=== PATIENT | male | born 1935 | race Caucasian/White ===

== ENCOUNTER 2022-07-18 01:29 | Inpatient (IN) ==
[2022-07-18] MEDS ORDERED: ACETAMINOPHEN 1000 MG/100 ML IV IV ONE (01:52)
[2022-07-18 02:37] LABS: Basophils # (auto) 0.02 K/uL (0-0.2); Basophils % (auto) 0.2 %; Eosinophils # (auto) 0.01 K/uL (0-0.50); Eosinophils % (auto) 0.1 %; Hematocrit (blood only) 40.4 % (40.1-51.0); Hemoglobin 13.5 g/dl (14.0-18.0); Immature Granulocytes # (auto) 0.03 K/uL (0.00-0.02); Immature Granulocytes % (auto) 0.4 %; Lymphocytes # (auto) 0.91 K/uL (1.2-3.4); Lymphocytes % (auto) 11.1 %; Mean Corpuscular Hemoglobin 30.3 pg (25.0-34.0); Mean Corpuscular Hgb Conc 33.4 g/dL (32.0-36.0); Mean Corpuscular Volume 90.8 fL (80.0-100.0); Mean Platelet Volume 12.7 fL (9.4-12.4); Monocytes # (auto) 1.27 K/uL (0.24-0.82); Monocytes % (auto) 15.4 %; Neutrophils # (auto) 5.99 K/uL (1.4-6.5); Neutrophils % (auto) 72.8 %; Platelet Count 125 K/uL (130-400); RDW Coefficient of Variation 14.7 % (11.5-14.5); RDW Standard Deviation 49.1 fL (36.4-46.3); Red Blood Count 4.45 M/uL (4.63-6.08); White Blood Count 8.23 K/ul (4.8-10.8)
[2022-07-18 02:47] LABS: Albumin Globulin Ratio 1.7 (0.9-2); Albumin Level 4.2 gm/dl (3.4-5.0); BUN Creatinine Ratio 10.9 (10-20); Bilirubin,Total 0.7 mg/dl (0.2-1.0); Calcium 9.2 mg/dl (8.5-10.1); Creatinine Clr Calc Pharmacy 60.4 ml/min; Est GFR (African American) 70.6 ml/min; Est GFR (Non-African American) 60.9 ml/min; Globulin 2.5 gm/dl (2.5-4.0); Potassium 4.4 mmol/L (3.5-5.1); Total Protein 6.7 gm/dl (6.0-8.3)
[2022-07-18 03:22] LABS: Influenza A virus by PCR Negative (Neg); Influenza B virus by PCR Negative (Neg); RSV by PCR Negative (Neg)
[2022-07-18 03:23] LABS: SARS CoV2 RNA(COVID-19) InHosp POSITIVE (Negative)
[2022-07-18] MEDS ORDERED: DEXAMETHASONE SOD INJ 4 MG/ML VIAL IV STA (03:55)
[2022-07-18] MEDS ORDERED: SODIUM CHLORIDE 0.9% 500 ML IV ONE (03:55)
[2022-07-18] MEDS ORDERED: SODIUM CHLORIDE 0.9% 1000ML 1,000 ML IV SCH (08:31)
[2022-07-18] MEDS ORDERED: ACETAMINOPHEN 325 MG TAB PO PRN (08:31)
[2022-07-18] MEDS ORDERED: NITROGLYCERIN SL 0.4 MG/TAB TAB SL PRN (08:31)
[2022-07-18] MEDS ORDERED: REMDESIVIR 200 MG in SODIUM CHLORIDE 0.9% 210 ML IV ONE (09:00)
[2022-07-18] MEDS: cefTRIAXone SODIUM 2,000 MG in DEXTROSE 5% 50 ML IV SCH (09:35)
[2022-07-18] MEDS: PANTOprazole 40 MG TAB PO SCH (09:36)
[2022-07-18] MEDS: DULoxetine HCL 20 MG CAP PO SCH (09:36)
[2022-07-18] MEDS: ATORVASTATIN 40 MG TAB PO SCH (09:36)
[2022-07-18] MEDS: GABAPENTIN 600 MG TAB PO SCH ×3 (09:36→21:11)
[2022-07-18] MEDS: ASPIRIN 81 MG ECTAB PO SCH (09:36)
[2022-07-18] MEDS: METOPROLOL SUCC 50MG EXT REL TAB PO SCH (09:38)
[2022-07-18] MEDS: ENOXAPARIN INJ 40 MG/0.4 ML SYR SQ SCH (09:38)
[2022-07-18] MEDS: FLUTICASONE FUROATE 100MCG 14 PUFFS/INHALER INH SCH (09:39)
--- NOTE | 2022-07-18 09:56 | History and Physical Report ---
DATE OF ADMISSION: 07/18/2022. CHIEF COMPLAINT: Illness, COVID positive. HISTORY OF PRESENT ILLNESS: This is an 86-year-old male with past medical history significant for hyperlipidemia, diabetes, idiopathic chronic gout, paroxysmal atrial fibrillation in the setting of severe sepsis, history of abdominal aortic aneurysm without rupture, history of CAD, status post RCA stent, history of nonmelanoma skin cancer, chronic kidney disease stage III, history of peripheral vascular disease, who presents with illness and found to have COVID positive. As per the , the patient has symptoms since last , about 4 days ago, with cough and nasal congestion and was falling frequently, fell 3 times, that is why he was brought to the hospital. In the hospital, he was spiking temperature, T-max of 38.6 and his COVID positive and he was hypoxemic, currently requiring 4 liters of oxygen. When he fell, he bumped his leg and he has a small cut in his small toe on the left leg, there are erythematic changes of the left foot. As per , the redness is chronic. The patient is resting comfortably, otherwise denies any shortness of breath, denies chest pain, denies any headache. No back pain, no belly pain, no pain in the legs. Appetite is okay. No blurred visions, no earache. Currently, denies runny nose. Has some sore throat from coughing. Somewhat constipated. Normal bladder movements. ALLERGIES: No known drug allergies. PAST MEDICAL HISTORY: As mentioned above. PAST SURGICAL HISTORY: Colonoscopy, EGD with biopsy, lasering of secondary cataract, tonsillectomy. MEDICATIONS: The patient is on aspirin 81 mg p.o. daily, atorvastatin 40 mg p.o. daily, duloxetine 20 mg p.o. daily, gabapentin 600 mg p.o. t.i.d., metformin 500 mg p.o. b.i.d., metoprolol succinate 50 mg p.o. daily, nitroglycerin 0.4 mg sublingual p.r.n., omeprazole 20 mg p.o. daily. FAMILY HISTORY: Significant for son has cancer, uncle has cancer, daughter has diabetes. SOCIAL HISTORY: . Quit smoking in 1980s, smoked 1 pack a day for 37 years. No alcohol use. No drug use. REVIEW OF SYSTEMS: As per HPI. Rest of review of systems is negative. PHYSICAL EXAMINATION: GENERAL: The patient is of moderate build, currently not in acute distress. VITAL SIGNS: Temperature 38.6, pulse 69, respiratory rate 17, blood pressure 101/70, oxygen 97% on 4 liters. HEENT: Pupils equal, round and reactive to light. Oral mucosa moist. NECK: No JVD. No neck masses. CARDIOVASCULAR: S1 and S2 heard. Regular rate and rhythm. No murmur, no gallop. RESPIRATORY SYSTEM: Normal AP diameter. No accessory muscle use. No wheezing, no crackles. ABDOMEN: Soft, bowel sounds present, nontender, no distention. CENTRAL NERVOUS SYSTEM: Cranial nerves II through XII are grossly intact, nonfocal. EXTREMITIES: Small cut seen in the lateral aspect of the small toe in the left leg with erythematous changes, mild warmth of the left foot. LABORATORY DATA: WBC 8.2, hemoglobin 13.5, hematocrit 40.4, platelets 125. Sodium 135, potassium 4.4, chloride 99, bicarb 26, BUN 12, creatinine 1.1, serum glucose 147. Lactate 2.1, calcium 9.2, total bilirubin 0.7, AST 45, ALT 48, alkaline phosphatase 73. SARS-CoV-2 PCR positive. Influenza A and B PCR negative. RSV PCR negative. Chest x-ray: No acute findings. EKG: Normal sinus rhythm at a rate of 80, some Q waves in inferior leads. No acute ST-T changes seen. ASSESSMENT AND PLAN: This 86-year-old male presents with ongoing illness and found to be COVID positive. 1. COVID-19 positive, pneumonia, hypoxia requiring oxygen. Symptoms started last . Meets criteria for remdesivir.Will start him on remdesivir, Decadron. Follow the remdesivir laboratories. Gentle fluids. Closely monitor in the med-telemetry. Follow the repeat lactic acid level. 2. Thrombocytopenia, platelets of 125, possibly from COVID. We will follow the repeat laboratories. 3. Possible cellulitis in the left foot. Start him on antibiotic, Rocephin. We will follow the response. 4. History of diabetes. Hold metformin. Place on insulin sliding scale. Follow the blood sugar while the patient is on steroids. 5. History of coronary artery disease, status post stent. Continue aspirin, statin, and metoprolol succinate. 6. History of paroxysmal atrial fibrillation when he had severe sepsis, not on anticoagulation, on aspirin and metoprolol. 7. History of hyperlipidemia, on statin. 8. History of blood pressure, on metoprolol. 9. History of gout, on allopurinol. 10. History of gastroesophageal reflux disease, on omeprazole. 11. Chronic kidney disease stage III, presents with creatinine of 1.1. We will follow the laboratories. 12. Deep venous thrombosis prophylaxis, Lovenox. We will monitor the platelets. DISPOSITION: Closely monitor in the med tele. PT/OT prior to discharge. Social service to help with discharge planning. Job ID: [id number] [email or web address]
[2022-07-18] MEDS: INSULIN ASPART PER UNIT SC SCH ×4 (10:06→21:11)
--- NOTE | 2022-07-18 10:56 | XRay Report ---
XR chest 1V portable CLINICAL HISTORY: Shortness of breath TECHNIQUE: Single frontal radiograph of the chest was obtained. Comparison: Comparison is made to chest radiograph 03/19/2019 FINDINGS: No lines and tubes are seen. Calcified aortic knob is seen. The lungs are clear. No evidence of pleur al effusion or pneumothorax. Healed rib fractures are seen. IMPRESSION: No acute chest disease. ACT 112: Negative or not required by law. Electronically signed by: Travis Perry M.D. 07/18/2022 10:55 AM
--- NOTE | 2022-07-18 12:49 | Electrocardiogram Report ---
Test Reason : Blood Pressure : / mmHG Vent. 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
--- NOTE | 2022-07-18 15:42 | Communication Note ---
Date of Service: July 18, 2022 Patient seen and examined at emergency department. Is comfortably lying in the bed; on 2 L of oxygen by nasal cannula. He is febrile to 38.6C. He denies any shortness of breath or chest pain. On examinationlungs are clear. S1-S2 heard, no murmur. Erythema, redness present in left foot. Assessment/plan COVID-19 infection -continue remdesivir and dexamethasone. Wean off oxygen to maintain saturation more than 92%. Left foot cellulitiscontinue on ceftriaxone. Follow blood cultures. CT abdomen and pelvis shows distended bladder; will order bladder scan and straight cath if necessary. We will send urinalysis. Continue home meds.
--- NOTE | 2022-07-18 16:03 | Emergency Department Note ---
Impression & Plan Hypoxia, COVID Admit to the [facility] ED Provider Note NAME: BRADY URIBE AGE: 86 SEX: M ARRIVES VIA: Ambulance INFORMANT: Patient and his ED PROVIDER(S): Justyna Mayo DO CHIEF COMPLAINT: Weakness/fall PLAN: Disposition: Admit to the [facility] Condition: Guarded MEDICAL DECISION MAKING: This is an 86-year-old male patient who presents to the emergency department with unsteadiness, weakness and multiple falls over the past 5 days. Patient has become increasingly delirious with significant upper respiratory congestion. Patient has a fever of 38.6 and is noted to be COVID-positive. On presentation to the emergency department. O2 saturations were low and he required 6 L via nasal cannula to maintain saturations above 90%. The patient was given IV normal saline solution and steroids here in the emergency department. [facility]. Triage Nursing notes reviewed and agree with them. Additional history obtained from the patient's Prior medical records reviewed Vital Signs: reviewed and remarkable for fever Differential diagnosis: Pneumonia, COVID-19, sepsis, bacteremia ER treatment provided: IV normal saline bolus IV Decadron Diagnostics interpreted by me: ECG: Normal sinus rhythm at [address] segment elevation or signs of ischemia. There is no ectopy Cardiac Monitoring: Normal sinus rhythm at 63 Laboratory studies: See below Imaging studies: Portable chest x-ray: No acute pulmonary infiltrates or consolidations. HPI: 86/M arrives for evaluation of generalized weakness and falls. Patient developed increasing weakness over the past 5 days. He is become unsteady on his feet with significant respiratory congestion. The patient is vaccinated against COVID. The patient's describes him as becoming confused and slightly delirious. ROS: See above HPI for pertinent positives & negatives. A total of 10 systems reviewed and were otherwise negative. PAST MEDICAL HISTORY:See Below PAST SURGICAL HISTORY:See Below FAMILY HISTORY:See Below SOCIAL HISTORY:See Below HOME MEDICATIONS:See list ALLERGIES:None VITALS:See Below PHYSICAL EXAMINATION: HEENT: Head - normocephalic and atraumatic Pupils are equal, round, and reactive to light. Extraocular eye muscles are intact, and sclera are anicteric. Nose - moist nasal mucosa without discharge. Mouth - moist buccal mucosa. Oropharynx is nonerythematous and there is no tonsillar exudate or edema noted. Neck: Supple; no JVD, nuchal rigidity, cervical lymphadenopathy, or auscultated bruits. Heart: Regular rate and rhythm. There is a normal S1 and S2 with no murmurs, clicks, or gallops appreciated. Lungs: Clear to auscultation bilaterally with no wheezes, rales, or rhonchi. Abdomen: Soft, completely nontender, nondistended, with good bowel sounds. There are no palpable pulsatile masses or hepatosplenomegaly. There is no guard ing, rigidity, or rebound noted. Extremities: No evidence of cyanosis, clubbing, or edema. There are easily palpable peripheral pulses. Skin: warm and dry with good turgor and no rashes. ED COURSE: Times/Reassessments: 320: Was evaluated in room B 10. A complete history and physical was performed. A septic protocol was performed. Laboratory studies were drawn. The patient remained on 6 L of O2 by nasal cannula to maintain his O2 saturations. Portable chest x-ray was performed. A COVID swab was sent. He was bolused with IV normal saline solution. A twelve-lead EKG was obtained as described above. An order was placed for continuous cardiac monitoring. Patient was in a normal sinus rhythm at a rate of 63. Patient was given IV De cadron. Blood cultures were obtained. [facility] for further management. I have personally spent greater than 40 minutes of critical care time in the direct management of this patient. This includes bedside care, interpretation of diagnostic studies, and testing, discussion with consultants, patient, and family members, and other required patient management activities. This 40 minutes is in excess of all separately billable procedures. Justyna Mayo DO Past Med/Surg History Medical History (Updated 07/18/22 @ 16:03 by Justyna Mayo DO) Diabetes mellitus Social History Smoking Status: Former smoker Hx Alcohol Use: No Hx Substance Use: No Copy Writer Required: No Beliefs That Will Affect Care: None Current Living Situation: Spouse Feels Safe at Home: Yes Assistive Devices: Cane Allergies Allergies Allergy/AdvReac Type Severity Reaction Status Date / Time No Known Allergies Allergy Mild Unverified 03/20/19 00:18 Home Meds Home Medications Medication Instructions Recorded Confirmed aspirin 81 mg tablet,delayed 81 mg PO DAILY 03/20/19 07/18/22 release (Aspir-) metformin 500 mg tablet 500 mg PO AMPM 03/20/19 07/18/22 metoprolol succinate 50 mg 50 mg PO DAILY 03/20/19 07/18/22 tablet,extended release 24 hr nitroglycerin 0.4 mg sublingual 0.4 mg sublingual .PRN PRN Chest 03/20/19 07/18/22 tablet (Nitrostat) Pain omeprazole 20 mg capsule,delayed 20 mg PO DAILY 03/20/19 07/18/22 release atorvastatin 40 mg tablet 40 mg PO DAILY 07/18/22 07/18/22 duloxetine 20 mg capsule,delayed 20 mg PO DAILY 07/18/22 07/18/22 release gabapentin 600 mg tablet 600 mg PO TID 07/18/22 07/18/22 Results & Data (ED) Vital Signs Vital Signs - 24 hr 07/18/22 02:01 07/18/22 03:00 07/18/22 03:27 Temperature 38.6 C H Temperature Source Oral Pulse Rate 90 74 73 Pulse Rate from SpO2 Sensor 75 Respiratory Rate 21 16 12 Blood Pressure 123/67 93/60 L 93/42 L Blood Pressure Mean 85 71 59 Pulse Oximetry 94 97 98 Oxygen Delivery Method Nasal Cannula Nasal Cannula Nasal Cannula Oxygen Flow Rate 6 6 6 Sepsis Recent Fever Within 48 Hours Yes Sepsis New/Unexplained Change in Mental Status Yes Sepsis Action Taken by Nursing Previously Notified 07/18/22 03:53 07/18/22 04:00 07/18/22 04:13 Temperature Temperature Source Pulse Rate 76 72 71 Pulse Rate from SpO2 Sensor Respiratory Rate 12 21 24 Blood Pressure 93/53 L 107/56 L 106/54 L Blood Pressure Mean 66 73 71 Pulse Oximetry 95 95 96 Oxygen Delivery Method Nasal Cannula Nasal Cannula Nasal Cannula Oxygen Flow Rate 6 6 4 Sepsis Recent Fever Within 48 Hours Sepsis New/Unexplained Change in Mental Status Sepsis Action Taken by Nursing 07/18/22 04:30 07/18/22 05:00 Temperature Temperature Source Pulse Rate 68 69 Pulse Rate from SpO2 Sensor Respiratory Rate 19 17 Blood Pressure 113/57 L 101/70 Blood Pressure Mean 75 80 Pulse Oximetry 96 97 Oxygen Delivery Method Nasal Cannula Nasal Cannula Oxygen Flow Rate 4 4 Sepsis Recent Fever Within 48 Hours Sepsis New/Unexplained Change in Mental Status Sepsis Action Taken by Nursing Laboratory Data Result diagrams: 07/18/22 01:44 07/18/22 01:44 Lab Results 07/18/22 07/18/22 07/18/22 Range/Units 01:44 01:44 03:55 WBC 8.23 (4.8-10.8) K/ul RBC 4.45 L (4.63-6.08) M/uL Hgb 13.5 L (14.0-18.0) g/dl Hct 40.4 (40.1-51.0) % MCV 90.8 (80.0-100.0) fL MCH 30.3 (25.0-34.0) pg MCHC 33.4 (32.0-36.0) g/dL RDW Std Deviation 49.1 H (36.4-46.3) fL RDW Coeff of Sandie 14.7 H (11.5-14.5) % Plt Count 125 L (130-400) K/uL MPV 12.7 H (9.4-12.4) fL Immature Gran % (Auto) 0.4 % Neut % (Auto) 72.8 % Lymph % (Auto) 11.1 % Armstrong % (Auto) 15.4 % Eos % (Auto) 0.1 % Baso % (Auto) 0.2 % Neut # (Auto) 5.99 (1.4-6.5) K/uL Lymph # (Auto) 0.91 L (1.2-3.4) K/uL Armstrong # (Auto) 1.27 H (0.24-0.82) K/uL Eos # (Auto) 0.01 (0-0.50) K/uL Baso # (Auto) 0.02 (0-0.2) K/uL Immature Gran # (Auto) 0.03 H (0.00-0.02) K/uL Sodium 135 L (136-145) mmol/L Potassium 4.4 (3.5-5.1) mmol/L Chloride 99 (98-107) mmol/L Carbon Dioxide 26 (21-32) mmol/L Anion Gap 10 (3-11) BUN 12 (6-23) mg/dl Creatinine 1.10 (0.6-1.4) mg/dl Est Cr Clr Drug Dosing 60.4 ml/min Est GFR ( Amer) 70.6 ml/min Est GFR (Non-Af Amer) 60.9 ml/min BUN/Creatinine Ratio 10.9 (10-20) Glucose 147 H (70-99(Fasting)) mg/dl Lactate 2.1 H* (0.4-2.0) mmol/L Calcium 9.2 (8.5-10.1) mg/dl Total Bilirubin 0.7 (0.2-1.0) mg/dl AST 45 H (13-39) U/L ALT 48 (7-52) U/L Alkaline Phosphatase 73 (34-104) U/L Total Protein 6.7 (6.0-8.3) gm/dl Albumin 4.2 (3.4-5.0) gm/dl Globulin 2.5 (2.5-4.0) gm/dl Albumin/Globulin Ratio 1.7 (0.9-2) Administered Medications Aspirin (Aspirin 81 Mg Ectab) 81 mg PO DAILY [place] Stop: 08/17/22 08:59 Last Admin: 07/18/22 09:36 Dose: 81 mg Documented By: OL Atorvastatin Calcium (Atorvastatin 40 Mg Tab) 40 mg PO DAILY [place] Stop: 08/17/22 08:59 Last Admin: 07/18/22 09:36 Dose: 40 mg Documented By: OL Duloxetine HCl (Duloxetine Hcl 20 Mg Cap) 20 mg PO DAILY [place] Stop: 08/17/22 08:59 Last Admin: 07/18/22 09:36 Dose: 20 mg Documented By: OL Enoxaparin Sodium (Enoxaparin Inj 40 Mg/0.4 Ml Syr) 40 mg SQ Q24H [place] Stop: 08/17/22 08:59 Last Admin: 07/18/22 09:38 Dose: 40 mg Documented By: OL Fluticasone Furoate (Fluticasone Furoate 100mcg 14 Puffs/Inhaler) 1 puffs INH DAILY [place] Stop: 08/17/22 08:59 Last Admin: 07/18/22 09:39 Dose: 1 puffs Documented By: OL Gabapentin (Gabapentin 600 Mg Tab) 600 mg PO TID [place] Stop: 08/17/22 08:59 Last Admin: 07/18/22 13:52 Dose: 600 mg Documented By: Admin: 07/18/22 09:36 Dose: 600 mg Documented By: HAL Ceftriaxone Sodium 2,000 mg/ (Dextrose) 70 mls @ 100 mls/hr IV Q24H [place]; Protocol Stop: 07/25/22 08:59 Last Infusion: 07/18/22 10:17 Dose: 0 mls/hr Documented By: Admin: 07/18/22 09:35 Dose: 100 mls/hr Documented By: HAL Insulin Aspart (Insulin Aspart Per Unit) 0 units SC ACHS [place] Stop: 08/17/22 08:30 Last Admin: 07/18/22 13:52 Dose: 4 units Documented By: LUIS FELIPE Co-signed By: KJ Admin: 07/18/22 10:06 Dose: 4 units Documented By: HAL Co-signed By: NATHAN Metoprolol Succinate (Metoprolol Succ 50mg Ext Rel Tab) 50 mg PO DAILY [place] Stop: 08/17/22 08:59 Last Admin: 07/18/22 09:38 Dose: 50 mg Documented By: HAL Pantoprazole Sodium (Pantoprazole 40 Mg Tab) 40 mg PO DAILY [place] Stop: 08/17/22 08:59 Last Admin: 07/18/22 09:36 Dose: 40 mg Documented By: HAL Discontinued Medications Acetaminophen (Acetaminophen 1000 Mg/100 Ml Iv) Confirm Administered Dose 1,000 mg IV .STK-MED ONE Stop: 07/18/22 01:53 Last Admin: 07/18/22 04:11 Dose: Not Given Documented By: LYNETTE Dexamethasone (Dexamethasone Sod Inj 4 Mg/Ml Vial) 10 mg IV NOW STA Stop: 07/18/22 03:56 Last Admin: 07/18/22 04:09 Dose: 10 mg Documented By: LYNETTE Sodium Chloride (Nss) 500 mls @ 999 mls/hr IV .Q31M ONE Stop: 07/18/22 04:25 Last Infusion: 07/18/22 04:40 Dose: 0 mls/hr Documented By: Admin: 07/18/22 04:09 Dose: 999 mls/hr Documented By: LYNETTE Sodium Chloride (Nss 1000ml) 1,000 mls @ 125 mls/hr IV .Q8H [place] Stop: 07/18/22 09:30 Last Admin: 07/18/22 10:24 Dose: 125 mls/hr Documented By: HAL Remdesivir 200 mg/ Sodium (Chloride) 250 mls @ 125 mls/hr IV ONE ONE; Protocol Stop: 07/18/22 10:59 Last Infusion: 07/18/22 12:53 Dose: 0 mls/hr Documented By: LUIS FELIPE Admin: 07/18/22 10:24 Dose: 125 mls/hr Documented By: HAL Imaging Data Radiologist's Impression: Chest X-Ray 07/18/22 02:26 XR chest 1V portable CLINICAL HISTORY: Shortness of breath TECHNIQUE: Single frontal radiograph of the chest was obtained. Comparison: Comparison is made to chest radiograph 03/19/2019 FINDINGS: No lines and tubes are seen. Calcified aortic knob is seen. The lungs are clear. No evidence of pleural effusion or pneumothorax. Healed rib fractures are seen. IMPRESSION: No acute chest disease. ACT 112: Negative or not required by law. Electronically signed by: Travis Perry M.D. 07/18/2022 10:55 AM Discharge Plan Visit Data Chief Complaint: Illness Stated Complaint: FALLS/UNSTEADY/WEAK/FEVER ED Provider: Justyna Mayo Discharge Problem: Hypoxia, COVID Patient Disposition: Admitted As Inpatient Discharge Instructions Interventions: ED Discharge Assessment Last Done: 07/18/22 08:32
[2022-07-18 18:29] LABS: Appearance Urine Clear (Clear); Bilirubin Urine Negative (Negative); Blood Urine Negative (Negative); Color Urine Yellow; Glucose Urine UA Negative (Negative); Ketones Urine Negative (Negative); Leukocyte Esterase Urine Negative (Negative); Nitrite Urine Negative (Negative); Protein Urine Negative (Negative); Specific Gravity Urine 1.016 (1.000-1.030); Urobilinogen Urine Negative (Negative)
[2022-07-19 06:08] LABS: Hematocrit (blood only) 36.3 % (40.1-51.0); Hemoglobin 12.4 g/dl (14.0-18.0); Immature Granulocytes # (auto) 0.03 K/uL (0.00-0.02); Immature Granulocytes % (auto) 0.4 %; Lymphocytes # (auto) 1.66 K/uL (1.2-3.4); Lymphocytes % (auto) 20.3 %; Mean Corpuscular Hemoglobin 30.8 pg (25.0-34.0); Mean Corpuscular Hgb Conc 34.2 g/dL (32.0-36.0); Mean Corpuscular Volume 90.1 fL (80.0-100.0); Mean Platelet Volume 12.5 fL (9.4-12.4); Monocytes # (auto) 0.81 K/uL (0.24-0.82); Monocytes % (auto) 9.9 %; Neutrophils # (auto) 5.68 K/uL (1.4-6.5); Neutrophils % (auto) 69.4 %; Platelet Count 124 K/uL (130-400); RDW Standard Deviation 49.2 fL (36.4-46.3); Red Blood Count 4.03 M/uL (4.63-6.08); White Blood Count 8.18 K/ul (4.8-10.8)
[2022-07-19 06:38] LABS: Albumin Globulin Ratio 1.8 (0.9-2); Albumin Level 3.9 gm/dl (3.4-5.0); BUN Creatinine Ratio 13.7 (10-20); Bilirubin,Total 0.5 mg/dl (0.2-1.0); Calcium 8.7 mg/dl (8.5-10.1); Creatinine Clr Calc Pharmacy 62.7 ml/min; Est GFR (African American) 77.3 ml/min; Est GFR (Non-African American) 66.7 ml/min; Globulin 2.2 gm/dl (2.5-4.0); Magnesium 2.1 mg/dl (1.7-2.4); Potassium 4.1 mmol/L (3.5-5.1); Total Protein 6.1 gm/dl (6.0-8.3)
[2022-07-19] MEDS: ASPIRIN 81 MG ECTAB PO SCH (08:37)
[2022-07-19] MEDS: PANTOprazole 40 MG TAB PO SCH (08:37)
[2022-07-19] MEDS: ATORVASTATIN 40 MG TAB PO SCH (08:38)
[2022-07-19] MEDS: GABAPENTIN 600 MG TAB PO SCH ×3 (08:38→21:24)
[2022-07-19] MEDS: DULoxetine HCL 20 MG CAP PO SCH (08:38)
[2022-07-19] MEDS: METOPROLOL SUCC 50MG EXT REL TAB PO SCH (08:38)
[2022-07-19] MEDS: FLUTICASONE FUROATE 100MCG 14 PUFFS/INHALER INH SCH (08:40)
[2022-07-19] MEDS: ENOXAPARIN INJ 40 MG/0.4 ML SYR SQ SCH (08:40)
[2022-07-19 08:43] LABS: Estimated Average Glucose 169 mg/dl; Hemoglobin A1C 7.5 % (4.5-5.6)
[2022-07-19] MEDS: INSULIN ASPART PER UNIT SC SCH ×4 (08:46→21:30)
[2022-07-19] MEDS: dexAMETHasone 6 MG in SYRINGE 0 ML IV SCH (09:02)
[2022-07-19] MEDS: cefTRIAXone SODIUM 2,000 MG in DEXTROSE 5% 50 ML IV SCH (09:04)
--- NOTE | 2022-07-19 11:17 | Urology Consultation ---
Date of Consultation July 19, 2022 Assessment & Plan (1) Urinary retention: Plan 86yo M admitted with Covid-19, pneumonia, hypoxia requiring oxygen. Patient was subsequently found to be in urinary retention and a Bañuelos catheter was placed with immediate return of 1375ml of urine. Urology consulted for bladder outlet obstruction. CTAP imaging reviewed - Prostatomegaly with urinary bladder distention and wall thickening noted, possible RHOADES. Afebrile and hemodynamically stable. Labs reviewed-no leukocytosis and normal renal function. Urinalysis 07/18 unremarkable. Bañuelos catheter intact, draining clear yellow urine. Plan- Recommend maintaining catheter for 7-10 days to allow for bladder rest/max decompression. Will arrange outpatient TOV. Can also consider addition of flomax and finasteride if no contraindications. Will arrange outpatient follow-up with our service. Urology will sign-off for now. Please contact us any further questions, concerns, or changes in patient status. History of Present Illness Reason for Consultation: Bladder outlet obstruction Attending Physician: Doyle Ward MD History of Present Illness This is an 86-year-old male with PMHx significant for DM, Afib w/RVR, GERD, HLD, CKD, CAD s/p RCA stent, PVD who presented with ill feelings and was admitted with Covid-19, pneumonia, hypoxia requiring oxygen, and thrombocytopenia. Urology consulted for bladder outlet obstruction. A CT abdomen pelvis was obtained on arrival and notable for prostamegaly with urinary bladder distention and wall thickening. He was bladder scanned for a PVR of > 1150ml. A 16 Yi Bañuelos catheter was placed by nursing with immediate return of 1375 mL of urine. Patient examined at bedside this AM. Awake, resting in bed on arrival. On isolation precautions for COVID-19. at bedside. Bañuelos catheter intact, draining clear yellow urine. Denies any pain or discomfort at present. No fevers or chills. No nausea or vomiting. He denies a prior urological history. Does not follow with a urologist. Denies personal and family history of bladder, kidney, or prostate issues. Former tobacco use. At baseline, he notes some urinary urgency, frequency, and slow stream. Denies any hematuria or dysuria. Nocturia 2-3. Notes some dribbling. Feels he empties for the most part. Has never taken any urinary medications. Allergies Allergy/AdvReac Type Severity Reaction Status Date / Time No Known Allergies Allergy Mild Unverified 03/20/19 00:18 Home Medications Medication Instructions Recorded Confirmed Type aspirin 81 mg tablet,delayed 81 mg PO DAILY 03/20/19 07/18/22 History release (Aspir-) metformin 500 mg tablet 500 mg PO AMPM 03/20/19 07/18/22 History metoprolol succinate 50 mg 50 mg PO DAILY 03/20/19 07/18/22 History tablet,extended release 24 hr nitroglycerin 0.4 mg sublingual 0.4 mg sublingual .PRN PRN Chest 03/20/19 07/18/22 History tablet (Nitrostat) Pain omeprazole 20 mg capsule,delayed 20 mg PO DAILY 03/20/19 07/18/22 History release atorvastatin 40 mg tablet 40 mg PO DAILY 07/18/22 07/18/22 History duloxetine 20 mg capsule,delayed 20 mg PO DAILY 07/18/22 07/18/22 History release gabapentin 600 mg tablet 600 mg PO TID 07/18/22 07/18/22 History Patient History Medical History (Updated 07/19/22 @ 11:56 by Doyle Ward MD) Diabetes mellitus Social History Smoking Status: Former smoker Hx Alcohol Use: No Hx Substance Use: No Network Cabler Required: No Beliefs That Will Affect Care: None Current Living Situation: Spouse Feels Safe at Home: Yes Assistive Devices: Cane Review of Systems Review of Systems: All systems reviewed & are unremarkable except as noted in HPI & below Physical Exam Constitutional: cooperative and comfortable; no acute distress Neck: normal visual inspection Respiratory: normal respiratory effort; no respiratory distress and no labored breathing Gastrointestinal (Abdomen): Inspection/Auscultation: abdomen normal to inspection Percussion/Palpation: abdomen soft; abdomen nontender Musculoskeletal: Head/Neck/Chest: normocephalic Skin: No visible rashes or lesions to exposed skin areas Neurologic: awake Psychiatric: Orientation: alert and oriented x 3 Genitourinary: Bañuelos catheter intact, draining clear yellow urine. Results & Data ([facility]) Vital Signs (Past 12 Hours) Vital Signs Temp Pulse Pulse Resp BP Pulse Ox O2 Del Method 07/19/22 07:53 58 L 07/19/22 06:43 36.5 C 56 L 18 118/67 90 Room Air 07/19/22 03:21 36.6 C 60 18 116/61 90 Room Air Diagnostic Findings CT abdomen pelvis - 1. Prostamegaly with urinary bladder distention and wall thickening. Correlate clinically to exclude urinary bladder outlet obstruction. 2. No bowel obstruction or focal bowel wall thickening. Normal appendix. 3. Hepatic steatosis. 4. 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 5. Additional findings as above. PG Care Time/CCT Total # of Minutes Spent Total Time Spent with Patient: Total time spent is greater than 50% in coordination of care (as documented) at patient's floor/unit and/or counseling patient: Coding Level of Care Code 00770 Initial Inpt Care Lvl 2 Diagnoses Urinary retention R33.9
--- NOTE | 2022-07-19 12:01 | Hospitalist Progress Note ---
Date of Service July 19, 2022 Assessment & Plan (1) Urinary retention: Plan: CT abdomen and pelvis showed distended bladder; Bañuelos was placed with return of clear urine on 07/18. Urology consulted; recommended bladder rest for 7 to 10 days and follow-up as outpatient for trial of void. (2) COVID: Plan: Presented with fever and chills. Required 4 L of oxygen by nasal cannula on admission. Chest x-ray unremarkable for pneumonia. Plan is to continue to monitor respiratory status and provide supplemental oxygen as needed. Continue dexamethasone and remdesivir. (3) Cellulitis: Plan: On admission, found to have small cut in the lateral aspect of small toe of left leg with erythematous changes. Improvement seen after starting antibiotics. Continue ceftriaxone for now; will switch to Keflex on discharge. (4) Diabetes mellitus: Plan: Home metformin on hold. POCT glucose well controlled on current regimen. Continue sliding scale insulin. A1c of 7.5% (5) Recurrent falls: Plan: Reported multiple falls after the onset of his illness. Can be related with cellulitis on his left foot. No focal deficit on examination. PT OT evaluation. Plan History of coronary artery disease, status post stent. Continue aspirin, statin, and metoprolol succinate. History of paroxysmal atrial fibrillation when he had severe sepsis, not on anticoagulation, on aspirin and metoprolol. History of hyperlipidemia, on statin. History of blood pressure, on metoprolol. History of gout, on allopurinol. History of gastroesophageal reflux disease, on omeprazole. Chronic kidney disease stage III, presents with creatinine of 1.1. We will follow the laboratories. Deep venous thrombosis prophylaxis, Lovenox. We will monitor the platelets. Admission and Anticipated Discharge Date Admission Date: July 18, 2022 Subjective Patient seen and examined at bedside. He is comfortably sitting up on the side of the bed. He is not on oxygen. He has been afebrile overnight. He was found to have urinary retention; Bañuelos was placed with return of clear urine. Review of Systems Review of Systems: All systems reviewed & are unremarkable except as noted in Subjective Physical Exam Physical Exam: GENERAL: The patient is of moderate build, currently not in acute distress. HEENT: Pupils equal, round and reactive to light. Oral mucosa moist. NECK: No JVD. No neck masses. CARDIOVASCULAR: S1 and S2 heard. Regular rate and rhythm. No murmur, no gallop. RESPIRATORY SYSTEM: Normal AP diameter. No accessory muscle use. No wheezing, no crackles. ABDOMEN: Soft, bowel sounds present, nontender, no distention. CENTRAL NERVOUS SYSTEM: Cranial nerves II through XII are grossly intact, nonfocal. EXTREMITIES: Small cut seen in the lateral aspect of the small toe in the left leg with erythematous changes, mild warmth of the left foot Results & Data Results & Data ([facility]) Vital Signs (Past 12 Hours) Vital Signs Temp Pulse Pulse Resp BP Pulse Ox O2 Del Method 07/19/22 07:53 58 L 07/19/22 06:43 36.5 C 56 L 18 118/67 90 Room Air 07/19/22 03:21 36.6 C 60 18 116/61 90 Room Air Laboratory Results Laboratory Results WBC 8.18 K/ul (4.8-10.8) 07/19/22 05:24 RBC 4.03 M/uL (4.63-6.08) L 07/19/22 05:24 Hgb 12.4 g/dl (14.0-18.0) L 07/19/22 05:24 Hct 36.3 % (40.1-51.0) L 07/19/22 05:24 MCV 90.1 fL (80.0-100.0) 07/19/22 05:24 MCH 30.8 pg (25.0-34.0) 07/19/22 05:24 MCHC 34.2 g/dL (32.0-36.0) 07/19/22 05:24 RDW Std Deviation 49.2 fL (36.4-46.3) H 07/19/22 05:24 RDW Coeff of Sandie 15.0 % (11.5-14.5) H 07/19/22 05:24 Plt Count 124 K/uL (130-400) L 07/19/22 05:24 MPV 12.5 fL (9.4-12.4) H 07/19/22 05:24 Immature Gran % (Auto) 0.4 % 07/19/22 05:24 Neut % (Auto) 69.4 % 07/19/22 05:24 Lymph % (Auto) 20.3 % 07/19/22 05:24 Morris % (Auto) 9.9 % 07/19/22 05:24 Eos % (Auto) 0.0 % 07/19/22 05:24 Baso % (Auto) 0.0 % 07/19/22 05:24 Neut # (Auto) 5.68 K/uL (1.4-6.5) 07/19/22 05:24 Lymph # (Auto) 1.66 K/uL (1.2-3.4) 07/19/22 05:24 Morris # (Auto) 0.81 K/uL (0.24-0.82) 07/19/22 05:24 Eos # (Auto) 0.00 K/uL (0-0.50) 07/19/22 05:24 Baso # (Auto) 0.00 K/uL (0-0.2) 07/19/22 05:24 Immature Gran # (Auto) 0.03 K/uL (0.00-0.02) H 07/19/22 05:24 Sodium 139 mmol/L (136-145) 07/19/22 05:24 Potassium 4.1 mmol/L (3.5-5.1) 07/19/22 05:24 Chloride 105 mmol/L (98-107) 07/19/22 05:24 Carbon Dioxide 27 mmol/L (21-32) 07/19/22 05:24 Anion Gap 7 (3-11) 07/19/22 05:24 BUN 14 mg/dl (6-23) 07/19/22 05:24 Creatinine 1.02 mg/dl (0.6-1.4) 07/19/22 05:24 Est Cr Clr Drug Dosing 62.7 ml/min 07/19/22 05:24 Est GFR ( Amer) 77.3 ml/min 07/19/22 05:24 Est GFR (Non-Af Amer) 66.7 ml/min 07/19/22 05:24 BUN/Creatinine Ratio 13.7 (10-20) 07/19/22 05:24 Glucose 137 mg/dl (70-99(Fasting)) H 07/19/22 05:24 POC Glucose 144 mg/dl (70-99) H 07/19/22 08:07 Estimat Average Glucose 169 mg/dl 07/19/22 05:24 Hemoglobin A1c 7.5 % (4.5-5.6) H 07/19/22 05:24 Lactate 2.1 mmol/L (0.4-2.0) H* 07/18/22 09:13 Calcium 8.7 mg/dl (8.5-10.1) 07/19/22 05:24 Magnesium 2.1 mg/dl (1.7-2.4) 07/19/22 05:24 Total Bilirubin 0.5 mg/dl (0.2-1.0) 07/19/22 05:24 AST 40 U/L (13-39) H 07/19/22 05:24 ALT 41 U/L (7-52) 07/19/22 05:24 Alkaline Phosphatase 59 U/L (34-104) 07/19/22 05:24 Total Protein 6.1 gm/dl (6.0-8.3) 07/19/22 05:24 Albumin 3.9 gm/dl (3.4-5.0) 07/19/22 05:24 Globulin 2.2 gm/dl (2.5-4.0) L 07/19/22 05:24 Albumin/Globulin Ratio 1.8 (0.9-2) 07/19/22 05:24 Urine Color Yellow 07/18/22 18:00 Urine Appearance Clear (Clear) 07/18/22 18:00 Urine pH 6.0 (4.5-7.5) 07/18/22 18:00 Ur Specific [place] 1.016 (1.000-1.030) 07/18/22 18:00 Urine Protein Negative (Negative) 07/18/22 18:00 Urine Glucose (UA) Negative (Negative) 07/18/22 18:00 Urine Ketones Negative (Negative) 07/18/22 18:00 Urine Blood Negative (Negative) 07/18/22 18:00 Urine Nitrite Negative (Negative) 07/18/22 18:00 Urine Bilirubin Negative (Negative) 07/18/22 18:00 Urine Urobilinogen Negative (Negative) 07/18/22 18:00 Ur Leukocyte Esterase Negative (Negative) 07/18/22 18:00 SARS-CoV-2 (PCR) POSITIVE (Negative) A* 07/18/22 Unknown Influenza Type A (PCR) Negative (Neg) 07/18/22 Unknown Influenza Type B (PCR) Negative (Neg) 07/18/22 Unknown RSV (RT-PCR) Negative (Neg) 07/18/22 Unknown Impressions Chest X-Ray 07/18/22 02:26 XR chest 1V portable CLINICAL HISTORY: Shortness of breath TECHNIQUE: Single frontal radiograph of the chest was obtained. Comparison: Comparison is made to chest radiograph 03/19/2019 FINDINGS: No lines and tubes are seen. Calcified aortic knob is seen. The lungs are clear. No evidence of pleural effusion or pneumothorax. Healed rib fractures are seen. IMPRESSION: No acute chest disease. ACT 112: Negative or not required by law. Electronically signed by: Travis Perry M.D. 07/18/2022 10:55 AM
[2022-07-19] MEDS: REMDESIVIR 100 MG in SODIUM CHLORIDE 0.9% 230 ML IV SCH (12:22)
[2022-07-20 07:18] LABS: Basophils # (auto) 0.01 K/uL (0-0.2); Basophils % (auto) 0.1 %; Hematocrit (blood only) 37.9 % (40.1-51.0); Hemoglobin 12.5 g/dl (14.0-18.0); Immature Granulocytes # (auto) 0.04 K/uL (0.00-0.02); Immature Granulocytes % (auto) 0.4 %; Lymphocytes # (auto) 1.84 K/uL (1.2-3.4); Lymphocytes % (auto) 17.6 %; Mean Corpuscular Hemoglobin 30.4 pg (25.0-34.0); Mean Corpuscular Volume 92.2 fL (80.0-100.0); Mean Platelet Volume 12.5 fL (9.4-12.4); Monocytes # (auto) 0.87 K/uL (0.24-0.82); Monocytes % (auto) 8.3 %; Neutrophils # (auto) 7.71 K/uL (1.4-6.5); Neutrophils % (auto) 73.6 %; Platelet Count 122 K/uL (130-400); RDW Coefficient of Variation 15.1 % (11.5-14.5); RDW Standard Deviation 51.3 fL (36.4-46.3); Red Blood Count 4.11 M/uL (4.63-6.08); White Blood Count 10.47 K/ul (4.8-10.8)
[2022-07-20 07:54] LABS: Albumin Globulin Ratio 1.4 (0.9-2); Albumin Level 3.9 gm/dl (3.4-5.0); BUN Creatinine Ratio 16.4 (10-20); Bilirubin,Total 0.5 mg/dl (0.2-1.0); Calcium 8.7 mg/dl (8.5-10.1); Creatinine Clr Calc Pharmacy 57.3 ml/min; Est GFR (African American) 70.6 ml/min; Est GFR (Non-African American) 60.9 ml/min; Globulin 2.7 gm/dl (2.5-4.0); Potassium 3.8 mmol/L (3.5-5.1); Total Protein 6.6 gm/dl (6.0-8.3)
[2022-07-20] MEDS: dexAMETHasone 6 MG in SYRINGE 0 ML IV SCH (08:24)
[2022-07-20] MEDS: FLUTICASONE FUROATE 100MCG 14 PUFFS/INHALER INH SCH (08:25)
[2022-07-20] MEDS: ENOXAPARIN INJ 40 MG/0.4 ML SYR SQ SCH (08:25)
[2022-07-20] MEDS: ASPIRIN 81 MG ECTAB PO SCH (08:26)
[2022-07-20] MEDS: PANTOprazole 40 MG TAB PO SCH (08:26)
[2022-07-20] MEDS: INSULIN ASPART PER UNIT SC SCH ×2 (09:03→12:10)
[2022-07-20] MEDS: cefTRIAXone SODIUM 2,000 MG in DEXTROSE 5% 50 ML IV SCH (09:08)
[2022-07-20] MEDS: METOPROLOL SUCC 50MG EXT REL TAB PO SCH (09:41)
[2022-07-20] MEDS: ATORVASTATIN 40 MG TAB PO SCH (09:41)
[2022-07-20] MEDS: GABAPENTIN 600 MG TAB PO SCH ×2 (09:42→14:02)
[2022-07-20] MEDS: DULoxetine HCL 20 MG CAP PO SCH (09:42)
[2022-07-20] MEDS: REMDESIVIR 100 MG in SODIUM CHLORIDE 0.9% 230 ML IV SCH (11:52)
--- NOTE | 2022-07-20 15:53 | Discharge Summary ---
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 As per the , the patient has symptoms since last , about 4 days ago, with cough and nasal congestion and was falling frequently, fell 3 times, that is why he was brought to the hospital. In the hospital, he was spiking temperature, T-max of 38.6 and his COVID positive and he was hypoxemic, currently requiring 4 liters of oxygen. When he fell, he bumped his leg and he has a small cut in his small toe on the left leg, there are erythematic changes of the left foot. As per , the redness is chronic. The patient is resting comfortably, otherwise denies any shortness of breath, denies chest pain, denies any headache. No back pain, no belly pain, no pain in the legs. Appetite is okay. No blurred visions, no earache. Currently, denies runny nose. Has some sore throat from coughing. Somewhat constipated. Normal bladder movements. Admission Exam Per Admitting Provider GENERAL: The patient is of moderate build, currently not in acute distress. VITAL SIGNS: Temperature 38.6, pulse 69, respiratory rate 17, blood pressure 101/70, oxygen 97% on 4 liters. HEENT: Pupils equal, round and reactive to light. Oral mucosa moist. NECK: No JVD. No neck masses. CARDIOVASCULAR: S1 and S2 heard. Regular rate and rhythm. No murmur, no gallop. RESPIRATORY SYSTEM: Normal AP diameter. No accessory muscle use. No wheezing, no crackles. ABDOMEN: Soft, bowel sounds present, nontender, no distention. CENTRAL NERVOUS SYSTEM: Cranial nerves II through XII are grossly intact, nonfocal. EXTREMITIES: Small cut seen in the lateral aspect of the small toe in the left leg with erythematous changes, mild warmth of the left foot. Principal Diagnosis COVID-19 infection Left leg cellulitis Urinary retention status post Bañuelos placement. Discharge Exam GENERAL: The patient is of moderate build, currently not in acute distress. HEENT: Pupils equal, round and reactive to light. Oral mucosa moist. NECK: No JVD. No neck masses. CARDIOVASCULAR: S1 and S2 heard. Regular rate and rhythm. No murmur, no gallop. RESPIRATORY SYSTEM: Normal AP diameter. No accessory muscle use. No wheezing, no crackles. ABDOMEN: Soft, bowel sounds present, nontender, no distention. CENTRAL NERVOUS SYSTEM: Cranial nerves II through XII are grossly intact, nonfocal. EXTREMITIES: improvement of left leg cellulitis Discharge Data Allergies Allergy/AdvReac Type Severity Reaction Status Date / Time No Known Allergies Allergy Mild Unverified 03/20/19 00:18 Consultations 07/18/22 03:56 ED Decision to Admit Stat 07/19/22 08:19 Consult Urology Routine Hospital Course (1) Urinary retention: (2) COVID: (3) Cellulitis: (4) Diabetes mellitus: (5) Recurrent falls: Plan Patient is a 86-year-old male with past medical history of hyperlipidemia, diab etes, paroxysmal A. fib in setting of severe sepsis, CAD presents to the ED with 4 days of cough and nasal congestion. He was also having frequent falls in the past 3 days. On presentation, he was febrile to 38.6C. He was found to be COVID-positive. Chest x-ray was done which did not show any infiltrates. He was also found to have left leg cellulitis. CT abdomen showed distended bladder with possible bladder outlet obstruction. He was admitted to the telemetry floor. He was started on IV fluids, remdesivir and dexamethasone. Ceftriaxone was started for the cellulitis. Bañuelos catheter was placed and urology was consulted for urinary retention. Over the course of the hospitalization, patient's fever subsided. Patient was saturating well in room air. PT OT evaluation was done; patient wanted to go home with the family. Patient was discharged on course of Keflex. He was instructed to follow-up with urology as outpatient. He was also started on tamsulosin. Patient was also instructed to follow-up with his primary care doctor as well. Total Time Total Time Spent Total Time Spent (In Minutes): 35 Total Time Includes: Examination of the Patient, Discharge Planning, Medication Reconciliation, Communication With Other Providers and Other Discharge Plan Discharge Items Patient Disposition: Home - Self-Care Reason For Visit: ILLNESS Discharge Diagnosis: COVID-19 infection Left leg cellulitis Urinary retention Activity: Resume your previous activity Non-emergency contact: Primary Care Provider Call non-emergency contact if: you have any medication questions and your symptoms worsen Follow-up/Referrals: [facility] [Other] (The urology office will call you with an appointment. [facility] [address] [facility] [place] [id number] ) Billy King DO [Primary Care Provider] - (Date & Time 07/28/2022 11:40 AM Provider Eron Tovar DO Department [facility] ) Diet: Regular Addtl Attending Provider Instructions: You were prescribed antibiotics ( Cefdinir 300mg) for next 5 days. Please take it twice a day. This is for the skin infection on your leg. You were found to have urinary retention for which a urinary catheter was placed. You are prescribed a medication called tamsulosin. Please take 1 tablet at bedtime. Please follow-up with the urologist in 1 week to take out the urinary catheter. Please follow-up with your primary care doctor in 1 week. Pending Studies at Discharge: No Stand-Alone Forms: My [facility] [employer], Smoking Cessation Medications and DC Order Prescriptions: New acetaminophen 325 mg Tablet 650 mg PO Q4H PRN (Reason: fever or pain) 30 Days Qty: 30 0RF cefdinir 300 mg capsule 300 mg PO BID 5 Days Qty: 10 0RF tamsulosin 0.4 mg capsule 0.4 mg PO HS Qty: 30 0RF Continued aspirin [Aspir-81] 81 mg Tablet,Delayed Release (Dr/Ec) 81 mg PO DAILY metformin 500 mg tablet 500 mg PO AMPM metoprolol succinate 50 mg Tablet Extended Release 24 Hr 50 mg PO DAILY omeprazole 20 mg capsule,delayed release(DR/EC) 20 mg PO DAILY nitroglycerin [Nitrostat] 0.4 mg Tablet, Sublingual 0.4 mg sublingual .PRN PRN (Reason: Chest Pain) Rx Instructions: NEEDED FOR CHEST PAIN : ONE TABLET UNDER THE TONGUE EVERY 5 MINUTES UP TO 3 DOSES. atorvastatin 40 mg tablet 40 mg PO DAILY gabapentin 600 mg tablet 600 mg PO TID duloxetine 20 mg capsule,delayed release(DR/EC) 20 mg PO DAILY Discharge Orders: Discharge Order (Routine); Ordered 07/20/22 Ordered By: Doyle Hurley/Other Patient Handouts: High Blood Sugar (Hyperglycemia), Hypoglycemia (Low Blood Sugar), Managing Type 2 Diabetes, Special Foot Care for Diabetes Admission Data Admit Date/Time: 07/18/22 05:21 Attending Provider: Doyle Ward Admit Provider: Tramaine Elliott Primary Care Provider: Billy King V. Other Providers: Tramaine Elliott ; Paxton Mata Other Interventions: Discharge Summary Assessment (RN) Last Done: 07/20/22 14:52
== END 2022-07-20 15:44 | disposition home or self-care (01) | DRG 178 ==
LOC: ED 01:29 → EDINP 05:21 → 2N 15:33

== ENCOUNTER 2022-08-12 18:17 | Inpatient (IN) ==
--- NOTE | 2022-08-12 18:37 | Emergency Department Note ---
Impression & Plan Sepsis, Urinary tract infection, Elevated lactic acid level, Hypomagnesemia, Cellulitis of left lower extremity ED Provider Note NAME: BRADY URIBE AGE: 86 SEX: M ARRIVES VIA: Ambulance INFORMANT: Patient ED PROVIDER(S): Russ Nguyen MD CHIEF COMPLAINT: fever PLAN: Disposition: Admit MEDICAL DECISION MAKING: The patient is a pleasant afebrile gentleman with a past medical history of hyperlipidemia, diabetes, idiopathic chronic gout, paroxysmal atrial fibrillation in the setting of severe sepsis, history of abdominal aortic aneurysm without rupture, history of CAD, status post RCA stent, history of nonmelanoma skin cancer, chronic kidney disease stage III, history of peripheral vascular disease,history of COVID-19 in July 2022 with admission to this facility from 07/18-07/20 who presents to the emergency department via EMS and e ventually accompanied by and son for evaluation of fevers and malaise that began today in the setting of having his Bañuelos catheter removed yesterday following successful voiding trial. Patient denies any nausea or vomiting. He denies any diarrhea. He denies any chest pain or shortness of breath. He was placed on 2 L nasal cannula after he was noted to be 88% on room air on arrival. On arrival the patient is uncomfortable, febrile to 38.5 with vital signs otherwise stable. He appears clinically dry. Abdomen is benign. He has erythema to the left lower leg and foot with warmth without crepitus. Family report this was present on his hospitalization and improved but now is returnin g. EKG without overt acute ischemia. CXR with airspace opacity left lung. WBC and platelets within normal limits. H/H similar to prior. VBG unremarkable. Chemistry without metabolic acidosis. Magnesium 1.5 with repletion provided. Electrolytes otherwise unremarkable. LFTs unremarkable. High-sensitivity troponin 18.8, within normal limits. Procalcitonin is not significantly elevated. UA is consistent with infection with positive nitrites, WBCs and 4+ bacteria. CT of the abdomen pelvis demonstrates moderate wall thickening of urinary bladder with surrounding inflammation consistent with UTI. Enlarged prostate gland measuring 5.3 cm. The patient was treated for sepsis with 30 cc/kg of normal saline in addition to empiric antibiotics with cefepime and vancomycin. Case was discussed with Dr. Elliott, [facility] hospitalist, who will evaluate the patient for admission. Triage Nursing notes reviewed and agree them. Prior medical records reviewed Vital Signs: reviewed and remarkable for fever, tachycardia. Differential diagnosis: Sepsis, UTI, pneumonia, metabolic, electrolyte abnormalities, cardiac sources, intracerebral event, toxicologic, neurologic, as well as other pathologies. ER treatment provided: See below. Diagnostics interpreted by me: ECG: Normal sinus rhythm, 84 bpm, no ectopy, right ventricular hypertrophy, no overt ST elevation or depression, QTC 446, QRS 84 Cardiac Monitoring: An order for continuous cardiac monitoring was placed and demonstrated Normal sinus rhythm, 84 bpm, no ectopy. Laboratory studies: See below Imaging studies: See below Consultation(s): Case was discussed with Dr. Elliott, [facility] hospitalist, who will evaluate the patient for admission. HPI: The patient is a pleasant afebrile gentleman with a past medical history of hyperlipidemia, diabetes, idiopathic chronic gout, paroxysmal atrial fibrillation in the setting of severe sepsis, history of abdominal aortic aneurysm without rupture, history of CAD, status post RCA stent, history of nonmelanoma skin cancer, chronic kidney disease stage III, history of peripheral vascular disease,history of COVID-19 in July 2022 with admission to this facility from 07/18-07/20 who presents to the emergency department via EMS and eventually accompanied by and son for evaluation of fevers and malaise that began today in the setting of having his Bañuelos catheter removed yesterday following successful voiding trial. Patient denies any nausea or vomiting. He denies any diarrhea. He denies any chest pain or shortness of breath. He was placed on 2 L nasal cannula after he was noted to be 88% on room air on arrival. ROS: See above HPI for pertinent positives & negatives. A total of 10 systems reviewed and were otherwise negative. VITALS:See Below PHYSICAL EXAMINATION: GENERAL: Awake, alert, well-appearing, in no distress HENT: Normocephalic, atraumatic. Oropharynx unremarkable. EYES: Normal conjunctiva. Sclera non-icteric. NECK: Supple. No nuchal rigidity. FROM. No JVD. RESPIRATORY: Clear to auscultation. CARDIAC: Regular rate, normal rhythm. Extremities warm and well perfused. Pulses equal. ABDOMEN: Soft, non-distended. No tenderness to palpation. No rebound or guarding. No masses. RECTAL: Deferred. MUSCULOSKELETAL: Chest examination reveals no tenderness. The back is symmetrical on inspection without obvious abnormality. There is no CVA tenderness to palpation. No joint edema. LOWER EXTREMITIES: Calves are equal size bilaterally and non-tender. Mild edema and erythema to the left lower leg and foot with warmth without crepitus. NEURO: Normal sensorium. No sensory or motor deficits noted. SKIN: No rash or jaundice noted. ED COURSE: Critical Care: I have personally spent greater than 65 minutes of critical care time in the direct management of this patient. This includes bedside care, interpretation of diagnostic studies, and testing, discussion with consultants, patient, and family members, and other required patient management activities. This 65 minutes is in excess of all separately billable procedures. Russ Nguyen MD Past Med/Surg History Medical History Atrial fibrillation with RVR Cellulitis COVID Diabetes mellitus Diabetic polyneuropathy GERD (gastroesophageal reflux disease) Urinary retention Family History Other Family history non-contributory Social History Smoking Status: Former smoker Hx Alcohol Use: No Hx Substance Use: No Preferred Language: Romanian Communication Ability: Effective Director Of Extension Work Required: No Beliefs That Will Affect Care: None Current Living Situation: Spouse Feels Safe at Home: Yes Assistive Devices: Glasses Allergies Allergies Allergy/AdvReac Type Severity Reaction Status Date / Time No Known Allergies Allergy Mild Verified 08/12/22 21:07 Home Meds Home Medications Medication Instructions Recorded Confirmed metformin 500 mg tablet 500 mg PO AMPM 03/20/19 08/12/22 metoprolol succinate 50 mg 50 mg PO DAILY 03/20/19 08/12/22 tablet,extended release 24 hr nitroglycerin 0.4 mg sublingual 0.4 mg sublingual .PRN PRN Chest 03/20/19 08/12/22 tablet (Nitrostat) Pain omeprazole 20 mg capsule,delayed 20 mg PO DAILY 03/20/19 08/12/22 release atorvastatin 40 mg tablet 40 mg PO DAILY 07/18/22 08/12/22 gabapentin 600 mg tablet 600 mg PO TID 07/18/22 08/12/22 allopurinol 300 mg tablet 300 mg PO HS 08/12/22 08/12/22 aspirin 81 mg tablet,delayed 81 mg PO DAILY 08/12/22 08/12/22 release multivitamin 1 tab PO DAILY 08/12/22 08/12/22 Previous Rx's Medication Instructions Recorded acetaminophen 325 mg tablet 650 mg PO Q4H PRN fever or pain 30 07/20/22 days #30 tabs finasteride 5 mg tablet 5 mg PO DAILY #30 tabs 07/27/22 tamsulosin 0.4 mg capsule 0.4 mg PO HS #30 caps 08/12/22 Results & Data (ED) Vital Signs Vital Signs - 24 hr 08/12/22 18:37 08/12/22 18:43 Temperature 38.5 C H Temperature Source Oral Pulse Rate 92 H Pulse Rate [Apical] 91 H Respiratory Rate 16 18 Blood Pressure 113/63 Blood Pressure Mean 79 Pulse Oximetry 88 L 93 Oxygen Delivery Method Room Air Nasal Cannula Oxygen Flow Rate 2 Sepsis Recent Fever Within 48 Hours Yes Sepsis New/Unexplained Change in Mental Status N/A Sepsis Action Taken by Nursing No Action Required Laboratory Data Attestation: I reviewed the patient's lab results. Result diagrams: 08/12/22 18:40 08/12/22 20:13 Lab Results 08/12/22 08/12/22 08/12/22 Range/Units 18:40 18:40 18:40 WBC 9.50 (4.8-10.8) K/ul RBC 4.41 L (4.63-6.08) M/uL Hgb 13.5 L (14.0-18.0) g/dl Hct 39.9 L (40.1-51.0) % MCV 90.5 (80.0-100.0) fL MCH 30.6 (25.0-34.0) pg MCHC 33.8 (32.0-36.0) g/dL RDW Std Deviation 48.5 H (36.4-46.3) fL RDW Coeff of Sandie 14.5 (11.5-14.5) % Plt Count 152 (130-400) K/uL MPV 12.1 (9.4-12.4) fL Immature Gran % (Auto) 0.4 % Neut % (Auto) 74.5 % Lymph % (Auto) 12.1 % [place] % (Auto) 12.6 % Eos % (Auto) 0.2 % Baso % (Auto) 0.2 % Neut # (Auto) 7.07 H (1.4-6.5) K/uL Lymph # (Auto) 1.15 L (1.2-3.4) K/uL [place] # (Auto) 1.20 H (0.24-0.82) K/uL Eos # (Auto) 0.02 (0-0.50) K/uL Baso # (Auto) 0.02 (0-0.2) K/uL Immature Gran # (Auto) 0.04 H (0.00-0.02) K/uL PT 11.6 (9.0-12.0) Seconds INR 1.1 (0.9-1.1) VBG pH (7.36-7.41) VBG pCO2 (38-50) mmHg VBG pO2 mmHg VBG HCO3 mmol/L VBG O2 Saturation % VBG Base Excess mEq/L Sodium 133 L (136-145) mmol/L Potassium TNP Chloride 99 (98-107) mmol/L Carbon Dioxide 25 (21-32) mmol/L Anion Gap 9 (3-11) BUN 15 (6-23) mg/dl Creatinine 1.09 (0.6-1.4) mg/dl Est Cr Clr Drug Dosing 51.2 ml/min Est GFR ( Amer) 71.4 ml/min Est GFR (Non-Af Amer) 61.6 ml/min BUN/Creatinine Ratio 13.8 (10-20) Glucose 160 H (70-99(Fasting)) mg/dl Lactate (0.4-2.0) mmol/L Calcium 9.1 (8.5-10.1) mg/dl Phosphorus 2.7 (2.5-4.9) mg/dl Magnesium 1.5 L (1.7-2.4) mg/dl Total Bilirubin 1.0 (0.2-1.0) mg/dl Direct Bilirubin TNP AST TNP ALT 27 (7-52) U/L Alkaline Phosphatase 74 (34-104) U/L Troponin I High Sens 18.8 (0-20) pg/ml Total Protein 6.7 (6.0-8.3) gm/dl Albumin 3.8 (3.4-5.0) gm/dl Procalcitonin (0-0.5) ng/ml Urine Color Urine Appearance (Clear) Urine pH (4.5-7.5) Ur Specific [place] (1.000-1.030) Urine Protein (Negative) Urine Glucose (UA) (Negative) Urine Ketones (Negative) Urine Blood (Negative) Urine Nitrite (Negative) Urine Bilirubin (Negative) Urine Urobilinogen (Negative) Ur Leukocyte Esterase (Negative) Urine WBC (Auto) (0-5) /hpf Urine RBC (Auto) (0-4) /hpf U Hyaline Cast (Auto) (0-5) /lpf U Epithel Cells (Auto) (0-5) /lpf Urine Bacteria (Auto) (Negative) Urine Crystals 08/12/22 08/12/22 08/12/22 Range/Units 18:40 18:40 18:40 WBC (4.8-10.8) K/ul RBC (4.63-6.08) M/uL Hgb (14.0-18.0) g/dl Hct (40.1-51.0) % MCV (80.0-100.0) fL MCH (25.0-34.0) pg MCHC (32.0-36.0) g/dL RDW Std Deviation (36.4-46.3) fL RDW Coeff of Sandie (11.5-14.5) % Plt Count (130-400) K/uL MPV (9.4-12.4) fL Immature Gran % (Auto) % Neut % (Auto) % Lymph % (Auto) % [place] % (Auto) % Eos % (Auto) % Baso % (Auto) % Neut # (Auto) (1.4-6.5) K/uL Lymph # (Auto) (1.2-3.4) K/uL [place] # (Auto) (0.24-0.82) K/uL Eos # (Auto) (0-0.50) K/uL Baso # (Auto) (0-0.2) K/uL Immature Gran # (Auto) (0.00-0.02) K/uL PT (9.0-12.0) Seconds INR (0.9-1.1) VBG pH (7.36-7.41) VBG pCO2 (38-50) mmHg VBG pO2 mmHg VBG HCO3 mmol/L VBG O2 Saturation % VBG Base Excess mEq/L Sodium (136-145) mmol/L Potassium Chloride (98-107) mmol/L Carbon Dioxide (21-32) mmol/L Anion Gap (3-11) BUN (6-23) mg/dl Creatinine (0.6-1.4) mg/dl Est Cr Clr Drug Dosing ml/min Est GFR ( Amer) ml/min Est GFR (Non-Af Amer) ml/min BUN/Creatinine Ratio (10-20) Glucose (70-99(Fasting)) mg/dl Lactate 2.2 H* (0.4-2.0) mmol/L Calcium (8.5-10.1) mg/dl Phosphorus (2.5-4.9) mg/dl Magnesium (1.7-2.4) mg/dl Total Bilirubin (0.2-1.0) mg/dl Direct Bilirubin AST ALT (7-52) U/L Alkaline Phosphatase (34-104) U/L Troponin I High Sens (0-20) pg/ml Total Protein (6.0-8.3) gm/dl Albumin (3.4-5.0) gm/dl Procalcitonin 0.10 (0-0.5) ng/ml Urine Color Yellow Urine Appearance Turbid A (Clear) Urine pH 8.0 H (4.5-7.5) Ur Specific [place] 1.017 (1.000-1.030) Urine Protein 2+ H (Negative) Urine Glucose (UA) Negative (Negative) Urine Ketones Negative (Negative) Urine Blood 3+ H (Negative) Urine Nitrite Positive A (Negative) Urine Bilirubin Negative (Negative) Urine Urobilinogen Negative (Negative) Ur Leukocyte Esterase 3+ H (Negative) Urine WBC (Auto) >30 H (0-5) /hpf Urine RBC (Auto) >30 H (0-4) /hpf U Hyaline Cast (Auto) 1-5 (0-5) /lpf U Epithel Cells (Auto) 10-20 H (0-5) /lpf Urine Bacteria (Auto) 4+ H (Negative) Urine Crystals Not Reportable 08/12/22 08/12/22 08/12/22 Range/Units 19:05 20:13 20:41 WBC (4.8-10.8) K/ul RBC (4.63-6.08) M/uL Hgb (14.0-18.0) g/dl Hct (40.1-51.0) % MCV (80.0-100.0) fL MCH (25.0-34.0) pg MCHC (32.0-36.0) g/dL RDW Std Deviation (36.4-46.3) fL RDW Coeff of Sandie (11.5-14.5) % Plt Count (130-400) K/uL MPV (9.4-12.4) fL Immature Gran % (Auto) % Neut % (Auto) % Lymph % (Auto) % [place] % (Auto) % Eos % (Auto) % Baso % (Auto) % Neut # (Auto) (1.4-6.5) K/uL Lymph # (Auto) (1.2-3.4) K/uL [place] # (Auto) (0.24-0.82) K/uL Eos # (Auto) (0-0.50) K/uL Baso # (Auto) (0-0.2) K/uL Immature Gran # (Auto) (0.00-0.02) K/uL PT (9.0-12.0) Seconds INR (0.9-1.1) VBG pH 7.44 H (7.36-7.41) VBG pCO2 39 (38-50) mmHg VBG pO2 46 mmHg VBG HCO3 27 mmol/L VBG O2 Saturation 80.6 % VBG Base Excess 2.3 mEq/L Sodium (136-145) mmol/L Potassium 4.8 Chloride (98-107) mmol/L Carbon Dioxide (21-32) mmol/L Anion Gap (3-11) BUN (6-23) mg/dl Creatinine (0.6-1.4) mg/dl Est Cr Clr Drug Dosing ml/min Est GFR ( Amer) ml/min Est GFR (Non-Af Amer) ml/min BUN/Creatinine Ratio (10-20) Glucose (70-99(Fasting)) mg/dl Lactate 1.8 (0.4-2.0) mmol/L Calcium (8.5-10.1) mg/dl Phosphorus (2.5-4.9) mg/dl Magnesium (1.7-2.4) mg/dl Total Bilirubin (0.2-1.0) mg/dl Direct Bilirubin 0.2 AST 20 ALT (7-52) U/L Alkaline Phosphatase (34-104) U/L Troponin I High Sens (0-20) pg/ml Total Protein (6.0-8.3) gm/dl Albumin (3.4-5.0) gm/dl Procalcitonin (0-0.5) ng/ml Urine Color Urine Appearance (Clear) Urine pH (4.5-7.5) Ur Specific [place] (1.000-1.030) Urine Protein (Negative) Urine Glucose (UA) (Negative) Urine Ketones (Negative) Urine Blood (Negative) Urine Nitrite (Negative) Urine Bilirubin (Negative) Urine Urobilinogen (Negative) Ur Leukocyte Esterase (Negative) Urine WBC (Auto) (0-5) /hpf Urine RBC (Auto) (0-4) /hpf U Hyaline Cast (Auto) (0-5) /lpf U Epithel Cells (Auto) (0-5) /lpf Urine Bacteria (Auto) (Negative) Urine Crystals Administered Medications Doxycycline Hyclate (Doxycycline Hyclate 100 Mg Cap) 100 mg PO BID [place] Stop: 08/19/22 23:43 Last Admin: 08/13/22 01:00 Dose: 100 mg Documented By: CATHIE Sodium Chloride (Nss 1000ml) 1,000 mls @ 100 mls/hr IV .Q10H [place] Stop: 08/13/22 19:43 Last Admin: 08/13/22 01:50 Dose: 100 mls/hr Documented By: CATHIE Discontinued Medications Sodium Chloride (Nss 1000ml) 500 mls @ 999 mls/hr IV .Q31M [place] Stop: 08/12/22 19:15 Last Infusion: 08/12/22 19:41 Dose: 0 mls/hr Documented By: Admin: 08/12/22 19:18 Dose: 999 mls/hr Documented By: KUSH Sodium Chloride (Nss 1000ml) 1,000 mls @ 999 mls/hr IV .Q1H1M [place] Stop: 08/12/22 20:45 Last Infusion: 08/12/22 20:54 Dose: 0 mls/hr Documented By: Admin: 08/12/22 19:41 Dose: 999 mls/hr Documented By: Infusion: 08/12/22 19:41 Dose: 999 mls/hr Documented By: Admin: 08/12/22 19:18 Dose: 999 mls/hr Documented By: KUSH Acetaminophen (Ofirmev) 1,000 mg in 100 mls @ 400 mls/hr IV NOW STA Stop: 08/12/22 18:59 Last Infusion: 08/12/22 19:41 Dose: 0 mls/hr Documented By: Admin: 08/12/22 19:18 Dose: 400 mls/hr Documented By: KUSH Cefepime HCl (Maxipime) 2,000 mg in 20 mls @ 5 mls/min IV NOW STA; Protocol Stop: 08/12/22 18:48 Last Admin: 08/12/22 19:17 Dose: 5 mls/min Documented By: KUSH Vancomycin HCl 2,000 mg/ (Sodium Chloride) 540 mls @ 200 mls/hr IV NOW ONE Stop: 08/12/22 21:26 Last Infusion: 08/12/22 23:47 Dose: 0 mls/hr Documented By: Admin: 08/12/22 19:41 Dose: 200 mls/hr Documented By: KUSH Magnesium Sulfate/Dextrose (Magnesium Sulfate / D5w) 1 gm in 100 mls @ 100 mls/hr IV Q1H [place] Stop: 08/12/22 22:15 Last Infusion: 08/13/22 01:55 Dose: 0 mls/hr Documented By: Admin: 08/13/22 00:44 Dose: 100 mls/hr Documented By: Infusion: 08/13/22 00:44 Dose: 100 mls/hr Documented By: Admin: 08/12/22 23:51 Dose: 100 mls/hr Documented By: CATHIE Piperacillin Sod/Tazobactam (Sod 4.5 gm/ Dextrose) 120 mls @ 200 mls/hr IV 0130 ONE; Protocol Stop: 08/13/22 02:05 Last Infusion: 08/13/22 02:27 Dose: 0 mls/hr Documented By: Admin: 08/13/22 01:50 Dose: 200 mls/hr Documented By: CATHIE Magnesium Sulfate/Dextrose (Magnesium Sulfate / D5w) 1 gm in 100 mls @ 50 mls/hr IV ONE ONE Stop: 08/13/22 03:23 Last Infusion: 08/13/22 04:35 Dose: 0 mls/hr Documented By: Admin: 08/13/22 02:27 Dose: 50 mls/hr Documented By: CATHIE Ioversol (Ioversol 350 Mg 100ml Prefilled Syringe) 94 ml IV ONCE ONE Stop: 08/12/22 21:16 Last Admin: 08/12/22 21:17 Dose: 94 ml Documented By: JUN Quetiapine Fumarate (Quetiapine Fumarate 25 Mg Tablet) 25 mg PO NOW ONE Stop: 08/13/22 01:50 Last Admin: 08/13/22 02:16 Dose: 25 mg Documented By: CATHIE Imaging Data Radiologist's Impression: Chest X-Ray 08/12/22 18:41 XR chest 1V portable CLINICAL HISTORY: Sepsis TECHNIQUE: Single frontal radiograph of the chest was obtained. Comparison: Comparison is made to chest radiograph 07/18/2022 FINDINGS: No lines and tubes are seen. Cardiomegaly is noted. Airspace opacity is seen in the left lung. There is mild prominence of the pulmonary vasculature. No evidence of pleural effusion or pneumothorax. IMPRESSION: 1. Airspace opacity in the left lung which may represent atelectasis, pneumonia, and/or aspiration. 2. Cardiomegaly and mild pulmonary edema. ACT 112: Negative or not required by law. Electronically signed by: Travis Perry M.D. 08/12/2022 7:41 PM [facility] Preliminary Findings Only See Final Report For Complete Findings CT HEAD: No acute intracranial hemorrhage. No midline shift or mass effect. The [place]-white matter differentiation is maintained throughout. Age-related cerebral volume loss. Periventricular and subcortical white matter hypoattenuation, consistent with chronic microangiopathy. Radiologist: Michael Medina MD Study ready at 21:22 and initial results transmitted at 21:23 Preliminary Findings Only See Final Report For Complete Findings CT ABDOMEN & PELVIS With Contrast: Atelectasis at the lung bases. Calcified mitral valve. Hepatic steatosis. Atrophy of the pancreas. No hydronephrosis or delayed nephrogram. Moderate wall thickening of the urinary bladder with surrounding inflammation, consistent with UTI. Associated air in the urinary bladder, correlate for recent Bañuelos catheter. Enlarged prostate gland measures 5.3 cm. Diverticulosis, without acute diverticulitis. No small bowel obstruction. Normal appendix. IMPRESSION: Moderate wall thickening of the urinary bladder with surrounding inflammation, consistent with UTI. Associated air in the urinary bladder, correlate for recent Bañuelos catheter. Radiologist: Michael Medina MD Study ready at 21:29 and initial results transmitted at 21:31 Discharge Plan Visit Data Chief Complaint: Fever Stated Complaint: altered, fever, lethargic ED Provider: Russ Nguyen Discharge Problem: Sepsis, Urinary tract infection, Elevated lactic acid level, Hypomagnesemia, Cellulitis of left lower extremity Patient Disposition: Admitted As Inpatient Discharge Instructions Interventions: ED Discharge Assessment Last Done: 08/12/22 23:09
[2022-08-12] MEDS ORDERED: VANCOMYCIN HCL 2,000 MG in SODIUM CHLORIDE 0.9% 500 ML IV ONE (18:45)
[2022-08-12] MEDS ORDERED: CEFEPIME 2,000 MG/20 ML VIAL IV STA (18:45)
[2022-08-12] MEDS ORDERED: ACETAMINOPHEN 1,000 MG/100 ML VIAL IV STA (18:45)
[2022-08-12] MEDS ORDERED: VANCOMYCIN CONSULT ACTIVE PRN (18:45)
[2022-08-12] MEDS ORDERED: SODIUM CHLORIDE 0.9% 1000ML 500 ML IV SCH (18:45)
[2022-08-12 19:09] LABS: Appearance Urine Turbid (Clear); Bacteria Urine Automated 4+ (Negative); Bilirubin Urine Negative (Negative); Blood Urine 3+ (Negative); Color Urine Yellow; Glucose Urine UA Negative (Negative); Ketones Urine Negative (Negative); Leukocyte Esterase Urine 3+ (Negative); Nitrite Urine Positive (Negative); RBC Urine Automated >30 /hpf (0-4); Specific Gravity Urine 1.017 (1.000-1.030); Urobilinogen Urine Negative (Negative); WBC Urine Automated >30 /hpf (0-5)
[2022-08-12 19:14] LABS: INR 1.1 (0.9-1.1); Prothrombin Time 11.6 Seconds (9.0-12.0)
[2022-08-12 19:14] LABS: Base Excess VBG 2.3 mEq/L; HCO3 VBG 27 mmol/L; Oxygen Saturation VBG 80.6 %; PCO2 VBG 39 mmHg (38-50); PO2 VBG 46 mmHg; pH VBG 7.44 (7.36-7.41)
[2022-08-12] MEDS: SODIUM CHLORIDE 0.9% 1000ML 1,000 ML IV SCH ×2 (19:18→19:41)
[2022-08-12 19:24] LABS: Basophils # (auto) 0.02 K/uL (0-0.2); Basophils % (auto) 0.2 %; Eosinophils # (auto) 0.02 K/uL (0-0.50); Eosinophils % (auto) 0.2 %; Hematocrit (blood only) 39.9 % (40.1-51.0); Hemoglobin 13.5 g/dl (14.0-18.0); Immature Granulocytes # (auto) 0.04 K/uL (0.00-0.02); Immature Granulocytes % (auto) 0.4 %; Lymphocytes # (auto) 1.15 K/uL (1.2-3.4); Lymphocytes % (auto) 12.1 %; Mean Corpuscular Hemoglobin 30.6 pg (25.0-34.0); Mean Corpuscular Hgb Conc 33.8 g/dL (32.0-36.0); Mean Corpuscular Volume 90.5 fL (80.0-100.0); Mean Platelet Volume 12.1 fL (9.4-12.4); Monocytes % (auto) 12.6 %; Neutrophils # (auto) 7.07 K/uL (1.4-6.5); Neutrophils % (auto) 74.5 %; Platelet Count 152 K/uL (130-400); RDW Coefficient of Variation 14.5 % (11.5-14.5); RDW Standard Deviation 48.5 fL (36.4-46.3); Red Blood Count 4.41 M/uL (4.63-6.08)
[2022-08-12 19:30] LABS: Protein Urine 2+ (Negative)
--- NOTE | 2022-08-12 19:42 | XRay Report ---
XR chest 1V portable CLINICAL HISTORY: Sepsis TECHNIQUE: Single frontal radiograph of the chest was obtained. Comparison: Comparison is made to chest radiograph 07/18/2022 FINDINGS: No lines and tubes are seen. Cardiomegaly is noted. Airspace opacity is seen in the left lung. There is mild prominence of the pulmonary vasculature. No evidence of pleural effusion or pneumothorax. IMPRESSION: 1. Airspace opacity in the left lung which may represent atelectasis, pneumonia, and/or aspiration. 2. Cardiomegaly and mild pulmonary edema. ACT 112: Negative or not required by law. Electronically signed by: Travis Perry M.D. 08/12/2022 7:41 PM
[2022-08-12 19:49] LABS: Troponin I High Sensitivity 18.8 pg/ml (0-20)
[2022-08-12 20:06] LABS: Alanine Aminotransferase 27 U/L (7-52); Albumin Level 3.8 gm/dl (3.4-5.0); Alkaline Phosphatase 74 U/L (34-104); Anion Gap 9 (3-11); BUN Creatinine Ratio 13.8 (10-20); Blood Urea Nitrogen 15 mg/dl (6-23); Calcium 9.1 mg/dl (8.5-10.1); Carbon Dioxide 25 mmol/L (21-32); Chloride 99 mmol/L (98-107); Creatinine Clr Calc Pharmacy 51.2 ml/min; Est GFR (African American) 71.4 ml/min; Est GFR (Non-African American) 61.6 ml/min; Glucose 160 mg/dl (70-99(Fasting)); Magnesium 1.5 mg/dl (1.7-2.4); Phosphorus 2.7 mg/dl (2.5-4.9); Sodium 133 mmol/L (136-145); Total Protein 6.7 gm/dl (6.0-8.3)
[2022-08-12 21:06] LABS: Bilirubin Direct 0.2 mg/dl (0-0.2); Potassium 4.8 mmol/L (3.5-5.1)
[2022-08-12] MEDS ORDERED: IOVERSOL 350 MG 100mL Prefilled Syringe IV ONE (21:15)
[2022-08-12] MEDS ORDERED: ONDANSETRON INJ 2 MG/ML 2 ML VIAL IV PRN (23:44)
[2022-08-12] MEDS ORDERED: POLYETHYLENE (MIRALAX) 17 GM PACK PO PRN (23:44)
[2022-08-12] MEDS ORDERED: NITROGLYCERIN SL 0.4 MG/TAB TAB SL PRN ×2 (23:44)
[2022-08-12] MEDS: MAGNESIUM SULFATE / D5W 1 GM/100 ML BAG IV SCH (23:51)
[2022-08-13] MEDS: MAGNESIUM SULFATE / D5W 1 GM/100 ML BAG IV SCH (00:44)
[2022-08-13] MEDS: DOXYCYCLINE HYCLATE 100 MG CAP PO SCH ×3 (01:00→20:58)
[2022-08-13] MEDS ORDERED: GLUCAGON FOR INJ 1 MG VIAL IM PRN (01:15)
[2022-08-13] MEDS ORDERED: DEXTROSE 50% 50 ML SYRINGE IV PRN (01:15)
[2022-08-13] MEDS ORDERED: CARBOHYDRATES FOR HYPOGLYCEMIA PO PRN (01:15)
[2022-08-13] MEDS ORDERED: GLUCOSE 40% GEL 15 GM TUBE PO PRN (01:15)
[2022-08-13] MEDS ORDERED: GLUCOSE 10 TAB/TUBE PO PRN (01:15)
[2022-08-13] MEDS ORDERED: MAGNESIUM SULFATE / D5W 1 GM/100 ML BAG IV ONE (01:24)
[2022-08-13] MEDS ORDERED: PIPERACILLIN/TAZOBACTAM 4.5 GM in DEXTROSE 5% 100 ML IV ONE (01:30)
--- NOTE | 2022-08-13 01:47 | History and Physical Report ---
DATE OF ADMISSION: 08/12/2022. CHIEF COMPLAINT: Fever and chills. HISTORY OF PRESENT ILLNESS: This is an 86-year-old male with past medical history significant for hyperlipidemia, diabetes, idiopathic chronic gout, history of paroxysmal atrial fibrillation in the setting of severe sepsis, history of abdominal aortic aneurysm without rupture, history of CAD, status post RCA stent; history of nonmelanoma skin cancer, history of chronic kidney disease stage III, history of peripheral vascular disease, was recently in the hospital with COVID positive, initially required oxygen, but he did okay later and he also found to have urinary retention, status post Bañuelos catheter and discharged home with Bañuelos, followed outpatient with Urology, initially failed voiding trial, but voided yesterday. Bañuelos was taken out yesterday and today he developed fevers and feeling chills, not feeling well and had burning micturition and came to the hospital. He says he has been micturating okay. In the hospital, his temp was 38.5, pulse was in the 90s. Urine was grossly positive. CT abdomen and pelvis preliminary report shows moderate wall thickening of the urinary bladder with surrounding inflammation consistent with UTI. Currently, the patient is resting comfortably, hemodynamically stable. No headache, no neck pain, no chest pain, no back pain, no abdominal pain. Some pain in the left small toe with small healing open ulcer, which happened when he fell seemed to be last month. No blurred visions, no earache, no runny nose, no sore throat. No cough. Appetite is okay. Eating and drinking okay. No difficulty swallowing. No shortness of breath, no cough, no nausea, no abdominal pain. ALLERGIES: No known drug allergies. PAST MEDICAL HISTORY: As mentioned above. PAST SURGICAL HISTORY: Colonoscopy with biopsy, EGD with biopsy, lasering of secondary cataract, tonsillectomy. MEDICATIONS: Currently, the patient is on Tylenol 650 mg p.o. q.4 hours p.r.n., allopurinol 300 mg p.o. at bedtime, aspirin 81 mg p.o. daily, atorvastatin 40 mg p.o. daily, finasteride 5 mg p.o. daily, gabapentin 600 mg p.o. t.i.d., metformin 500 mg p.o. b.i.d., metoprolol succinate 50 mg p.o. daily, multivitamin 1 tablet p.o. daily, nitroglycerin 0.4 mg sublingual p.r.n., omeprazole 20 mg p.o. daily, Flomax 0.4 mg p.o. at bedtime. FAMILY HISTORY: Significant for son has cancer, uncle has cancer, daughter has diabetes. SOCIAL HISTORY: . Quit smoking in 1989, smoked 1 pack a day for 37 years. No alcohol use. No drug use. REVIEW OF SYSTEMS: As per HPI. Rest of the review of systems is negative. PHYSICAL EXAMINATION: GENERAL: The patient is of moderate build, not in acute distress. VITAL SIGNS: Temperature 38.5, pulse 91, respiratory rate 18, blood pressure 113/63, oxygen 93% on 2 liters. HEENT: Pupils equal, round and reactive to light. Oral mucosa moist. NECK: No JVD or neck masses. CARDIOVASCULAR: S1 and S2 heard. Regular rate and rhythm. No murmur, no gallop. RESPIRATORY: Normal AP diameter. No accessory muscle use. No wheezing, no crackles. ABDOMEN: Soft, bowel sounds present, nontender, no distention. CENTRAL NERVOUS SYSTEM: Cranial nerves II through XII are grossly intact, nonfocal. EXTREMITIES: Trace pedal edema, some open slow healing ulcer seen on the left small toe on the lateral aspect. LABORATORY DATA: WBC is 9.5, hemoglobin 13.5, hematocrit 39.9, platelets 152. PT 11.6, INR 1.1. Venous pH is 7.44. Sodium 133, potassium 4.8, chloride 99, bicarbonate 25, BUN 15, creatinine 1.09, serum glucose 160. Lactate initially was 2.2, repeat is 1.8, calcium 9.1, phosphorus 2.7, magnesium 1.5, total bilirubin 1, direct bilirubin 0.2, AST 20, ALT 27, alkaline phosphatase 74. Troponin I high sensitivity 18.8. Procalcitonin 0.1. Urinalysis positive for nitrite and +3 leukocyte esterase and +4 bacteria. IMAGING DATA: CT of the head, preliminary report, no acute findings. CT abdomen and pelvis consistent with urinary tract infection. Chest x-ray, airspace opacity in the left lung, which may represent atelectasis, pneumonia and/or aspiration, cardiomegaly and mild pulmonary edema. EKG: Normal sinus rhythm, rate of 84.No acute st changes seen. ASSESSMENT AND PLAN: This is an 86-year-old female, who presents with sepsis, most likely from urinary tract infection. 1. Sepsis, most likely from urinary tract infection: Urine is grossly positive, meets criteria for sepsis with fever, tachycardia, pulse rate in the 90s and lactic acid initially was 2.2, secondary to UTI. Possible pneumonia on chest x- ray, the opacity could be from recent COVID infection. ER gave cefepime. Empirically started Zosyn and p.o. doxycycline. Follow the cultures. IV fluid, normal saline 100 mL per hour x2 liters. Closely monitor in the [employer] tele. Follow the response. 2. Urinary retention: Recently was on the Bañuelos catheter. Currently, Bañuelos was taken out yesterday, on Flomax and finasteride. Monitor for urinary retention. 3. History of diabetes: Hold metformin. Place on insulin sliding scale. Follow the blood sugars. 4. History of coronary artery disease, status post stent: Continue aspirin, statin, and metoprolol succinate. 5. History of paroxysmal atrial fibrillation when he had severe sepsis: Not on anticoagulation, on aspirin and metoprolol. 6. History of hyperlipidemia: On statin. 7. History of blood pressure: On metoprolol. We will monitor the blood pressure. 8. History of gout: On allopurinol. 9. History of gastroesophageal reflux disease: On omeprazole. 10. Chronic kidney disease, stage III: Creatinine is 1.09 today. We will follow the labs. 11. Deep venous thrombosis prophylaxis: Placed on Lovenox. Addendum: On the floor was getting agitated.,gave a dose of Seroquel and placed on mitts. Also seems jay colored urine. stopped Lovenox and placed urology consult. DISPOSITION: Closely monitor in the [employer] tele. PT/OT prior to discharge. Social service to help with discharge planning. Job ID: [id number] [facility]
[2022-08-13] MEDS ORDERED: QUEtiapine FUMARATE 25 MG TABLET PO ONE (01:49)
[2022-08-13] MEDS: SODIUM CHLORIDE 0.9% 1000ML 1,000 ML IV SCH ×2 (01:50→15:04)
--- NOTE | 2022-08-13 02:09 | Urology Consultation ---
Date of Consultation August 13, 2022 Assessment & Plan (1) Hematuria: The patient has been admitted on the hospitalist service due to concern of sepsis from urinary source. We recommend proceeding as follows: Maintain Bañuelos catheter for adequate urine drainage. I discussed with nursing that if catheter becomes clogged manual irrigation can be employed. It would be reasonable to attempt another voiding trial prior to discharge home Continue broad-spectrum antibiotics as ordered by the hospitalist service Follow serial labs Follow culture results from which antibiotics can be further tailored Supervising Physician Co-Signing Physician Notes I have discussed Mr. Suarez's case with Hu Guerrero PA-C and agree with the above documentation. He appears to have source control as his bladder is draining well. For now would recommend continuing broad-spectrum antibiotics and narrowing as culture data becomes available. History of Present Illness Reason for Consultation: Hematuria Attending Physician: Doyle Ward MD History of Present Illness This is an 86-year-old male who was recently admitted to [facility] in July 2022 secondary to COVID-pneumonia. Patient was seen by the urology service due to urinary retention and Bañuelos catheter was required for this modality. The patient was discharged home with a Bañuelos in place. The patient was most recently seen in the clinic by Dr. Mata on 08/10/2022. At this visit Dr. Mata performed a cystoscopy. The patient was noted to have a significant enlarged prostate gland with moderate irritation of the prostatic urethra. No strictures were noted. The patient reportedly had his Bañuelos catheter removed and successfully completed a voiding trial thereafter. The patient presented to the emergency department today because since his Bañuelos catheter was removed he developed fevers and chills along with some dysuria. He denies any decreased urine stream. He denies any back or flank pain. He denies any nausea or vomiting. He denies any abdominal pain. Since arrival to the hospital the patient has had labs and imaging which independent reviewed. A chest x-ray showed concern for an airspace opacity in the left lung that with the could potentially represent pneumonia. A CT scan of the head did not show acute intracranial process. A CT scan of the abdomen and pelvis showed no evidence of hydronephrosis. There is wall thickening of the urinary bladder with surrounding inflammation which was felt to be consistent with a urinary tract infection. Prostate gland was noted to be enlarged on the study. Labs included a CBC were white blood cell count was normal. Hemoglobin and hematocrit were 13.5 and 39.9. Platelet count was noted to be normal. Chemistry profile showed sodium was 133 with a potassium that was normal. BUN and creatinine were normal. Lactic acid level was not elevated. Urinalysis showed concern for urinary tract infection as it was positive for nitrites and 3+ positive for leukocyte esterase. There were greater than 30 white blood cells per high-power field and 4+ bacteria. Since arrival to the hospital the patient has had a Bañuelos catheter placed back in. I did discuss with the nurse at bedside and initially the urine was clear but has since become blood-tinged. No visible clots were noted. The patient has been bladder scanned and he was not retaining urine and the catheter was draining appropriately. At the time of my interview he was resting comfortably in bed in no distress. Allergies Allergy/AdvReac Type Severity Reaction Status Date / Time No Known Allergies Allergy Mild Verified 08/12/22 21:07 Home Medications Medication Instructions Recorded Confirmed Type metformin 500 mg tablet 500 mg PO AMPM 03/20/19 08/12/22 History metoprolol succinate 50 mg 50 mg PO DAILY 03/20/19 08/12/22 History tablet,extended release 24 hr nitroglycerin 0.4 mg sublingual 0.4 mg sublingual .PRN PRN Chest 03/20/19 08/12/22 History tablet (Nitrostat) Pain omeprazole 20 mg capsule,delayed 20 mg PO DAILY 03/20/19 08/12/22 History release atorvastatin 40 mg tablet 40 mg PO DAILY 07/18/22 08/12/22 History gabapentin 600 mg tablet 600 mg PO TID 07/18/22 08/12/22 History acetaminophen 325 mg tablet 650 mg PO Q4H PRN fever or pain 30 07/20/22 08/12/22 Rx days #30 tabs finasteride 5 mg tablet 5 mg PO DAILY #30 tabs 07/27/22 08/12/22 Rx allopurinol 300 mg tablet 300 mg PO HS 08/12/22 08/12/22 History aspirin 81 mg tablet,delayed 81 mg PO DAILY 08/12/22 08/12/22 History release multivitamin 1 tab PO DAILY 08/12/22 08/12/22 History tamsulosin 0.4 mg capsule 0.4 mg PO HS #30 caps 08/12/22 08/12/22 Rx Patient History Medical History Atrial fibrillation with RVR Cellulitis COVID Diabetes mellitus Diabetic polyneuropathy GERD (gastroesophageal reflux disease) Urinary retention Family History Other Family history non-contributory Social History Smoking Status: Former smoker Hx Alcohol Use: No Hx Substance Use: No Preferred Language: Czech Communication Ability: [employer] Required: No Beliefs That Will Affect Care: None Current Living Situation: Spouse Feels Safe at Home: Yes Assistive Devices: Glasses Review of Systems Constitutional: + fever and + chills Eyes: no eye pain Ear, Nose, Mouth, Throat: no ear pain Respiratory: no cough Cardiovascular: no chest pain Gastrointestinal: no abdominal pain, no nausea and no vomiting Genitourinary: + as per Subjective / HPI Musculoskeletal: no back pain Integumentary: no rash Neurologic: no localized weakness Physical Exam Constitutional: WD/WN, vitals as above Eyes: no conjunctival abnormality ENMT: Ears: no hearing impairment and no external ear abnormality Mouth: no oropharynx abnormality Neck: trachea midline Respiratory: normal respiratory effort; no respiratory distress and no labored breathing Cardiovascular: Rate/Rhythm: regular rate and regular rhythm Gastrointestinal (Abdomen): Abdomen is soft, nonrigid, nondistended and nontender to palpation. Musculoskeletal: No calf tenderness Skin: no rashes Neurologic: moves all extremities Psychiatric: A+Ox3, euthymic affect Genitourinary: no CVA tenderness Bañuelos catheter in place draining blood- tinged urine. No visible clots are in collection bag Results & Data ([facility]) Vital Signs (Past 12 Hours) Vital Signs Temp Pulse Pulse Resp BP BP Pulse Ox 08/12/22 23:39 82 08/13/22 00:01 08/13/22 00:01 36.8 C 96 H 20 155/74 H 94 08/12/22 23:44 08/12/22 23:44 36.8 C 96 H 20 155/74 H 94 08/12/22 23:06 103 H 18 95 08/12/22 18:43 91 H 18 93 08/12/22 18:37 38.5 C H 92 H 16 113/63 88 L Pulse Ox O2 Del Method O2 Del Method O2 Flow Rate O2 Flow Rate 08/12/22 23:39 08/13/22 00:01 Nasal Cannula 2 08/13/22 00:01 Nasal Cannula 2 08/12/22 23:44 94 Nasal Cannula 2 08/12/22 23:44 Nasal Cannula 2 08/12/22 23:06 Nasal Cannula 2 08/12/22 18:43 Nasal Cannula 2 08/12/22 18:37 Room Air PG Care Time/CCT Total # of Minutes Spent Total Time Spent with Patient: Total time spent is greater than 50% in coordination of care (as documented) at patient's floor/unit and/or counseling patient: Coding Level of Care Code 61768 Inpt Consult Level 5 Diagnoses Hematuria R31.9
[2022-08-13 06:35] LABS: Basophils # (auto) 0.02 K/uL (0-0.2); Basophils % (auto) 0.2 %; Hemoglobin 12.9 g/dl (14.0-18.0); Immature Granulocytes # (auto) 0.04 K/uL (0.00-0.02); Immature Granulocytes % (auto) 0.4 %; Lymphocytes # (auto) 1.25 K/uL (1.2-3.4); Lymphocytes % (auto) 11.1 %; Mean Corpuscular Hemoglobin 30.5 pg (25.0-34.0); Mean Corpuscular Hgb Conc 33.1 g/dL (32.0-36.0); Mean Corpuscular Volume 92.2 fL (80.0-100.0); Mean Platelet Volume 11.8 fL (9.4-12.4); Monocytes # (auto) 1.05 K/uL (0.24-0.82); Monocytes % (auto) 9.3 %; Neutrophils # (auto) 8.92 K/uL (1.4-6.5); Platelet Count 149 K/uL (130-400); RDW Coefficient of Variation 14.6 % (11.5-14.5); RDW Standard Deviation 49.3 fL (36.4-46.3); Red Blood Count 4.23 M/uL (4.63-6.08); White Blood Count 11.28 K/ul (4.8-10.8)
[2022-08-13 07:01] LABS: BUN Creatinine Ratio 13.7 (10-20); Calcium 8.8 mg/dl (8.5-10.1); Creatinine Clr Calc Pharmacy 64.5 ml/min; Est GFR (African American) 77.3 ml/min; Est GFR (Non-African American) 66.7 ml/min; Potassium 4.3 mmol/L (3.5-5.1)
--- NOTE | 2022-08-13 07:23 | CT Scan Report ---
CT head/brain wo con CLINICAL HISTORY: 86 years-old Male with sepsis confusion. Acute sepsis with altered mental status TECHNIQUE: Multiple axial CT images of the head were obtained without contrast. A dose lowering tech nique was utilized adhering to the principles of ALARA. CT DOSE: 614.27 mGy.cm COMPARISON: Head CT 05/07/2016 FINDINGS: No acute intracranial hemorrhage, midline shift, intracranial mass, hydrocephalus, territorial ischem ia or abnormal extra-axial collection. Age-related involutional changes. White matter hypodensities a re suggestive of chronic microvascular ischemic disease. 0.6 x 0.2 cm hyperdense focus involving the falx cerebri on image 24 series 2 appears unchanged from the prior study and may represent a small ve ssel. Cerebral vascular calcifications. The calvarium is intact. Mild mucosal thickening of the ethmoid and maxillary sinuses. Unremarkable soft tissues. Prior bilateral lens repair. Mastoid air cells are clear. IMPRESSION: No acute intracranial abnormality. ACT 112: Negative or not required by law. The above report was generated using voice recognition software. It may contain grammatical, syntax o r spelling errors. Electronically signed by: Ronny Mccormick M.D. 08/13/2022 7:21 AM
[2022-08-13 07:41] LABS: Estimated Average Glucose 163 mg/dl; Hemoglobin A1C 7.3 % (4.5-5.6)
[2022-08-13] MEDS: ACETAMINOPHEN 325 MG TAB PO PRN (07:41)
--- NOTE | 2022-08-13 08:06 | CT Scan Report ---
CT OF THE ABDOMEN AND PELVIS WITH CONTRAST CLINICAL HISTORY: sepsis, ?UTI COMPARISON STUDY: CT of the abdomen and pelvis March 19, 2019. TECHNIQUE: Following IV administration of 94 mL of Optiray, axial images of the abdomen and pelvis we re obtained from the lung bases to the proximal femurs. Images were reviewed in the axial, sagittal, and coronal planes. IV contrast was administered without complication. Automated exposure control wa s utilized for the study. A dose lowering technique was utilized adhering to the principles of ALARA . CT DOSE: 1211.01 mGy.cm FINDINGS: Several old left-sided rib fractures are noted. There is cardiomegaly with extensive mitral annular calcification. No pneumatosis, free air or portal venous gas is present. Hepatic steatosis i s noted. Spleen, adrenal glands and pancreas are unremarkable. Is no biliary or pancreatic ductal dil atation. There is no evidence for a bowel obstruction. Colonic diverticulosis is noted without eviden ce for acute diverticulitis. The prostate is enlarged, measuring 5.5 cm in transverse dimension. Blad quinten is distended. A small amount of gas within the bladder is noted. There is bladder wall thickening with moderate adjacent stranding. There is mild wall thickening and enhancement of the bilateral ure ters and renal pelves. There is no CT evidence for acute pyelonephritis. There is no renal abscess. N o urinary calculi identified. There is no lymphadenopathy. Mild aneurysmal dilatation of the abdomina l aorta measuring 3.2 cm is similar to prior CT. IMPRESSION: 1. Wall thickening of the bladder with adjacent infiltration consistent with cystitis. Small amount o f gas within the bladder which could be correlated with history of recent instrumentation. Enlarged p rostate. 2. Findings suggestive of bilateral pyelitis. No CT evidence for pyelonephritis. No hydronephrosis. N o renal abscess. 3. No significant change in mild aneurysmal dilatation of the abdominal aorta, measuring 3.2 cm. ACT 112: Negative or not required by law. Electronically signed by: Kurtis Contreras M.D. 08/13/2022 8:03 AM
[2022-08-13] MEDS: PIPERACILLIN/TAZOBACTAM 3.375 GM in DEXTROSE 5% 100 ML IV SCH ×2 (08:24→15:03)
[2022-08-13] MEDS: INSULIN ASPART PER UNIT SC SCH ×4 (08:24→21:00)
[2022-08-13] MEDS: METOPROLOL SUCC 50MG EXT REL TAB PO SCH (08:25)
[2022-08-13] MEDS: GABAPENTIN 600 MG TAB PO SCH ×3 (08:25→20:58)
[2022-08-13] MEDS: ATORVASTATIN 40 MG TAB PO SCH (08:25)
[2022-08-13] MEDS: FINASTERIDE 5 MG TAB PO SCH (08:26)
[2022-08-13] MEDS: MULTIVITAMIN TAB PO SCH (08:26)
[2022-08-13] MEDS: ASPIRIN 81 MG ECTAB PO SCH (08:26)
[2022-08-13] MEDS: PANTOprazole 40 MG TAB PO SCH (08:26)
[2022-08-13] MEDS ORDERED: ENOXAPARIN INJ 40 MG/0.4 ML SYR SQ SCH (09:00)
--- NOTE | 2022-08-13 14:43 | Hospitalist Progress Note ---
Date of Service August 13, 2022 Assessment & Plan (1) Urinary tract infection: (2) Cellulitis of left lower extremity: (3) Hematuria: (4) Sepsis: Plan This is an 86-year-old male with past medical history significant for hyperlipidemia, diabetes, idiopathic chronic gout, history of paroxysmal atrial fibrillation in the setting of severe sepsis, history of abdominal aortic aneurysm without rupture, history of CAD, status post RCA stent; history of nonmelanoma skin cancer, history of chronic kidney disease stage III, history of peripheral vascular disease presented to the ED with fever and generalized weakness. He had successfully undergone trial of void a day prior to prese ntation to the hospital by urology. On presentation to the ED, he was found to be febrile. Urinalysis showed signs of infection. CT abdomen and pelvis showed cystitis with bilateral pyelitis. Patient was admitted to telemetry floor for further care. Sepsis POA Cystitis with bilateral pyelitis History of urinary retention requiring Bañuelos placement ( last successful TOV is on 08/10/2022) Febrile, normotensive and saturating well in room air Leukocytosis present CT abdomen pelvis showing features of cystitis and bilateral pyelitis. No renal abscess or pyelonephritis. Urine culture gram-negative bacilli Blood culture pending Plan; Continue on Zosyn for now; await identification and sensitivity with urine culture. Also started on doxycycline for suspicion of pneumonia. Concern for left lower extremity cellulitis; continue on current antibiotics. Continue on IV fluids with NS at 50 cc/h Continue on Bañuelos for urine drainage; voiding trial prior to discharge. --We will follow-up on blood culture. Chronic conditions: History of diabetes: Hold metformin. Place on insulin sliding scale. Follow the blood sugars. History of coronary artery disease, status post stent: Continue aspirin, statin, and metoprolol succinate. History of paroxysmal atrial fibrillation when he had severe sepsis: Not on anticoagulation, on aspirin and metoprolol. History of hyperlipidemia: On statin. History of blood pressure: On metoprolol. We will monitor the blood pressure. History of gout: On allopurinol. History of gastroesophageal reflux disease: On omeprazole. Deep venous thrombosis prophylaxis: Placed on Lovenox. Discussed plan of care with his son at bedside. Answered questions. Admission and Anticipated Discharge Date Admission Date: August 12, 2022 Subjective Patient seen and examined at bedside. He was lying in the bed; looked tired. He was febrile to 38.2 C in the morning. Bañuelos was in place draining concentrated urine. Review of Systems Review of Systems: All systems reviewed & are unremarkable except as noted in Subjective Physical Exam Physical Exam: Constitutional: WD/WN, vitals as above, NAD, sitting up in bed, pleasant, conversing easily Respiratory: normal respiratory effort, lungs clear to auscultation, no wheeze, rales, rhonchi. Normal insp/exp effort, no accessory muscle use Cardiovascular: RRR, no murmur, no edema Vessels: no JVD or carotid bruit Chest: normal inspection of chest Abdomen: normal bowel sounds, soft, nontender, no hepatosplenomegaly. Bañuelos in place draining concentrated urine Musculoskeletal: no cyanosis or clubbing, extremities motor strength 5/5 Skin: no rashes, warm and dry normal turgor Neurologic: PERRL, EOMI, accommodation nl, no face palsy, no dysarthria CN's II- XI intact bilaterally and moves all extremities Psychiatric: A+Ox3, euthymic affect Lymphatic: no cervical or axillary lymphadenopathy : deferred Results & Data Results & Data ([facility]) Vital Signs (Past 12 Hours) Vital Signs Temp Pulse Pulse Resp BP Pulse Ox O2 Del Method 08/13/22 08:00 91 H 08/13/22 08:25 Room Air 08/13/22 07:32 38.2 C H 92 H 18 113/62 93 Nasal Cannula 08/13/22 04:05 37.6 C H 100 H 20 143/63 H 92 O2 Flow Rate 08/13/22 08:00 08/13/22 08:25 08/13/22 07:32 2 08/13/22 04:05 2 Laboratory Results Laboratory Results WBC 11.28 K/ul (4.8-10.8) H 08/13/22 05:23 RBC 4.23 M/uL (4.63-6.08) L 08/13/22 05:23 Hgb 12.9 g/dl (14.0-18.0) L 08/13/22 05:23 Hct 39.0 % (40.1-51.0) L 08/13/22 05:23 MCV 92.2 fL (80.0-100.0) 08/13/22 05:23 MCH 30.5 pg (25.0-34.0) 08/13/22 05: MCHC 33.1 g/dL (32.0-36.0) 08/13/22 05:23 RDW Std Deviation 49.3 fL (36.4-46.3) H 08/13/22 05: RDW Coeff of Sandie 14.6 % (11.5-14.5) H 08/13/22 05:23 Plt Count 149 K/uL (130-400) 08/13/22 05:23 MPV 11.8 fL (9.4-12.4) 08/13/22 05:23 Immature Gran % (Auto) 0.4 % 08/13/22 05:23 Neut % (Auto) 79.0 % 08/13/22 05:23 Lymph % (Auto) 11.1 % 08/13/22 05:23 [place] % (Auto) 9.3 % 08/13/22 05:23 Eos % (Auto) 0.0 % 08/13/22 05:23 Baso % (Auto) 0.2 % 08/13/22 05:23 Neut # (Auto) 8.92 K/uL (1.4-6.5) H 08/13/22 05:23 Lymph # (Auto) 1.25 K/uL (1.2-3.4) 08/13/22 05:23 [place] # (Auto) 1.05 K/uL (0.24-0.82) H 08/13/22 05:23 Eos # (Auto) 0.00 K/uL (0-0.50) 08/13/22 05:23 Baso # (Auto) 0.02 K/uL (0-0.2) 08/13/22 05:23 Immature Gran # (Auto) 0.04 K/uL (0.00-0.02) H 08/13/22 05:23 PT 11.6 Seconds (9.0-12.0) 08/12/22 18:40 INR 1.1 (0.9-1.1) 08/12/22 18:40 VBG pH 7.44 (7.36-7.41) H 08/12/22 19:05 VBG pCO2 39 mmHg (38-50) 08/12/22 19:05 VBG pO2 46 mmHg 08/12/22 19:05 VBG HCO3 27 mmol/L 08/12/22 19:05 VBG O2 Saturation 80.6 % 08/12/22 19:05 VBG Base Excess 2.3 mEq/L 08/12/22 19:05 Sodium 135 mmol/L (136-145) L 08/13/22 05:23 Potassium 4.3 mmol/L (3.5-5.1) 08/13/22 05:23 Chloride 101 mmol/L (98-107) 08/13/22 05:23 Carbon Dioxide 26 mmol/L (21-32) 08/13/22 05:23 Anion Gap 8 (3-11) 08/13/22 05:23 BUN 14 mg/dl (6-23) 08/13/22 05:23 Creatinine 1.02 mg/dl (0.6-1.4) 08/13/22 05:23 Est Cr Clr Drug Dosing 64.5 ml/min 08/13/22 05:23 Est GFR ( Amer) 77.3 ml/min 08/13/22 05:23 Est GFR (Non-Af Amer) 66.7 ml/min 08/13/22 05:23 BUN/Creatinine Ratio 13.7 (10-20) 08/13/22 05:23 Glucose 162 mg/dl (70-99(Fasting)) H 08/13/22 05:23 POC Glucose 125 mg/dl (70-99) H 08/13/22 11:44 Estimat Average Glucose 163 mg/dl 08/13/22 05:23 Hemoglobin A1c 7.3 % (4.5-5.6) H 08/13/22 05:23 Lactate 1.8 mmol/L (0.4-2.0) 08/12/22 20:41 Calcium 8.8 mg/dl (8.5-10.1) 08/13/22 05:23 Phosphorus 2.7 mg/dl (2.5-4.9) 08/12/22 18:40 Magnesium 2.0 mg/dl (1.7-2.4) 08/13/22 05:23 Total Bilirubin 1.0 mg/dl (0.2-1.0) 08/12/22 18:40 Direct Bilirubin 0.2 mg/dl (0-0.2) 08/12/22 20:13 AST 20 U/L (13-39) 08/12/22 20:13 ALT 27 U/L (7-52) 08/12/22 18:40 Alkaline Phosphatase 74 U/L (34-104) 08/12/22 18:40 Troponin I High Sens 18.8 pg/ml (0-20) 08/12/22 18:40 Total Protein 6.7 gm/dl (6.0-8.3) 08/12/22 18:40 Albumin 3.8 gm/dl (3.4-5.0) 08/12/22 18:40 Procalcitonin 0.10 ng/ml (0-0.5) 08/12/22 18:40 Urine Color Yellow 08/12/22 18:40 Urine Appearance Turbid (Clear) A 08/12/22 18:40 Urine pH 8.0 (4.5-7.5) H 08/12/22 18:40 Ur Specific [place] 1.017 (1.000-1.030) 08/12/22 18:40 Urine Protein 2+ (Negative) H 08/12/22 18:40 Urine Glucose (UA) Negative (Negative) 08/12/22 18:40 Urine Ketones Negative (Negative) 08/12/22 18:40 Urine Blood 3+ (Negative) H 08/12/22 18:40 Urine Nitrite Positive (Negative) A 08/12/22 18:40 Urine Bilirubin Negative (Negative) 08/12/22 18:40 Urine Urobilinogen Negative (Negative) 08/12/22 18:40 Ur Leukocyte Esterase 3+ (Negative) H 08/12/22 18:40 Urine WBC (Auto) >30 /hpf (0-5) H 08/12/22 18:40 Urine RBC (Auto) >30 /hpf (0-4) H 08/12/22 18:40 U Hyaline Cast (Auto) 1-5 /lpf (0-5) 08/12/22 18:40 U Epithel Cells (Auto) 10-20 /lpf (0-5) H 08/12/22 18:40 Urine Bacteria (Auto) 4+ (Negative) H 08/12/22 18:40 Urine Crystals Not Reportable 08/12/22 18:40 Impressions Chest X-Ray 08/12/22 18:41 XR chest 1V portable CLINICAL HISTORY: Sepsis TECHNIQUE: Single frontal radiograph of the chest was obtained. Comparison: Comparison is made to chest radiograph 07/18/2022 FINDINGS: No lines and tubes are seen. Cardiomegaly is noted. Airspace opacity is seen in the left lung. There is mild prominence of the pulmonary vasculature. No evidence of pleural effusion or pneumothorax. IMPRESSION: 1. Airspace opacity in the left lung which may represent atelectasis, pneumonia, and/or aspiration. 2. Cardiomegaly and mild pulmonary edema. ACT 112: Negative or not required by law. Electronically signed by: Travis Perry M.D. 08/12/2022 7:41 PM Abdomen/Pelvis CT 08/12/22 18:42 CT OF THE ABDOMEN AND PELVIS WITH CONTRAST CLINICAL HISTORY: sepsis, ?UTI COMPARISON STUDY: CT of the abdomen and pelvis March 19, 2019. TECHNIQUE: Following IV administration of 94 mL of Optiray, axial images of the abdomen and pelvis were obtained from the lung bases to the proximal femurs. Images were reviewed in the axial, sagittal, and coronal planes. IV contrast was administered without complication. Automated exposure control was utilized for the study. A dose lowering technique was utilized adhering to the principles of ALARA. CT DOSE: 1211.01 mGy.cm FINDINGS: Several old left-sided rib fractures are noted. There is cardiomegaly with extensive mitral annular calcification. No pneumatosis, free air or portal venous gas is present. Hepatic steatosis is noted. Spleen, adrenal glands and pancreas are unremarkable. Is no biliary or pancreatic ductal dilatation. There is no evidence for a bowel obstruction. Colonic diverticulosis is noted without evidence for acute diverticulitis. The prostate is enlarged, measuring 5.5 cm in transverse dimension. Bladder is distended. A small amount of gas within the bladder is noted. There is bladder wall thickening with moderate adjacent stranding. There is mild wall thickening and enhancement of the bilateral ureters and renal pelves. There is no CT evidence for acute pyelonephritis. There is no renal abscess. No urinary calculi identified. There is no lymphadenopathy. Mild aneurysmal dilatation of the abdominal aorta measuring 3.2 cm is similar to prior CT. IMPRESSION: 1. Wall thickening of the bladder with adjacent infiltration consistent with cystitis. Small amount of gas within the bladder which could be correlated with history of recent instrumentation. Enlarged prostate. 2. Findings suggestive of bilateral pyelitis. No CT evidence for pyelonephritis. No hydronephrosis. No renal abscess. 3. No significant change in mild aneurysmal dilatation of the abdominal aorta, measuring 3.2 cm. ACT 112: Negative or not required by law. Electronically signed by: Kurtis Contreras M.D. 08/13/2022 8:[address] 08/12/22 18:45 CT head/brain wo con CLINICAL HISTORY: 86 years-old Male with sepsis confusion. Acute sepsis with al tered mental status TECHNIQUE: Multiple axial CT images of the head were obtained without contrast. A dose lowering technique was utilized adhering to the principles of ALARA. CT DOSE: 614.27 mGy.cm COMPARISON: Head CT 05/07/2016 FINDINGS: No acute intracranial hemorrhage, midline shift, intracranial mass, hydrocephalus, territorial ischemia or abnormal extra-axial collection. Age-rel ated involutional changes. White matter hypodensities are suggestive of chronic microvascular ischemic disease. 0.6 x 0.2 cm hyperdense focus involving the falx cerebri on image 24 series 2 appears unchanged from the prior study and may represent a small vessel. Cerebral vascular calcifications. The calvarium is intact. Mild mucosal thickening of the ethmoid and maxillary sinuses. Unremarkable soft tissues. Prior bilateral lens repair. Mastoid air cells are clear. IMPRESSION: No acute intracranial abnormality. ACT 112: Negative or not required by law. The above report was generated using voice recognition software. It may contain grammatical, syntax or spelling errors. Electronically signed by: Ronny Mccormick M.D. 08/13/2022 7:21 AM
--- NOTE | 2022-08-13 15:17 | Electrocardiogram Report ---
Test Reason : Blood Pressure : / mmHG Vent. Rate : 084 BPM Atrial Rate : 084 BPM P-R Int : 158 ms QRS Dur : 084 ms QT Int : 378 ms P-R-T Axes : 020 107 035 degrees QTc Int : 446 ms Poor data quality, interpretation may be adversely affected Normal sinus rhythm Nonspecific ST and T wave abnormality Abnormal ECG When compared with ECG of 18-JUL-2022 02:34, Nonspecific T wave abnormality has replaced inverted T waves in Inferior leads Confirmed by Blaise Lincoln ([id number]) on 08/13/2022 3:17:29 PM Referred By: REFERRED SELF Confirmed By:Blaise Lincoln
[2022-08-13] MEDS: allopurinoL 300 MG TAB PO SCH ×2 (20:57→21:02)
[2022-08-13] MEDS: TAMSULOSIN HCL 0.4 MG CAP PO SCH (20:57)
[2022-08-14] MEDS: PIPERACILLIN/TAZOBACTAM 3.375 GM in DEXTROSE 5% 100 ML IV SCH ×3 (00:01→15:09)
[2022-08-14 07:05] LABS: Basophils # (auto) 0.03 K/uL (0-0.2); Basophils % (auto) 0.3 %; Eosinophils # (auto) 0.07 K/uL (0-0.50); Eosinophils % (auto) 0.8 %; Hematocrit (blood only) 39.8 % (40.1-51.0); Hemoglobin 13.1 g/dl (14.0-18.0); Immature Granulocytes # (auto) 0.02 K/uL (0.00-0.02); Immature Granulocytes % (auto) 0.2 %; Lymphocytes # (auto) 1.54 K/uL (1.2-3.4); Lymphocytes % (auto) 17.4 %; Mean Corpuscular Hemoglobin 30.4 pg (25.0-34.0); Mean Corpuscular Hgb Conc 32.9 g/dL (32.0-36.0); Mean Corpuscular Volume 92.3 fL (80.0-100.0); Mean Platelet Volume 11.9 fL (9.4-12.4); Monocytes # (auto) 0.91 K/uL (0.24-0.82); Monocytes % (auto) 10.3 %; Neutrophils # (auto) 6.29 K/uL (1.4-6.5); Platelet Count 133 K/uL (130-400); Platelet Estimate Decreased (Normal); RDW Coefficient of Variation 14.6 % (11.5-14.5); RDW Standard Deviation 50.3 fL (36.4-46.3); Red Blood Count 4.31 M/uL (4.63-6.08); White Blood Count 8.86 K/ul (4.8-10.8)
[2022-08-14 07:34] LABS: BUN Creatinine Ratio 11.2 (10-20); Calcium 8.9 mg/dl (8.5-10.1); Creatinine Clr Calc Pharmacy 61.3 ml/min
[2022-08-14] MEDS: ACETAMINOPHEN 325 MG TAB PO PRN ×2 (07:50→12:46)
[2022-08-14] MEDS: METOPROLOL SUCC 50MG EXT REL TAB PO SCH (07:51)
[2022-08-14] MEDS: MULTIVITAMIN TAB PO SCH (07:51)
[2022-08-14] MEDS: FINASTERIDE 5 MG TAB PO SCH (07:51)
[2022-08-14] MEDS: GABAPENTIN 600 MG TAB PO SCH ×3 (07:52→20:11)
[2022-08-14] MEDS: ASPIRIN 81 MG ECTAB PO SCH (07:52)
[2022-08-14] MEDS: PANTOprazole 40 MG TAB PO SCH (07:52)
[2022-08-14] MEDS: ATORVASTATIN 40 MG TAB PO SCH (07:52)
[2022-08-14] MEDS: INSULIN ASPART PER UNIT SC SCH ×4 (08:46→22:14)
[2022-08-14] MEDS: DOXYCYCLINE HYCLATE 100 MG CAP PO SCH ×2 (08:48→20:11)
--- NOTE | 2022-08-14 09:57 | Urology Progress Note ---
Date of Service August 14, 2022 Assessment & Plan (1) Urinary tract infection: (2) Sepsis: (3) Urinary retention: Plan Urinary retention with UTI/sepsis Gram-negative bacilli growing but no speciation or sensitivities yet Maintain Bañuelos catheter - no acute interventions appropriate Think would be most prudent to keep the Bañuelos catheter in until he is evaluated as an outpatient and likely consider surgical intervention to try to alleviate his retentionotherwise his risk of recurrent infection and sepsis remains quite high Will need an extended course of abx (14 days minimum) We will follow from a distance, but please call if further acute issues arise Admission and Anticipated Discharge Date Admission Date: August 12, 2022 Subjective Subjectively seems to be doing okayhe denies any real complaints but he remains febrile Confused, not the greatest historian Does not remember some of the events prior to his hospitalization Physical Exam Physical Exam: Catheter draining clear urine Abdomen soft, nontender Results & Data ([facility]) Vital Signs (Past 12 Hours) Vital Signs Temp Pulse Pulse Resp BP BP Pulse Ox 08/14/22 08:00 08/14/22 07:45 38.7 C H 75 18 158/76 H 93 08/14/22 07:16 76 08/14/22 04:00 37.1 C 64 18 126/68 94 08/13/22 22:20 67 08/13/22 23:00 37.2 C 71 16 116/57 L 91 O2 Del Method O2 Flow Rate 08/14/22 08:00 Nasal Cannula 2 08/14/22 07:45 Nasal Cannula 2 08/14/22 07:16 08/14/22 04:00 Nasal Cannula 1.5 08/13/22 22:20 08/13/22 23:00 Nasal Cannula 1.5 PG Care Time/CCT Total # of Minutes Spent Total Time Spent with Patient: Total time spent is greater than 50% in coordination of care (as documented) at patient's floor/unit and/or counseling patient: Coding Level of Care Code 22982 Subseq Hosp Care Lvl 2 Diagnoses Urinary tract infection N39.0 Sepsis A41.9 Urinary retention R33.9
--- NOTE | 2022-08-14 13:36 | Hospitalist Progress Note ---
Date of Service August 14, 2022 Assessment & Plan (1) Urinary tract infection: (2) Cellulitis of left lower extremity: (3) Hematuria: (4) Sepsis: Plan This is an 86-year-old male with past medical history significant for hyperlipidemia, diabetes, idiopathic chronic gout, history of paroxysmal atrial fibrillation in the setting of severe sepsis, history of abdominal aortic aneurysm without rupture, history of CAD, status post RCA stent; history of nonmelanoma skin cancer, history of chronic kidney disease stage III, history of peripheral vascular disease presented to the ED with fever and generalized weakness. He had successfully undergone trial of void a day prior to prese ntation to the hospital by urology. On presentation to the ED, he was found to be febrile. Urinalysis showed signs of infection. CT abdomen and pelvis showed cystitis with bilateral pyelitis. Patient was admitted to telemetry floor for further care. Sepsis POA Cystitis with bilateral pyelitis 2/2 [place] History of urinary retention requiring Bañuelos placement ( last successful TOV is on 08/10/2022) Febrile, normotensive and saturating well in room air Leukocytosis present CT abdomen pelvis showing features of cystitis and bilateral pyelitis. No renal abscess or pyelonephritis. Urine culture-Serratia Marcescens; sensitive to zosyn Blood culture pending Plan; Continue on Zosyn for now as it is sensitive to. Serratia. Plan to give antibiotics for UTI for total of 14 days. Also on doxycycline for suspicion of pneumonia. Concern for left lower extremity cellulitis; continue on current antibiotics. Increase IV fluids 100 cc/h. Continue on Bañuelos for urine drainage; Plan to discharge with Bañuelos as per urology recommendation -- Obtain blood culture today; will follow results. Chronic conditions: History of diabetes: Hold metformin. Place on insulin sliding scale. Follow the blood sugars. History of coronary artery disease, status post stent: Continue aspirin, statin, and metoprolol succinate. History of paroxysmal atrial fibrillation when he had severe sepsis: Not on anticoagulation, on aspirin and metoprolol. History of hyperlipidemia: On statin. History of blood pressure: On metoprolol. We will monitor the blood pressure. History of gout: On allopurinol. History of gastroesophageal reflux disease: On omeprazole. Deep venous thrombosis prophylaxis: Placed on Lovenox. Discussed plan of care with his son at bedside on 08/13. Answered questions. Admission and Anticipated Discharge Date Admission Date: August 12, 2022 Subjective Patient seen and examined at bedside. Continues to be febrile. He is awake; not in any distress. Bañuelos is in place draining concentrated urine. Review of Systems Review of Systems: All systems reviewed & are unremarkable except as noted in Subjective Physical Exam Physical Exam: Constitutional: Awake, alert orient x3; not in any distress. Respiratory: normal respiratory effort, lungs clear to auscultation, no wheeze, rales, rhonchi. Normal insp/exp effort, no accessory muscle use Cardiovascular: RRR, no murmur, no edema Vessels: no JVD or carotid bruit Chest: normal inspection of chest Abdomen: normal bowel sounds, soft, nontender, no hepatosplenomegaly. Bañuelos in place draining concentrated urine Musculoskeletal: no cyanosis or clubbing, extremities motor strength 5/5 Skin: no rashes, warm and dry normal turgor Neurologic: PERRL, EOMI, accommodation nl, no face palsy, no dysarthria CN's II- XI intact bilaterally and moves all extremities Psychiatric: A+Ox3, euthymic affect Lymphatic: no cervical or axillary lymphadenopathy : deferred Results & Data Results & Data ([facility]) Vital Signs (Past 12 Hours) Vital Signs Temp Pulse Pulse Resp BP Pulse Ox O2 Del Method 08/14/22 12:45 37.8 C H 70 20 144/71 H 96 Nasal Cannula 08/14/22 10:18 37.8 C H 08/14/22 08:00 Nasal Cannula 08/14/22 07:45 38.7 C H 75 18 158/76 H 93 Nasal Cannula 08/14/22 07:16 76 08/14/22 04:00 37.1 C 64 18 126/68 94 Nasal Cannula O2 Flow Rate 08/14/22 12:45 1 08/14/22 10:18 08/14/22 08:00 2 08/14/22 07:45 2 08/14/22 07:16 08/14/22 04:00 1.5 Laboratory Results Laboratory Results WBC 8.86 K/ul (4.8-10.8) 08/14/22 05:54 RBC 4.31 M/uL (4.63-6.08) L 08/14/22 05:54 Hgb 13.1 g/dl (14.0-18.0) L 08/14/22 05:54 Hct 39.8 % (40.1-51.0) L 08/14/22 05:54 MCV 92.3 fL (80.0-100.0) 08/14/22 05:54 MCH 30.4 pg (25.0-34.0) 08/14/22 05:54 MCHC 32.9 g/dL (32.0-36.0) 08/14/22 05:54 RDW Std Deviation 50.3 fL (36.4-46.3) H 08/14/22 05:54 RDW Coeff of Sandie 14.6 % (11.5-14.5) H 08/14/22 05:54 Plt Count 133 K/uL (130-400) 08/14/22 05:54 MPV 11.9 fL (9.4-12.4) 08/14/22 05:54 Immature Gran % (Auto) 0.2 % 08/14/22 05:54 Neut % (Auto) 71.0 % 08/14/22 05:54 Lymph % (Auto) 17.4 % 08/14/22 05:54 [place] % (Auto) 10.3 % 08/14/22 05:54 Eos % (Auto) 0.8 % 08/14/22 05:54 Baso % (Auto) 0.3 % 08/14/22 05:54 Neut # (Auto) 6.29 K/uL (1.4-6.5) 08/14/22 05:54 Lymph # (Auto) 1.54 K/uL (1.2-3.4) 08/14/22 05:54 [place] # (Auto) 0.91 K/uL (0.24-0.82) H 08/14/22 05:54 Eos # (Auto) 0.07 K/uL (0-0.50) 08/14/22 05:54 Baso # (Auto) 0.03 K/uL (0-0.2) 08/14/22 05:54 Immature Gran # (Auto) 0.02 K/uL (0.00-0.02) 08/14/22 05:54 Platelet Estimate Decreased (Normal) L 08/14/22 05:54 PT 11.6 Seconds (9.0-12.0) 08/12/22 18:40 INR 1.1 (0.9-1.1) 08/12/22 18:40 VBG pH 7.44 (7.36-7.41) H 08/12/22 19:05 VBG pCO2 39 mmHg (38-50) 08/12/22 19:05 VBG pO2 46 mmHg 08/12/22 19:05 VBG HCO3 27 mmol/L 08/12/22 19:05 VBG O2 Saturation 80.6 % 08/12/22 19:05 VBG Base Excess 2.3 mEq/L 08/12/22 19:05 Sodium 136 mmol/L (136-145) 08/14/22 05:54 Potassium 4.0 mmol/L (3.5-5.1) 08/14/22 05:54 Chloride 101 mmol/L (98-107) 08/14/22 05:54 Carbon Dioxide 28 mmol/L (21-32) 08/14/22 05:54 Anion Gap 7 (3-11) 08/14/22 05:54 BUN 12 mg/dl (6-23) 08/14/22 05:54 Creatinine 1.07 mg/dl (0.6-1.4) 08/14/22 05:54 Est Cr Clr Drug Dosing 61.3 ml/min 08/14/22 05:54 Est GFR ( Amer) 73.0 ml/min 08/14/22 05:54 Est GFR (Non-Af Amer) 63.0 ml/min 08/14/22 05:54 BUN/Creatinine Ratio 11.2 (10-20) 08/14/22 05:54 Glucose 114 mg/dl (70-99(Fasting)) H 08/14/22 05:54 POC Glucose 127 mg/dl (70-99) H 08/14/22 12:00 Estimat Average Glucose 163 mg/dl 08/13/22 05:23 Hemoglobin A1c 7.3 % (4.5-5.6) H 08/13/22 05:23 Lactate 1.8 mmol/L (0.4-2.0) 08/12/22 20:41 Calcium 8.9 mg/dl (8.5-10.1) 08/14/22 05:54 Phosphorus 2.7 mg/dl (2.5-4.9) 08/12/22 18:40 Magnesium 2.0 mg/dl (1.7-2.4) 08/13/22 05:23 Total Bilirubin 1.0 mg/dl (0.2-1.0) 08/12/22 18:40 Direct Bilirubin 0.2 mg/dl (0-0.2) 08/12/22 20:13 AST 20 U/L (13-39) 08/12/22 20:13 ALT 27 U/L (7-52) 08/12/22 18:40 Alkaline Phosphatase 74 U/L (34-104) 08/12/22 18:40 Troponin I High Sens 18.8 pg/ml (0-20) 08/12/22 18:40 Total Protein 6.7 gm/dl (6.0-8.3) 08/12/22 18:40 Albumin 3.8 gm/dl (3.4-5.0) 08/12/22 18:40 Procalcitonin 0.10 ng/ml (0-0.5) 08/12/22 18:40 Urine Color Yellow 08/12/22 18:40 Urine Appearance Turbid (Clear) A 08/12/22 18:40 Urine pH 8.0 (4.5-7.5) H 08/12/22 18:40 Ur Specific [place] 1.017 (1.000-1.030) 08/12/22 18:40 Urine Protein 2+ (Negative) H 08/12/22 18:40 Urine Glucose (UA) Negative (Negative) 08/12/22 18:40 Urine Ketones Negative (Negative) 08/12/22 18:40 Urine Blood 3+ (Negative) H 08/12/22 18:40 Urine Nitrite Positive (Negative) A 08/12/22 18:40 Urine Bilirubin Negative (Negative) 08/12/22 18:40 Urine Urobilinogen Negative (Negative) 08/12/22 18:40 Ur Leukocyte Esterase 3+ (Negative) H 08/12/22 18:40 Urine WBC (Auto) >30 /hpf (0-5) H 08/12/22 18:40 Urine RBC (Auto) >30 /hpf (0-4) H 08/12/22 18:40 U Hyaline Cast (Auto) 1-5 /lpf (0-5) 10/13/22 18:40 U Epithel Cells (Auto) 10-20 /lpf (0-5) H 08/12/22 18:40 Urine Bacteria (Auto) 4+ (Negative) H 08/12/22 18:40 Urine Crystals Not Reportable 08/12/22 18:40 Impressions Chest X-Ray 08/12/22 18:41 XR chest 1V portable CLINICAL HISTORY: Sepsis TECHNIQUE: Single frontal radiograph of the chest was obtained. Comparison: Comparison is made to chest radiograph 07/18/2022 FINDINGS: No lines and tubes are seen. Cardiomegaly is noted. Airspace opacity is seen in the left lung. There is mild prominence of the pulmonary vasculature. No evidence of pleural effusion or pneumothorax. IMPRESSION: 1. Airspace opacity in the left lung which may represent atelectasis, pneumonia, and/or aspiration. 2. Cardiomegaly and mild pulmonary edema. ACT 112: Negative or not required by law. Electronically signed by: Travis Perry M.D. 08/12/2022 7:41 PM Abdomen/Pelvis CT 08/12/22 18:42 CT OF THE ABDOMEN AND PELVIS WITH CONTRAST CLINICAL HISTORY: sepsis, ?UTI COMPARISON STUDY: CT of the abdomen and pelvis March 19, 2019. TECHNIQUE: Following IV administration of 94 mL of Optiray, axial images of the abdomen and pelvis were obtained from the lung bases to the proximal femurs. Images were reviewed in the axial, sagittal, and coronal planes. IV contrast was administered without complication. Automated exposure control was utilized for the study. A dose lowering technique was utilized adhering to the principles of ALARA. CT DOSE: 1211.01 mGy.cm FINDINGS: Several old left-sided rib fractures are noted. There is cardiomegaly with extensive mitral annular calcification. No pneumatosis, free air or portal venous gas is present. Hepatic steatosis is noted. Spleen, adrenal glands and pancreas are unremarkable. Is no biliary or pancreatic ductal dilatation. There is no evidence for a bowel obstruction. Colonic diverticulosis is noted without evidence for acute diverticulitis. The prostate is enlarged, measuring 5.5 cm in transverse dimension. Bladder is distended. A small amount of gas within the bladder is noted. There is bladder wall thickening with moderate adjacent stranding. There is mild wall thickening and enhancement of the bilateral ureters and renal pelves. There is no CT evidence for acute pyelonephritis. There is no renal abscess. No urinary calculi identified. There is no lymphadenopathy. Mild aneurysmal dilatation of the abdominal aorta measuring 3.2 cm is similar to prior CT. IMPRESSION: 1. Wall thickening of the bladder with adjacent infiltration consistent with cystitis. Small amount of gas within the bladder which could be correlated with history of recent instrumentation. Enlarged prostate. 2. Findings suggestive of bilateral pyelitis. No CT evidence for pyelonephritis. No hydronephrosis. No renal abscess. 3. No significant change in mild aneurysmal dilatation of the abdominal aorta, measuring 3.2 cm. ACT 112: Negative or not required by law. Electronically signed by: Kurtis Contreras M.D. 08/13/2022 8:[address] 08/12/22 18:45 CT head/brain wo con CLINICAL HISTORY: 86 years-old Male with sepsis confusion. Acute sepsis with altered mental status TECHNIQUE: Multiple axial CT images of the head were obtained without contrast. A dose lowering technique was utilized adhering to the principles of ALARA. CT DOSE: 614.27 mGy.cm COMPARISON: Head CT 05/07/2016 FINDINGS: No acute intracranial hemorrhage, midline shift, intracranial mass, hydrocephalus, territorial ischemia or abnormal extra-axial collection. Age- related involutional changes. White matter hypodensities are suggestive of chronic microvascular ischemic disease. 0.6 x 0.2 cm hyperdense focus involving the falx cerebri on image 24 series 2 appears unchanged from the prior study and may represent a small vessel. Cerebral vascular calcifications. The calvarium is intact. Mild mucosal thickening of the ethmoid and maxillary sinuses. Unremarkable soft tissues. Prior bilateral lens repair. Mastoid air cells are clear. IMPRESSION: No acute intracranial abnormality. ACT 112: Negative or not required by law. The above report was generated using voice recognition software. It may contain grammatical, syntax or spelling errors. Electronically signed by: Ronny Mccormick M.D. 08/13/2022 7:21 AM
[2022-08-14] MEDS: TAMSULOSIN HCL 0.4 MG CAP PO SCH (20:11)
[2022-08-14] MEDS: allopurinoL 300 MG TAB PO SCH (20:12)
[2022-08-15] MEDS: PIPERACILLIN/TAZOBACTAM 3.375 GM in DEXTROSE 5% 100 ML IV SCH ×4 (00:03→23:01)
[2022-08-15] MEDS: ACETAMINOPHEN 325 MG TAB PO PRN ×2 (03:02→14:29)
[2022-08-15 06:00] LABS: Basophils # (auto) 0.02 K/uL (0-0.2); Basophils % (auto) 0.3 %; Eosinophils # (auto) 0.04 K/uL (0-0.50); Eosinophils % (auto) 0.6 %; Hematocrit (blood only) 37.8 % (40.1-51.0); Immature Granulocytes # (auto) 0.03 K/uL (0.00-0.02); Immature Granulocytes % (auto) 0.5 %; Lymphocytes % (auto) 21.4 %; Mean Corpuscular Hemoglobin 30.7 pg (25.0-34.0); Mean Corpuscular Hgb Conc 34.4 g/dL (32.0-36.0); Mean Corpuscular Volume 89.2 fL (80.0-100.0); Mean Platelet Volume 11.5 fL (9.4-12.4); Monocytes # (auto) 0.83 K/uL (0.24-0.82); Monocytes % (auto) 12.7 %; Neutrophils # (auto) 4.22 K/uL (1.4-6.5); Neutrophils % (auto) 64.5 %; Platelet Count 142 K/uL (130-400); RDW Coefficient of Variation 14.4 % (11.5-14.5); Red Blood Count 4.24 M/uL (4.63-6.08); White Blood Count 6.54 K/ul (4.8-10.8)
[2022-08-15 06:32] LABS: BUN Creatinine Ratio 10.1 (10-20); Calcium 8.9 mg/dl (8.5-10.1); Est GFR (African American) 80.2 ml/min; Est GFR (Non-African American) 69.2 ml/min; Potassium 3.8 mmol/L (3.5-5.1)
[2022-08-15] MEDS: INSULIN ASPART PER UNIT SC SCH ×4 (08:22→21:02)
[2022-08-15] MEDS: PANTOprazole 40 MG TAB PO SCH (08:28)
[2022-08-15] MEDS: GABAPENTIN 600 MG TAB PO SCH ×3 (08:28→20:47)
[2022-08-15] MEDS: ASPIRIN 81 MG ECTAB PO SCH (08:28)
[2022-08-15] MEDS: METOPROLOL SUCC 50MG EXT REL TAB PO SCH (08:28)
[2022-08-15] MEDS: FINASTERIDE 5 MG TAB PO SCH (08:28)
[2022-08-15] MEDS: MULTIVITAMIN TAB PO SCH (08:28)
[2022-08-15] MEDS: DOXYCYCLINE HYCLATE 100 MG CAP PO SCH ×2 (08:28→20:48)
[2022-08-15] MEDS: ATORVASTATIN 40 MG TAB PO SCH (08:28)
--- NOTE | 2022-08-15 14:52 | Hospitalist Progress Note ---
Date of Service August 15, 2022 Assessment & Plan (1) Urinary tract infection: (2) Cellulitis of left lower extremity: (3) Hematuria: (4) Sepsis: Plan This is an 86-year-old male with past medical history significant for hyperlipidemia, diabetes, idiopathic chronic gout, history of paroxysmal atrial fibrillation in the setting of severe sepsis, history of abdominal aortic aneurysm without rupture, history of CAD, status post RCA stent; history of nonmelanoma skin cancer, history of chronic kidney disease stage III, history of peripheral vascular disease presented to the ED with fever and generalized weakness. He had successfully undergone trial of void a day prior to prese ntation to the hospital by urology. On presentation to the ED, he was found to be febrile. Urinalysis showed signs of infection. CT abdomen and pelvis showed cystitis with bilateral pyelitis. Patient was admitted to telemetry floor for further care. Sepsis POA Cystitis with bilateral pyelitis 2/2 [place] History of urinary retention requiring Bañuelos placement ( last successful TOV is on 08/10/2022) Afebrile in last 24-hour, normotensive and saturating well in room air Leukocytosis resolved CT abdomen pelvis showing features of cystitis and bilateral pyelitis. No renal abscess or pyelonephritis. Urine culture-Serratia Marcescens; sensitive to zosyn Blood culture no growth till date Plan; Continue on Zosyn for now as it is sensitive to. Serratia. Plan to give antibiotics for UTI for total of 14 days. Also on doxycycline for suspicion of pneumonia. Concern for left lower extremity cellulitis; continue on current antibiotics. Continue on Bañuelos for urine drainage; Plan to discharge with Bañuelos as per urology recommendation Chronic conditions: History of diabetes: Hold metformin. Place on insulin sliding scale. Follow the blood sugars. History of coronary artery disease, status post stent: Continue aspirin, statin, and metoprolol succinate. History of paroxysmal atrial fibrillation when he had severe sepsis: Not on anticoagulation, on aspirin and metoprolol. History of hyperlipidemia: On statin. History of blood pressure: On metoprolol. We will monitor the blood pressure. History of gout: On allopurinol. History of gastroesophageal reflux disease: On omeprazole. Deep venous thrombosis prophylaxis: Placed on Lovenox. Discussed plan of care with at bedside. Admission and Anticipated Discharge Date Admission Date: August 12, 2022 Subjective Patient seen and examined at bedside. He continues to have chills; no documented fever. Bañuelos in place draining clear urine. Review of Systems Review of Systems: All systems reviewed & are unremarkable except as noted in Subjective Physical Exam Physical Exam: Constitutional: Awake, alert orient x3; not in any distress. Respiratory: normal respiratory effort, lungs clear to auscultation, no wheeze, rales, rhonchi. Normal insp/exp effort, no accessory muscle use Cardiovascular: RRR, no murmur, no edema Vessels: no JVD or carotid bruit Chest: normal inspection of chest Abdomen: normal bowel sounds, soft, nontender, no hepatosplenomegaly. Bañuelos in place draining clear urine Musculoskeletal: no cyanosis or clubbing, extremities motor strength 5/5 Skin: no rashes, warm and dry normal turgor Neurologic: PERRL, EOMI, accommodation nl, no face palsy, no dysarthria CN's II- XI intact bilaterally and moves all extremities Psychiatric: A+Ox3, euthymic affect Lymphatic: no cervical or axillary lymphadenopathy : deferred Results & Data Results & Data ([facility]) Vital Signs (Past 12 Hours) Vital Signs Temp Pulse Pulse Resp BP Pulse Ox O2 Del Method 08/15/22 08:36 36.8 C 66 18 144/73 H 95 Nasal Cannula 08/15/22 08:00 Nasal Cannula 08/15/22 07:33 56 L O2 Flow Rate 08/15/22 08:36 2 08/15/22 08:00 2 08/15/22 07:33 Laboratory Results Laboratory Results WBC 6.54 K/ul (4.8-10.8) 08/15/22 05:47 RBC 4.24 M/uL (4.63-6.08) L 08/15/22 05:47 Hgb 13.0 g/dl (14.0-18.0) L 08/15/22 05:47 Hct 37.8 % (40.1-51.0) L 08/15/22 05:47 MCV 89.2 fL (80.0-100.0) 08/15/22 05:47 MCH 30.7 pg (25.0-34.0) 08/15/22 05:47 MCHC 34.4 g/dL (32.0-36.0) 08/15/22 05:47 RDW Std Deviation 47.0 fL (36.4-46.3) H 08/15/22 05:47 RDW Coeff of Sandie 14.4 % (11.5-14.5) 08/15/22 05:47 Plt Count 142 K/uL (130-400) 08/15/22 05:47 MPV 11.5 fL (9.4-12.4) 08/15/22 05:47 Immature Gran % (Auto) 0.5 % 08/15/22 05:47 Neut % (Auto) 64.5 % 08/15/22 05:47 Lymph % (Auto) 21.4 % 08/15/22 05:47 [place] % (Auto) 12.7 % 08/15/22 05:47 Eos % (Auto) 0.6 % 08/15/22 05:47 Baso % (Auto) 0.3 % 08/15/22 05:47 Neut # (Auto) 4.22 K/uL (1.4-6.5) 08/15/22 05:47 Lymph # (Auto) 1.40 K/uL (1.2-3.4) 08/15/22 05:47 [place] # (Auto) 0.83 K/uL (0.24-0.82) H 08/15/22 05:47 Eos # (Auto) 0.04 K/uL (0-0.50) 08/15/22 05:47 Baso # (Auto) 0.02 K/uL (0-0.2) 08/15/22 05:47 Immature Gran # (Auto) 0.03 K/uL (0.00-0.02) H 08/15/22 05:47 Platelet Estimate Decreased (Normal) L 08/14/22 05:54 PT 11.6 Seconds (9.0-12.0) 08/12/22 18:40 INR 1.1 (0.9-1.1) 08/12/22 18:40 VBG pH 7.44 (7.36-7.41) H 08/12/22 19:05 VBG pCO2 39 mmHg (38-50) 08/12/22 19:05 VBG pO2 46 mmHg 08/12/22 19:05 VBG HCO3 27 mmol/L 08/12/22 19:05 VBG O2 Saturation 80.6 % 08/12/22 19:05 VBG Base Excess 2.3 mEq/L 08/12/22 19:05 Sodium 137 mmol/L (136-145) 08/15/22 05:47 Potassium 3.8 mmol/L (3.5-5.1) 08/15/22 05:47 Chloride 104 mmol/L (98-107) 08/15/22 05:47 Carbon Dioxide 27 mmol/L (21-32) 08/15/22 05:47 Anion Gap 6 (3-11) 08/15/22 05:47 BUN 10 mg/dl (6-23) 08/15/22 05:47 Creatinine 0.99 mg/dl (0.6-1.4) 08/15/22 05:47 Est Cr Clr Drug Dosing 66.0 ml/min 08/15/22 05:47 Est GFR ( Amer) 80.2 ml/min 08/15/22 05:47 Est GFR (Non-Af Amer) 69.2 ml/min 08/15/22 05:47 BUN/Creatinine Ratio 10.1 (10-20) 08/15/22 05:47 Glucose 135 mg/dl (70-99(Fasting)) H 08/15/22 05:47 POC Glucose 145 mg/dl (70-99) H 08/15/22 11:37 Estimat Average Glucose 163 mg/dl 08/13/22 05:23 Hemoglobin A1c 7.3 % (4.5-5.6) H 08/13/22 05:23 Lactate 1.8 mmol/L (0.4-2.0) 08/12/22 20:41 Calcium 8.9 mg/dl (8.5-10.1) 08/15/22 05:47 Phosphorus 2.7 mg/dl (2.5-4.9) 08/12/22 18:40 Magnesium 2.0 mg/dl (1.7-2.4) 08/13/22 05:23 Total Bilirubin 1.0 mg/dl (0.2-1.0) 08/12/22 18:40 Direct Bilirubin 0.2 mg/dl (0-0.2) 08/12/22 20:13 AST 20 U/L (13-39) 08/12/22 20:13 ALT 27 U/L (7-52) 08/12/22 18:40 Alkaline Phosphatase 74 U/L (34-104) 08/12/22 18:40 Troponin I High Sens 18.8 pg/ml (0-20) 08/12/22 18:40 Total Protein 6.7 gm/dl (6.0-8.3) 08/12/22 18:40 Albumin 3.8 gm/dl (3.4-5.0) 08/12/22 18:40 Procalcitonin 0.10 ng/ml (0-0.5) 08/12/22 18:40 Urine Color Yellow 08/12/22 18:40 Urine Appearance Turbid (Clear) A 08/12/22 18:40 Urine pH 8.0 (4.5-7.5) H 08/12/22 18:40 Ur Specific [place] 1.017 (1.000-1.030) 08/12/22 18:40 Urine Protein 2+ (Negative) H 08/12/22 18:40 Urine Glucose (UA) Negative (Negative) 08/12/22 18:40 Urine Ketones Negative (Negative) 08/12/22 18:40 Urine Blood 3+ (Negative) H 08/12/22 18:40 Urine Nitrite Positive (Negative) A 08/12/22 18:40 Urine Bilirubin Negative (Negative) 08/12/22 18:40 Urine Urobilinogen Negative (Negative) 08/12/22 18:40 Ur Leukocyte Esterase 3+ (Negative) H 08/12/22 18:40 Urine WBC (Auto) >30 /hpf (0-5) H 08/12/22 18:40 Urine RBC (Auto) >30 /hpf (0-4) H 08/12/22 18:40 U Hyaline Cast (Auto) 1-5 /lpf (0-5) 08/12/22 18:40 U Epithel Cells (Auto) 10-20 /lpf (0-5) H 08/12/22 18:40 Urine Bacteria (Auto) 4+ (Negative) H 08/12/22 18:40 Urine Crystals Not Reportable 08/12/22 18:40 Impressions Chest X-Ray 08/12/22 18:41 XR chest 1V portable CLINICAL HISTORY: Sepsis TECHNIQUE: Single frontal radiograph of the chest was obtained. Comparison: Comparison is made to chest radiograph 07/18/2022 FINDINGS: No lines and tubes are seen. Cardiomegaly is noted. Airspace opacity is seen in the left lung. There is mild prominence of the pulmonary vasculature. No evidence of pleural effusion or pneumothorax. IMPRESSION: 1. Airspace opacity in the left lung which may represent atelectasis, p neumonia, and/or aspiration. 2. Cardiomegaly and mild pulmonary edema. ACT 112: Negative or not required by law. Electronically signed by: Travis Perry M.D. 08/12/2022 7:41 PM Abdomen/Pelvis CT 08/12/22 18:42 CT OF THE ABDOMEN AND PELVIS WITH CONTRAST CLINICAL HISTORY: sepsis, ?UTI COMPARISON STUDY: CT of the abdomen and pelvis March 19, 2019. TECHNIQUE: Following IV administration of 94 mL of Optiray, axial images of the abdomen and pelvis were obtained from the lung bases to the proximal femurs. Images were reviewed in the axial, sagittal, and coronal planes. IV contrast was administered without complication. Automated exposure control was utilized for the study. A dose lowering technique was utilized adhering to the principles of ALARA. CT DOSE: 1211.01 mGy.cm FINDINGS: Several old left-sided rib fractures are noted. There is cardiomegaly with extensive mitral annular calcification. No pneumatosis, free air or portal venous gas is present. Hepatic steatosis is noted. Spleen, adrenal glands and pancreas are unremarkable. Is no biliary or pancreatic ductal dilatation. There is no evidence for a bowel obstruction. Colonic diverticulosis is noted without evidence for acute diverticulitis. The prostate is enlarged, measuring 5.5 cm in transverse dimension. Bladder is distended. A small amount of gas within the bladder is noted. There is bladder wall thickening with moderate adjacent stranding. There is mild wall thickening and enhancement of the bilateral ureters and renal pelves. There is no CT evidence for acute pyelonephritis. There is no renal abscess. No urinary calculi identified. There is no lymphadenopathy. Mild aneurysmal dilatation of the abdominal aorta measuring 3.2 cm is similar to prior CT. IMPRESSION: 1. Wall thickening of the bladder with adjacent infiltration consistent with cystitis. Small amount of gas within the bladder which could be correlated with history of recent instrumentation. Enlarged prostate. 2. Findings suggestive of bilateral pyelitis. No CT evidence for pyelonephritis. No hydronephrosis. No renal abscess. 3. No significant change in mild aneurysmal dilatation of the abdominal aorta, measuring 3.2 cm. ACT 112: Negative or not required by law. Electronically signed by: Kurtis Contreras M.D. 08/13/2022 8:[address] 08/12/22 18:45 CT head/brain wo con CLINICAL HISTORY: 86 years-old Male with sepsis confusion. Acute sepsis with altered mental status TECHNIQUE: Multiple axial CT images of the head were obtained without contrast. A dose lowering technique was utilized adhering to the principles of ALARA. CT DOSE: 614.27 mGy.cm COMPARISON: Head CT 05/07/2016 FINDINGS: No acute intracranial hemorrhage, midline shift, intracranial mass, hydrocephalus, territorial ischemia or abnormal extra-axial collection. Age- related involutional changes. White matter hypodensities are suggestive of chronic microvascular ischemic disease. 0.6 x 0.2 cm hyperdense focus involving the falx cerebri on image 24 series 2 appears unchanged from the prior study and may represent a small vessel. Cerebral vascular calcifications. The calvarium is intact. Mild mucosal thickening of the ethmoid and maxillary sinuses. Unremarkable soft tissues. Prior bilateral lens repair. Mastoid air cells are clear. IMPRESSION: No acute intracranial abnormality. ACT 112: Negative or not required by law. The above report was generated using voice recognition software. It may contain grammatical, syntax or spelling errors. Electronically signed by: Ronny Mccormick M.D. 08/13/2022 7:21 AM
[2022-08-15] MEDS: allopurinoL 300 MG TAB PO SCH (20:48)
[2022-08-15] MEDS: TAMSULOSIN HCL 0.4 MG CAP PO SCH (20:48)
[2022-08-16 06:15] LABS: Basophils # (auto) 0.02 K/uL (0-0.2); Basophils % (auto) 0.3 %; Eosinophils # (auto) 0.05 K/uL (0-0.50); Eosinophils % (auto) 0.7 %; Hematocrit (blood only) 40.1 % (40.1-51.0); Hemoglobin 13.5 g/dl (14.0-18.0); Immature Granulocytes # (auto) 0.03 K/uL (0.00-0.02); Immature Granulocytes % (auto) 0.4 %; Lymphocytes # (auto) 1.53 K/uL (1.2-3.4); Lymphocytes % (auto) 21.4 %; Mean Corpuscular Hemoglobin 30.3 pg (25.0-34.0); Mean Corpuscular Hgb Conc 33.7 g/dL (32.0-36.0); Mean Corpuscular Volume 90.1 fL (80.0-100.0); Mean Platelet Volume 11.2 fL (9.4-12.4); Monocytes # (auto) 1.18 K/uL (0.24-0.82); Monocytes % (auto) 16.5 %; Neutrophils # (auto) 4.34 K/uL (1.4-6.5); Neutrophils % (auto) 60.7 %; Platelet Count 155 K/uL (130-400); RDW Coefficient of Variation 14.5 % (11.5-14.5); RDW Standard Deviation 47.6 fL (36.4-46.3); Red Blood Count 4.45 M/uL (4.63-6.08); White Blood Count 7.15 K/ul (4.8-10.8)
[2022-08-16 06:46] LABS: BUN Creatinine Ratio 9.6 (10-20); Creatinine Clr Calc Pharmacy 69.3 ml/min; Est GFR (African American) 85.3 ml/min; Est GFR (Non-African American) 73.6 ml/min; Potassium 3.8 mmol/L (3.5-5.1)
[2022-08-16] MEDS: ATORVASTATIN 40 MG TAB PO SCH (09:06)
[2022-08-16] MEDS: ASPIRIN 81 MG ECTAB PO SCH (09:06)
[2022-08-16] MEDS: MULTIVITAMIN TAB PO SCH (09:06)
[2022-08-16] MEDS: METOPROLOL SUCC 50MG EXT REL TAB PO SCH (09:06)
[2022-08-16] MEDS: DOXYCYCLINE HYCLATE 100 MG CAP PO SCH (09:06)
[2022-08-16] MEDS: FINASTERIDE 5 MG TAB PO SCH (09:06)
[2022-08-16] MEDS: GABAPENTIN 600 MG TAB PO SCH (09:06)
[2022-08-16] MEDS: PANTOprazole 40 MG TAB PO SCH (09:06)
[2022-08-16] MEDS: INSULIN ASPART PER UNIT SC SCH ×2 (09:07→12:58)
[2022-08-16] MEDS: PIPERACILLIN/TAZOBACTAM 3.375 GM in DEXTROSE 5% 100 ML IV SCH (09:12)
--- NOTE | 2022-08-16 16:57 | Discharge Summary ---
Date of Service August 16, 2022 Admission HPI Per Admitting Provider This is an 86-year-old male with past medical history significant for hyperlipidemia, diabetes, idiopathic chronic gout, history of paroxysmal atrial fibrillation in the setting of severe sepsis, history of abdominal aortic aneurysm without rupture, history of CAD, status post RCA stent; history of nonmelanoma skin cancer, history of chronic kidney disease stage III, history of peripheral vascular disease, was recently in the hospital with COVID positive, initially required oxygen, but he did okay later and he also found to have urinary retention, status post Bañuelos catheter and discharged home with Bañuelos, followed outpatient with Urology, initially failed voiding trial, but voided yesterday. Bañuelos was taken out yesterday and today he developed fevers and feeling chills, not feeling well and had burning micturition and came to the hospital. He says he has been micturating okay. In the hospital, his temp was 38.5, pulse was in the 90s. Urine was grossly positive. CT abdomen and pelvis preliminary report shows moderate wall thickening of the urinary bladder with surrounding inflammation consistent with UTI. Currently, the patient is resting comfortably, hemodynamically stable. No headache, no neck pain, no chest pain, no back pain, no abdominal pain. Some pain in the left small toe with small healing open ulcer, which happened when he fell seemed to be last month. No blurred visions, no earache, no runny nose, no sore throat. No cough. Appetite is okay. Eating and drinking okay. No difficulty swallowing. No shortness of breath, no cough, no nausea, no abdominal pain. Admission Exam Per Admitting Provider GENERAL: The patient is of moderate build, not in acute distress. VITAL SIGNS: Temperature 38.5, pulse 91, respiratory rate 18, blood pressure 113/63, oxygen 93% on 2 liters. HEENT: Pupils equal, round and reactive to light. Oral mucosa moist. NECK: No JVD or neck masses. CARDIOVASCULAR: S1 and S2 heard. Regular rate and rhythm. No murmur, no gallop. RESPIRATORY: Normal AP diameter. No accessory muscle use. No wheezing, no crackles. ABDOMEN: Soft, bowel sounds present, nontender, no distention. CENTRAL NERVOUS SYSTEM: Cranial nerves II through XII are grossly intact, nonfocal. EXTREMITIES: Trace pedal edema, some open slow healing ulcer seen on the left small toe on the lateral aspect. Principal Diagnosis Sepsis POA Cystitis with bilateral pyelitis 2/2 Serratia History of urinary retention requiring Bañuelos placement ( last successful TOV is on 08/10/2022) Discharge Exam Constitutional: Awake, alert orient x3; not in any distress. Respiratory: normal respiratory effort, lungs clear to auscultation, no wheeze, rales, rhonchi. Normal insp/exp effort, no accessory muscle use Cardiovascular: RRR, no murmur, no edema Vessels: no JVD or carotid bruit Chest: normal inspection of chest Abdomen: normal bowel sounds, soft, nontender, no hepatosplenomegaly. Bañuelos in place draining clear urine Musculoskeletal: no cyanosis or clubbing, extremities motor strength 5/5 Skin: no rashes, warm and dry normal turgor Neurologic: PERRL, EOMI, accommodation nl, no face palsy, no dysarthria CN's II- XI intact bilaterally and moves all extremities Psychiatric: A+Ox3, euthymic affect Lymphatic: no cervical or axillary lymphadenopathy : deferred Discharge Data Allergies Allergy/AdvReac Type Severity Reaction Status Date / Time No Known Allergies Allergy Mild Verified 08/12/22 21:07 Consultations 08/12/22 21:07 ED Decision to Admit Stat 08/13/22 08:00 Consult Urology Routine Ordered Studies 08/12/22 18:42 CT abd pelvis IV con only Urgent 08/12/22 18:45 CT head/brain wo con Urgent Hospital Course (1) Urinary tract infection: (2) Cellulitis of left lower extremity: (3) Hematuria: (4) Sepsis: Plan This is an 86-year-old male with past medical history significant for hyperlipidemia, diabetes, idiopathic chronic gout, history of paroxysmal atrial fibrillation in the setting of severe sepsis, history of abdominal aortic aneurysm without rupture, history of CAD, status post RCA stent; history of nonmelanoma skin cancer, history of chronic kidney disease stage III, history of peripheral vascular disease presented to the ED with fever and generalized weakness. He had successfully undergone trial of void a day prior to presentation to the hospital by urology. On presentation to the ED, he was found to be febrile. Urinalysis showed signs of infection. CT abdomen and pelvis showed cystitis with bilateral pyelitis. Patient was admitted to telemetry floor for further care. Patient was started on IV Zosyn. Urine culture was positive for Serratia Marcescens; sensitive to Zosyn, levofloxacin. Urology was consulted who recommended prolonged course of antibiotic up to 14 days and keeping the Bañuelos until patient is seen as outpatient. Patient's fever curve improved over the course of hospitalization. His leukocytosis resolved. Patient was discharged on 10 more days of levofloxacin 750 mg once daily. He was recommended to watch for sign of side effects which can include tendon pain and rupture. Discussion was done with urology at discharge. Patient has a fo llow-up appointment on September 07. Urology will arrange for follow-up earlier for definitive management of Bañuelos. Patient was discharged home with his . Total Time Total Time Spent Total Time Spent (In Minutes): 35 Discharge Plan Discharge Items Patient Disposition: Home - Home Health Services Reason For Visit: FEVER Discharge Diagnosis: Sepsis POA Cystitis with bilateral pyelitis 2/2 Serratia History of urinary retention requiring Bañuelos placement ( last successful TOV is on 08/10/2022) Activity: Resume your previous activity Non-emergency contact: Primary Care Provider Call non-emergency contact if: you have any medication questions Follow-up/Referrals: Paxton Mata DO [Physician] - 09/07/22 10:40 am Eron Tovar MD [Primary Care Provider] - (Date & Time 08/23/2022 1:40 PM Provider Eron Tovar DO Department [facility] ) Diet: Regular Addtl Attending Provider Instructions: You were admitted to the hospital and found to have bladder and ureteric infection secondary to Serratia marcescens( Bacteria). You are prescribed Levofloxacin( antibiotic) 750 mg once a day for 10 days. The side effect may include ligament and tendon pain/rupture. If you experience the side effect; hold the medication and contact your primary care doctor. You will need follow-up with the urologist to manage the Bañuelos catheter. Your appointment is on September 07 at 10:40 AM. You might get a call from urology office to have the appointment sooner. Please follow-up with your primary care doctor. Pending Studies at Discharge: No Stand-Alone Forms: My Agilvax, Smoking Cessation Medications and DC Order Prescriptions: New acetaminophen 325 mg Tablet 650 mg PO Q4H PRN (Reason: fever or pain) Qty: 30 0RF levofloxacin 750 mg tablet 750 mg PO DAILY 10 Days Qty: 10 0RF Continued tamsulosin 0.4 mg capsule 0.4 mg PO HS Qty: 30 11RF finasteride 5 mg tablet 5 mg PO DAILY Qty: 30 11RF metformin 500 mg tablet 500 mg PO AMPM metoprolol succinate 50 mg Tablet Extended Release 24 Hr 50 mg PO DAILY omeprazole 20 mg capsule,delayed release(DR/EC) 20 mg PO DAILY nitroglycerin [Nitrostat] 0.4 mg Tablet, Sublingual 0.4 mg sublingual .PRN PRN (Reason: Chest Pain) Rx Instructions: NEEDED FOR CHEST PAIN : ONE TABLET UNDER THE TONGUE EVERY 5 MINUTES UP TO 3 DOSES. atorvastatin 40 mg tablet 40 mg PO DAILY gabapentin 600 mg tablet 600 mg PO TID acetaminophen 325 mg Tablet 650 mg PO Q4H PRN (Reason: fever or pain) 30 Days Qty: 30 0RF multivitamin Tablet 1 tab PO DAILY aspirin 81 mg Tablet,Delayed Release (Dr/Ec) 81 mg PO DAILY allopurinol 300 mg tablet 300 mg PO HS Discharge Orders: Discharge Order (Routine); Ordered 08/16/22 Ordered By: Doyle Hurley/Other Patient Handouts: Managing Type 2 Diabetes Admission Data Admit Date/Time: 08/12/22 22:34 Attending Provider: Doyle Ward Admit Provider: Tramaine Elliott Primary Care Provider: Eron Tovar Other Providers: Tramaine Elliott ; Paxton Mata ; [facility] Other Interventions: Discharge Summary Assessment (RN) Last Done: 08/16/22 13:31
--- NOTE | 2022-08-24 05:59 | Coding Query ---
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 Please assist us with the question(s) below: Coding Question(s): Pt admitted with Sepsis/UTI. HP: CXR - possible pneumonia, atelectasis or aspiration. Pt with prior Covid admission. Please check below the phrase that describes the pneumonia. Thanks for your help! REAL Gonzales [facility] Physician's Response(s): Pneumonia was treated during this admission Pneunonia was not treated during this admission ____X___ Cannot clinically corrrelate if pneumonia was treated Other: Please document: Principal Diagnosis: "that condition established after study, to be chiefly responsible for occasioning the admission of the patient to the hospital for care." Co-Existing Principal Diagnosis: "when two or more diagnoses equally meet the criteria for principal diagnosis as determined by the circumstances of admission, diagnostic work up, and/or therapy provided, and the Alphabetic Index, Tabular List, or another coding guideline does not provide sequencing direction, any one of the diagnoses may be sequenced first." "When the physician has documented what appears to be a current diagnosis in the body of the record, but has not included the diagnosis in the final diagnostic statement, the physician should be asked whether the diagnosis should be added." (Source Coding [facility] 2 QTR90. p3-4) ENOC
== END 2022-08-16 14:00 | disposition home health service (06) | DRG 871 ==
LOC: ED 18:17 → 2W 22:34 → 2N 08-13 14:32

== ENCOUNTER 2024-11-06 21:40 | Inpatient (IN) ==
[2024-11-06] MEDS ORDERED: VANCOMYCIN CONSULT ACTIVE PRN (22:08)
[2024-11-06 22:28] LABS: Basophils # (auto) 0.02 K/uL (0.00-0.20); Basophils % (auto) 0.2 %; Hematocrit (blood only) 32.7 % (42.0-52.0); Hemoglobin 10.3 g/dl (14.0-18.0); Immature Granulocytes # (auto) 0.05 K/uL (0.01-0.20); Immature Granulocytes % (auto) 0.5 %; Lymphocytes # (auto) 0.77 K/uL (1.20-3.40); Lymphocytes % (auto) 7.2 %; Mean Corpuscular Hemoglobin 25.7 pg (25.0-34.0); Mean Corpuscular Hgb Conc 31.5 g/dL (32.0-36.0); Mean Corpuscular Volume 81.5 fL (80.0-100.0); Mean Platelet Volume 12.5 fL (9.4-12.4); Monocytes # (auto) 1.08 K/uL (0.11-0.59); Monocytes % (auto) 10.1 %; Platelet Count 136 K/uL (130-400); RDW Coefficient of Variation 15.9 % (11.5-14.5); RDW Standard Deviation 47.2 fL (36.4-46.3); Red Blood Count 4.01 M/uL (4.70-6.10); White Blood Count 10.72 K/ul (4.8-10.8)
[2024-11-06] MEDS: SODIUM CHLORIDE 0.9% 1,000 ML IV ONE (22:31)
[2024-11-06] MEDS: PIPERACILLIN/TAZOBACTAM 4.5 GM/100 ML BAG IV ONE (22:31)
[2024-11-06 22:36] LABS: BUN Creatinine Ratio 18.4 (10-20); Bilirubin Direct 0.2 mg/dl (0-0.2); Magnesium 1.2 mg/dl (1.7-2.4); Potassium 4.1 mmol/L (3.5-5.1); Total Protein 6.7 gm/dl (6.0-8.3)
[2024-11-06] MEDS: ACETAMINOPHEN 1,000 MG/100 ML VIAL IV STA (22:47)
--- NOTE | 2024-11-06 22:51 | Emergency Department Note ---
History of Present Illness General Chief complaint: Weakness Stated complaint: WEAKNESS, CONFUSION FOR A COUPLE DAYS Time Seen by Provider: 11/06/24 21:49 History of Present Illness Maximum Pain Intensity: 4 This 88-year-old male that had leg surgery last month in [place] that follows up in 2 weekse with past medical history significant for hyperlipidemia, diabetes, idiopathic chronic gout, history of paroxysmal atrial fibrillation in the setting of severe sepsis, history of abdominal aortic aneurysm without rupture, history of CAD, status post RCA stent; history of nonmelanoma skin cancer, history of chronic kidney disease stage III, history of peripheral vascular disease presents the ER for fever, generalized weakness illness and concerns of left lower leg infection. Patient states he had decreased blood flow to the leg and this is why they did surgery. He is not sure if there is a stent there or they harvested vein. Patient has a Bañuelos in place. Patient denies chest pain, dyspnea, cough, congestion, abdominal pain, vomiting, diarrhea. was concerned and called EMS. Home Medications Medication Instructions Recorded Confirmed Type nitroglycerin 0.4 mg sublingual 0.4 mg sublingual .PRN PRN Chest 03/20/19 11/06/24 History tablet (Nitrostat) Pain omeprazole 20 mg capsule,delayed 20 mg PO DAILYBB 03/20/19 11/06/24 History release atorvastatin 40 mg tablet 40 mg PO DAILY 07/18/22 11/06/24 History gabapentin 600 mg tablet 600 mg PO TID 07/18/22 11/06/24 History allopurinol 300 mg tablet 300 mg PO HS 08/12/22 11/06/24 History aspirin 81 mg tablet,delayed 81 mg PO DAILY 08/12/22 11/06/24 History release multivitamin 1 tab PO DAILY 08/12/22 11/06/24 History acetaminophen 325 mg tablet 650 mg (2 x 325 mg) PO Q4H PRN 08/16/22 11/06/24 Rx fever or pain #30 tabs apixaban 5 mg tablet (Eliquis) 5 mg PO AMHS 11/06/24 11/06/24 History furosemide 40 mg tablet 40 mg PO QAM 11/06/24 11/06/24 History metformin 500 mg tablet,extended 1,000 mg PO AMPM 11/06/24 11/06/24 History release 24 hr metoprolol succinate 50 mg 150 mg PO AMHS 11/06/24 11/06/24 History tablet,extended release 24 hr mirabegron 50 mg tablet,extended 50 mg PO QAM 11/06/24 11/06/24 History release 24 hr tramadol 50 mg tablet 50 mg PO Q6 PRN Pain 11/06/24 11/06/24 History Allergies Allergy/AdvReac Type Severity Reaction Status Date / Time No Known Allergies Allergy Mild Verified 08/12/22 21:07 Past Med/Surg History Problem List (Updated 11/07/24 @ 06:09 by Ness Sky PA-C) Acute UTI (Acute) Sepsis (Acute) Cellulitis of left lower extremity (Acute) Sepsis (Acute) Urinary tract infection (Acute) Elevated lactic acid level (Acute) Hypomagnesemia (Acute) Cellulitis of left lower extremity (Acute) Hematuria Atrial fibrillation with RVR GERD (gastroesophageal reflux disease) (Chronic) Diabetic polyneuropathy (Chronic) Urinary retention Cellulitis Diabetes mellitus 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) Dyslipidemia (Chronic) Medical History Atrial fibrillation with RVR Cellulitis COVID Diabetes mellitus Diabetic polyneuropathy GERD (gastroesophageal reflux disease) Hypoxia Recurrent falls Urinary retention Family History Other Family history non-contributory Social History Smoking Status: Never smoker Hx Alcohol Use: No Hx Substance Use: No Preferred Language: Ken[place] Communication Ability: Effective Crown Pouncer Required: No Beliefs That Will Affect Care: None marital status: Current Living Situation: Spouse Feels Safe at Home: Yes Assistive Devices: Cane Review of Systems A total of 10 systems reviewed and were otherwise negative Physical Exam Vital Signs Vital Signs - 24 hr 11/06/24 21:54 11/06/24 21:56 11/06/24 21:56 Temperature 38.4 C H Temperature Source Oral Pulse Rate 82 80 Pulse Rate [Apical] Pulse Rate from SpO2 Sensor Pulse Rhythm Regular Pulse Strength Normal Respiratory Rate 22 Respiratory Effort / Characteristics Non-Labored Spontaneous Respiratory Depth Normal Respiratory Pattern Regular Blood Pressure 112/59 L Blood Pressure [Right Arm] Blood Pressure Mean 76 Blood Pressure Mean [Right Arm] Blood Pressure Position Lying Blood Pressure Position [Right Arm] Pulse Oximetry 96 Oxygen Delivery Method Nasal Cannula Nasal Cannula Oxygen Flow Rate 3 3 Sepsis Recent Fever Within 48 Hours Yes Sepsis New/Unexplained Change in Mental Status Yes Sepsis Action Taken by Nursing Physician Notified 11/06/24 22:00 11/06/24 22:15 11/06/24 22:17 Temperature Temperature Source Pulse Rate 82 81 80 Pulse Rate [Apical] Pulse Rate from SpO2 Sensor 79 Pulse Rhythm Pulse Strength Respiratory Rate 28 H 25 H 26 H Respiratory Effort / Characteristics Respiratory Depth Respiratory Pattern Blood Pressure Blood Pressure [Right Arm] Blood Pressure Mean Blood Pressure Mean [Right Arm] Blood Pressure Position Blood Pressure Position [Right Arm] Pulse Oximetry 96 97 Oxygen Delivery Method Nasal Cannula Oxygen Flow Rate 2 Sepsis Recent Fever Within 48 Hours Sepsis New/Unexplained Change in Mental Status Sepsis Action Taken by Nursing 11/06/24 22:17 11/06/24 22:20 11/06/24 22:30 Temperature Temperature Source Pulse Rate 73 Pulse Rate [Apical] 81 79 Pulse Rate from SpO2 Sensor 72 Pulse Rhythm Pulse Strength Respiratory Rate 22 25 H 22 Respiratory Effort / Characteristics Non-Labored Spontaneous Respiratory Depth Normal Respiratory Pattern Regular Blood Pressure 120/58 L Blood Pressure [Right Arm] 116/56 L Blood Pressure Mean 85 Blood Pressure Mean [Right Arm] 76 Blood Pressure Position Blood Pressure Position [Right Arm] Semi-fowlers Pulse Oximetry 96 97 96 Oxygen Delivery Method Nasal Cannula Nasal Cannula Nasal Cannula Oxygen Flow Rate 2 2 2 Sepsis Recent Fever Within 48 Hours Sepsis New/Unexplained Change in Mental Status Sepsis Action Taken by Nursing 11/06/24 22:42 11/06/24 22:42 11/06/24 22:45 Temperature Temperature Source Pulse Rate Pulse Rate [Apical] 73 Pulse Rate from SpO2 Sensor Pulse Rhythm Pulse Strength Respiratory Rate 22 Respiratory Effort / Characteristics Non-Labored Spontaneous Respiratory Depth Normal Respiratory Pattern Regular Blood Pressure 105/52 L 109/54 L Blood Pressure [Right Arm] 105/52 L Blood Pressure Mean 64 69 Blood Pressure Mean [Right Arm] 69 Blood Pressure Position Blood Pressure Position [Right Arm] Semi-fowlers Pulse Oximetry 96 Oxygen Delivery Method Room Air Oxygen Flow Rate Sepsis Recent Fever Within 48 Hours Sepsis New/Unexplained Change in Mental Status Sepsis Action Taken by Nursing 11/06/24 22:45 11/06/24 22:45 11/06/24 22:45 Temperature Temperature Source Pulse Rate 72 Pulse Rate [Apical] Pulse Rate from SpO2 Sensor 72 Pulse Rhythm Pulse Strength Respiratory Rate 21 Respiratory Effort / Characteristics Respiratory Depth Respiratory Pattern Blood Pressure 109/54 L 109/54 L Blood Pressure [Right Arm] Blood Pressure Mean 69 69 Blood Pressure Mean [Right Arm] Blood Pressure Position Blood Pressure Position [Right Arm] Pulse Oximetry 96 Oxygen Delivery Method Oxygen Flow Rate Sepsis Recent Fever Within 48 Hours Sepsis New/Unexplained Change in Mental Status Sepsis Action Taken by Nursing 11/06/24 22:57 11/06/24 23:00 11/06/24 23:00 Temperature Temperature Source Pulse Rate 72 Pulse Rate [Apical] Pulse Rate from SpO2 Sensor 72 Pulse Rhythm Pulse Strength Respiratory Rate 20 Respiratory Effort / Characteristics Respiratory Depth Respiratory Pattern Blood Pressure 106/52 L 106/52 L Blood Pressure [Right Arm] Blood Pressure Mean 73 73 Blood Pressure Mean [Right Arm] Blood Pressure Position Blood Pressure Position [Right Arm] Pulse Oximetry 97 Oxygen Delivery Method Oxygen Flow Rate Sepsis Recent Fever Within 48 Hours Sepsis New/Unexplained Change in Mental Status Sepsis Action Taken by Nursing 11/06/24 23:08 11/06/24 23:15 11/06/24 23:45 Temperature 37.4 C Temperature Source Oral Pulse Rate 87 68 Pulse Rate [Apical] 70 Pulse Rate from SpO2 Sensor 77 68 Pulse Rhythm Pulse Strength Respiratory Rate 16 22 18 Respiratory Effort / Characteristics Non-Labored Spontaneous Respiratory Depth Normal Respiratory Pattern Regular Blood Pressure 126/63 97/55 L Blood Pressure [Right Arm] 106/52 L Blood Pressure Mean 78 63 Blood Pressure Mean [Right Arm] 70 Blood Pressure Position Blood Pressure Position [Right Arm] Semi-fowlers Pulse Oximetry 96 94 95 Oxygen Delivery Method Nasal Cannula Nasal Cannula Nasal Cannula Oxygen Flow Rate 2 2 2 Sepsis Recent Fever Within 48 Hours Sepsis New/Unexplained Change in Mental Status Sepsis Action Taken by Nursing 11/07/24 00:00 11/07/24 00:05 11/07/24 00:15 Temperature Temperature Source Pulse Rate 69 68 66 Pulse Rate [Apical] Pulse Rate from SpO2 Sensor 70 68 67 Pulse Rhythm Pulse Strength Respiratory Rate 20 19 19 Respiratory Effort / Characteristics Respiratory Depth Respiratory Pattern Blood Pressure 78/39 L 84/36 L 96/39 L Blood Pressure [Right Arm] Blood Pressure Mean 54 60 53 Blood Pressure Mean [Right Arm] Blood Pressure Position Blood Pressure Position [Right Arm] Pulse Oximetry 95 95 96 Oxygen Delivery Method Nasal Cannula Nasal Cannula Nasal Cannula Oxygen Flow Rate 2 2 2 Sepsis Recent Fever Within 48 Hours Sepsis New/Unexplained Change in Mental Status Sepsis Action Taken by Nursing 11/07/24 00:30 11/07/24 01:30 11/07/24 01:54 Temperature Temperature Source Pulse Rate 71 73 71 Pulse Rate [Apical] Pulse Rate from SpO2 Sensor 69 72 Pulse Rhythm Pulse Strength Respiratory Rate 17 18 Respiratory Effort / Characteristics Respiratory Depth Respiratory Pattern Blood Pressure 102/54 L 119/63 Blood Pressure [Right Arm] Blood Pressure Mean 60 81 Blood Pressure Mean [Right Arm] Blood Pressure Position Blood Pressure Position [Right Arm] Pulse Oximetry 96 90 Oxygen Delivery Method Nasal Cannula Nasal Cannula Oxygen Flow Rate 2 2 Sepsis Recent Fever Within 48 Hours Sepsis New/Unexplained Change in Mental Status Sepsis Action Taken by Nursing VITALS: Vitals are noted on the nurse's note and reviewed by myself. Vital signs febrile. GENERAL: Pleasant elderly male answering questions appropriately, in no acute distress, nondiaphoretic, well-developed well-nourished. SKIN: Left lower leg with stitches in place with surrounding erythema with concerns for cellulitis, the rest of the skin was without rashes, erythema, edema, or bruising. There is no tenting of the skin. Capillary reflex less than 2 seconds. HEAD: Normocephalic atraumatic. EARS: External auditory canals clear EYES: Pupils equal round and reactive to light and accommodation. Conjunctivae without injection, sclerae without icterus. Extraocular movements intact. NOSE: Patent, no discharge. MOUTH: Mucous membranes moist. Pharynx without erythema or exudate. Uvula midline. Airway patent. Tongue does not deviate. NECK: Supple without nuchal rigidity. No lymphadenopathy. No thyromegaly. Cervical spine is nontender. No JVD. HEART: Regular rate and rhythm LUNGS: Clear to auscultation bilaterally without wheezes, rales or rhonchi. No retractions or accessory muscle use. ABDOMEN: Positive bowel sounds x 4. Normal tympanic percussion. Soft, nontender, without masses or organomegaly. Herr sign negative. No guarding or rebound tenderness. No CVA tenderness MUSCULOSKELETAL: No muscle atrophy noted. NEURO: Patient was alert and oriented to person place and time. Normal sensation to light and sharp touch. No focal neurological deficits. Course Administered Medications Discontinued Medications Piperacillin Sod/Tazobactam Sod (Zosyn) 4.5 gm in 100 mls @ 200 mls/hr IV NOW ONE; Protocol Stop: 11/06/24 22:37 Last Infusion: 11/06/24 23:06 Dose: Infused Documented By: Admin: 11/06/24 22:31 Dose: 200 mls/hr Documented By: KATHIA Vancomycin HCl 2,000 mg/ (Sodium Chloride) 540 mls @ 200 mls/hr IV NOW ONE Stop: 11/07/24 00:49 Last Infusion: 11/07/24 03:28 Dose: Infused Documented By: Admin: 11/06/24 23:07 Dose: 200 mls/hr Documented By: KATHIA Sodium Chloride (Nss) 1,000 mls @ 999 mls/hr IV .Q1H1M ONE Stop: 11/06/24 23:25 Last Infusion: 11/07/24 01:47 Dose: Infused Documented By: Admin: 11/06/24 22:31 Dose: 999 mls/hr Documented By: KATHIA Acetaminophen (Ofirmev) 1,000 mg in 100 mls @ 400 mls/hr IV NOW STA Stop: 11/06/24 22:39 Last Infusion: 11/06/24 23:06 Dose: Infused Documented By: Admin: 11/06/24 22:47 Dose: 400 mls/hr Documented By: KATHIA Magnesium Sulfate/Dextrose (Magnesium Sulfate / D5w) 1 gm in 100 mls @ 100 mls/hr IV Q1H [place] Stop: 11/07/24 01:23 Last Infusion: 11/07/24 03:28 Dose: Infused Documented By: Admin: 11/07/24 01:09 Dose: 100 mls/hr Documented By: Infusion: 11/07/24 01:07 Dose: Infused Documented By: Admin: 11/06/24 23:49 Dose: 100 mls/hr Documented By: DANIELA Sodium Chloride (Nss) 1,000 mls @ 999 mls/hr IV .Q1H1M ONE Stop: 11/07/24 01:12 Last Infusion: 11/07/24 01:08 Dose: Infused Documented By: Admin: 11/07/24 00:26 Dose: 999 mls/hr Documented By: DANIELA Medical Decision Making Medical Records Attestation: I reviewed the patient's medical records. Home Medications Current Medication List: was personally reviewed by me Laboratory Data Attestation: I reviewed the patient's lab results. 11/06/24 22:03 11/06/24 22:03 Lab Results 11/06/24 11/06/24 11/06/24 Range/Units 21:05 22:03 22:08 WBC 10.72 (4.8-10.8) K/ul RBC 4.01 L (4.70-6.10) M/uL Hgb 10.3 L (14.0-18.0) g/dl Hct 32.7 L (42.0-52.0) % MCV 81.5 (80.0-100.0) fL MCH 25.7 (25.0-34.0) pg MCHC 31.5 L (32.0-36.0) g/dL RDW Std Deviation 47.2 H (36.4-46.3) fL RDW Coeff of Sandie 15.9 H (11.5-14.5) % Plt Count 136 (130-400) K/uL MPV 12.5 H (9.4-12.4) fL Immature Gran % (Auto) 0.5 % Neut % (Auto) 82.0 % Lymph % (Auto) 7.2 % [place] % (Auto) 10.1 % Eos % (Auto) 0.0 % Baso % (Auto) 0.2 % Neut # (Auto) 8.80 H (1.40-6.50) K/uL Lymph # (Auto) 0.77 L (1.20-3.40) K/uL [place] # (Auto) 1.08 H (0.11-0.59) K/uL Eos # (Auto) 0.00 (0.00-0.50) K/uL Baso # (Auto) 0.02 (0.00-0.20) K/uL Immature Gran # (Auto) 0.05 (0.01-0.20) K/uL Sodium 134 L (136-145) mmol/L Potassium 4.1 (3.5-5.1) mmol/L Chloride 97 L (98-107) mmol/L Carbon Dioxide 26 (21-32) mmol/L Anion Gap 11 (3-11) BUN 18 (6-23) mg/dl Creatinine 0.98 (0.6-1.4) mg/dl Est Cr Clr Drug Dosing 63.0 ml/min eGFR 74.63 BUN/Creatinine Ratio 18.4 (10-20) Glucose 188 H (70-99(Fasting)) mg/dl Lactate 2.9 H* (0.4-2.0) mmol/L Calcium 9.0 (8.6-10.3) mg/dl Magnesium 1.2 L (1.7-2.4) mg/dl Total Bilirubin 1.0 (0.2-1.0) mg/dl Direct Bilirubin 0.2 (0-0.2) mg/dl AST 19 (13-39) U/L ALT 13 (7-52) U/L Alkaline Phosphatase 69 (34-104) U/L Troponin I High Sens 34.0 H (0-20) pg/ml Total Protein 6.7 (6.0-8.3) gm/dl Albumin 4.0 (3.4-5.0) gm/dl Procalcitonin 0.11 (0-0.5) ng/ml Urine Color Urine Appearance (Clear) Urine pH (4.5-7.5) Ur Specific [place] (1.000-1.030) Urine Protein (Negative) Urine Glucose (UA) (Negative) Urine Ketones (Negative) Urine Blood (Negative) Urine Nitrite (Negative) Urine Bilirubin (Negative) Urine Urobilinogen (Negative) Ur Leukocyte Esterase (Negative) Urine WBC (Auto) (0-5) /hpf Urine RBC (Auto) (0-2) /hpf U Hyaline Cast (Auto) (0-2) /lpf U Epithel Cells (Auto) (0-2) /hpf Urine Bacteria (Auto) (None Seen) Adenovirus (PCR) Not Detected (NotDetected) B. pertussis DNA (PCR) Not Detected (NotDetected) B.parapertussis DNA PCR Not Detected (NotDetected) C. pneumoniae DNA (PCR) Not Detected (NotDetected) Coronavirus OC43 (PCR) Not Detected (NotDetected) Coronavirus HKU1 (PCR) Not Detected (NotDetected) Coronavirus 229E (PCR) Not Detected (NotDetected) SARS-CoV-2 (PCR) Not Detected (NotDetected) Coronavirus NL63 (PCR) Not Detected (NotDetected) Human Metapneumovir PCR Not Detected (NotDetected) Influenza Type A (PCR) Not Detected (NotDetected) Influenza Type B (PCR) Not Detected (NotDetected) M. pneumoniae (PCR) Not Detected (NotDetected) Parainfluenza 1 (PCR) Not Detected (NotDetected) Parainfluenza 2 (PCR) Not Detected (NotDetected) Parainfluenza 3 (PCR) Not Detected (NotDetected) Parainfluenza 4 (PCR) Not Detected (NotDetected) RSV (PCR) Not Detected (NotDetected) Entero/Rhino (PCR) Not Detected (NotDetected) 11/06/24 11/06/24 Range/Units 23:09 23:54 WBC (4.8-10.8) K/ul RBC (4.70-6.10) M/uL Hgb (14.0-18.0) g/dl Hct (42.0-52.0) % MCV (80.0-100.0) fL MCH (25.0-34.0) pg MCHC (32.0-36.0) g/dL RDW Std Deviation (36.4-46.3) fL RDW Coeff of Sandie (11.5-14.5) % Plt Count (130-400) K/uL MPV (9.4-12.4) fL Immature Gran % (Auto) % Neut % (Auto) % Lymph % (Auto) % [place] % (Auto) % Eos % (Auto) % Baso % (Auto) % Neut # (Auto) (1.40-6.50) K/uL Lymph # (Auto) (1.20-3.40) K/uL [place] # (Auto) (0.11-0.59) K/uL Eos # (Auto) (0.00-0.50) K/uL Baso # (Auto) (0.00-0.20) K/uL Immature Gran # (Auto) (0.01-0.20) K/uL Sodium (136-145) mmol/L Potassium (3.5-5.1) mmol/L Chloride (98-107) mmol/L Carbon Dioxide (21-32) mmol/L Anion Gap (3-11) BUN (6-23) mg/dl Creatinine (0.6-1.4) mg/dl Est Cr Clr Drug Dosing ml/min eGFR BUN/Creatinine Ratio (10-20) Glucose (70-99(Fasting)) mg/dl Lactate 1.8 (0.4-2.0) mmol/L Calcium (8.6-10.3) mg/dl Magnesium (1.7-2.4) mg/dl Total Bilirubin (0.2-1.0) mg/dl Direct Bilirubin (0-0.2) mg/dl AST (13-39) U/L ALT (7-52) U/L Alkaline Phosphatase (34-104) U/L Troponin I High Sens 49.8 H D (0-20) pg/ml Total Protein (6.0-8.3) gm/dl Albumin (3.4-5.0) gm/dl Procalcitonin (0-0.5) ng/ml Urine Color Dark Yellow Urine Appearance Clear (Clear) Urine pH 5.0 (4.5-7.5) Ur Specific [place] 1.039 H (1.000-1.030) Urine Protein 2+ H (Negative) Urine Glucose (UA) Negative (Negative) Urine Ketones Trace H (Negative) Urine Blood 2+ H (Negative) Urine Nitrite Negative (Negative) Urine Bilirubin Negative (Negative) Urine Urobilinogen Negative (Negative) Ur Leukocyte Esterase Negative (Negative) Urine WBC (Auto) 21-50 H (0-5) /hpf Urine RBC (Auto) >20 H (0-2) /hpf U Hyaline Cast (Auto) 3-5 H (0-2) /lpf U Epithel Cells (Auto) 3-5 H (0-2) /hpf Urine Bacteria (Auto) None Seen (None Seen) Adenovirus (PCR) (NotDetected) B. pertussis DNA (PCR) (NotDetected) B.parapertussis DNA PCR (NotDetected) C. pneumoniae DNA (PCR) (NotDetected) Coronavirus OC43 (PCR) (NotDetected) Coronavirus HKU1 (PCR) (NotDetected) Coronavirus 229E (PCR) (NotDetected) SARS-CoV-2 (PCR) (NotDetected) Coronavirus NL63 (PCR) (NotDetected) Human Metapneumovir PCR (NotDetected) Influenza Type A (PCR) (NotDetected) Influenza Type B (PCR) (NotDetected) M. pneumoniae (PCR) (NotDetected) Parainfluenza 1 (PCR) (NotDetected) Parainfluenza 2 (PCR) (NotDetected) Parainfluenza 3 (PCR) (NotDetected) Parainfluenza 4 (PCR) (NotDetected) RSV (PCR) (NotDetected) Entero/Rhino (PCR) (NotDetected) Imaging Data Attestation: I personally reviewed and interpreted this imaging study as follows: Radiologist's Impression: Chest X-Ray 11/06/24 22:04 Exam(s): XR CXR 1 VIEW EXAM: XR Chest, 1 View CLINICAL HISTORY: Reason for exam: Sepsis. TECHNIQUE: Frontal view of the chest. COMPARISON: August 12, 2022 FINDINGS: Lungs: Mild vascular congestion without overt edema or acute focal infiltrate. Pleural space: Unremarkable. No pneumothorax. Heart: The cardiac silhouette is mildly enlarged. Mediastinum: Unremarkable. Normal mediastinal contour. Bones/joints: There are several old healed left rib fractures, unchanged. Vasculature: The aortic arch is calcified. Upper abdomen: There is no pneumoperitoneum under the diaphragm. Other findings: The patient is rotated to the right. IMPRESSION: 1. The cardiac silhouette is mildly enlarged. 2. Mild vascular congestion without overt edema or acute focal infiltrate. Electronically signed by: Elijah Echols MD 11/06/24 23:33 PM Venous Doppler Study 11/06/24 22:04 EXAM: US venous doppler LE LT CLINICAL HISTORY: RECENT LLE BYPASS GRAFT. SCARRING MED UPPER THIGH, GSV VEIN HARVESTED (LIMITED HISTORY, PT POOR HISTORIAN, PRESENTS TO ER WITH INCREASED CONFUSION) TECHNIQUE: Ultrasound examination of left lower extremity veins was performed in real time and duplex. One or more of the following were performed- spectral analysis, resistive index, waveform analysis, and pulsed Doppler. COMPARISON: None. FINDINGS: Normal phasic, non-pulsatile and spontaneous flow is noted in left GSV, common femoral, superficial femoral, popliteal, anterior tibial, posterior tibial and peroneal veins. Visualized veins of left lower extremity demonstrate normal compressibility. No sonographic evidence of acute deep vein thrombosis (DVT) is detected in the visualized veins of lower extremity. Compression and Augmentation: All evaluated veins compress fully with applied transducer pressure. Augmentation of venous flow is noted with distal compression. Additional Findings: No evidence of intraluminal thrombus. Evidence of left knee end of thigh scar heterogenous irregular shaped nonvascular complex area is noted measuring 9.7 x 2.0 cm most likely postoperative collection, edema and inflammatory changes/scarring tissue. IMPRESSION: 1. No sonographic evidence of acute DVT detected at the time of examination. 2. Evidence of left knee end of thigh scar heterogenous irregular shaped nonvascular complex area is noted measuring 9.7 x 2.0 cm most likely postoperative collection, edema and inflammatory changes/scarring tissue. 3. Please correlate clinically. Disclaimer: DVT could be missed early in the disease when clot burden is minimal. For patients with moderate and high pretest probability of DVT and negative ultrasound, the [employer] clinical guidelines recommend testing with a D-dimer assay or repeat ultrasound in 5-7 days. If symptoms worsen, the Society of radiologists in ultrasound recommends repeating ultrasound even earlier. Electronically signed by Masha Green 11-07-2024 04:44 AM Duplex Scan Lower Extremity Artery 11/06/24 23:53 EXAM: US arterial duplex LE LT CLINICAL HISTORY: HX: no priors at this facility. Recent bypass graft left lower limb extremity. Redness around stitches. TECHNIQUE: Ultrasound examination of the bilateral lower extremities arteries with ankle brachial indices was performed in real time and duplex. One or more of the following were performed- spectral analysis, resistive index, waveform analysis, and pulsed Doppler. COMPARISON: None. FINDINGS: (Stitches on left medial mid-calf, left distal lateral calf and dorsum left foot along with patient movement making examination limited). 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 Velocities gradually increased throughout the left superficial femoral artery but no focal areas of change in velocities are detected. Additional Findings: Popliteal artery distal to the graft shows monophasic flow with spectral broadening with peak systolic velocity of 62.5 cm/s An ill-defined irregular collection is noted in the medial popliteal fossa measuring 4.1 x 8.9 x 2.2 cm with overlying inflammatory changes and subcutaneous edema Left dorsalis pedis proximal to the graft shows reverse flow with peak systolic velocity of 128 cm/s Vessel Flow Pattern Right Peak Velocity Right (cm/sec) Flow Pattern Left Peak Velocity Left (cm/sec) Common Femoral Artery (DIRECTOR PROJECT MANAGEMENT) - - Biphasic 148 Deep Femoral Artery (DPA) - - Monophasic with spectral broadening 66 Superficial Femoral Artery (SFA) - - Biphasic in proximal Monophasic in mid SFA Monophasic with spectral broadening in the distal SFA 58 in proximal SFA 186 in the mid SFA 260 in distal SFA Popliteal Artery (POP A) - - Monophasic with spectral broadening in proximal middle and distal popliteal artery 135 in proximal left popliteal artery 99 in mid left popliteal artery 74 mm distal left popliteal artery Posterior Tibial Artery (STAFF INTERNIST OFFICE BASED ONLY) - Monophasic flow in with spectral broadening in proximal, middle and distal left posterior tibial artery 101 and left posterior tibial artery proximal 185 in left posterior tibial artery middle 35 in left posterior tibial artery distal part Peroneal artery - Monophasic flow with spectral broadening in left peroneal artery proximal, middle and distal part 61 in proximal left peroneal artery 120 in medial left peroneal artery 101 in distal left peroneal artery Anterior tibial artery (AVI) Monophasic flow with spectral broadening in the proximal left AVI 106 in proximal left AVI Dorsalis Pedis Artery (DPA) - Monophasic flow with spectral broadening 51 IMPRESSION: 1. 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 2. A patent, vascular graft is seen between the left distal popliteal artery just above the triple-vessel runoff and the left dorsalis pedis artery showing high vascular velocities measuring 136.9 cm/s and also the velocities are increased in medial posterior tibial artery and dorsalis pedis artery distal to the anastomosis. High flow velocities suggest mild luminal narrowing however no evidence of thrombosis. 3. Velocities gradually increased throughout the left superficial femoral artery but no focal areas of change in velocities are detected. 4. An ill-defined post-surgical collection is noted in the medial popliteal fossa measuring 4.1 x 8.9 x 2.2 cm with overlying inflammatory changes and subcutaneous edema 5. Further evaluation with CT/MR angiography can be recommended if clinically warranted. Electronically signed by Masha Green 11-07-2024 06:05 AM MDM Narrative Prior records/ancillary studies reviewed. Triage Nursing notes reviewed. Additional history obtained from family. The patient's history was concerning for fever with left lower leg infection. Differential diagnosis: Etiologies such as sepsis, UTI, pneumonia, metabolic, electrolyte abnormalities, cardiac sources, intracerebral event, toxicologic, neurologic, as well as others were entertained. Physical examination: As above. Pertinent findings were left lower leg infection. Vital signs reviewed and revealed febrile and tachycardic. ER treatment provided: IV fluid resuscitation with Normal saline solution, 2000 mL bolus. Blood and urine cultures Antibiotics: Zosyn and vancomycin were ordered I requested the records from [facility] An order was placed for continuous cardiac monitoring. The monitor shows a rate of 60-100 with a sinus rhythm per my interpretation. On reassessment the patient vital signs improved. Diagnostics interpretation by me: ECG: Ordered for weakness EKG: Normal sinus, right bundle, no acute ST-T wave changes, rate of 81. Impression normal sinus rhythm with a right bundle branch block independently interpreted by myself The labs Independently Interpreted by myself revealed no worrisome leukocytosis on CBC. Chemistry panel revealed hyperglycemia without DKA LFTs revealed. Cardiac enzymes were slightly elevated concerning for type II NC. Serum Lactate measurement was 2.9 and repeat was 1.8 after being hydrated. Blood and urine cultures are pending. Negative procalcitonin Imaging studies: Imaging was reviewed and read by radiology as above Consultation: A consultation was placed with the hospitalist. The case was discussed and diagnostics were reviewed. The patient was evaluated in the ER for further treatment. Exam and history seem consistent with sepsis most likely from left lower leg cellulitis and from UTI. Patient was started on broad-spectrum antibiotics. He was hydrated as above. Repeat lactic was clear. Prior urine culture was reviewed. Medicine is consulted case discussed. Patient will be admitted to the medical service. The chart was completed utilizing [employer] voice recognition software. Grammatical errors, random word insertions, pronoun errors, and incomplete sentences are an occassional consequence of this system due to software limitations, ambient noise, and hardware issues. Any formal questions or concerns about the content, text, or information contained within the body of this dictation should be directly addressed to the physician project administrative assistant for clarification. Impression & Plan Cellulitis of left lower extremity, Sepsis, Acute UTI Discharge Plan Visit Data Chief Complaint: Weakness Stated Complaint: WEAKNESS, CONFUSION FOR A COUPLE DAYS ED Provider: Gomez Montano ED Midlevel Provider: Ness Sky Discharge Problem: Cellulitis of left lower extremity, Sepsis, Acute UTI Patient Disposition: Admitted As Inpatient Condition: Fair Discharge Instructions Interventions: ED Discharge Assessment Last Done: 11/07/24 05:30
[2024-11-06] MEDS: VANCOMYCIN HCL 2,000 MG in SODIUM CHLORIDE 0.9% 500 ML IV ONE (23:07)
[2024-11-06 23:15] LABS: Adenovirus PCR Not Detected (NotDetected); Bordetella parapertussis PCR Not Detected (NotDetected); Bordetella pertussis PCR Not Detected (NotDetected); Chlamydia pneumoniae PCR Not Detected (NotDetected); Coronavirus 229E PCR Not Detected (NotDetected); Coronavirus CoV-2 (COVID19)PCR Not Detected (NotDetected); Coronavirus HKU1 PCR Not Detected (NotDetected); Coronavirus NL63 PCR Not Detected (NotDetected); Coronavirus OC43PCR Not Detected (NotDetected); Human Metapneumovirus PCR Not Detected (NotDetected); Influenza A PCR Not Detected (NotDetected); Influenza B PCR Not Detected (NotDetected); Mycoplasma pneumoniae PCR Not Detected (NotDetected); Parainfluenza Virus 1 PCR Not Detected (NotDetected); Parainfluenza Virus 2 PCR Not Detected (NotDetected); Parainfluenza Virus 3 PCR Not Detected (NotDetected); Parainfluenza Virus 4 PCR Not Detected (NotDetected); Respiratory Syncytial VirusPCR Not Detected (NotDetected); Rhinovirus/Enterovirus PCR Not Detected (NotDetected)
--- NOTE | 2024-11-06 23:34 | XRay Report ---
Exam(s): XR CXR 1 VIEW EXAM: XR Chest, 1 View CLINICAL HISTORY: Reason for exam: Sepsis. TECHNIQUE: Frontal view of the chest. COMPARISON: August 12, 2022 FINDINGS: Lungs: Mild vascular congestion without overt edema or acute focal infiltrate. Pleural space: Unremarkable. No pneumothorax. Heart: The cardiac silhouette is mildly enlarged. Mediastinum: Unremarkable. Normal mediastinal contour. Bones/joints: There are several old healed left rib fractures, unchanged. Vasculature: The aortic arch is calcified. Upper abdomen: There is no pneumoperitoneum under the diaphragm. Other findings: The patient is rotated to the right. IMPRESSION: 1. The cardiac silhouette is mildly enlarged. 2. Mild vascular congestion without overt edema or acute focal infiltrate. Electronically signed by: Elijah Echols MD 11/06/24 23:33 PM
--- NOTE | 2024-11-06 23:38 | Emergency Department Note ---
ED Visit Note I was consulted by the Advanced Practice Provider, Ness Sky PA-C. I personally made/approved the management plan and take responsibility for the patient management. I performed a substantive portion of the visit. This includes the aspects of: -MDM: Wound infection post vascular surgery. Ultrasound and arterial studies pending. Lactate cleared. Patient covered with antibiotics. Will admit for further management. .
[2024-11-06 23:46] LABS: Appearance Urine Clear (Clear); Bacteria Urine Automated None Seen (None Seen); Bilirubin Urine Negative (Negative); Blood Urine 2+ (Negative); Color Urine Dark Yellow; Glucose Urine UA Negative (Negative); Ketones Urine Trace (Negative); Leukocyte Esterase Urine Negative (Negative); Nitrite Urine Negative (Negative); Protein Urine 2+ (Negative); RBC Urine Automated >20 /hpf (0-2); Specific Gravity Urine 1.039 (1.000-1.030); Urobilinogen Urine Negative (Negative); WBC Urine Automated 21-50 /hpf (0-5)
[2024-11-06] MEDS: MAGNESIUM SULFATE / D5W 1 GM/100 ML BAG IV SCH (23:49)
[2024-11-07] MEDS: SODIUM CHLORIDE 0.9% 1,000 ML IV ONE (00:26)
--- NOTE | 2024-11-07 04:42 | History & Physical Report ---
Date of Service November 07, 2024 Assessment & Plan (1) Sepsis: Plan: 88-year-old male with past medical significant for type 2 diabetes dyslipidemia, chronic gout, history of hypomagnesia, paroxysmal atrial fibrillation, abdominal aortic aneurysm, ascending aorta enlargement, history of peripheral vascular disease, CKD, CAD status post stent ,recently on October 08, 2024 had elective procedure left popliteal to dorsalis pedis bypass surgery at [facility] and was discharged on 10/16/2024 comes today with a cellulitis of the left lower extremity and fever at home. As per since yesterday she noticed redness in the left lower extremity and also spiking temperature. In the ER his temp is 38.4. Initial blood pressure soft but improved with the fluids. Initial lactic acid 2.9 and repeat is 1.8. Currently hemodynamics are okay. Has mild pain left lower extremity. Patient denies any chest pain or shortness of breath. No cough. No headache or runny nose. No sore throat. Appetite is down since last 2 weeks. Normal bowel and bladder movements. Denies abdominal pain. No nausea. Feeling cold. Sepsis Left lower extremity cellulitis On October 08 patient had left popliteal to dorsalis pedis bypass procedure Dopplers no DVT Arterial Doppler:Marked stenosed left anterior tibial artery.A patent, vascular graft is seen between the left distal popliteal artery just above the triple-vessel runoff and the left dorsalis pedis artery. Left lower extremity is warm and erythematous,. No purple discoloration seen. Had temp spike , hypotension improved now Initial lactic acid 2.9 repeat is 1.8 Empiric Zosynand Vanco Close monitor hemodynamics Follow cultures Continue IV fluids Will hold Lasix for now Vascular surgery consult Monitor on telemetry Type 2 diabetes Hold metformin Sliding scale Will monitor Atrial fibrillation Continue metoprolol succinate On Eliquis History of CAD status post stent On aspirin, statin and metoprolol succinate GERD On omeprazole History of gout On allopurinol Urinary retention Has Bañuelos catheter Plan to follow with urology Patient planning to take off the catheter As per last cath was placed about 2 weeks ago Hypomagnesia replaced f/u labs Chronic kidney stage III Cr 0.8 Will follow labs DVT prophylaxis On Eliquis Disposition Telemetry Full code. History of Present Illness Chief Complaint: Left lower extremity cellulitis and sepsis Primary Care Provider: Yury Cash MD 88-year-old male with past medical significant for type 2 diabetes dyslipidemia, chronic gout, history of hypomagnesia, paroxysmal atrial fibrillation, abdominal aortic aneurysm, ascending aorta enlargement, history of peripheral vascular disease, CKD, CAD status post stent ,recently on October 08, 2024 had elective procedure left popliteal to dorsalis pedis bypass surgery at [facility] and was discharged on 10/16/2024 comes today with a cellulitis of the left lower extremity and fever at home. As per since yesterday she noticed redness in the left lower extremity and also spiking temperature. In the ER his temp is 38.4. Initial blood pressure soft but improved with the fluids. Initial lactic acid 2.9 and repeat is 1.8. Currently hemodynamics are okay. Has mild pain left lower extremity. Patient denies any chest pain or shortness of breath. No cough. No headache or runny nose. No sore throat. Appetite is down since last 2 weeks. Normal bowel and bladder movements. Denies abdominal pain. No nausea. Feeling cold. Past medical history. As mentioned above Past surgical history. Right popliteal to common plantar bypass surgery. Cardiac stent placement. Left popliteal to dorsalis pedis bypass surgery. FAMILY HISTORY: Significant for son has cancer, uncle has cancer, daughter has diabetes. SOCIAL HISTORY: . Quit smoking in 1989, smoked 1 pack a day for 37 years. No alcohol use. No drug use. Allergies Allergy/AdvReac Type Severity Reaction Status Date / Time No Known Allergies Allergy Mild Verified 08/12/22 21:07 Home Medications Medication Instructions Recorded Confirmed Type nitroglycerin 0.4 mg sublingual 0.4 mg sublingual .PRN PRN Chest 03/20/19 11/06/24 History tablet (Nitrostat) Pain omeprazole 20 mg capsule,delayed 20 mg PO DAILYBB 03/20/19 11/06/24 History release atorvastatin 40 mg tablet 40 mg PO DAILY 07/18/22 11/06/24 History gabapentin 600 mg tablet 600 mg PO TID 07/18/22 11/06/24 History allopurinol 300 mg tablet 300 mg PO HS 08/12/22 11/06/24 History aspirin 81 mg tablet,delayed 81 mg PO DAILY 08/12/22 11/06/24 History release multivitamin 1 tab PO DAILY 08/12/22 11/06/24 History acetaminophen 325 mg tablet 650 mg (2 x 325 mg) PO Q4H PRN 08/16/22 11/06/24 Rx fever or pain #30 tabs apixaban 5 mg tablet (Eliquis) 5 mg PO AMHS 11/06/24 11/06/24 History furosemide 40 mg tablet 40 mg PO QAM 11/06/24 11/06/24 History metformin 500 mg tablet,extended 1,000 mg PO AMPM 11/06/24 11/06/24 History release 24 hr metoprolol succinate 50 mg 150 mg PO AMHS 11/06/24 11/06/24 History tablet,extended release 24 hr mirabegron 50 mg tablet,extended 50 mg PO QAM 11/06/24 11/06/24 History release 24 hr tramadol 50 mg tablet 50 mg PO Q6 PRN Pain 11/06/24 11/06/24 History Past Med/Surg History Problem List (Updated 11/07/24 @ 08:58 by Mary Lou Portillo MD) Peripheral arterial disease Paroxysmal atrial fibrillation Chronic gout Diabetes mellitus type 2, controlled Dyslipidemia Acute UTI (Acute) Sepsis (Acute) Cellulitis of left lower extremity (Acute) Sepsis (Acute) Urinary tract infection (Acute) Elevated lactic acid level (Acute) Hypomagnesemia (Acute) Cellulitis of left lower extremity (Acute) Hematuria Atrial fibrillation with RVR GERD (gastroesophageal reflux disease) (Chronic) Diabetic polyneuropathy (Chronic) Urinary retention Cellulitis Diabetes mellitus 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) Dyslipidemia (Chronic) Medical History Atrial fibrillation with RVR Cellulitis COVID Diabetes mellitus Diabetic polyneuropathy GERD (gastroesophageal reflux disease) Hypoxia Recurrent falls Urinary retention Family History Other Family history non-contributory Social History Smoking Status: Never smoker Do You Dip or Chew Tobacco: No; Hx Alcohol Use: No Hx Substance Use: No Preferred Language: Czech Communication Ability: Effective 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 Head- atraumatic Eyes- PERRL. ENT- oropharynx clear Neck- supple, no JVD. Lungs- clear to auscultation no wheezing or crackles Heart- regular rhythm; no murmur, no gallop Abdomen- normal bowel sounds, soft, nontender, no distension Extremities- left lower extremity erythematous and warm. recent popliteal to dorsalis pedis by pass surgery site sutures seen. no drainage seen., Neuro- alert, oriented PERRL, no facial palsy; no dysarthria; obeys simple commands Results & Data Results & Data Vital Signs (Past 12 Hours) Vital Signs Temp Pulse Pulse Resp BP BP Pulse Ox 11/07/24 01:54 71 11/07/24 01:30 73 18 119/63 90 11/07/24 00:30 71 17 102/54 L 96 11/07/24 00:15 66 19 96/39 L 96 11/07/24 00:05 68 19 84/36 L 95 11/07/24 00:00 69 20 78/39 L 95 11/06/24 23:45 68 18 97/55 L 95 11/06/24 23:15 87 22 126/63 94 11/06/24 23:08 37.4 C 70 16 106/52 L 96 11/06/24 23:00 106/52 L 11/06/24 23:00 106/52 L 11/06/24 22:57 72 20 97 11/06/24 22:45 72 21 96 11/06/24 22:45 109/54 L 11/06/24 22:45 109/54 L 11/06/24 22:45 109/54 L 11/06/24 22:42 105/52 L 11/06/24 22:42 73 22 105/52 L 96 11/06/24 22:30 73 22 120/58 L 96 11/06/24 22:20 79 25 H 97 11/06/24 22:17 81 22 116/56 L 96 11/06/24 22:17 80 26 H 97 11/06/24 22:15 81 25 H 11/06/24 22:00 82 28 H 96 11/06/24 21:56 11/06/24 21:56 38.4 C H 80 22 112/59 L 96 11/06/24 21:54 82 O2 Del Method O2 Flow Rate 11/07/24 01:54 11/07/24 01:30 Nasal Cannula 2 11/07/24 00:30 Nasal Cannula 2 11/07/24 00:15 Nasal Cannula 2 11/07/24 00:05 Nasal Cannula 2 11/07/24 00:00 Nasal Cannula 2 11/06/24 23:45 Nasal Cannula 2 11/06/24 23:15 Nasal Cannula 2 11/06/24 23:08 Nasal Cannula 2 11/06/24 23:00 11/06/24 23:00 11/06/24 22:57 11/06/24 22:45 11/06/24 22:45 11/06/24 22:45 11/06/24 22:45 11/06/24 22:42 11/06/24 22:42 Room Air 11/06/24 22:30 Nasal Cannula 2 11/06/24 22:20 Nasal Cannula 2 11/06/24 22:17 Nasal Cannula 2 11/06/24 22:17 Nasal Cannula 2 11/06/24 22:15 11/06/24 22:00 11/06/24 21:56 Nasal Cannula 3 11/06/24 21:56 Nasal Cannula 3 11/06/24 21:54 Diagnostic Findings Laboratory Results WBC 10.72 K/ul (4.8-10.8) 11/06/24 22:03 RBC 4.01 M/uL (4.70-6.10) L 11/06/24 22:03 Hgb 10.3 g/dl (14.0-18.0) L 11/06/24 22:03 Hct 32.7 % (42.0-52.0) L 11/06/24 22:03 MCV 81.5 fL (80.0-100.0) 11/06/24 22:03 MCH 25.7 pg (25.0-34.0) 11/06/24 22:03 MCHC 31.5 g/dL (32.0-36.0) L 11/06/24 22:03 RDW Std Deviation 47.2 fL (36.4-46.3) H 11/06/24 22:03 RDW Coeff of Sandie 15.9 % (11.5-14.5) H 11/06/24 22:03 Plt Count 136 K/uL (130-400) 11/06/24 22:03 MPV 12.5 fL (9.4-12.4) H 11/06/24 22:03 Immature Gran % (Auto) 0.5 % 11/06/24 22:03 Neut % (Auto) 82.0 % 11/06/24 22:03 Lymph % (Auto) 7.2 % 11/06/24 22:03 Centre % (Auto) 10.1 % 11/06/24 22:03 Eos % (Auto) 0.0 % 11/06/24 22:03 Baso % (Auto) 0.2 % 11/06/24 22:03 Neut # (Auto) 8.80 K/uL (1.40-6.50) H 11/06/24 22:03 Lymph # (Auto) 0.77 K/uL (1.20-3.40) L 11/06/24 22:03 Centre # (Auto) 1.08 K/uL (0.11-0.59) H 11/06/24 22:03 Eos # (Auto) 0.00 K/uL (0.00-0.50) 11/06/24 22:03 Baso # (Auto) 0.02 K/uL (0.00-0.20) 11/06/24 22:03 Immature Gran # (Auto) 0.05 K/uL (0.01-0.20) 11/06/24 22:03 Sodium 134 mmol/L (136-145) L 11/06/24 22:03 Potassium 4.1 mmol/L (3.5-5.1) 11/06/24 22:03 Chloride 97 mmol/L (98-107) L 11/06/24 22:03 Carbon Dioxide 26 mmol/L (21-32) 11/06/24 22:03 Anion Gap 11 (3-11) 11/06/24 22:03 BUN 18 mg/dl (6-23) 11/06/24 22:03 Creatinine 0.98 mg/dl (0.6-1.4) 11/06/24 22:03 Est Cr Clr Drug Dosing 63.0 ml/min 11/06/24 22:03 eGFR 74.63 11/06/24 22:03 BUN/Creatinine Ratio 18.4 (10-20) 11/06/24 22:03 Glucose 188 mg/dl (70-99(Fasting)) H 11/06/24 22:03 Lactate 1.8 mmol/L (0.4-2.0) 11/06/24 23:54 Calcium 9.0 mg/dl (8.6-10.3) 11/06/24 22:03 Magnesium 1.2 mg/dl (1.7-2.4) L 11/06/24 22:03 Total Bilirubin 1.0 mg/dl (0.2-1.0) 11/06/24 22:03 Direct Bilirubin 0.2 mg/dl (0-0.2) 11/06/24 22:03 AST 19 U/L (13-39) 11/06/24 22:03 ALT 13 U/L (7-52) 11/06/24 22:03 Alkaline Phosphatase 69 U/L (34-104) 11/06/24 22:03 Troponin I High Sens 49.8 pg/ml (0-20) H D 11/06/24 23:54 Total Protein 6.7 gm/dl (6.0-8.3) 11/06/24 22:03 Albumin 4.0 gm/dl (3.4-5.0) 11/06/24 22:03 Procalcitonin 0.11 ng/ml (0-0.5) 11/06/24 22:03 Urine Color Dark Yellow 11/06/24 23:09 Urine Appearance Clear (Clear) 11/06/24 23:09 Urine pH 5.0 (4.5-7.5) 11/06/24 23:09 Ur Specific [place] 1.039 (1.000-1.030) H 11/06/24 23:09 Urine Protein 2+ (Negative) H 11/06/24 23:09 Urine Glucose (UA) Negative (Negative) 11/06/24 23:09 Urine Ketones Trace (Negative) H 11/06/24 23:09 Urine Blood 2+ (Negative) H 11/06/24 23:09 Urine Nitrite Negative (Negative) 11/06/24 23:09 Urine Bilirubin Negative (Negative) 11/06/24 23:09 Urine Urobilinogen Negative (Negative) 11/06/24 23:09 Ur Leukocyte Esterase Negative (Negative) 11/06/24 23:09 Urine WBC (Auto) 21-50 /hpf (0-5) H 11/06/24 23:09 Urine RBC (Auto) >20 /hpf (0-2) H 11/06/24 23:09 U Hyaline Cast (Auto) 3-5 /lpf (0-2) H 11/06/24 23:09 U Epithel Cells (Auto) 3-5 /hpf (0-2) H 11/06/24 23:09 Urine Bacteria (Auto) None Seen (None Seen) 11/06/24 23:09 Adenovirus (PCR) Not Detected (NotDetected) 11/06/24 21:05 B. pertussis DNA (PCR) Not Detected (NotDetected) 11/06/24 21:05 B.parapertussis DNA PCR Not Detected (NotDetected) 11/06/24 21:05 C. pneumoniae DNA (PCR) Not Detected (NotDetected) 11/06/24 21:05 Coronavirus OC43 (PCR) Not Detected (NotDetected) 11/06/24 21:05 Coronavirus HKU1 (PCR) Not Detected (NotDetected) 11/06/24 21:05 Coronavirus 229E (PCR) Not Detected (NotDetected) 11/06/24 21:05 SARS-CoV-2 (PCR) Not Detected (NotDetected) 11/06/24 21:05 Coronavirus NL63 (PCR) Not Detected (NotDetected) 11/06/24 21:05 Human Metapneumovir PCR Not Detected (NotDetected) 11/06/24 21:05 Influenza Type A (PCR) Not Detected (NotDetected) 11/06/24 21:05 Influenza Type B (PCR) Not Detected (NotDetected) 11/06/24 21:05 M. pneumoniae (PCR) Not Detected (NotDetected) 11/06/24 21:05 Parainfluenza 1 (PCR) Not Detected (NotDetected) 11/06/24 21:05 Parainfluenza 2 (PCR) Not Detected (NotDetected) 11/06/24 21:05 Parainfluenza 3 (PCR) Not Detected (NotDetected) 11/06/24 21:05 Parainfluenza 4 (PCR) Not Detected (NotDetected) 11/06/24 21:05 RSV (PCR) Not Detected (NotDetected) 11/06/24 21:05 Entero/Rhino (PCR) Not Detected (NotDetected) 11/06/24 21:05 Impressions Chest X-Ray 11/06/24 22:04 Exam(s): XR CXR 1 VIEW EXAM: XR Chest, 1 View CLINICAL HISTORY: Reason for exam: Sepsis. TECHNIQUE: Frontal view of the chest. COMPARISON: August 12, 2022 FINDINGS: Lungs: Mild vascular congestion without overt edema or acute focal infiltrate. Pleural space: Unremarkable. No pneumothorax. Heart: The cardiac silhouette is mildly enlarged. Mediastinum: Unremarkable. Normal mediastinal contour. Bones/joints: There are several old healed left rib fractures, unchanged. Vasculature: The aortic arch is calcified. Upper abdomen: There is no pneumoperitoneum under the diaphragm. Other findings: The patient is rotated to the right. IMPRESSION: 1. The cardiac silhouette is mildly enlarged. 2. Mild vascular congestion without overt edema or acute focal infiltrate. Electronically signed by: Elijah Echols MD 11/06/24 23:33 PM Venous Doppler Study 11/06/24 22:04 EXAM: US venous doppler LE LT CLINICAL HISTORY: RECENT LLE BYPASS GRAFT. SCARRING MED UPPER THIGH, GSV VEIN HARVESTED (LIMITED HISTORY, PT POOR HISTORIAN, PRESENTS TO ER WITH INCREASED CONFUSION) TECHNIQUE: Ultrasound examination of left lower extremity veins was performed in real time and duplex. One or more of the following were performed- spectral analysis, resistive index, waveform analysis, and pulsed Doppler. COMPARISON: None. FINDINGS: Normal phasic, non-pulsatile and spontaneous flow is noted in left GSV, common femoral, superficial femoral, popliteal, anterior tibial, posterior tibial and peroneal veins. Visualized veins of left lower extremity demonstrate normal compressibility. No sonographic evidence of acute deep vein thrombosis (DVT) is detected in the visualized veins of lower extremity. Compression and Augmentation: All evaluated veins compress fully with applied transducer pressure. Augmentation of venous flow is noted with distal compression. Additional Findings: No evidence of intraluminal thrombus. Evidence of left knee end of thigh scar heterogenous irregular shaped nonvascular complex area is noted measuring 9.7 x 2.0 cm most likely postoperative collection, edema and inflammatory changes/scarring tissue. IMPRESSION: 1. No sonographic evidence of acute DVT detected at the time of examination. 2. Evidence of left knee end of thigh scar heterogenous irregular shaped nonvascular complex area is noted measuring 9.7 x 2.0 cm most likely postoperative collection, edema and inflammatory changes/scarring tissue. 3. Please correlate clinically. Disclaimer: DVT could be missed early in the disease when clot burden is minimal. For patients with moderate and high pretest probability of DVT and negative ultrasound, the [employer] clinical guidelines recommend testing with a D-dimer assay or repeat ultrasound in 5-7 days. If symptoms worsen, the Society of radiologists in ultrasound recommends repeating ultrasound even earlier. Electronically signed by Masha Green 11-07-2024 04:44 AM ECG Additional Comments: ECG. Normal sinus rhythm rate of 81. Right bundle branch block. T wave abnormality inferior leads. QTc 485 Code Status & VTE Plan VTE Prophylaxis Plan VTE Prophylaxis will be ordered: Yes
--- NOTE | 2024-11-07 04:45 | Ultrasound Report ---
EXAM: US venous doppler LE LT CLINICAL HISTORY: RECENT LLE BYPASS GRAFT. SCARRING MED UPPER THIGH, GSV VEIN HARVESTED (LIMITED HISTORY, PT POOR HISTORIAN, PRESENTS TO ER WITH INCREASED CONFUSION) TECHNIQUE: Ultrasound examination of left lower extremity veins was performed in real time and duplex. One or more of the following were performed- spectral analysis, resistive index, waveform analysis, and pulsed Doppler. COMPARISON: None. FINDINGS: Normal phasic, non-pulsatile and spontaneous flow is noted in left GSV, common femoral, superficial femoral, popliteal, anterior tibial, posterior tibial and peroneal veins. Visualized veins of left lower extremity demonstrate normal compressibility. No sonographic evidence of acute deep vein thrombosis (DVT) is detected in the visualized veins of lower extremity. Compression and Augmentation: All evaluated veins compress fully with applied transducer pressure. Augmentation of venous flow is noted with distal compression. Additional Findings: No evidence of intraluminal thrombus. Evidence of left knee end of thigh scar heterogenous irregular shaped nonvascular complex area is noted measuring 9.7 x 2.0 cm most likely postoperative collection, edema and inflammatory changes/scarring tissue. IMPRESSION: 1. No sonographic evidence of acute DVT detected at the time of examination. 2. Evidence of left knee end of thigh scar heterogenous irregular shaped nonvascular complex area is noted measuring 9.7 x 2.0 cm most likely postoperative collection, edema and inflammatory changes/scarring tissue. 3. Please correlate clinically. Disclaimer: DVT could be missed early in the disease when clot burden is minimal. For patients with moderate and high pretest probability of DVT and negative ultrasound, the [employer] clinical guidelines recommend testing with a D-dimer assay or repeat ultrasound in 5-7 days. If symptoms worsen, the Society of radiologists in ultrasound recommends repeating ultrasound even earlier. Electronically signed by Masha Green 11-07-2024 04:44 AM
[2024-11-07] MEDS ORDERED: DEXTROSE 50% 50 ML SYRINGE IV PRN (05:30)
[2024-11-07] MEDS ORDERED: NITROGLYCERIN SL 0.4 MG/TAB TAB SL PRN (05:30)
[2024-11-07] MEDS ORDERED: CARBOHYDRATES FOR HYPOGLYCEMIA PO PRN (05:30)
[2024-11-07] MEDS ORDERED: GLUCOSE 10 TAB/TUBE PO PRN (05:30)
[2024-11-07] MEDS ORDERED: GLUCAGON FOR INJ 1 MG VIAL SQ PRN (05:30)
[2024-11-07] MEDS ORDERED: GLUCOSE 40% GEL 15 GM TUBE PO PRN (05:30)
--- NOTE | 2024-11-07 06:05 | Ultrasound Report ---
EXAM: US arterial duplex LE LT CLINICAL HISTORY: HX: no priors at this facility. Recent bypass graft left lower limb extremity. Redness around stitches. TECHNIQUE: Ultrasound examination of the bilateral lower extremities arteries with ankle brachial indices was performed in real time and duplex. One or more of the following were performed- spectral analysis, resistive index, waveform analysis, and pulsed Doppler. COMPARISON: None. FINDINGS: (Stitches on left medial mid-calf, left distal lateral calf and dorsum left foot along with patient movement making examination limited). 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 Velocities gradually increased throughout the left superficial femoral artery but no focal areas of change in velocities are detected. Additional Findings: Popliteal artery distal to the graft shows monophasic flow with spectral broadening with peak systolic velocity of 62.5 cm/s An ill-defined irregular collection is noted in the medial popliteal fossa measuring 4.1 x 8.9 x 2.2 cm with overlying inflammatory changes and subcutaneous edema Left dorsalis pedis proximal to the graft shows reverse flow with peak systolic velocity of 128 cm/s Vessel Flow Pattern Right Peak Velocity Right (cm/sec) Flow Pattern Left Peak Velocity Left (cm/sec) Common Femoral Artery (POWER MARKETER) - - Biphasic 148 Deep Femoral Artery (DPA) - - Monophasic with spectral broadening 66 Superficial Femoral Artery (SFA) - - Biphasic in proximal Monophasic in mid SFA Monophasic with spectral broadening in the distal SFA 58 in proximal SFA 186 in the mid SFA 260 in distal SFA Popliteal Artery (POP A) - - Monophasic with spectral broadening in proximal middle and distal popliteal artery 135 in proximal left popliteal artery 99 in mid left popliteal artery 74 mm distal left popliteal artery Posterior Tibial Artery (MARINE SURVEYOR) - Monophasic flow in with spectral broadening in proximal, middle and distal left posterior tibial artery 101 and left posterior tibial artery proximal 185 in left posterior tibial artery middle 35 in left posterior tibial artery distal part Peroneal artery - Monophasic flow with spectral broadening in left peroneal artery proximal, middle and distal part 61 in proximal left peroneal artery 120 in medial left peroneal artery 101 in distal left peroneal artery Anterior tibial artery (AVI) Monophasic flow with spectral broadening in the proximal left AVI 106 in proximal left AVI Dorsalis Pedis Artery (DPA) - Monophasic flow with spectral broadening 51 IMPRESSION: 1. 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 2. A patent, vascular graft is seen between the left distal popliteal artery just above the triple-vessel runoff and the left dorsalis pedis artery showing high vascular velocities measuring 136.9 cm/s and also the velocities are increased in medial posterior tibial artery and dorsalis pedis artery distal to the anastomosis. High flow velocities suggest mild luminal narrowing however no evidence of thrombosis. 3. Velocities gradually increased throughout the left superficial femoral artery but no focal areas of change in velocities are detected. 4. An ill-defined post-surgical collection is noted in the medial popliteal fossa measuring 4.1 x 8.9 x 2.2 cm with overlying inflammatory changes and subcutaneous edema 5. Further evaluation with CT/MR angiography can be recommended if clinically warranted. Electronically signed by Masha Green 11-07-2024 06:05 AM
[2024-11-07] MEDS: SODIUM CHLORIDE 0.9% 1,000 ML IV SCH (06:37)
--- OUTSIDE RECORDS SUMMARY | 2024-11-07 07:56 | External Medical Summary | Summary of Care ---
Author Name Unknown Organization [facility] Address [address] [place] [address] Phone [phone] Care Team Providers Care Applied Marine Physics Professor Name Role Phone Yury Cash MD [facility] Reason for Visit * Reason Onset Date Comments Appointment 10/17/2024 Advice 10/17/2024 Appointment 10/17/2024 Encounter Details Date Type Department Care Team (Late st Contact Info) Description 10/17/2024 Telephone Urology, [place] [address], [place] [id number] Services, Scheduling [address] [place] [address] Appointment; Advice; Appointment Allergies No known active allergiesdocumented as of this encounter (statuses as of 11/05/2024) Medications aspirin enteric coated 81 MG TBEC Take 1 Tablet by mouth in the morning. 05/14/20 16 Active ONETOUCH DELICA LANCETS FINE MISC Check blood sugars once daily, E11.9, not using insulin, 100 Each 3 11/24/19 19 Active Multiple Vitamin (ONE-A-DAY MENS) Tablet Take 1 Tablet by mouth in the morning. Active OneTouch Ultra Blue In Vitro Strip (Glucose Blood) USE 1 STRIP TO CHECK GLUCOSE ONCE DAILY, dx E11.40 100 Strip 3 10/04/20 21 Active Allopurinol 300 MG Oral Tablet (Zyloprim) TAKE ONE TABLET BY MOUTH EVERY DAY 90 Tablet 3 4 9:50 AM EDT 11/17/19 24 2024 Active OneTouch Ultra 2 w/Device Kit Check blood sugars once daily 1 Kit 4 11:32 AM EDT 01/31/20 24 Active Atorvastatin Calcium 40 MG Oral Tablet (Lipitor)Indica tions:Dyslipide michell, goal LDL below 100 TAKE ONE TABLET BY MOUTH EVERY DAY 100 Tablet 1 4 3:21 PM EST 07/16/20 24 Active Furosemide 40 MG Oral Tablet (Lasix) Take 1 Tablet by mouth in the morning. 30 Tablet 3 08/03/20 24 Active Acetaminophen 500 MG Oral Tablet (Tylenol) Take 1 Tablet by mouth every 6 hours as needed. Active Gabapentin 600 MG Oral Tablet (Neurontin)Charlene cations:Type 2 diabetes mellitus with diabetic neuropathy, without long-term current use of insulin (HCC) TAKE ONE TABLET BY MOUTH THREE TIMES A DAY 270 Tablet 1 4 2:24 PM EDT 08/14/20 24 2024 Active Apixaban 5 MG Oral Tablet (Eliquis)Indica tions:Paroxysma l atrial fibrillation (HCC) Take 1 Tablet by mouth in the morning and 1 Tablet before bedtime. 180 Tablet 3 08/14/20 24 Active metFORMIN HCl ER 500 MG Oral Tablet Extended Release 24 Hour (Glucophage XR)Indications: Type 2 diabetes mellitus with diabetic neuropathy, without long-term current use of insulin (HCC) Take 2 Tablets by mouth 2 times a day with morning and evening meals. 400 Tablet 1 4 10:41 AM EST 09/17/20 24 Active Mirabegron ER 50 MG Oral Tablet Extended Release 24 Hour (Myrbetriq)Charlene cations:Urge incontinence TAKE 1 TABLET BY MOUTH IN THE MORNING 90 Tablet 09/26/20 24 Active Docusate Sodium 100 MG Oral Tablet Take 1 Tablet by mouth as needed for Constipation. Active Omeprazole 20 MG Oral Capsule Delayed Release (PriLOSEC)Indic ations:Dysphagi a TAKE 1 CAPSULE BY MOUTH IN THE MORNING. TAKE 1 HOUR BEFORE THE FIRST MEAL OF THE DAY. 90 Capsule 2 11/17/19 24 2024 Discontinued Metoprolol Succinate ER 100 MG Oral Tablet Extended Release 24 Hour (toPROL XL) Take 1 Tablet by mouth in the morning and 1 Tablet before bedtime. 60 Tablet 3 08/02/20 24 2024 Discontinued(M edication List Clean Up) Bisacodyl 10 MG Rectal Suppository (Dulcolax) Administer 1 Suppository into the rectum daily as needed for Constipation. 2023 Discontinued(M edication List Clean Up) HYDROcodone-Isaac taminophen 10-325 MG Oral Tablet Take 1 Tablet by mouth 2 times a day as needed for Pain, Severe. 20 Tablet 10/01/202023 Discontinued(M edication List Clean Up) documented as of this encounter (statuses as of 11/05/2024) Active Problems Problem Noted Date Diagnosed Date Nonrheumatic aortic valve stenosis 08/29/2024 Ascending aorta enlargement 08/29/2024 Aneurysm of ascending aorta without rupture 07/31 Assessment & Plan (08/17/2024 11:54 AM EDT): Enlarged aortic root, 5 cm ascending aortic aneurysm via December 20, [address]-discussed with Cardiology and plan to manage conservatively. Old myocardial infarct 07/30/2024 History of tonsillectomy 12/22/2023 Hypomagnesemia 12/22/2023 Skin ulcer of right ankle, limited to breakdown of skin 09/27/2023 Atherosclerosis of [place] co ronary artery without angina pectoris 02/09/2023 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 08/23/2022 PVD (peripheral vascular disease) 12/16/2021 Overview (12/22/2023): Last Assessment & Plan: Patient sent back by Dr. Brown. Foot is still discolored and he has what sounds like rest pain although his gross studies would tend to say that his foot perfusion is largely okay. It does not appear to be atheroembolism but I did offer him an angiogram to see if there is something more missing. He will call us back and let us know if he would like to do this Last Assessment & Plan: The patient has a painful left foot with what looks to be a small ulceration over his left metatarsal. In addition the skin on much of the forefoot looks excoriated having said that his arterial circulation is close to normal on this side and as such I do not think the situation would benefit from any revascularization. I will put him on antibiotics to tide him over until his next foot evaluation 3 weeks from today. His right distal circulation is mildly impaired but he has no symptoms or signs that would demand intervention at this time Last Assessment & Plan: Patient sent back by Dr. Brown. Foot is still discolored and he has what sounds like rest pain although his gross studies would tend to say that his foot perfusion is largely okay. It does not appear to be atheroembolism but I did offer him an angiogram to see if there is something more missing. He will call us back and let us know if he would like to do this CKD (chronic kidney disease) stage 2, GFR 60-89 ml/min 08/10/2021 Overview (08/08/2024): 08/01/24 06:50 EGFR: 75 08/02/24 06:53 EGFR: 79 08/06/24 11:38 EGFR: 73 Per CKD protocol Abdominal aortic aneurysm (AAA) without rupture 06/06/2020 Assessment & Plan (08/17/2024 11:53 AM EDT): Followed by vascular Unspecified atherosclerosis of [place] arteries of extremities, bilateral legs 02/15/2019 Assessment & Plan (09/23/2024 11:41 PM EST): Follows with Dr Pfeiffer vascular surgery [facility] Surgery 10/08 Plan a left popliteal to dorsalis pedis bypass likely with the more proximal greater saphenous vein being transposed. Assessment & Plan (08/17/2024 11:53 AM EDT): He reports he saw vascular yesterday and plans for surgical procedure/angioplasty to the affected extremity. 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, without long-term current use of insulin 09/08/2017 Assessment & Plan (09/23/2024 11:41 PM EST): "RED FLAG" Diabetic symptoms: Excessive Thirst, Confusion, and Vision Changes Goal HgbA1c <8 Diabetic Complications Vascular (examples: PVD, PAD, CAD, CVA) Neurologic (example: Peripheral Neuropathy) Renal (example: CKD, Proteinuria, Dialysis) Recurrent Infections (example: Cellulitis, UTI) Chronic Wounds Medication Regimen Metformin DM Secondary Prevention Moderate-High Intensity Statin Additional Comments Hemoglobin AIC Results: Lab Results Component Value Date/Time HEMOGLOBIN A1C - [facility] 8.1 (H) 08/14/2024 09:59 AM HEMOGLOBIN A1C - [facility] 7.6 (H) 01/06/2024 07:28 AM HEMOGLOBIN A1C - [facility] 7.5 (H) 12/23/2023 05:51 AM HEMOGLOBIN A1C - [facility] 7.1 (H) 05/28/2020 08:46 AM HEMOGLOBIN A1C - [facility] 6.9 (H) 11/14/2019 03:56 PM HEMOGLOBIN A1C - [facility] 7.0 (H) 06/27/2019 07:13 AM HEMOGLOBIN A1C POCT - [facility] 7.1 (H) 07/19/2024 11:07 AM S/P right coronary artery (RCA) stent placement 09/20/2016 Paroxysmal atrial fibrillation 05/17/2016 Assessment & Plan (09/23/2024 11:41 PM EST): Rate controlled Continue metoprolol with eliquis Assessment & Plan (08/17/2024 11:52 AM EDT): Rate controlled today on metoprolol Continues apixaban stroke prophylaxis 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 10/14/2014 Hx of nonmelanoma skin cancer 08/21/2012 Overview (08/21/2012): L posterior shoulder BCC 12/2011 History of malignant melanoma of skin 08/16/2011 Overview (08/16/2011): Back - s, no SLN, unknown depth Dyslipidemia, goal LDL below 70 09/11/2010 Assessment & Plan (09/23/2024 11:41 PM EST): Continue statin After cataract not obscuring vision 04/07/2009 Overview (08/23/2017): ICD-10 update of inactive term documented as of this encounter (statuses as of 11/05/2024) Resolved Problems Problem Noted Date Diagnosed Date Resolved Date Paroxysmal A-fib 08/29/2024 09/20/2024 Overview (09/20/2024): duplicate Coronary artery disease invo lving [place] coronary artery of [place] heart without angina pectoris 08/29/2024 09/20/2024 Overview (09/20/2024): duplicate Atrial fibrillation with RVR 07/30/2024 08/08/2024 Cellulitis of left lower extremity 07/30/2024 08/08/2024 Physical deconditioning 12/27/2023 10/0 07/2024 Ambulatory dysfunction 12/27/202308/08 Elevated troponin 12/23/2023 08/08/2024 Generalized weakness 12/23/2023 024 Encephalopathy acute 12/23/2023 024 Cellulitis 12/22/2023 08/08/2024 COVID 12/22/2023 08/08/2024 Elevated lactic acid level 12/22/2023 1 Fever, unknown origin 12/22/20232023 Hematuria 12/22/2023 08/08/2024 Hypoxia 12/22/2023 08/08/2024 Recurrent falls 12/22/2023 08/08/2024 Retention of urine 12/22/2023 Urinary tract infection 12/22/2023/07/2024 Pneumonia of left lower lobe due to infectious organism 12/22/2023 08/06/2024 Cellulitis of left lower extremity 12/23/2021 12/25/2023 Type 2 diabetes mellitus wit h hemoglobin A1c goal of less than 7.5% 11/14/2019 01/14/2021 Skin ulcer of toe of left fo ot, limited to breakdown of skin 10/13/2018 02/15/2019 Coronary artery disease invo lving [place] heart without angina pectoris 06/01/2018 11/10/2021 DM type 2 causing neurological disease 01/24/2018 01/14/2021 Type 2 diabetes mellitus wit h diabetic nephropathy, without long-term current use of insulin 09/08/2017 09/08/2017 Atherosclerotic heart diseas e of [place] coronary artery with unspecified angina pectoris 09/08/2017 11/15/2017 Stricture of artery 09/08/2017 11/15/19 18 Paroxysmal A-fib 05/17/2016 11/14/2019 Sepsis 05/17/2016 04/28/2017 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 11/10/2021 Atrial fibrillation (HCC) (a ka ATRIAL FIBRILLATION (HCC)) 05/14/2016 04/28/2017 DM type 2 causing neurological disease 08/22/2013 01/24/2018 Type 2 diabetes mellitus wit h hemoglobin A1c goal of less than 7.0% 09/20/2011 11/14/2019 Overview (02/24/2016): ICD-10 update of inactive term Rotator cuff syndrome 12/03/20102021 Vitreous degeneration 04/01/20102021 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 11/10/2021 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 11/14/2019 Type 2 diabetes mellitus wit h hemoglobin A1c goal of 7.0%-8.0% 09/20/2011 Overview (02/26/2016): ICD-10 update of inactive term documented as of this encounter (statuses as of 11/05/2024) Immunizations Name Administration Dates Next Due COVID-19 mRNA, LNP-s, No Pre serve, 2-Dose Series (Quandora) 08/13/2021,01/22/2021,12/27/2020 Covid-19, Mrna, Lnp-s, Pf, B ivalent, 30 Mcg, IM, 12 yrs and above (Quandora) 11/09/2022 Pneumococcal Conjugate Vacc, 13 Valent (Prevnar) 04/21/2015 Pneumococcal Polysaccharide PPV23 (Pneumovax) 09/07/2010 Season Influenza, Quad, PF, Adjuvanted, 65+ Yrs, IM (FLUAD) 07/12/2020 Seasonal Influenza Vac., MDV , IM, 0.5 mL (Fluzone) 07/07/2016,09/16/2014,08/22/2013,08/07,07/12/2011,09/07/2010 Seasonal Influenza, High Dos e, Trivalent, PF, IM (Fluzone HD) 07/19/2024 Seasonal Influenza, PF, 6 M & above, IM , (FluLaval or Fluzone) 09/08/2017 Seasonal Influenza, Quadriva lent Hd (Fluzone Hd) 07/13/2023,07/02/2022 Seasonal Influenza, Quadriva lent, No Preserve, IM 07/27/2018,09/15/2015 Seasonal Influenza, Trivalen t, Adjuvanted, 65+ YRS, PF, (Fluad) 07/04/2019 TDAP (age 10 and older)(Boostrix) 04/02/2023 TDAP, Age 7 and older, IM (Adacel) 03/11/2012 Varicella Zoster Vaccine (Adult) 04/08/2014 Zoster Vaccine Recombinant (Shingrix) 05/07/2021 ,11/16/2019 documented as of this encounter Social History Tobacco Use Types Packs/Day Years Used Date Smoking Tobacco: Former Cigarettes 1 37 0 10/31/1952 - 10/31/1989 Cigars Passive Smoke Exposure: Past Smokeless Tobacco: Never Comments:Started smoking age - 17 - 18 Alcohol Use Standard Drinks/Week Comments No 0 (1 standard drink = 0.6 oz pur e alcohol) PHQ-2 Answer Date Recorded PHQ Adult Total Score 7 08/06/2024 Hunger Vital Sign Answer Date Recorded Within the past 12 months, y ou worried that your food would run out before you got the money to buy more. Never true 08/07/20 24 Within the past 12 months, t he food you bought just didn't last and you didn't have money to get more. Never true 08/07/2024 Childcare Answer Date Recorded Do you feel overwhelmed with taking care of a child, family member or friend? No 08/07/2024 Does your family need help f inding childcare? (Household - for ages 0-17 years) Not on file 08/07/2024 Clothing Answer Date Recorded Have you been unable to get clothing when it was really needed? No 08/07/2024 Is your family able to get c lothes or diapers when needed? (Household - for ages 0-17 years) Not on file 08/07/2024 Personal Safety Answer Date Recorded Do you feel unsafe or have concerns for your saf ety? No 08/07/2024 Do you have concerns for you r family's safety? (Household - for ages 0-17 years) Not on file 08/07/2024 Utilities Answer Date Recorded Do you have trouble paying y our heating, water, or electric bill? Yes 08/07/2024 Is your family able to pay t he heat, water, or electric bill? (Household - for ages 0-17 years) Not on file 08/07/2024 Does your family have access to good internet? (Household - for ages 0-17 years) Not on file 08/07/2024 Employment Status Answer Date Recorded Are you unemployed or without regular income? No 08/07/2024 Does the household have a re gular source of income? (Household - for ages 0-17 years) Not on file 08/07/2024 Social Connections Answer Date Recorded How often do you feel lonely or isolated from th ose around you? Never 08/07/2024 Financial Resource Strain Answer Date R ecorded Do you have any trouble payi ng for your medications, or do you think you might in the future? No 08/07/2024 Does your family have troubl e paying for medicine? (Household - for ages 0-17 years) Not on file 08/07/2024 Transportation Needs Answer Date Record ed READ ONLY Do you have troubl e getting a ride to medical visits or work? Never True 08/07/2024 Does your family have a hard time getting a ride to doctors visits? (Household - for ages 0-17 years) Not on file 08/07/2024 Has lack of transportation k ept you from medical appointments, meetings, work, or from getting things needed for daily living? Check all that apply. No 08/07/2024 Do you (or your family) have trouble finding or paying for a ride (transportation)? (Household - for ages 0-17 years) Not on file 08/07/2024 Housing Stability Answer Date Recorded Do you currently live in a s helter or have no steady place to sleep at night? No 08/07/2024 READ ONLY Do you think you a re at risk of becoming homeless? No 08/07/2024 Does your family worry about paying for your home or becoming homeless? (Household - for ages 0-17 years) Not on file 1 Are you homeless or worried that you might be in the future? No 08/07/2024 Are you (or your family) roxy eless or worried that you might be in the future? (Household - for ages 0-17 years) Not on file Food Insecurity Answer Date Recorded Do you need food for this week? Yes 08/07/2024 Are you able to get enough f ood for your family? (Household - for ages 0-17 years) Not on file 08/07/2024 Does your family need food t his week? (Household - for ages 0-17 years) Not on file 08/07/2024 Do you always have enough fo od for your family? 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 Answer Date of Assessment Author No 07/30/2024 9:07 AM Moses Hernandes RN * Are you blind or do you have serious difficulty seeing, even when wearing glasses? Answer Date of Assessment Author No 07/30/2024 9:07 AM SAMANTHAT Moses Villafana RN * Do you have serious difficulty walking or climbing stairs? (5 years old or older) Answer Date of Assessment Author Yes 07/30/2024 9:07 AM Moses Hernandes RN * Do you have difficulty dressing or bathing? (5 years old or older) Answer Date of Assessment Author No 07/30/2024 9:07 AM Moses Hernandes RN * Because of a physical, mental, or emotional condition, do you have difficulty doing errands alone such as visiting a doctors office or shopping? (15 years old or older) Answer Date of Assessment Author No 07/30/2024 9:07 AM Moses Hernandes RN documented as of this encounter Mental Status * Because of a physical, mental, or emotional condition, do you have serious difficulty concentrating, remembering, or making decisions? (5 years old or older) Answer Entry Date Author No 07/30/2024 9:07 AM EDT Moses Villafana RN documented in this encounter Miscellaneous Notes * Telephone Encounter - Odilia Boo OSA - 11/05/2024 7:42 AM EST Please call patients back she stated they had to cancel today due to weather and patient frances ge in that needs out and there is nothing soon for appointment * Telephone Encounter - Jami Azul OSA - 10/18/2024 11:58 AM EST Spoke with pts to schedule. Thank you YEISON Honeycutt 11:58 AM 10/18/2024 * Telephone Encounter - Estephania Cortez OSA - 10/17/2024 9:13 AM EST Sonja calling from [facility] Vascular on Pt. Behalf Pt was recently hospitalized and discharged with a catheter. Caller asking for an apt for Pt. To be seen by Urology for catheter management. No apts available on provider schedules until December 2024, Pt. Needs sooner apt due to catheter being in place. Will need call back to schedule or advise what to do next. documented in this encounter Plan of Treatment Upcoming Encounters Date Type Department Care Team (Late st Contact Info) Description 11/20/2024 8:30 AM EST Home Visit [facility] [place], [facility] [address] [address] Dhara Sky RN [address] [address] 11/21/2024 8:30 AM EST Office Visit Cardiology, [facility] [address] [facility] [address] [place] [address] Sajan Griffith PA-C [address] [place] [address] 01/28/2025 7:10 AM EDT Laboratory Laboratory Patient Service [address] [phone] [address] 02/04/2025 8:20 AM EDT Office Visit [facility] [address] [place] [address] Cristina Ayala PA-C [address] [place] [address] 05/29/2025 9:45 AM EDT Office Visit [facility] [address] [place], [place] [id number] Constantino Weber DO [address] [place] [address] Health Maintenance Due Date Last Done Comments Colonoscopy 01/20/2016 01/19/2011, 12/29, 01/07/2011, Additional history exists Albumin/Creatinine Ratio 05/07/20232 022, 04/11/2021, 05/28/2020, Additional history exists COVID-19 Vaccine ( season) 2024 11/09/2022, 08/13/2021, 01/22/2021, Additional history exists HbA1c 05/01/2025 11/01/2024, 1207/2024, 10/01/2024, Additional history exists Diabetic Eye Exam 06/18/2025 06/18/2024, , 05/25/2024, Additional history exists Adult Wellness Visit 08/06/2025 08/06/2024 Depression Screening 08/06/2025 08/06/2024, 04/21/20 15 Diabetic Foot Exam 08/10/2025 08/10/2024, 0 06/08/2023, 08/23/2022, Additional history exists B-12 11/01/2025 11/01/2024, 04/30, 03/07/2024, Additional history exists DTap/Tdap Vaccines (3 - Td or Tdap) 04/02/2033 04/02/2023, 03/11/2012 Pneumococcal Vaccine: 50+ Years Completed 04/21/2015, 09/07/2010 RETIRED - COLONOSCOPY-EVERY 5 YRS AGES 18-100 Discontinued 03/22/2016 (Declined), 01/19/2011, 01/13/2011, Additional history exists Zoster Vaccines Completed 05/07/2021, 10/31, 04/08/2014 Influenza Vaccine (FLU shot) Completed 07/19/2024, 07/13/2023, 07/02/2022, Additional history exists HPV (Gardasil) Vaccine Aged Out No lo nger eligible based on patient's age to complete this topic Hepatitis B Vaccine Aged Out No longe r eligible based on patient's age to complete this topic MENINGOCOCCAL (MENACTRA/MENVEO) Aged Out No longer eligible based on patient's age to complete this topic documented as of this encounter Medical Devices Not on filedocumented as of this encounter Advance Directives * Full Code (Latest Code Status on File) Date Activated Date Inactivated Comments 07/30/2024 8:15 AM 08/02/2024 6:04 PM This order r eflects the patients wishes and were consensually agreed upon. Question Answer Comments Discussion of Advance Directives occurred with: Patient Does the patient have a Living Will? No Does the patient have Health Care Power of Attor simone? No * Full Code Date Activated Date Inactivated Comments 12/27/2023 11:32 AM 12/30/2023 7:49 PM This order r eflects the patients wishes and were consensually agreed upon. Question Answer Comments Discussion of Advance Directives occurred with: Patient Does the patient have a Living Will? No Does the patient have Health Care Power of Attor simone? No * Full Code Date Activated Date Inactivated Comments 12/22/2023 10:29 PM 12/27/2023 11:09 AM This order reflects the patients wishes and were consensually agreed upon. Question Answer Comments Discussion of Advance Directives occurred with: Patient Does the patient have a Living Will? No Does the patient have Health Care Power of Attor simone? No * Full Code Date Activated Date Inactivated Comments 03/11/2023 9:22 AM 03/12/2023 5:10 PM This order r eflects the patients wishes and were consensually agreed upon. Question Answer Comments Discussion of Advance Direct megan occurred with: Not Discussed due to patient's condition * Full Code Date Activated Date Inactivated Comments 12/23/2021 11:51 AM 12/24/2021 5:12 PM This order reflects the patients wishes and were consensually agreed upon. Question Answer Comments Discussion of Advance Directives occurred with: Patient Does the patient have a Living Will? Yes, not cu rrently available Does the patient have Health Care Power of Painter Barrel? Yes, not currently available Care Teams Applied Marine Physics Professor Relationship Specialty Start Date End Date Yury Cash MD [address] [place] [phone] PCP - General Family Medicine 07/19/24 documented as of this encounter
--- OUTSIDE RECORDS SUMMARY | 2024-11-07 07:56 | External Medical Summary | Summary of Care ---
Author Name Unknown Organization [facility] Address [address] [place] [address] Phone [phone] Care Team Providers Care 911 Emergency Dispatcher Name Role Phone Yury Cash MD Primary Care Provi [facility] Reason for Visit * Reason Comments Outpatient Testing Encounter Details Date Type Department Care Team (Late st Contact Info) Description 11/01/2024 12:20 PM [facility] Laboratory Laboratory Patient Service [address] [phone] [address] Paroxysmal A-fib (HCC); Type 2 diabetes mellitus with diabetic neuropathy, without long-term current use of insulin (HCC); Hyperlipidemia associated with type 2 diabetes mellitus (HCC); CKD (chronic kidney disease) stage 2, GFR 60-89 ml/min; Anemia, unspecified type Allergies No known active allergiesdocumented as of this encounter (statuses as of 11/01/2024) Medications aspirin enteric coated 81 MG TBEC Take 1 Tablet by mouth in the morning. 6 Active ONETOUCH DELICA LANCETS FINE MISC Check blood sugars once daily, E11.9, not using insulin, 100 Each 3 9 Active Multiple Vitamin (ONE-A-DAY MENS) Tablet Take 1 Tablet by mouth in the morning. Active OneTouch Ultra Blue In Vitro Strip (Glucose Blood) USE 1 STRIP TO CHECK GLUCOSE ONCE DAILY, dx E11.40 100 Strip 3 1 Active Allopurinol 300 MG Oral Tablet (Zyloprim) TAKE ONE TABLET BY MOUTH EVERY DAY 90 Tablet 3 08/09/2024 9:50 AM EDT 4 11/16/19 25 Active OneTouch Ultra 2 w/Device Kit Check blood sugars once daily 1 Kit 01/31/2024 11:32 AM EDT 4 Active Atorvastatin Calcium 40 MG Oral Tablet (Lipitor)Indicati ons:Dyslipidemia, goal LDL below 100 TAKE ONE TABLET BY MOUTH EVERY DAY 100 Tablet 1 10/25/2024 3:21 PM EST 4 Active Furosemide 40 MG Oral Tablet (Lasix) Take 1 Tablet by mouth in the morning. 30 Tablet 3 4 Active Acetaminophen 500 MG Oral Tablet (Tylenol) Take 1 Tablet by mouth every 6 hours as needed. Active Gabapentin 600 MG Oral Tablet (Neurontin)Indica tions:Type 2 diabetes mellitus with diabetic neuropathy, without long-term current use of insulin (HCC) TAKE ONE TABLET BY MOUTH THREE TIMES A DAY 270 Tablet 1 08/14/2024 2:24 PM EDT 4 08/14/20 25 Active Apixaban 5 MG Oral Tablet (Eliquis)Indicati ons:Paroxysmal atrial fibrillation (HCC) Take 1 Tablet by mouth in the morning and 1 Tablet before bedtime. 180 Tablet 3 4 Active metFORMIN HCl ER 500 MG Oral Tablet Extended Release 24 Hour (Glucophage XR)Indications:Ty pe 2 diabetes mellitus with diabetic neuropathy, without long-term current use of insulin (HCC) Take 2 Tablets by mouth 2 times a day with morning and evening meals. 400 Tablet 1 10/02/2024 10:41 AM EST 4 Active Mirabegron ER 50 MG Oral Tablet Extended Release 24 Hour (Myrbetriq)Indica tions:Urge incontinence TAKE 1 TABLET BY MOUTH IN THE MORNING 90 Tablet 4 Active Docusate Sodium 100 MG Oral Tablet Take 1 Tablet by mouth as needed for Constipation. Active oxyCODONE HCl 5 MG Oral Capsule (Oxy IR) Take 1 Capsule by mouth every 4 hours as needed. Active Omeprazole 20 MG Oral Capsule Delayed Release (PriLOSEC)Indicat ions:Dysphagia TAKE 1 CAPSULE BY MOUTH IN THE MORNING. TAKE 1 HOUR BEFORE THE FIRST MEAL OF THE DAY. 90 Capsule 1 5 Active Metoprolol Succinate ER 50 MG Oral Tablet Extended Release 24 Hour (toPROL XL) Take 3 Tablets by mouth in the morning and 3 Tablets before bedtime. 180 Tablet 5 Active Metoprolol Succinate ER 50 MG Oral Tablet Extended Release 24 Hour (toPROL XL)Indications:Pa roxysmal A-fib (HCC) Take 3 Tablets by mouth in the morning and 3 Tablets before bedtime. Do not start before December 02, 2024. 540 Tablet 3 5 Active Lidocaine 4 % External Patch (Aspercreme)Indic ations:Chronic low back pain without sciatica, unspecified back pain laterality Place 1 Patch over 12 hours topically on the skin daily. 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 10/14/2014 Hx of nonmelanoma skin cancer 08/21/2012 Overview (08/21/2012): L posterior shoulder BCC 12/2011 History of malignant melanoma of skin 08/16/2011 Overview (08/16/2011): Back - , no SLN, unknown depth Dyslipidemia, goal LDL below 70 09/11/2010 Assessment & Plan (09/23/2024 11:41 PM EST): Continue statin After cataract not obscuring vision 04/07/2009 Overview (08/23/2017): ICD-10 update of inactive term documented as of this encounter (statuses as of 11/01/2024) Resolved Problems Problem Noted Date Diagnosed Date Resolved Date Paroxysmal A-fib 08/29/2024 09/20/2024 Overview (09/20/2024): duplicate Coronary artery disease invo lving [place] coronary artery of [place] heart without angina pectoris 08/29/2024 09/20/2024 Overview (09/20/2024): duplicate Atrial fibrillation with RVR 07/30/2024 08/08/2024 Cellulitis of left lower extremity 07/30/2024 08/08/2024 Physical deconditioning 12/27/202307/2024 Ambulatory dysfunction 12/27/202308/08 Elevated troponin 12/23/2023 08/08/2024 Generalized weakness 12/23/2023 024 Encephalopathy acute 12/23/2023 024 Cellulitis 12/22/2023 08/08/2024 COVID 12/22/2023 08/08/2024 Elevated lactic acid level 12/22/2023 1 Fever, unknown origin 12/22/20232023 Hematuria 12/22/2023 08/08/2024 Hypoxia 12/22/2023 08/08/2024 Recurrent falls 12/22/2023 08/08/2024 Retention of urine 12/22/2023 Urinary tract infection 12/22/202307/2024 Pneumonia of left lower lobe due to infectious organism 12/22/2023 08/06/2024 Cellulitis of left lower extremity 12/23/2021 12/25/2023 Type 2 diabetes mellitus wit h hemoglobin A1c goal of less than 7.5% 11/14/2019 01/14/2021 Skin ulcer of toe of left fo ot, limited to breakdown of skin 10/13/2018 02/15/2019 Coronary artery disease invo lving [place] heart without angina pectoris 06/01/2018 11/10/2021 DM type 2 causing neurological disease 01/24/2018 01/14/2021 Type 2 diabetes mellitus wit h diabetic nephropathy, without long-term current use of insulin 09/08/2017 09/08/2017 Atherosclerotic heart diseas e of [place] coronary artery with unspecified angina pectoris 09/08/2017 [...] as of this encounter (statuses as of 11/01/2024) Immunizations Name Administration Dates Next Due COVID-19 mRNA, LNP-s, No Pre serve, 2-Dose Series ([employer]) 08/13/2021,01/22/2021,12/27/2020 Covid-19, Mrna, Lnp-s, Pf, B ivalent, 30 Mcg, IM, 12 yrs and above ([employer]) 11/09/2022 Pneumococcal Conjugate Vacc, 13 Valent (Prevnar) [...] No 08/07/2024 Does the household have a [facility] source of income? 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 Answer Date of Assessment Author No 07/30/2024 9:07 AM EDT Moses Villafana RN * Are you blind or do you have serious difficulty seeing, even when wearing glasses? Answer Date of Assessment Author No 07/30/2024 9:07 AM SAMANTHAT Moses Villafana RN * Do you have serious difficulty walking or climbing stairs? (5 years old or older) Answer Date of Assessment Author Yes 07/30/2024 9:07 AM SAMANTHAT Moses Villafana RN * Do you have difficulty dressing or bathing? (5 years old or older) Answer Date of Assessment Author No 07/30/2024 9:07 AM EDT Moses Villafana RN * Because of a physical, mental, or emotional condition, do you have difficulty doing errands alone such as visiting a doctors office or shopping? (15 years old or older) Answer Date of Assessment Author No 07/30/2024 9:07 AM EDT Moses Villafana RN documented as of this encounter Mental Status * Because of a physical, mental, or emotional condition, do you have serious difficulty concentrating, remembering, or making decisions? (5 years old or older) Answer Entry Date Author No 07/30/2024 9:07 AM EDT Moses Villafana RN documented in this encounter Plan of Treatment Upcoming Encounters Date Type Department Care Team (Late st Contact Info) Description 11/05/2024 9:30 AM EST Office Visit Urology, [place] [address] [place] [address] Bess Loredo PA-C [address] [place] [address] 11/20/2024 8:30 AM EST Home Visit [facility] [address] [address] Dhara Sky RN [address] [place] [address] 11/21/2024 8:30 AM EST Office Visit Cardiology, [facility] [address] [address] Sajan Griffith PA-C [address] [place] [address] 01/28/2025 7:10 AM EDT Laboratory Laboratory [facility], [address] [phone] [facility] [place], Lab [address] [address] 02/04/2025 8:20 AM EDT Office Visit [facility] [address] [place] [phone] Cristina Ayala PA-C [address] [place] [address] 05/29/2025 9:45 AM EDT Office Visit [facility] [address] [place] [address] Constantino Weber DO [address] [place] [address] Pending Results Name Type Priority Associated Diagnoses Date /Time CBC WITH WBC DIFFERENTIAL Lab Routine Paroxysmal A-fib ([facility]) 11/01/2024 12:26 PM EST HEMOGLOBIN A1C Lab Routine Type 2 diabetes mellitus with diabetic neuropathy, without long-term current use of insulin ([facility]) 11/01/2024 12:26 PM EST COMPREHENSIVE METABOLIC PANEL Lab Routine Hyperlipidemia associated with type 2 diabetes mellitus ([facility]) CKD (chronic kidney disease) stage 2, GFR 60-89 ml/min 11/01/2024 12:26 PM EST IRON SCREEN, INCLUDING TIBC Lab Routine Anemia, unspecified type 11/01/2024 12:26 PM EST FERRITIN Lab Routine Anemia, unspecified type 11/01/2024 12:26 PM EST LD Lab Routine Anemia, unspecified type 11/01/2024 12:26 PM EST VITAMIN B12 Lab Routine Anemia, unspecified type 11/01/2024 12:26 PM EST FOLIC ACID Lab Routine Anemia, unspecified type 11/01/2024 12:26 PM EST RETICULOCYTE PANEL Lab Routine Anemia, unspecified type 11/01/2024 12:26 PM EST CBC Lab Routine Paroxysmal A-fib ([facility]) 11/01/2024 12:26 PM EST DIFFERENTIAL, AUTOMATED Lab Routine Paroxysmal A-fib ([facility]) 11/01/2024 12:26 PM EST Health Maintenance Due Date Last Done Comments Colonoscopy 01/20/2016 01/19/2011, 12/29, 01/07/2011, Additional history exists Albumin/Creatinine Ratio 05/07/2023 022, 04/11/2021, 05/28/2020, Additional history exists COVID-19 Vaccine ( - 2023- season) 2024 11/09/2022, 08/13/2021, 01/22/2021, Additional history exists HbA1c 04/08/2025 10/08/2024, 1212/2023, 08/14/2024, Additional history exists B-12 05/17/2025 05/17/2024, 05/2024, 07/07/2023, Additional history exists Diabetic Eye Exam 06/18/2025 06/18/2024, , 05/25/2024, Additional history exists Adult Wellness Visit 08/06/2025 08/06/2024 Depression Screening 08/06/2025 08/06/2024, 04/21/20 15 Diabetic Foot Exam 08/10/2025 08/10/2024, 0 06/08/2023, 08/23/2022, Additional history exists DTap/Tdap Vaccines (3 - [...] Not on filedocumented as of this encounter Visit Diagnoses Diagnosis Paroxysmal atrial fibrillation (HCC)- Primary Atrial fibrillation Atherosclerosis of [place] artery of both lower extremities with other clinical manifestation (HCC) Hyperlipidemia associated with type 2 diabetes mellitus (HCC) Abdominal aortic aneurysm (AAA) without rupture, unspecified part (HCC) Aneurysm of ascending aorta without rupture (HCC) 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)- Primary Type 2 diabetes mellitus with diabetic neuropathy, without long-term current use of insulin (HCC) Dyslipidemia, goal LDL below 70 Other and unspecified hyperlipidemia Paroxysmal atrial fibrillation (HCC) Atrial fibrillation Advanced care planning/counseling discussion Other specified counseling Paroxysmal A-fib (HCC) Atrial fibrillation Type 2 diabetes mellitus with diabetic neuropathy, without long-term current use of insulin (HCC) Hyperlipidemia associated with type 2 diabetes mellitus (HCC) CKD (chronic kidney disease) stage 2, GFR 60-89 ml/min Chronic kidney disease, Stage II (mild) Anemia, unspecified type documented in this encounter Advance Directives * Full Code [...] the patient have Health Care Power of Liturgical Music Director? Yes, not currently available Care Teams 911 Emergency Dispatcher Relationship Specialty Start Date End Date Yury Cash MD [address] [place] [phone] PCP - General Family Medicine 07/19/24 documented as of this encounter
--- OUTSIDE RECORDS SUMMARY | 2024-11-07 07:56 | External Medical Summary | Summary of Care ---
Author Name Unknown Organization [facility] Address [address] [place] [address] Phone [phone] Care Team Providers Care Game Farm Supervisor Name Role Phone Doe Cash MD Primary Care Provi [facility] Reason for Visit * Reason Comments Medication Refill Encounter Details Date Type Department Care Team ([facility] st Contact Info) Description 11/05/[address] [phone] Eron Tovar, DO [address] [place] [address] Allergies No known active allergiesdocumented as of [...] dx E11.40 100 Strip 3 1 Active OneTouch Ultra 2 w/Device Kit Check blood sugars once daily 1 Kit 01/31/2024 11:32 AM EDT 4 Active Atorvastatin Calcium 40 MG Oral Tablet (Lipitor)Indicat ions:Dyslipidemi a, goal LDL below 100 TAKE ONE TABLET BY MOUTH EVERY DAY 100 Tablet 1 10/25/2024 3:21 PM EST 4 Active Furosemide 40 MG Oral Tablet (Lasix) Take 1 Tablet by mouth in the morning. 30 Tablet 3 4 Active Acetaminophen 500 MG Oral Tablet (Tylenol) Take 1 Tablet by mouth every 6 hours as needed. Active Gabapentin 600 MG Oral Tablet (Neurontin)Indic ations:Type 2 diabetes mellitus with diabetic neuropathy, without long-term current use of insulin (HCC) TAKE ONE TABLET BY MOUTH THREE TIMES A DAY 270 Tablet 1 08/14/2024 2:24 PM EDT 4 08/14/20 25 Active Apixaban 5 MG Oral Tablet (Eliquis)Indicat ions:Paroxysmal atrial fibrillation (HCC) Take 1 Tablet by mouth in the morning and 1 Tablet before bedtime. 180 Tablet 3 4 Active metFORMIN HCl ER 500 MG Oral Tablet Extended Release 24 Hour (Glucophage XR)Indications:T ype 2 diabetes mellitus with diabetic neuropathy, without long-term current use of insulin (HCC) Take 2 Tablets by mouth 2 times a day with morning and evening meals. 400 Tablet 1 10/02/2024 10:41 AM EST 4 Active Mirabegron ER 50 MG Oral Tablet Extended Release 24 Hour (Myrbetriq)Indic ations:Urge incontinence TAKE 1 TABLET BY MOUTH IN THE MORNING 90 Tablet 4 Active Docusate Sodium 100 MG Oral Tablet Take 1 Tablet by mouth as needed for Constipation. Active oxyCODONE HCl 5 MG Oral Capsule (Oxy IR) Take 1 Capsule by mouth every 4 hours as needed. Active Omeprazole 20 MG Oral Capsule Delayed Release (PriLOSEC)Indica tions:Dysphagia TAKE 1 CAPSULE BY MOUTH IN THE [...] Oral Tablet Extended Release 24 Hour (toPROL XL)Indications:P aroxysmal A-fib (HCC) Take 3 Tablets by mouth in the morning and 3 Tablets before bedtime. Do not start before December 02, 2024. 540 Tablet 3 5 Active Lidocaine 4 % External Patch (Aspercreme)Charlene cations:Chronic low back pain without sciatica, unspecified back pain laterality Place 1 Patch over 12 hours topically on the skin daily. 30 Patch 5 Active Allopurinol 300 MG Oral Tablet (Zyloprim) TAKE ONE TABLET BY MOUTH EVERY DAY 90 Tablet 3 5 11/05/19 26 Active Allopurinol 300 MG Oral Tablet (Zyloprim) TAKE ONE TABLET BY MOUTH EVERY DAY 90 Tablet 3 08/09/2024 9:50 AM EDT 4 11/05/19 25 Discontin ued(Refil l) documented as of this encounter (statuses as [...] to breakdown of skin 09/27/2023 Atherosclerosis of [place] co ronary artery without angina pectoris 02/09/2023 [...] EDT): Followed by vascular Unspecified atherosclerosis of [place] arteries of extremities, bilateral legs 02/15/2019 Assessment & Plan (09/23/2024 11:41 PM EST): Follows with Dr Pfeiffer vascular surgery [facility] Surgery 10/08 Plan a left popliteal to [...] (09/20/2024): duplicate Coronary artery disease invo lving [place] coronary artery of [place] heart without angina pectoris 08/29/2024 09/20/2024 Overview [...] 10/13/2018 02/15/2019 Coronary artery disease invo lving [place] heart without angina pectoris 06/01/2018 11/10/2021 DM type 2 causing neurological disease 01/24/2018 01/14/2021 Type 2 diabetes mellitus wit h diabetic nephropathy, without long-term current use of insulin 09/08/2017 09/08/2017 Atherosclerotic heart diseas e of [place] coronary artery with unspecified angina pectoris 09/08/2017 [...] mRNA, LNP-s, No Pre serve, 2-Dose Series ([employer]) 08/13/2021,01/22/2021,12/27/2020 Covid-19, Mrna, Lnp-s, Pf, B ivalent, 30 Mcg, IM, 12 yrs and above ([employer]) 11/09/2022 Pneumococcal Conjugate Vacc, 13 Valent (Prevnar) [...] No 08/07/2024 Does the household have a [facility] source of income? 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 Not on [...] Entry Date Author No 07/30/2024 9:07 AM Moses Hernandes RN documented in this encounter Miscellaneous Notes * Telephone Encounter - Indra [facility] - 11/05/2024 4:15 PM ESTSigned Prescriptions: Disp Refills Allopurinol 300 MG Oral Tablet (Zyloprim) 90 Tab*3 Sig: TAKE ONETABLET BY MOUTH EVERY DAYAuthorizing Provider: DOE CASH User: INDRA AUSTIN documented in this encounter Plan of Treatment Upcoming Encounters Date Type Department Care Team (Late st Contact Info) Description 11/08/2024 8:30 AM EST Office Visit Urology, [place] [address] [place] [address] Kristian Younger PA-C [address] [place] [address] 11/20/2024 8:30 AM EST Home Visit [facility] [address] [place] [address] Dhara Sky, RN [address] [place] [address] 11/21/2024 8:30 AM EST Office Visit Cardiology, [facility] [address] [facility] [address] [place] [address] Sajan Griffith PA-C [address] [place] [address] 01/28/2025 7:10 AM EDT Laboratory Laboratory Patient Service [facility] [address] [place] [address] [place], [facility] [place] [address] [place] [address] 02/04/2025 8:20 AM EDT Office Visit [facility] [address] [place] [address] Cristina Ayala PA-C [address] [place] [address] 05/29/2025 9:45 AM EDT Office Visit [facility] [address] [place], [place] [phone] Constantino Weber DO [address] [place] [address] Health Maintenance Due Date Last Done Comments Colonoscopy 01/20/2016 01/19/2011, 12/29, 01/07/2011, Additional history exists Albumin/Creatinine Ratio 05/07/[address] 022, 04/11/2021, 05/28/2020, Additional history exists COVID-19 Vaccine ( season) 2024 11/09/2022, 08/13/2021, 01/22/2021, Additional history exists HbA1c 05/01/2025 11/01/2024, 12/0 07/2024, 10/01/2024, Additional history exists Diabetic Eye Exam [...] the patient have Health Care Power of Associate Financial Representative? Yes, not currently available Care Teams Game Farm Supervisor Relationship Specialty Start Date End Date Doe Cash MD [address] [place] [phone] PCP - General Family Medicine 07/19/24 documented as of this encounter
--- OUTSIDE RECORDS SUMMARY | 2024-11-07 07:56 | External Medical Summary | Summary of Care ---
Author Name Unknown Organization [facility] Address [address] [place] [address] Phone [phone] Care Team Providers Care Tube Fitter Name Role Phone Yury Cash MD Primary Care [facility] Reason for Visit * Reason Onset Date Comments Appointment 10/17/2024 Advice 10/17/2024 Appointment 10/17/2024 Encounter Details Date Type Department Care Team (Late st Contact Info) Description 10/17/2024 Telephone Urology, [place] [address] [place], [place] [phone] Services, Scheduling [address] [place] [address] Appointment; Advice; Appointment Allergies No known active [...] to breakdown of skin 09/27/2023 Atherosclerosis of [place] co ronary artery without angina pectoris 02/09/2023 [...] EDT): Followed by vascular Unspecified atherosclerosis of [place] arteries of extremities, bilateral legs 02/15/2019 Assessment & Plan (09/23/2024 11:41 PM EST): Follows with Dr Pfeiffer vascular surgery [facility] Surgery 10/08 Plan a left popliteal [...] (09/20/2024): duplicate Coronary artery disease invo lving [place] coronary artery of [place] heart without angina pectoris 08/29/2024 09/20/2024 Overview [...] 10/13/2018 02/15/2019 Coronary artery disease invo lving [place] heart without angina pectoris 06/01/2018 11/10/2021 DM type 2 causing neurological disease 01/24/2018 01/14/2021 Type 2 diabetes mellitus wit h diabetic nephropathy, without long-term current use of insulin 09/08/2017 09/08/2017 Atherosclerotic heart diseas e of [place] coronary artery with unspecified angina pectoris 09/08/2017 [...] mRNA, LNP-s, No Pre serve, 2-Dose Series ([employer]) 08/13/2021,01/22/2021,12/27/2020 Covid-19, Mrna, Lnp-s, Pf, B ivalent, 30 Mcg, IM, 12 yrs and above ([employer]) 11/09/2022 Pneumococcal Conjugate Vacc, 13 Valent (Prevnar) [...] 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 Thank you YEISON Honeycutt 2:06 PM 11/05/2024 * Telephone Encounter - Odilia Boo OSA [...] 10/17/2024 9:13 AM EST Sonja calling from [facility] Vascular on Pt. Behalf Pt was recently [...] 11/08/2024 8:30 AM EST Office Visit Urology, [place] [address] [place] [address] Kristian Younger PA-C [address] [place] [address] 11/20/2024 8:30 AM EST Home Visit [facility] [address] [place] [address] Dhara Sky, RN [address] [place] [address] 11/21/2024 8:30 AM EST Office Visit Cardiology, [facility] [address] [place] [address] Sajan Griffith PA-C [address] [place] [address] 01/28/2025 7:10 AM EDT Laboratory [facility] [phone] [id number] 02/04/2025 8:20 AM EDT Office [facility] [address] [place] [address] Cristina Ayala PA-C [address] [place] [address] 05/29/2025 9:45 AM EDT Office Visit [facility] [address] [place], [place] [phone] Constantino Weber DO [address] [place], [place] [phone] Health Maintenance Due Date Last Done Comments Colonoscopy 01/20/2016 01/19/2011, 12/29, 01/07/2011, Additional history exists Albumin/Creatinine Ratio 05/07/2023 022, 04/11/2021, 05/28/2020, Additional history exists COVID-19 Vaccine ( season) 2024 11/09/2022, 08/13/2021, 01/22/2021, Additional history exists HbA1c 05/01/2025 11/01/2024, 12/07/2024, 10/01/2024, Additional history exists Diabetic Eye Exam [...] the patient have Health Care Power of Flat Spring Assembler? Yes, not currently available Care Teams Tube Fitter Relationship Specialty Start Date End Date Yury Cash MD [address] [place] [phone] PCP - General Family Medicine 07/19/24 documented as of this encounter
--- OUTSIDE RECORDS SUMMARY | 2024-11-07 07:56 | External Medical Summary | Summary of Care ---
Author Name Unknown Organization [facility] Address [address] [facility] [address] Phone [phone] Care Team Providers Care Hydrologist Name Role Phone Yury Cash MD Primary Care [facility] Encounter Details Date Type Department Care Team (Late st Contact Info) Description 11/01/2024 Population Health External Data Unspecified Department Allergies No known active allergiesdocumented as of this encounter (statuses as of 11/06/2024) Medications aspirin enteric coated 81 MG TBEC [...] neuropathy, without long-term current use of insulin ([facility]) Take 2 Tablets by mouth 2 times [...] as of this encounter (statuses as of 11/06/2024) Active Problems Problem Noted Date Diagnosed Date [...] to breakdown of skin 09/27/2023 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 artery without angina pectoris 02/09/2023 [...] EDT): Followed by vascular Unspecified atherosclerosis of [place] arteries of extremities, bilateral legs 02/15/2019 Assessment & Plan (09/23/2024 11:41 PM EST): Follows with Dr Pfeiffer vascular surgery [facility] Surgery 10/08 Plan a left popliteal [...] of skin 08/16/2011 Overview (08/16/2011): Back - 1989's, no SLN, unknown depth Dyslipidemia, goal LDL below 70 09/11/2010 Assessment & Plan (09/23/2024 11:41 PM EST): Continue statin After cataract not obscuring vision 04/07/2009 Overview (08/23/2017): ICD-10 update of inactive term documented as of this encounter (statuses as of 11/06/2024) Resolved Problems Problem Noted Date Diagnosed Date Resolved Date Paroxysmal A-fib 08/29/2024 09/20/2024 Overview (09/20/2024): duplicate Coronary artery disease invo lving [place] coronary artery of [place] heart without angina pectoris 08/29/2024 09/20/2024 Overview [...] Retention of urine 12/22/2023 Urinary tract infection 12/22/2023 10/0 07/2024 Pneumonia of left lower lobe due to infectious organism 12/22/2023 08/06/2024 Cellulitis of left lower extremity 12/23/2021 12/25/2023 Type 2 diabetes mellitus wit h hemoglobin A1c goal of less than 7.5% 11/14/2019 01/14/2021 Skin ulcer of toe of left fo ot, limited to breakdown of skin 10/13/2018 02/15/2019 Coronary artery disease invo lving [place] heart without angina pectoris 06/01/2018 11/10/2021 DM type 2 causing neurological disease 01/24/2018 01/14/2021 Type 2 diabetes mellitus wit h diabetic nephropathy, without long-term current use of insulin 09/08/2017 09/08/2017 Atherosclerotic heart diseas e of [place] coronary artery with unspecified angina pectoris 09/08/2017 [...] as of this encounter (statuses as of 11/06/2024) Immunizations Name Administration Dates Next Due COVID-19 mRNA, LNP-s, No Pre serve, 2-Dose Series (StormWind) 08/13/2021,01/22/2021,12/27/2020 Covid-19, Mrna, Lnp-s, Pf, B ivalent, 30 Mcg, IM, 12 yrs and above (Pfizer) 11/09/2022 Pneumococcal Conjugate Vacc, 13 Valent (Prevnar) [...] 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 Not on [...] Moses Hernandes RN * Do you have serious difficulty [...] Moses Hernandes RN documented in this encounter Plan of Treatment Upcoming Encounters Date Type Department Care Team (Late st Contact Info) Description 11/08/2024 8:30 AM EST Office Visit Urology, [place] [address] [place] [address] Kristian Younger PA-C [address] [place] [address] 11/20/2024 8:30 AM EST Home Visit [facility] [address] [place] [address] Dhara Sky, RN [address] [place] [address] 11/21/2024 8:30 AM EST Office Visit Cardiology, [facility] [address] [place] [address] Sajan Griffith PA-C [address] [place] [address] 01/28/2025 7:10 AM EDT Laboratory [facility], [address] [phone] [address] 02/04/2025 8:20 AM EDT Office Visit [facility] [address] [place] [address] Cristina Ayala PA-C [address] [place] [address] 05/29/2025 9:45 AM EDT Office Visit [facility] [address] [place], [place] [id number] Constantino Weber DO [address] [place], [place] [id number] Health Maintenance Due Date Last Done Comments [...] the patient have Health Care Power of Cnc Lathe Machinist? Yes, not currently available Care Teams Hydrologist Relationship Specialty Start Date End Date Yury Cash MD [address] [place] [phone] PCP - General Family Medicine 07/19/24 documented as of this encounter
--- OUTSIDE RECORDS SUMMARY | 2024-11-07 07:56 | External Medical Summary | Summary of Care ---
Author Name Unknown Organization [facility] Address [address] [place] [address] Phone [phone] Care Team Providers Care Physical Meteorologist Name Role Phone Yury Cash MD Primary Care [facility] Reason for Visit * Reason Comments Follow Up Pt is here today for routine 3 month check up.Pt has no new concerns at this time. Encounter Details Date Type Department Care Team ([facility] Contact Info) Description 11/01/2024 11:40 AM EST Office Visit [address] [phone] Yury Cash MD [address] [place] [phone] Paroxysmal A-fib (HCC)*; Type 2 diabetes mellitus with diabetic neuropathy, without long-term current use of insulin (HCC); Hyperlipidemia associated with type 2 diabetes mellitus (HCC); CKD (chronic kidney disease) stage 2, GFR 60-89 ml/min; Anemia, unspecified type; Chronic low back pain without sciatica, unspecified back pain laterality Allergies No known active allergiesdocumented as of this encounter (statuses as of 11/01/2024) Medications aspirin enteric coated 81 MG TBEC Take 1 Tablet by mouth in the morning. 6 Active ONETOUCH DELICA LANCETS FINE MISC Check blood sugars once daily, E11.9, not using insulin, 100 Each 3 9 Active Multiple Vitamin (ONE-A-DAY MENS) Tablet Take 1 Tablet by mouth in the morning. Active Selo Reserva Ultra Blue In Vitro Strip (Glucose Blood) USE 1 STRIP TO CHECK GLUCOSE ONCE DAILY, dx E11.40 100 Strip 3 1 Active Allopurinol 300 MG Oral Tablet (Zyloprim) TAKE ONE TABLET BY MOUTH EVERY DAY 90 Tablet 3 08/09/2024 9:50 AM EDT 4 11/16/19 25 Active Selo Reserva Ultra 2 w/Device Kit Check blood sugars [...] the skin daily. 30 Patch 5 Active Metoprolol Succinate ER 100 MG Oral Tablet Extended Release 24 Hour (toPROL XL) Take 1 Tablet by mouth in the morning and 1 Tablet before bedtime. 60 Tablet 3 4 11/01/19 25 Discontin ued(Medic ation List Clean Up) Metoprolol Succinate ER 50 MG Oral Tablet Extended Release 24 Hour (toPROL XL)Indications:P aroxysmal A-fib (HCC) Take 3 Tablets by mouth in the morning and 3 Tablets before bedtime. Do not start before December 02, 2024. 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 10/14/2014 Hx of nonmelanoma skin cancer 08/21/2012 [...] (09/20/2024): duplicate Coronary artery disease invo lving elem coronary artery of elem heart without angina pectoris 08/29/2024 09/20/2024 Overview [...] of urine 12/22/2023 Urinary tract infection 12/22/2023 10/07/2024 Pneumonia of left lower lobe due to infectious organism 12/22/2023 08/06/2024 Cellulitis of left lower extremity 12/23/2021 12/25/2023 Type 2 diabetes mellitus wit h hemoglobin A1c goal of less than 7.5% 11/14/2019 01/14/2021 Skin ulcer of toe of left fo ot, limited to breakdown of skin 10/13/2018 02/15/2019 Coronary artery disease invo lving elem heart without angina pectoris 06/01/2018 11/10/2021 DM type 2 causing neurological disease 01/24/2018 01/14/2021 Type 2 diabetes mellitus wit h diabetic nephropathy, without long-term current use of insulin 09/08/2017 09/08/2017 Atherosclerotic heart diseas e of elem coronary artery with unspecified angina pectoris 09/08/2017 [...] mRNA, LNP-s, No Pre serve, 2-Dose Series (Pfizer) 08/13/2021,01/22/2021,12/27/2020 Covid-19, Mrna, Lnp-s, Pf, B ivalent, [...] 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 Answer Date of Assessment Author No 07/30/2024 9:07 AM EDT Moses Villafana RN * Are you blind or do you have serious difficulty seeing, even when wearing glasses? Answer Date of Assessment Author No 07/30/2024 9:07 AM EDT Moses Villafana RN * Do you have [...] 07/30/2024 9:07 AM SAMANTHAT Moses Villafana RN documented as of this encounter Mental Status * Because of a physical, mental, or emotional condition, do you have serious difficulty concentrating, remembering, or making decisions? (5 years old or older) Answer Entry Date Author No 07/30/2024 9:07 AM SAMANTHAT Moses Villafana RN documented in this encounter Progress Notes * Yury Cash MD - 11/01/2024 11:47 AM EST Images from the original note were not included. History of Present Illness Gomez Suarez is a 88 year old male that presents for Follow Up (Pt is here today for routine 3 month check up./Pt has no new concerns at this time. ) 88-year-old male follow-up [facility] on 10/08/24 for a scheduled LLE bypass for atherosclerosis of elem arteries of left leg History of urinary incontinence, status post prostate surgery, current indwelling catheter considering risk of infection to lower extremity incisions. Patient we will be following with Urology for catheter removal Postoperative anemia, showing improvement. Denies any melena or bright red blood. Patient is on Eliquis. Describes having chronic tailbone pain, no skin breakdown No fevers or chills Physical Exam Vitals: 11/01/24 1129 Temp: 96.6 F (35.9 C) Pulse: 66 Resp: 18 SpO2: 95% BP: 142/70 BP Readings from Last 3 Encounters: 11/01/24 142/70 10/23/24 120/60 10/22/24 130/64 Wt Readings from Last 3 Encounters: 11/01/24 211 lb 9.6 oz (96 kg) 10/23/24 214 lb 1.1 oz (97.1 kg) 10/01/24 222 lb (100.7 kg) BMI Readings from Last 3 Encounters: 11/01/24 30.36 kg/m 10/23/24 30.72 kg/m 10/01/24 31.85 kg/m Ht Readings from Last 3 Encounters: 08/06/24 5' 10" (1.778 m) 07/30/24 5' 10" (1.778 m) 04/25/24 5' 10" (1.778 m) General; Normal cephalic, atraumatic Cardiology; Regular rate and rhythm, normal S1 S2, no murmurs, rubs or gallops, no peripheral edema Pulmonary; Clear to auscultation bilaterally, no rales, rhonchi or wheezing Neuro/psych; CN grossly intact, normal gait, answering questions appropriately, normal mood/affect I have reviewed the following results: CMP, Lipid Panel, and CBC Assessment and Plan Paroxysmal A-fib (HCC) (Primary) - CBC WITH WBC DIFFERENTIAL; Future; Expected date: 11/01/2024 - Metoprolol Succinate ER 50 MG Oral Tablet Extended Release 24 Hour (toPROL XL); Take 3 Tablets bymouth in the morning and 3 Tablets before bedtime. Do not start before December 02, 2024. Type 2 diabetes mellitus with diabetic neuropathy, without long-term current use of insulin (HCC) - HEMOGLOBIN A1C; Future; Expected date: 11/01/2024 - HEMOGLOBIN A1C; Future; Expected date: 01/30/2025 Hyperlipidemia associated with type 2 diabetes mellitus (HCC) - LIPID PANEL WITH DIRECT LDL IF TG IS HIGH; Future; Expected date: 01/30/2025 - COMPREHENSIVE METABOLIC PANEL; Future; Expected date: 01/30/2025 - COMPREHENSIVE METABOLIC PANEL; Future; Expected date: 11/01/2024 CKD (chronic kidney disease) stage 2, GFR 60-89 ml/min - COMPREHENSIVE METABOLIC PANEL; Future; Expected date: 01/30/2025 - COMPREHENSIVE METABOLIC PANEL; Future; Expected date: 11/01/2024 Anemia, unspecified type - IRON SCREEN, INCLUDING TIBC; Future; Expected date: 11/01/2024 - FERRITIN; Future; Expected date: 11/01/2024 - LD; Future; Expected date: 11/01/2024 - VITAMIN B12; Future; Expected date: 11/01/2024 - FOLIC ACID; Future; Expected date: 11/01/2024 - RETICULOCYTE PANEL; Future; Expected date: 11/01/2024 Chronic low back pain without sciatica, unspecified back pain laterality - Lidocaine 4 % External Patch (Aspercreme); Place 1 Patch over 12 hours topically on the skin daily. Other orders - Metoprolol Succinate ER 50 MG Oral Tablet Extended Release 24 Hour (toPROL XL); Take 3 Tablets bymouth in the morning and 3 Tablets before bedtime. Follow Up: Return in about 3 months (around 01/30/2025) for Return with Physician, Labs Today, Fasting Labs 2-5 Days Before Next Visit. | For: Return with Physician, Labs Today, Fasting Labs 2-5 Days Before Next Visit | Check-out note: Labs today and in 3 months Postop anemia, showing some improvement. Hemoglobin went from 12.1 to 8.7 its lowest. The time of discharge on 10/16/2024 it was 9.1. Denies any symptoms of acute blood loss, denies any other source of bleed--no hematuria, no melena/bright red blood per rectum. Patient continues take Eliquis. We will recheck CBC today and will also get anemia studies. Continue follow-up with Cardiology--when he was inpatient, his metoprolol was increased to 150 twice daily, requesting refills today. Blood pressure fairly well controlled today, heart rate well controlled today Continue follow-up with Urology Chronic lower back pain, no signs of skin breakdown on exam today. Provided lidocaine patches, recommended Tylenol 1000 mg every 6-8 hours. Continue to follow Wrap-Up Follow Up: Return in about 3 months (around 01/30/2025) for Return with Physician, Labs Today, Fasting Labs 2-5 Days Before Next Visit. | For: Return with Physician, Labs Today, Fasting Labs 2-5 Days Before Next Visit | Check-out note: Labs today and in 3 months documented in this encounter Nursing Notes * Annie Martin LPN - 11/01/2024 11:29 AM EST The patient has been properly identified by confirmation of name and date of . Chief Complaint Patient presents with Follow Up Pt is here today for routine 3 month check up. Pt has no new concerns at this time. documented in this encounter Plan of Treatment Upcoming Encounters Date Type Department Care Team (Late st Contact Info) Description 11/05/2024 9:30 AM EST Office Visit Urology, [place] [address] [place] [address] Bess Loredo PA-C [address] [place] [address] 11/20/2024 8:30 AM EST [facility] Visit [facility] [address] [facility] [place] [address] Dhara Sky RN [address] [facility] [place] [address] 11/21/2024 8:30 AM EST Office Visit Cardiology, [facility] [address] [facility] [place] [address] Sajan Griffith PA-C [address] [place] [address] 01/28/2025 7:10 AM EDT Laboratory Laboratory Patient Service [address] [phone] [address] 02/04/2025 8:20 AM EDT Office Visit [facility] [address] [place] [address] Cristina Ayala PA-C [address] [place] [address] 05/29/2025 9:45 AM EDT Office Visit [facility] [address] [place] [address] Constantino Weber DO [address] [place] [address] Pending Results Name Type Priority Associated Diagnoses Date /Time CBC WITH WBC DIFFERENTIAL Lab Routine Paroxysmal A-fib ([facility]) 11/01/2024 12:26 PM EST HEMOGLOBIN A1C Lab Routine Type 2 diabetes mellitus with diabetic neuropathy, without long-term current use of insulin ([facility]) 11/01/2024 12:26 PM EST COMPREHENSIVE METABOLIC PANEL Lab Routine Hyperlipidemia associated with type 2 diabetes mellitus ([facility]) CKD (chronic kidney disease) stage 2, GFR [...] Anemia, unspecified type 11/01/2024 12:26 PM EST Scheduled Orders Name Type Priority Associated Diagnoses Orde r Schedule CBC WITH WBC DIFFERENTIAL Lab Routine Paroxysmal A-fib (HCC) Expected: 11/01/2024 (Approximate), Expires: 11/01/2025 HEMOGLOBIN A1C Lab Routine Type 2 diabetes mellitus with diabetic neuropathy, without long-term current use of insulin (HCC) Expected: 11/01/2024 (Approximate), Expires: 11/01/2025 HEMOGLOBIN A1C Lab Routine Type 2 diabetes mellitus with diabetic neuropathy, without long-term current use of insulin (HCC) Expected: 01/30/2025 (Approximate), Expires: 11/01/2025 LIPID PANEL WITH DIRECT LDL IF TG IS HIGH Lab Routine Hyperlipidemia associated with type 2 diabetes mellitus (HCC) Expected: 01/30/2025, Expires: 11/01/2025 COMPREHENSIVE METABOLIC PANEL Lab Routine Hyperlipidemia associated with type 2 diabetes mellitus (HCC) CKD (chronic kidney disease) stage 2, GFR 60-89 ml/min Expected: 01/30/2025 (Approximate), Expires: 11/01/2025 COMPREHENSIVE METABOLIC PANEL Lab Routine Hyperlipidemia associated with type 2 diabetes mellitus (HCC) CKD (chronic kidney disease) stage 2, GFR 60-89 ml/min Expected: 11/01/2024 (Approximate), Expires: 11/01/2025 IRON SCREEN, INCLUDING TIBC Lab Routine Anemia, unspecified type Expected: 11/01/2024 (Approximate), Expires: 11/01/2025 FERRITIN Lab Routine Anemia, unspecified type Expected: 11/01/2024 (Approximate), Expires: 11/01/2025 LD Lab Routine Anemia, unspecified type Expected: 11/01/2024 (Approximate), Expires: 11/01/2025 VITAMIN B12 Lab Routine Anemia, unspecified type Expected: 11/01/2024 (Approximate), Expires: 11/01/2025 FOLIC ACID Lab Routine Anemia, unspecified type Expected: 11/01/2024 (Approximate), Expires: 11/01/2025 RETICULOCYTE PANEL Lab Routine Anemia, unspecified type Expected: 11/01/2024 (Approximate), Expires: 11/01/2025 Health Maintenance Due Date Last Done Comments Colonoscopy 01/20/2016 01/19/2011, 12/29, 01/07/2011, Additional history exists Albumin/Creatinine Ratio 05/07/2023 022, 04/11/2021, 05/28/2020, Additional history exists COVID-19 Vaccine ( season) 2024 11/09/2022, 08/13/2021, 01/22/2021, Additional history exists HbA1c 04/08/2025 10/08/2024, 12/2023, 08/14/2024, Additional history exists B-12 05/17/2025 05/17/2024, [...] fibrillation (HCC)- Primary Atrial fibrillation Atherosclerosis of elem artery of both lower extremities with other clinical manifestation (HCC) Hyperlipidemia associated with type 2 diabetes mellitus (HCC) Abdominal aortic aneurysm (AAA) without rupture, unspecified part (HCC) Aneurysm of ascending aorta without rupture (HCC) Atherosclerosis of elem artery of both lower extremities with bilateral ulceration of other part of feet (HCC)- Primary Type 2 diabetes mellitus with diabetic neuropathy, without long-term current use of insulin (HCC) Dyslipidemia, goal LDL below 70 Other and unspecified hyperlipidemia Paroxysmal atrial fibrillation (HCC) Atrial fibrillation Advanced care planning/counseling discussion Other specified counseling Paroxysmal A-fib (HCC)- Primary Atrial fibrillation Type 2 diabetes mellitus with diabetic neuropathy, without long-term current use of insulin (HCC) Hyperlipidemia associated with type 2 diabetes mellitus (HCC) CKD (chronic kidney disease) stage 2, GFR 60-89 ml/min Chronic kidney disease, Stage II (mild) Anemia, unspecified type Chronic low back pain without sciatica, unspecified back pain laterality documented in this encounter Advance Directives * [...] the patient have Health Care Power of Early Interventionist? Yes, not currently available Care Teams Physical Meteorologist Relationship Specialty Start Date End Date Yury Cash MD [address] [place] [phone] PCP - General Family Medicine 07/19/24 documented as of this encounter
--- OUTSIDE RECORDS SUMMARY | 2024-11-07 07:56 | External Medical Summary ---
Author Name Unknown Address Unknown Organization [id number]:[facility] [address] [place] [address] Laboratory Report Ordering Provider Test Date Status IGNACIO AZAR 11/01/2024 12:26:02 Final Observation Date Value Abnormality Reference (Units ) Status LDH 11/01/2024 12:26:02 224 <=250 (U/L ) Final Performing Location [facility] [address] [place] [address]
--- OUTSIDE RECORDS SUMMARY | 2024-11-07 07:56 | External Medical Summary ---
Author Name Unknown Address Unknown Organization [id number]:[facility] [place] [address] [place] [address] Laboratory Report Ordering Provider Test Date Status IGNACIO AZAR 11/01/2024 12:26:02 Final Observation Date Value Abnormality Reference (Units ) Status WBC, Total 11/01/2024 12:26:02 7.18 4.00-10.80 (K/uL) Final RBC 11/01/2024 12:26:02 4.48 4.50-5.25 (M/uL) Final Hemoglobin 11/01/2024 12:26:02 11.7 Below low normal 14.0-16.8 (g/dL) Final HCT 11/01/2024 12:26:02 39.5 Below low normal 40.0-48.4 (%) Final MCV 11/01/2024 12:26:02 88.2 82.0-99.5 (fL) Final MCH 11/01/2024 12:26:02 26.1 27.0-34.0 (pg) Final MCHC 11/01/2024 12:26:02 29.6 32.0-36.0 (g/dL) Final RDW 11/01/2024 12:26:02 16.4 11.5-15.5 (%) Final Platelets 11/01/2024 12:26:02 197 140-400 (K/uL) Final MPV 11/01/2024 12:26:02 13.2 6.6-11.1 (fL) Final Nucleated erythrocytes/100 leukocytes [Ratio] in Blood by Automated count 11/01/2024 12:26:02 0 <=0 (/100 WBCs) Final Performing Location [facility] [place] [address] [place] [address]
--- OUTSIDE RECORDS SUMMARY | 2024-11-07 07:56 | External Medical Summary ---
Author Name Unknown Address Unknown Organization [id number]:[facility] [place] [address] [place] [address] Laboratory Report Ordering Provider Test Date Status DOEJACOBO 11/01/2024 12:26:02 Final Observation Date Value Abnormality Reference (Units ) Status HbA1C 11/01/2024 12:26:02 7.5 Above high normal 4. 0-5.6 (%) Final The use of HbA1c to monitor glycemic status is based on normal hemoglobin and HbA composition. This test should not be used in patients with abnormal hemoglobin that affects the half life of the red blood cell or the in vivo glycation rates. Glucose, estimated average 11/01/2024 12:26:02 169 Above high normal <126 (mg/dL) Jc abreu Performing Location [facility] [place] [facility] [address] [facility] [address]
--- OUTSIDE RECORDS SUMMARY | 2024-11-07 07:57 | External Medical Summary ---
Author Name Unknown Address Unknown Organization [id number]:[facility] - [address] [place] [address] Laboratory Report Ordering Provider Test Date Status IGNACIO AZAR 11/01/2024 12:26:02 Final Observation Date Value Abnormality Reference (Units ) Status Ferritin 11/01/2024 12:26:02 50 30-400 (ng /mL) Final Performing Location [facility] - [address] [place] [address]
--- OUTSIDE RECORDS SUMMARY | 2024-11-07 07:57 | External Medical Summary ---
Author Name Unknown Address Unknown Organization [id number]:[facility] [place] [address] [place] [address] Laboratory Report Ordering Provider Test Date Status IGNACIO AZAR 11/01/2024 12:26:02 Final Observation Date Value Abnormality Reference (Units ) Status Iron 11/01/2024 12:26:02 34 Below low normal 45-176 (ug/dL) Final Iron-binding capacity 11/01/2024 12:26:02 492 Above high normal 250-425 (ug/dL) Final Transferrin Sat % 11/01/2024 12:26:02 7 Below low normal 15-55 (%) Final Performing Location [facility] [place] [address] [place] [address]
--- OUTSIDE RECORDS SUMMARY | 2024-11-07 07:57 | External Medical Summary | Summary of Care ---
Author Name Unknown Organization [facility] [address] [place] [address] Phone [phone] Care Team Providers Care Retail Marketing Specialist Name Role Phone Yury Cash MD Primary Care Provi quinten Reason for Visit * Reason Comments Urinary Tract Problem * Auth/Cert Specialty Diagnoses / Procedures Referred By Radha t Referred To Contact [place] [address] [place] [address] Phone: [phone] [facility] Emergency Department ([facility]) [address] [place] [address] Phone: tel: fax: Referral ID Status Reason Start Date Expiration Date Visits Re quested Visits Authorized [id number] Encounter Details Date Type Department Care Team (Late st Contact Info) Description 10/23/2024 10:35 AM EST - 10/23/2024 12:[address] [facility] Emergency Department ([facility]) [address] [place] [id number] Ben Mendez DO [address] [place] [address] Penile pain (Primary Dx) Discharge Disposition: Home - Self Care Allergies No known active allergiesdocumented as of this encounter (statuses as of 10/24/2024) Medications aspirin enteric coated 81 MG TBEC [...] 9:50 AM EDT 4 11/16/19 25 Active Omeprazole 20 MG Oral Capsule Delayed Release (PriLOSEC)Indica tions:Dysphagia TAKE 1 CAPSULE BY MOUTH IN THE MORNING. TAKE 1 HOUR BEFORE THE FIRST MEAL OF THE DAY. 90 Capsule 2 4 Active OneTouch Ultra 2 w/Device Kit Check blood sugars once daily 1 Kit 01/31/2024 11:32 AM EDT 4 Active Atorvastatin Calcium 40 MG Oral Tablet (Lipitor)Indicat ions:Dyslipidemi a, goal LDL below 100 TAKE ONE TABLET BY MOUTH EVERY DAY 100 Tablet 1 07/17/2024 4:51 PM EDT 4 Active Metoprolol Succinate ER 100 MG Oral Tablet Extended Release 24 Hour (toPROL XL) Take 1 Tablet by mouth in the morning and 1 Tablet before bedtime. 60 Tablet 3 4 Active Additional Information Patient taking differently: 150 mgOral BID (.AM/PM), Reported on 10/22/2024 Furosemide 40 MG Oral Tablet (Lasix) Take [...] mouth every 4 hours as needed. Active documented as of this encounter (statuses as of 10/24/2024) Active Problems Problem Noted Date Diagnosed Date [...] to breakdown of skin 09/27/2023 Atherosclerosis of [place] co ronary artery without angina pectoris 02/09/2023 [...] EDT): Followed by vascular Unspecified atherosclerosis of [place] arteries of extremities, bilateral legs 02/15/2019 Assessment & Plan (09/23/2024 11:41 PM EST): Follows with Dr Pfeiffer vascular surgery [facility] Surgery 10/08 Plan a left popliteal [...] as of this encounter (statuses as of 10/24/2024) Resolved Problems Problem Noted Date Diagnosed Date Resolved Date Paroxysmal A-fib 08/29/2024 09/20/2024 Overview (09/20/2024): duplicate Coronary artery disease invo lving [place] coronary artery of [place] heart without angina pectoris 08/29/2024 09/20/2024 Overview [...] 10/13/2018 02/15/2019 Coronary artery disease invo lving [place] heart without angina pectoris 06/01/2018 11/10/2021 DM type 2 causing neurological disease 01/24/2018 01/14/2021 Type 2 diabetes mellitus wit h diabetic nephropathy, without long-term current use of insulin 09/08/2017 09/08/2017 Atherosclerotic heart diseas e of [place] coronary artery with unspecified angina pectoris 09/08/2017 [...] as of this encounter (statuses as of 10/24/2024) Immunizations Name Administration Dates Next Due COVID-19 mRNA, LNP-s, No Pre serve, 2-Dose Series ([employer]) 08/13/2021,01/22/2021,12/27/2020 Covid-19, Mrna, Lnp-s, Pf, B ivalent, 30 Mcg, IM, 12 yrs and above ([employer]) 11/09/2022 Pneumococcal Conjugate Vacc, 13 Valent (Prevnar) [...] No 08/07/2024 Does the household have a [facility] source [facility] income? 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 Not on file Not on fi le Not on file documented as of this encounter Last Filed Vital Signs Vital Sign Reading Time Taken Comments Blood Pressure 120/60 10/23/2024 12:15 PM EST Pulse 68 10/23/2024 12:15 PM EST Temperature 36 C (96.8 F) 10/23/2024 12:15 PM EST Respiratory Rate 18 10/23/2024 12:15 PM EST Oxygen Saturation 95% 10/23/2024 12:15 PM EST Inhaled Oxygen Concentration - - Weight 97.1 kg (214 lb 1.1 oz) 10/23/2024 10:37 AM EST Height - - Body Mass Index 30.72 08/06/2024 9:11 AM EDT documented in this [...] Moses Hernandes RN documented in this encounter Discharge Instructions * Discharge Instructions* Ben Mendez DO - 10/23/2024 12:10 PM EST Please return to the emergency depart with any new worsening symptoms. We suspect your pain is likely secondary to the Ge catheter being dislodged. Please make sure using your leg strap with a Ge catheter. Please follow up with the PCP as needed for re-evaluation. documented in this encounter ED Notes * Ben Mendez DO - 10/23/2024 12:24 PM EST HISTORY OF PRESENT ILLNESS Gomez Suarez is a 88 year old male who presents to the ED for evaluation of Urinary Tract Problem.The patient was seen at 10/23/24 1043. 88-year-old male with a past medical history of type 2 diabetes, dyslipidemia, paroxysmal atrial fibrillation, CKD, and Ge presents the emergency department for evaluation of penile pain. The patient states he recently had a procedure done. Ge catheter was put in place at that time. This has done on October 08. The patient was kept the Ge catheterin. Plan for the patient to follow up with Urology to do a Ge removal trial. The patient states his catheter is still draining. He was denies any foul odor to the urine or discoloration of the urine. The patient notes increased pain in his penis. The patient was did attempt to deflate the balloon further advanced the catheter and reinflate, the patient continued to have pain. Patient denies any fevers, chest pain, shortness of breath, abdominal pain, nausea, or vomiting. The patient's allergies, past history, and medications were reviewed. PHYSICAL EXAM Initial Vitals (see all): BP 188/100 | Pulse 76 | Resp 14 | Temp 96.4 | O2 90 %, Room Air, None | Weight 97.1 kg | Height 177.8 cm | BMI 30.72 kg/m2 Initial Pain Assessment (see all): 10 (severe pain)/10 ([facility] Adult Scale 0-10 (18 years and older)) Physical Exam Constitutional: General: He is not in acute distress. Appearance: He is well-developed. He is not ill-appearing. HENT: Head: Normocephalic and atraumatic. Nose: Nose normal. Eyes: General: Right eye: No discharge. Left eye: No discharge. Conjunctiva/sclera: Conjunctivae normal. Cardiovascular: Rate and Rhythm: Normal rate and regular rhythm. Pulmonary: Effort: Pulmonary effort is normal. No respiratory distress. Abdominal: General: There is no distension. Palpations: Abdomen is soft. Tenderness: There is no abdominal tenderness. Genitourinary: Comments: Ge catheter in place Musculoskeletal: General: Normal range of motion. Cervical back: Normal range of motion. Skin: General: Skin is warm and dry. Neurological: Mental Status: He is alert and oriented to person, place, and time. Psychiatric: Mood and Affect: Mood normal. Behavior: Behavior normal. Thought Content: Thought content normal. Judgment: Judgment normal. PROCEDURES AND TREATMENTS ED Orders | ED Results MEDICAL DECISION MAKING Nursing notes and vital signs were reviewed. Differential Diagnoses Based on my history, physical exam, and evaluation, the differential includes, but is not limited, to the following diagnoses: Ge displacement, UTI. 88-year-old male with a past medical history of type 2 diabetes, dyslipidemia, paroxysmal atrial fibrillation, CKD, and Ge presents the emergency department for evaluation of penile pain. On initial exam, the patient was hypertensive. Physical exam is as noted above. Patient was given IV pain medication with improvement in his pain. The patient was Ge catheter was replaced. Patient noted improvement in his pain following the Ge catheter replacement. A urinalysis was obtained. It does show evidence of hematuria. Low suspicion for urinary tract infection atthis time. We will await urine culture. If the culture is positive, we will call in antibiotics. Suspect the patient's pain was likely secondary to displacement of the Ge catheter. The patient waseducated on making sure he is using the leg strap. The patient was advised to keep his follow up appointment with Urology. Patient was given strict return precautions. The patient understands and agrees the plan. The patient was discharged home. Clinical Impressions Penile pain Disposition Discharged. The patient's condition at disposition was: stable. Ben Mendez * Keke Williamson RN - 10/23/2024 10:39 AM EST Patient states that he recently had a procedure done where he had a vein rerouted in his left leg. A ge cath was put in place at that time. This was done on Oct 08. This morning he started with severe burning in the penis. Catheter is still draining and he denies any pulling or tugging on catheter. documented in this encounter Plan of Treatment Upcoming Encounters Date Type Department Care Team (Late st Contact Info) Description 10/25/2024 7:00 AM EST Laboratory Laboratory Patient Service [address] [phone] [place], [facility] [place] [address] [place] [address] 10/25/2024 11:00 AM EST Scheduled Telephone [facility], [facility] [address] [facility] [place] [address] [facility], [facility] [address] [place] [address] 11/01/2024 11:40 AM EST Office Visit Family [facility] [address] [place] [phone] Yury Cash MD [address] [place] [phone] 11/05/2024 8:30 AM EST Office Visit Urology, [place] [address], [place] [id number] Dariel Smith PA-C [address], [place] [phone] 11/20/2024 8:30 AM EST Home Visit [facility], [facility] [address] [facility] [place] [address] Dhara Sky, RN [address] [place] [address] 11/21/2024 8:30 AM EST Office Visit Cardiology, [facility] [address] [facility] [place] [address] Sajan Griffith PA-C [address] [place] [address] 05/29/2025 9:45 AM EDT Office Visit [facility] [address] [place] [address] Constantino Weber DO [address] [place] [address] Health Maintenance Due Date Last Done Comments [...] or Tdap) 04/02/2033 04/02/2023, 03/11/2012 Pneumococcal Vaccine: 65+ Years Completed 04/21/2015, 09/07/2010 RETIRED - COLONOSCOPY-EVERY [...] Not on filedocumented as of this encounter Procedures Procedure Name Priority Date/Time Associated Diagnosis Comments URINALYSIS, REFLEX TO CULTURE STAT 10/23/2024 11:29 AM EST URINALYSIS, REFLEX TO CULTURE (CUP ONLY) STAT 10/23/2024 11:29 AM EST URINALYSIS, REFLEX TO CULTURE (NOT FOR NEUTROPENIC PATIENTS) STAT 10/23/2024 11:29 AM EST documented in this encounter Results * (ABNORMAL) URINALYSIS, REFLEX TO CULTURE (10/23/2024 11:29 AM EST) Color, Urine Yellow Light Yellow, Yellow, Dark Yellow 10/23/2024 12:10 PM EST [facility] Clarity, Urine Clear Clear 10/23/2024 12:10 PM EST [facility] Glucose, Urine Negative Negative mg/dL 10/23/2024 12:10 PM EST [facility] Bilirubin, Urine Negative Negative 10/23/2024 12:10 PM EST [facility] Ketone, Urine Negative Negative mg/dL 10/23/2024 12:10 PM EST [facility] Specific [place], Urine 1.012 1.003 - 1.030 10/23/2024 12:10 PM EST [facility] Blood, Urine Large(A) Negative 10/23/2024 12:10 PM EST [facility] pH, Urine 8.5(H) 5.0 - 7.5 Units 10/23/2024 12:10 PM EST [facility] Protein, Urine 100(A) Negative mg/dL 10/23/2024 12:10 PM EST [facility] Urobilinogen, Urine 0.2 0.2, 1.0 mg/dL 10/23/2024 12:10 PM EST [facility] Nitrite, Urine Negative Negative 10/23/2024 12:10 PM EST [facility] Esterase, Urine Moderate(A) Negative 10/23/2024 12:10 PM EST [facility] RBC, Urine 50+(A) 0 - 2 /HPF 10/23/2024 12:10 PM EST [facility] Comment:Changed result: Prev iously reported as 0-2 /HPF on 10/23/2024 at 1147 EST. WBC, Urine 6-9(A) 0 - 2 /HPF 10/23/2024 12:10 PM EST LABORATORY [facility] Comment:Changed result: Prev iously reported as 0-2 /HPF on 10/23/2024 at 1147 EST. Bacteria, Urine 0-25 0 - 25 /HPF 10/23/2024 12:10 PM EST LABORATORY [facility] Culture, Urine 10/23/2024 12:10 PM EST LABORATORY [facility] Comment:Culture not indicate d by urinalysis results Urine Urine specimen / Unknown Non-blood Collection / Unknown 10/23/2024 11:29 AM EST 10/23/2024 11:34 AM EST Ben Mendez LAB URINE ORDERABLES Edite d Result - Final Performing Organization Address City/[facility]/ZIP Co de Phone Number LABORATORY [address] [address] * URINALYSIS, REFLEX TO CULTURE (CUP ONLY) (10/23/2024 11:29 AM EST) Urinalysis, Reflex to Culture Specimen Specimen collected and received 10/23/2024 11:41 AM EST LABORATORY [facility] Urine Urine specimen / Unknown Non-blood Collection / Unknown 10/23/2024 11:29 AM EST 10/23/2024 11:34 AM EST eBn Mendez LAB URINE ORDERABLES Final Result Performing Organization Address [facility] de Phone Number LABORATORY [address] [phone] documented in this encounter Visit Diagnoses Diagnosis Paroxysmal atrial fibrillation (HCC)- Primary Atrial fibrillation Atherosclerosis of [place] artery of both lower extremities with other clinical manifestation (HCC) Hyperlipidemia associated with type 2 diabetes mellitus (HCC) Abdominal aortic aneurysm (AAA) without rupture, unspecified part (HCC) Aneurysm of ascending aorta without rupture (HCC) 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 (HCC)- Primary Type 2 diabetes mellitus with diabetic neuropathy, without long-term current use of insulin (HCC) Dyslipidemia, goal LDL below 70 Other and unspecified hyperlipidemia Paroxysmal atrial fibrillation (HCC) Atrial fibrillation Advanced care planning/counseling discussion Other specified counseling Penile pain- Primary Unspecified disorder of penis documented in this encounter Administered Medications Inactive Administered Medications - up to 3 most recent administrations Medication Order MAR Action Action Date Dose Rate Site HYDROmorphone (Dilaudid) inj 1 mg 1 mg, Intravenous, ONCE, On Tue10/23/24 at 1145, For 1 dose Given 10/23/2024 11:09 AM EST 1 mg documented in this encounter Active and Recently Administered Medications Times are shown in EST. Scheduled Medication Order 10/21/2024 10/22/2024 10/23/2024 HYDROmorphone (Dilaudid) inj 1 mg (COMPLETED) 1 mg, Intravenous, ONCE, On Tue10/23/24 at 1145, For 1 dose 1109 (Given - Provid er: Mariel Walker RN) documented in this encounter Advance Directives * [...] the patient have Health Care Power of Investigator Internal Affairs? Yes, not currently available Care Teams Retail Marketing Specialist Relationship Specialty Start Date End Date Yury Cash MD [address] [place], [place] [address] [phone] PCP - General Family Medicine 07/19/24 documented as of this encounter
--- OUTSIDE RECORDS SUMMARY | 2024-11-07 07:57 | External Medical Summary | Summary of Care ---
Author Name Unknown Organization [facility] Address [address] [place] [facility] [place] [address] Phone [phone] Care Team Providers Care Wire Walker Name Role Phone Yury Cash MD Primary [facility] Reason for Visit * Reason Onset Date Comments [facility]: Maintenance 10/25/2024 Encounter Details Date Type Department Care Team (Late st Contact Info) Description 10/25/2024 11:00 AM EST Scheduled Telephone [facility], [facility] [address] [facility] [place] [address] [facility], Nurse [facility] [address] [facility] [place] [address] Allergies No known active allergiesdocumented as of this encounter (statuses as of 10/25/2024) Medications aspirin enteric coated 81 MG TBEC [...] THE DAY. 90 Capsule 2 4 Active [employer] Ultra 2 w/Device Kit Check blood sugars [...] BY MOUTH IN THE MORNING 90 Tablet 11/27/202 4 Active Docusate Sodium 100 MG Oral Tablet Take 1 Tablet by mouth as needed for Constipation. Active oxyCODONE HCl 5 MG Oral Capsule (Oxy IR) Take 1 Capsule by mouth every 4 hours as needed. Active documented as of this encounter (statuses as of 10/25/2024) Active Problems Problem Noted Date Diagnosed Date [...] to breakdown of skin 09/27/2023 Atherosclerosis of [place] co ronary artery without angina pectoris 02/09/2023 [...] EDT): Followed by vascular Unspecified atherosclerosis of [place] arteries of extremities, bilateral legs 02/15/2019 Assessment & Plan (09/23/2024 11:41 PM EST): Follows with Dr Pfeiffer vascular surgery [facility] Surgery 10/08 Plan a left popliteal [...] as of this encounter (statuses as of 10/25/2024) Resolved Problems Problem Noted Date Diagnosed Date Resolved Date Paroxysmal A-fib 08/29/2024 09/20/2024 Overview (09/20/2024): duplicate Coronary artery disease invo lving [place] coronary artery of [place] heart without angina pectoris 08/29/2024 09/20/2024 Overview (09/20/2024): duplicate Atrial fibrillation with RVR 07/30/2024 08/08/2024 Cellulitis of left lower extremity 07/30/2024 08/08/2024 Physical deconditioning 12/27/2023 10/07/2024 Ambulatory dysfunction 12/27/202308/08 Elevated troponin 12/23/2023 08/08/2024 [...] 10/13/2018 02/15/2019 Coronary artery disease invo lving [place] heart without angina pectoris 06/01/2018 11/10/2021 DM type 2 causing neurological disease 01/24/2018 01/14/2021 Type 2 diabetes mellitus wit h diabetic nephropathy, without long-term current use of insulin 09/08/2017 09/08/2017 Atherosclerotic heart diseas e of [place] coronary artery with unspecified angina pectoris 09/08/2017 [...] as of this encounter (statuses as of 10/25/2024) Immunizations Name Administration Dates Next Due COVID-19 mRNA, LNP-s, No Pre serve, 2-Dose Series ([employer]) 08/13/2021,01/22/2021,12/27/2020 Covid-19, Mrna, Lnp-s, Pf, B ivalent, 30 Mcg, IM, 12 yrs and above ([employer]) 11/09/2022 Pneumococcal Conjugate Vacc, 13 Valent (Prevnar) [...] 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 [facility] ED Follow Up Patient Overview: Patient Name: Gomez Suarez Discharging Facility: [facility] Current [facility] Status: Currently Enrolled - Focused Care Management Outpatient Risk of Hospital Admission and ED Visit: 44 % ED Clinical Background: ED Discharge Diagnosis: Other: Urinary symptoms, Penile pain, Bañuelos cath issues Objective Data 10/23/2024 12:15 PM 10/23/2024 11:47 AM 10/23/2024 11:00 AM 10/23/2024 10:37 AM 10/22/2024 3:30 PM VIT[facility] ACROSS ENCOUNTERS BP 120/60 118/59 163/109 188/100 130/64 Pulse 68 70 72 76 62 Weight 97.1 kg BMI 30.72 kg/m2 Disposition Overview: Remote Patient Monitoring Given: NO Remote Patient Monitoring Oxygen Requirements: NO supplemental oxygen needs identified with status of: NO DME needs identified DME Needs: NO DME needs identified with status of: NO DME needs identified Medication Review: No medication or dose adjustments made during acute episode Current Concerns: [place], message left for callback to [facility] with update on condition or any new or ongoing concerning symptoms. [phone] # option #1 provided Scheduled follow-up includes: ED to Home follow up complete with appropriate follow up scheduled. Future Visits Scheduled: Future Appointments-next 60 days Date/Time Provider Specialty Dept Phone 10/25/2024 11:00 AM [facility], Nurse [facility] [phone] 11/01/2024 11:40 AM (Arrive by 11:25 AM) Yury Cash MD Family Medicine [phone] 11/05/2024 8:30 AM Dariel Smith PA-C Urology [phone] 11/20/2024 8:30 AM Dhara Sky RN [facility] [phone] 11/21/2024 8:30 AM (Arrive by 8:15 AM) Sajan Griffith PA-C Cardiology [phone] 05/29/2025 9:45 AM Constantino Weber DO Ophthalmology [phone] Shae Wright, RN Telehealth Scheduling Guidelines Current Health Monitor Ordering Guidelines documented in this encounter Plan of Treatment Upcoming Encounters Date Type Department Care Team (Late st Contact Info) Description 11/01/2024 11:40 AM EST Office Visit [facility] [address] [place] [phone] Yury Cash MD [address] [place] [phone] 11/05/2024 8:30 AM EST Office Visit Urology, [place] [address] [place] [address] Dariel Smith PA-C [address] [place] [address] 11/20/2024 8:30 AM EST Home Visit [facility] at [facility] [address] [facility] [place] [address] Dhara Sky, RN [address] [facility] [place] [address] 11/21/2024 8:30 AM EST Office Visit Card[facility], [facility] [address] [facility] [place] [address] Sajan Griffith PA-C [address] [facility] [address] 05/29/2025 9:45 AM EDT Office Visit [facility] [address] [place], [place] [phone] Constantino Weber DO [address] [place], [place] [address] Health Maintenance Due Date Last Done Comments [...] the patient have Health Care Power of Vocational Education Professional? Yes, not currently available Care Teams Wire Walker Relationship Specialty Start Date End Date Yury Cash MD [address] [place] [phone] PCP - General Family Medicine 07/19/24 documented as of this encounter
--- OUTSIDE RECORDS SUMMARY | 2024-11-07 07:57 | External Medical Summary | Summary of Care ---
Author Name Unknown Organization [facility] Address [address] [place] [address] Phone [phone] Care Team Providers Care Facility Maintenance Technician Name Role Phone Doe Cash MD Primary Care Provi quinten Reason for Visit * Reason Comments eRx-Medication Refill Encounter Details Date Type Department Care Team ([facility] Contact Info) Description 10/27/[address] [phone] Eron Tovar, DO [address] [place] [address] Dysphagia Allergies No known active allergiesdocumented as of this encounter (statuses as of 10/31/2024) Medications aspirin enteric coated 81 MG TBEC [...] 3 4 9:50 AM EDT 11/17/19 24 025 Active OneTouch Ultra 2 w/Device Kit Check blood sugars once daily 1 Kit 4 11:32 AM EDT 01/31/20 24 Active Atorvastatin Calcium 40 MG Oral Tablet (Lipitor)Indica tions:Dyslipide michell, goal LDL below 100 TAKE ONE TABLET BY MOUTH EVERY DAY 100 Tablet 1 4 3:21 PM EST 07/16/20 24 Active Metoprolol Succinate ER 100 MG Oral Tablet Extended Release 24 Hour (toPROL XL) Take 1 Tablet by mouth in the morning and 1 Tablet before bedtime. 60 Tablet 3 08/02/20 24 Active Additional Information Patient taking differently: 150 [...] 1 4 2:24 PM EDT 08/14/20 24 025 Active Apixaban 5 MG Oral Tablet (Eliquis)Indica [...] MEAL OF THE DAY. 90 Capsule 1 10/31/19 25 Active Omeprazole 20 MG Oral Capsule Delayed Release (PriLOSEC)Indic ations:Dysphagi a TAKE 1 CAPSULE BY MOUTH IN THE MORNING. TAKE 1 HOUR BEFORE THE FIRST MEAL OF THE DAY. 90 Capsule 2 11/17/19 24 025 Discontinued documented as of this encounter (statuses as of 10/31/2024) Active Problems Problem Noted Date Diagnosed Date [...] to breakdown of skin 09/27/2023 Atherosclerosis of [place] co ronary artery without angina pectoris 02/09/2023 [...] EDT): Followed by vascular Unspecified atherosclerosis of [place] arteries of extremities, bilateral legs 02/15/2019 Assessment [...] as of this encounter (statuses as of 10/31/2024) Resolved Problems Problem Noted Date Diagnosed Date Resolved Date Paroxysmal A-fib 08/29/2024 09/20/2024 Overview (09/20/2024): duplicate Coronary artery disease invo lving que[place] coronary artery of [place] heart without angina pectoris 08/29/2024 09/20/2024 Overview [...] 10/13/2018 02/15/2019 Coronary artery disease invo lving [place] heart without angina pectoris 06/01/2018 11/10/2021 DM type 2 causing neurological disease 01/24/2018 01/14/2021 Type 2 diabetes mellitus wit h diabetic nephropathy, without long-term current use of insulin 09/08/2017 09/08/2017 Atherosclerotic heart diseas e of que[place] coronary artery with unspecified angina pectoris 09/08/2017 [...] as of this encounter (statuses as of 10/31/2024) Immunizations Name Administration Dates Next Due COVID-19 mRNA, LNP-s, No Pre serve, 2-Dose Series ([employer]) 08/13/2021,01/22/2021,12/27/2020 Covid-19, Mrna, Lnp-s, Pf, B ivalent, 30 Mcg, IM, 12 yrs and above ([employer]) 11/09/2022 Pneumococcal Conjugate Vacc, 13 Valent (Prevnar) [...] 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 TAKE 1 HOUR BEFORE THE FIRST MEAL OF THE DAY. Authorizing Provider: DOE CASH * Telephone Encounter - Estrellita Parrish [facility] - 10/29/2024 2:03 PM ESTPending Prescriptions: Disp Refills Omeprazole 20 MG Oral Capsule Delayed Rele*90 Cap*1 Sig: TAKE 1 CAPSULE BY MOUTH IN THE MORNING. TAKE 1 HOUR BEFORE THE FIRST MEAL OF THE DAY. * Telephone Encounter - Estrellita Parrish RPh - 10/29/2024 2:03 PM EST Unable to authorize medication refills for pended medication(s) at this time. Part of the protocol criteria used for refill authorization was not satisfied. Patient needs magnesium WNL (last level low). Please approve if appropriate. Thanks, Estrellita Parrish Clinical Pharmacist [facility] ([facility]) [phone] 10/29/2024, 2:03 PM * Telephone Encounter - Estrellita Parrish RPh - 10/29/2024 2:02 PM EST Did you pend patient's preferred pharmacy and medication before forwarding?yes Pharmacy: [facility] Pending Prescriptions: Disp Refills Omeprazole 20 MG Oral Capsule Delayed Rel*90 Cap*1 Sig: TAKE 1 CAPSULE BY MOUTH IN THE MORNING. TAKE 1 HOUR BEFORE THE FIRST MEAL OF THE DAY. Last Visit: 08/14/2024 (in office), Visit date not found (telemedicine) Next Visit: 11/01/2024 If no future appointments scheduled, and last appointment is greater than a year ago, please schedule patient for a follow-up appointment Last date the medication was ordered: 11/17/23 Is this request for a controlled substance?No Urine Drug Screen:No results found. However, due to the size of the patient record, not all encounters were searched. Please check Results Review for a complete set of results. Patient Phone Numbers Labs: Lab Results Component Value Date/Time CREAT 1.0 10/01/2024 03:22 PM CREAT 0.91 02/20/2024 12:00 AM CREAT 1.0 06/12/2020 02:37 PM CREAT 1.2 05/28/2020 08:46 AM POTASSIUM 3.9 10/08/2024 05:58 AM POTASSIUM 4.7 05/28/2020 08:46 AM TSH 3.75 03/07/2024 08:41 AM TSH 4.37 (H) 09/01/2010 04:15 PM LDL 59 01/06/2024 07:28 AM LDL 69 05/28/2020 08:46 AM LDL UNINTERPRETABLE RESULT 06/27/2019 07:13 AM ALT 48 10/01/2024 03:22 PM ALT 56 (H) 06/27/2019 07:13 AM HGBA1C 8.2 (H) 10/08/2024 05:58 AM HGBA1C 7.1 (H) 05/28/2020 08:46 AM documented in this encounter Plan of Treatment Upcoming Encounters Date Type Department Care Team (Late st Contact Info) Description 11/01/2024 11:40 AM EST Office Visit [facility] [address] [place] [phone] Doe Cash MD [address] [place] [phone] 11/05/2024 9:30 AM EST Office Visit Urology, [place] [address] [place], [place] [phone] Bess Loredo PA-C [address] [place] [address] 11/20/2024 8:30 AM EST Home Visit [facility] [address] [facility] [place] [address] Dhara Sky, RN [facility] [place] [address] 11/21/2024 8:30 AM EST Office Visit Cardiology, [facility] [address] [facility] [place] [address] Sajan Griffith PAOnofreC [facility] [place] [address] 05/29/2025 9:45 AM EDT Office Visit [facility] [address] [place], [place] [phone] Constantino Weber DO [address] [place] [address] Health Maintenance Due Date Last Done Comments Colonoscopy 01/20/2016 01/19/2011, 12/29, 01/07/2011, Additional history exists Albumin/Creatinine Ratio 05/07/20232 022, 04/11/2021, 05/28/2020, Additional history exists COVID-19 Vaccine ( season) 2024 11/09/2022, 08/13/2021, 01/22/2021, Additional history exists HbA1c 04/08/2025 10/08/2024, 12/0 12/2023, 08/14/2024, Additional history exists B-12 05/17/2025 05/17/2024, 05/0 05/2024, 07/07/2023, Additional history exists Diabetic Eye [...] fibrillation (HCC)- Primary Atrial fibrillation 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 other clinical manifestation (HCC) Hyperlipidemia associated with type 2 diabetes mellitus (HCC) Abdominal aortic aneurysm (AAA) without rupture, unspecified part (HCC) Aneurysm of ascending aorta without rupture (HCC) 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 Yes, not currently available Care Teams Facility Maintenance Technician Relationship Specialty Start Date End Date Doe Cash MD [address] [place] [phone] PCP - General Family Medicine 07/19/24 documented as of this encounter
--- OUTSIDE RECORDS SUMMARY | 2024-11-07 07:57 | External Medical Summary ---
Author Name Unknown Address Unknown Organization K01:[facility] [place] [address] [facility] [place] [address] Laboratory Report Ordering Provider Test Date Status IGNACIO AZAR 11/01/2024 12:26:02 Final Observation Date Value Abnormality Reference (Units ) Status BUN 11/01/2024 12:26:02 15 6-20 (mg/dL) Final Creatinine 11/01/2024 12:26:02 0.9 0.6-1.2 (mg/dL) Final Glomerular filtration rate/1.73 sq M.predicted [Volume Rate/Area] in Serum, Plasma or Blood by Creatinine-based formula (CKD-EPI) 11/01/2024 12:26:02 79 >=60 (mL/min) Final eGFR is calculated based on the CKD-EPI 2020 equation. Sodium 11/01/2024 12:26:02 140 135-146 (m mol/L) Final Potassium 11/01/2024 12:26:02 4.6 3.5-5.1 (m mol/L) Final Cl 11/01/2024 12:26:02 95 Below low normal 98- 107 (mmol/L) Final CO2 11/01/2024 12:26:02 28 22-32 (mmo l/L) Final Anion gap 11/01/2024 12:26:02 17 Above high normal 7- 15 (mmol/L) Final Glucose 11/01/2024 12:26:02 127 Above high normal 70 -120 (mg/dL) Final Albumin 11/01/2024 12:26:02 4.6 3.8-5.0 (g /dL) Final AST (Aspartate aminotransferase) 11/01/2024 12:26:02 30 10-50 (U/L) Fin al Alk Phos 11/01/2024 12:26:02 98 35-130 (U/ L) Final Bilirubin, Total 11/01/2024 12:26:02 0.6 <=1 .2 (mg/dL) Final Calcium 11/01/2024 12:26:02 9.9 8.4-10.2 ( mg/dL) Final Protein 11/01/2024 12:26:02 7.2 6.0-8.3 (g /dL) Final ALT (Alanine aminotransferase) 11/01/2024 12:26:02 24 10-50 (U/L) Jc abreu Performing Location [facility] [place] [address] [facility] [address]
--- OUTSIDE RECORDS SUMMARY | 2024-11-07 07:57 | External Medical Summary | Summary of Care ---
Author Name Unknown Organization [facility] Address [address] [place] [address] Phone [phone] Care Team Providers Care Miller Wood Flour Name Role Phone Yury Cash MD Primary Care Provi [facility] Reason for Visit * Reason Onset Date Comments [facility]: Maintenance 10/23/2024 Encounter Details Date Type Department Care Team (Late st Contact Info) Description 10/23/2024 Telephone [facility], [facility] [address] [facility] [place] [address] Sonja Mckeon, RN [address] [place], [place] [phone] [facility]: Maintenance Allergies No known active allergiesdocumented as of this encounter (statuses as of 10/23/2024) Medications aspirin enteric coated 81 MG TBEC [...] THE DAY. 90 Capsule 2 4 Active Arius ResearchTouch Ultra 2 w/Device Kit Check blood sugars [...] as of this encounter (statuses as of 10/23/2024) Active Problems Problem Noted Date Diagnosed Date [...] to breakdown of skin 09/27/2023 Atherosclerosis of [place] co ronary artery without angina pectoris 02/09/2023 [...] EDT): Followed by vascular Unspecified atherosclerosis of [place] arteries of extremities, bilateral legs 02/15/2019 Assessment & Plan (09/23/2024 11:41 PM EST): Follows with Dr Pfeiffer vascular surgery [facility] Surgery 10/08 Plan a left popliteal [...] as of this encounter (statuses as of 10/23/2024) Resolved Problems Problem Noted Date Diagnosed Date Resolved Date Paroxysmal A-fib 08/29/2024 09/20/2024 Overview (09/20/2024): duplicate Coronary artery disease invo lving [place] coronary artery of [place] heart without angina pectoris 08/29/2024 09/20/2024 Overview [...] 10/13/2018 02/15/2019 Coronary artery disease invo lving [place] heart without angina pectoris 06/01/2018 11/10/2021 DM type 2 causing neurological disease 01/24/2018 01/14/2021 Type 2 diabetes mellitus wit h diabetic nephropathy, without long-term current use of insulin 09/08/2017 09/08/2017 Atherosclerotic heart diseas e of [place] coronary artery with unspecified angina pectoris 09/08/2017 [...] as of this encounter (statuses as of 10/23/2024) Immunizations Name Administration Dates Next Due COVID-19 mRNA, LNP-s, No Pre serve, 2-Dose Series ([employer]) 08/13/2021,01/22/2021,12/27/2020 Covid-19, Mrna, Lnp-s, Pf, B ivalent, 30 Mcg, IM, 12 yrs and above ([employer]) 11/09/2022 Pneumococcal Conjugate Vacc, 13 Valent (Prevnar) [...] 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 [...] 9:07 AM SAMANTHAT Moses Villafana RN * Because of a [...] encounter Miscellaneous Notes * Telephone Encounter - Sonja Mckeon RN - 10/23/2024 1:17 PM EST [facility] ED [employer] Notification Date: 10/23/2024 Time: 1:17 PM Ga Subprogram: No data was found [facility] Episode Start Date: No linked episodes [facility] Enrollment Status: Currently Enrolled Action Taken on [employer] Alert and Outcome of ED Visit: Review ONLY: Phone Call Follow Up ONLY Scheduled Sonja Mckeon RN documented in this encounter Plan of Treatment Upcoming Encounters Date Type Department Care Team ([facility] Contact Info) Description 10/25/2024 7:00 AM EST Laboratory Laboratory Patient Service [address] [phone] [address] [address] 10/25/2024 11:00 AM EST Scheduled Telephone [facility], [address] [address] [facility], Nurse [address] [address] 11/01/2024 11:40 AM EST Office Visit [address] [phone] Yury Cash MD [address] [place] [phone] 11/05/2024 8:30 AM EST Office Visit Urology, [place] [address] [place] [address] Dariel Smith PA-C [address] [place], [place] [phone] 11/20/2024 8:30 AM EST Home Visit [facility] [address] [place] [address] Dhara Sky, RN [address] [place] [address] 11/21/2024 8:30 AM EST Office Visit Cardiology, [facility] [address] [place] [address] Sajan Griffith PAOnofreC [address] [place] [address] 05/29/2025 9:45 AM EDT Office Visit [facility] [address] [place] [address] Constantino Weber DO [address] [place] [address] Health Maintenance Due Date Last Done Comments Colonoscopy 01/20/2016 01/19/2011, 12/29, 01/07/2011, Additional history exists Albumin/Creatinine Ratio 05/07/2023 022, 04/11/2021, 05/28/2020, Additional history exists COVID-19 Vaccine ( season) 2024 11/09/2022, 08/13/2021, 01/22/2021, Additional history exists HbA1c 04/08/2025 10/08/2024, 1212/2023, 08/14/2024, Additional history exists B-12 05/17/2025 05/17/2024, 05/05/2024, 07/07/2023, Additional history exists Diabetic Eye Exam [...] the patient have Health Care Power of Amphibious Operations Officer? Yes, not currently available Care Teams Miller Wood Flour Relationship Specialty Start Date End Date Yury Cash MD [address] [place] [phone] PCP - General Family Medicine 07/19/24 documented as of this encounter
--- OUTSIDE RECORDS SUMMARY | 2024-11-07 07:57 | External Medical Summary | Summary of Care ---
Author Name Unknown Organization [facility] Address [address] [facility] [address] Phone [phone] Care Team Providers Care Scallop Dredger Name Role Phone Yury Cash MD Primary Care [facility] Encounter Details Date Type Department Care Team (Late st Contact Info) Description 10/24/2024 Population Health External Data Unspecified Department Allergies [...] to breakdown of skin 09/27/2023 Atherosclerosis of [place] co ronary artery without angina pectoris 02/09/2023 [...] EDT): Followed by vascular Unspecified atherosclerosis of [place] arteries of extremities, bilateral legs 02/15/2019 Assessment [...] (09/20/2024): duplicate Coronary artery disease invo lving [place] coronary artery of [place] heart without angina pectoris 08/29/2024 09/20/2024 Overview [...] of urine 12/22/2023 Urinary tract infection 12/22/2023 1007/2024 Pneumonia of left lower lobe due to infectious organism 12/22/2023 08/06/2024 Cellulitis of left lower extremity 12/23/2021 12/25/2023 Type 2 diabetes mellitus wit h hemoglobin A1c goal of less than 7.5% 11/14/2019 01/14/2021 Skin ulcer of toe of left fo ot, limited to breakdown of skin 10/13/2018 02/15/2019 Coronary artery disease invo lving [place] heart without angina pectoris 06/01/2018 11/10/2021 DM type 2 causing neurological disease 01/24/2018 01/14/2021 Type 2 diabetes mellitus wit h diabetic nephropathy, without long-term current use of insulin 09/08/2017 09/08/2017 Atherosclerotic heart diseas e of [place] coronary artery with unspecified angina pectoris 09/08/2017 [...] mRNA, LNP-s, No Pre serve, 2-Dose Series ([employer]) 08/13/2021,01/22/2021,12/27/2020 Covid-19, Mrna, Lnp-s, Pf, B ivalent, [...] 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 [...] 7:00 AM EST Laboratory Laboratory [facility], [address] [phone] Fernanda Garcia [address] [place] [address] 10/25/2024 11:00 AM EST Scheduled Telephone [facility], [facility] [address] [facility] [place] [address] [facility] [address] [facility] [place] [address] 11/01/2024 11:40 AM EST Office Visit [facility] [address] [place] [phone] Yury Cash MD [address] [place] [phone] 11/05/2024 8:30 AM EST Office Visit Urology, [place] [address] [place], [place] [phone] Dariel Smith PA-C [address] [place], [place] [phone] 11/20/2024 8:30 AM EST Home Visit [facility], [facility] [address] [facility] [place] [address] Dhara Sky, RN [address] [place] [address] 11/21/2024 8:30 AM EST Office Visit Cardiology, [facility] [address] [facility] [place] [address] Sajan Griffith PA-C [address] [facility] [place], [place] [address] 05/29/2025 9:45 AM EDT Office Visit [facility] [address] [place], [place] [phone] Constantino Weber DO [address] [place], [place] [phone] Health Maintenance Due Date Last Done Comments [...] the patient have Health Care Power of Printing Equipment Mechanic? Yes, not currently available Care Teams Scallop Dredger Relationship Specialty Start Date End Date Yury Cash MD [address] [place] [phone] PCP - General Family Medicine 07/19/24 documented as of this encounter
--- OUTSIDE RECORDS SUMMARY | 2024-11-07 07:57 | External Medical Summary ---
Author Name Unknown Address Unknown Organization K01:[facility] [place] - [address] [place] [address] Laboratory Report Ordering Provider Test Date Status IGNACIO AZAR 11/01/2024 12:26:02 Final Observation Date Value Abnormality Reference (Units ) Status Vitamin B12 11/01/2024 12:26:02 [phone] (pg/mL) Final Performing Location LAB[facility]ATORY [facility] - [address] [place] [address]
--- OUTSIDE RECORDS SUMMARY | 2024-11-07 07:58 | External Medical Summary | Summary of Care ---
Author Name Unknown Organization [facility] Address [address] [place] [address] Phone [phone] Care Team Providers Care Front End Alignment Specialist Name Role Phone Yury Cash MD [facility] Encounter Details Date Type Department Care Team (Late st Contact Info) Description 10/22/2024 5:30 PM EST Home Visit [facility], [facility] [address] [place] [address] Dhara Sky, RN [address] [place] [address] Allergies No known active allergiesdocumented as of this encounter (statuses as of 10/22/2024) Medications aspirin enteric coated 81 MG TBEC [...] 90 Tablet 3 08/09/2024 9:50 AM EDT 11/17/19 24 025 Active Omeprazole 20 MG Oral Capsule Delayed Release (PriLOSEC)Indica tions:Dysphagia TAKE 1 CAPSULE BY MOUTH IN THE MORNING. TAKE 1 HOUR BEFORE THE FIRST MEAL OF THE DAY. 90 Capsule 2 11/17/19 Active OralWiseuch Ultra 2 w/Device Kit Check blood sugars once daily 1 Kit 01/31/2024 11:32 AM EDT 01/31/20 24 Active Atorvastatin Calcium 40 MG Oral Tablet (Lipitor)Indicat ions:Dyslipidemi a, goal LDL below 100 TAKE ONE TABLET BY MOUTH EVERY DAY 100 Tablet 1 07/17/2024 4:51 PM EDT 07/16/20 24 Active Metoprolol Succinate ER 100 MG Oral Tablet Extended Release 24 Hour (toPROL XL) Take 1 Tablet by mouth in the morning and 1 Tablet before bedtime. 60 Tablet 3 08/02/20 Active Additional Information Patient taking differently: 150 [...] 270 Tablet 1 08/14/2024 2:24 PM EDT 08/14/20 24 025 Active Apixaban 5 MG Oral Tablet (Eliquis)Indicat [...] 400 Tablet 1 10/02/2024 10:41 AM EST 09/17/20 24 Active Mirabegron [...] mouth every 4 hours as needed. Active Bisacodyl 10 MG Rectal Suppository (Dulcolax) Administer 1 Suppository into the rectum daily as needed for Constipation. 024 Discontin ued(Medic ation List Clean Up) HYDROcodone-Acet aminophen 10-325 MG Oral Tablet Take 1 Tablet by mouth 2 times a day as needed for Pain, Severe. 20 Tablet 10/01/20 024 Discontin ued(Medic ation List Clean Up) documented as of this encounter (statuses as of 10/22/2024) Active Problems Problem Noted Date Diagnosed Date [...] to breakdown of skin 09/27/2023 Atherosclerosis of [place] co ronary artery without angina pectoris 02/09/2023 [...] EDT): Followed by vascular Unspecified atherosclerosis of [place] arteries of extremities, bilateral legs 02/15/2019 Assessment & Plan (09/23/2024 11:41 PM EST): Follows with Dr Pfeiffer vascular surgery [facility] Surgery 10/08 Plan a left popliteal [...] prophylaxis Idiopathic chronic gout of multiple sites franchesca reid 10/14/2014 Hx of nonmelanoma skin cancer [...] as of this encounter (statuses as of 10/22/2024) Resolved Problems Problem Noted Date Diagnosed Date Resolved Date Paroxysmal A-fib 08/29/2024 09/20/2024 Overview (09/20/2024): duplicate Coronary artery disease invo lving [place] coronary artery of [place] heart without angina pectoris 08/29/2024 09/20/2024 Overview [...] 10/13/2018 02/15/2019 Coronary artery disease invo lving [place] heart without angina pectoris 06/01/2018 11/10/2021 DM type 2 causing neurological disease 01/24/2018 01/14/2021 Type 2 diabetes mellitus wit h diabetic nephropathy, without long-term current use of insulin 09/08/2017 09/08/2017 Atherosclerotic heart diseas e of [place] coronary artery with unspecified angina pectoris 09/08/2017 [...] as of this encounter (statuses as of 10/22/2024) Immunizations Name Administration Dates Next Due COVID-19 mRNA, LNP-s, No Pre serve, 2-Dose Series ([employer]) 08/13/2021,01/22/2021,12/27/2020 Covid-19, Mrna, Lnp-s, Pf, B ivalent, 30 Mcg, IM, 12 yrs and above ([employer]) 11/09/2022 Pneumococcal Conjugate Vacc, 13 Valent (Prevnar) [...] 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 (5 years old or older) Answer Date of Assessment Author No 07/30/2024 9:07 AM EDMoses Velásquez RN * Because of a physical, mental, [...] Moses Hernandes RN documented in this encounter Progress Notes * Dhara Sky RN - 10/22/2024 3:33 PM EST Images from the original note were not included. Current Concerns: Pt seen for JALEEL #1 Was to have f/u at pcp office today but had to cancel because their driveway is covered in snow andice and their vehicle is broke down on it Pt was admitted to [facility] on 10/08/24 for a scheduled LLE bypass for atherosclerosis of [place] arteries of left leg Discharged home on 10/16/24 Has ge catheter in place and has been draining clear dark yellow urine No hematuria noted Pt was complaining that it was burning since it was placed Catheter repositioned during visit today - 16 Fr 10ml ge 10ml balloon deflated, catheter advanced further and reinflated balloon Pt had no complaints during this Pt has multiple sites from procedure Left medial malleolus: Left medial thigh/groin: Medial LLE: Anterior LLE: Pt's has been applying betadine. It is to be covered with kerlix and melanie wraps toes to mid thigh, change daily. Leg elevation whenever sitting Done during visit today but reports he does not like to have the wraps on and does not usuallykeep them on. Reiterated these instructions to pt and . Pt is to be getting HH services thru [facility] - nurse has not visit yet d/t driveway conditions and pt has refused PT and OT Has f/u with surgeon next Tuesday on 10/30- Durga Has urology appt on 11/05 - in [place] Physical Exam: Physical Exam Constitutional: General: He is not in acute distress. Cardiovascular: Rate and Rhythm: Normal rate. Rhythm irregular. Pulses: Normal pulses. Heart sounds: Normal heart sounds. Pulmonary: Effort: Pulmonary effort is normal. Breath sounds: Normal breath sounds. Abdominal: General: Bowel sounds are normal. Palpations: Abdomen is soft. Musculoskeletal: Right lower leg: Edema (trace) present. Left lower leg: Edema (+1) present. Skin: General: Skin is warm and dry. Neurological: Mental Status: He is alert and oriented to person, place, and time. Review of Systems: Review of Systems Constitutional: Negative. HENT: Negative. Eyes: Negative. Respiratory: Negative. Cardiovascular: Positive for leg swelling. Gastrointestinal: Negative. Genitourinary: Negative. Ge cath draining clear dark yellow urine- repositioned during visit d/t burning and no complaints Musculoskeletal: Positive for arthralgias and gait problem. Skin: Positive for wound. Neurological: Positive for weakness (legs, general). Psychiatric/Behavioral: Negative. Care Plan Goal Progress: Patient's pain & discomfort is manageable. (Progressing) Start: 08/07/24 Expected End: 11/30/24 Patient will remain free from injury. (Progressing) Start: 08/07/24 Expected End: 11/30/24 Orders Placed: No orders of the defined types were placed in this encounter. Medications Given: Care Gaps: Care Gaps Care gaps closed this contact: Medications;Plan of Care (POC);Education;Home based procedures (10/22/24 7109) Type of education: Clinical/disease (10/22/24 672) Procedure performed: Wound care (10/22/24 742) Type of medication care gap: Medication adherence (10/22/24 819) Type of plan of care (POC) care gap: Adjustment of plan of care (POC) and/or Integrated Care Plan (ICP);Education and review of exacerbation plan (10/22/24 066) documented in this encounter Plan of Treatment Upcoming Encounters Date Type Department Care Team (Late st Contact Info) Description 10/25/2024 7:00 AM EST Laboratory Laboratory Patient Service [address] [phone] [place], [facility] [address] [place] [address] 11/01/2024 11:40 AM EST Office Visit [address] [phone] Yury Cash MD [address] [place] [phone] 11/05/2024 8:30 AM EST Office Visit Urology, [place] [address], [place] [phone] Dariel Smith PA-C [address], [place] [phone] 11/20/2024 8:30 AM EST [facility] [address] [facility] [place] [address] Dhara Sky, RN 132 [place] [address] 11/21/2024 8:30 AM EST Office Visit Cardiology, [facility] [address] [facility] [place] [address] Sajan Griffith PA-C [address] [place] [place] [address] 05/29/2025 9:45 AM EDT Office Visit [facility] [address] [place], [place] [phone] Constantino Weber DO [address] [place], [place] [phone] Health Maintenance Due Date Last Done Comments [...] the patient have Health Care Power of Glove Operator? Yes, not currently available Care Teams Front End Alignment Specialist Relationship Specialty Start Date End Date Yury Cash MD [address] [place] [phone] PCP - General Family Medicine 07/19/24 documented as of this encounter
--- OUTSIDE RECORDS SUMMARY | 2024-11-07 07:58 | External Medical Summary | Summary of Care ---
Author Name Unknown Organization [facility] Address [address] [place] [address] Phone [phone] Care Team Providers Care Offset Machine Operator Name Role Phone Yury Cash MD Primary Care [facility] Reason for Visit * Reason Onset Date Comments Home Health 10/23/2024 Encounter Details Date Type Department Care Team ([facility] Contact Info) Description 10/23/2024 Telephone Family [facility] [address] [place] [phone] Yury Cash MD [address] [place] [phone] Home Health Allergies No known active allergiesdocumented as of [...] 90 Tablet 3 08/09/2024 9:50 AM EDT 01/18/11/16/19 Active Omeprazole 20 MG Oral Capsule Delayed [...] to breakdown of skin 09/27/2023 Atherosclerosis of [place] co ronary artery without angina pectoris 02/09/2023 [...] EDT): Followed by vascular Unspecified atherosclerosis of [place] arteries of extremities, bilateral legs 02/15/2019 Assessment [...] (09/20/2024): duplicate Coronary artery disease invo lving [place] coronary artery of [place] heart without angina pectoris 08/29/2024 09/20/2024 Overview [...] 10/13/2018 02/15/2019 Coronary artery disease invo lving [place] heart without angina pectoris 06/01/2018 11/10/2021 DM type 2 causing neurological disease 01/24/2018 01/14/2021 Type 2 diabetes mellitus wit h diabetic nephropathy, without long-term current use of insulin 09/08/2017 09/08/2017 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 (5 years old or older) Answer Entry Date Author No 07/30/2024 9:07 AM EDT Moses Villafana RN documented in this encounter Miscellaneous Notes * Telephone Encounter - Maru Thomas LPN - 10/23/2024 8:44 AM EST HH Concerns TR Clinical Munitions Handler, Calling from: [facility] Report/Concerns of: UTI Symptoms Narrative: TR received a call this morning from patients regarding issue with catheter. She stated that patient has been crying in pain, the area is burning and he has a fever. The catheter is draining appropriately. TR advised that he needs to go to the ER as he think patient has a UTI. FYI to PCP [facility] HH documented in this encounter Plan of Treatment Upcoming Encounters Date Type Department Care Team ([facility] st Contact Info) Description 10/25/2024 7:00 AM EST Laboratory Laboratory Patient Service [address] [phone] [address] 10/25/2024 11:00 AM EST Scheduled Telephone [facility], [facility] [address] [place] [address] [facility], Nurse [facility] [address] [place] [address] 11/01/2024 11:40 AM EST Office Visit [address] [phone] Yury Cash MD [address] [place] [phone] 11/05/2024 8:30 AM EST Office Visit Urology, [place] [address] [place] [address] Dariel Smith PA-C [address] [place] [address] 11/20/2024 8:30 AM EST Home Visit [facility] [address] [facility] [place] [address] Dhara Sky, RN [address] [place] [address] 11/21/2024 8:30 AM EST Office Visit Cardiology, [facility] [address] [facility] [place] [address] Sajan Griffith PA-C 132 [facility] [place] [address] 05/29/2025 9:45 AM EDT Office Visit [facility] [address] [place] [address] Constantino Weber DO [address] [place] [address] Health Maintenance Due Date Last Done Comments Colonoscopy 01/20/2016 01/19/2011, 12/29, 01/07/2011, Additional history exists Albumin/Creatinine Ratio 05/07/2023 022, 04/11/2021, 05/28/2020, Additional history exists COVID-19 Vaccine ( season) 2024 11/09/2022, 08/13/2021, 01/22/2021, Additional history exists HbA1c 04/08/2025 10/08/2024, 1212/2023, 08/14/2024, Additional history exists B-12 05/17/2025 05/17/2024, 0505/2024, 07/07/2023, Additional history exists Diabetic Eye Exam [...] the patient have Health Care Power of Grounding Engineer? Yes, not currently available Care Teams Offset Machine Operator Relationship Specialty Start Date End Date Yury Cash MD [address] [place] [phone] PCP - General Family Medicine 07/19/24 documented as of this encounter
--- OUTSIDE RECORDS SUMMARY | 2024-11-07 07:58 | External Medical Summary | Summary of Care ---
Author Name Unknown Organization [facility] Address [address] [place] [address] Phone [phone] Care Team Providers Care Drilling Fluids Specialist Name Role Phone Yury Cash MD Primary Care [facility] Reason for Visit * Reason Onset Date Comments [facility]: Engagement 10/19/2024 Encounter Details Date Type Department Care Team (Late st Contact Info) Description 10/19/2024 Telephone [facility], [place] [address] [facility] [place], [place] [phone] Selam Yi, YEISON [address] [place] [address] [facility]: Engagement Allergies No known active allergiesdocumented as of this encounter (statuses as of 10/19/2024) Medications aspirin enteric coated 81 MG TBEC [...] THE DAY. 90 Capsule 2 4 Active Finicity Ultra 2 w/Device Kit Check blood sugars [...] before bedtime. 60 Tablet 3 4 Active Furosemide 40 MG Oral Tablet (Lasix) Take 1 Tablet by mouth in the morning. 30 Tablet 3 4 Active Acetaminophen 500 MG Oral Tablet (Tylenol) Take 1 Tablet by mouth every 6 hours as needed. Active Bisacodyl 10 MG Rectal Suppository (Dulcolax) Administer 1 Suppository into the rectum daily as needed for Constipation. Active Gabapentin 600 MG Oral Tablet (Neurontin)Indic [...] IN THE MORNING 90 Tablet 4 Active HYDROcodone-Acet aminophen 10-325 MG Oral Tablet Take 1 Tablet by mouth 2 times a day as needed for Pain, Severe. 20 Tablet 4 Active Additional Information Patient not taking.Reported on 10/09/2024 Docusate Sodium 100 MG Oral Tablet Take 1 Tablet by mouth as needed for Constipation. Active documented as of this encounter (statuses as of 10/19/2024) Active Problems Problem Noted Date Diagnosed Date [...] to breakdown of skin 09/27/2023 Atherosclerosis of [place] co ronary artery without angina pectoris 02/09/2023 [...] EDT): Followed by vascular Unspecified atherosclerosis of [place] arteries of extremities, bilateral legs 02/15/2019 Assessment & Plan (09/23/2024 11:41 PM EST): Follows with Dr Pfeiffer vascular surgery [facility] Surgery 10/08 Plan a left [...] as of this encounter (statuses as of 10/19/2024) Resolved Problems Problem Noted Date Diagnosed Date Resolved Date Paroxysmal A-fib 08/29/2024 09/20/2024 Overview (09/20/2024): duplicate Coronary artery disease invo lving [place] coronary artery of [place] heart without angina pectoris 08/29/2024 09/20/2024 Overview (09/20/2024): duplicate Atrial fibrillation with RVR 07/30/2024 08/08/2024 Cellulitis of left lower extremity 07/30/2024 08/08/2024 Physical deconditioning 12/27/2023 100 07/2024 Ambulatory dysfunction 12/27/202308/08 Elevated troponin 12/23/2023 [...] 10/13/2018 02/15/2019 Coronary artery disease invo lving [place] heart without angina pectoris 06/01/2018 11/10/2021 DM type 2 causing neurological disease 01/24/2018 01/14/2021 Type 2 diabetes mellitus wit h diabetic nephropathy, without long-term current use of insulin 09/08/2017 09/08/2017 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 Appt set documented in this encounter Plan of Treatment Upcoming Encounters Date Type Department Care Team ([facility] st Contact Info) Description 10/22/2024 3:20 PM EST Office Visit [address] [phone] Cristina Ayala PA-C [address] [place] [address] 10/25/2024 7:00 AM EST Laboratory Laboratory Patient Service Center[address] [phone] [address] 10/28/2024 9:30 AM EST [facility] Visit [facility] [place], [address] [place] [address] [facility], Nurse [facility] [address] [facility] [place] [address] 11/01/2024 11:40 AM EST Office Visit [address] [phone] Yury Cash MD [address] [place] [phone] 11/05/2024 8:30 AM EST Office Visit Urology, [place] [address] [place] [address] Dariel Smith PA-C [address] [place] [address] 11/21/2024 8:30 AM EST Office Visit Cardiology, [facility] [address] [place] [address] Sajan Griffith PA-C [address] [place] [address] 05/29/2025 9:45 AM EDT [facility] [place], [place] [address] [place], [place] [phone] Constantino Weber DO [address] [place], [place] [phone] Health Maintenance Due Date Last Done Comments Colonoscopy 01/20/2016 01/19/2011, 12/29, 01/07/2011, Additional history exists Albumin/Creatinine Ratio 05/07/[address] 022, 04/11/2021, 05/28/2020, Additional history exists COVID-19 Vaccine ( season) 2024 11/09/2022, 08/13/2021, 01/22/2021, Additional history exists HbA1c 04/01/2025 10/01/2024, 07/31, 07/19/2024, Additional history exists B-12 05/17/2025 05/17/2024, 05/0 [...] the patient have Health Care Power of Rubber And Plastics Worker? Yes, not currently available Care Teams Drilling Fluids Specialist Relationship Specialty Start Date End Date Yury Cash MD [address] [place] [phone] PCP - General Family Medicine 07/19/24 documented as of this encounter
--- OUTSIDE RECORDS SUMMARY | 2024-11-07 07:58 | External Medical Summary | Summary of Care ---
Author Name Unknown Organization [facility] Address [address] [place] [place] [address] Phone [phone] Care Team Providers Care Tube Skiver Name Role Phone Yury Cash MD Primary Care [facility] Reason for Visit * Reason Onset Date Comments [facility]: Acute 10/23/2024 Encounter Details Date Type Department Care Team (Late st Contact Info) Description 10/23/2024 Telephone [facility], [facility] [address] [facility] [place] [address] Shae Wright, CHRIS [address] [facility] [place] [address] [facility]: Acute Allergies No known active allergiesdocumented as of [...] THE DAY. 90 Capsule 2 4 Active Flint Ultra 2 w/Device Kit Check blood sugars [...] BY MOUTH IN THE MORNING 90 Tablet Active Docusate Sodium 100 MG Oral Tablet [...] to breakdown of skin 09/27/2023 Atherosclerosis of menominee co ronary artery without angina pectoris 02/09/2023 [...] EDT): Followed by vascular Unspecified atherosclerosis of menominee arteries of extremities, bilateral legs 02/15/2019 Assessment [...] (09/20/2024): duplicate Coronary artery disease invo lving menominee coronary artery of menominee heart without angina pectoris 08/29/2024 09/20/2024 Overview (09/20/2024): duplicate Atrial fibrillation with RVR 07/30/2024 08/08/2024 Cellulitis of left lower extremity 07/30/2024 08/08/2024 Physical deconditioning 12/27/2023 1007/2024 Ambulatory dysfunction 12/27/202308/08 Elevated troponin 12/23/2023 08/08/2024 [...] 10/13/2018 02/15/2019 Coronary artery disease invo lving menominee heart without angina pectoris 06/01/2018 11/10/2021 DM type 2 causing neurological disease 01/24/2018 01/14/2021 Type 2 diabetes mellitus wit h diabetic nephropathy, without long-term current use of insulin 09/08/2017 09/08/2017 Atherosclerotic heart diseas e of menominee coronary artery with unspecified angina pectoris 09/08/2017 [...] mRNA, LNP-s, No Pre serve, 2-Dose Series (Ansible) 08/13/2021,01/22/2021,12/27/2020 Covid-19, Mrna, Lnp-s, Pf, B ivalent, 30 Mcg, IM, 12 yrs and above (Ansible) 11/09/2022 Pneumococcal Conjugate Vacc, 13 Valent (Prevnar) [...] 08/07/2024 Does the household have a re lar source of income? 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 It is unclear without an evaluation what would be causing his pain therefore prescribing something for the pain is inappropriate. Orders: No orders of the defined types were placed in this encounter. To Do: Please see below for follow up items to be completed and correspondence: Agree with visit - if available Hunter Perez DO Remote Medical Command - [facility] 10/23/2024 Scheduled appointments in the next 60 days: Future Appointments-next 60 days Date/Time Provider Specialty Dept Phone 10/25/2024 7:00 AM Fernanda [facility] [phone] 11/01/2024 11:40 AM (Arrive by 11:25 AM) Yury Cash MD Family Medicine [phone] 11/05/2024 8:30 AM Dariel Smith PA-C Urology [phone] 11/20/2024 8:30 AM Dhara Sky RN [facility] [phone] 11/21/2024 8:30 AM (Arrive by 8:15 AM) Sajan Griffith PA-C Cardiology [phone] 05/29/2025 9:45 AM Constantino Weber DO Ophthalmology [phone] The above documentation was completed using the voice recognition dictation program Fluency Direct.As such, there may be misspellings, word substitutions, or other variations that should not change the essence of the clinical content of this encounter note. If there are questions, concerns or needfor further clarification, please contact me. Thank you. * Telephone Encounter - Shae Wright RN - 10/23/2024 8:36 AM EST [facility] networking administrator Acute Call Date: 10/23/2024 Time: 8:36 AM Name: Gomez Suarez : 1935 Caller: Spouse Pretty Relationship to Chief Complaint Patient presents with [facility]: Acute HPI: Gomez Suarez is a 88 year old male whose spouse is calling [facility] to report [facility] RNCM was at the house yesterday, saw that patient was having a lot of pain, burning with the ge catheter in . She deflated balloon, advanced cath and reinflated. Symptoms subsided Today, he is screaming in pain again They have no car, no way to get to ED or urgent care Not sure if they have Home Health, " I think we do with [facility]". Spouse will call. Advised I will notify care team and obtain orders/recommendation. Spouse is reaching out to see if they have 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, bilateral legs (HCC) Abdominal aortic aneurysm (AAA) without rupture (HCC) CKD (chronic kidney disease) stage 2, GFR 60-89 ml/min 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 (HCC) 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 Skin ulcer of right ankle, limited to breakdown of skin (HCC) History of tonsillectomy Hypomagnesemia PVD (peripheral vascular disease) (HCC) Old myocardial infarct Aneurysm of ascending aorta without rupture (HCC) Nonrheumatic aortic valve stenosis Ascending aorta enlargement (HCC) Nursing Assessment: Patient's chief complaint for this call: Urinary symptoms Pain Has pain Pain level: 8 Location: from ge catheter Quality of Pain: sharp, burning Does the pain radiate: Unknown Baseline Assessment Able to performing ADLs at baseline (walking, daily tasks, etc.): Unknown Chief Complaint is related to a chronic condition: No Patient prescribed oxygen? No Patient has been ordered DME equipment (assistive devices, respiratory equipment, etc.): Unknown Medication Reconciliation: Received flu shot this season: No Taking medication as ordered: Yes Medications ordered/taking to treat reason for call: No Heart failure symptoms: No COPD exacerbation symptoms: No Reinforcement Education: Make sure catheter secured to leg and not being pulled or tugged Push fluids for hydration and to avoid concentrated urine Keep catheter bag below hip level at all times and off the floor Treatment/Plan: Level of call: Acute Appointment scheduled for same day: TBD Provider Name: TBD Care team RNCM PTO Other pod RNCM approx 1 hr away No MIH No Acute nurse Routed to ED and [facility], Possible medication for pain/burning ? Shae Wright, RN, BSN reimbursement representativeUtility Systems Repairer Operator [phone] option #1 Call back instructions provided to patient. documented in this encounter Plan of Treatment Upcoming Encounters Date Type Department Care Team ([facility] Contact Info) Description 10/25/2024 7:00 AM EST Laboratory Laboratory Patient Service [address] [phone] [address] [address] 11/01/2024 11:40 AM EST Office Visit [address] [phone] Yury Cash MD [address] [place] [phone] 11/05/2024 8:30 AM EST Office Visit Urology, [place] [address] [place] [address] Dariel Smith PA-C [address] [place] [address] 11/20/2024 8:30 AM EST [facility] [address] [facility] [place] [address] Dhara Sky, RN [address] [place] [address] 11/21/2024 8:30 AM EST Office Visit Cardiology, [facility] [address] [place] [address] Sajan Griffith PA-C [address] [place] [address] 05/29/2025 9:45 AM EDT Office Visit [facility] [address] [place] [address] Constantino Weber DO [address] [place] [address] Health Maintenance Due Date Last Done Comments [...] the patient have Health Care Power of Consulting It Architect? Yes, not currently available Care Teams Tube Skiver Relationship Specialty Start Date End Date Yury Cash MD [address] [place] [phone] PCP - General Family Medicine 07/19/24 documented as of this encounter
--- OUTSIDE RECORDS SUMMARY | 2024-11-07 07:58 | External Medical Summary | Summary of Care ---
Author Name Unknown Organization [facility] Address [address] [facility] [place] [address] Phone [phone] Care Team Providers Care Purification Director Name Role Phone Yury Cash MD Primary Care [facility] Reason for Visit * Reason Onset Date Comments [facility]: Acute 10/23/2024 Encounter Details Date Type Department Care Team (Late st Contact Info) Description 10/23/2024 Telephone [facility], [facility] [address] [facility] [place] [address] Shae Wright, CHRIS [address] [facility] [place] [address] [facility]: Acute Allergies No known [...] THE DAY. 90 Capsule 2 4 Active ShopAdvisor Ultra 2 w/Device Kit Check blood sugars [...] to breakdown of skin 09/27/2023 Atherosclerosis of kasaan co ronary artery without angina pectoris 02/09/2023 [...] EDT): Followed by vascular Unspecified atherosclerosis of kasaan arteries of extremities, bilateral legs 02/15/2019 Assessment & Plan (09/23/2024 11:41 PM EST): Follows with Dr Pfeiffer vascular surgery [facility] Surgery 10/08 Plan a left popliteal to [...] (09/20/2024): duplicate Coronary artery disease invo lving kasaan coronary artery of kasaan heart without angina pectoris 08/29/2024 09/20/2024 Overview [...] 10/13/2018 02/15/2019 Coronary artery disease invo lving kasaan heart without angina pectoris 06/01/2018 11/10/2021 DM type 2 causing neurological disease 01/24/2018 01/14/2021 Type 2 diabetes mellitus wit h diabetic nephropathy, without long-term current use of insulin 09/08/2017 09/08/2017 Atherosclerotic heart diseas e of kasaan coronary artery with unspecified angina pectoris 09/08/2017 [...] mRNA, LNP-s, No Pre serve, 2-Dose Series (Mobile [employer]ie) 08/13/2021,01/22/2021,12/27/2020 Covid-19, Mrna, Lnp-s, Pf, B ivalent, 30 Mcg, IM, 12 yrs and above ([employer]ie) 11/09/2022 Pneumococcal Conjugate Vacc, 13 Valent (Prevnar) [...] 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 Not [...] 10/25/2024 7:00 AM Fernanda [facility] [phone] 11/01/2024 11:40 AM (Arrive by 11:25 AM) Yury Cash MD Family Medicine [phone] 11/05/2024 8:30 AM Dariel Smith PA-C Urology [phone] 11/20/2024 8:30 AM Dhara Sky RN [facility] [phone] 11/21/2024 8:30 AM (Arrive by 8:15 AM) Sajan Griffith PA-C Cardiology [phone] 05/29/2025 9:45 AM Constantino Weber DO Ophthalmology [phone] The above documentation was completed using the [...] 10/23/2024 8:36 AM EST [facility] accounting file clerk Acute Call Date: 10/23/2024 Time: 8:36 AM Name: Gomez Suarez : 1935 Caller: Spouse Pretty Relationship to Chief Complaint Patient presents with [facility]: Acute HPI: Gomez Suarez is a 88 year old male whose spouse is calling [facility] to report [facility] RNCM was at the house yesterday, [...] Health, " I think we do with [facility]". Spouse will call. Advised I will notify care team and obtain orders/recommendation. Spouse is reaching out to see if they have [facility] ROS: Patient Active Problem List Diagnosis After cataract not obscuring vision Dyslipidemia, goal LDL below 70 History of malignant melanoma of skin Hx of nonmelanoma skin cancer Idiopathic chronic gout of multiple sites without tophus Paroxysmal atrial fibrillation (HCC) S/P right coronary artery (RCA) stent placement Type 2 diabetes mellitus with diabetic neuropathy, without long-term current use of insulin (HCC) Unspecified atherosclerosis of kasaan arteries of extremities, bilateral legs (HCC) Abdominal aortic aneurysm (AAA) without rupture (HCC) CKD (chronic kidney disease) stage 2, GFR 60-89 ml/min 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 (HCC) Atherosclerosis of kasaan coronary artery without angina pectoris Skin ulcer [...] No Acute nurse Routed to ED and [facility], Possible medication for pain/burning ? Shae Wright, RN, BSN staff therapistTv News Director [phone] option #1 Call back instructions provided to patient. documented in this encounter Plan of Treatment Upcoming Encounters Date Type Department Care Team ([facility] Contact Info) Description 10/25/2024 7:00 AM EST Laboratory Laboratory Patient Service [address] [phone] [address] [address] 11/01/2024 11:40 AM EST Office Visit [address] [phone] Yury Cash MD [address] [place] [phone] 11/05/2024 8:30 AM EST Office Visit Urology, [place] [address] [place] [address] Dariel Smith PA-C [address] [place] [address] 11/20/2024 8:30 AM EST [facility] [address] [facility] [place] [address] Dhara Sky, RN [address] [place] [address] 11/21/2024 8:30 AM EST Office Visit Cardiology, [facility] [address] [place] [address] Sajan Griffith PA-C [address] [place] [address] 05/29/2025 9:45 AM EDT Office Visit [facility] [address] [place] [address] Constantino Weber DO [address] [place] [address] Health Maintenance Due Date Last Done Comments [...] the patient have Health Care Power of Engraver Automatic? Yes, not currently available Care Teams Purification Director Relationship Specialty Start Date End Date Yury Cash MD [address] [place] [phone] PCP - General Family Medicine 07/19/24 documented as of this encounter
--- OUTSIDE RECORDS SUMMARY | 2024-11-07 07:58 | External Medical Summary | Summary of Care ---
Author Name Unknown Organization [facility] Address [address] [facility] [address] Phone [phone] Care Team Providers Care Gas Appliance Mechanic Name Role Phone Yury Cash MD [facility] Reason for Visit * Reason Onset Date Comments [facility]: Maintenance 10/21/2024 Encounter Details Date Type Department Care Team (Late st Contact Info) Description 10/21/2024 11:45 AM EST Scheduled Telephone [facility], [facility] [address] [facility] [place] [address] [facility], Nurse [facility] [address] [facility] [place] [address] Allergies No known active allergiesdocumented as of this encounter (statuses as of 10/21/2024) Medications aspirin enteric coated 81 MG TBEC [...] THE DAY. 90 Capsule 2 4 Active Foap AB Ultra 2 w/Device Kit Check blood sugars [...] as of this encounter (statuses as of 10/21/2024) Active Problems Problem Noted Date Diagnosed Date [...] to breakdown of skin 09/27/2023 Atherosclerosis of solomon co ronary artery without angina pectoris 02/09/2023 [...] EDT): Followed by vascular Unspecified atherosclerosis of solomon arteries of extremities, bilateral legs 02/15/2019 Assessment & Plan (09/23/2024 11:41 PM EST): Follows with Dr Pfeiffer vascular surgery [facility] Surgery 10/08 Plan a left popliteal to [...] as of this encounter (statuses as of 10/21/2024) Resolved Problems Problem Noted Date Diagnosed Date Resolved Date Paroxysmal A-fib 08/29/2024 09/20/2024 Overview (09/20/2024): duplicate Coronary artery disease invo lving solomon coronary artery of solomon heart without angina pectoris 08/29/2024 09/20/2024 Overview [...] 10/13/2018 02/15/2019 Coronary artery disease invo lving solomon heart without angina pectoris 06/01/2018 11/10/2021 DM type 2 causing neurological disease 01/24/2018 01/14/2021 Type 2 diabetes mellitus wit h diabetic nephropathy, without long-term current use of insulin 09/08/2017 09/08/2017 Atherosclerotic heart diseas e of solomon coronary artery with unspecified angina pectoris 09/08/2017 [...] as of this encounter (statuses as of 10/21/2024) Immunizations Name Administration Dates Next Due COVID-19 mRNA, LNP-s, No Pre serve, 2-Dose Series ([employer]) 08/13/2021,01/22/2021,12/27/2020 Covid-19, Mrna, Lnp-s, Pf, B ivalent, [...] 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 She reports today is not a good day for visit. Their driveway is icy and their vehicle is stuck in the middle of it, it would be impassable. She reports he is doing well besides having burning from ge catheter. Reports it is draining well an orange/yellow color and there is no fever/chills. Reports no issues at insertion site with redness or drainage. She reports it has been burning since it was inserted in hospital and staff at hospital were notified. is going to call urology tomorrow to see about getting pt seen sooner. Pt does have an appt tomorrow afternoon at PCP office. reports she is going to get her stepson to come to try to get the vehicle from being stuck on the driveway. Placed on schedule tomorrow morning for visit if possible. aware. documented in this encounter Plan of Treatment Upcoming Encounters Date Type Department Care Team (Late st Contact Info) Description 10/22/2024 10:00 AM EST [facility] [place] [address] Dhara Sky RN [address] [place] [address] 10/22/2024 3:20 PM EST Office Visit [facility] [address] [place] [phone] Cristina Ayala PA-C [address] [place] [address] 10/25/2024 7:00 AM EST Laboratory Laboratory [facility] [phone] [address] 11/01/2024 11:40 AM EST Office Visit [facility] [address] [place] [phone] Yury Cash MD [address] [place] [phone] 11/05/2024 8:30 AM EST Office Visit Urology, [place] [address] [place], [place] [phone] Dariel Smith PA-C [address] [place], [place] [phone] 11/21/2024 8:30 AM EST Office Visit Cardiology, [facility] [address] [place] [address] Sajan Griffith PA-C [address] [place] [address] 05/29/2025 9:45 AM EDT [facility] [address] [place], [place] [phone] Constantino Weber DO [address] [place] [address] Health Maintenance Due Date Last Done Comments [...] the patient have Health Care Power of Auditor In Charge? Yes, not currently available Care Teams Gas Appliance Mechanic Relationship Specialty Start Date End Date Yury Cash MD [address] [place] [phone] PCP - General Family Medicine 07/19/24 documented as of this encounter
--- OUTSIDE RECORDS SUMMARY | 2024-11-07 07:58 | External Medical Summary ---
Author Name Unknown Address Unknown Organization [id number]:LABORATORY [facility] - [facility] [address] Laboratory Report Ordering Provider Test Date Status DIEGO BARBOSA 10/23/2024 11:29:34 Correction Observation Date Value Abnormality Reference (Units) Status Color of Urine by Auto 10/23/2024 11:29:34 Yellow Light Yellow, Yellow, Dark Yellow Final Clarity, Urine 10/23/2024 11:29:34 Clear Clear Final Glucose [Mass/volume] in Urine by Automated test strip 10/23/2024 11:29:34 Negative Negative (mg/dL) Final Bilirubin.total [Presence] in Urine by Automated test strip 10/23/2024 11:29:34 Negative Negative Final Ketones [Mass/volume] in Urine by Automated test strip 10/23/2024 11:29:34 Negative Negative (mg/dL) Final Specific gravity, Urine 10/23/2024 11:29:34 1.012 1.003-1.030 Final Hemoglobin [Presence] in Urine by Automated test strip 10/23/2024 11:29:34 Large Abnormal Negative Final pH, Urine 10/23/2024 11:29:34 8.5 Above high normal 5.0-7.5 (Units) Final Protein [Mass/volume] in Urine by Automated test strip 10/23/2024 11:29:34 100 Abnormal Negative (mg/dL) Final Urobilinogen [Mass/volume] in Urine by Automated test strip 10/23/2024 11:29:34 0.2 0.2, 1.0 (mg/dL) Final Nitrite [Presence] in Urine by Automated test strip 10/23/2024 11:29:34 Negative Negative Final Leukocyte esterase [Presence] in Urine by Automated test strip 10/23/2024 11:29:34 Moderate Abnormal Negative Final RBC, Urine 10/23/2024 11:29:34 50+ Abnormal 0-2 (/HPF) Correction Changed result: Previously r eported as 0-2 /HPF on 10/23/2024 at 1147 EST. WBC, Urine 10/23/2024 11:29:34 6-9 Abnormal 0-2 (/HPF ) Correction Changed result: Previously r eported as 0-2 /HPF on 10/23/2024 at 1147 EST. Bacteria [#/area] in Urine s ediment by Microscopy high power field 10/23/2024 11:29:34 0-25 0-25 ( /HPF) Final CULTURE, [facility] 10/23/2024 11:29:34 Final Culture not indicated by uri nalysis results\[id number]\ Performing Location LABORATORY [address] [phone]
--- OUTSIDE RECORDS SUMMARY | 2024-11-07 07:58 | External Medical Summary | Summary of Care ---
Author Name Unknown Organization [facility] Address [address] [place] [facility] [place] [address] Phone [phone] Care Team Providers Care Associate Professor Of Communication Name Role Phone Yury Cash MD [facility] Reason for Visit * Reason Onset Date Comments [facility]: Acute 10/23/2024 Encounter Details Date Type Department Care Team (Late st Contact Info) Description 10/23/2024 Telephone [facility], [facility] [address] [facility] [place] [address] Shae Wright, CHRIS [address] [facility] [place] [address] [facility]: Acute Allergies No known [...] THE DAY. 90 Capsule 2 4 Active Acucar Guarani Ultra 2 w/Device Kit Check blood sugars [...] to breakdown of skin 09/27/2023 Atherosclerosis of [place] co ronary artery without angina pectoris 02/09/2023 [...] EDT): Followed by vascular Unspecified atherosclerosis of [place] arteries of extremities, bilateral legs 02/15/2019 Assessment [...] (09/20/2024): duplicate Coronary artery disease invo lving [place] coronary artery of [place] heart without angina pectoris 08/29/2024 09/20/2024 Overview [...] 10/13/2018 02/15/2019 Coronary artery disease invo lving [place] heart without angina pectoris 06/01/2018 11/10/2021 DM type 2 causing neurological disease 01/24/2018 01/14/2021 Type 2 diabetes mellitus wit h diabetic nephropathy, without long-term current use of insulin 09/08/2017 09/08/2017 Atherosclerotic heart diseas e of [place] coronary artery with unspecified angina pectoris 09/08/2017 [...] mRNA, LNP-s, No Pre serve, 2-Dose Series (RedShelf) 08/13/2021,01/22/2021,12/27/2020 Covid-19, Mrna, Lnp-s, Pf, B ivalent, 30 Mcg, IM, 12 yrs and above ([employer]Shelf) 11/09/2022 Pneumococcal Conjugate Vacc, 13 Valent (Prevnar) [...] 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 She reports she did reach them, and they recommend she call an ambulance and go to ED, may be infected ??. They called for ambulance and it is on the way Shae Wright RN, BSN core machine operatorShiatsu Therapist [phone] option #1 * Telephone Encounter - Hunter Perez DO [...] completed and correspondence: Agree with visit - HH if available Hunter Perez DO [facility] - [facility] 10/23/2024 Scheduled appointments in the next 60 days: Future Appointments-next 60 days Date/Time Provider Specialty Dept Phone 10/25/2024 7:00 AM Radha, [facility] [phone] 11/01/2024 11:40 AM (Arrive by 11:25 AM) Yury Cash MD Family Medicine [phone] 11/05/2024 8:30 AM Dariel Smith PA-C Urology [phone] 11/20/2024 8:30 AM Dhara Sky RN [facility] [phone] 11/21/2024 8:30 AM (Arrive by 8:15 AM) Sajan Griffith PA-C Cardiology [phone] 05/29/2025 9:45 AM Constantino Weber DO Ophthalmology [phone] The above documentation was completed using the voice recognition dictation program Fluency Direct.As such, there may be misspellings, word substitutions, or other variations that should not change the essence of the clinical content of this encounter note. If there are questions, concerns or needfor further clarification, please contact me. Thank you. * Telephone Encounter - Shae Wright RN - 10/23/2024 8:36 AM EST [email or web address] Acute Call Date: 10/23/2024 Time: 8:36 AM Name: Gomez Suarez : 1935 Caller: Spouse Pretty Relationship to Chief Complaint Patient presents with [facility]: Acute HPI: Gomez Suarez is a 88 year old male whose spouse is calling [facility] to report [facility] RNCM was at the house yesterday, saw [...] Health, " I think we do with [facility]". Spouse will call. Advised I will notify care team and obtain orders/recommendation. 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 Shae Wright, RN, BSN core machine operatorShiatsu Therapist [phone] option #1 Call back instructions provided to patient. documented in this encounter Plan of Treatment Upcoming Encounters Date Type Department Care Team (Late st Contact Info) Description 10/25/2024 7:00 AM EST Laboratory Laboratory Patient Service [place], [address] [phone] [place], Lab [address] [place] [address] 10/25/2024 11:00 AM EST Scheduled Telephone [facility], [address] [place] [address] [facility], Nurse [address] [place] [address] 11/01/2024 11:40 AM EST Office Visit [facility] [address] [place] [phone] Yury Cash MD [address] [place] [phone] 11/05/2024 8:30 AM EST Office Visit Urology, [place] [address] [place], [place] [phone] Dariel Smith PA-C [address] [place], [place] [phone] 11/20/2024 8:30 AM EST Home Visit [facility] at [facility] [address] [facility] [place] [address] Dhara Sky RN [address] [facility] [place] [address] 11/21/2024 8:30 AM EST Office Visit Cardiology, [facility] [address] [facility] [place] [address] Sajan Griffith PA-C [address] [facility] [place] [address] 05/29/2025 9:45 AM EDT Office Visit [facility] Eye [facility] [address] [place], [place] [phone] Constantino Weber DO [address] [place], [place] [phone] Health Maintenance Due Date Last Done Comments [...] the patient have Health Care Power of Religious Education Director? Yes, not currently available Care Teams Associate Professor Of Communication Relationship Specialty Start Date End Date Yury Cash MD [address] [place] [phone] PCP - General Family Medicine 07/19/24 documented as of this encounter
--- OUTSIDE RECORDS SUMMARY | 2024-11-07 07:58 | External Medical Summary | Summary of Care ---
Author Name Unknown Organization [facility] Address [address] [place] [address] Phone [phone] Care Team Providers Care Network Relations Consultant Name Role Phone Yury Cash MD Primary Care Provi [facility] Reason for Visit * Reason Onset Date Comments [facility]: Maintenance 10/23/2024 Encounter Details Date Type Department Care Team (Late st Contact Info) Description 10/23/2024 Telephone [facility], [facility] [address] [facility] [place] [address] Sonja Mckeon, RN [address] [place], [place] [phone] [facility]: Maintenance Allergies No known [...] THE DAY. 90 Capsule 2 4 Active SynapseTouch Ultra 2 w/Device Kit Check blood sugars [...] to breakdown of skin 09/27/2023 Atherosclerosis of [place] co ronary artery without angina pectoris 02/09/2023 [...] EDT): Followed by vascular Unspecified atherosclerosis of [place] arteries of extremities, bilateral legs 02/15/2019 Assessment & Plan (09/23/2024 11:41 PM EST): Follows with Dr Pfeiffer vascular surgery [facility] Surgery 10/08 Plan a left [...] (09/20/2024): duplicate Coronary artery disease invo lving [place] coronary artery of [place] heart without angina pectoris 08/29/2024 09/20/2024 Overview [...] 10/13/2018 02/15/2019 Coronary artery disease invo lving [place] heart without angina pectoris 06/01/2018 11/10/2021 DM type 2 causing neurological disease 01/24/2018 01/14/2021 Type 2 diabetes mellitus wit h diabetic nephropathy, without long-term current use of insulin 09/08/2017 09/08/2017 Atherosclerotic heart diseas e of [place] coronary artery with unspecified angina pectoris 09/08/2017 [...] mRNA, LNP-s, No Pre serve, 2-Dose Series ([email or web address]) 08/13/2021,01/22/2021,12/27/2020 Covid-19, Mrna, Lnp-s, Pf, B ivalent, 30 Mcg, IM, 12 yrs and above ([email or web address]) 11/09/2022 Pneumococcal Conjugate Vacc, 13 Valent (Prevnar) [...] 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 Patient in ED for FC issues Dispo pending PC placed documented in this encounter Plan of Treatment Upcoming Encounters Date Type Department Care Team (Late st Contact Info) Description 10/25/2024 7:00 AM EST Laboratory Laboratory Patient Service [address] [phone] [address] 10/25/2024 11:00 AM EST Scheduled Telephone [facility] [place], [address] [place] [address] [facility], Nurse [facility] [address] [place] [address] 11/01/2024 11:40 AM EST Office Visit [address] [phone] Yury Cash MD [address] [place] [phone] 11/05/2024 8:30 AM EST Office Visit Urology, [place] [address] [place] [address] Dariel Smith PA-C [address] [place] [address] 11/20/2024 8:30 AM EST Home Visit [facility], [facility] [address] [facility] [place] [address] Dhara Sky RN [address] [place] [address] 11/21/2024 8:30 AM EST Office Visit Cardiology, [facility] [address] [place] [address] Sajan Griffith PA-C [address] [place] [address] 05/29/2025 9:45 AM EDT Office Visit [facility] Eye [facility] [address] [place] [address] Constantino Weber DO [address] [place] [address] Health Maintenance Due Date Last Done Comments [...] the patient have Health Care Power of Manager Implementation? Yes, not currently available Care Teams Network Relations Consultant Relationship Specialty Start Date End Date Yury Cash MD [address] [place] [phone] PCP - General Family Medicine 07/19/24 documented as of this encounter
--- OUTSIDE RECORDS SUMMARY | 2024-11-07 07:59 | External Medical Summary ---
Author Name Unknown Address Unknown Organization R1WR:[facility] [address] [place] [address] Laboratory Report Ordering Provider Test Date Status LAYTONYelenaGEORGIANACARMEN 10/09/2024 20:56:00 Final Observation Date Value Abnormality Reference (Units ) Status Magnesium 10/09/2024 21:19 1.6 1.6-2.6 (mg/d L) Final Performing Location [facility] [address] [place] [address]
--- OUTSIDE RECORDS SUMMARY | 2024-11-07 07:59 | External Medical Summary ---
Author Name Unknown Address Unknown Organization R1WR:[facility] [address] [place] [address] Laboratory Report Ordering Provider Test Date Status ANN LEUNG 10/10/2024 09:20:00 Final Observation Date Value Abnormality Reference (Units ) Status High Sensitivity Troponin I 10/10/2024 09:52 3203 Above upper panic limits <45 (ng/L) Final ADAL CALLED CRITICAL RE SULTS AT [id number]. THE RESULTS WERE READ BACK AND VERIFIED BY: Arturo Vega [facility] hs-Troponin I assay measured using the Siemens immunoassay. (Atellica analyzer, Siemens, [facility]) Performing Location [facility] [address] [place] [address]
--- OUTSIDE RECORDS SUMMARY | 2024-11-07 07:59 | External Medical Summary ---
Author Name Unknown Address Unknown Organization R1WR:[facility] [address] [place] [address] Laboratory Report Ordering Provider Test Date Status SHAQ BECKER 10/08/2024 05:58:00 Final Observation Date Value Abnormality Reference (Units ) Status Creatinine 10/08/2024 06:21 1.01 0.70-1.30 (m g/dL) Final eGFR 10/08/2024 06:21 72 >59 (mL/min/1 .73m2) Final eGFR = 142 X [min(Scr/k,1)]* *a [max(Scr/k,1)-1.200x0.9938age X 1.012 [if female] Where Scr is serum creatinine; k is 0.7 for females and 0.9 males; a is -0.241 for females and -0.302 for males; min indicates the minimum of Scr/k or 1, max indicates the maximum of Scr/k or 1 Performing Location [facility] [address] [place] [address]
--- OUTSIDE RECORDS SUMMARY | 2024-11-07 07:59 | External Medical Summary ---
Author Name Unknown Address Unknown Organization R1WR:[facility] [address] [place] [facility] [place] [address] Laboratory Report Ordering Provider Test Date Status SHAQ BECKER 10/09/2024 22:40:00 Final Observation Date Value Abnormality Reference (Units ) Status UA Culture Screen 10/09/2024 23:14 Positive screen. Culture to be done. Final Urine Clarity 10/09/2024 23:14 Cloudy Abnormal CLER Final Urine Color 10/09/2024 23:14 Yellow Normal YELL Final Specific [place], Urine 10/09/2024 23:14 1.019 1.000-1.025 Final Urine pH 10/09/2024 23:14 5.5 5.0-8.0 Final Urine Leukocyte Esterase 10/09/2024 23:14 Small Abnormal NEGAT Final Urine Nitrites 10/09/2024 23:14 Negative Normal NEGAT Final Protein, Urine 10/09/2024 23:14 Small Abnormal NEGAT (mg/dL) Final Glucose, Urine 10/09/2024 23:14 Negative Normal NEGAT (mg/dL) Final Urine Ketones 10/09/2024 23:14 Negative Normal NEGAT Final Urine Urobilinogen 10/09/2024 23:14 0.2 0.0-1.0 (mg/dL) Final The total absence of urobili nogen cannot be detected. Values up to 1 mg/dL are usually considered normal. Urine Bilirubin 10/09/2024 23:14 Negative Normal NEGAT Final Blood, Urine 10/09/2024 23:14 Moderate Abnormal NEGAT Final Urine RBC 10/09/2024 23:14 22 Above high normal 0-4 (/hpf) Final Urine WBC 10/09/2024 23:14 16 Above high normal 0-5 (/hpf) Final Urine Bacteria 10/09/2024 23:14 None Normal NONE (/h pf) Final Epithelial Cells 10/09/2024 23:14 Greater than 36 0-5 (/lpf) Final Finely Granular Casts 10/09/2024 23:22 1 Above high normal 0 (/lpf) Final Urine Source 10/09/2024 22:40 Urine from ge Final Performing Location [facility] [address] [place] [address]
--- OUTSIDE RECORDS SUMMARY | 2024-11-07 07:59 | External Medical Summary ---
Author Name Unknown Address Unknown Organization R1WR:[facility] [address] [place] [address] Laboratory Report Ordering Provider Test Date Status SHAQ BECKER 10/08/2024 06:41:00 Final Observation Date Value Abnormality Reference (Units ) Status Glucose, POC 10/08/2024 06:48 164 Above high normal 70 -99 (mg/dL) Final Performing Location [facility] [address] [place] [address]
--- OUTSIDE RECORDS SUMMARY | 2024-11-07 07:59 | External Medical Summary ---
Author Name Unknown Address Unknown Organization R1WR:[facility] [address] [place] [address] Laboratory Report Ordering Provider Test Date Status ELLIOTT MENDOZA 10/10/2024 03:45:00 Final Observation Date Value Abnormality Reference (Units ) Status WBC 10/10/2024 04:12 9.8 Above high normal 4.0-9.1 (X10E+09/L) Final RBC 10/10/2024 04:12 3.51 Below low normal 4.6-6.1 (X10E+12/L) Final Hemoglobin 10/10/2024 04:12 9.1 Below low normal 13.4-17.5 (g/dL) Final Hematocrit 10/10/2024 04:12 30.0 Below low normal 40-51 (%) Final MCV 10/10/2024 04:12 85.5 79-92 (fL) Final MCH 10/10/2024 04:12 25.9 Below low normal 26.0-32.0 (pg) Final MCHC 10/10/2024 04:12 30.3 Below low normal 32-37 (g/dL) Final Platelets 10/10/2024 04:12 126 Below low normal 150-330 (X10E+09/L) Final RDW 10/10/2024 04:12 18.2 Above high normal 11.6-14.4 (%) Final Absolute NRBC 10/10/2024 04:12 0.00 0 (X10E+09/L) Final Absolute Neutrophils 10/10/2024 04:12 7.05 Above high normal 1.6-6.1 (X10E+09/L) Final Absolute Lymphocytes 10/10/2024 04:12 1.69 1.3-3.6 (X10E+09/L) Final Absolute Monocytes 10/10/2024 04:12 0.93 Above high normal 0.3-0.8 (X10E+09/L) Final Absolute Eosinophils 10/10/2024 04:12 0.10 0.0-0.5 (X10E+09/L) Final Absolute Basophils 10/10/2024 04:12 0.02 0.0-0.1 (X10E+09/L) Final Nucleated RBC 10/10/2024 04:12 0.0 0.0-0.2 (/100 WBC) Final Neutrophils 10/10/2024 04:12 71.6 Above high normal 34.0-67.9 (%) Final Lymphocytes 10/10/2024 04:12 17.3 Below low normal 21.8-53.1 (%) Final Monocytes 10/10/2024 04:12 9.5 5.3-12.2 (%) Final Eosinophils 10/10/2024 04:12 1.0 0.8-7.0 (%) Final Basophils 10/10/2024 04:12 0.2 0.1-1.2 (%) Final Performing Location [facility] [address] [place] [address]
--- OUTSIDE RECORDS SUMMARY | 2024-11-07 07:59 | External Medical Summary ---
Author Name Unknown Address Unknown Organization R1WR:[facility] [address] [place] [address] Laboratory Report Ordering Provider Test Date Status SHAQ BECKER 10/09/2024 20:50:00 Final Observation Date Value Abnormality Reference (Units) Status pH POC 10/09/2024 20:53 7.364 7.35-7.45 Final pCO2 POC 10/09/2024 20:53 45.3 Above high normal 35-45 (mm Hg) Final pO2 POC 10/09/2024 20:53 130.0 Above high normal 80-100 (mm Hg) Final HCO3 POC 10/09/2024 20:53 25.8 22-26 (mmol/L) Final Base Excess POC Arterial 10/09/2024 20:53 0.2 0.0-2.0 (mmol/L) Final Sodium POC 10/09/2024 20:53 136 136-145 (mmol/L) Final Potassium POC 10/09/2024 20:53 4.1 3.5-5.1 (mmol/L) Final Chloride POC 10/09/2024 20:53 99 98-107 (mmol/L) Final TCO2 POC 10/09/2024 20:53 27.2 20-31 (mmol/L) Final Glucose POC 10/09/2024 20:53 185 Above high normal 70-99 (mg/dL) Final Ionized Calcium POC 10/09/2024 20:53 1.13 Below low normal 1.15-1.30 (mmol/L) Final Lactate POC 10/09/2024 20:53 3.5 Above upper panic limits 0.4-2.0 (mmol/L) Final Flow POC 10/09/2024 20:53 15.0 (L/min) Final Temperature POC 10/09/2024 20:53 37.0 Final Note by POC 10/09/2024 20:53 G. Escobar Final Note when POC 10/09/2024 20:53 2023 Final 12 20:54:00. Juan Test POC 10/09/2024 20:53 POSITIVE Final Sample Type POC 10/09/2024 20:53 Arterial Final Site POC 10/09/2024 20:53 LEFT RADIAL F inal Notified Who W/Readback 10/09/2024 20:53 DR LOPEZ Final Hemoglobin POC 10/09/2024 20:53 11.0 Below low normal 13.7-17 .5 (g/dL) Final Hematocrit POC 10/09/2024 20:53 34 Below low normal 40-51 (%) Final COHB POC 10/09/2024 20:53 2.3 Above high normal 0.5-1.4 (%) Final MetHb POC 10/09/2024 20:53 <0.0 Below low normal 0.4-1.5 (%) Final FO2Hb POC Arterial 10/09/2024 20:53 98.0 Above high normal 94-97 (%) Final % O2 Saturation Arterial 10/09/2024 20:53 >100.0 Above high normal 94-100 (%) Final pH Temp. Cor. POC 10/09/2024 20:53 7.364 7 .35-7. 45 Final pCO2 Temp. Cor. POC 10/09/2024 20:53 45.3 Abov e high normal 35-45 (mm Hg) Final pO2 Temp. Cor. POC 10/09/2024 20:53 130.0 Above high normal 80-100 (mm Hg) Final Interference note: 10/09/2024 20:53 Therapeutic levels of Hydroxocobalamin may cause lower than expected Final values for carboxyhemoglobin (COHb) and methemoglobin (MetHb). Performing Location [facility] [address] [place] [address]
--- OUTSIDE RECORDS SUMMARY | 2024-11-07 07:59 | External Medical Summary ---
Author Name Unknown Address Unknown Organization R1WR:[facility] [address] [place] [address] Laboratory Report Ordering Provider Test Date Status GEORGIANA FIERRO 10/09/2024 20:56:00 Final Observation Date Value Abnormality Reference (Units ) Status Glucose 10/09/2024 21:19 168 Above high normal 70-99 (mg/dL) Final The reference interval for F asting glucose is 70 to 99. The reference interval for Random Glucose is 70 to 139. BUN 10/09/2024 21:19 14 9-23 (mg/dL) Final Creatinine 10/09/2024 21:19 1.35 Above high normal 0.70 -1.30 (mg/dL) Final eGFR 10/09/2024 21:19 51 Below low normal >59 (m L/min/1.73m2) Final eGFR = 142 X [min(Scr/k,1)]* *a [max(Scr/k,1)-1.200x0.9938age X 1.012 [if female] Where Scr is serum creatinine; k is 0.7 for females and 0.9 males; a is -0.241 for females and -0.302 for males; min indicates the minimum of Scr/k or 1, max indicates the maximum of Scr/k or 1 Sodium 10/09/2024 21:19 136 136-145 (mmol /L) Final Potassium 10/09/2024 21:19 4.1 3.4-5.0 (mmol /L) Final Chloride 10/09/2024 21:19 98 98-112 (mmol/ L) Final CO2 10/09/2024 21:19 29 20-31 (mmol/L ) Final Anion Gap 10/09/2024 21:19 13 6-15 (mmol/L) Final Calcium 10/09/2024 21:19 9.2 8.3-10.6 (mg/ dL) Final Total Protein 10/09/2024 21:19 6.9 5.7-8.2 ( g/dL) Final Albumin 10/09/2024 21:19 3.5 3.4-5.0 (g/dL ) Final Bilirubin, Total 10/09/2024 21:19 1.6 Above high davis l 0.0-0.8 (mg/dL) Final AST 10/09/2024 21:19 76 Above high normal 13-40 (U/L) Final ALT 10/09/2024 21:19 33 7-40 (U/L) Fi nal Alkaline Phosphatase 10/09/2024 21:19 78 46 -116 (U/L) Final Performing Location [facility] [address] [place] [address]
--- OUTSIDE RECORDS SUMMARY | 2024-11-07 07:59 | External Medical Summary ---
Author Name Unknown Address Unknown Organization R1WR:[facility] [address] [place] [address] Laboratory Report Ordering Provider Test Date Status JOHN BREWER 10/09/2024 22:47:00 Final Observation Date Value Abnormality Reference (Units ) Status Procalcitonin 10/09/2024 23:27 0.41 Above high normal < 0.10 (ng/mL) Final Performing Location [facility] [address] [place] [address]
--- OUTSIDE RECORDS SUMMARY | 2024-11-07 07:59 | External Medical Summary ---
Author Name Unknown Address Unknown Organization R1WR:[facility] [address] [place] [address] Laboratory Report Ordering Provider Test Date Status JOHN JOHNSON 10/09/2024 21:27:00 Final Observation Date Value Abnormality Reference (Units ) Status Specimen Description 10/09/2024 20:59 Blood Final Special Requests 10/09/2024 21:45 2 RAC Final Culture 10/12/2024 07:28 No Growth 3 Days Final Report Status 10/12/2024 07:28 Pending Final Performing Location [facility] [address] [place] [address]
--- OUTSIDE RECORDS SUMMARY | 2024-11-07 07:59 | External Medical Summary ---
Author Name Unknown Address Unknown Organization R1WR:[facility] [address] [place] [address] Laboratory Report Ordering Provider Test Date Status SHAQ BECKER 10/12/2024 06:56:00 Final Observation Date Value Abnormality Reference (Units ) Status Glucose, POC 10/12/2024 07:05 161 Above high normal 70 -99 (mg/dL) Final Performing Location [facility] [address] [place] [address]
--- OUTSIDE RECORDS SUMMARY | 2024-11-07 07:59 | External Medical Summary ---
Author Name Unknown Address Unknown Organization R1WR:[facility] [address] [place] [address] Laboratory Report Ordering Provider Test Date Status ANN LEUNG 10/10/2024 06:56:00 Final Observation Date Value Abnormality Reference (Units ) Status aPTT 10/10/2024 07:21 37.2 Above high normal 22.6- 34.3 (SEC) Final Performing Location [facility] [address] [place] [address]
--- OUTSIDE RECORDS SUMMARY | 2024-11-07 07:59 | External Medical Summary ---
Author Name Unknown Address Unknown Organization R1WR:[facility] [address] [place] [address] Laboratory Report Ordering Provider Test Date Status SHAQ BECKER 10/10/2024 06:17:00 Final Observation Date Value Abnormality Reference (Units ) Status Glucose, POC 10/10/2024 06:30 164 Above high normal 70 -99 (mg/dL) Final Performing Location [facility] [address] [place] [address]
--- OUTSIDE RECORDS SUMMARY | 2024-11-07 07:59 | External Medical Summary ---
Author Name Unknown Address Unknown Organization R1WR:[facility] [address] [place] [address] Laboratory Report Ordering Provider Test Date Status SHAQ BECKER 10/08/2024 05:58:00 Final Observation Date Value Abnormality Reference (Units ) Status ABO/Rh (D) 10/08/2024 07:07 O POSITIVE F inal Antibody Screen 10/08/2024 07:07 NEGATIVE Final Performing Location [facility] [address] [place] [address]
--- OUTSIDE RECORDS SUMMARY | 2024-11-07 07:59 | External Medical Summary ---
Author Name Unknown Address Unknown Organization R1WR:[facility] [address] [place] [address] Laboratory Report Ordering Provider Test Date Status LAYTONYelenaGEORGIANACARMEN 10/09/2024 20:56:00 Final Observation Date Value Abnormality Reference (Units ) Status Phosphorus 10/09/2024 21:19 3.0 2.5-4.6 (mg/ dL) Final Performing Location [facility] [address] [place] [address]
--- OUTSIDE RECORDS SUMMARY | 2024-11-07 07:59 | External Medical Summary ---
Author Name Unknown Address Unknown Organization R1WR:[facility] [address] [place] [address] Laboratory Report Ordering Provider Test Date Status LAYTONYelenaGEORGIANA BRANDON SHAVONNYLA 10/09/2024 20:56:00 Final Observation Date Value Abnormality Reference (Units ) Status High Sensitivity Troponin I 10/09/2024 21:18 189 Above high normal <45 (ng/L) Final Siemens USINE IO hs-Trop onin I assay measured using the Siemens immunoassay. (Atellica analyzer, Siemens, [facility]) Performing Location [facility] [address] [place] [address]
--- OUTSIDE RECORDS SUMMARY | 2024-11-07 07:59 | External Medical Summary | Summary of Care ---
Author Name Unknown Organization [facility] Address [address] [address] Phone [phone] Care Team Providers Care Locomotive Mechanic Name Role Phone Yury Cash MD Primary [facility] Encounter Details Date Type Department Care Team (Late st Contact Info) Description 10/11/2024 Population Health External Data Unspecified Department Allergies No known active allergiesdocumented as of this encounter (statuses as of 10/11/2024) Medications aspirin enteric coated 81 MG TBEC [...] as of this encounter (statuses as of 10/11/2024) Active Problems Problem Noted Date Diagnosed Date [...] to breakdown of skin 09/27/2023 Atherosclerosis of [place] co ronary artery without angina pectoris 02/09/2023 [...] EDT): Followed by vascular 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, bilateral legs 02/15/2019 Assessment [...] as of this encounter (statuses as of 10/11/2024) Resolved Problems Problem Noted Date Diagnosed Date Resolved Date Paroxysmal A-fib 08/29/2024 09/20/2024 Overview (09/20/2024): duplicate Coronary artery disease invo lving ch[place] coronary artery of [place] heart without angina pectoris 08/29/2024 09/20/2024 Overview [...] of urine 12/22/2023 Urinary tract infection 12/22/2023 100 07/2024 Pneumonia of left lower lobe due to infectious organism 12/22/2023 08/06/2024 Cellulitis of left lower extremity 12/23/2021 12/25/2023 Type 2 diabetes mellitus wit h hemoglobin A1c goal of less than 7.5% 11/14/2019 01/14/2021 Skin ulcer of toe of left fo ot, limited to breakdown of skin 10/13/2018 02/15/2019 Coronary artery disease invo lving [place] heart without angina pectoris 06/01/2018 11/10/2021 DM type 2 causing neurological disease 01/24/2018 01/14/2021 Type 2 diabetes mellitus wit h diabetic nephropathy, without long-term current use of insulin 09/08/2017 09/08/2017 Atherosclerotic heart diseas e of [place] coronary artery with unspecified angina pectoris 09/08/2017 [...] as of this encounter (statuses as of 10/11/2024) Immunizations Name Administration Dates Next Due COVID-19 mRNA, LNP-s, No Pre serve, 2-Dose Series ([employer]) 08/13/2021,01/22/2021,12/27/2020 Covid-19, Mrna, Lnp-s, Pf, B ivalent, [...] 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 [address] [facility] [place] [address] Yury Cash MD [address] [place], [place] [address] [phone] 11/21/2024 8:30 AM EST Office Visit Cardiology, [facility] [address] [place] [address] Sajan Griffith PA-C [address] [place] [address] 05/29/2025 9:45 AM EDT Office [facility] [address] [place] [address] Constantino Weber DO [address] [place] [address] Health Maintenance Due Date Last Done Comments [...] the patient have Health Care Power of Programmer Analyst Consultant? Yes, not currently available Care Teams Locomotive Mechanic Relationship Specialty Start Date End Date Yury Cash MD [address] [place] [address] [place] [phone] PCP - General Family Medicine 07/19/24 documented as of this encounter
--- OUTSIDE RECORDS SUMMARY | 2024-11-07 07:59 | External Medical Summary ---
Author Name Unknown Address Unknown Organization R1WR:[facility] [address] [place] [address] Laboratory Report Ordering Provider Test Date Status SHAQ BECKER 10/08/2024 08:53:00 Final Observation Date Value Abnormality Reference (Units ) Status Glucose, POC 10/08/2024 09:00 169 Above high normal 70 -99 (mg/dL) Final Performing Location [facility] [address] [place] [address]
--- OUTSIDE RECORDS SUMMARY | 2024-11-07 07:59 | External Medical Summary ---
Author Name Unknown Address Unknown Organization R1WR:[facility] [address] [place] [address] Laboratory Report Ordering Provider Test Date Status ELLIOTT MENDOZA 10/12/2024 05:28:00 Final Observation Date Value Abnormality Reference (Units ) Status Glucose 10/12/2024 06:07 166 Above high normal 70-99 (mg/dL) Final The reference interval for F asting glucose is 70 to 99. The reference interval for Random Glucose is 70 to 139. BUN 10/12/2024 06:07 8 Below low normal 9-23 ( mg/dL) Final Creatinine 10/12/2024 06:07 0.92 0.70-1.30 (m g/dL) Final eGFR 10/12/2024 06:07 80 >59 (mL/min/1 .73m2) Final eGFR = 142 X [min(Scr/k,1)]* *a [max(Scr/k,1)-1.200x0.9938age X 1.012 [if female] Where Scr is serum creatinine; k is 0.7 for females and 0.9 males; a is -0.241 for females and -0.302 for males; min indicates the minimum of Scr/k or 1, max indicates the maximum of Scr/k or 1 Sodium 10/12/2024 06:07 140 136-145 (mmol /L) Final Potassium 10/12/2024 06:07 3.7 3.4-5.0 (mmol /L) Final Chloride 10/12/2024 06:07 104 98-112 (mmol/ L) Final CO2 10/12/2024 06:07 26 20-31 (mmol/L ) Final Anion Gap 10/12/2024 06:07 14 6-15 (mmol/L) Final Calcium 10/12/2024 06:07 8.9 8.3-10.6 (mg/ dL) Final Performing Location [facility] [address] [place] [address]
--- OUTSIDE RECORDS SUMMARY | 2024-11-07 07:59 | External Medical Summary ---
Author Name Unknown Address Unknown Organization R1WR:[facility] [address] [place] [address] Laboratory Report Ordering Provider Test Date Status SHAQ BECKER 10/11/2024 15:44:00 Final Observation Date Value Abnormality Reference (Units ) Status Glucose, POC 10/11/2024 15:50 155 Above high normal 70 -99 (mg/dL) Final Performing Location [facility] [address] [place] [address]
--- OUTSIDE RECORDS SUMMARY | 2024-11-07 07:59 | External Medical Summary ---
Author Name Unknown Address Unknown Organization R1WR:[facility] [address] [place] [address] Laboratory Report Ordering Provider Test Date Status ANN LEUNG 10/10/2024 01:39:00 Final Observation Date Value Abnormality Reference (Units ) Status TSH 10/10/2024 02:07 1.96 0.550-4.780 ( uIU/mL) Final Performing Location [facility] [address] [place] [address]
--- OUTSIDE RECORDS SUMMARY | 2024-11-07 07:59 | External Medical Summary ---
Author Name Unknown Address Unknown Organization R1WR:[facility] [address] [place] [address] Laboratory Report Ordering Provider Test Date Status JOHN JOHNSON 10/09/2024 21:27:00 Final Observation Date Value Abnormality Reference (Units ) Status Specimen Description 10/09/2024 20:59 Blood Final Special Requests 10/09/2024 21:46 1 RH Final Culture 10/12/2024 07:28 No Growth 3 Days Final Report Status 10/12/2024 07:28 Pending Final Performing Location [facility] [address] [place] [address]
--- OUTSIDE RECORDS SUMMARY | 2024-11-07 07:59 | External Medical Summary ---
Author Name Unknown Address Unknown Organization R1WR:[facility] [address] [place] [address] Laboratory Report Ordering Provider Test Date Status JOHN BREWER 10/09/2024 22:47:00 Final Observation Date Value Abnormality Reference (Units ) Status Lactic Acid 10/09/2024 23:19 2.2 Above high normal 0.4 -2.0 (mmol/L) Final Clinical correlation advised by the CMS Early Management Bundle for Severe Sepsis and Septic Shock guidelines. If the time between specimen collection and laboratory receipt is 30 minutes or greater, the lactate result may be falsely elevated. The laboratory recommends sample recollection and analysis. Performing Location [facility] [address] [place] [address]
--- OUTSIDE RECORDS SUMMARY | 2024-11-07 07:59 | External Medical Summary | Summary of Care ---
Author Name Unknown Organization [facility] Address [address] [place] [address] Phone [phone] Care Team Providers Care Order Booker Name Role Phone Yury Cash MD Primary Care [facility] Reason for Visit * Reason Onset Date Comments Appointment 10/17/2024 Advice 10/17/2024 Encounter Details Date Type Department Care Team (Late st Contact Info) Description 10/17/2024 Telephone Urology, [place] [address] [place] [address] Services, Scheduling [address] [place] [address] Appointment; Advice Allergies No known active allergiesdocumented as of this encounter (statuses as of 10/18/2024) Medications aspirin enteric coated 81 MG TBEC [...] THE DAY. 90 Capsule 2 4 Active [employer] Ultra 2 w/Device Kit Check blood sugars [...] as needed for Pain, Severe. 20 Tablet 12/02/202 4 Active Additional Information Patient not taking.Reported on 10/09/2024 Docusate Sodium 100 MG Oral Tablet Take 1 Tablet by mouth as needed for Constipation. Active documented as of this encounter (statuses as of 10/18/2024) Active Problems Problem Noted Date Diagnosed Date [...] to breakdown of skin 09/27/2023 Atherosclerosis of [place] co ronary artery without angina pectoris 02/09/2023 [...] EDT): Followed by vascular Unspecified atherosclerosis of [place] arteries of extremities, bilateral legs 02/15/2019 Assessment [...] as of this encounter (statuses as of 10/18/2024) Resolved Problems Problem Noted Date Diagnosed Date Resolved Date Paroxysmal A-fib 08/29/2024 09/20/2024 Overview (09/20/2024): duplicate Coronary artery disease invo lving [place] coronary artery of [place] heart without angina pectoris 08/29/2024 09/20/2024 Overview [...] 10/13/2018 02/15/2019 Coronary artery disease invo lving [place] heart without angina pectoris 06/01/2018 11/10/2021 DM type 2 causing neurological disease 01/24/2018 01/14/2021 Type 2 diabetes mellitus wit h diabetic nephropathy, without long-term current use of insulin 09/08/2017 09/08/2017 Atherosclerotic heart diseas e of [place] coronary artery with unspecified angina pectoris 09/08/2017 11/15/2017 Stricture of artery 09/08/2017 01/16/20 18 Paroxysmal A-fib 05/17/2016 11/14/2019 Sepsis 05/17/2016 [...] as of this encounter (statuses as of 10/18/2024) Immunizations Name Administration Dates Next Due COVID-19 mRNA, LNP-s, No Pre serve, 2-Dose Series ([employer]) 08/13/2021,01/22/2021,12/27/2020 Covid-19, Mrna, Lnp-s, Pf, B ivalent, 30 Mcg, IM, 12 yrs and above ([employer]) 11/09/2022 Pneumococcal Conjugate Vacc, 13 Valent (Prevnar) [...] 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 Answer Date of Assessment Author No 07/30/2024 9:07 AM EDMoses Velásquez RN * Are you blind or do [...] 10/17/2024 9:13 AM EST Sonja calling from [facility] Vascular on Pt. Behalf Pt was recently [...] Team (Late st Contact Info) Description 10/22/2024 3:20 PM EST Office Visit [address] [phone] Cristina Ayala PA-C [address] [place] [address] 10/25/2024 7:00 AM EST Laboratory [facility] [phone] [facility] [address] [place] [address] 11/01/2024 11:40 AM EST Office Visit [address] [phone] Yury Cash MD [address] [place] [phone] 11/05/2024 8:30 AM EST Office Visit Urology, [place] [address] [place] [address] Dariel Smith PA-C [address] [place] [address] 11/21/2024 8:30 AM EST Office Visit Cardiology, [facility] [address] [place] [address] Sajan Griffith PA-C [address] [place] [address] 05/29/2025 9:45 AM EDT Office Visit [facility] [address] [place] [address] Constantino Weber DO [address] [place] [address] Health Maintenance Due Date Last Done Comments Colonoscopy 01/20/2016 01/19/2011, 12/29, 01/07/2011, Additional history exists Albumin/Creatinine Ratio 05/07/[address] 022, 04/11/2021, 05/28/2020, Additional history exists COVID-19 Vaccine ( season) 2024 11/09/2022, 08/13/2021, 01/22/2021, Additional history exists HbA1c 04/01/2025 10/01/2024, 07/31, 07/19/2024, Additional history exists B-12 05/17/2025 05/17/2024, 05/05/2024, [...] the patient have Health Care Power of Assistant Counsel? Yes, not currently available Care Teams Order Booker Relationship Specialty Start Date End Date Yury Cash MD [address] [place] [phone] PCP - General Family Medicine 07/19/24 documented as of this encounter
--- OUTSIDE RECORDS SUMMARY | 2024-11-07 07:59 | External Medical Summary ---
Author Name Unknown Address Unknown Organization R1WR:[facility] [address] [place] [address] Laboratory Report Ordering Provider Test Date Status SHAQ BECKER 10/09/2024 23:51:00 Final Observation Date Value Abnormality Reference (Units ) Status Glucose, POC 10/09/2024 23:58 218 Above high normal 70 -99 (mg/dL) Final Performing Location [facility] [address] [place] [address]
--- OUTSIDE RECORDS SUMMARY | 2024-11-07 07:59 | External Medical Summary ---
Author Name Unknown Address Unknown Organization R1WR:[facility] [address] [place] [address] Laboratory Report Ordering Provider Test Date Status EUGENIONEW 10/08/2024 05:58:00 Final Observation Date Value Abnormality Reference (Units ) Status BUN 10/08/2024 06:21 15 9-23 (mg/dL) Final Performing Location [facility] [address] [place] [address]
--- OUTSIDE RECORDS SUMMARY | 2024-11-07 07:59 | External Medical Summary ---
Author Name Unknown Address Unknown Organization R1WR:[facility] [address] [place] [address] Laboratory Report Ordering Provider Test Date Status GEORGIANA FIERRO 10/09/2024 20:56:00 Final Observation Date Value Abnormality Reference (Units ) Status Lactic Acid 10/09/2024 21:41 4.6 Above upper panic pleitez its 0.4-2.0 (mmol/L) Final [facility] S[facility] AT [id number]. THE RESULTS WERE READ BACK AND VERIFIED BY: EWA CHA IN 1E5 If the time between specimen collection and laboratory receipt is 30 minutes or greater, the lactate result may be falsely elevated. The laboratory recommends sample recollection and analysis. Performing Location [facility] [address] [place] [address]
--- OUTSIDE RECORDS SUMMARY | 2024-11-07 07:59 | External Medical Summary | Summary of Care ---
Author Name Unknown Organization [facility] Address [address] [place] [address] Phone [phone] Care Team Providers Care Director Informatics Name Role Phone Yury Cash MD [facility] Encounter Details Date Type Department Care Team (Latest Contact Info) Description 10/09/2024 [facility] [address], [place] [id number] [facility] [address] [place] [address] Referred for management of medication therapy* Allergies No known active allergiesdocumented as of this encounter (statuses as of 10/10/2024) Medications aspirin enteric coated 81 MG TBEC [...] THE DAY. 90 Capsule 2 4 Active VGTelTouch Ultra 2 w/Device Kit Check blood sugars [...] as needed for Pain, Severe. 20 Tablet Active Additional Information Patient not taking.Reported on 10/09/2024 Docusate Sodium 100 MG Oral Tablet Take 1 Tablet by mouth as needed for Constipation. Active documented as of this encounter (statuses as of 10/10/2024) Active Problems Problem Noted Date Diagnosed Date [...] to breakdown of skin 09/27/2023 Atherosclerosis of [place] co ronary artery without angina pectoris 02/09/2023 [...] EDT): Followed by vascular Unspecified atherosclerosis of [place] arteries of extremities, bilateral legs 02/15/2019 Assessment [...] as of this encounter (statuses as of 10/10/2024) Resolved Problems Problem Noted Date Diagnosed Date Resolved Date Paroxysmal A-fib 08/29/2024 09/20/2024 Overview (09/20/2024): duplicate Coronary artery disease invo lving [place] coronary artery of [place] heart without angina pectoris 08/29/2024 09/20/2024 Overview [...] 10/13/2018 02/15/2019 Coronary artery disease invo lving [place] heart without angina pectoris 06/01/2018 11/10/2021 DM type 2 causing neurological disease 01/24/2018 01/14/2021 Type 2 diabetes mellitus wit h diabetic nephropathy, without long-term current use of insulin 09/08/2017 09/08/2017 Atherosclerotic heart diseas e of [place] coronary artery with unspecified angina pectoris 09/08/2017 [...] as of this encounter (statuses as of 10/10/2024) Immunizations Name Administration Dates Next Due COVID-19 mRNA, LNP-s, No Pre serve, 2-Dose Series (better.) 08/13/2021,01/22/2021,12/27/2020 Covid-19, Mrna, Lnp-s, Pf, B ivalent, [...] 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 Start 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 Objective: Review of patient's allergies indicates: No Known Allergies Current Outpatient Medications - WARNING: List may be incomplete due to filtering Medication Sig Dispense Refill Docusate Sodium 100 MG Oral Tablet Take 1 Tablet by mouth as needed for Constipation. Mirabegron ER 50 MG Oral Tablet Extended Release 24 Hour (Myrbetriq) TAKE 1 TABLET BY MOUTH IN THE MORNING 90 Tablet 0 metFORMIN HCl ER 500 MG Oral Tablet Extended Release 24 Hour (Glucophage XR) Take 2 Tablets by mouth 2 times a day with morning and evening meals. 400 Tablet 1 Apixaban 5 MG Oral Tablet (Eliquis) Take 1 Tablet by mouth in the morning and 1 Tablet before bedtime. 180 Tablet 3 Gabapentin 600 MG Oral Tablet (Neurontin) TAKE ONE TABLET BY MOUTH THREE TIMES A DAY 270 Tablet 1 Acetaminophen 500 MG Oral Tablet (Tylenol) Take 1 Tablet by mouth every 6 hours as needed. Furosemide 40 MG Oral Tablet (Lasix) Take 1 Tablet by mouth in the morning. 30 Tablet 3 Metoprolol Succinate ER 100 MG Oral Tablet Extended Release 24 Hour (toPROL XL) Take 1 Tablet by mouth in the morning and 1 Tablet before bedtime. 60 Tablet 3 Atorvastatin Calcium 40 MG Oral Tablet (Lipitor) TAKE ONE TABLET BY MOUTH EVERY DAY 100 Tablet 1 Allopurinol 300 MG Oral Tablet (Zyloprim) TAKE ONE TABLET BY MOUTH EVERY DAY 90 Tablet 3 Omeprazole 20 MG Oral Capsule Delayed Release (PriLOSEC) TAKE 1 CAPSULE BY MOUTH IN THE MORNING. TAKE 1 HOUR BEFORE THE FIRST MEAL OF THE DAY. 90 Capsule 2 Multiple Vitamin (ONE-A-DAY MENS) Tablet Take 1 Tablet by mouth in the morning. aspirin enteric coated 81 MG TBEC Take 1 Tablet by mouth in the morning. HYDROcodone-Acetaminophen 10-325 MG Oral Tablet Take 1 Tablet by mouth 2 times a day as needed for Pain, Severe. (Patient not taking: Reported on 10/09/2024) 20 Tablet 0 Bisacodyl 10 MG Rectal Suppository (Dulcolax) Administer 1 Suppository into the rectum daily as needed for Constipation. (Patient not taking: Reported on 10/09/2024) VGTelTouch Ultra 2 w/Device Kit Check blood sugars once daily 1 Kit 0 OneTouch Ultra Blue In Vitro Strip (Glucose Blood) USE 1 STRIP TO CHECK GLUCOSE ONCE DAILY, dx E11.40 100 Strip 3 ONETOUCH DELICA LANCETS FINE MISC Check blood sugars once daily, E11.9, not using insulin, 100 Each3 Immunization History Administered Date(s) Administered COVID-19 mRNA, LNP-s, No Preserve, 2-Dose Series (better.) 12/27/2020, 01/22/2021, 08/13/2021 Covid-19, Mrna, Lnp-s, Pf, Bivalent, 30 Mcg, IM, 12 yrs and above (Pfizer) 11/09/2022 Pneumococcal Conjugate Vacc, 13 Valent (Prevnar) 04/21/2015 Pneumococcal Polysaccharide PPV23 (Pneumovax) 09/07/2010 Season Influenza, Quad, PF, Adjuvanted, 65+ Yrs, IM (FLUAD) 07/12/2020 Seasonal Influenza Vac., MDV, IM, 0.5 mL (Fluzone) 09/07/2010, 07/12/2011, 08/07/2012, 08/22/2013, 09/16/2014, 07/07/2016 Seasonal Influenza, High Dose, Trivalent, PF, IM (Fluzone HD) 07/19/2024 Seasonal Influenza, PF, 6 M & above, IM , (FluLaval or Fluzone) 09/08/2017 Seasonal Influenza, Quadrivalent Hd (Fluzone Hd) 07/02/2022, 07/13/2023 Seasonal Influenza, Quadrivalent, No Preserve, IM 09/15/2015, 07/27/2018 Seasonal Influenza, Trivalent, Adjuvanted, 65+ YRS, PF, (Fluad) 07/04/2019 TDAP (age 10 and older)(Boostrix) 04/02/2023 TDAP, Age 7 and older, IM (Adacel) 03/11/2012 Varicella Zoster Vaccine (Adult) 04/08/2014 Vitamin B12 Injection 09/28/2010 Zoster Vaccine Recombinant (Shingrix) 11/16/2019, 05/07/2021 TMR Interventions TMR Patient Education - Safe Medication Use (Opioid Therapy): TRAMADOL HCL TAB 50MG Incomplete Encounter MTPs No medication therapy recommendations to display Complete Encounter MTPs Referred for management of medication therapy 1 Current Medication: HYDROcodone-Acetaminophen 10-325 MG Oral Tablet Current Medication Sig: Take 1 Tablet by mouth 2 times a day as needed for Pain, Severe. Rationale: Patient Education - Needs Education - Safety Recommendation: Provide Education Status: Accepted - no CPA Needed Identified Date: 10/09/2024 Completed Date: 10/10/2024 Note: patient understanding of opioid therapy and risks Assessment & Plan Indication, effectiveness, safety and convenience of his medications were reviewed today. The patient's medical conditions were assessed, evaluated, and deemed meeting goals of drug therapy, with thefollowing exceptions. Additional Notes: none Summary Time Spent: 31-45 min Supervising pharmacist who provided the service: Jeferson Chatman RPh Takephani Information Who was the recipient of the CMR service: other authorized individual Language Template for the Patient Takeaway: Salvadorean I attest that I have reviewed and updated the patient's conditions, allergies, and medications to the best of my ability. Patient provided medication list gathered by: Jeremy Cervantes RPh 10/10/2024, 4:56 PM documented in this encounter Miscellaneous Notes * MTM To-Do-List - Jeferson Chatman RPh - 10/10/2024 4:50 PM EST Images from the original note were not included. What we talked about: What I should do: The importance of taking your medication as prescribed Your medicine works best when taken as prescribed. It can be hard to remember to take daily medications. Consider making it a part of your daily routine. Pair taking your medication with something you do every day, like brushing your teeth or eating a meal. Consider setting daily alarms to help remind yourself when it is time to take your medicine. Using a pill box can also help you organize your medicines. Pill boxes allow you to fill each day slot with your daily medicine and help you track when your next dose is due. What we talked about: What I should do: Falls can be a serious concern for older adults, but with the right knowledge and precautions, theycan be prevented. By following these recommendations, you can maintain your independence and enjoy a higher quality of life. Keep your living space clutter-free by tidying up any loose items, electrical cords, or rugs that could cause you to trip and fall Ensure all areas of your home are well-lit, especially hallways, staircases, and entrances. Use nightlights to help navigate during nighttime. Use non-slip mats or double-sided tape to prevent rugs and carpets from sliding or bunching up, which can lead to slips and falls. Place handrails on both sides of staircases and grab bars in bathrooms near toilets, showers, and bathtubs for added stability and support. Engage in exercises that focus on strength, balance, and flexibility. Simple activities like walking, giovany chi, or chair exercises can help improve your overall stability. Before starting any exercise program, consult your healthcare provider to ensure it is suitable foryour current health condition. If needed, use walking aids like canes or walkers to provide additional support and stability whilemoving Wear well-fitting shoes with good arch support and a non-slip sole. Avoid high heels, flip-flops, and shoes with worn-out soles Slow down and be mindful of your movements. Rushing or sudden changes in position can lead to imbalance What we talked about: What I should do: Cat This medication is meant to thin your blood to prevent clots. Medications that thin your blood can increase risk of bleeds. These medications may cause you to bruise more easily, to have a longer stop time of bleeding if you cut yourself, to have increase in nose bleeds, as well as to make your gums more likely to bleed when brushing your teeth. Advise your doctor of any signs of bleedingsuch as blood in urine or stool, bruises that begin to bleed, bleeding that is not controlled aftera few hours, or a big fall where you hit your head. Also if you do have a bruise, keep an eye on itand make sure it doesn't get any bigger * MTM Personal Medication List - Jeferson Chatman RPh - 10/10/2024 4:48 PM EST Medication How I take it Why I use it Prescriber Acetaminophen 500 MG Oral Tablet (Tylenol) Take 1 Tablet by mouth every 6 hours as needed. Pain Self Allopurinol 300 MG Oral Tablet (Zyloprim) TAKE ONE TABLET BY MOUTH EVERY DAY Gout Eron Tovar DO Apixaban 5 MG Oral Tablet (Eliquis) Take 1 Tablet by mouth in the morning and 1 Tablet before bedtime. Blood clot prevention Yury Cash MD aspirin enteric coated 81 MG TBEC Take 1 Tablet by mouth in the morning. Heart health Self Atorvastatin Calcium 40 MG Oral Tablet (Lipitor) TAKE ONE TABLET BY MOUTH EVERY DAY High cholesterol Eron Tovar DO Docusate Sodium 100 MG Oral Tablet Take 1 Tablet by mouth as needed for Constipation. Constipation Self Furosemide 40 MG Oral Tablet (Lasix) Take 1 Tablet by mouth in the morning. Fluid retention Diego Guan DO Gabapentin 600 MG Oral Tablet (Neurontin) TAKE ONE TABLET BY MOUTH THREE TIMES A DAY Nerve pain Yury Cash MD metFORMIN HCl ER 500 MG Oral Tablet Extended Release 24 Hour (Glucophage XR) Take 2 Tablets by mouth 2 times a day with morning and evening meals. Diabetes Yury Cash MD Metoprolol Succinate ER 100 MG Oral Tablet Extended Release 24 Hour (toPROL XL) Take 1 Tablet by mouth in the morning and 1 Tablet before bedtime. High blood pressure Diego Guan DO Mirabegron ER 50 MG Oral Tablet Extended Release 24 Hour (Myrbetriq) TAKE 1 TABLET BY MOUTH IN THE MORNING Prostate Bharath Monaco MD Multiple Vitamin (ONE-A-DAY MENS) Tablet Take 1 Tablet by mouth in the morning. General health Self Omeprazole 20 MG Oral Capsule Delayed Release (PriLOSEC) TAKE 1 CAPSULE BY MOUTH IN THE MORNING. TAKE 1 HOUR BEFORE THE FIRST MEAL OF THE DAY. Acid reflux Eron Tovar DO documented in this encounter Plan of Treatment Upcoming Encounters Date Type Department Care Team (Late st Contact Info) Description 10/25/2024 7:00 AM EST Laboratory Laboratory Patient Service [address] [phone] Radha, Lab Lock [facility] KEITH KIMBERLYVIDHI [place] [address] 11/01/2024 11:40 AM EST Office Visit [facility] Keith Garcia [address] [place] [address] Yury Cash MD [address] [place] [address] [place] [phone] 11/21/2024 8:30 AM EST Office Visit Cardiology, [facility] [address] [place] [address] Sajan Griffith PA-C [address] [place] [address] 05/29/2025 9:45 AM EDT [facility] [address] [place] [address] Constantino Weber DO [address] [place] [address] Health Maintenance Due Date Last Done Comments [...] fibrillation (HCC)- Primary Atrial fibrillation Atherosclerosis of [place] artery of both lower extremities with other clinical manifestation (HCC) Hyperlipidemia associated with type 2 diabetes mellitus (HCC) Abdominal aortic aneurysm (AAA) without rupture, unspecified part (HCC) Aneurysm of ascending aorta without rupture (HCC) 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 Yes, not currently available Care Teams Director Informatics Relationship Specialty Start Date End Date Yury Cash MD [address] [place] [phone] PCP - General Family Medicine 07/19/24 documented as of this encounter
--- OUTSIDE RECORDS SUMMARY | 2024-11-07 07:59 | External Medical Summary ---
Author Name Unknown Address Unknown Organization R1WR:[facility] [address] [place] [address] Laboratory Report Ordering Provider Test Date Status SHAQ BECKER 10/08/2024 10:39:00 Final Observation Date Value Abnormality Reference (Units ) Status Glucose, POC 10/08/2024 10:46 156 Above high normal 70 -99 (mg/dL) Final Performing Location [facility] [address] [place] [address]
--- OUTSIDE RECORDS SUMMARY | 2024-11-07 07:59 | External Medical Summary ---
Author Name Unknown Address Unknown Organization [facility] [address] [place] [address] Laboratory Report Ordering Provider Test Date Status ELLIOTT MENDOZA 10/10/2024 03:45:00 Final Observation Date Value Abnormality Reference (Units ) Status Glucose 10/10/2024 04:27 175 Above high normal 70-99 (mg/dL) Final The reference interval for F asting glucose is 70 to 99. The reference interval for Random Glucose is 70 to 139. BUN 10/10/2024 04:27 13 9-23 (mg/dL) Final Creatinine 10/10/2024 04:27 1.09 0.70-1.30 (m g/dL) Final eGFR 10/10/2024 04:27 65 >59 (mL/min/1 .73m2) Final eGFR = 142 X [min(Scr/k,1)]* *a [max(Scr/k,1)-1.200x0.9938age X 1.012 [if female] Where Scr is serum creatinine; k is 0.7 for females and 0.9 males; a is -0.241 for females and -0.302 for males; min indicates the minimum of Scr/k or 1, max indicates the maximum of Scr/k or 1 Sodium 10/10/2024 04:27 138 136-145 (mmol /L) Final Potassium 10/10/2024 04:27 3.8 3.4-5.0 (mmol /L) Final Chloride 10/10/2024 04:27 105 98-112 (mmol/ L) Final CO2 10/10/2024 04:27 26 20-31 (mmol/L ) Final Anion Gap 10/10/2024 04:27 11 6-15 (mmol/L) Final Calcium 10/10/2024 04:27 8.1 Below low normal 8.3-10 .6 (mg/dL) Final Performing Location [facility] [address] [place] [address]
--- OUTSIDE RECORDS SUMMARY | 2024-11-07 07:59 | External Medical Summary ---
Author Name Unknown Address Unknown Organization R1WR:[facility] [address] [place] [address] Laboratory Report Ordering Provider Test Date Status ANN LEUNG 10/10/2024 09:20:00 Final Observation Date Value Abnormality Reference (Units ) Status Magnesium 10/10/2024 09:46 1.5 Below low normal 1.6-2. 6 (mg/dL) Final Performing Location [facility] [address] [place] [address]
--- OUTSIDE RECORDS SUMMARY | 2024-11-07 07:59 | External Medical Summary ---
Author Name Unknown Address Unknown Organization R1WR:[facility] [address] [place] [address] Laboratory Report Ordering Provider Test Date Status ELLIOTT MENDOZA 10/12/2024 05:28:00 Final Observation Date Value Abnormality Reference (Units ) Status WBC 10/12/2024 05:54 5.9 4.0-9.1 (X10E+09/L) Final RBC 10/12/2024 05:54 3.43 Below low normal 4.6-6.1 (X10E+12/L) Final Hemoglobin 10/12/2024 05:54 9.0 Below low normal 13.4-17.5 (g/dL) Final Hematocrit 10/12/2024 05:54 29.9 Below low normal 40-51 (%) Final MCV 10/12/2024 05:54 87.2 79-92 (fL) Final MCH 10/12/2024 05:54 26.2 26.0-32.0 (pg) Final MCHC 10/12/2024 05:54 30.1 Below low normal 32-37 (g/dL) Final Platelets 10/12/2024 05:54 157 150-330 (X10E+09/L) Final RDW 10/12/2024 05:54 18.0 Above high normal 11.6-14.4 (%) Final Absolute NRBC 10/12/2024 05:54 0.00 0 (X10E+09/L) Final Absolute Neutrophils 10/12/2024 05:54 3.92 1.6-6.1 (X10E+09/L) Final Absolute Lymphocytes 10/12/2024 05:54 1.08 Below low normal 1.3-3.6 (X10E+09/L) Final Absolute Monocytes 10/12/2024 05:54 0.74 0.3-0.8 (X10E+09/L) Final Absolute Eosinophils 10/12/2024 05:54 0.17 0.0-0.5 (X10E+09/L) Final Absolute Basophils 10/12/2024 05:54 0.02 0.0-0.1 (X10E+09/L) Final Nucleated RBC 10/12/2024 05:54 0.0 0.0-0.2 (/100 WBC) Final Neutrophils 10/12/2024 05:54 65.4 34.0-67.9 (%) Final Lymphocytes 10/12/2024 05:54 18.2 Below low normal 21.8-53.1 (%) Final Monocytes 10/12/2024 05:54 12.5 Above high normal 5.3-12.2 (%) Final Eosinophils 10/12/2024 05:54 2.9 0.8-7.0 (%) Final Basophils 10/12/2024 05:54 0.3 0.1-1.2 (%) Final Performing Location [facility] [address] [place] [address]
--- OUTSIDE RECORDS SUMMARY | 2024-11-07 07:59 | External Medical Summary ---
Author Name Unknown Address Unknown Organization R1WR:[facility] [address] [place] [address] Laboratory Report Ordering Provider Test Date Status JOHN BREWER 10/11/2024 21:08:00 Final Observation Date Value Abnormality Reference (Units ) Status Vancomycin AUC2 10/11/2024 21:35 8.3 Below low normal 10.0-20.0 (mcg/mL) Final Performing Location [facility] [address] [place] [address]
--- OUTSIDE RECORDS SUMMARY | 2024-11-07 07:59 | External Medical Summary ---
Author Name Unknown Address Unknown Organization R1WR:[facility] [address] [place] [address] Laboratory Report Ordering Provider Test Date Status ELLIOTT MENDOZA 10/10/2024 03:45:00 Final Observation Date Value Abnormality Reference (Units ) Status High Sensitivity Troponin I 10/10/2024 04:30 826 Above upper panic limits <45 (ng/L) Final [id number] CALLED CRITICA L RESULTS AT [id number]. THE RESULTS WERE READ BACK AND VERIFIED BY: Ayo Vega [facility] hs-Troponin I assay measured using the Siemens immunoassay. (Atellica analyzer, Siemens, [facility]) Performing Location [facility] [address] [place] [address]
--- OUTSIDE RECORDS SUMMARY | 2024-11-07 07:59 | External Medical Summary ---
Author Name Unknown Address Unknown Organization R1WR:[facility] [address] [place] [address] Laboratory Report Ordering Provider Test Date Status SHAQ BECKER 10/12/2024 10:44:00 Final Observation Date Value Abnormality Reference (Units ) Status Glucose, POC 10/12/2024 10:51 202 Above high normal 70 -99 (mg/dL) Final Performing Location [facility] [address] [place] [address]
--- OUTSIDE RECORDS SUMMARY | 2024-11-07 07:59 | External Medical Summary ---
Author Name Unknown Address Unknown Organization R1WR:[facility] [address] [place] [address] Laboratory Report Ordering Provider Test Date Status SHAQ BECKER 10/09/2024 20:30:00 Final Observation Date Value Abnormality Reference (Units ) Status Glucose, POC 10/09/2024 20:36 182 Above high normal 70 -99 (mg/dL) Final Performing Location [facility] [address] [place] [address]
--- OUTSIDE RECORDS SUMMARY | 2024-11-07 07:59 | External Medical Summary ---
Author Name Unknown Address Unknown Organization R1WR:[facility] [address] [place] [address] Laboratory Report Ordering Provider Test Date Status SHAQ BECKER 10/08/2024 05:58:00 Final Observation Date Value Abnormality Reference (Units ) Status Sodium 10/08/2024 06:21 140 136-145 (mmol /L) Final Potassium 10/08/2024 06:21 3.9 3.4-5.0 (mmol /L) Final Performing Location [facility] [address] [place] [address]
--- OUTSIDE RECORDS SUMMARY | 2024-11-07 08:00 | External Medical Summary | Summary of Care ---
Author Name Unknown Organization [facility] Address [address] [place] [address] Phone [phone] Care Team Providers [employer] Director Name Role Phone Yury Cash MD Primary Care Provi quinten Reason for Visit * Reason Comments Acute Pt here today due to his left foot being red and swollen and painful Encounter Details Date Type Department Care Team (Late st Contact Info) Description 10/01/2024 2:40 PM EST Office Visit [facility] [address] [place] [phone] James Sweeney MD [address] [place] [phone] Ischemic foot*; 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 (HCC); Idiopathic chronic gout of multiple sites without tophus; Type 2 diabetes mellitus with diabetic neuropathy, without long-term current use of insulin (HCC) Allergies No known active allergiesdocumented as of this encounter (statuses as of 10/02/2024) Medications aspirin enteric coated 81 MG TBEC [...] 9:50 AM EDT 11/17/19 24 025 Active Additional Information Patient taking differently: 300 mg Oral [id number], Reported on 10/01/2024 Omeprazole 20 MG Oral Capsule Delayed Release (PriLOSEC)Indica tions:Dysphagia TAKE 1 CAPSULE BY MOUTH IN THE MORNING. TAKE 1 HOUR BEFORE THE FIRST MEAL OF THE DAY. 90 Capsule 2 11/17/19 24 Active Additional Information Patient taking differently: 20 mg Oral EVERY OTHER DAY, Reported on 10/01/2024 [facility] 2 w/Device Kit Check blood sugars once daily 1 Kit 01/31/2024 11:32 AM EDT 01/31/20 24 Active Atorvastatin Calcium 40 MG Oral Tablet (Lipitor)Indicat ions:Dyslipidemi a, goal LDL below 100 TAKE ONE TABLET BY MOUTH EVERY DAY 100 Tablet 1 07/17/2024 4:51 PM EDT 07/16/20 24 Active Additional Information Patient taking differently: [id number], Reported on 09/17/2024 Metoprolol Succinate ER 100 MG Oral Tablet Extended Release 24 Hour (toPROL XL) Take 1 Tablet by mouth in the morning and 1 Tablet before bedtime. 60 Tablet 3 08/02/20 24 Active Furosemide 40 MG Oral Tablet [...] neuropathy, without long-term current use of insulin ([facility]) Take 2 Tablets by mouth 2 times a day with morning and evening meals. 400 Tablet 1 10/02/2024 10:41 AM EST 09/17/20 24 Active Mirabegron ER 50 MG Oral Tablet Extended Release 24 Hour (Myrbetriq)Indic ations:Urge incontinence TAKE 1 TABLET BY MOUTH IN THE MORNING 90 Tablet 09/26/20 24 Active HYDROcodone-Acet aminophen 10-325 MG Oral Tablet Take 1 Tablet by mouth 2 times a day as needed for Pain, Severe. 20 Tablet 10/01/20 24 Active methylPREDNISolo ne 4 MG Oral Tablet Therapy Pack (Medrol Dosepack)Indicat ions:Gout of big toe follow package directions 21 Tablet 09/17/20 24 024 Discontin ued(Patie nt preferenc e/discont inuation) Metoprolol Succinate ER 50 MG Oral Tablet Extended Release 24 Hour (toPROL XL)Indications:P aroxysmal A-fib ([facility]) TAKE ONE TABLET BY MOUTH EVERY DAY AT NOON 90 Tablet 3 09/18/2024 11:38 AM EST 09/17/20 24 024 Discontin ued(Patie nt preferenc e/discont inuation) documented as of this encounter (statuses as of 10/02/2024) Active Problems Problem Noted Date Diagnosed Date [...] to breakdown of skin 09/27/2023 Atherosclerosis of iliamna co ronary artery without angina pectoris 02/09/2023 [...] EDT): Followed by vascular 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, bilateral legs 02/15/2019 Assessment [...] chronic gout of multiple sites withou t zaksarthaks 10/14/2014 Hx of nonmelanoma skin cancer 08/21/2012 [...] as of this encounter (statuses as of 10/02/2024) Resolved Problems Problem Noted Date Diagnosed Date Resolved Date Paroxysmal A-fib 08/29/2024 09/20/2024 Overview (09/20/2024): duplicate Coronary artery disease invo lving iliamna coronary artery of iliamna heart without angina pectoris 08/29/2024 09/20/2024 Overview [...] 10/13/2018 02/15/2019 Coronary artery disease invo lving iliamna heart without angina pectoris 06/01/2018 11/10/2021 DM type 2 causing neurological disease 01/24/2018 01/14/2021 Type 2 diabetes mellitus wit h diabetic nephropathy, without long-term current use of insulin 09/08/2017 09/08/2017 Atherosclerotic heart diseas e of iliamna coronary artery with unspecified angina pectoris 09/08/2017 [...] as of this encounter (statuses as of 10/02/2024) Immunizations Name Administration Dates Next Due COVID-19 mRNA, LNP-s, No Pre serve, 2-Dose Series (VIRIDAXIS) 08/13/2021,01/22/2021,12/27/2020 Covid-19, Mrna, Lnp-s, Pf, B ivalent, [...] Vaccine (Adult) 04/08/2014 Zoster Vaccine Recombinant (Shingrix) 11/16/2019 documented as of this encounter Social History Tobacco Use Types Packs/Day Years Used Date Smoking Tobacco: Former Cigarettes 1 37 0 10/31/1952 - 10/31/1989 Cigars Passive Smoke Exposure: Past Smokeless Tobacco: Never Tobacco Cessation:Counseling Given: Not Answered Comments:Started smoking age - 17 - 18 [...] No 08/07/2024 Does the household have a [facility] source of income? 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 Not on fi le Not on file documented as of this encounter Last Filed Vital Signs Vital Sign Reading Time Taken Comments Blood Pressure 130/72 10/01/2024 2:45 PM EST Pulse 71 10/01/2024 2:45 PM EST Temperature 36.5 C (97.7 F) 10/01/2024 2:45 PM ES T Respiratory Rate 18 10/01/2024 2:45 PM EST Oxygen Saturation 95% 10/01/2024 2:45 PM EST Inhaled Oxygen Concentration - - Weight 100.7 kg (222 lb) 10/01/2024 2:45 PM EST Height - - Body Mass Index 31.85 08/06/2024 9:11 AM EDT documented in this [...] documented in this encounter Progress Notes * James Sweeney MD - 10/01/2024 3:07 PM EST Images from the original note were not included. Subjective Gomez Suarez is a 88 year old male. Chief Complaint Patient presents with Acute Pt here today due to his left foot being red and swollen and painful HPI: Here for recurrent pain swelling , red purplish color change of lt foot to ankle Pt has known gout but normal uric acid level and taking allopurinol 300 mg Pt recently visited ER for same reason for PAD, ischemic foot issue F/u with vascular and has f/u appointment and planning to have revascularization Taking lipitor, eliquis, asa for his medical conditions Pain severe to moderate, persistent Advised him to go to ER bu declined Known type 2 DM, hba1c 8.3 , getting worse too PMH: Patient Active Problem List Diagnosis After cataract not obscuring vision Dyslipidemia, goal LDL below 70 History of malignant melanoma of skin Hx of nonmelanoma skin cancer Idiopathic chronic gout of multiple sites without tophus Paroxysmal atrial fibrillation (HCC) S/P right coronary artery (RCA) stent placement Type 2 diabetes mellitus with diabetic neuropathy, without long-term current use of insulin (HCC) 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, bilateral legs (HCC) Abdominal aortic aneurysm (AAA) without rupture (HCC) CKD (chronic kidney disease) stage 2, GFR 60-89 ml/min 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 (HCC) Atherosclerosis of iliamna coronary artery without angina pectoris Skin ulcer of right ankle, limited to breakdown of skin (HCC) History of tonsillectomy Hypomagnesemia PVD (peripheral vascular disease) (HCC) Old myocardial infarct Aneurysm of ascending aorta without rupture (HCC) Nonrheumatic aortic valve stenosis Ascending aorta enlargement (HCC) Current Outpatient Medications Medication Sig Dispense Refill aspirin enteric coated 81 MG TBEC Take 1 Tablet by mouth in the morning. Tyto LifeUCH DELICA LANCETS FINE MISC Check blood sugars once daily, E11.9, not using insulin, 100 Each3 Multiple Vitamin (ONE-A-DAY MENS) Tablet Take 1 Tablet by mouth in the morning. TimeFree Innovationsuch Ultra Blue In Vitro Strip (Glucose Blood) USE 1 STRIP TO CHECK GLUCOSE ONCE DAILY, dx E11.40 100 Strip 3 Allopurinol 300 MG Oral Tablet (Zyloprim) TAKE ONE TABLET BY MOUTH EVERY DAY (Patient taking differently: Take 1 Tablet by mouth every afternoon.) 90 Tablet 3 Omeprazole 20 MG Oral Capsule Delayed Release (PriLOSEC) TAKE 1 CAPSULE BY MOUTH IN THE MORNING. TAKE 1 HOUR BEFORE THE FIRST MEAL OF THE DAY. (Patient taking differently: Take 1 Capsule by mouth every other day.) 90 Capsule 2 [employer]Free Innovationsuch Ultra 2 w/Device Kit Check blood sugars once daily 1 Kit 0 Metoprolol Succinate ER 100 MG Oral Tablet Extended Release 24 Hour (toPROL XL) Take 1 Tablet by mouth in the morning and 1 Tablet before bedtime. 60 Tablet 3 Furosemide 40 MG Oral Tablet (Lasix) Take 1 Tablet by mouth in the morning. 30 Tablet 3 Acetaminophen 500 MG Oral Tablet (Tylenol) Take 1 Tablet by mouth every 6 hours as needed. Bisacodyl 10 MG Rectal Suppository (Dulcolax) Administer 1 Suppository into the rectum daily as needed for Constipation. Gabapentin 600 MG Oral Tablet (Neurontin) TAKE ONE TABLET BY MOUTH THREE TIMES A DAY 270 Tablet 1 Apixaban 5 MG Oral Tablet (Eliquis) Take 1 Tablet by mouth in the morning and 1 Tablet before bedtime. 180 Tablet 3 metFORMIN HCl ER 500 MG Oral Tablet Extended Release 24 Hour (Glucophage XR) Take 2 Tablets by mouth 2 times a day with morning and evening meals. 400 Tablet 1 Mirabegron ER 50 MG Oral Tablet Extended Release 24 Hour (Myrbetriq) TAKE 1 TABLET BY MOUTH IN THE MORNING 90 Tablet 0 HYDROcodone-Acetaminophen 10-325 MG Oral Tablet Take 1 Tablet by mouth 2 times a day as needed for Pain, Severe. 20 Tablet 0 Atorvastatin Calcium 40 MG Oral Tablet (Lipitor) TAKE ONE TABLET BY MOUTH EVERY DAY (Patient takingdifferently: every afternoon.) 100 Tablet 1 No current facility-administered medications for this visit. 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 DM type 2, goal A1c below 7 09/20/2011 Gout 10/14/2014 Hyperlipidemia Other after-cataract, not obscuring vision 04/07/2009 Paroxysmal atrial fibrillation (HCC) PVD (peripheral vascular disease) ([facility]) Recurrent falls Recurrent UTI Urinary retention Vitreous degeneration 04/01/2010 Past Surgical History: Procedure Laterality Date COLONOSCOPY W/ BIOPSY (RECTUM) 01/13/2011 polyps x2, path pending COLORECTAL CANCER SCREEN; COLON 01/07/2011 poor prep , resheduled w/ 2 day prep EGD, FLEXIBLE, W/BIOPSY 06/28/2011 esophagitis-mild inflammation noted no evidence of cancer INSERTION OF LENS PROSTHESIS Bilateral 2009 right and left, Pt states YAG OS LASERING OF SECONDARY CATARACT 02/17/2009 Yag cap OD (Gregory/Geraldine) PROSTATE LASER, COMPLETE N/A 03/11/2023 LASER ENUCLEATION OF PROSTATE performed by Bharath Monaco MD at OR [facility] REMOVAL OF TONSILS, UNDER AGE 12 approx age 11 SACROILIAC JOINT INJECT W/GUIDANCE Bilateral 05/09/2023 INJECTION SACROILIAC JOINT performed by Roberto Li DO at OR [facility] SACROILIAC JOINT INJECT W/GUIDANCE Bilateral 09/29/2023 INJECTION SACROILIAC JOINT performed by Roberto Li DO at OR [facility] Review of patient's allergies indicates: No Known Allergies Family History Problem Relation Name Age of Onset Cancer Uncle (Unspecified) Cancer Son unknown Diabetes Daughter Other (Denies family history of AAA) Other Family Status Relation Status Mo at age 93 heart Fa at age 21 Son Alive Son Alive Son Alive Gold Alive Bro Alive Bro Alive UNCLE (Not Specified) Son (Not Specified) Gold (Not Specified) Other (Not Specified) Social History Socioeconomic History Marital status: Spouse name: Pretty Number of children: 4 Years of education: 10 Highest education level: Not on file Occupational History 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 - [employer] 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: [employer] Tobacco Use Smoking status: Former Current packs/day: 0.00 Average packs/day: 1 pack/day for 37.0 years (37.0 ttl pk-yrs) Types: Cigarettes, Cigars Start date: [birth year]/31/1951 Quit date: 10/31/1989 Years since quittin.9 Passive exposure: Past Smokeless tobacco: Never Tobacco comments: Started smoking age - 17 - 18 Vaping Use Vaping status: Never Used Substance and Sexual Activity Alcohol use: No Drug use: Never Sexual activity: Yes Partners: Female Other Topics Concern Service No Blood Transfusions Not Asked Caffeine Concern Not Asked Occupational Exposure Not Asked Hobby Hazards Not Asked Sleep Concern Not Asked Stress Concern Not Asked Weight Concern Not Asked Special Diet Not Asked Back Care Not Asked Exercise Not Asked Bike Helmet Not Asked Seat Belt Yes Self-Exams Not Asked Social History Narrative , 4 children, lots of grandchildren and great grandchildren Social Needs Financial Resource Strain: Low Risk (08/07/2024) Financial Resource Strain Do you have any trouble paying for your medications, or do you think you might in the future? (Adult - for ages 18 years and over): No Does your family have trouble paying for medicine? (Household - for ages 0-17 years): Not on file Food Insecurity: Food Insecurity Present (08/07/2024) Food Insecurity Do you need food for this week? (Adult - for ages 18 years and over): Yes Are you able to get enough food for your family? (Household - for ages 0-17 years): Not on file Does your family need food this week? (Household - for ages 0-17 years): Not on file Do you always have enough food for your family? (Household - for ages 0-17 years): Not on file Transportation Needs: No Transportation Needs (08/07/2024) Transportation Needs Do you have trouble getting a ride to medical visits or work? (Adult - for ages 18 years and over):Never True Does your family have a hard time getting a ride to doctors visits? (Household - for ages 0-17 years): Not on file Has lack of transportation kept you from medical appointments, meetings, work, or from getting things needed for daily living? Check all that apply. (Adult - for ages 18 years and over): No Do you (or your family) have trouble finding or paying for a ride (transportation)? (Household - for ages 0-17 years): Not on file Social Connections: Socially Integrated (08/07/2024) Social Connections How often do you feel lonely or isolated from those around you? (Adult - for ages 18 years and over): Never Housing Stability: Low Risk (08/07/2024) Housing Stability Do you currently live in a penitentiary or have no steady place to sleep at night? (Adult - for ages 18 years and over): No Do you think you are at risk of becoming homeless? (Adult - for ages 18 years and over): No Does your family worry about paying for your home or becoming homeless? (Household - for ages 0-17 years): Not on file Are you homeless or worried that you might be in the future? (Adult - for ages 18 years and over): No Are you (or your family) homeless or worried that you might be in the future? (Household - for ages0-17 years): Not on file Review of Systems Constitutional: Positive for activity change (lt foot pain) and fatigue. Negative for appetite change, chills, diaphoresis, fever and unexpected weight change. Cardiovascular: Positive for leg swelling (mild lt foot to ankle). Negative for chest pain and palpitations. Gastrointestinal: Negative for abdominal distention and abdominal pain. Musculoskeletal: Positive for arthralgias and gait problem. Skin: Positive for color change (lt foot). Negative for wound. Neurological: Positive for numbness (tingling lt foot). Negative for dizziness, weakness and light-headedness. Psychiatric/Behavioral: Positive for sleep disturbance. Negative for agitation and behavioral problems. Objective BP 130/72 | Pulse 71 | Temp 97.7 F (36.5 C) (Infrared ) | Resp 18 | Wt 222 lb (100.7 kg) | [id number]% | BMI 31.85 kg/m | BSA 2.23 m Physical Exam Constitutional: General: He is not in acute distress. Appearance: Normal appearance. He is not ill-appearing, toxic-appearing or diaphoretic. HENT: Head: Normocephalic and atraumatic. Nose: Nose normal. Eyes: Extraocular Movements: Extraocular movements intact. Musculoskeletal: General: Swelling and tenderness (lt whole foot to ankle, purplish, red color change) present. Right lower leg: No edema. Left lower leg: No edema. Legs: Skin: Findings: No erythema. Neurological: Mental Status: He is alert and oriented to person, place, and time. Psychiatric: Behavior: Behavior normal. ASSESSMENT/PLAN: Ischemic foot (Primary) - COMPREHENSIVE METABOLIC PANEL; Future; Expected date: 10/01/2024 - CBC WITH WBC DIFFERENTIAL; Future; Expected date: 10/01/2024 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 (HCC) - ALBUMIN / CREATININE RATIO, URINE; Future; Expected date: 10/01/2024 Idiopathic chronic gout of multiple sites without tophus - URIC ACID; Future; Expected date: 10/01/2024 Type 2 diabetes mellitus with diabetic neuropathy, without long-term current use of insulin (HCC) Other orders - HYDROcodone-Acetaminophen 10-325 MG Oral Tablet; Take 1 Tablet by mouth 2 times a day as needed for Pain, Severe. Pain med until pt sees vascular But if pain gets worse or color change gets worse, should go to ER Discussed about it James Sweeney MD * Keily Gallegos LPN - 10/01/2024 2:48 PM EST Urine albumin/creatinine ratio ordered today. Provider aware. documented in this encounter Nursing Notes * Keily Gallegos LPN - 10/01/2024 2:42 PM EST Chief Complaint Patient presents with Acute Pt here today due to his left foot being red and swollen and painful documented in this encounter Plan of Treatment Upcoming Encounters Date Type Department Care Team (Late st Contact Info) Description 10/09/2024 8:30 AM EST Home Visit [facility] [address] [place] [address] Dhara Sky RN [address] [facility] [place] [address] 10/25/2024 7:00 AM EST Laboratory [facility] [phone] [address] 11/01/2024 11:40 AM EST Office Visit [facility] [address] [place] [phone] Yury Cash MD [address] [place] [phone] 11/21/2024 8:30 AM EST [facility] [place] [address] Sajan Griffith PA-C [address] [place] [address] 05/29/2025 9:45 AM EDT Office Visit [facility] [address] [facility] [place] [address] Constantino Weber DO [address] [facility] [place] [address] Scheduled Orders Name Type Priority Associated Diagnoses Orde r Schedule ALBUMIN / CREATININE RATIO, URINE Lab Routine 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 (HCC) Expected: 10/01/2024, Expires: 10/01/2025 Health Maintenance Due Date Last Done Comments [...] Not on filedocumented as of this encounter Results * URIC ACID (10/01/2024 3:22 PM EST) Uric Acid 4.5 3.4 - 7.0 mg/dL 10/02/2024 3:19 AM EST LABORATORY GM Blood Venous blood specimen / Unknown Venipuncture / Unknown 10/01/2024 3:22 PM EST 10/01/2024 3:22 PM EST us James Sweeney MD LAB BLOOD ORDERABLES Final Resul t LABORATORY [facility] [address] [place] [address] documented in this encounter Visit Diagnoses Diagnosis Paroxysmal atrial fibrillation (HCC)- Primary Atrial fibrillation Atherosclerosis of iliamna artery of both lower extremities with other clinical manifestation (HCC) Hyperlipidemia associated with type 2 diabetes mellitus (HCC) Abdominal aortic aneurysm (AAA) without rupture, unspecified part (HCC) Aneurysm of ascending aorta without rupture (HCC) Atherosclerosis of iliamna artery of both lower extremities with bilateral ulceration of other part of feet (HCC)- Primary Type 2 diabetes mellitus with diabetic neuropathy, without long-term current use of insulin (HCC) Dyslipidemia, goal LDL below 70 Other and unspecified hyperlipidemia Paroxysmal atrial fibrillation (HCC) Atrial fibrillation Advanced care planning/counseling discussion Other specified counseling Ischemic foot- Primary Unspecified circulatory system disorder 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 (HCC) 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 Yes, not currently available Care Teams [employer] Director Relationship Specialty Start Date End Date Yury Cash MD [address] [place] [phone] PCP - General Family Medicine 07/19/24 documented as of this encounter
--- OUTSIDE RECORDS SUMMARY | 2024-11-07 08:00 | External Medical Summary ---
Author Name Unknown Address Unknown Organization [id number] [address] [place] [address] Laboratory Report Ordering Provider Test Date Status SHAQ BECKER 10/01/2024 08:00:00 Final Observation Date Value Abnormality Reference (Units ) Status Hemoglobin 10/01/2024 09:08 12.3 Below low normal 13.4- 17.5 (g/dL) Final Hematocrit 10/01/2024 09:08 39.0 Below low normal 40-51 (%) Final Performing Location [facility] [address] [place] [address]
--- OUTSIDE RECORDS SUMMARY | 2024-11-07 08:00 | External Medical Summary | Summary of Care ---
Author Name Unknown Organization [facility] Address [address] [place] [address] Phone [phone] Care Team Providers Care Dry Primer Powder Blender Name Role Phone Yury Cash MD Primary Care Provi [facility] Reason for Visit * Reason Onset Date Comments Advice 10/01/2024 Encounter Details Date Type Department Care Team ([facility] st Contact Info) Description 10/01/[address] [phone] Maru White, automation software engineer Allergies No known active allergiesdocumented as of this encounter (statuses as of 10/01/2024) Medications aspirin enteric coated 81 MG TBEC [...] 9:50 AM EDT 4 11/16/19 25 Active Additional Information Patient taking differently: 300 mg Oral [id number], Reported on 09/17/2024 Omeprazole 20 MG Oral Capsule Delayed Release (PriLOSEC)Indica tions:Dysphagia TAKE 1 CAPSULE BY MOUTH IN THE MORNING. TAKE 1 HOUR BEFORE THE FIRST MEAL OF THE DAY. 90 Capsule 2 4 Active Additional Information Patient taking differently: 20 mg Oral EVERY OTHER DAY, Reported on 09/17/2024 Funbuilt 2 w/Device Kit Check blood sugars once daily 1 Kit 01/31/2024 11:32 AM EDT 4 Active Atorvastatin Calcium 40 MG Oral Tablet (Lipitor)Indicat ions:Dyslipidemi a, goal LDL below 100 TAKE ONE TABLET BY MOUTH EVERY DAY 100 Tablet 1 07/17/2024 4:51 PM EDT 4 Active Additional Information Patient taking differently: [id number], Reported on 09/17/2024 Metoprolol Succinate ER 100 [...] before bedtime. 180 Tablet 3 4 Active methylPREDNISolo ne 4 MG Oral Tablet Therapy Pack (Medrol Dosepack)Indicat ions:Gout of big toe follow package directions 21 Tablet 4 Active Metoprolol Succinate ER 50 MG Oral Tablet Extended Release 24 Hour (toPROL XL)Indications:P aroxysmal A-fib (HCC) TAKE ONE TABLET BY MOUTH EVERY DAY AT NOON 90 Tablet 3 09/18/2024 11:38 AM EST 4 09/17/20 25 Active metFORMIN HCl ER 500 MG Oral Tablet Extended Release 24 Hour (Glucophage XR)Indications:T ype 2 diabetes mellitus with diabetic neuropathy, without long-term current use of insulin (HCC) Take 2 Tablets by mouth 2 times a day with morning and evening meals. 400 Tablet 1 4 Active Mirabegron ER 50 MG Oral Tablet Extended Release 24 Hour (Myrbetriq)Indic ations:Urge incontinence TAKE 1 TABLET BY MOUTH IN THE MORNING 90 Tablet 4 Active documented as of this encounter (statuses as of 10/01/2024) Active Problems Problem Noted Date Diagnosed Date [...] to breakdown of skin 09/27/2023 Atherosclerosis of [place] co ronary artery without angina pectoris 02/09/2023 [...] EDT): Followed by vascular Unspecified atherosclerosis of [place] arteries of extremities, bilateral legs 02/15/2019 Assessment & Plan (09/23/2024 11:41 PM EST): Follows with Dr Pfeiffer vascular surgery [facility] Surgery 10/08 Plan a left [...] as of this encounter (statuses as of 10/01/2024) Resolved Problems Problem Noted Date Diagnosed Date Resolved Date Paroxysmal A-fib 08/29/2024 09/20/2024 Overview (09/20/2024): duplicate Coronary artery disease invo lving [place] coronary artery of [place] heart without angina pectoris 08/29/2024 09/20/2024 Overview [...] 10/13/2018 02/15/2019 Coronary artery disease invo lving [place] heart without angina pectoris 06/01/2018 11/10/2021 DM type 2 causing neurological disease 01/24/2018 01/14/2021 Type 2 diabetes mellitus wit h diabetic nephropathy, without long-term current use of insulin 09/08/2017 09/08/2017 Atherosclerotic heart diseas e of [place] coronary artery with unspecified angina pectoris 09/08/2017 [...] as of this encounter (statuses as of 10/01/2024) Immunizations Name Administration Dates Next Due COVID-19 mRNA, LNP-s, No Pre serve, 2-Dose Series (SnappyTV) 08/13/2021,01/22/2021,12/27/2020 Covid-19, Mrna, Lnp-s, Pf, B ivalent, 30 Mcg, IM, 12 yrs and above (SnappyTV) 11/09/2022 Pneumococcal Conjugate Vacc, 13 Valent (Prevnar) [...] 1 37 0 10/31/1951 - 10/31/1989 Cigars Smokeless Tobacco: Never Comments:Started smoking age - [...] No 08/07/2024 Does the household have a [facility] source [facility] income? 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 Patient's toe is red, swollen, and warm to touch. She states that patient has not had a fever. Acute appointment scheduled with Dr. Sweeney in [place] for today. She also states that patient has not received his metformin prescription from the mail order pharmacy. Called to [facility] mail order pharmacy and spoke with Ness. Prescription is due to be filled tomorrow. She states that she will have it sent overnight since patient is out. Reason for Call: Advice Contact: Telephone Call Contact Type: Advice Provider In-Basket: Yes Outcome: see above Face to face time spent with Patient (minutes): 0 Total Time including non face to face (minutes): 10 documented in this encounter Plan of Treatment Upcoming Encounters Date Type Department Care Team (Late st Contact Info) Description 10/01/2024 2:40 PM EST [facility] [address] [phone] James Sweeney MD [address] [address] 10/09/2024 8:30 AM EST Home Visit [facility] [address] [address] Dhara Sky RN [address] [address] 10/25/2024 7:00 AM EST Laboratory [facility] [phone] [address] 11/01/2024 11:40 AM EST Office Visit [facility] [address] [place] [phone] Yury Cash MD [address] [place] [address] 11/21/2024 8:30 AM EST Office Visit Cardiology, [facility] [address] [facility] [address] Sajan Griffith PA-C [address] [place] [address] 05/29/2025 9:45 AM EDT [facility] [address] [place] [address] Constantino Weber DO [address] [place] [address] Health Maintenance Due Date Last Done Comments Colonoscopy 01/20/2016 01/19/2011, 12/29, 01/07/2011, Additional history exists Albumin/Creatinine Ratio 05/07/[address]32 022, 04/11/2021, 05/28/2020, Additional history exists COVID-19 Vaccine ( season) 2024 11/09/2022, 08/13/2021, 01/22/2021, Additional history exists HbA1c 02/12/2025 08/14/2024, 07/01, 02/10/2024, Additional history exists B-12 05/17/2025 05/17/2024, 05/0 [...] the patient have Health Care Power of Molding Machine Setter? Yes, not currently available Care Teams Dry Primer Powder Blender Relationship Specialty Start Date End Date Yury Cash MD [address] [place] [address] [place] [phone] PCP - General Family Medicine 07/19/24 documented as of this encounter
--- OUTSIDE RECORDS SUMMARY | 2024-11-07 08:00 | External Medical Summary ---
Author Name Unknown Address Unknown Organization [id number]:[facility] [address] [place] [address] Laboratory Report Ordering Provider Test Date Status EUGENIOSHAQ 10/01/2024 08:00:00 Final Observation Date Value Abnormality Reference (Units ) Status BUN 10/01/2024 09:24 15 9-23 (mg/dL) Final Performing Location [facility] [address] [place] [address]
--- OUTSIDE RECORDS SUMMARY | 2024-11-07 08:00 | External Medical Summary | Summary of Care ---
Author Name Unknown Organization [facility] Address [address] [place] [address] Phone [phone] Care Team Providers Care Barratte Operator Name Role Phone Yury Cash MD Primary Care Provi [facility] Reason for Visit * Reason Comments Outpatient Testing Encounter Details Date Type Department Care Team (Late st Contact Info) Description 10/01/2024 3:20 PM EST Laboratory Laboratory, [facility] [address] [place] [address] [place], Laboratory [address] [place] [address] Type 2 diabetes mellitus with diabetic neuropathy, without long-term current use of insulin (HCC); Hyperlipidemia associated with type 2 diabetes mellitus (HCC); Paroxysmal atrial fibrillation (HCC); 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 (HCC); Idiopathic chronic gout of multiple sites without tophus; Ischemic foot Allergies No known active allergiesdocumented as of [...] Information Patient taking differently: 300 mg Oral [id number], Reported on 10/01/2024 Omeprazole 20 MG Oral Capsule Delayed Release (PriLOSEC)Indica tions:Dysphagia TAKE 1 CAPSULE BY MOUTH IN THE MORNING. TAKE 1 HOUR BEFORE THE FIRST MEAL OF THE DAY. 90 Capsule 2 4 Active Additional Information Patient taking differently: 20 mg Oral EVERY OTHER DAY, Reported on 10/01/2024 Xormis 2 w/Device Kit Check blood sugars once daily 1 Kit 01/31/2024 11:32 AM EDT 4 Active Atorvastatin Calcium 40 MG Oral Tablet (Lipitor)Indicat ions:Dyslipidemi a, goal LDL below 100 TAKE ONE TABLET BY MOUTH EVERY DAY 100 Tablet 1 07/17/2024 4:51 PM EDT 4 Active Additional Information Patient taking differently: [id number], Reported on 09/17/2024 Metoprolol Succinate ER 100 [...] to breakdown of skin 09/27/2023 Atherosclerosis of [place] co ronary artery without angina pectoris 02/09/2023 [...] EDT): Followed by vascular Unspecified atherosclerosis of [place] arteries of extremities, bilateral legs 02/15/2019 Assessment [...] (09/20/2024): duplicate Coronary artery disease invo lving [place] coronary artery of [place] heart without angina pectoris 08/29/2024 09/20/2024 Overview [...] 10/13/2018 02/15/2019 Coronary artery disease invo lving [place] heart without angina pectoris 06/01/2018 11/10/2021 DM type 2 causing neurological disease 01/24/2018 01/14/2021 Type 2 diabetes mellitus wit h diabetic nephropathy, without long-term current use of insulin 09/08/2017 09/08/2017 Atherosclerotic heart diseas e of [place] coronary artery with unspecified angina pectoris 09/08/2017 [...] mRNA, LNP-s, No Pre serve, 2-Dose Series (Idea[employer]) 08/13/2021,01/22/2021,12/27/2020 Covid-19, Mrna, Lnp-s, Pf, B ivalent, 30 Mcg, IM, 12 yrs and above ([email or web address][employer]) 11/09/2022 Pneumococcal Conjugate Vacc, 13 Valent (Prevnar) [...] No 08/07/2024 Does the household have a [facility] source of income? 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 Not [...] Description 10/09/2024 8:30 AM EST Home Visit [facility] [address] [address] Dhara Sky RN 132 [facility] [address] [place] [address] 10/25/2024 7:00 AM EST Laboratory Laboratory Patient Service [address] [phone] [address] 11/01/2024 11:40 AM EST Office Visit Family [address] [address] Yury Cash MD [address] [place] [phone] 11/21/2024 8:30 AM EST Office Visit Cardiology, [facility] 132 [facility] [address] [address] Sajan Griffith PA-C [facility] [place] [place] [address] 05/29/2025 9:45 AM EDT Office Visit [facility] [address] [place] [address] Constantino Weber DO [address] [place] [address] (work) Pending Results Name Type Priority Associated Diagnoses Date /Time HEMOGLOBIN A1C Lab Routine Type 2 diabetes mellitus with diabetic neuropathy, without long-term current use of insulin ([facility]) 10/01/2024 3:22 PM EST COMPREHENSIVE METABOLIC PANEL Lab Routine Type 2 diabetes mellitus with diabetic neuropathy, without long-term current use of insulin ([facility]) Hyperlipidemia associated with type 2 diabetes mellitus ([facility]) 10/01/2024 3:22 PM EST CBC WITH WBC DIFFERENTIAL Lab Routine Paroxysmal atrial fibrillation (HCC) 10/01/2024 3:22 PM EST URIC ACID Lab Routine Idiopathic chronic gout of multiple sites without tophus 10/01/2024 3:22 PM EST CBC Lab Routine Paroxysmal atrial fibrillation ([facility]) 10/01/2024 3:22 PM EST DIFFERENTIAL, AUTOMATED Lab Routine Paroxysmal atrial fibrillation ([facility]) 10/01/2024 3:22 PM EST Health Maintenance Due Date Last [...] fibrillation (HCC)- Primary Atrial fibrillation Atherosclerosis of [place] artery of both lower extremities with other clinical manifestation (HCC) Hyperlipidemia associated with type 2 diabetes mellitus (HCC) Abdominal aortic aneurysm (AAA) without rupture, unspecified part (HCC) Aneurysm of ascending aorta without rupture (HCC) 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 (HCC)- Primary Type 2 diabetes mellitus with diabetic neuropathy, without long-term current use of insulin (HCC) Dyslipidemia, goal LDL below 70 Other and unspecified hyperlipidemia Paroxysmal atrial fibrillation (HCC) Atrial fibrillation Advanced care planning/counseling discussion Other specified counseling Type 2 diabetes mellitus with diabetic neuropathy, without long-term current use of insulin (HCC) Hyperlipidemia associated with type 2 diabetes mellitus (HCC) Paroxysmal atrial fibrillation (HCC) Atrial fibrillation 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 (HCC) Idiopathic chronic gout of multiple sites without tophus Chronic gouty arthropathy without mention of tophus (tophi) Ischemic foot Unspecified circulatory system disorder documented in this encounter Advance Directives * [...] the patient have Health Care Power of Water Resources Program Director? Yes, not currently available Care Teams Barratte Operator Relationship Specialty Start Date End Date Yury Cash MD [address] [place] [phone] PCP - General Family Medicine 07/19/24 documented as of this encounter
--- OUTSIDE RECORDS SUMMARY | 2024-11-07 08:00 | External Medical Summary ---
Author Name Unknown Address Unknown Organization [id number]:[facility] [address] [place] [address] Laboratory Report Ordering Provider Test Date Status SHAQ BECKER 10/08/2024 05:58:00 Final Observation Date Value Abnormality Reference (Units ) Status Hemoglobin A1C 10/08/2024 08:28 8.2 Above high normal <5.7 (%) Final [place] [employer] n Guidelines: Decreased risk or non-diabetic: <5.7% Increased risk of diabetes: 5.7-6.4% Consistent with diabetes: >=6.5% General goal for treated diabetics: <7.0% Performing Location [facility] [address] [place] [address]
--- OUTSIDE RECORDS SUMMARY | 2024-11-07 08:00 | External Medical Summary ---
Author Name Unknown Address Unknown Organization K01:LABORATORY [facility] [place] - [address] [facility] [address] [facility] [address] Laboratory Report Ordering Provider Test Date Status IGNACIO AZAR 10/01/2024 15:22:33 Final Observation Date Value Abnormality Reference (Units ) Status WBC, Total 10/01/2024 15:22:33 10.15 4.00-10.80 (K/uL) Final RBC 10/01/2024 15:22:33 4.64 4.50-5.25 (M/uL) Final Hemoglobin 10/01/2024 15:22:33 12.1 Below low normal 14.0-16.8 (g/dL) Final HCT 10/01/2024 15:22:33 40.0 40.0-48.4 (%) Final MCV 10/01/2024 15:22:33 86.2 82.0-99.5 (fL) Final MCH 10/01/2024 15:22:33 26.1 27.0-34.0 (pg) Final MCHC 10/01/2024 15:22:33 30.3 32.0-36.0 (g/dL) Final RDW 10/01/2024 15:22:33 17.3 11.5-15.5 (%) Final Platelets 10/01/2024 15:22:33 158 140-400 (K/uL) Final MPV 10/01/2024 15:22:33 12.9 6.6-11.1 (fL) Final Nucleated erythrocytes/100 leukocytes [Ratio] in Blood by Automated count 10/01/2024 15:22:33 0 <=0 (/100 WBCs) Final Performing Location LABORATORY [facility] [place] - [address] [place] [address]
--- OUTSIDE RECORDS SUMMARY | 2024-11-07 08:00 | External Medical Summary ---
Author Name Unknown Address Unknown Organization K01:[facility] [place] - [address] [facility] [address] [place] [address] Laboratory Report Ordering Provider Test Date Status DOEJACOBO 10/01/2024 15:22:33 Final Observation Date Value Abnormality Reference (Units ) Status HbA1C 10/01/2024 15:22:33 8.3 Above high normal 4. 0-5.6 (%) Final The use of HbA1c to monitor glycemic status is based on normal hemoglobin and HbA composition. This test should not be used in patients with abnormal hemoglobin that affects the half life of the red blood cell or the in vivo glycation rates. Glucose, estimated average 10/01/2024 15:22:33 192 Above high normal <126 (mg/dL) Jc abreu Performing Location LAB[facility]ORY [facility] - [address] [facility] [place] [address]
--- OUTSIDE RECORDS SUMMARY | 2024-11-07 08:00 | External Medical Summary | Summary of Care ---
Author Name Unknown Organization [facility] Address [address] [place] [address] Phone [phone] Care Team Providers Care [employer] Assistant Manager Name Role Phone Yury Cash MD Primary Care [facility]vi [facility] Reason for Visit * Reason Comments eRx-Medication Refill Encounter Details Date Type Department Care Team (Late st Contact Info) Description 09/20/2024 Refill Urology, [place] [address] [place], [place] [phone] Marisol Monaco MD [address] [place], [place] [phone] Urge incontinence* Allergies No known active allergiesdocumented as of this encounter (statuses as of 09/26/2024) Medications aspirin enteric coated 81 MG TBEC [...] 3 4 9:50 AM EDT 11/17/19 24 11/16/ 025 Active Additional Information Patient taking differently: 300 mg Oral [id number], Reported on 09/17/2024 Omeprazole 20 MG Oral Capsule Delayed Release (PriLOSEC)Indic ations:Dysphagi a TAKE 1 CAPSULE BY MOUTH IN THE MORNING. TAKE 1 HOUR BEFORE THE FIRST MEAL OF THE DAY. 90 Capsule 2 11/17/19 24 Active Additional Information Patient taking differently: 20 mg Oral EVERY OTHER DAY, Reported on 09/17/2024 SalesPortal 2 w/Device Kit Check blood sugars once daily 1 Kit 4 11:32 AM EDT 01/31/20 24 Active Atorvastatin Calcium 40 MG Oral Tablet (Lipitor)Indica tions:Dyslipide michell, goal LDL below 100 TAKE ONE TABLET BY MOUTH EVERY DAY 100 Tablet 1 4 4:51 PM EDT 07/16/20 24 Active Additional Information Patient taking differently: [id number], Reported on 09/17/2024 Metoprolol Succinate ER 100 [...] Constipation. Active Gabapentin 600 MG Oral Tablet (Neurontin)Charlene [...] bedtime. 180 Tablet 3 08/14/20 24 Active methylPREDNISol one 4 MG Oral Tablet Therapy Pack (Medrol Dosepack)Indica tions:Gout of big toe follow package directions 21 Tablet 09/17/20 24 Active Metoprolol Succinate ER 50 MG Oral Tablet Extended Release 24 Hour (toPROL XL)Indications: Paroxysmal A-fib (HCC) TAKE ONE TABLET BY MOUTH EVERY DAY AT NOON 90 Tablet 3 4 11:38 AM EST 09/17/20 24 025 Active metFORMIN HCl ER 500 MG Oral Tablet Extended Release 24 Hour (Glucophage XR)Indications: Type 2 diabetes mellitus with diabetic neuropathy, without long-term current use of insulin (HCC) Take 2 Tablets by mouth 2 times a day with morning and evening meals. 400 Tablet 1 09/17/20 24 Active Mirabegron ER 50 MG Oral Tablet Extended Release 24 Hour (Myrbetriq)Charlene cations:Urge incontinence TAKE 1 TABLET BY MOUTH IN THE MORNING 90 Tablet 09/26/20 24 Active Myrbetriq 50 MG Oral Tablet Extended Release 24 Hour Take 1 Tablet by mouth in the morning. In the morning.. 11/19/19 24 024 Discontinued documented as of this encounter (statuses as of 09/26/2024) Active Problems Problem Noted Date Diagnosed Date [...] to breakdown of skin 09/27/2023 Atherosclerosis of [place] co ronary artery without angina pectoris 02/09/2023 [...] EDT): Followed by vascular Unspecified atherosclerosis of [place] arteries of extremities, bilateral legs 02/15/2019 Assessment [...] as of this encounter (statuses as of 09/26/2024) Resolved Problems Problem Noted Date Diagnosed Date Resolved Date Paroxysmal A-fib 08/29/2024 09/20/2024 Overview (09/20/2024): duplicate Coronary artery disease invo lving [place] coronary artery of [place] heart without angina pectoris 08/29/2024 09/20/2024 Overview [...] 10/13/2018 02/15/2019 Coronary artery disease invo lving [place] heart without angina pectoris 06/01/2018 11/10/2021 DM type 2 causing neurological disease 01/24/2018 01/14/2021 Type 2 diabetes mellitus wit h diabetic nephropathy, without long-term current use of insulin 09/08/2017 09/08/2017 Atherosclerotic heart diseas e of [place] coronary artery with unspecified angina pectoris 09/08/2017 [...] as of this encounter (statuses as of 09/26/2024) Immunizations Name Administration Dates Next Due COVID-19 mRNA, LNP-s, No Pre serve, 2-Dose Series (Qwiqq) 08/13/2021,01/22/2021,12/27/2020 Covid-19, Mrna, Lnp-s, Pf, B ivalent, 30 Mcg, IM, 12 yrs and above (Qwiqq) 11/09/2022 Pneumococcal Conjugate Vacc, 13 Valent (Prevnar) [...] No 08/07/2024 Does the household have a [facility] source [facility]? 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 Not [...] encounter Miscellaneous Notes * Telephone Encounter - Marisol Monaco MD - 09/26/2024 11:57 AM ESTSigned Prescriptions: Disp Refills Mirabegron ER 50 MG Oral Tablet Extended R*90 Tab*0 Sig: TAKE 1 TABLET BY MOUTH IN THE MORNING Authorizing Provider: MARISOL MONACO * Telephone Encounter - Aspen Summers RN - 09/24/2024 10:05 AM ESTPending Prescriptions: Disp Refills Mirabegron ER 50 MG Oral Tablet Extended R*90 Tab*0 Sig: TAKE 1TABLET BY MOUTH IN THE MORNING documented in this encounter Plan of Treatment Upcoming Encounters Date Type Department Care Team (Late st Contact Info) Description 10/09/2024 8:30 AM EST Home Visit [facility] [place] [address] [place] [address] Dhara Sky, RN [address] [facility] [place] [address] 10/25/2024 7:00 AM EST Laboratory Laboratory [facility] Center[address] [address] [address] 11/01/2024 11:40 AM EST Office [facility] [address] [place] [address] Yury Cash MD [address] [place] [address] 11/21/2024 8:30 AM EST Office Visit Cardiology, [facility] 132 [place] [address] Sajan Griffith PAOnofreC [address] [place] [address] 05/29/2025 9:45 AM EDT Office Visit [facility] [address] [place] [address] Constantnio Weber DO [address] [place], [place] [phone] Health Maintenance Due Date Last Done Comments Colonoscopy 01/20/2016 01/19/2011, 12/29, 01/07/2011, Additional history exists Albumin/Creatinine Ratio 05/07/2023 022, 04/11/2021, 05/28/2020, Additional history exists COVID-19 Vaccine ( season) 2024 11/09/2022, 08/13/2021, 01/22/2021, Additional history exists HbA1c 02/12/2025 08/14/2024, 07/01, 02/10/2024, Additional history exists B-12 05/17/2025 05/17/2024, 0505/2024, [...] fibrillation (HCC)- Primary Atrial fibrillation Atherosclerosis of [place] artery of both lower extremities with other clinical manifestation (HCC) Hyperlipidemia associated with type 2 diabetes mellitus (HCC) Abdominal aortic aneurysm (AAA) without rupture, unspecified part (HCC) Aneurysm of ascending aorta without rupture (HCC) 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 Yes, not currently available Care Teams [employer] Assistant Manager Relationship Specialty Start Date End Date Yury Cash MD [address] [place] [phone] PCP - General Family Medicine 07/19/24 documented as of this encounter
--- OUTSIDE RECORDS SUMMARY | 2024-11-07 08:00 | External Medical Summary ---
Author Name Unknown Address Unknown Organization R1WR:[facility] [address] [place] [address] Laboratory Report Ordering Provider Test Date Status SHAQ BECKER 10/01/2024 08:00:00 Final Observation Date Value Abnormality Reference (Units ) Status Sodium 10/01/2024 09:24 140 136-145 (mmol /L) Final Potassium 10/01/2024 09:24 4.0 3.4-5.0 (mmol /L) Final Performing Location [facility] [address] [place] [address]
--- OUTSIDE RECORDS SUMMARY | 2024-11-07 08:00 | External Medical Summary ---
Author Name Unknown Address Unknown Organization K01:[facility] [place] - [address] [place] [address] Laboratory Report Ordering Provider Test Date Status BRIAN RICCI 10/01/2024 15:22:33 Final Observation Date Value Abnormality Reference (Units ) Status Uric Acid 10/01/2024 15:22:33 4.5 3.4-7.0 (m g/dL) Final Performing Location LABORATORY [facility] - [address] [place] [address]
--- OUTSIDE RECORDS SUMMARY | 2024-11-07 08:00 | External Medical Summary ---
Author Name Unknown Address Unknown Organization K01:[facility] [place] [address] [facility] [place] [address] Laboratory Report Ordering Provider Test Date Status IGNACIO AZAR 10/01/2024 15:22:33 Final Observation Date Value Abnormality Reference (Units ) Status BUN 10/01/2024 15:22:33 15 6-20 (mg/dL) Final Creatinine 10/01/2024 15:22:33 1.0 0.6-1.2 (mg/dL) Final Glomerular filtration rate/1.73 sq M.predicted [Volume Rate/Area] in Serum, Plasma or Blood by Creatinine-based formula (CKD-EPI) 10/01/2024 15:22:33 77 >=60 (mL/min) Final eGFR is calculated based on the CKD-EPI 2020 equation. Sodium 10/01/2024 15:22:33 142 135-146 (m mol/L) Final Potassium 10/01/2024 15:22:33 4.2 3.5-5.1 (m mol/L) Final Cl 10/01/2024 15:22:33 99 98-107 (mm ol/L) Final CO2 10/01/2024 15:22:33 29 22-32 (mmo l/L) Final Anion gap 10/01/2024 15:22:33 14 7-15 (mmol /L) Final Glucose 10/01/2024 15:22:33 165 Above high normal 70 -120 (mg/dL) Final Albumin 10/01/2024 15:22:33 4.6 3.8-5.0 (g /dL) Final AST (Aspartate aminotransferase) 10/01/2024 15:22:33 38 10-50 (U/L) Fin al Alk Phos 10/01/2024 15:22:33 103 35-130 (U/ L) Final Bilirubin, Total 10/01/2024 15:22:33 0.3 <=1 .2 (mg/dL) Final Calcium 10/01/2024 15:22:33 9.7 8.4-10.2 ( mg/dL) Final Protein 10/01/2024 15:22:33 7.1 6.0-8.3 (g /dL) Final ALT (Alanine aminotransferase) 10/01/2024 15:22:33 48 10-50 (U/L) Jc abreu Performing Location [facility] [place] [facility] [address] [facility] [address]
--- OUTSIDE RECORDS SUMMARY | 2024-11-07 08:00 | External Medical Summary ---
Author Name Unknown Address Unknown Organization R1WR:[facility] [address] [place] [address] Laboratory Report Ordering Provider Test Date Status SHAQ BECKER 10/01/2024 08:00:00 Final Observation Date Value Abnormality Reference (Units ) Status Platelets 10/01/2024 09:08 153 150-330 (X10E +09/L) Final Performing Location [facility] [address] [place] [address]
[2024-11-07] MEDS: PIPERACILLIN/TAZOBACTAM 4.5 GM/100 ML BAG IV SCH (08:01)
[2024-11-07] MEDS: PANTOprazole 40 MG TAB PO SCH (08:01)
[2024-11-07] MEDS: GABAPENTIN 600 MG TAB PO SCH (08:01)
--- OUTSIDE RECORDS SUMMARY | 2024-11-07 08:01 | External Medical Summary | Summary of Care ---
Author Name Unknown Organization [facility] Address [address] [place] [address] Phone [phone] Care Team Providers Care Record Producer Name Role Phone Yury Cash MD [facility] Reason for Visit * Reason Comments Medication Refill Encounter Details Date Type Department Care Team ([facility] Contact Info) Description 09/17/2024 Refill Family [address] [phone] Yury Cash MD [address] [place] [phone] Paroxysmal A-fib ([facility]); Type 2 diabetes mellitus with diabetic neuropathy, without long-term current use of insulin ([facility]) Allergies No known active allergiesdocumented as of this encounter (statuses as of 09/17/2024) Medications aspirin enteric coated 81 MG TBEC [...] Information Patient taking differently: 300 mg Oral [id number], Reported on 09/17/2024 Omeprazole 20 MG Oral Capsule Delayed Release (PriLOSEC)Indica tions:Dysphagia TAKE 1 CAPSULE BY MOUTH IN THE MORNING. TAKE 1 HOUR BEFORE THE FIRST MEAL OF THE DAY. 90 Capsule 2 11/17/19 24 Active Additional Information Patient taking differently: 20 mg Oral EVERY OTHER DAY, Reported on 09/17/2024 Myrbetriq 50 MG Oral Tablet Extended Release 24 Hour Take 1 Tablet by mouth in the morning. In the morning.. 11/19/19 24 Active Hy-Drive 2 w/Device Kit Check blood sugars once daily 1 Kit 01/31/2024 11:32 AM EDT 01/31/20 24 Active Atorvastatin Calcium 40 MG Oral Tablet (Lipitor)Indicat ions:Dyslipidemi a, goal LDL below 100 TAKE ONE TABLET BY MOUTH EVERY DAY 100 Tablet 1 07/17/2024 4:51 PM EDT 07/16/20 24 Active Additional Information Patient taking differently: [id number], Reported on 09/17/2024 Metoprolol Succinate ER 100 [...] bedtime. 180 Tablet 3 08/14/20 24 Active methylPREDNISolo ne 4 MG Oral Tablet Therapy Pack (Medrol Dosepack)Indicat ions:Gout of big toe follow package directions 21 Tablet 09/17/20 24 Active Metoprolol Succinate ER 50 MG Oral Tablet Extended Release 24 Hour (toPROL XL)Indications:P aroxysmal A-fib (HCC) TAKE ONE TABLET BY MOUTH EVERY DAY AT NOON 90 Tablet 3 09/17/20 24 025 Active metFORMIN HCl ER 500 MG Oral Tablet Extended Release 24 Hour (Glucophage XR)Indications:T ype 2 diabetes mellitus with diabetic neuropathy, without long-term current use of insulin ([facility]) Take 2 Tablets by mouth 2 times a day with morning and evening meals. 400 Tablet 1 09/17/20 24 Active metFORMIN HCl ER 500 MG Oral Tablet Extended Release 24 Hour (Glucophage XR)Indications:T ype 2 diabetes mellitus with diabetic neuropathy, without long-term current use of insulin ([facility]) Take 2 Tablets by mouth 2 times a day with morning and evening meals. 400 Tablet 1 07/09/2024 12:05 PM EDT 01/10/20 24 024 Discontin ued(Refil l) documented as of this encounter (statuses as of 09/17/2024) Active Problems Problem Noted Date Diagnosed Date Paroxysmal A-fib 08/29/2024 Coronary artery disease invo lving [place] coronary artery of [place] heart without angina pectoris 08/29/2024 Nonrheumatic aortic valve stenosis 08/29/2024 Ascending aorta enlargement 08/29/2024 Aneurysm of ascending aorta without rupture 07/31 Assessment & Plan (08/17/2024 11:54 AM EDT): Enlarged aortic root, 5 cm ascending aortic aneurysm via December 20, [address]-discussed with Cardiology and plan to manage conservatively. Type 2 myocardial infarction 07/30/2024 History of tonsillectomy 12/22/2023 Hypomagnesemia 12/22/2023 Skin ulcer of right ankle, limited to breakdown of skin 09/27/2023 Atherosclerosis of [place] co ronary artery without angina pectoris 02/09/2023 [...] EDT): Followed by vascular Unspecified atherosclerosis of [place] arteries of extremities, bilateral legs 02/15/2019 Assessment & Plan (08/17/2024 11:53 AM EDT): He reports he saw vascular yesterday and plans for surgical procedure/angioplasty to the affected extremity. 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 10/14/2014 Hx of nonmelanoma skin cancer 08/21/2012 Overview (08/21/2012): L posterior shoulder BCC 12/2011 History of malignant melanoma of skin 08/16/2011 Overview (08/16/2011): Back - , no SLN, unknown depth Dyslipidemia, goal LDL below 70 09/11/2010 After cataract not obscuring vision 04/07/2009 Overview (08/23/2017): ICD-10 update of inactive term documented as of this encounter (statuses as of 09/17/2024) Resolved Problems Problem Noted Date Diagnosed Date Resolved Date Atrial fibrillation with RVR 07/30/2024 08/08/2024 Cellulitis [...] 10/13/2018 02/15/2019 Coronary artery disease invo lving [place] heart without angina pectoris 06/01/2018 11/10/2021 DM type 2 causing neurological disease 01/24/2018 01/14/2021 Type 2 diabetes mellitus wit h diabetic nephropathy, without long-term current use of insulin 09/08/2017 09/08/2017 Atherosclerotic heart diseas e of [place] coronary artery with unspecified angina pectoris 09/08/2017 [...] as of this encounter (statuses as of 09/17/2024) Immunizations Name Administration Dates Next Due COVID-19 mRNA, LNP-s, No Pre serve, 2-Dose Series ([employer]) 08/13/2021,01/22/2021,12/27/2020 Covid-19, Mrna, Lnp-s, Pf, B ivalent, [...] 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 Not [...] encounter Miscellaneous Notes * Telephone Encounter - Yury Cash MD - 09/17/2024 2:56 PM EST Signed Prescriptions: Disp Refills Metoprolol Succinate ER 50 MG Oral Tablet *90 Tab*3 Sig: TAKE ONE TABLET BY MOUTH EVERY DAY AT NOONAuthorizing Provider: YURY CASH metFORMIN HCl ER 500 MG Oral Tablet Extend*400 Ta*1 Sig: Take 2 Tablets by mouth 2 times a day with morning and evening meals.Authorizing Provider: YURY CASH documented in this encounter Plan of Treatment Upcoming Encounters Date Type Department Care Team (Late st Contact Info) Description 09/20/2024 11:00 AM EST Home Visit [facility] [place], [address] [place] [address] Duane Masterson [facility]-C [facility] [place] [address] 09/25/2024 8:20 AM EST Office Visit [address] [phone] Itzel Sloan PA-C [address] [place] [address] 10/09/2024 8:30 AM EST [facility] Visit [facility] [place] [address] Dhara Sky RN [address] [place] [address] 10/25/2024 7:00 AM EST Laboratory [facility] Center[address] [phone] [address] 11/01/2024 11:40 AM EST Office Visit [address] [phone] Yury Cash MD [address] [place] [phone] 11/21/2024 8:30 AM EST Office Visit Cardiology, [facility] [place] [address] Sajan Griffith PA-C [address] [facility] [place] [address] 05/29/2025 9:45 AM EDT Office Visit [address] [address] Constantino Weber DO 16 [place] [address] Health Maintenance Due Date Last Done Comments Colonoscopy 01/20/2016 01/19/2011, 12/29, 01/07/2011, Additional history exists Albumin/Creatinine Ratio 05/07/2023 022, 04/11/2021, 05/28/2020, Additional history exists COVID-19 Vaccine ( season) 2024 11/09/2022, 08/13/2021, 01/22/2021, Additional history exists HbA1c 02/12/2025 08/14/2024, 07/01, 02/10/2024, Additional history exists B-12 05/17/2025 05/17/2024, 05/05/2024, [...] fibrillation (HCC)- Primary Atrial fibrillation Atherosclerosis of [place] artery of both lower extremities with other clinical manifestation (HCC) Hyperlipidemia associated with type 2 diabetes mellitus (HCC) Abdominal aortic aneurysm (AAA) without rupture, unspecified part (HCC) Aneurysm of ascending aorta without rupture (HCC) Paroxysmal A-fib (HCC) Atrial fibrillation Type 2 [...] the patient have Health Care Power of Medical Record Retrieval Specialist? Yes, not currently available Care Teams Record Producer Relationship Specialty Start Date End Date Yury Cash MD [address] [place] [phone] PCP - General Family Medicine 07/19/24 documented as of this encounter
--- OUTSIDE RECORDS SUMMARY | 2024-11-07 08:01 | External Medical Summary | Summary of Care ---
Author Name Unknown Organization [facility] Address [address] [place] [address] Phone [phone] Care Team Providers Care Equity Director Name Role Phone Yury Cash MD Primary Care [facility] Reason for Visit * Reason Onset Date Comments Medication Refill 09/24/2024 Encounter Details Date Type Department Care Team ([facility] Contact Info) Description 09/24/[address] [phone] Maru White, server manager Refill Allergies No known active allergiesdocumented as of this encounter (statuses as of 09/25/2024) Medications aspirin enteric coated 81 MG TBEC [...] Information Patient taking differently: 300 mg Oral [id number], Reported on 09/17/2024 Omeprazole 20 MG Oral [...] mouth in the morning. In the morning.. 4 Active MEDArchon 2 w/Device Kit Check blood sugars once daily 1 Kit 01/31/2024 11:32 AM EDT 4 Active Atorvastatin Calcium 40 MG Oral Tablet (Lipitor)Indicat ions:Dyslipidemi a, goal LDL below 100 TAKE ONE TABLET BY MOUTH EVERY DAY 100 Tablet 1 07/17/2024 4:51 PM EDT 4 Active Additional Information Patient taking differently: [id number], Reported on 09/17/2024 Metoprolol Succinate ER 100 [...] evening meals. 400 Tablet 1 4 Active documented as of this encounter (statuses as of 09/25/2024) Active Problems Problem Noted Date Diagnosed Date [...] to breakdown of skin 09/27/2023 Atherosclerosis of [place] co ronary artery without angina pectoris 02/09/2023 [...] EDT): Followed by vascular Unspecified atherosclerosis of [place] arteries of extremities, bilateral legs 02/15/2019 Assessment & Plan (09/23/2024 11:41 PM EST): Follows with Dr Pfeiffer vascular surgery [facility] Surgery 10/08 Plan a left popliteal [...] as of this encounter (statuses as of 09/25/2024) Resolved Problems Problem Noted Date Diagnosed Date Resolved Date Paroxysmal A-fib 08/29/2024 09/20/2024 Overview (09/20/2024): duplicate Coronary artery disease invo lving [place] coronary artery of [place] heart without angina pectoris 08/29/2024 09/20/2024 Overview [...] 10/13/2018 02/15/2019 Coronary artery disease invo lving [place] heart without angina pectoris 06/01/2018 11/10/2021 DM type 2 causing neurological disease 01/24/2018 01/14/2021 Type 2 diabetes mellitus wit h diabetic nephropathy, without long-term current use of insulin 09/08/2017 09/08/2017 Atherosclerotic heart diseas e of [place] coronary artery with unspecified angina pectoris 09/08/2017 [...] as of this encounter (statuses as of 09/25/2024) Immunizations Name Administration Dates Next Due COVID-19 mRNA, LNP-s, No Pre serve, 2-Dose Series ([employer]) 08/13/2021,01/22/2021,12/27/2020 Covid-19, Mrna, Lnp-s, Pf, B ivalent, 30 Mcg, IM, 12 yrs and above ([employer]) 11/09/2022 Pneumococcal Conjugate Vacc, 13 Valent (Prevnar) [...] 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 Not on [...] Telephone Encounter - Yury Cash MD - 09/25/2024 9:56 AM EST Refused Prescriptions: Disp Refills metFORMIN HCl ER 500 MG Oral Tablet Extend*400 Ta*1 Sig: Take 2 Tablets by mouth 2 times a day with morning and evening meals.Refused By: MCKINLEY ADAMS for Refusal: Request already responded to by other means Metoprolol Succinate ER 100 MGOral Tablet*60 Tab*3 Sig: Take 1 Tablet by mouth in the morning and 1 Tablet before bedtime.Refused By: MCKINLEY ADAMS for Refusal: Request already responded to by other means * Telephone Encounter - Yury Cash MD - 09/25/2024 9:56 AM EST It appears that the medications were sent in on 09/17/2024 to the mail-in pharmacy * Telephone Encounter - Maru White RN - 09/24/2024 1:34 PM EST Provider to address: Patient's spouse called in regarding medications. She states that patient is out of metformin. She states that she had previously requested a refill of this medication to be sentto the [facility] mail order pharmacy. Patient has not received the medication. She also states thatpatient was recently switched to metoprolol 100mg and she [facility] also [facility] Prescriptions pended and sent to [place] [facility] provider pool as PCP is currently out of the office. Reason for Call: No chief complaint on file. Contact: Telephone Call Contact Type: Medication Provider In-Basket: Yes Outcome: see above Face to face time spent with Patient (minutes): 0 Total Time including non face to face (minutes): 10 documented in this encounter Plan of Treatment Upcoming Encounters Date Type Department Care Team ([facility] st Contact Info) Description 10/09/2024 8:30 AM EST Home Visit [facility] [address] [place] [address] Dhara Sky RN 132 [facility] [place] [address] 10/25/2024 7:00 AM EST Laboratory [facility] Center[address] [phone] [address] 11/01/2024 11:40 AM EST Office Visit [address] [phone] Yury Cash MD [address] [place] [phone] 11/21/2024 8:30 AM EST Office Visit Cardiology, [facility] [address] [place] [address] Sajan Griffith PA-C 132 [facility] [place] [address] 05/29/2025 9:45 AM EDT Office Visit [address] [address] Constantino Weber DO 16 [place] [address] Health Maintenance Due Date Last Done Comments [...] fibrillation (HCC)- Primary Atrial fibrillation Atherosclerosis of [place] artery of both lower extremities with other clinical manifestation (HCC) Hyperlipidemia associated with type 2 diabetes mellitus (HCC) Abdominal aortic aneurysm (AAA) without rupture, unspecified part (HCC) Aneurysm of ascending aorta without rupture (HCC) Atherosclerosis of [place] artery of both lower extremities with bilateral [...] without long-term current use of insulin (HCC) Paroxysmal A-fib (HCC) Atrial fibrillation documented in this encounter Advance Directives * [...] the patient have Health Care Power of Cable Ferryboat Operator? Yes, not currently available Care Teams Equity Director Relationship Specialty Start Date End Date Yury Cash MD [address] [place] [phone] PCP - General Family Medicine 07/19/24 documented as of this encounter
--- OUTSIDE RECORDS SUMMARY | 2024-11-07 08:01 | External Medical Summary | Summary of Care ---
Author Name Unknown Organization [facility] Address [address] [place] [address] Phone [phone] Care Team Providers Care Php Web Developer Name Role Phone Yury Cash MD Primary Care [facility] Reason for Visit * Reason Onset Date Comments Medication Refill 09/24/2024 Encounter Details Date Type Department Care Team ([facility] Contact Info) Description 09/24/[address] [phone] Maru White, rn oncology clinical Refill Allergies No known active allergiesdocumented as [...] Information Patient taking differently: 300 mg Oral [id number], Reported on 09/17/2024 Omeprazole 20 MG Oral [...] the morning. In the morning.. 4 Active OpVista 2 w/Device Kit Check blood sugars once daily 1 Kit 01/31/2024 11:32 AM EDT 4 Active Atorvastatin Calcium 40 MG Oral Tablet (Lipitor)Indicat ions:Dyslipidemi a, goal LDL below 100 TAKE ONE TABLET BY MOUTH EVERY DAY 100 Tablet 1 07/17/2024 4:51 PM EDT 4 Active Additional Information Patient taking differently: [id number], Reported on 09/17/2024 Metoprolol Succinate ER 100 [...] to breakdown of skin 09/27/2023 Atherosclerosis of [place] co ronary artery without angina pectoris [...] EDT): Followed by vascular Unspecified atherosclerosis of [place] arteries of extremities, bilateral legs 02/15/2019 [...] (09/20/2024): duplicate Coronary artery disease invo lving [place] coronary artery of [place] heart without angina pectoris 08/29/2024 09/20/2024 [...] 10/13/2018 02/15/2019 Coronary artery disease invo lving [place] heart without angina pectoris 06/01/2018 11/10/2021 DM type 2 causing neurological disease 01/24/2018 01/14/2021 Type 2 diabetes mellitus wit h diabetic nephropathy, without long-term current use of insulin 09/08/2017 09/08/2017 Atherosclerotic heart diseas e of [place] coronary artery with unspecified angina pectoris [...] mRNA, LNP-s, No Pre serve, 2-Dose Series ([employer]) 08/13/2021,01/22/2021,12/27/2020 Covid-19, Mrna, Lnp-s, Pf, B ivalent, 30 Mcg, IM, 12 yrs and above ([employer]) 11/09/2022 Pneumococcal Conjugate Vacc, 13 Valent (Prevnar) [...] 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 Patient has not received the medication. She also states thatpatient was recently switched to metoprolol 100mg and she would also like this prescription sent tothe [facility] mail in pharmacy. Prescriptions pended and sent to [facility] provider [place] as PCP is currently out of the [...] Description 10/09/2024 8:30 AM EST [facility] [place] [address] Dhara Sky, RN 132 [facility] [place] [address] 10/25/2024 7:00 AM EST Laboratory Laboratory Patient Service [address] [phone] [address] [address] 11/01/2024 11:40 AM EST Office Visit [facility] [address] [facility] [place] [phone] Yury Cash MD [facility] [place] [phone] 11/21/2024 8:30 AM EST Office Visit Cardiology, [facility] [address] [place] [address] Sajan Griffith PA-C [address] [place] [address] 05/29/2025 9:45 AM EDT Office Visit [facility] [address] [place] [address] Constantino Weber DO 16 [place] [address] Health Maintenance Due Date Last Done Comments [...] fibrillation (HCC)- Primary Atrial fibrillation Atherosclerosis of [place] artery of both lower extremities with other clinical manifestation (HCC) Hyperlipidemia associated with type 2 diabetes mellitus (HCC) Abdominal aortic aneurysm (AAA) without rupture, unspecified part (HCC) Aneurysm of ascending aorta without rupture (HCC) Atherosclerosis of [place] artery of both lower extremities with [...] the patient have Health Care Power of Tube Room Cashier? Yes, not currently available Care Teams Php Web Developer Relationship Specialty Start Date End Date Yury Cash MD [address] [place] [phone] PCP - General Family Medicine 07/19/24 documented as of this encounter
--- OUTSIDE RECORDS SUMMARY | 2024-11-07 08:01 | External Medical Summary | Summary of Care ---
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 In the morning.. 11/19/19 24 Active Access Scientific 2 w/Device Kit Check blood sugars once daily 1 Kit 4 11:32 AM EDT 01/31/20 24 Active Atorvastatin Calcium 40 MG Oral Tablet (Lipitor)Indica tions:Dyslipide michell, goal LDL below 100 TAKE ONE TABLET BY MOUTH EVERY DAY 100 Tablet 1 4 4:51 PM EDT 07/16/20 24 Active Additional Information Patient taking differently: [id number], Reported on 09/17/2024 Metoprolol Succinate ER 100 [...] Tablet before bedtime. 180 Tablet 3 08/14/20 Active methylPREDNISol one 4 MG Oral Tablet [...] and evening meals. 400 Tablet 1 09/17/20 Active Doxycycline Hyclate 100 MG Oral Capsule Take 1 Capsule by mouth in the morning and 1 Capsule before bedtime. Do all this for 12 days. 24 Capsule 08/06/20 24 024 Discontinued Cephalexin 500 MG Oral Capsule (Keflex) Take 1 Capsule by mouth in the morning and 1 Capsule at noon and 1 Capsule in the evening and 1 Capsule before bedtime. Do all this for 10 days. 40 Capsule 08/06/20 24 024 Discontinued documented as of this encounter (statuses as of 09/23/2024) Active Problems Problem Noted Date Diagnosed Date [...] to breakdown of skin 09/27/2023 Atherosclerosis of [place] co ronary artery without angina pectoris 02/09/2023 [...] EDT): Followed by vascular Unspecified atherosclerosis of [place] arteries of extremities, bilateral legs 02/15/2019 Assessment & Plan (09/23/2024 11:41 PM EST): Follows with Dr Shabazz vascular surgery [facility] Surgery [...] as of this encounter (statuses as of 09/23/2024) Resolved Problems Problem Noted Date Diagnosed Date Resolved Date Paroxysmal A-fib 08/29/2024 09/20/2024 Overview (09/20/2024): duplicate Coronary artery disease invo lving [place] coronary artery of [place] heart without angina pectoris 08/29/2024 09/20/2024 Overview [...] 10/13/2018 02/15/2019 Coronary artery disease invo lving [place] heart without angina pectoris 06/01/2018 11/10/2021 DM type 2 causing neurological disease 01/24/2018 01/14/2021 Type 2 diabetes mellitus wit h diabetic nephropathy, without long-term current use of insulin 09/08/2017 09/08/2017 Atherosclerotic heart diseas e of [place] coronary artery with unspecified angina pectoris 09/08/2017 [...] as of this encounter (statuses as of 09/23/2024) Immunizations Name Administration Dates Next Due COVID-19 mRNA, LNP-s, No Pre serve, 2-Dose Series ([employer]) 08/13/2021,01/22/2021,12/27/2020 Covid-19, Mrna, Lnp-s, Pf, B ivalent, [...] No 08/07/2024 Does the household have a [facility] source of income? 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 Surgery 10/08 Plan a left popliteal to dorsalis pedis bypass likely with the more proximal greater saphenous vein being transposed. Type 2 diabetes mellitus with diabetic neuropathy, without long-term current use of insulin (HCC) "RED FLAG" Diabetic symptoms: Excessive Thirst, Confusion, [...] - [facility] ([facility]) 07/19/2024 11:07 AM Dyslipidemia, goal LDL below 70 Continue statin Paroxysmal atrial fibrillation (HCC) Rate controlled Continue metoprolol with eliquis Advanced care planning/counseling discussion Additional Medical Decision Making: Patient lives with spouse Independent with ADLs Spouse assists with medications Ambulates with walker Scheduled for surgery with Dr Shabazz at [facility] 10/08 Scheduled appointments in the next 60 days: Future Appointments-next 60 days Date/Time Provider Specialty Dept Phone 09/20/2024 11:00 AM Duane Masterson PA-C [facility] [phone] 09/25/2024 8:20 AM (Arrive by 8:05 AM) Itzel Sloan PA-C Family Medicine [phone] 10/09/2024 8:30 AM Dhara Sky RN [facility] [phone] 10/25/2024 7:00 AM Fernanda [facility] [phone] 11/01/2024 11:40 AM (Arrive by 11:25 AM) Yury Cash MD Family Medicine [phone] 11/21/2024 8:30 AM (Arrive by 8:15 AM) Sajan Griffith PA-C Cardiology [phone] 05/29/2025 9:45 AM Constantino Weber DO Ophthalmology [phone] A total of 40 minutes was spent face to face (via video-based telemedicine if designated as a telemedicine visit) Subjective Subjective Is this a Telemedicine Visit? No, this is an Home Visit. Reason For [facility] Visit: Enrollment Current Concerns: Gomez Suarez is a 88 year old male seen today for a [facility] provider visit. 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 ischemic left forefoot Plans for left leg bypass 10/[address] Shabazz Overall feeling "ok" today Intermittent pains in feet with small ulcers on toes Denies any SOB Denies chest pain, palpitations Denies fever/chills Ambulates with walker DR Shabazz - [facility] vascular We explained this to him and his and he is in agreement 10/08 3 days [facility] Recent gout left foot Denies sob Using walker Lives with spouse Additional Current Outpatient Medications Medication Sig Dispense Refill aspirin enteric coated 81 MG TBEC Take 1 Tablet by mouth in the morning. ONETOUCH DELICA LANCETS FINE MISC Check blood sugars once daily, E11.9, not using insulin, 100 Each3 Multiple Vitamin (ONE-A-DAY MENS) Tablet Take 1 Tablet by mouth in the morning. OneTouch Ultra Blue In Vitro Strip (Glucose [...] mouth every other day.) 90 Capsule 2 Myrbetriq 50 MG Oral Tablet Extended Release 24 Hour Take 1 Tablet by mouth in the morning. In the morning.. OneTouch Ultra 2 w/Device Kit Check blood sugars once daily 1 Kit 0 Atorvastatin Calcium 40 MG Oral Tablet (Lipitor) TAKE ONE TABLET BY MOUTH EVERY DAY (Patient takingdifferently: every afternoon.) 100 Tablet 1 Metoprolol Succinate ER 100 MG Oral Tablet [...] 1 Tablet before bedtime. 180 Tablet 3 methylPREDNISolone 4 MG Oral Tablet Therapy Pack (Medrol Dosepack) follow package directions 21 Tablet 0 Metoprolol Succinate ER 50 MG Oral Tablet Extended Release 24 Hour (toPROL XL) TAKE ONE TABLET BY MOUTH EVERY DAY AT NOON 90 Tablet 3 metFORMIN HCl ER 500 MG Oral Tablet Extended Release 24 Hour (Glucophage XR) Take 2 Tablets by mouth 2 times a day with morning and evening meals. 400 Tablet 1 No current facility-administered medications for this visit. I have reviewed the following results: Hemoglobin A1C, CBC, and BMP Lab Results Component Value Date/Time LEFT VENTRICULAR EJECTION FRACTION 65 07/30/2024 12:16 PM Objective Objective Vitals: 09/20/24 1105 BP: 140/74 Last Weights: Wt Readings from Last 3 Encounters: 09/17/24 101.2 kg (223 lb) 08/24/24 98.9 kg (218 lb) 08/14/24 97.5 kg (215 lb) Last BPs: BP Readings from Last 4 Encounters: 09/20/24 140/74 09/17/24 120/74 09/04/24 134/68 08/24/24 112/58 General: alert and no distress Neuro: alert & oriented x 3 with fluent speech Heart: regular rate & rhythm, +murmur Lungs: lungs clear to auscultation, no wheeze, no rales, no rhonchi Abdomen: abdomen soft, non-tender, and normal bowel sounds Ext: small ulcer of left foot 3rd toe, somewhat cool to touch documented in this encounter Miscellaneous Notes * Assessment & Plan Note - Duane Masterson PA-C - 09/23/2024 11:41 PM EST Associated Problem(s): Unspecified atherosclerosis of [place] arteries of extremities, bilateral legs (HCC) Follows with Dr Shabazz vascular surgery [facility] Surgery 10/08 Plan a left popliteal to dorsalis pedis bypass likely with the more proximal greater saphenous vein being transposed. * Assessment & Plan Note - Duane Masterson PA-C - 09/23/2024 11:41 PM EST Associated Problem(s): Type 2 diabetes mellitus with diabetic neuropathy, without long-term currentuse of insulin (HCC) "RED FLAG" Diabetic symptoms: Excessive Thirst, Confusion, [...] - [facility] ([facility]) 07/19/2024 11:07 AM * Assessment & Plan Note - Duane Masterson PA-C - 09/23/2024 11:41 PM EST Associated Problem(s): Dyslipidemia, goal LDL below 70 Continue statin * Assessment & Plan Note - Duane Masterson PA-C - 09/23/2024 11:41 PM EST Associated Problem(s): Paroxysmal atrial fibrillation (HCC) Rate controlled Continue metoprolol with eliquis * ACP (Advance Care Planning) - Duane Masterson PA-C - 09/23/2024 11:38 PM EST Patient-centered Communication 09/20/2024 The patient/surrogate voluntarily agreed to participate in advance care planning discussion. They were advised that this is a separate service which may incur out of pocket cost in the form of copayment and/or deductibles. Location: Home Individual(s) present for conversation: Patient and spouse Decisions Synopsis SmartLink Most Recent Value Past ~10 years 09/23/2024 23:37 Decisions CPR decision: Patient chooses CPR 09/23/2024 Patient chooses CPR Intubation/Mechanical Ventilation decision: Patient chooses Intubation/mechanical ventilation 09/23/2024 Patient chooses Intubation/mechanical ventilation Antibiotic therapy decision: Patient chooses Antibiotic therapy 09/23/2024 Patient chooses Antibiotic therapy Surgical procedure(s) decision: Patient chooses Surgical procedure 09/23/2024 Patient chooses Surgical procedure Additional Comments Synopsis SmartLink Most Recent Value Past ~10 years 09/23/2024 23:37 Additional Comments Additional Comments: Full code. Reviewed goals of care and left blank POLST and LW/POA for review 09/23/2024 Full code. Reviewed goals of care and left blank POLST and LW/POA for review Discerning What Matters Most to the Patient: Synopsis SmartLink Most Recent Value Past ~10 years 09/23/2024 23:37 Discerning What Matters Most to the Patient Their current SYMPTOMS include: Pain;Reduced overall well being;Tiredness 09/23/2024 Pain;Reduced overall well being;Tiredness They say their illness has CHANGED THEIR LIFE by: Less enjoyment (quality of life) 09/23/2024 Less enjoyment (quality of life) The patient thinks COMPLICATIONS in the future may be: More hospitalizations;More pain 09/23/2024 More hospitalizations;More pain Source: Content from [employer] Aligning Care With What Matters Most: Synopsis SmartLink Most Recent Value Past ~10 years 09/23/2024 23:37 Aligning Care With What Matters Most Interventions/Choices: CPR;Intubation/mechanical ventilation;Surgical procedure;Antibiotic therapy 09/23/2024 CPR;Intubation/mechanical ventilation;Surgical procedure;Antibiotic therapy Source: Content from [employer] 10 minutes spent in direct [id number] discussion Duane rinaldi PA-C documented in this encounter Plan of Treatment Upcoming Encounters Date Type Department Care Team (Late st Contact Info) Description 09/25/2024 8:20 AM EST Office Visit [address] [phone] Itzel Sloan PA-C [address] [place] [address] 10/09/2024 8:30 AM EST Home Visit [facility] [address] [facility] [place] [address] Dhara Sky RN 132 [facility] [place] [address] 10/25/2024 7:00 AM EST Laboratory Laboratory Patient [facility] Center, [address] [phone] [facility] [address] [address] 11/01/2024 11:40 AM EST Office Visit [facility] [address] [place] [address] Yury Cash MD [address] [facility] [place] [address] 11/21/2024 8:30 AM EST Office Visit Cardiology, [facility] [address] [place] [address] Sajan Griffith PA-C [address] [place] [address] 05/29/2025 9:45 AM EDT Office Visit [facility] Eye [facility] [address] [place] [address] Constantino Weber DO [address] [place] [address] Health Maintenance Due Date Last Done Comments [...] fibrillation (HCC)- Primary Atrial fibrillation Atherosclerosis of [place] artery of both lower extremities with other clinical manifestation (HCC) Hyperlipidemia associated with type 2 diabetes mellitus (HCC) Abdominal aortic aneurysm (AAA) without rupture, unspecified part (HCC) Aneurysm of ascending aorta without rupture (HCC) 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 Yes, not currently available Care Teams Atm Mechanic Relationship Specialty Start Date End Date Yury Cash MD [address] [place] [phone] PCP - General Family Medicine 07/19/24 documented as of this encounter
--- OUTSIDE RECORDS SUMMARY | 2024-11-07 08:01 | External Medical Summary | Summary of Care ---
Author Name Unknown Organization [facility] Address [address] [place] [address] Phone [phone] Care Team Providers Care Automotive Accessory Installer Name Role Phone Yury Cash MD Primary Care [facility] Reason for Visit * Reason Onset Date Comments Medication Refill 09/24/2024 Encounter Details Date Type Department Care Team ([facility] Contact Info) Description 09/24/[address] [phone] Maru White, tier lift operator Refill Allergies No known active allergiesdocumented as of this encounter (statuses as of 09/24/2024) Medications aspirin enteric coated 81 MG TBEC [...] Information Patient taking differently: 300 mg Oral [id number], Reported on 09/17/2024 Omeprazole 20 MG Oral [...] the morning. In the morning.. 4 Active Minus 2 w/Device Kit Check blood sugars once daily 1 Kit 01/31/2024 11:32 AM EDT 4 Active Atorvastatin Calcium 40 MG Oral Tablet (Lipitor)Indicat ions:Dyslipidemi a, goal LDL below 100 TAKE ONE TABLET BY MOUTH EVERY DAY 100 Tablet 1 07/17/2024 4:51 PM EDT 4 Active Additional Information Patient taking differently: [id number], Reported on 09/17/2024 Metoprolol Succinate ER 100 [...] as of this encounter (statuses as of 09/24/2024) Active Problems Problem Noted Date Diagnosed Date [...] to breakdown of skin 09/27/2023 Atherosclerosis of three affiliated co ronary artery without angina pectoris 02/09/2023 [...] EDT): Followed by vascular Unspecified atherosclerosis of three affiliated arteries of extremities, bilateral legs 02/15/2019 Assessment & Plan (09/23/2024 11:41 PM EST): Follows with Dr Pfeiffer vascular surgery [facility] Surgery 10/08 Plan a left popliteal [...] as of this encounter (statuses as of 09/24/2024) Resolved Problems Problem Noted Date Diagnosed Date Resolved Date Paroxysmal A-fib 08/29/2024 09/20/2024 Overview (09/20/2024): duplicate Coronary artery disease invo lving three affiliated coronary artery of three affiliated heart without angina pectoris 08/29/2024 09/20/2024 Overview [...] 10/13/2018 02/15/2019 Coronary artery disease invo lving three affiliated heart without angina pectoris 06/01/2018 11/10/2021 DM type 2 causing neurological disease 01/24/2018 01/14/2021 Type 2 diabetes mellitus wit h diabetic nephropathy, without long-term current use of insulin 09/08/2017 09/08/2017 Atherosclerotic heart diseas e of three affiliated coronary artery with unspecified angina pectoris 09/08/2017 [...] as of this encounter (statuses as of 09/24/2024) Immunizations Name Administration Dates Next Due COVID-19 mRNA, LNP-s, No Pre serve, 2-Dose Series ([employer]) 08/13/2021,01/22/2021,12/27/2020 Covid-19, Mrna, Lnp-s, Pf, B ivalent, 30 Mcg, IM, 12 yrs and above ([employer]) 11/09/2022 Pneumococcal Conjugate Vacc, 13 Valent (Prevnar) [...] of this medication to be sentto the [facility] mail order pharmacy. Patient has not received the medication. She also states thatpatient was recently switched to metoprolol 100mg and she would also like this prescription sent tothe [facility] in pharmacy. Prescriptions pended and sent to [place] as PCP is currently out of the office. Reason for Call: No chief complaint on file. Contact: Telephone Call Contact Type: Medication Provider In-Basket: Yes Outcome: see above Face to face time spent with Patient (minutes): 0 Total Time including non face to face (minutes): 10 documented in this encounter Plan of Treatment Upcoming Encounters Date Type Department Care Team ([facility] Contact Info) Description 10/09/2024 8:30 AM EST Home Visit [facility] [address] [facility] [place] [address] Dhara Sky RN 132 [facility] [place] [address] 10/25/2024 7:00 AM EST Laboratory Laboratory Patient Service [address] [phone] [address] 11/01/2024 11:40 AM EST Office Visit [facility] [address] [place] [address] Yury Cash MD [address] [facility] [place] [address] 11/21/2024 8:30 AM EST Office Visit Cardiology, [facility] [address] [place] [address] Sajan Griffith PA-C [address] [place] [address] 05/29/2025 9:45 AM EDT Office Visit [facility] Eye [facility] [address] [place], [place] [phone] Constantino Weber DO [address] [place] [address] Health Maintenance Due Date Last Done Comments [...] fibrillation (HCC)- Primary Atrial fibrillation Atherosclerosis of three affiliated artery of both lower extremities with other clinical manifestation (HCC) Hyperlipidemia associated with type 2 diabetes mellitus (HCC) Abdominal aortic aneurysm (AAA) without rupture, unspecified part (HCC) Aneurysm of ascending aorta without rupture (HCC) Atherosclerosis of three affiliated artery of both lower extremities with bilateral [...] the patient have Health Care Power of Clinical Documentation Improvement Specialist? Yes, not currently available Care Teams Automotive Accessory Installer Relationship Specialty Start Date End Date Yury Cash MD [address] [place] [phone] PCP - General Family Medicine 07/19/24 documented as of this encounter
--- OUTSIDE RECORDS SUMMARY | 2024-11-07 08:01 | External Medical Summary | Summary of Care ---
Author Name Unknown Organization [facility] Address [address] [place] [address] Phone [phone] Care Team Providers Care Guest Relations Executive Name Role Phone Yury Cash MD Primary [facility] Reason for Visit * Reason Comments Pain In left foot Encounter Details Date Type Department Care Team (Latest Contact Info) Description 09/17/2024 9:50 AM EST [facility] Visit [facility], [address] [place] [address] Ulises Garcia PA-C [address] [place] [address] Gout of big toe* Allergies No known active allergiesdocumented as of [...] Information Patient taking differently: 300 mg Oral [id number], Reported on 09/17/2024 Omeprazole 20 MG Oral Capsule Delayed Release (PriLOSEC)Indica tions:Dysphagia TAKE 1 CAPSULE BY MOUTH IN THE MORNING. TAKE 1 HOUR BEFORE THE FIRST MEAL OF THE DAY. 90 Capsule 2 4 Active Additional Information Patient taking differently: 20 mg Oral EVERY OTHER DAY, Reported on 09/17/2024 metFORMIN HCl ER 500 MG Oral Tablet Extended Release 24 Hour (Glucophage XR)Indications:T ype 2 diabetes mellitus with diabetic neuropathy, without long-term current use of insulin ([facility]) Take 2 Tablets by mouth 2 times a day with morning and evening meals. 400 Tablet 1 07/09/2024 12:05 PM EDT 4 Active Myrbetriq 50 MG Oral Tablet Extended Release 24 Hour Take 1 Tablet by mouth in the morning. In the morning.. 4 Active Hooja 2 w/Device Kit Check blood sugars once daily 1 Kit 01/31/2024 11:32 AM EDT 4 Active Atorvastatin Calcium 40 MG Oral Tablet (Lipitor)Indicat ions:Dyslipidemi a, goal LDL below 100 TAKE ONE TABLET BY MOUTH EVERY DAY 100 Tablet 1 07/17/2024 4:51 PM EDT 4 Active Additional Information Patient taking differently: [id number], Reported on 09/17/2024 Metoprolol Succinate ER 100 [...] neuropathy, without long-term current use of insulin ([facility]) TAKE ONE TABLET BY MOUTH THREE TIMES [...] follow package directions 21 Tablet 4 Active documented as of this encounter (statuses as of 09/17/2024) Active Problems Problem Noted Date Diagnosed Date Paroxysmal A-fib 08/29/2024 Coronary artery disease invo lving chipewwa coronary artery of chipewwa heart without angina pectoris 08/29/2024 Nonrheumatic aortic [...] gout of multiple sites withou ana lilia latifs 10/14/2014 Hx of nonmelanoma skin cancer 08/21/2012 [...] mRNA, LNP-s, No Pre serve, 2-Dose Series ([employer]) 08/13/2021,01/22/2021,12/27/2020 Covid-19, Mrna, Lnp-s, Pf, B ivalent, 30 Mcg, IM, 12 yrs and above ([employer]) 11/09/2022 Pneumococcal Conjugate Vacc, 13 Valent (Prevnar) [...] 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 Start Date 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 - [employer] Not on file Not on fi le Not on file documented as of this encounter Last Filed Vital Signs Vital Sign Reading Time Taken Comments Blood Pressure 120/74 09/17/2024 9:42 AM EST Pulse 66 09/17/2024 9:42 AM EST Temperature 36.7 C (98.1 F) 09/17/2024 9:42 AM ES T Respiratory Rate 16 09/17/2024 9:42 AM EST Oxygen Saturation 96% 09/17/2024 9:42 AM EST Inhaled Oxygen Concentration - - Weight 101.2 kg (223 lb) 09/17/2024 9:42 AM EST Height - - Body Mass Index 32 08/06/2024 9:11 AM EDT documented in this [...] documented in this encounter Progress Notes * Ulises Garcia PA-C - 09/17/2024 9:42 AM EST [facility] Basic Exam Gomez Suarez is a 88 year old year old male who presents for evaluation of Pain in left foot, Reports pain on base of Great toe, Pain x 3 days, He has Surgery Scheduled on 10/08/24 to help with Circulation in the bottom of his Left leg. Reports issues in the past with Cellulitis. Today Lower Ext feels cold and this is a Chronic Issue of his Left foot and see Vascular for this with surgery 10/08/24 Afebrile, Great toe pain. Review of Systems Constitutional: Negative. HENT: Negative. Eyes: Negative. Respiratory: Negative. Cardiovascular: Negative. Gastrointestinal: Negative. Endocrine: Negative. Genitourinary: Negative. Musculoskeletal: Negative. Left great toe pain Skin: Negative. Allergic/Immunologic: Negative. Neurological: Negative. Hematological: Negative. Psychiatric/Behavioral: Negative. 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 DM type 2, goal A1c below 7 09/20/2011 Gout 10/14/2014 Hyperlipidemia Other after-cataract, not obscuring vision 04/07/2009 Paroxysmal atrial fibrillation (HCC) PVD (peripheral vascular disease) (HCC) Recurrent falls Recurrent UTI Urinary retention Vitreous [...] performed by Bharath Monaco MD at OR [facility] [place] REMOVAL OF TONSILS, UNDER AGE 13 approx age 11 SACROILIAC JOINT INJECT W/GUIDANCE Bilateral 05/09/2023 INJECTION SACROILIAC JOINT performed by Roberto Li DO at OR [facility] SACROILIAC JOINT INJECT W/GUIDANCE Bilateral 09/29/2023 INJECTION SACROILIAC JOINT performed by Roberto Li DO at OR [facility] Social History Tobacco Use Smoking status: Former Current packs/day: 0.00 Average packs/day: 1 pack/day for 37.0 years (37.0 ttl pk-yrs) Types: Cigarettes, Cigars Start date: 10/31/1951 Quit date: 10/31/1989 Years since quittin.9 Smokeless tobacco: Never Tobacco comments: Started smoking age - 17 - 18 Substance Use Topics Alcohol use: No Vaping/E-Cigarette Use Vaping/E-Cigarette Use Never User Vaping/E-Cigarette Substances Nicotine No THC No Vaping/E-Cigarette Devices Disposable No Pre-filled Pod No Patient Active Problem List Diagnosis After cataract not obscuring vision Dyslipidemia, goal LDL below 70 History of malignant melanoma of skin Hx of nonmelanoma skin cancer Idiopathic chronic gout of multiple sites without tophus Paroxysmal atrial fibrillation (HCC) S/P right coronary artery (RCA) stent placement Type 2 diabetes mellitus with diabetic neuropathy, without long-term current use of insulin (HCC) 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, bilateral legs (HCC) Abdominal aortic aneurysm (AAA) without rupture (HCC) CKD (chronic kidney disease) stage 2, GFR 60-89 ml/min 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 (HCC) Atherosclerosis of ch[place]a coronary artery without angina pectoris Skin ulcer of right ankle, limited to breakdown of skin (HCC) History of tonsillectomy Hypomagnesemia PVD (peripheral vascular disease) (HCC) Type 2 myocardial infarction (HCC) Aneurysm of ascending aorta without rupture (HCC) Paroxysmal A-fib (HCC) Coronary artery disease involving chipewwa coronary artery of chipewwa heart without angina pectoris Nonrheumatic aortic valve stenosis Ascending aorta enlargement (HCC) Review of patient's allergies indicates: No Known Allergies Current Outpatient Medications Medication Sig Dispense Refill aspirin enteric coated 81 MG TBEC Take 1 Tablet by mouth in the morning. [employer] LANCETS FINE MISC Check blood sugars once daily, E11.9, not using insulin, 100 Each3 Multiple Vitamin (ONE-A-DAY MENS) Tablet Take 1 Tablet by mouth in the morning. uberVU Ultra Blue In Vitro Strip (Glucose Blood) [...] mouth every other day.) 90 Capsule 2 metFORMIN HCl ER 500 MG Oral Tablet Extended Release 24 Hour (Glucophage XR) Take 2 Tablets by mouth 2 times a day with morning and evening meals. 400 Tablet 1 Myrbetriq 50 MG Oral Tablet Extended Release 24 Hour Take 1 Tablet by mouth in the morning. In the morning.. uberVU Ultra 2 w/Device Kit Check blood sugars [...] Dosepack) follow package directions 21 Tablet 0 No current facility-administered medications for this visit. Nursing Notes and Vital Signs reviewed. BP 120/74 | Pulse 66 | Temp 36.7 C (98.1 F) (Tympanic) | Resp 16 | Wt 101.2 kg (223 lb) | SpO2 96% | BMI 32.00 kg/m | BSA 2.24 m Physical Exam Constitutional: Appearance: Normal appearance. He is normal weight. Cardiovascular: Rate and Rhythm: Normal rate and regular rhythm. Pulses: Normal pulses. Heart sounds: Normal heart sounds. Pulmonary: Effort: Pulmonary effort is normal. Breath sounds: Normal breath sounds. Musculoskeletal: General: Normal range of motion. Cervical back: Normal range of motion and neck supple. Comments: LLE cold as pt reports that normal for him + Rubor LLE Weak PT/DP Pulse+1 Hx PVD Skin: General: Skin is warm. Neurological: General: No focal deficit present. Mental Status: He is alert and oriented to person, place, and time. Mental status is at baseline. Psychiatric: Mood and Affect: Mood normal. Behavior: Behavior normal. Thought Content: Thought content normal. Judgment: Judgment normal. ASSESSMENT: Gout of big toe (Primary) - methylPREDNISolone 4 MG Oral Tablet Therapy Pack (Medrol Dosepack); follow package directions - Tylenol PRN Follow Up: Return if symptoms worsen or fail to improve, for Clinic Visit. | For: Clinic Visit Ulises Garcia PA-C [address] [phone] documented in this encounter Nursing Notes * Viry Allen CMA - 09/17/2024 9:38 AM EST Gomez Suarez is a 88 year old male who presents to walk-in clinic today complaining of Chief Complaint Patient presents with Pain In left foot Brief history: Pt presents today with pain in his left foot, reported to be on the ball of his great toe, he states this has been going on for the last three days. He has a surgery schedule on 10/08 to help with the circulation in the bottom of his left leg. Onset/duration x3 days . Tried tylenol Patient is accompanied by his for today's visit. documented in this encounter Plan of Treatment Upcoming Encounters Date Type Department Care Team (Late st Contact Info) Description 09/20/2024 11:00 AM EST Home Visit [facility] [address] [facility] [place] [address] Duane Masterson PA-C [address] [facility] [place] [address] 09/25/2024 8:20 AM EST Office Visit [address] [phone] Itzel Sloan PA-C [address] [place] [address] 10/09/2024 8:30 AM EST Home Visit ising at [facility] [address] [facility] [place] [address] Dhara Sky, CHRSI [address] [facility] [place] [address] 10/25/2024 7:00 AM EST Laboratory Laboratory Patient Service [address] [phone] [address] 11/01/2024 11:40 AM EST Office Visit Family [facility] [place] [address] [facility] [place] [phone] Yury Cash MD [address] [place], [place] [address] [place] [phone] 11/21/2024 8:30 AM EST Office Visit Cardiology, [facility] [address] [place] [address] Sajan Griffith PA-C [address] [place] [address] 05/29/2025 9:45 AM EDT Office Visit [facility] [address] [place] [address] Constantino Weber DO [address] [place] [address] Health Maintenance Due Date Last Done Comments [...] fibrillation (HCC)- Primary Atrial fibrillation Atherosclerosis of chipe[place]a artery of both lower extremities with other clinical manifestation (HCC) Hyperlipidemia associated with type 2 diabetes mellitus (HCC) Abdominal aortic aneurysm (AAA) without rupture, unspecified part (HCC) Aneurysm of ascending aorta without rupture (HCC) Gout of big toe- Primary Acute gouty arthropathy documented in this encounter Advance Directives * [...] the patient have Health Care Power of Pals Nurse? Yes, not currently available Care Teams Guest Relations Executive Relationship Specialty Start Date End Date Yury Cash MD [address] [place] [phone] PCP - General Family Medicine 07/19/24 documented as of this encounter"
[2024-11-07] MEDS: ACETAMINOPHEN 325 MG TAB PO PRN (08:02)
[2024-11-07] MEDS: ASPIRIN 81 MG ECTAB PO SCH (08:02)
[2024-11-07] MEDS: APIXABAN 5 MG TABLET PO SCH (08:02)
[2024-11-07] MEDS: METOPROLOL SUCC 50MG EXT REL TAB PO SCH (08:02)
[2024-11-07] MEDS: VIBEGRON 75 MG TAB PO SCH (08:02)
[2024-11-07] MEDS: ATORVASTATIN 40 MG TAB PO SCH (08:02)
[2024-11-07] MEDS: MULTIVITAMIN TAB PO SCH (08:02)
--- OUTSIDE RECORDS SUMMARY | 2024-11-07 08:02 | External Medical Summary | Summary of Care ---
Author Name Unknown Organization [facility] Address [address] [place] [address] Phone [phone] Care Team Providers Care Lead Pharmacy Technician Name Role Phone Yury Cash MD Primary Care [facility] Reason for Visit * Reason Comments Emergency Department Follow-Up Encounter Details Date Type Department Care Team ([facility] Contact Info) Description 08/10/2024 9:20 AM EDT Office Visit [address] [phone] Rosario Goodwin PA-C [address] [place] [phone] Cellulitis of left lower extremity*; Tinea pedis of left foot; Type 2 diabetes mellitus with diabetic neuropathy, without long-term current use of insulin (HCC); Atrial fibrillation with RVR ([facility]) Allergies No known active allergiesdocumented as of this encounter (statuses as of 08/14/2024) Medications Medication Sig Dispensed Refills Start Date End Date Status aspirin enteric coated 81 MG TBEC Take 1 Tablet by mouth in the morning. 6 Active ONETOUCH DELICA LANCETS FINE MISC Check blood sugars once daily, E11.9, not using insulin, 100 Each 3 9 Active Additional Information Patient not taking.Informant: Patient, Reported on 08/10/2024 Multiple Vitamin (ONE-A-DAY MENS) Tablet Take 1 Tablet by mouth in the morning. Active OneTouch Ultra Blue In Vitro Strip (Glucose Blood) USE 1 STRIP TO CHECK GLUCOSE ONCE DAILY, dx E11.40 100 Strip 3 1 Active Additional Information Patient not taking.Informant: Patient, Reported on 08/10/2024 Allopurinol 300 MG Oral Tablet (Zyloprim) TAKE ONE TABLET BY MOUTH EVERY DAY 90 Tablet 3 4 11/16/19 25 Active Additional Information Patient taking differently: 300 mg Oral [id number], Reported on 08/10/2024 Omeprazole 20 MG Oral Capsule Delayed Release (PriLOSEC)Indica tions:Dysphagia TAKE 1 CAPSULE BY MOUTH IN THE MORNING. TAKE 1 HOUR BEFORE THE FIRST MEAL OF THE DAY. 90 Capsule 2 4 Active Additional Information Patient taking differently: 20 mg Oral EVERY OTHER DAY, Reported on 12/22/2023 metFORMIN HCl ER 500 MG Oral Tablet Extended Release 24 Hour (Glucophage XR)Indications:T ype 2 diabetes mellitus with diabetic neuropathy, without long-term current use of insulin (HCC) Take 2 Tablets by mouth 2 times a day with morning and evening meals. 400 Tablet 1 4 Active Myrbetriq 50 MG Oral Tablet Extended Release 24 Hour Take 1 Tablet by mouth in the morning. In the morning.. 4 Active Augmented Pixels CO Ultra 2 w/Device Kit Check blood sugars once daily 1 Kit 4 Active Additional Information Patient not taking.Reported on 08/10/2024 Atorvastatin Calcium 40 MG Oral Tablet (Lipitor)Indicat ions:Dyslipidemi a, goal LDL below 100 TAKE ONE TABLET BY MOUTH EVERY DAY 100 Tablet 1 4 Active Additional Information Patient taking differently: [id number], Reported on 08/14/2024 Metoprolol Succinate ER 100 MG Oral Tablet Extended Release 24 Hour (toPROL XL) Take 1 Tablet by mouth in the morning and 1 Tablet before bedtime. 60 Tablet 3 4 Active Furosemide 40 MG Oral Tablet (Lasix) Take 1 Tablet by mouth in the morning. 30 Tablet 3 4 Active Doxycycline Hyclate 100 MG Oral Capsule Take 1 Capsule by mouth in the morning and 1 Capsule before bedtime. Do all this for 12 days. 24 Capsule 4 08/18/20 24 Active Cephalexin 500 MG Oral Capsule (Keflex) Take 1 Capsule by mouth in the morning and 1 Capsule at noon and 1 Capsule in the evening and 1 Capsule before bedtime. Do all this for 10 days. 40 Capsule 4 08/16/20 24 Active Acetaminophen 500 MG Oral Tablet (Tylenol) Take 1 Tablet by mouth every 6 hours as needed. Active Bisacodyl 10 MG Rectal Suppository (Dulcolax) Administer 1 Suppository into the rectum daily as needed for Constipation. Active Ketoconazole 2 % External CreamIndications :Tinea pedis of left foot Apply topically to affected area 2 times a day. Apply to left foot 30 g 1 4 09/09/20 24 Active Gabapentin 600 MG Oral Tablet (Neurontin)Indic ations:Type 2 diabetes mellitus with diabetic neuropathy, without long-term current use of insulin (HCC) TAKE ONE TABLET BY MOUTH THREE TIMES A DAY 270 Tablet 1 4 08/12/20 24 Discontinued(Ref ill) Cefdinir 300 MG Oral Capsule (Omnicef) Take 1 Capsule by mouth in the morning and 1 Capsule before bedtime. Do all this for 4 days. 8 Capsule 4 08/10/20 24 Discontinued Apixaban 5 MG Oral Tablet (Eliquis) Take 1 Tablet by mouth in the morning and 1 Tablet before bedtime. 60 Tablet 4 08/14/20 24 Discontinued(Ref ill) documented as of this encounter (statuses as of 08/14/2024) Active Problems Problem Noted Date Diagnosed Date Type 2 myocardial infarction 07/30/2024 History of tonsillectomy 12/22/2023 Hypomagnesemia 12/22/2023 Skin ulcer of right ankle, limited to breakdown of skin 09/27/2023 Atherosclerosis of [place] co ronary artery without angina pectoris 02/09/2023 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 08/23/2022 PVD (peripheral vascular disease) 12/16/2021 Overview: Last Assessment & Plan: Patient sent back [...] disease) stage 2, GFR 60-89 ml/min 08/10/2021 Overview: 08/01/24 06:50 EGFR: 75 08/02/24 06:53 EGFR: 79 08/06/24 11:38 EGFR: 73 Per CKD protocol Abdominal aortic aneurysm (AAA) without rupture 06/06/2020 Unspecified atherosclerosis of [place] arteries of extremities, bilateral legs 02/15/2019 Type 2 diabetes mellitus wit h diabetic neuropathy, without long-term current use of insulin 09/08/2017 S/P right coronary artery (RCA) stent placement 09/20/2016 Paroxysmal atrial fibrillation 05/17/2016 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 10/14/2014 Hx of nonmelanoma skin cancer 08/21/2012 Overview: L posterior shoulder BCC 12/2011 History of malignant melanoma of skin 08/16/2011 Overview: Back - , no SLN, unknown depth Hyperlipidemia associated with type 2 diabetes m salazaritus 09/11/2010 After cataract not obscuring vision 04/07/2009 Overview: ICD-10 update of inactive term documented as of this encounter (statuses as of 08/14/2024) Resolved Problems Problem Noted Date Diagnosed Date [...] 10/13/2018 02/15/2019 Coronary artery disease invo lving [place] heart without angina pectoris 06/01/2018 11/10/2021 DM type 2 causing neurological disease 01/24/2018 01/14/2021 Type 2 diabetes mellitus wit h diabetic nephropathy, without long-term current use of insulin 09/08/2017 09/08/2017 Atherosclerotic heart diseas e of [place] coronary artery with unspecified angina pectoris 09/08/2017 11/15/2017 Stricture of artery 09/08/2017 11/15/19 18 Paroxysmal A-fib 05/17/2016 11/14/2019 Sepsis 05/17/2016 04/28/2017 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 11/10/2021 Atrial fibrillation (HCC) (a ka ATRIAL FIBRILLATION (HCC)) 05/14/2016 04/28/2017 DM type 2 causing neurological disease 08/22/2013 01/24/2018 Type 2 diabetes mellitus wit h hemoglobin A1c goal of less than 7.0% 09/20/2011 11/14/2019 Overview: ICD-10 update of inactive term Rotator cuff syndrome 12/03/20102021 Vitreous degeneration 04/01/20102021 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 11/10/2021 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 11/14/2019 Type 2 diabetes mellitus wit h hemoglobin A1c goal of 7.0%-8.0% 09/20/2011 Overview: ICD-10 update of inactive term documented as of this encounter (statuses as of 08/14/2024) Immunizations Name Administration Dates Next Due COVID-19 mRNA, LNP-s, No Pre serve, 2-Dose Series ([facility]) 08/13/2021,01/22/2021,12/27/2020 Covid-19, Mrna, Lnp-s, Pf, B ivalent, [...] 10/31/1952 - 10/31/1989 Cigars Smokeless Tobacco: Never Tobacco Cessation:Counseling Given: Yes Comments:Started smoking age - 17 - 18 Alcohol Use Standard Drinks/Week Comments No 0 (1 standard drink = 0.6 oz pur e alcohol) PHQ-2 Answer Date Recorded PHQ Adult Total Score 0 07/13/2023 Hunger Vital Sign Answer Date Recorded Within [...] Assigned at Male 02/15/2019 10:31 AM EDT Gender Identity Male 02/15/2019 10:31 AM EDT Sexual Orientation Straight 08/06/2024 9: 24 AM EDT Job Start Date Occupation Industry Not on file Not on file Not on file documented as of this encounter Last Filed Vital Signs Vital Sign Reading Time Taken Comments Blood Pressure 124/56 08/10/2024 9:23 AM EDT Pulse 64 08/10/2024 9:23 AM EDT Temperature 36.1 C (97 F) 08/10/2024 9:23 AM EDT Respiratory Rate 20 08/10/2024 9:23 AM EDT Oxygen Saturation 97% 08/10/2024 9:23 AM EDT Inhaled Oxygen Concentration - - Weight 98 kg (216 lb) 08/10/2024 9:23 AM EDT Height - - Body Mass Index 30.99 08/06/2024 9:11 AM EDT documented in this encounter Functional Status Functional Status Response Date of Assess ment Are you deaf or do you have serious difficulty hearing? No 07/30/2024 Are you blind or do you have serious difficulty seeing, even when wearing glasses? No 07/30/2024 Do you have serious difficul ty walking or climbing stairs? (5 years old or older) Yes-walking 07/30/2024 Do you have difficulty dress ing or bathing? (5 years old or older) No 07/30/2024 Because of a physical, menta l, or emotional condition, do you have difficulty doing errands alone such as visiting a doctor s office or shopping? (15 years old or older) No 07/30/20 Cognitive Status Response Date of Assessm ent Because of a physical, menta l, or emotional condition, do you have serious difficulty concentrating, remembering, or making decisions? (5 years old or older) No 07/30/2024 documented as of this encounter Progress Notes * Rosario Goodwin PA-C - 08/14/2024 3:00 PM EDT Images from the original note were not included. History of Present Illness Gomez Suarez is a 88 year old male that presents for Emergency Department Follow-Up Presents today for ED f/u. Seen at [facility] 4 days ago for LLE cellulitis. ED recommended admission for IV antibiotics and pt declined. He is compliant withj Keflex and Doxy. Significant PMH incl afib, DM2, and CAD S/P RCA stent. Follows with [facility]. Swelling and redness of LLE is improving. Denies fevers, chills, sweats. No N/V. Pt is enrolled in [facility]. Physical Exam Vitals: 08/10/24 0923 Temp: 36.1 C (97 F) Pulse: 64 Resp: 20 SpO2: 97% BP: 124/56 Physical Exam Vitals and nursing note reviewed. Constitutional: General: He is not in acute distress. Appearance: He is obese. Musculoskeletal: Left lower leg: Swelling present. 1+ Edema present. Comments: Decreased pulses left PT and DP Skin: Comments: Thick, white scaling skin between toes of left foot Neurological: Mental Status: He is alert. I have reviewed the following results: ER notes Assessment and Plan 1. Cellulitis of left lower extremity - improving, cont Keflex and Doxy 2. Tinea pedis of left foot - Ketoconazole 2 % External Cream; Apply topically to affected area 2 times a day. Apply to left foot Dispense: 30 g; Refill: 1 3. Type 2 diabetes mellitus with diabetic neuropathy, without long-term current use of insulin ([facility]) - DIABETES FOOT EXAM 4. Atrial fibrillation with RVR ([facility]) - cont Eliquis Wrap-Up Follow Up: Return if symptoms worsen or fail to improve, for Return with Physician. | For: Return with Physician | Check-out note: Due for return visit with Vascular. Time: I spent a total of 20-29 minutes (exact time 20 mins) on the date of service in preparation, delivery, and documentation of the care provided to Gomez Suarez excluding any time spent in the performance of separately billed services. The above was discussed and understanding was expressed. Rosario MCGEE [address] [phone] documented in this encounter Nursing Notes * [place] LPN - 08/10/2024 9:27 AM EDT The patient has been properly identified by confirmation of name and date of . Pt here for ER follow up. Seen at [facility] on 08/06 with cellulitis of left foot and new onset Afib. documented in this encounter Plan of Treatment Upcoming Encounters Date Type Department Care Team ([facility] Contact Info) Description 08/17/2024 10:30 AM EDT Home Visit [facility] [address] [facility] [place] [address] Marjorie Summers CRNP [address] [facility] [place] [address] Masha Rutledge, [facility] [address] [place] [address] 09/03/2024 12:20 PM EST Office Visit [facility] [address] [facility] [place] [address] Jeb Iraheta MD [address] [place] [address] 09/04/2024 8:30 AM EST Home Visit [facility] [place] [address] [place] [address] Dhara Sky, RN [address] [facility] [place] [address] 09/25/2024 8:20 AM EST Office Visit [address] [phone] Itzel Sloan PA-C [address] [place] [address] 10/25/2024 7:00 AM EST [facility] [phone] [facility] [address] [place] [address] 11/01/2024 11:40 AM EST Office Visit [address] [phone] Yury Cash MD [address] [place] [phone] 11/21/2024 8:30 AM EST Office Visit [facility] [address] Sajan Griffith PA-C [address] [facility] [place] [address] 05/29/2025 9:45 AM EDT Office Visit [facility] [address] [place], [place] [id number] Constantino Weber DO [address] [place] [address] Health Maintenance Due Date Last Done Comments Colonoscopy 01/20/2016 01/19/2011, 12/29, 01/07/2011, Additional history exists Albumin/Creatinine Ratio 05/07/2023 022, 04/11/2021, 05/28/2020, Additional history exists COVID-19 Vaccine ( season) 2024 11/09/2022, 08/13/2021, 01/22/2021, Additional history exists HbA1c 01/16/2025 07/19/2024, 01/29, 02/10/2024, Additional history exists B-12 05/17/2025 05/17/2024, [...] as of this encounter Visit Diagnoses Diagnosis Cellulitis of left lower extremity- Primary Cellulitis and abscess of leg, except foot Tinea pedis of left foot Dermatophytosis of foot Type 2 diabetes mellitus with diabetic neuropathy, without long-term current use of insulin (HCC) Atrial fibrillation with RVR (HCC) Atrial fibrillation documented in this encounter [...] the patient have Health Care Power of Time Cycle Operator? Yes, not currently available Care Teams Lead Pharmacy Technician Relationship Specialty Start Date End Date Yury Cash MD [address] [place] [phone] PCP - General Family Medicine 07/19/24 documented as of this encounter"
--- OUTSIDE RECORDS SUMMARY | 2024-11-07 08:02 | External Medical Summary | Summary of Care ---
Author Name Unknown Organization [facility] Address [address] [place] [address] Phone [phone] Care Team Providers Care Scrap Crane Operator Name Role Phone Yury Cash MD [facility] Encounter Details Date Type Department Care Team (Late st Contact Info) Description 08/17/2024 10:30 AM EDT [facility] [address] [place] [address] Marjorie Summers, ANALI [address] [place] [address] Masha Rutledge, Community Health Machine Bobbin Winder [address] [place] [address] Paroxysmal atrial fibrillation (HCC)*; Atherosclerosis of [place] artery of both lower extremities with other clinical manifestation (HCC); Hyperlipidemia associated with type 2 diabetes mellitus (HCC); Abdominal aortic aneurysm (AAA) without rupture, unspecified part (HCC); Aneurysm of ascending aorta without rupture (HCC) Allergies No known active allergiesdocumented as of this encounter (statuses as of 08/17/2024) Medications Medication Sig Dispensed Refills Start Date End Date Status aspirin enteric coated 81 MG TBEC Take 1 Tablet by mouth in the morning. 05/14/2016 Active ONETOUCH DELYAS[place]Y LANCETS FINE MISC Check blood sugars once daily, E11.9, not using insulin, 100 Each 3 11/24/2018 Active Additional Information Patient not taking.Informant: Patient, Reported on 08/10/2024 Multiple Vitamin (ONE-A-DAY MENS) Tablet Take 1 Tablet by mouth in the morning. Active [employer] Ultra Blue In Vitro Strip (Glucose Blood) USE 1 STRIP TO CHECK GLUCOSE ONCE DAILY, dx E11.40 100 Strip 3 10/04/2021 Active Additional Information Patient not taking.Informant: Patient, Reported on 08/10/2024 Allopurinol 300 MG Oral Tablet (Zyloprim) TAKE ONE TABLET BY MOUTH EVERY DAY 90 Tablet 3 11/17/2023 11/16/2024 Active Additional Information Patient taking differently: 300 mg Oral [id number], Reported on 08/10/2024 Omeprazole 20 MG Oral Capsule Delayed Release (PriLOSEC)Indicatio ns:Dysphagia TAKE 1 CAPSULE BY MOUTH IN THE MORNING. TAKE 1 HOUR BEFORE THE FIRST MEAL OF THE DAY. 90 Capsule 2 11/17/2023 Active Additional Information Patient taking differently: 20 mg Oral EVERY OTHER DAY, Reported on 12/22/2023 metFORMIN HCl ER 500 MG Oral Tablet Extended Release 24 Hour (Glucophage XR)Indications:Type 2 diabetes mellitus with diabetic neuropathy, without long-term current use of insulin (HCC) Take 2 Tablets by mouth 2 times a day with morning and evening meals. 400 Tablet 1 01/10/2024 Active Myrbetriq 50 MG Oral Tablet Extended Release 24 Hour Take 1 Tablet by mouth in the morning. In the morning.. 11/19/2023 Active [employer] Ultra 2 w/Device Kit Check blood sugars once daily 1 Kit 01/31/2024 Active Additional Information Patient not taking.Reported on 08/10/2024 Atorvastatin Calcium 40 MG Oral Tablet (Lipitor)Indication s:Dyslipidemia, goal LDL below 100 TAKE ONE TABLET BY MOUTH EVERY DAY 100 Tablet 1 07/16/2024 Active Additional Information Patient taking differently: [id number], Reported on 08/14/2024 Metoprolol Succinate ER 100 MG Oral Tablet Extended Release 24 Hour (toPROL XL) Take 1 Tablet by mouth in the morning and 1 Tablet before bedtime. 60 Tablet 3 08/02/2024 Active Furosemide 40 MG Oral Tablet (Lasix) Take 1 Tablet by mouth in the morning. 30 Tablet 3 08/03/2024 Active Doxycycline Hyclate 100 MG Oral Capsule Take 1 Capsule by mouth in the morning and 1 Capsule before bedtime. Do all this for 12 days. 24 Capsule 08/06/2024 08/18/2024 Active Acetaminophen 500 MG Oral Tablet (Tylenol) Take 1 Tablet by mouth every 6 hours as needed. Active Bisacodyl 10 MG Rectal Suppository (Dulcolax) Administer 1 Suppository into the rectum daily as needed for Constipation. Active Ketoconazole 2 % External CreamIndications:Ti anna pedis of left foot Apply topically to affected area 2 times a day. Apply to left foot 30 g 1 08/10/2024 09/09/2024 Active Gabapentin 600 MG Oral Tablet (Neurontin)Indicati ons:Type 2 diabetes mellitus with diabetic neuropathy, without long-term current use of insulin (HCC) TAKE ONE TABLET BY MOUTH THREE TIMES A DAY 270 Tablet 1 08/14/2024 08/14/2025 Active Apixaban 5 MG Oral Tablet (Eliquis)Indication s:Paroxysmal atrial fibrillation (HCC) Take 1 Tablet by mouth in the morning and 1 Tablet before bedtime. 180 Tablet 3 08/14/2024 Active documented as of this encounter (statuses as of 08/17/2024) Active Problems Problem Noted Date Diagnosed Date Aneurysm of ascending aorta without rupture 07/31 Last Assessment & Plan: Enlarged aortic root, 5 cm ascending aortic aneurysm via December 20, [address]-discussed with Cardiology and plan to manage conservatively. 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, without long-term current use of insulin 09/08/2017 S/P right coronary artery (RCA) stent placement 09/20/2016 Paroxysmal atrial fibrillation 05/17/2016 Last Assessment & Plan: Rate controlled today on metoprolol Continues apixaban stroke prophylaxis Idiopathic chronic gout of multiple sites kishoreou ana lilia reid 10/14/2014 Hx of nonmelanoma skin cancer 08/21/2012 Overview: L posterior shoulder BCC 12/2011 History of malignant melanoma of skin 08/16/2011 Overview: Back - , no SLN, unknown depth Hyperlipidemia associated with type 2 diabetes jeniffer pisano 09/11/2010 After cataract not obscuring vision 04/07/2009 Overview: ICD-10 update of inactive term documented as of this encounter (statuses as of 08/17/2024) Resolved Problems Problem Noted Date Diagnosed Date [...] 10/13/2018 02/15/2019 Coronary artery disease invo lving [place] heart without angina pectoris 06/01/2018 11/10/2021 DM type 2 causing neurological disease 01/24/2018 01/14/2021 Type 2 diabetes mellitus wit h diabetic nephropathy, without long-term current use of insulin 09/08/2017 09/08/2017 Atherosclerotic heart diseas e of [place] coronary artery with unspecified angina pectoris 09/08/2017 [...] as of this encounter (statuses as of 08/17/2024) Immunizations Name Administration Dates Next Due COVID-19 mRNA, LNP-s, No Pre serve, 2-Dose Series ([employer] [place]) 08/13/2021,01/22/2021,12/27/2020 Covid-19, Mrna, Lnp-s, Pf, B ivalent, 30 Mcg, IM, 12 yrs and above ([employer] [place]) 11/09/2022 Pneumococcal Conjugate Vacc, 13 Valent (Prevnar) [...] Sign Reading Time Taken Comments Blood Pressure 130/70 08/17/2024 11:37 AM EDT Pulse 67 08/17/2024 11:37 AM EDT Temperature 36.7 C (98 F) 08/17/2024 11:37 AM EDT Respiratory Rate - - Oxygen Saturation 97% 08/17/2024 11:37 AM EDT Inhaled Oxygen Concentration - - Weight - - Height - - Body Mass Index - - documented in this encounter Functional Status Functional [...] as of this encounter Progress Notes * Kristopher MarjorieANALI Kearns - 08/17/2024 10:45 AM EDT Images from the original note were not included. 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 No date set He continues atorvastatin and ASA #3 Hyperlipidemia associated with type 2 diabetes mellitus (HCC) #4 Abdominal aortic aneurysm (AAA) without rupture, unspecified part (HCC) Assessment & Plan: Followed by vascular #5 Aneurysm of ascending aorta without rupture (HCC) Assessment & Plan: Enlarged aortic root, 5 cm ascending aortic aneurysm via December 20, [address]-discussed with Cardiology and plan to manage conservatively. Additional Medical Decision Making: Unfortunately poor can activity that would not allow for video visit today. Visit completed telephonically. He plans to keep all scheduled appointments and no concerns today. He has GH number to call in meantime with questions or concerns. RN to monitor and will schedule provider in-person visit in the future. Check-out note: Scheduling-please schedule in-person provider visit with provider that covers the [facility]. Thank you Scheduled appointments in the next 60 days: Future Appointments-next 60 days Date/Time Provider Specialty Dept Phone 08/24/2024 11:00 AM (Arrive by 10:45 AM) Caren Hernandez PA-C Cardiology [phone] 09/03/2024 12:20 PM (Arrive by 12:05 PM) Jeb Iraheta MD Pain Medicine [phone] 09/04/2024 8:30 AM Dhara Sky RN [facility] [phone] 09/25/2024 8:20 AM (Arrive by 8:05 AM) Itzel Sloan PA-C Family Medicine [phone] 10/25/2024 7:00 AM Radha, [facility] [phone] 11/01/2024 11:40 AM (Arrive by 11:25 AM) Yury Cash MD Family Medicine [phone] 11/21/2024 8:30 AM (Arrive by 8:15 AM) Sajan Griffith PA-C Cardiology [phone] 05/29/2025 9:45 AM Constantino Weber, Ophthalmology [phone] A total of 0 minutes was spent face to face (via video-based telemedicine if designated as a telemedicine visit) 8 minutes telephonic This note was verbally transcribed via dictation system and spelling/word errors can occur. Please contact the undersigned for any clarification/correction regarding dictated information if needed. Subjective Subjective Is this a Telemedicine Visit? Yes, Patient location: HOME. I was not in a hospital or clinic location. After connecting through televideo, patient was verified with two unique identifiers. 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 Methods to assure confidentiality were taken. Patient acknowledged consent and understanding of privacy and security of the Telemedicine visit. The patient agreed to participate. Reason For [facility] Visit: Follow-Up Current Concerns: Gomez Suarez is a 88 year old male seen today for a [facility] provider visit. PMH--CAD status post stent, atrial fib, DLD, CKD 3, PVD [facility] 07/30-08/02/24--presented with generalized weakness and coolness of left lower extremity. He was short of breath and found to have atrial fib with RVR as well as cellulitis of the left lower extremity. Given ceftriaxone and increasing doses metoprolol succinate-100 mg twice daily. Heartrate did show improvement. He required dose of IV Lasix for shortness of breath and started on Lasix 40 mg daily. Cellulitis showed significant improvement in transitioned to cefdinir to complete treatment for cellulitis. PT and OT recommended home health nursing PT and OT on discharge. PCP 08/06/2024-sent to ED for left-sided chest pain exacerbated by cough and deep breathing. Seen in ED 08/06/2024-treated for cellulitis with doxy and Keflex-CT for PE negative, no evidence DVT Seen again at PCP office 08/10/2024 and noted improvement of cellulitis on Keflex and doxy. Hospital follow up with PCP 08/14/2024-noted patient seeing vascular surgeon at [facility] for pain in the left lower extremity that was chronic Followed by Cardiology with last appointment in April-CAD, P AFib, mild valvular disease, enlarged aortic root, 5 cm ascending aortic aneurysm via December 20, [address]-discussed and plan to manage conservatively. Today's concerns are: No concerns today. Denies any fevers or chills. Reports he has some pain in his toes and saw vascular yesterday and they are planning on surgery/angioplasty on the extremity. Nodate set at this time. Denies any open areas on the foot. Denies increased shortness of breath or swelling. Additional I have reviewed the following results: Current Outpatient Medications Medication Sig Dispense Refill Acetaminophen 500 MG Oral Tablet (Tylenol) Take 1 Tablet by mouth every 6 hours as needed. Allopurinol 300 MG Oral Tablet (Zyloprim) TAKE ONE TABLET BY MOUTH EVERY DAY (Patient taking differently: Take 1 Tablet by mouth every afternoon.) 90 Tablet 3 Apixaban 5 MG Oral Tablet (Eliquis) Take 1 Tablet by mouth in the morning and 1 Tablet before bedtime. 180 Tablet 3 aspirin enteric coated 81 MG TBEC Take 1 Tablet by mouth in the morning. Atorvastatin Calcium 40 MG Oral Tablet (Lipitor) TAKE ONE TABLET BY MOUTH EVERY DAY (Patient takingdifferently: every afternoon.) 100 Tablet 1 Bisacodyl 10 MG Rectal Suppository (Dulcolax) Administer 1 Suppository into the rectum daily as needed for Constipation. Doxycycline Hyclate 100 MG Oral Capsule Take 1 Capsule by mouth in the morning and 1 Capsule beforebedtime. Do all this for 12 days. 24 Capsule 0 Furosemide 40 MG Oral Tablet (Lasix) Take 1 Tablet by mouth in the morning. 30 Tablet 3 Gabapentin 600 MG Oral Tablet (Neurontin) TAKE ONE TABLET BY MOUTH THREE TIMES A DAY 270 Tablet 1 Ketoconazole 2 % External Cream Apply topically to affected area 2 times a day. Apply to left foot 30 g 1 metFORMIN HCl ER 500 MG Oral Tablet Extended Release 24 Hour (Glucophage XR) Take 2 Tablets by mouth 2 times a day with morning and evening meals. 400 Tablet 1 Metoprolol Succinate ER 100 MG Oral Tablet Extended Release 24 Hour (toPROL XL) Take 1 Tablet by mouth in the morning and 1 Tablet before bedtime. 60 Tablet 3 Multiple Vitamin (ONE-A-DAY MENS) Tablet Take 1 Tablet by mouth in the morning. Myrbetriq 50 MG Oral Tablet Extended Release 24 Hour Take 1 Tablet by mouth in the morning. In the morning.. Omeprazole 20 MG Oral Capsule Delayed Release (PriLOSEC) TAKE 1 CAPSULE BY MOUTH IN THE MORNING. TAKE 1 HOUR BEFORE THE FIRST MEAL OF THE DAY. (Patient taking differently: Take 1 Capsule by mouth every other day.) 90 Capsule 2 ONETOUCH DELICA LANCETS FINE MISC Check blood sugars once daily, E11.9, not using insulin, (Patientnot taking: Reported on 08/10/2024) 100 Each 3 Connexin SoftwareTouch Ultra 2 w/Device Kit Check blood sugars once daily (Patient not taking: Reported on 08/10/2024) 1 Kit 0 OneTouch Ultra Blue In Vitro Strip (Glucose Blood) USE 1 STRIP TO CHECK GLUCOSE ONCE DAILY, dx E11.40 (Patient not taking: Reported on 08/10/2024) 100 Strip 3 No current facility-administered medications for this visit. Objective Objective Vitals: 08/17/24 1137 Temp: 36.7 C (98 F) Pulse: 67 SpO2: 97% BP: 130/70 Last Weights: Wt Readings from Last 3 Encounters: 08/14/24 97.5 kg (215 lb) 08/10/24 98 kg (216 lb) 08/06/24 98.4 kg (217 lb) Last BPs: BP Readings from Last 4 Encounters: 08/17/24 130/70 08/14/24 122/62 08/10/24 124/56 08/07/24 120/64 No video for physical exam today Component Latest Ref Rng 08/14/2024 WBC 4.00 - 10.80 K/uL 5.54 RBC 4.50 - 5.25 M/uL 4.76 HGB 14.0 - 16.8 g/dL 12.2 (L) HCT 40.0 - 48.4 % 39.9 (L) MCV 82.0 - 99.5 fL 83.8 MCH 27.0 - 34.0 pg 25.6 MCHC 32.0 - 36.0 g/dL 30.6 RDW 11.5 - 15.5 % 17.1 PLT 140 - 400 K/uL 303 Component Latest Ref Rng 08/14/2024 BUN 6 - 20 mg/dL 11 CREATININE 0.6 - 1.2 mg/dL 1.0 EGFR >=60 mL/min 77 SODIUM 135 - 146 mmol/L 139 POTASSIUM 3.5 - 5.1 mmol/L 4.4 CHLORIDE 98 - 107 mmol/L 96 (L) CO2 22 - 32 mmol/L 30 ANION GAP 7 - 15 mmol/L 13 GLUCOSE 70 - 120 mg/dL 129 (H) CALCIUM 8.4 - 10.2 mg/dL 10.2 Component Latest Ref Rng 08/14/2024 Hemoglobin A1C 4.0 - 5.6 % 8.1 (H) Estimated Average Glucose <126 mg/dL 186 (H) Legend: (H) High Legend: (L) Low (H) High Legend: (L) Low ANALI Cordova 10:45 AM * Masha Rutledge, Community Health Machine Bobbin Winder - 08/17/2024 10:38 AM EDT Telemedicine visit: Yes Patient location: HOME. I was not in a hospital or clinic location. After connecting through televideo, patient was verified with two unique identifiers. 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 Methods to assure confidentiality were taken. Patient acknowledged consent and understanding of privacy and security of the Telemedicine visit. The patient agreed to participate. Community Health Machine Bobbin Winder (FELI) documentation: CHW facilitated telehealth apt with provider Marjorie Summers CHW was unable to successfully connect to tamyca or the toll service observer so provider had to call patient Masha Rutledge- Community Health Worker 1 Support Services/[facility] [employer] [email or web address] documented in this encounter Miscellaneous Notes * Assessment & Plan Note - Marjorie Summers CRNP - 08/17/2024 11:54 AM EDT Associated Problem(s): Aneurysm of ascending aorta without rupture (HCC) Enlarged aortic root, 5 cm ascending aortic aneurysm via December 20, [address]-discussed with Cardiology and plan to manage conservatively. * Assessment & Plan Note - Marjorie Summers CRNP - 08/17/2024 11:53 AM EDT Associated Problem(s): Abdominal aortic aneurysm (AAA) without rupture (HCC) Followed by vascular * Assessment & Plan Note - Marjorie Summers CRNP - 08/17/2024 11:53 AM EDT Associated Problem(s): Unspecified atherosclerosis of [place] arteries of extremities, bilateral legs (HCC) He reports he saw vascular yesterday and plans for surgical procedure/angioplasty to the affected extremity. No date set He continues atorvastatin and ASA * Assessment & Plan Note - Marjorie Summers CRNP - 08/17/2024 11:52 AM EDT Associated Problem(s): Paroxysmal atrial fibrillation (HCC) Rate controlled today on metoprolol Continues apixaban stroke prophylaxis documented in this encounter Plan of Treatment Upcoming Encounters Date Type Department Care Team (Late st Contact Info) Description 08/24/2024 11:00 AM EDT Office Visit Cardiology, [facility] [address] [place] [address] Caren Hernandez PA-C [address] [facility] [place] [address] 09/03/2024 12:20 PM EST Office Visit Interventional Pain Center, [facility] [address] [place] [address] Jeb Iraheta MD [address] [facility] [place] [address] 09/04/2024 8:30 AM EST Home Visit [facility] [address] [place] [address] Dhara Sky, CHRIS [address] [facility] [place] [address] 09/25/2024 8:20 AM EST Office Visit [address] [phone] Itzel Sloan PA-C [address] [place] [phone] 10/25/2024 7:00 AM EST Laboratory [facility] [phone] [address] 11/01/2024 11:40 AM EST Office Visit [address] [phone] Yury Cash MD [address] [place] [phone] 11/21/2024 8:30 AM EST Office Visit Cardiology, [facility] [address] [place] [address] Sajan Griffith PA-C [address] [facility] [place] [address] 05/29/2025 9:45 AM EDT Office Visit [facility] [address] [place] [address] Constantino Weber DO [address] [place] [address] Health Maintenance Due Date Last Done Comments [...] fibrillation (HCC)- Primary Atrial fibrillation Atherosclerosis of [place] artery of both lower extremities with other clinical manifestation (HCC) Hyperlipidemia associated with type 2 diabetes mellitus (HCC) Abdominal aortic aneurysm (AAA) without rupture, unspecified part (HCC) Aneurysm of ascending aorta without rupture (HCC) documented in this encounter Advance Directives [...] the patient have Health Care Power of Intern? Yes, not currently available Care Teams Scrap Crane Operator Relationship Specialty Start Date End Date Yury Cash MD [address] [place] [phone] PCP - General Family Medicine 07/19/24 documented as of this encounter
--- OUTSIDE RECORDS SUMMARY | 2024-11-07 08:02 | External Medical Summary | Summary of Care ---
Author Name Unknown Organization [facility] Address [address] [place] [address] Phone [phone] Care Team Providers Care Child Life Assistant Name Role Phone Yury Cash MD [facility] [place] Encounter Details Date Type Department Care Team (Late st Contact Info) Description 09/04/2024 8:30 AM EST [facility] Visit [facility] [address] [place] [address] Dhara Sky, RN [address] [place] [address] Allergies No known active allergiesdocumented as of this encounter (statuses as of 09/06/2024) Medications Medication Sig Dispensed Refills Start Date End Date Status aspirin enteric coated 81 MG TBEC Take 1 Tablet by mouth in the morning. 05/14/2016 Active ONETOUCH DELICA LANCETS FINE MISC Check blood sugars once daily, E11.9, not using insulin, 100 Each 3 11/24/2018 Active Multiple Vitamin (ONE-A-DAY MENS) Tablet Take 1 Tablet by mouth in the morning. Active OneTouch Ultra Blue In Vitro Strip (Glucose Blood) USE 1 STRIP TO CHECK GLUCOSE ONCE DAILY, dx E11.40 100 Strip 3 10/04/2021 Active Allopurinol 300 MG Oral Tablet (Zyloprim) TAKE ONE TABLET BY MOUTH EVERY DAY 90 Tablet 3 11/17/2023 11/16/2024 Active Additional Information Patient taking differently: 300 mg Oral [id number], Reported on 08/10/2024 Omeprazole 20 MG Oral [...] without long-term current use of insulin ([facility]) Take 2 Tablets by mouth 2 times a day with morning and evening meals. 400 Tablet 1 01/10/2024 Active Myrbetriq 50 MG Oral Tablet Extended Release 24 Hour Take 1 Tablet by mouth in the morning. In the morning.. 11/19/2023 Active Cloudadmin 2 w/Device Kit Check blood sugars once daily 1 Kit 01/31/2024 Active Atorvastatin Calcium 40 MG Oral Tablet (Lipitor)Indication s:Dyslipidemia, goal LDL below 100 TAKE ONE TABLET BY MOUTH EVERY DAY 100 Tablet 1 07/16/2024 Active Additional Information Patient taking differently: [id number], Reported on 08/14/2024 Metoprolol Succinate ER 100 MG Oral Tablet Extended Release 24 Hour (toPROL XL) Take 1 Tablet by mouth in the morning and 1 Tablet before bedtime. 60 Tablet 3 08/02/2024 Active Furosemide 40 MG Oral Tablet (Lasix) Take 1 Tablet by mouth in the morning. 30 Tablet 3 08/03/2024 Active Acetaminophen 500 MG Oral Tablet (Tylenol) [...] as of this encounter (statuses as of 09/06/2024) Active Problems Problem Noted Date Diagnosed Date Paroxysmal A-fib 08/29/2024 Coronary artery disease invo [place]ving [place] coronary artery of [place] heart without angina pectoris 08/29/2024 Nonrheumatic aortic [...] to breakdown of skin 09/27/2023 Atherosclerosis of [place] co ronary artery without angina pectoris 02/09/2023 [...] Plan: Followed by vascular Unspecified atherosclerosis of [place] arteries of extremities, bilateral legs 02/15/2019 Last [...] melanoma of skin 08/16/2011 Overview: Back - 1989's, no SLN, unknown depth Dyslipidemia, goal LDL below 70 09/11/2010 After cataract not obscuring vision 04/07/2009 Overview: ICD-10 update of inactive term documented as of this encounter (statuses as of 09/06/2024) Resolved Problems Problem Noted Date Diagnosed Date [...] 10/13/2018 02/15/2019 Coronary artery disease invo lving [place] heart without angina pectoris 06/01/2018 11/10/2021 DM type 2 causing neurological disease 01/24/2018 01/14/2021 Type 2 diabetes mellitus wit h diabetic nephropathy, without long-term current use of insulin 09/08/2017 09/08/2017 Atherosclerotic heart diseas e of [place] coronary artery with unspecified angina pectoris 09/08/2017 [...] as of this encounter (statuses as of 09/06/2024) Immunizations Name Administration Dates Next Due COVID-19 mRNA, LNP-s, No Pre serve, 2-Dose Series ([employer]) 08/13/2021,01/22/2021,12/27/2020 Covid-19, Mrna, Lnp-s, Pf, B ivalent, [...] Sign Reading Time Taken Comments Blood Pressure 134/68 09/04/2024 10:19 AM EST recheck at end of visit Pulse 67 09/04/2024 9:43 AM EST Temperature 36.7 C (98 F) 09/04/2024 9:4 3 AM EST Respiratory Rate 18 09/04/2024 9:43 AM EST Oxygen Saturation 95% 09/04/2024 9:4 3 AM EST Inhaled Oxygen Concentration - - [...] as of this encounter Progress Notes * Dhara Sky RN - 09/04/2024 10:15 AM EST Current Concerns: Pt seen for return RNCM visit Denies pain today Had procedure for left LE PVD last week and has f/u tomorrow Per notes, will f/u and check effectiveness of procedure and if ineffective may need bypass done Has some purple/black area of left 3rd toe - states it has not been getting any worse - it does have discomfort at times, tender to touch Reports pain is sometimes in 4th toe also but no areas noted on that toe and color is WNL Physical Exam: Physical Exam Constitutional: General: He is not in acute distress. Cardiovascular: Rate and Rhythm: Normal rate and regular rhythm. Pulses: Normal pulses. Heart sounds: Normal heart sounds. Pulmonary: Effort: Pulmonary effort is normal. Breath sounds: Normal breath sounds. Abdominal: General: Bowel sounds are normal. Palpations: Abdomen is soft. Musculoskeletal: Right lower leg: Edema (trace) present. Left lower leg: Edema (trace) present. Skin: General: Skin is warm and dry. Neurological: Mental Status: He is alert and oriented to person, place, and time. Review of Systems: Care Plan Goal Progress: Patient's pain & discomfort is manageable. (Progressing) Start: 08/07/24 Expected End: 11/30/24 Patient will remain free from injury. (Progressing) Start: 08/07/24 Expected End: 11/30/24 Orders Placed: No orders of the defined types were placed in this encounter. Medications Given: Care Gaps: Care Gaps Care gaps closed this contact:: Education;Medications;Plan of Care (POC) (09/04/24 1020) Type of education: Clinical/disease (09/04/24 1020) Type of medication care gap: Medication adherence (09/04/24 1020) Type of plan of care (POC) care gap: Adjustment of plan of care (POC) and/or Integrated Care Plan (ICP);Education and review of exacerbation plan (09/04/24 1020) documented in this encounter Plan of Treatment Upcoming Encounters Date Type Department Care Team (Late st Contact Info) Description 09/20/2024 11:00 AM EST Home Visit [facility] [address] [facility] [place] [address] Duane Masterson PA-C [address] [place] [address] 09/25/2024 8:20 AM EST Office Visit [facility] [address] [place] [phone] Itzel Sloan PA-C [address] [place] [phone] 10/09/2024 8:30 AM EST Home Visit [facility] [address] [place] [address] Dhara Sky, RN [address] [place] [address] 10/25/2024 7:00 AM EST [facility], [address] [phone] [facility] [address] [place] [id number] 11/01/2024 11:40 AM EST Office Visit [facility] [address] [place] [phone] Yury Cash MD [address] [place] [phone] 11/21/2024 8:30 AM EST Office Visit Cardiology, [facility] [address] [place] [address] Sajan Griffith PA-C [address] [place] [address] 05/29/2025 9:45 AM EDT [facility] Visit 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 Yes, not currently available Care Teams Child Life Assistant Relationship Specialty Start Date End Date Yury Cash MD [address] [place] [phone] PCP - General Family Medicine 07/19/24 documented as of this encounter
--- OUTSIDE RECORDS SUMMARY | 2024-11-07 08:02 | External Medical Summary | Summary of Care ---
Author Name Unknown Organization [facility] Address [address] [place] [address] Phone [phone] Care Team Providers Care Furniture Rental Consultant Name Role Phone Yury Cash MD Primary Care [facility] Reason for Visit * Reason Comments Follow Up Encounter Details Date Type Department Care Team (Late st Contact Info) Description 08/24/2024 11:00 AM EDT Office Visit Cardiology, [facility] [address] [place] [address] Caren Hernandez PA-C [address] [place] [address] Paroxysmal A-fib (HCC)*; Nonrheumatic aortic valve stenosis; Coronary artery disease involving [place] coronary artery of [place] heart without angina pectoris; Ascending aorta enlargement (HCC); S/P right coronary artery (RCA) stent placement; Dyslipidemia, goal LDL below 70 Allergies No known active allergiesdocumented as of this encounter (statuses as of 08/29/2024) Medications Medication Sig Dispensed Refills Start Date End Date Status aspirin enteric coated 81 MG TBEC Take 1 Tablet by mouth in the morning. 05/14/2016 Active ONETOUCH JOSHUA LANCMELANI VERA MISC Check blood sugars once daily, E11.9, [...] Information Patient taking differently: 300 mg Oral [id number], Reported on 08/10/2024 Omeprazole 20 MG Oral [...] the morning. In the morning.. 11/19/2023 Active Lumenis Ultra 2 w/Device Kit Check blood sugars once daily 1 Kit 01/31/2024 Active Additional Information Patient not taking.Reported on 08/10/2024 Atorvastatin Calcium 40 MG Oral Tablet (Lipitor)Indication s:Dyslipidemia, goal LDL below 100 TAKE ONE TABLET BY MOUTH EVERY DAY 100 Tablet 1 07/16/2024 Active Additional Information Patient taking differently: [id number], Reported on 08/14/2024 Metoprolol Succinate ER 100 [...] as of this encounter (statuses as of 08/29/2024) Active Problems Problem Noted Date Diagnosed Date Paroxysmal A-fib 08/29/2024 Coronary artery disease invo lving [place] coronary artery of [place] heart without angina pectoris 08/29/2024 Nonrheumatic aortic [...] to breakdown of skin 09/27/2023 Atherosclerosis of [place] co ronary artery without angina pectoris 02/09/2023 [...] Plan: Followed by vascular Unspecified atherosclerosis of [place] arteries of extremities, bilateral legs 02/15/2019 Last [...] chronic gout of multiple sites withou t tophus 10/14/2014 Hx of nonmelanoma skin cancer 08/21/2012 Overview: L posterior shoulder BCC 12/2011 History of malignant melanoma of skin 08/16/2011 Overview: Back - , no SLN, unknown depth Dyslipidemia, goal LDL below 70 09/11/2010 After cataract not obscuring vision 04/07/2009 Overview: ICD-10 update of inactive term documented as of this encounter (statuses as of 08/29/2024) Resolved Problems Problem Noted Date Diagnosed Date [...] 10/13/2018 02/15/2019 Coronary artery disease invo lving [place] heart without angina pectoris 06/01/2018 11/10/2021 DM type 2 causing neurological disease 01/24/2018 01/14/2021 Type 2 diabetes mellitus wit h diabetic nephropathy, without long-term current use of insulin 09/08/2017 09/08/2017 Atherosclerotic heart diseas e of [place] coronary artery with unspecified angina pectoris 09/08/2017 [...] as of this encounter (statuses as of 08/29/2024) Immunizations Name Administration Dates Next Due COVID-19 mRNA, LNP-s, No Pre serve, 2-Dose Series (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[employer]) 08/13/2021,01/22/2021,12/27/2020 Covid-19, Mrna, Lnp-s, Pf, B ivalent, 30 Mcg, IM, 12 yrs and above (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[employer]) 11/09/2022 Pneumococcal Conjugate Vacc, 13 Valent (Prevnar) [...] Cigars Smokeless Tobacco: Never Tobacco Cessation:Counseling Given: Not [...] Sign Reading Time Taken Comments Blood Pressure 112/58 08/24/2024 10:56 AM EDT Pulse 72 08/24/2024 10:56 AM EDT Temperature - - Respiratory Rate - - Oxygen Saturation 94% 08/24/2024 10:56 AM EDT Inhaled Oxygen Concentration - - Weight 98.9 kg (218 lb) 08/24/2024 10:56 AM EDT Height - - Body Mass Index 31.28 08/06/2024 9:11 AM EDT documented in this [...] as of this encounter Progress Notes * Caren Hernandez PA-C - 08/24/2024 11:04 AM EDT Cardiology F/U: History of Present Illness The patient is an 88-year-old male who presents today for routine cardiology f/u. Last clinic evaluation approx 3 months ago with Bonita Griffith PA-C He was recently admitted to the hospital in July 2024 due to weakness. During the hospital stay,the patient was found to have atrial fibrillation with rapid ventricular response and an elevated white blood cell count. There were concerns about cellulitis in the left lower extremity, for which he was started on ceftriaxone. The patient's symptoms improved with medication adjustments and physical therapy. Upon discharge, the patient was prescribed Furosemide 40 mg daily and Metoprolol 100 mg twice daily. As an outpatient, the patient was started on Eliquis 5 mg twice daily by his primary care physician. The patient has normal kidney function and stable hemoglobin levels. The patient has not experienced any bleeding problems since starting Eliquis and has not had any falls. The patient denies any chest pain, breathing difficulties, dizziness, lightheadedness, heart racing, or fluid retention. History includes: Coronary artery disease status post drug-eluting stent placement to the mid-RCA at [facility] in May 2016. Paroxysmal atrial fibrillation - on Eliquis and metoprolol Mild valvular disease. Enlarged aortic root 4.5 cm via December 2023 resting echocardiogram 5.0 cm ascending aortic aneurysm via December [address]- conservative management Hypertension Dyslipidemia. Peripheral vascular disease, status post right popliteal to common plantar bypass grafting in January2024. Followed by [facility]. Upcoming repeat intervention planned on right leg Type 2 diabetes mellitus Stage 3 chronic kidney disease Anemia. Review of Systems: See HPI for pertinent positives. All others negative, other than those noted in HPI. Patient Active Problem List Diagnosis After cataract not obscuring vision Hyperlipidemia associated with type 2 diabetes mellitus (HCC) History of malignant melanoma of skin Hx of nonmelanoma skin cancer Idiopathic chronic gout of multiple sites without tophus Paroxysmal atrial fibrillation (HCC) S/P right coronary artery (RCA) stent placement Type 2 diabetes mellitus with diabetic neuropathy, without long-term current use of insulin (HCC) Unspecified atherosclerosis of [place] arteries of extremities, bilateral legs (HCC) Abdominal aortic aneurysm (AAA) without rupture (HCC) CKD (chronic kidney disease) stage 2, GFR 60-89 ml/min 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 (HCC) Atherosclerosis of [place] coronary artery without angina pectoris Skin ulcer of right ankle, limited to breakdown of skin (HCC) History of tonsillectomy Hypomagnesemia PVD (peripheral vascular disease) (HCC) Type 2 myocardial infarction (HCC) Aneurysm of ascending aorta without rupture (HCC) Past Surgical History: Procedure Laterality Date COLONOSCOPY [...] performed by Bharath Monaco MD at [place] [facility] REMOVAL OF TONSILS, UNDER AGE 13 approx age 11 SACROILIAC JOINT INJECT W/GUIDANCE Bilateral 05/09/2023 INJECTION SACROILIAC JOINT performed by Roberto Li DO at OR [facility] SACROILIAC JOINT INJECT W/GUIDANCE Bilateral 09/29/2023 INJECTION SACROILIAC JOINT performed by Roberto Li DO at OR [facility] Family History Problem Relation Name Age of Onset Cancer Uncle (Unspecified) Cancer Son unknown Diabetes Daughter Other (Denies family history of AAA) Other Family Status Relation Status Mo at age 93 heart Fa at age 21 Son Alive Son Alive Son Alive Gold Alive Bro Alive Bro Alive UNCLE (Not Specified) Son (Not Specified) Gold (Not Specified) Other (Not Specified) Social History Tobacco Use Smoking status: Former Current packs/day: 0.00 Average packs/day: 1 pack/day for 37.0 years (37.0 ttl pk-yrs) Types: Cigarettes, Cigars Start date: 10/31/1952 Quit date: 10/31/1989 Years since quittin.8 Smokeless tobacco: Never Tobacco comments: Started smoking age - 17 - 18 Vaping Use Vaping status: Never Used Substance Use Topics Alcohol use: No Drug use: Never Review of patient's allergies indicates: No Known Allergies Current Outpatient Medications Medication Sig Dispense Refill aspirin enteric coated 81 MG TBEC Take 1 Tablet by mouth in the morning. Multiple Vitamin (ONE-A-DAY MENS) Tablet Take 1 Tablet by mouth in the morning. Allopurinol 300 MG Oral Tablet (Zyloprim) TAKE [...] mouth in the morning. In the morning.. Atorvastatin Calcium 40 MG Oral Tablet (Lipitor) [...] the rectum daily as needed for Constipation. Ketoconazole 2 % External Cream Apply topically to affected area 2 times a day. Apply to left foot 30 g 1 Gabapentin 600 MG Oral Tablet (Neurontin) TAKE ONE TABLET BY MOUTH THREE TIMES A DAY 270 Tablet 1 Apixaban 5 MG Oral Tablet (Eliquis) Take 1 Tablet by mouth in the morning and 1 Tablet before bedtime. 180 Tablet 3 ONETOUCH DELICA LANCETS [facility] Check blood sugars once daily, E11.9, not using insulin, (Patientnot taking: Reported on 08/10/2024) 100 Each 3 OneTouch Ultra Blue In Vitro Strip (Glucose Blood) USE 1 STRIP TO CHECK GLUCOSE ONCE DAILY, dx E11.40 (Patient not taking: Reported on 08/10/2024) 100 Strip 3 OneTouch Ultra 2 w/Device Kit Check blood sugars once daily (Patient not taking: Reported on 08/10/2024) 1 Kit 0 No current facility-administered medications for this visit. OBJECTIVE/PHYSICAL EXAMINATION: BP 112/58 | Pulse 72 | Wt 98.9 kg (218 lb) | SpO2 94% | BMI 31.28 kg/m | BSA 2.21 m General: Alert and oriented x3. No acute distress. Pleasant. Comfortable. Cooperative. Skin: No rash Eyes: PER. Conjunctiva pink, sclera clear. HEENT: Normocephalic. Atraumatic. Neck: Bilateral carotid bruits. No JVD. Heart: RRR. Grade II-III/ systolic ejection murmur. No diastolic murmur Lungs: Clear to auscultation. No wheeze. No rales. No rhonchi Abdomen: +BS. Soft. Nontender. No masses. No organomegaly. Extremities: no significant edema Limited neurological examination: No focal deficit. Data: EKG performed today and reviewed personally: Sinus rhythm with frequent Premature ventricular complexes Left axis deviation Right bundle branch block Inferior infarct , age undetermined Abnormal ECG When compared with ECG of 06-Aug-2024 11:24, Sinus rhythm has replaced Atrial fibrillation Vent. rate has decreased by 54 bpm Left posterior fascicular block is no longer Present T wave inversion no longer evident in Anterior leads January 23, 2024 TTE Interpretation Summary (as per Dr. Godinez): The qualitative LV ejection fraction is 65-69% (normal). The LV wall thickness is moderately increased (concentric). The left atrium is severely enlarged (>48 ml/m^2,). The aortic valve has three leaflets. The aortic valve is moderately calcified. Mild aortic valve stenosis is present. Mild aortic valve regurgitation is present. T here is severe mitral annular calcification. The mitral valve leaflets thickness is moderately increased. Mild mitral stenosis is present. Mild mitral regurgitation is present. The aortic root is moderately enlarged, 4.5 cm. The ascending aorta is moderately enlarged, 4.5 cm. Compared to last available study changes are noted as follows: Mild mitral stenosis is present Assessment & Plan Atrial Fibrillation Recent hospitalization for Afib with RVR, now in normal sinus rhythm. Metoprolol increased to 100 mg BID during hospitalization. Eliquis 5 mg BID started by PCP for stroke prevention. No recent fallsor bleeding. -Continue Metoprolol 100 mg BID and Eliquis 5 mg BID. -Ensure Metoprolol is taken on the morning of upcoming surgery. Peripheral Vascular Disease Upcoming left lower extremity procedure with Dr. Pfeiffer in [place]. Right lower extremity procedure previously performed with improvement. Noted blackening of a toe on the left foot. -Continue current management and proceed with planned procedure. HFpEF -appears euvolemic Given Furosemide 40 mg daily during recent hospitalization for volume status. No current symptoms of fluid retention. -Continue Furosemide 40 mg daily. Mild -repeat echo at 1 year interval Enlarged aortic root and ascending aorta -monitor. Conservative therapies recommended CAD -no anginal complaints -Continue ASA, statin, metoprolol The patient is to continue all current medications as listed above. No changes were made at today'svisit. Patient is being evaluated in the cardiology office for ongoing care/risk management for CAD; PAF; ; HTN; dyslipidemia; PVD I spent a total of 30 minutes on the date of service in preparation, delivery, and documentation ofthe care provided to Gomez Suarez excluding any time spent in the performance of separately billedservices. The patient agrees to the above plan and will call with additional questions or concerns. ER with all emergencies advised. Check-out note: Keep f/u as scheduled with Sajan Hernandez PA-C Department of Cardiology Text in this note was generated using an ambient documentation service. I discussed the use of a device to record and summarize our discussion today. All persons present during the encounter consented to its use. This chart was completed in part utilizing [employer] Speech Voice Recognition Software. Grammatical errors, random word insertions, prounoun errors, and incomplete sentences are an occasional consequence of this system due to software limitations, ambient noise, and hardware issues. Any formal questions or concerns about the content, text, or information contained within the body of this dictation should be directly addressed to the provider for clarification. documented in this encounter Procedure Notes * Alberto Hendricks MD - 08/24/2024 11:04 AM EDTAssociated Order(s): EKG REASON FOR STUDY: a fib;a fib CONCLUSIONS: Sinus rhythm with frequent Premature ventricular complexes Left axis deviation Right bundle branch block Inferior infarct , age undetermined Abnormal ECG When compared with ECG of 06-Aug-2024 11:24, Sinus rhythm has replaced Atrial fibrillation Vent. rate has decreased by 54 bpm Left posterior fascicular block is no longer Present T wave inversion no longer evident in Anterior leads Ventricular Rate: 70 Atrial Rate: 70 MT Interval: 172 QRS Duration: 146 QT/QTc: 458/494 ms P-R-T Castle: 83 : -76 : -4 degrees documented in this encounter Nursing Notes * Lisy Velasquez CMA - 08/24/2024 10:55 AM EDT Examination Room: 1 Name: oGmez Suarez Date of : (1935) Reason for Visit: HD Interim Hospitalization(s): 08/06 A FIB with RVR Problems/Concerns: denied Chest Pain/SOB: denied [facility] is a way you can talk to your provider online through e-mail. Would you like to sign up? I can activate it for you? ALREADY ACTIVE Patient was instructed to not get up on the exam table until directed and assisted by their provider; patient is to remain seated in the chair/ wheelchair/ exam table for fall prevention and safety reasons. Patient is aware to have assistance to step down off exam table with personnel. Patient voiced full comprehension of instructions. documented in this encounter Plan of Treatment Upcoming Encounters Date Type Department Care Team (Late st Contact Info) Description 09/04/2024 8:30 AM EST [facility] [address] [address] Dhara Sky RN [address] [place] [address] 09/20/2024 11:00 AM EST [facility] [place] [address] Duane Masterson PA-C [address] [place] [address] 09/25/2024 8:20 AM EST Office Visit [address] [phone] Itzel Sloan PA-C [address] [place] [address] 10/25/2024 7:00 AM EST Laboratory [facility] [phone] [facility] [address] [place] [address] 11/01/2024 11:40 AM EST Office Visit [address] [phone] Yury Cash MD [address] [place] [phone] 11/21/2024 8:30 AM EST Office Visit Cardiology, [facility] [place] [address] Sajan Griffith PA-C [facility] [place] [address] 05/29/2025 9:45 AM EDT Office Visit [facility] [address] [place], [place] [id number] Constantino Weber DO [address] [facility] [place] [address] Health Maintenance Due Date Last Done Comments [...] Procedure Name Priority Date/Time Associated Diagnosis Comments MT ECG ROUTINE ECG W/LEAST 12 LDS W/I&R Routine 08/24/2024 11:04 AM EDT Paroxysmal A-fib (HCC) documented in this encounter Results * EKG (08/24/2024 11:04 AM EDT) 08/24/2024 11:0 4 AM EDT Narrative Procedure Note Alberto Hendricks MD - 08/24/2024 11:04 AM EDT REASON FOR STUDY: a fib;a fib CONCLUSIONS: Sinus rhythm with frequent Premature ventricular complexes Left axis deviation Right bundle branch block Inferior infarct , age undetermined Abnormal ECG When compared with ECG of 06-Aug-2024 11:24, Sinus rhythm has replaced Atrial fibrillation Vent. rate has decreased by 54 bpm Left posterior fascicular block is no longer Present T wave inversion no longer evident in Anterior leads Ventricular Rate: 70 Atrial Rate: 70 MT Interval: 172 QRS Duration: 146 QT/QTc: 458/494 ms P-R-T Castle: 83 : -76 : -4 degrees Caren Hernandez PA-C EKG [facility] documented in this encounter Visit Diagnoses Diagnosis Paroxysmal A-fib (HCC)- Primary Atrial fibrillation Nonrheumatic aortic valve stenosis Aortic valve disorders Coronary artery disease involving [place] coronary artery of [place] heart without angina pectoris Ascending aorta enlargement (HCC) Other specified disorders of arteries and arterioles S/P right coronary artery (RCA) stent placement Dyslipidemia, goal LDL below 70 Other and unspecified hyperlipidemia documented in this encounter Advance Directives * [...] the patient have Health Care Power of [employer]? Yes, not currently available Care Teams Furniture Rental Consultant Relationship Specialty Start Date End Date Yury Cash MD [address] [place] [phone] PCP - General Family Medicine 07/19/24 documented as of this encounter"
--- OUTSIDE RECORDS SUMMARY | 2024-11-07 08:02 | External Medical Summary | Summary of Care ---
Author Name Unknown Organization [facility] [address] [facility] [address] Phone [phone] Care Team Providers Care Engine Lathe Tender Name Role Phone Yury Cash MD [facility] Encounter Details Date Type Department Care Team (Late st Contact Info) Description 09/06/2024 Population Health External Data Unspecified Department Allergies No known active allergiesdocumented as of this encounter (statuses as of 09/07/2024) Medications aspirin enteric coated 81 MG TBEC [...] Information Patient taking differently: 300 mg Oral [id number], Reported on 08/10/2024 Omeprazole 20 MG Oral [...] the morning. In the morning.. 4 Active Fiestah 2 w/Device Kit Check blood sugars once daily 1 Kit 01/31/2024 11:32 AM EDT 4 Active Atorvastatin Calcium 40 MG Oral Tablet (Lipitor)Indicat ions:Dyslipidemi a, goal LDL below 100 TAKE ONE TABLET BY MOUTH EVERY DAY 100 Tablet 1 07/17/2024 4:51 PM EDT 4 Active Additional Information Patient taking differently: [id number], Reported on 08/14/2024 Metoprolol Succinate ER 100 [...] 1 Tablet before bedtime. 180 Tablet 3 Active documented as of this encounter (statuses as of 09/07/2024) Active Problems Problem Noted Date Diagnosed Date Paroxysmal A-fib 08/29/2024 Coronary artery disease invo lving [place] coronary artery of [place] heart without angina pectoris 08/29/2024 Nonrheumatic aortic [...] to breakdown of skin 09/27/2023 Atherosclerosis of [place] co ronary artery without angina pectoris 02/09/2023 [...] EDT): Followed by vascular Unspecified atherosclerosis of [place] arteries of extremities, bilateral legs 02/15/2019 Assessment [...] as of this encounter (statuses as of 09/07/2024) Resolved Problems Problem Noted Date Diagnosed Date [...] 10/13/2018 02/15/2019 Coronary artery disease invo lving [place] heart without angina pectoris 06/01/2018 11/10/2021 DM type 2 causing neurological disease 01/24/2018 01/14/2021 Type 2 diabetes mellitus wit h diabetic nephropathy, without long-term current use of insulin 09/08/2017 09/08/2017 Atherosclerotic heart diseas e of [place] coronary artery with unspecified angina pectoris 09/08/2017 [...] as of this encounter (statuses as of 09/07/2024) Immunizations Name Administration Dates Next Due COVID-19 mRNA, LNP-s, No Pre serve, 2-Dose Series (Atbrox) 08/13/2021,01/22/2021,12/27/2020 Covid-19, Mrna, Lnp-s, Pf, B ivalent, 30 Mcg, IM, 12 yrs and above (Atbrox) 11/09/2022 Pneumococcal Conjugate Vacc, 13 Valent (Prevnar) [...] 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 132 [facility] [place] [address] Duane Masterson PA-C 132 [facility] [place] [address] 09/25/2024 8:20 AM EST Office Visit [address] [phone] Itzel Sloan PA-C [address] [place] [address] 10/09/2024 8:30 AM EST [facility] 132 [facility] [place] [address] Dhara Sky RN 132 [facility] [place] [address] 10/25/2024 7:00 AM EST Laboratory [facility] [phone] [address] 11/01/2024 11:40 AM EST Office Visit [address] [phone] Yury Cash MD [address] [place] [phone] 11/21/2024 8:30 AM EST Office Visit Cardiology, [facility] 132 [facility] [place] [address] Sajan Griffith PA-C [address] [place] [address] 05/29/2025 9:45 AM EDT Office Visit [facility] [address] [place] [address] Constantino Weber DO [address] [place], [place] [phone] Health Maintenance Due Date Last Done Comments [...] the patient have Health Care Power of [employer]? Yes, not currently available Care Teams Engine Lathe Tender Relationship Specialty Start Date End Date Yury Cash MD [address] [place] [phone] PCP - General Family Medicine 07/19/24 documented as of this encounter
--- OUTSIDE RECORDS SUMMARY | 2024-11-07 08:02 | External Medical Summary ---
Author Name Unknown Address Unknown Organization R1WR:[facility] [address] [place] [address] Laboratory Report Ordering Provider Test Date Status ELLIOTT MENDOZA 08/29/2024 08:55:00 Final Observation Date Value Abnormality Reference (Units ) Status Glucose, POC 08/29/2024 09:01 145 Above high normal 70 -99 (mg/dL) Final Performing Location [facility] [address] [place] [address]
--- OUTSIDE RECORDS SUMMARY | 2024-11-07 08:02 | External Medical Summary ---
Author Name Unknown Address Unknown Organization R1WR:[facility] [address] [place] [address] Laboratory Report Ordering Provider Test Date Status ELLIOTT MENDOZA 08/29/2024 08:48:00 Final Observation Date Value Abnormality Reference (Units ) Status Prothrombin Time 08/29/2024 09:05 13.7 11.9-1 4.5 (Sec) Final INR 08/29/2024 09:05 1.0 Fin al Performing Location [facility] [address] [place] [address]
--- OUTSIDE RECORDS SUMMARY | 2024-11-07 08:02 | External Medical Summary ---
Author Name Unknown Address Unknown Organization R1WR:[facility] [address] [place] [address] Laboratory Report Ordering Provider Test Date Status ELLIOTT MENDOZA 08/29/2024 08:48:00 Final Observation Date Value Abnormality Reference (Units ) Status aPTT 08/29/2024 09:06 29.9 22.6-34.3 (SE C) Final Performing Location [facility] [address] [place] [address]
--- OUTSIDE RECORDS SUMMARY | 2024-11-07 08:02 | External Medical Summary | Summary of Care ---
Author Name Unknown Organization [facility] Address [address] [place] [address] Phone [phone] Care Team Providers Care Lock Expert Name Role Phone Yury Cash MD Primary Care Provi [facility] Reason for Visit * Reason Onset Date Comments Appointment 08/17/2024 Encounter Details Date Type Department Care Team (Late st Contact Info) Description 08/17/2024 Telephone [facility] [place] [address] [facility] [place], [place] [phone] Manda Mayberry, YEISON [address] [place], [place] [id number] Appointment Allergies No known active allergiesdocumented as [...] Information Patient taking differently: 300 mg Oral [id number], Reported on 08/10/2024 Omeprazole 20 MG Oral [...] the morning. In the morning.. 11/19/2023 Active Voxie 2 w/Device Kit Check blood sugars once daily 1 Kit 01/31/2024 Active Additional Information Patient not taking.Reported on 08/10/2024 Atorvastatin Calcium 40 MG Oral Tablet (Lipitor)Indication s:Dyslipidemia, goal LDL below 100 TAKE ONE TABLET BY MOUTH EVERY DAY 100 Tablet 1 07/16/2024 Active Additional Information Patient taking differently: [id number], Reported on 08/14/2024 Metoprolol Succinate ER 100 [...] to breakdown of skin 09/27/2023 Atherosclerosis of [place] co ronary artery without angina pectoris 02/09/2023 [...] Plan: Followed by vascular Unspecified atherosclerosis of [place] arteries of extremities, bilateral legs 02/15/2019 Last [...] Hyperlipidemia associated with type 2 diabetes m norris 09/11/2010 After cataract not obscuring vision 04/07/2009 [...] 10/13/2018 02/15/2019 Coronary artery disease invo lving [place] heart without angina pectoris 06/01/2018 11/10/2021 DM type 2 causing neurological disease 01/24/2018 01/14/2021 Type 2 diabetes mellitus wit h diabetic nephropathy, without long-term current use of insulin 09/08/2017 09/08/2017 Atherosclerotic heart diseas e of [place] coronary artery with unspecified angina pectoris 09/08/2017 [...] mRNA, LNP-s, No Pre serve, 2-Dose Series ([employer]) 08/13/2021,01/22/2021,12/27/2020 Covid-19, Mrna, Lnp-s, Pf, B ivalent, 30 Mcg, IM, 12 yrs and above ([employer]) 11/09/2022 Pneumococcal Conjugate Vacc, 13 Valent (Prevnar) [...] documented as of this encounter Functional Status Functional Status Response [...] No 07/30/2024 documented as of this encounter Miscellaneous Notes * Telephone Encounter - Manda Mayberry OSA - 08/17/2024 1:39 PM EDT Per request, schedule next available appt with covering provider for that area. Scheduled for 09/20@11am with Zelalem Called and lmom with appt details documented in this encounter Plan of Treatment Upcoming Encounters Date Type Department Care Team (Late st Contact Info) Description 08/24/2024 11:00 AM EDT Office Visit Card[facility], [facility] [address] [facility] [place] [address] Caren Hernandez PA-C [address] [facility] [place] [address] 09/03/2024 12:20 PM EST Office Visit Interventional Pain Center, [facility] 132 [facility] [place] [address] Jeb Iraheta MD [address] [place] [address] 09/04/2024 8:30 AM EST Home Visit [facility] [address] [facility] [place] [address] Dhara Sky RN [address] [facility] [place] [address] 09/20/2024 11:00 AM EST Home Visit [facility] 132 [facility] [place] [address] Duane Masterson PA-C [address] [facility] [place] [place] [address] 09/25/2024 8:20 AM EST Office Visit [address] [phone] Itzel Sloan PA-C [address] [place] [address] 10/25/2024 7:00 AM EST [facility] [phone] [address] 11/01/2024 11:40 AM EST Office Visit [address] [phone] Yury Cash MD 68 [facility] [place] [phone] 11/21/2024 8:30 AM EST Office Visit Cardiology, [facility] [address] [facility] [place] [address] Sajan Griffith PA-C [address] [place] [address] 05/29/2025 9:45 AM EDT Office Visit [facility] [address] [place] [address] Constantino Weber DO 16 [place] [address] Health Maintenance Due Date Last Done Comments [...] the patient have Health Care Power of Patient Intake Representative? Yes, not currently available Care Teams Lock Expert Relationship Specialty Start Date End Date Yury Cash MD [address] [place] [phone] PCP - General Family Medicine 07/19/24 documented as of this encounter
--- OUTSIDE RECORDS SUMMARY | 2024-11-07 08:03 | External Medical Summary | Summary of Care ---
Author Name Unknown Organization [facility] Address [address] [place] [address] Phone [phone] Care Team Providers Care District Operations Manager Name Role Phone Yury Cash MD Primary Care Provi [facility] Reason for Visit * Reason Comments Re-Check Left foot Encounter Details Date Type Department Care Team ([facility] Contact Info) Description 08/14/2024 9:00 AM EDT Office Visit [address] [phone] Yury Cash MD [address] [place] [phone] Hospital discharge follow-up*; Cellulitis of left lower extremity; Paroxysmal atrial fibrillation (HCC); Idiopathic chronic gout of multiple sites without tophus; PVD (peripheral vascular disease) (HCC) Allergies No known active allergiesdocumented as [...] MOUTH EVERY DAY 90 Tablet 3 11/17/2023 5 Active Additional Information Patient taking differently: 300 mg Oral [id number], Reported on 08/10/2024 Omeprazole 20 MG Oral Capsule Delayed Release (PriLOSEC)Indicati ons:Dysphagia TAKE 1 CAPSULE BY MOUTH IN THE MORNING. TAKE 1 HOUR BEFORE THE FIRST MEAL OF THE DAY. 90 Capsule 2 11/17/2023 Active Additional Information Patient taking differently: 20 mg Oral EVERY OTHER DAY, Reported on 12/22/2023 metFORMIN HCl ER 500 MG Oral Tablet Extended Release 24 Hour (Glucophage XR)Indications:Typ e 2 diabetes mellitus with diabetic neuropathy, without long-term current use of insulin (HCC) Take 2 Tablets by mouth 2 times a day with morning and evening meals. 400 Tablet 1 01/10/2024 Active Gabapentin 600 MG Oral Tablet (Neurontin)Indicat ions:Type 2 diabetes mellitus with diabetic neuropathy, without long-term current use of insulin (HCC) TAKE ONE TABLET BY MOUTH THREE TIMES A DAY 270 Tablet 1 01/10/2024 5 Active Myrbetriq 50 MG Oral Tablet Extended Release 24 Hour Take 1 Tablet by mouth in the morning. In the morning.. 11/19/2023 Active Retty 2 w/Device Kit Check blood sugars once daily 1 Kit 01/31/2024 Active Additional Information Patient not taking.Reported on 08/10/2024 Atorvastatin Calcium 40 MG Oral Tablet (Lipitor)Indicatio ns:Dyslipidemia, goal LDL below 100 TAKE ONE TABLET BY MOUTH EVERY DAY 100 Tablet 1 07/16/2024 Active Additional Information Patient taking differently: [id number], Reported on 08/14/2024 Metoprolol Succinate ER 100 [...] this for 12 days. 24 Capsule 08/06/2024 10/19/202 4 Active Cephalexin 500 MG Oral Capsule (Keflex) Take 1 Capsule by mouth in the morning and 1 Capsule at noon and 1 Capsule in the evening and 1 Capsule before bedtime. Do all this for 10 days. 40 Capsule 08/06/2024 4 Active Acetaminophen 500 MG Oral Tablet (Tylenol) Take 1 Tablet by mouth every 6 hours as needed. Active Bisacodyl 10 MG Rectal Suppository (Dulcolax) Administer 1 Suppository into the rectum daily as needed for Constipation. Active Ketoconazole 2 % External Cream Apply topically to affected area 2 times a day. Apply to left foot 30 g 1 08/10/2024 4 Active Apixaban 5 MG Oral Tablet (Eliquis)Indicatio ns:Paroxysmal atrial fibrillation (HCC) Take 1 Tablet by mouth in the morning and 1 Tablet before bedtime. 180 Tablet 3 08/14/2024 Active Apixaban 5 MG Oral Tablet (Eliquis) Take 1 Tablet by mouth in the morning and 1 Tablet before bedtime. 60 Tablet 08/06/2024 4 Discontinue d(Refill) documented as of this encounter (statuses as of 08/14/2024) Active Problems Problem Noted Date Diagnosed Date Type 2 myocardial infarction 07/30/2024 History of tonsillectomy 12/22/2023 Hypomagnesemia 12/22/2023 Skin ulcer of right ankle, limited to breakdown of skin 09/27/2023 Atherosclerosis of [place] co ronary artery without angina pectoris 02/09/2023 [...] (AAA) without rupture 06/06/2020 Unspecified atherosclerosis of [place] arteries of extremities, bilateral legs 02/15/2019 Type [...] melanoma of skin 08/16/2011 Overview: Back - s, no SLN, unknown depth Hyperlipidemia associated with [...] 10/13/2018 02/15/2019 Coronary artery disease invo lving [place] heart without angina pectoris 06/01/2018 11/10/2021 DM type 2 causing neurological disease 01/24/2018 01/14/2021 Type 2 diabetes mellitus wit h diabetic nephropathy, without long-term current use of insulin 09/08/2017 09/08/2017 Atherosclerotic heart diseas e of [place] coronary artery with unspecified angina pectoris 09/08/2017 [...] mRNA, LNP-s, No Pre serve, 2-Dose Series ([employer]) 08/13/2021,01/22/2021,12/27/2020 Covid-19, Mrna, Lnp-s, Pf, B ivalent, [...] Sign Reading Time Taken Comments Blood Pressure 122/62 08/14/2024 8:55 AM EDT Pulse 63 08/14/2024 8:55 AM EDT Temperature 36.4 C (97.6 F) 08/14/2024 8:55 AM ED T Respiratory Rate 18 08/14/2024 8:55 AM EDT Oxygen Saturation 94% 08/14/2024 8:55 AM EDT Inhaled Oxygen Concentration - - Weight 97.5 kg (215 lb) 08/14/2024 8:55 AM EDT Height - - Body Mass Index 30.85 08/06/2024 9:11 AM EDT documented in this [...] No 07/30/2024 documented as of this encounter Patient Instructions * Patient Instructions* Yury Cash MD - 08/14/2024 9:37 AM EDT Starting taking half a pill of Lasix instead of a full pill. Talk to your md do resident urgent care regarding the need to continue Lasix. documented in this encounter Progress Notes * Yury Cash MD - 08/14/2024 9:18 AM EDT Images from the original note were not included. History of Present Illness Gomez Suarez is a 88 year old male that presents for Re-Check (Left foot) Hospital discharge visit, admitted to [facility] 07/30/2024 and discharged on 08/02/2024. He was admitted for shortness of breath, attributed to AFib with RVR, his metoprolol was increased. He was also identified to have cellulitis of the left lower extremity and was started on ceftriaxone and transitioned to cefdinir at discharge. Lasix 40 mg daily was started due to shortness of breath in moderate vascular congestion, possible pulmonary edema in the setting of RVR. He was started on Eliquis after returning to the Emergency Room on 08/06/2024. He was directed to the Emergency Room after experiencing episodic shortness of breath and rib pain, workup was unremarkable for ACS or PE In the past he has had paroxysmal atrial fibrillation, but anticoagulation was deferred according to Cardiology notes due to risk being greater than benefit, history of anemia, frailty and risk of falls. Patient sees his vascular surgeon at [facility] tomorrow, has some pain in the left lower extremity, chronic, but color/temperature/sensation is stable and left lower extremity. Cellulitis has resolved, has completed antibiotic Physical Exam Vitals: 08/14/24 0855 Temp: 36.4 C (97.6 F) Pulse: 63 Resp: 18 SpO2: 94% BP: 122/62 BP Readings from Last 3 Encounters: 08/14/24 122/62 08/10/24 124/56 08/07/24 120/64 Wt Readings from Last 3 Encounters: 08/14/24 97.5 kg (215 lb) 08/10/24 98 kg (216 lb) 08/06/24 98.4 kg (217 lb) BMI Readings from Last 3 Encounters: 08/14/24 30.85 kg/m 08/10/24 30.99 kg/m 08/06/24 31.14 kg/m Ht Readings from Last 3 Encounters: 08/06/24 1.778 m (5' 10") 07/30/24 1.778 m (5' 10") 04/25/24 1.778 m (5' 10") General; Normal cephalic, atraumatic Cardiology; Regular rate and rhythm, normal S1 S2, no murmurs, rubs or gallops, no peripheral edema Pulmonary; Clear to auscultation bilaterally, no rales, rhonchi or wheezing Neuro/psych; CN grossly intact, normal gait, answering questions appropriately, normal mood/affect I have reviewed the following results: CMP, Hemoglobin A1C, and CBC Assessment and Plan Hospital discharge follow-up (Primary) Cellulitis of left lower extremity - BASIC METABOLIC PANEL; Future; Expected date: 08/14/2024 - CBC WITH WBC DIFFERENTIAL; Future; Expected date: 08/14/2024 Paroxysmal atrial fibrillation (HCC) - Apixaban 5 MG Oral Tablet (Eliquis); Take 1 Tablet by mouth in the morning and 1 Tablet before bedtime. Idiopathic chronic gout of multiple sites without tophus PVD (peripheral vascular disease) (HCC) - BASIC METABOLIC PANEL; Future; Expected date: 08/14/2024 Follow Up: Return in about 6 weeks (around 09/25/2024) for Return with [facility], Labs Today. | For: Return with [facility], Labs Today | Check-out note: Schedule with Itzel MOSHER Please schedule patient with Cardiology. Currently scheduled in October, but needs sooner appointment since being recently admitted to the hospital Plan; I would like the patient to have follow-up with Cardiology with recent hospitalization of atrial fibrillations with RVR, patient started on Eliquis Reducing Lasix to 20 mg daily, was started on 40 mg for possible pulmonary edema in the setting of RVR which is now controlled, recheck BMP today Cellulitis resolved, antibiotic completed Continue follow-up with [facility] [place] [facility] Follow up in our office in 6 weeks with VIDHI Feliciano Wrap-Up Time: I spent a total of 40-54 minutes (exact time 40 mins) on the date of service in preparation, delivery, and documentation of the care provided to Gomez Suarez excluding any time spent in the performance of separately billed services. documented in this encounter Nursing Notes * [place] LPN - 08/14/2024 9:00 AM EDT The patient has been properly identified by confirmation of name and date of . Chief Complaint Patient presents with Re-Check Left foot Currently taking the two antibiotics prescribed while in the ER on 08/06, as well as the Ketoconazole cream BID prescribed at last office visit on 08/10. documented in this encounter Plan of Treatment Upcoming Encounters Date Type Department Care Team (Late st Contact Info) Description 08/14/2024 10:20 AM EDT Laboratory Laboratory Patient Service [address] [phone] [address] Type 2 diabetes mellitus with diabetic neuropathy, without long-term current use of insulin ([facility]); Cellulitis of left lower extremity; PVD (peripheral vascular disease) ([facility]) 08/17/2024 10:30 AM EDT [facility] [place] [address] Marjorie Summers CRNP [facility] [place] [address] Masha Rutledge, Community Health Reading Specialist [facility] [place] [address] 09/03/2024 12:20 PM EST Office Visit Interventional Pain Center, [facility] [place] [address] Jeb Iraheta MD 16 [place] [address] 09/04/2024 8:30 AM EST Home Visit [facility] [address] [place] [address] Dhara Sky, RN 132 [place] [address] 09/25/2024 8:20 AM EST Office Visit [address] [phone] Itzel Sloan PA-C [address] [place] [address] 10/25/2024 7:00 AM EST Laboratory [facility] [phone] [facility] [address] [address] 11/01/2024 11:40 AM EST Office Visit [address] [phone] Yury Cash MD [address] [place] [phone] 11/21/2024 8:30 AM EST Office Visit Cardiology, [facility] [address] [place] [address] Sajan Griffith PA-C 132 [place] [address] 05/29/2025 9:45 AM EDT Office Visit [facility] [address] [place] [address] Constantino Weber DO 16 [place] [address] Pending Results Name Type Priority Associated Diagnoses Date /Time BASIC METABOLIC PANEL Lab Routine Cellulitis of left lower extremity PVD (peripheral vascular disease) (HCC) 08/14/2024 9:59 AM EDT CBC WITH WBC DIFFERENTIAL Lab Routine Cellulitis of left lower extremity 08/14/2024 9:59 AM EDT Scheduled Orders Name Type Priority Associated Diagnoses Orde r Schedule BASIC METABOLIC PANEL Lab Routine Cellulitis of left lower extremity PVD (peripheral vascular disease) (HCC) Expected: 08/14/2024 (Approximate), Expires: 08/14/2025 CBC WITH WBC DIFFERENTIAL Lab Routine Cellulitis of left lower extremity Expected: 08/14/2024 (Approximate), Expires: 08/14/2025 Health Maintenance Due Date Last Done Comments [...] as of this encounter Visit Diagnoses Diagnosis Hospital discharge follow-up- Primary Other follow-up examination Cellulitis of left lower extremity Cellulitis and abscess of leg, except foot Paroxysmal atrial fibrillation (HCC) Atrial fibrillation Idiopathic chronic gout of multiple sites without tophus Chronic gouty arthropathy without mention of tophus (tophi) PVD (peripheral vascular disease) (HCC) Peripheral vascular disease, unspecified Type 2 diabetes mellitus with diabetic neuropathy, without long-term current use of insulin (HCC) Cellulitis of left lower extremity Cellulitis and abscess of leg, except foot PVD (peripheral vascular disease) (HCC) Peripheral vascular disease, unspecified documented in this encounter Advance Directives [...] the patient have Health Care Power of Fishing Captain? Yes, not currently available Care Teams District Operations Manager Relationship Specialty Start Date End Date Yury Cash MD [address] [place] [phone] PCP - General Family Medicine 07/19/24 documented as of this encounter
--- OUTSIDE RECORDS SUMMARY | 2024-11-07 08:03 | External Medical Summary ---
Author Name Unknown Address Unknown Organization [id number]:LABORATORY [facility] [place] - [address] [place] [address] Laboratory Report Ordering Provider Test Date Status IGNACIO AZAR 08/14/2024 09:59:56 Final Observation Date Value Abnormality Reference (Units ) Status WBC, Total 08/14/2024 09:59:56 5.54 4.00-10.80 (K/uL) Final RBC 08/14/2024 09:59:56 4.76 4.50-5.25 (M/uL) Final Hemoglobin 08/14/2024 09:59:56 12.2 Below low normal 14.0-16.8 (g/dL) Final HCT 08/14/2024 09:59:56 39.9 Below low normal 40.0-48.4 (%) Final MCV 08/14/2024 09:59:56 83.8 82.0-99.5 (fL) Final MCH 08/14/2024 09:59:56 25.6 27.0-34.0 (pg) Final MCHC 08/14/2024 09:59:56 30.6 32.0-36.0 (g/dL) Final RDW 08/14/2024 09:59:56 17.1 11.5-15.5 (%) Final Platelets 08/14/2024 09:59:56 303 140-400 (K/uL) Final MPV 08/14/2024 09:59:56 10.8 6.6-11.1 (fL) Final Nucleated erythrocytes/100 leukocytes [Ratio] in Blood by Automated count 08/14/2024 09:59:56 0 <=0 (/100 WBCs) Final Performing Location LABORATORY [facility] [place] - [address] [place] [address]
--- OUTSIDE RECORDS SUMMARY | 2024-11-07 08:03 | External Medical Summary | Summary of Care ---
Author Name Unknown Organization [facility] Address [address] [place] [address] Phone [phone] Care Team Providers Care Aquatic Centre Manager Name Role Phone Doe Cash MD Primary Care Provi [facility] Reason for Visit * Reason Comments Medication Refill Encounter Details Date Type Department Care Team ([facility] st Contact Info) Description 08/12/[address] [phone] Eron Tovar, DO [address] [address] Type 2 diabetes mellitus with diabetic neuropathy, [...] Information Patient taking differently: 300 mg Oral [id number], Reported on 08/10/2024 Omeprazole 20 MG Oral [...] the morning. In the morning.. 11/19/2023 Active ContinuumRx 2 w/Device Kit Check blood sugars once daily 1 Kit 01/31/2024 Active Additional Information Patient not taking.Reported on 08/10/2024 Atorvastatin Calcium 40 MG Oral Tablet (Lipitor)Indicati ons:Dyslipidemia, goal LDL below 100 TAKE ONE TABLET BY MOUTH EVERY DAY 100 Tablet 1 07/16/2024 Active Additional Information Patient taking differently: [id number], Reported on 08/14/2024 Metoprolol Succinate ER 100 [...] this for 12 days. 24 Capsule 08/06/2024 4 Active Cephalexin 500 MG Oral Capsule [...] foot 30 g 1 08/10/2024 4 Active Gabapentin 600 MG Oral Tablet (Neurontin)Indica tions:Type 2 diabetes mellitus with diabetic neuropathy, without long-term current use of insulin (HCC) TAKE ONE TABLET BY MOUTH THREE TIMES A DAY 270 Tablet 1 08/14/2024 5 Active Gabapentin 600 MG Oral Tablet (Neurontin)Indica tions:Type 2 diabetes mellitus with diabetic neuropathy, without long-term current use of insulin (HCC) TAKE ONE TABLET BY MOUTH THREE TIMES A DAY 270 Tablet 1 01/10/2024 4 Discontinue d(Refill) Apixaban 5 MG Oral Tablet (Eliquis) Take [...] to breakdown of skin 09/27/2023 Atherosclerosis of [place] co ronary artery without angina pectoris 02/09/2023 [...] (AAA) without rupture 06/06/2020 Unspecified atherosclerosis of [place] arteries of extremities, bilateral legs 02/15/2019 Type 2 diabetes mellitus wit h diabetic neuropathy, without long-term current use of insulin 09/08/2017 S/P right coronary artery (RCA) stent placement 09/20/2016 Paroxysmal atrial fibrillation 05/17/2016 Idiopathic chronic gout of multiple sites withmine [...] 10/13/2018 02/15/2019 Coronary artery disease invo lving [place] heart without angina pectoris 06/01/2018 11/10/2021 DM type 2 causing neurological disease 01/24/2018 01/14/2021 Type 2 diabetes mellitus wit h diabetic nephropathy, without long-term current use of insulin 09/08/2017 09/08/2017 Atherosclerotic heart diseas e of [place] coronary artery with unspecified angina pectoris 09/08/2017 [...] mRNA, LNP-s, No Pre serve, 2-Dose Series ([employer]) 08/13/2021,01/22/2021,12/27/2020 Covid-19, Mrna, Lnp-s, Pf, B ivalent, [...] Telephone Encounter - Doe Cash MD - 08/14/2024 10:06 AM EDT Signed Prescriptions: Disp Refills Gabapentin 600 MG Oral Tablet (Neurontin) 270 Ta*1 Sig: TAKE ONE TABLET BY MOUTH THREE TIMES A DAY Authorizing Provider: DOE CASH * Telephone Encounter - Doe Cash MD - 08/14/2024 10:06 AM EDT Signed Prescriptions: Disp Refills Gabapentin 600 MG Oral Tablet (Neurontin) 270 Ta*1 Sig: TAKE ONE TABLET BY MOUTH THREE TIMES A DAY Authorizing Provider: DOE CASH * Telephone Encounter - Deepika Mcneill LPN - 08/13/2024 9:04 AM EDTPending Prescriptions: Disp Refills Gabapentin 600 MG Oral Tablet (Neurontin) 270 Ta*1 Sig: TAKE ONE TABLET BY MOUTH THREE TIMES A DAY * Telephone Encounter - Deepika Mcneill LPN - 08/13/2024 9:04 AM EDT 08/10/2024 (in office), Visit date not found (telemedicine) Next appt: 08/14/2024 Pending Prescriptions: Disp Refills Gabapentin 600 MG Oral Tablet (Neurontin) 270 Ta*1 Sig: TAKE ONE TABLET BY MOUTH THREE TIMES A DAY * Telephone Encounter - Baldemar Kuhn - 08/12/2024 7:16 AM EDTPending Prescriptions: Disp Refills Gabapentin 600 MG Oral Tablet (Neurontin) 270 Ta*1 Sig: TAKE ONE TABLET BY MOUTH THREE TIMES A DAY documented in this encounter Plan of Treatment Upcoming Encounters Date Type Department Care Team (Late st Contact Info) Description 08/17/2024 10:30 AM EDT [facility] 132 [facility] [place] [address] Marjorie Summers CRNP 132 [facility] [place] [address] Masha Rutledge, Community Health Adventure Therapist [address] [place] [address] 09/03/2024 12:20 PM EST Office Visit [facility], [facility] 132 [facility] [place] [address] Jeb Iraheta MD [address] [place] [address] 09/04/2024 8:30 AM EST [facility] Visit [facility] [place] 132 [facility] [place] [address] Dhara Sky, RN 132 [facility] [place] [address] 09/25/2024 8:20 AM EST Office Visit Family [facility] [address] [place] [phone] Itzel Sloan PA-C [address] [place] [address] 10/25/2024 7:00 AM EST Laboratory Laboratory Patient Service [place] [place] [address] [place] [phone] [place], [facility] [address] [place] [address] 11/01/2024 11:40 AM EST Office Visit [facility] [address] [place] [phone] Doe Cash MD [address] [place] [address] 11/21/2024 8:30 AM EST Office Visit Cardiology, [facility] [address] [facility] [place] [address] Sajan Griffith PA-C [address] [place] [address] 05/29/2025 9:45 AM EDT Office Visit [facility] [address] [place] [address] Constantino Weber DO 16 [place] [address] Health Maintenance Due Date Last Done Comments [...] as of this encounter Visit Diagnoses Diagnosis Type 2 diabetes mellitus with diabetic neuropathy, [...] the patient have Health Care Power of Rattlesnake Farmer? Yes, not currently available Care Teams Aquatic Centre Manager Relationship Specialty Start Date End Date Doe Cash MD [address] [place] [address] [place] [address] PCP - General Family Medicine 07/19/24 documented as of this encounter
--- OUTSIDE RECORDS SUMMARY | 2024-11-07 08:03 | External Medical Summary | Summary of Care ---
Author Name Unknown Organization [facility] Address [address] [place] [facility] [place] [address] Phone [phone] Care Team Providers Care Ornamental Machine Operator Name Role Phone Yury Cash MD [facility] Encounter Details Date Type Department Care Team (Late st Contact Info) Description 08/07/2024 12:30 PM EDT [facility] [address] [place] [address] Dhara Sky, RN [address] [place] [address] Allergies No known active allergiesdocumented as of this encounter (statuses as of 08/07/2024) Medications Medication Sig Dispensed Refills Start Date [...] Information Patient taking differently: 300 mg Oral HS, Reported on 12/22/2023 Omeprazole 20 MG Oral Capsule Delayed Release [...] TIMES A DAY 270 Tablet 1 01/10/2024 01/09/2025 Active Myrbetriq 50 MG Oral Tablet Extended Release 24 Hour Take 1 Tablet by mouth in the morning. In the morning.. 11/19/2023 Active [employer] 2 w/Device Kit Check blood sugars once daily 1 Kit 01/31/2024 Active Atorvastatin Calcium 40 MG Oral Tablet (Lipitor)Indicatio ns:Dyslipidemia, goal LDL below 100 TAKE ONE TABLET BY MOUTH EVERY DAY 100 Tablet 1 07/16/2024 Active Metoprolol Succinate ER 100 MG Oral [...] 12 days. 24 Capsule 08/06/2024 08/18/2024 Active Cephalexin 500 MG Oral Capsule (Keflex) Take 1 Capsule by mouth in the morning and 1 Capsule at noon and 1 Capsule in the evening and 1 Capsule before bedtime. Do all this for 10 days. 40 Capsule 08/06/2024 08/16/2024 Active Apixaban 5 MG Oral Tablet (Eliquis) Take 1 Tablet by mouth in the morning and 1 Tablet before bedtime. 60 Tablet 08/06/2024 09/05/2024 Active Acetaminophen 500 MG Oral Tablet (Tylenol) Take 1 Tablet by mouth every 6 hours as needed. Active Bisacodyl 10 MG Rectal Suppository (Dulcolax) Administer 1 Suppository into the rectum daily as needed for Constipation. Active documented as of this encounter (statuses as of 08/07/2024) Active Problems Problem Noted Date Diagnosed Date Atrial fibrillation with RVR 07/30/2024 Type 2 myocardial infarction 07/30/2024 Cellulitis of left lower extremity 07/30/2024 Physical deconditioning 12/27/2023 Ambulatory dysfunction 12/27/2023 Elevated troponin 12/23/2023 Generalized weakness 12/23/2023 Encephalopathy acute 12/23/2023 Cellulitis 12/22/2023 COVID 12/22/2023 Elevated lactic acid level 12/22/2023 Fever, unknown origin 12/22/2023 Hematuria 12/22/2023 History of tonsillectomy 12/22/2023 Hypomagnesemia 12/22/2023 Hypoxia 12/22/2023 Recurrent falls 12/22/2023 Retention of urine 12/22/2023 Urinary tract infection 12/22/2023 Skin ulcer of right ankle, limited to breakdown of skin 09/27/2023 Atherosclerosis of [place] co ronary artery without angina pectoris 02/09/2023 [...] if he would like to do this Chronic kidney disease, stage 3a 08/10/2021 Overview: Per CKD protocol Abdominal aortic aneurysm (AAA) without rupture 06/06/2020 Unspecified atherosclerosis of [place] arteries of extremities, bilateral legs 02/15/2019 Type [...] as of this encounter (statuses as of 08/07/2024) Resolved Problems Problem Noted Date Diagnosed Date Resolved Date Pneumonia of left lower lobe due to infectious organism 12/22/2023 08/06/2024 Cellulitis of left lower extremity 12/23/2021 12/25/2023 Type 2 diabetes mellitus wit h hemoglobin A1c goal of less than 7.5% 11/14/2019 01/14/2021 Skin ulcer of toe of left fo ot, limited to breakdown of skin 10/13/2018 02/15/2019 Coronary artery disease invo lving [place] heart without angina pectoris 06/01/2018 11/10/2021 DM type 2 causing neurological disease 01/24/2018 01/14/2021 Type 2 diabetes mellitus wit h diabetic nephropathy, without long-term current use of insulin 09/08/2017 09/08/2017 Atherosclerotic heart diseas e of [place] coronary artery with unspecified angina pectoris 09/08/2017 [...] as of this encounter (statuses as of 08/07/2024) Immunizations Name Administration Dates Next Due COVID-19 mRNA, LNP-s, No Pre serve, 2-Dose Series ([employer]) 08/13/2021,01/22/2021,12/27/2020 Covid-19, Mrna, Lnp-s, Pf, B ivalent, [...] Sign Reading Time Taken Comments Blood Pressure 120/64 08/07/2024 1:42 PM EDT Pulse 66 08/07/2024 1:42 PM EDT Temperature 36.4 C (97.6 F) 08/07/2024 1:42 PM ED T Respiratory Rate 18 08/07/2024 1:42 PM EDT Oxygen Saturation 98% 08/07/2024 1:42 PM EDT Inhaled Oxygen Concentration - - Weight [...] (15 years old or older) No 07/30/20 24 Cognitive Status Response Date of Assessm ent Because of a physical, menta l, or emotional condition, do you have serious difficulty concentrating, remembering, or making decisions? (5 years old or older) No 07/30/2024 documented as of this encounter Progress Notes * Dhara Sky RN - 08/07/2024 1:48 PM EDT Images from the original note were not included. Current Concerns: Pt seen for JALEEL and enrollment to [facility] Admitted to [facility] 07/30 - 08/02/24 for LLE cellulitis and Afib with RVR Was started on Metoprolol Succinate 100mg BID and Lasix 40mg daily at that time Seen by pcp for hospital f/u yesterday and was complaining of left side rib pain with deep breath -send to [facility] ED to check for PE - tests negative Abx changed from Bactrim DS to Keflex and Doxy [facility] for SN, PT and OT Physical Exam: Physical Exam Constitutional: General: He [...] Skin: General: Skin is warm and dry. Findings: Erythema (mild LLE) present. Neurological: Mental Status: He is alert. Review of Systems: Review of Systems Constitutional: Negative. HENT: Negative. Eyes: Negative. Respiratory: Negative. Cardiovascular: Positive for leg swelling. Gastrointestinal: Negative. Genitourinary: Negative. Musculoskeletal: Positive for arthralgias, back pain and gait problem. Skin: Negative. Psychiatric/Behavioral: Negative. Care Plan Goal Progress: Orders Placed: No orders of the defined types were placed in this encounter. Medications Given: Care Gaps: Care Gaps Care gaps closed this contact:: Education;Medications;Plan of Care (POC) (08/07/241346) Type of education: Clinical/disease (08/07/241346) Type of medication care gap: Medication adherence;Medication optimization (08/07/241346) Type of plan of care (POC) care gap: Creation of plan of care (POC) and/or Integrated Care Plan (ICP);Creation of exacerbation plan (developed exacerbation plan and 3 red flags) (08/07/241346) documented in this encounter Plan of Treatment Upcoming Encounters Date Type Department Care Team ([facility] st Contact Info) Description 08/10/2024 9:20 AM EDT Office Visit [address] [phone] Rosario Goodwin PA-C [address] [place] [address] 08/14/2024 9:00 AM EDT Office Visit [address] [phone] Yury Cash MD [address] [place] [phone] 08/17/2024 10:30 AM EDT [facility] Visit [facility] [address] [facility] [place] [address] Marjorie Summers CRNP 132 [facility] [place] [address] Masha Rutledge, Community Health Journeyman Pipe Welder [address] [place] [address] 09/03/2024 12:20 PM EST Office Visit [facility] Center, [facility] [address] [place] [address] Jeb Iraheta MD [address] [place] [address] 09/04/2024 8:30 AM EST Home Visit [facility] [address] [place] [address] Dhara Sky, RN [address] [place] [address] 10/25/2024 7:00 AM EST Laboratory Laboratory Patient Service [address] [phone] [address] 11/01/2024 11:40 AM EST Office Visit [facility] 68 [place] [address] Yury Cash MD [address] [place] [phone] 11/21/2024 8:30 AM EST Office Visit Cardiology, [facility] [place] [address] Sajan Griffith PA-C [address] [place] [address] 05/29/2025 9:45 AM EDT [facility] Visit [facility] 16 [place] [address] Constantino Weber DO 16 [place] [address] Health Maintenance Due Date Last Done Comments Colonoscopy 01/20/2016 01/19/2011, 12/29, 01/07/2011, Additional history exists Albumin/Creatinine Ratio 05/07/2023 022, 04/11/2021, 05/28/2020, Additional history exists Diabetic Foot Exam 06/08/2024 06/08/2023, 1 , 11/10/2021, Additional history exists COVID-19 Vaccine ( season) 2024 11/09/2022, 08/13/2021, 01/22/2021, Additional history exists HbA1c 01/16/2025 07/19/2024, 01/29, 02/10/2024, Additional history exists CKD PHOS USE SMARTSET 08312 02/09/202501/29, 02/10/2024, 01/06/2024, Additional history exists B-12 05/17/2025 05/17/2024, 0505/2024, 07/07/2023, Additional history exists Diabetic Eye Exam 06/18/2025 06/18/2024, , 05/25/2024, Additional history exists Adult Wellness Visit 08/06/2025 08/06/2024 CKD HGB USE SMARTSET 75574 08/06/202508/06, 08/06/2024, 08/02/2024, Additional history exists Depression Screening 08/06/2025 08/06/2024, 04/21/20 15 DTap/Tdap Vaccines (3 - Td or Tdap) [...] the patient have Health Care Power of Aeronautical Research Engineer? Yes, not currently available Care Teams Ornamental Machine Operator Relationship Specialty Start Date End Date Yury Cash MD [address] [place], [place] [address] [place] [phone] PCP - General Family Medicine 07/19/24 documented as of this encounter
--- OUTSIDE RECORDS SUMMARY | 2024-11-07 08:03 | External Medical Summary | Summary of Care ---
Author Name Unknown Organization [facility] Address [address] [facility] [place] [address] Phone [phone] Care Team Providers Care Superintendent Electric Power Name Role Phone Yury Cash MD Primary Care Provi [facility] Encounter Details Date Type Department Care Team (Late st Contact Info) Description 08/07/2024 Population Health External Data Unspecified Department Allergies [...] 01/10/2024 Active Gabapentin 600 MG Oral Tablet (Neurontin)Indica tions:Type 2 diabetes mellitus with diabetic neuropathy, without long-term current use of insulin (HCC) TAKE ONE TABLET BY MOUTH THREE TIMES A DAY 270 Tablet 1 01/10/2024 01/09/2025 Active Myrbetriq 50 MG Oral Tablet Extended Release 24 Hour Take 1 Tablet by mouth in the morning. In the morning.. 11/19/2023 Active [employer]stream 2 w/Device Kit Check blood sugars once [...] before bedtime. 60 Tablet 08/06/2024 09/05/2024 Active documented as of this encounter (statuses [...] to breakdown of skin 09/27/2023 Atherosclerosis of [place] co ronary artery without angina pectoris 02/09/2023 [...] (AAA) without rupture 06/06/2020 Unspecified atherosclerosis of [place] arteries of extremities, bilateral legs 02/15/2019 Type [...] Hyperlipidemia associated with type 2 diabetes m ellitus 09/11/2010 After cataract not obscuring vision 04/07/2009 [...] 10/13/2018 02/15/2019 Coronary artery disease invo lving [place] heart without angina pectoris 06/01/2018 11/10/2021 DM type 2 causing neurological disease 01/24/2018 01/14/2021 Type 2 diabetes mellitus wit h diabetic nephropathy, without long-term current use of insulin 09/08/2017 09/08/2017 Atherosclerotic heart diseas e of [place] coronary artery with unspecified angina pectoris 09/08/2017 [...] mRNA, LNP-s, No Pre serve, 2-Dose Series ([employer]) 08/13/2021,01/22/2021,12/27/2020 Covid-19, Mrna, Lnp-s, Pf, B ivalent, [...] the money to buy more. Never true 02/21/20 24 Within the past 12 months, t he food you bought just didn't last and you didn't have money to get more. Never true 02/21/2024 Childcare Answer Date Recorded Do you feel overwhelmed with taking care of a child, family member or friend? No 02/21/2024 Does your family need help f inding childcare? (Household - for ages 0-17 years) Not on file 02/21/2024 Clothing Answer Date Recorded Have you been unable to get clothing when it was really needed? No 02/21/2024 Is your family able to get c lothes or diapers when needed? (Household - for ages 0-17 years) Not on file 02/21/2024 Personal Safety Answer Date Recorded Do you feel unsafe or have concerns for your saf ety? No 07/30/2024 Do you have concerns for you r family's safety? (Household - for ages 0-17 years) Not on file 07/30/2024 Utilities Answer Date Recorded Do you have trouble paying y our heating, water, or electric bill? No 07/30/2024 Is your family able to pay t he heat, water, or electric bill? (Household - for ages 0-17 years) Not on file 07/30/2024 Does your family have access to good internet? (Household - for ages 0-17 years) Not on file 07/30/2024 Employment Status Answer Date Recorded Are you unemployed or without regular income? No 02/21/2024 Does the household have a re gular source of income? (Household - for ages 0-17 years) Not on file 02/21/2024 Social Connections Answer Date Recorded How often do you feel lonely or isolated from th ose around you? Never 02/21/2024 Financial Resource Strain Answer Date R ecorded Do you have any trouble payi ng for your medications, or do you think you might in the future? No 02/21/2024 Does your family have troubl e paying for medicine? (Household - for ages 0-17 years) Not on file 02/21/2024 Transportation Needs Answer Date Record ed READ ONLY Do you have troubl e getting a ride to medical visits or work? Never True 07/30/2024 Does your family have a hard time getting a ride to doctors visits? (Household - for ages 0-17 years) Not on file 07/30/2024 Has lack of transportation k ept you from medical appointments, meetings, work, or from getting things needed for daily living? Check all that apply. No 07/30/2024 Do you (or your family) have trouble finding or paying for a ride (transportation)? (Household - for ages 0-17 years) Not on file 07/30/2024 Housing Stability Answer Date Recorded Do you currently live in a s helter or have no steady place to sleep at night? No 07/30/2024 READ ONLY Do you think you a re at risk of becoming homeless? No 07/30/2024 Does your family worry about paying for your home or becoming homeless? (Household - for ages 0-17 years) Not on file 0 07/30/2024 Are you homeless or worried that you might be in the future? No 07/30/2024 Are you (or your family) roxy eless or worried that you might be in the future? (Household - for ages 0-17 years) Not on file Food Insecurity Answer Date Recorded Do you need food for this week? No 07/30/2024 Are you able to get enough f ood for your family? (Household - for ages 0-17 years) Not on file 07/30/2024 Does your family need food t his week? (Household - for ages 0-17 years) Not on file 07/30/2024 Do you always have enough fo od for your family? (Household - for ages 0-17 years) Not on file 07/30/2024 Sex and Gender Information Value Date Recorded [...] No 07/30/2024 documented as of this encounter Plan of Treatment Upcoming Encounters Date Type Department Care Team ([facility] Contact Info) Description 08/07/2024 12:30 PM EDT Home Visit [facility] [address] [place] [address] Dhara Sky RN [address] [place] [address] 08/14/2024 9:00 AM EDT Office Visit [address] [place] [address] Yury Cash MD [address] [place] [phone] 08/17/2024 10:30 AM EDT [facility] Visit [facility] 132 [place] [address] Marjorie Summers CRNP 132 [place] [address] Masha Rutledge, Community Health Rn [facility] [address] [place] [address] 09/03/2024 12:20 PM EST Office Visit [facility], [facility] [address] [place] [address] Jeb Iraheta MD [address] [place] [address] 10/25/2024 7:00 AM EST Laboratory Laboratory Patient Service [address] [address] [address] 11/01/2024 11:40 AM EST Office Visit Family [address] [phone] Yury Cash MD [address] [place] [phone] 11/21/2024 8:30 AM EST Office Visit Cardiology, [facility] 132 [place] [address] Sajan Griffith PA-C 132 [place] [address] 05/29/2025 9:45 AM EDT Office Visit [facility] 16 [place] [address] Constantino Weber DO 16 [place] [address] Health Maintenance Due Date Last Done Comments Colonoscopy 01/20/2016 01/19/2011, 12/29, 01/07/2011, Additional history exists Albumin/Creatinine Ratio 05/07/2023 022, 04/11/2021, 05/28/2020, Additional history exists Diabetic Foot Exam 06/08/2024 06/08/2023, 1 , 11/10/2021, Additional history exists COVID-19 Vaccine ( season) 2024 11/09/2022, 08/13/2021, 01/22/2021, Additional history exists HbA1c 01/16/2025 07/19/2024, 01/29, 02/10/2024, Additional history exists CKD PHOS USE SMARTSET 60013 02/09/202501/29, 02/10/2024, 01/06/2024, Additional history exists B-12 05/17/2025 05/17/2024, 05/0 05/2024, 07/07/2023, Additional history exists Diabetic Eye Exam 06/18/2025 06/18/2024, , 05/25/2024, Additional history exists Adult Wellness Visit 08/06/2025 08/06/2024 CKD HGB USE SMARTSET 81268 08/06/202508/06, 08/06/2024, 08/02/2024, Additional history exists Depression [...] the patient have Health Care Power of Family Preservation Worker? Yes, not currently available Care Teams Superintendent Electric Power Relationship Specialty Start Date End Date Yury Cash MD [address] [place] [phone] PCP - General Family Medicine 07/19/24 documented as of this encounter
--- OUTSIDE RECORDS SUMMARY | 2024-11-07 08:03 | External Medical Summary ---
Author Name Unknown Address Unknown Organization [id number]:[facility] - [address] [place] [address] Laboratory Report Ordering Provider Test Date Status IGNACIO AZAR 08/14/2024 09:59:56 Final Observation Date Value Abnormality Reference (Units ) Status BUN 08/14/2024 09:59:56 11 6-20 (mg/dL) Final Creatinine 08/14/2024 09:59:56 1.0 0.6-1.2 (mg/dL) Final Glomerular filtration rate/1.73 sq M.predicted [Volume Rate/Area] in Serum, Plasma or Blood by Creatinine-based formula (CKD-EPI) 08/14/2024 09:59:56 77 >=60 (mL/min) Final eGFR is calculated based on the CKD-EPI 2020 equation. Sodium 08/14/2024 09:59:56 139 135-146 (m mol/L) Final Potassium 08/14/2024 09:59:56 4.4 3.5-5.1 (m mol/L) Final Cl 08/14/2024 09:59:56 96 Below low normal 98- 107 (mmol/L) Final CO2 08/14/2024 09:59:56 30 22-32 (mmo l/L) Final Anion gap 08/14/2024 09:59:56 13 7-15 (mmol /L) Final Glucose 08/14/2024 09:59:56 129 Above high normal 70 -120 (mg/dL) Final Calcium 08/14/2024 09:59:56 10.2 8.4-10.2 ( mg/dL) Final Performing Location [facility] - [address] [place] [address]
--- OUTSIDE RECORDS SUMMARY | 2024-11-07 08:03 | External Medical Summary ---
Author Name Unknown Address Unknown Organization K01:[facility] - [address] [address] [place] [address] Laboratory Report Ordering Provider Test Date Status IGNACIO AZAR 08/14/2024 09:59:56 Final Observation Date Value Abnormality Reference (Units ) Status SYNC LEUKOCYTES IN BLOOD BY AUTOMATED COUNT 08/14/2024 09:59:56 5.54 4.00-10.80 (K/uL) Final Segs 08/14/2024 09:59:56 58.5 40.0-75.0 (%) Final Lymphs % 08/14/2024 09:59:56 27.6 18.0-42.0 (%) Final Monos 08/14/2024 09:59:56 11.9 Above high normal 1.0-11.0 (%) Final Eosinophils 08/14/2024 09:59:56 1.4 0.0-6.0 (%) Final Basos 08/14/2024 09:59:56 0.4 0.0-2.0 (%) Final Immature Granulocyte, Percent 08/14/2024 09:59:56 0.2 0.0-2.0 (%) Final Absolute Segs 08/14/2024 09:59:56 3.24 1.80-7.70 (K/uL) Final Lymphs, absolute 08/14/2024 09:59:56 1.53 1.00-4.80 (K/ul) Final Monos, Abs 08/14/2024 09:59:56 0.66 0.00-1.10 (K/uL) Final Eos, Abs 08/14/2024 09:59:56 0.08 0.00-0.70 (K/uL) Final Basos, Abs 08/14/2024 09:59:56 0.02 0.00-0.20 (K/uL) Final Immature Granulocytes, Number 08/14/2024 09:59:56 0.01 0.00-0.20 (K/uL) Final Performing Location [facility] - [address] [facility] [address]
--- OUTSIDE RECORDS SUMMARY | 2024-11-07 08:03 | External Medical Summary | Summary of Care ---
Author Name Unknown Organization [facility] Address [address] [place] [address] Phone [phone] Care Team Providers Care Clerical And Administrative Workers Name Role Phone Yury Cash MD Primary Care Provi [facility] Reason for Visit * Reason Comments Outpatient Testing Encounter Details Date Type Department Care Team (Late st Contact Info) Description 08/14/2024 10:20 AM EDT Laboratory Laboratory Patient Service [address] [phone] [address] Type 2 diabetes mellitus with diabetic neuropathy, without long-term current use of insulin ([facility]); Cellulitis of left lower extremity; PVD (peripheral vascular disease) ([facility]) Allergies No known active allergiesdocumented [...] Information Patient taking differently: 300 mg Oral [id number], Reported on 08/10/2024 Omeprazole 20 MG Oral [...] the morning. In the morning.. 11/19/2023 Active HuTerra 2 w/Device Kit Check blood sugars once daily 1 Kit 01/31/2024 Active Additional Information Patient not taking.Reported on 08/10/2024 Atorvastatin Calcium 40 MG Oral Tablet (Lipitor)Indicatio ns:Dyslipidemia, goal LDL below 100 TAKE ONE TABLET BY MOUTH EVERY DAY 100 Tablet 1 07/16/2024 Active Additional Information Patient taking differently: [id number], Reported on 08/14/2024 Metoprolol Succinate ER 100 [...] to left foot 30 g 1 08/10/2024 Active Apixaban 5 MG Oral Tablet (Eliquis)Indicatio ns:Paroxysmal atrial fibrillation (HCC) Take 1 Tablet by mouth in the morning and 1 Tablet before bedtime. 180 Tablet 3 08/14/2024 Active Gabapentin 600 MG Oral Tablet (Neurontin)Indicat ions:Type 2 diabetes mellitus with diabetic neuropathy, without long-term current use of insulin (HCC) TAKE ONE TABLET BY MOUTH THREE TIMES A DAY 270 Tablet 1 01/10/2024 4 Discontinue d(Refill) documented as of this [...] (AAA) without rupture 06/06/2020 Unspecified atherosclerosis of [place] arteries of extremities, bilateral legs 02/15/2019 Type 2 diabetes mellitus wit h diabetic neuropathy, without long-term current use of insulin 09/08/2017 S/P right coronary artery (RCA) stent placement 09/20/2016 Paroxysmal atrial fibrillation 05/17/2016 Idiopathic chronic gout of multiple sites withou t jeanette 10/14/2014 Hx of nonmelanoma skin cancer 08/21/2012 [...] mRNA, LNP-s, No Pre serve, 2-Dose Series ([employer]) 08/13/2021,01/22/2021,12/27/2020 Covid-19, Mrna, Lnp-s, Pf, B ivalent, 30 Mcg, IM, 12 yrs and above ([employer]) 11/09/2022 Pneumococcal Conjugate Vacc, 13 Valent (Prevnar) [...] Description 08/17/2024 10:30 AM EDT [facility] [address] [facility] [place] [address] Marjorie Summers CRNP [address] [facility] [place] [address] Masha Rutledge, Community Health Logistics Team Lead [address] [place] [address] 09/03/2024 12:20 PM EST Office Visit [facility] [address] [facility] [place] [address] Jeb Iraheta MD [address] [place] [address] 09/04/2024 8:30 AM EST Home Visit [facility] at [facility] 132 [facility] [place] [address] Dhara Sky, RN [facility] [address] 09/25/2024 8:20 AM EST Office Visit [address] [phone] Itzel Sloan PA-C [address] [place] [address] 10/25/2024 7:00 AM EST Laboratory Laboratory [facility] [phone] [address] 11/01/2024 11:40 AM EST Office Visit [address] [phone] Yury Cash MD [address] [place] [phone] 11/21/2024 8:30 AM EST Office Visit Cardiology, [facility] 132 [facility] [place] [address] Sajan Griffith PA-C [facility] [address] 05/29/2025 9:45 AM EDT Office Visit [facility] [address] [place], [place] [id number] Constantino Weber DO [address] [place], [place] [id number] Pending Results Name Type Priority Associated Diagnoses Date /Time HEMOGLOBIN A1C Lab Routine Type 2 diabetes mellitus with diabetic neuropathy, without long-term current use of insulin ([facility]) 08/14/2024 9:59 AM EDT BASIC METABOLIC PANEL Lab Routine Cellulitis of left lower extremity PVD (peripheral vascular disease) ([facility]) 08/14/2024 9:59 AM EDT CBC WITH WBC DIFFERENTIAL Lab Routine Cellulitis of left lower extremity 08/14/2024 9:59 AM EDT CBC Lab Routine Cellulitis of left lower extremity 08/14/2024 9:59 AM EDT DIFFERENTIAL, AUTOMATED Lab Routine Cellulitis of left lower extremity 08/14/2024 9:59 AM EDT Health Maintenance Due Date Last Done Comments [...] the patient have Health Care Power of Real Estate Investment Analyst? Yes, not currently available Care Teams Clerical And Administrative Workers Relationship Specialty Start Date End Date Yury Cash MD [address] [place] [phone] PCP - General Family Medicine 07/19/24 documented as of this encounter
--- OUTSIDE RECORDS SUMMARY | 2024-11-07 08:04 | External Medical Summary | Summary of Care ---
Author Name Unknown Organization [facility] Address [address] [place] [address] Phone [phone] Care Team Providers Care Air Support Operations Operator Name Role Phone Doe Cash MD Primary Care Provi quinten Reason for Visit * Reason Comments Acute Pt having pain on th e left lower side of his ribs. Hurts really bad when he coughs. Sx started about 3 days ago. Encounter Details Date Type Department Care Team ([facility] Contact Info) Description 08/06/2024 10:20 AM EDT Office Visit [facility] [address] [place] [phone] Arminda Hilliard PA-C [address] [place] [address] Chest pain, unspecified type*; Atrial fibrillation with RVR (HCC) Allergies No known active allergiesdocumented as of this encounter (statuses as of 08/06/2024) Medications Medication Sig Dispensed Refills Start Date [...] the morning. In the morning.. 11/19/2023 Active [employer] 2 w/Device Kit Check blood sugars once [...] the morning. 30 Tablet 3 08/03/2024 Active Cefdinir 300 MG Oral Capsule (Omnicef) Take 1 Capsule by mouth in the morning and 1 Capsule before bedtime. Do all this for 4 days. 8 Capsule 08/02/2024 08/06/2024 Active Additional Information Patient not taking.Reported on 08/06/2024 documented as of this encounter (statuses as of 08/06/2024) Active Problems Problem Noted Date Diagnosed Date [...] to breakdown of skin 09/27/2023 Atherosclerosis of [place] co ronary artery without angina pectoris 02/09/2023 [...] (AAA) without rupture 06/06/2020 Unspecified atherosclerosis of [place] arteries of extremities, bilateral legs 02/15/2019 Type 2 diabetes mellitus wit h diabetic neuropathy, without long-term current use of insulin 09/08/2017 S/P right coronary artery (RCA) stent placement 09/20/2016 Paroxysmal atrial fibrillation 05/17/2016 Idiopathic chronic gout of multiple sites withou t zakhus 10/14/2014 Hx of nonmelanoma skin cancer 08/21/2012 Overview: L posterior shoulder BCC 12/2011 History of malignant melanoma of skin 08/16/2011 Overview: Back - , no SLN, unknown depth Hyperlipidemia associated with type 2 diabetes m ellitus 09/11/2010 After cataract not obscuring vision 04/07/2009 Overview: ICD-10 update of inactive term documented as of this encounter (statuses as of 08/06/2024) Resolved Problems Problem Noted Date Diagnosed Date Resolved Date Pneumonia of left lower lobe due to infectious organism 12/22/2023 08/06/2024 Cellulitis of left lower extremity 12/23/2021 12/25/2023 Type 2 diabetes mellitus wit h hemoglobin A1c goal of less than 7.5% 11/14/2019 01/14/2021 Skin ulcer of toe of left fo ot, limited to breakdown of skin 10/13/2018 02/15/2019 Coronary artery disease invo lving [place] heart without angina pectoris 06/01/2018 11/10/2021 DM type 2 causing neurological disease 01/24/2018 01/14/2021 Type 2 diabetes mellitus wit h diabetic nephropathy, without long-term current use of insulin 09/08/2017 09/08/2017 Atherosclerotic heart diseas e of [place] coronary artery with unspecified angina pectoris 09/08/2017 [...] as of this encounter (statuses as of 08/06/2024) Immunizations Name Administration Dates Next Due COVID-19 mRNA, LNP-s, No Pre serve, 2-Dose Series ([employer]) 08/13/2021,01/22/2021,12/27/2020 Covid-19, Mrna, Lnp-s, Pf, B ivalent, 30 Mcg, IM, 12 yrs and above ([employer]) 11/09/2022 Pneumococcal Conjugate Vacc, 13 Valent [...] 02/21/2024 Does the household have a re lar [...] Sign Reading Time Taken Comments Blood Pressure 146/82 08/06/2024 10:20 AM EDT Pulse 57 08/06/2024 10:20 AM EDT Temperature 36.4 C (97.5 F) 08/06/2024 10:20 AM E DT Respiratory Rate 18 08/06/2024 10:20 AM EDT Oxygen Saturation 97% 08/06/2024 10:20 AM EDT Inhaled Oxygen Concentration - - [...] as of this encounter Progress Notes * Arminda Hilliard PA-C - 08/06/2024 11:58 AM EDT SUBJECTIVE: Gomez Suarez is a 88 year old male. Chief Complaint Patient presents with Acute Pt having pain on the left lower side of his ribs. Hurts really bad when he coughs. Sx started about 3 days ago. HPI: Patient is an 88-year-old male who presents to clinic complaining of left-sided chest pain, worse with deep breathing and coughs. He reports this started approximately 3 days ago. Patient reports he also has been feeling somewhat fatigued. Patient was recently hospitalized at [facility] for treatment of left lower extremity cellulitis. He was discharged on August 02. Symptoms of left- sided chest pain and cough did not start until he was discharged home. He denies fevers or chills. He denies increased shortness of breath. No increased redness or swelling at his lower extremities. Energy is low and appetite is poor. Patient Active Problem List Diagnosis After cataract [...] use of insulin (HCC) Unspecified atherosclerosis of [place] arteries of extremities, bilateral legs (HCC) Abdominal aortic aneurysm (AAA) without rupture (HCC) Chronic kidney disease, stage 3a (HCC) 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 (HCC) Atherosclerosis of [place] coronary artery without angina pectoris Skin ulcer of right ankle, limited to breakdown of skin (HCC) Cellulitis COVID Elevated lactic acid level Fever, unknown origin Hematuria History of tonsillectomy Hypomagnesemia Hypoxia PVD (peripheral vascular disease) (HCC) Recurrent falls Retention of urine Urinary tract infection Elevated troponin Generalized weakness Encephalopathy acute Physical deconditioning Ambulatory dysfunction Atrial fibrillation with RVR (HCC) Type 2 myocardial infarction (HCC) Cellulitis of left lower extremity No current facility-administered medications for this visit. Current Outpatient Medications Medication Sig Dispense Refill aspirin enteric coated 81 MG TBEC Take 1 Tablet by mouth in the morning. ONETOUCH DELICA LANCETS FINE [facility] Check blood sugars once daily, E11.9, not using insulin, 100 Each3 Multiple Vitamin (ONE-A-DAY MENS) Tablet Take 1 Tablet by mouth in the morning. [employer] Ultra Blue In Vitro Strip (Glucose Blood) USE 1 STRIP TO CHECK GLUCOSE ONCE DAILY, dx E11.40 100 Strip 3 Allopurinol 300 MG Oral Tablet (Zyloprim) TAKE ONE TABLET BY MOUTH EVERY DAY (Patient taking differently: Take 1 Tablet by mouth at bedtime.) 90 Tablet 3 Omeprazole 20 MG Oral Capsule Delayed Release (PriLOSEC) TAKE 1 CAPSULE BY MOUTH IN THE MORNING. TAKE 1 HOUR BEFORE THE FIRST MEAL OF THE DAY. (Patient taking differently: Take 1 Capsule by mouth every other day.) 90 Capsule 2 Gabapentin 600 MG Oral Tablet (Neurontin) TAKE ONE TABLET BY MOUTH THREE TIMES A DAY 270 Tablet 1 Myrbetriq 50 MG Oral Tablet Extended Release 24 Hour Take 1 Tablet by mouth in the morning. In the morning.. I.Predictus Ultra 2 w/Device Kit Check blood sugars once daily 1 Kit 0 Atorvastatin Calcium 40 MG Oral Tablet (Lipitor) TAKE ONE TABLET BY MOUTH EVERY DAY 100 Tablet 1 Metoprolol Succinate ER 100 MG Oral Tablet Extended Release 24 Hour (toPROL XL) Take 1 Tablet by mouth in the morning and 1 Tablet before bedtime. 60 Tablet 3 Furosemide 40 MG Oral Tablet (Lasix) Take 1 Tablet by mouth in the morning. 30 Tablet 3 metFORMIN HCl ER 500 MG Oral Tablet Extended Release 24 Hour (Glucophage XR) Take 2 Tablets by mouth 2 times a day with morning and evening meals. 400 Tablet 1 Cefdinir 300 MG Oral Capsule (Omnicef) Take 1 Capsule by mouth in the morning and 1 Capsule before bedtime. Do all this for 4 days. (Patient not taking: Reported on 08/06/2024) 8 Capsule 0 Facility-Administered Medications Ordered in Other Visits Medication Dose Route Frequency Provider Last Rate Last Admin NSS 0.9% 500 mL bolus infusion 500 mL Peripheral IV Once Antelmo Quigley DO 500 mL/hr at 08/06/24 1156 500 mL at 08/06/24 1156 The patient's medication list was reviewed and updated as needed. 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 DM type 2, goal A1c below 7 09/20/2011 Gout 10/14/2014 Hyperlipidemia Other after-cataract, not obscuring vision 04/07/2009 Paroxysmal atrial fibrillation (HCC) PVD (peripheral vascular disease) ([facility]) Recurrent falls Recurrent UTI Urinary retention Vitreous degeneration 04/01/2010 Social History Socioeconomic History Marital status: Spouse name: Pretty Number of children: 4 Years of education: 10 Occupational History 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 Employer: [employer] Tobacco Use Smoking status: Former Current packs/day: 0.00 Average packs/day: 1 pack/day for 37.0 years (37.0 ttl pk-yrs) Types: Cigarettes, Cigars Start date: [birth year]/31/1951 Quit date: 10/31/1989 Years since quittin.7 Smokeless tobacco: Never Tobacco comments: Started smoking age - 17 - 18 Vaping Use Vaping status: Never Used Substance and Sexual Activity Alcohol use: No Drug use: Never Sexual activity: Yes Partners: Female Other Topics Concern Service No Seat Belt Yes Social History Narrative , 4 children, lots of grandchildren and great grandchildren Social Determinants of Health Financial Resource Strain: Low Risk (02/21/2024) Financial Resource Strain Do you have any trouble paying for your medications, or do you think you might in the future? (Adult - for ages 18 years and over): No Food Insecurity: No Food Insecurity (07/30/2024) Food Insecurity Do you need food for this week? (Adult - for ages 18 years and over): No Transportation Needs: No Transportation Needs (07/30/2024) Transportation Needs Do you have trouble getting a ride to medical visits or work? (Adult - for ages 18 years and over):Never True Has lack of transportation kept you from medical appointments, meetings, work, or from getting things needed for daily living? Check all that apply. (Adult - for ages 18 years and over): No Social Connections: Socially Integrated (02/21/2024) Social Connections How often do you feel lonely or isolated from those around you? (Adult - for ages 18 years and over): Never Housing Stability: Low Risk (07/30/2024) Housing Stability Do you currently live in a long-term or have no steady place to sleep at night? (Adult - for ages 18 years and over): No Do you think you are at risk of becoming homeless? (Adult - for ages 18 years and over): No Are you homeless or worried that you might be in the future? (Adult - for ages 18 years and over): No Family History Problem Relation Name Age of Onset Cancer Uncle (Unspecified) Cancer Son unknown Diabetes Daughter Other (Denies family history of AAA) Other OBJECTIVE: BP 146/82 | Pulse 57 | Temp 36.4 C (97.5 F) (Tympanic) | Resp 18 | SpO2 97% PHYSICAL EXAM: General: alert and ill looking Head: Normocephalic, No masses, lesions, tenderness or abnormalities Eye Exam: PERRLA, extraocular movements intact, conjunctiva are pink and non- injected, sclera clear Ears: External ears normal, Canals clear, TM's Normal Oropharynx: no exudate, no erythema, lips, buccal mucosa, and tongue normal, and mucous membranes are moist Lungs: chest symmetric with normal AP diameter, no chest deformities noted, no chest wall tenderness, lungs clear to auscultation Heart: LESLEY III-IV/, atrial fibrillation Extremities: less than 2 second capillary refill, no joint deformities, effusion, or inflammation, very mild redness at right ankle. Negative inderjit's sign, no redness or pain at calf ASSESSMENT AND PLAN: Chest pain, unspecified type (Primary) Atrial fibrillation with RVR (HCC) - new onset of left-sided chest pain exacerbated by cough and deep breathing in the setting of active a fib. Patient needs to be evaluated for potential cause of pain including pulmonary embolism. [facility]. Patient strongly declines ambulance transfer; He accepts transfer via POV with his driving. Follow Up: Return if symptoms worsen or fail to improve, for TO EMERGENCY DEPARTMENT FOR HIGHER LEVEL OF CARE. | For: TO EMERGENCY DEPARTMENT FOR HIGHER LEVEL OF CARE CC visit to: PCP: DOE CASH [address] [place] [phone] Arminda Hilliard PA-C documented in this encounter Nursing Notes * Denae Lan MED ASSIST - 08/06/2024 10:23 AM EDT The patient has been properly identified by confirmation of name and date of . Chief Complaint Patient presents with Acute Pt having pain on the left lower side of his ribs. Hurts really bad when he coughs. Sx started about 3 days ago. documented in this encounter Plan of Treatment Upcoming Encounters Date Type Department Care Team ([facility] st Contact Info) Description 08/07/2024 12:30 PM EDT [facility] Visit [facility] 132 [place] [address] Dhara Sky RN [address] [place] [address] 08/14/2024 9:00 AM EDT Office Visit [address] [phone] Doe Cash MD [address] [place] [phone] 08/17/2024 10:30 AM EDT Home Visit [facility] 132 [place] [address] Marjorie Summers CRNP [address] [place] [address] Masha Rutledge, Community Health Sorting Supervisor [address] [place] [address] 10/25/2024 7:00 AM [email or web address] Laboratory Laboratory Patient Service [facility] [address] [place] [phone] [address] 11/01/2024 11:40 AM EST [facility] Visit [facility] [phone] Doe Cash MD 68 [facility] [place] [phone] 11/21/2024 8:30 AM EST Office Visit Cardiology, [facility] [address] [place] [address] Sajan Griffith PA-C [address] [place] [address] 05/29/2025 9:45 AM EDT Office Visit [facility] [address] [place] [address] Constantino Weber DO 16 [place] [address] Health Maintenance Due Date Last Done Comments Colonoscopy 01/20/2016 01/19/2011, 12/29, 01/07/2011, Additional history exists Albumin/Creatinine Ratio 05/07/2023 022, 04/11/2021, 05/28/2020, Additional history exists Diabetic Foot Exam 06/08/2024 06/08/2023, 1 , 11/10/2021, Additional history exists COVID-19 Vaccine ( season) 2024 11/09/2022, 08/13/2021, 01/22/2021, Additional history exists HbA1c 01/16/2025 07/19/2024, 01/29, 02/10/2024, Additional history exists CKD PHOS USE SMARTSET 76684 02/09/202501/29, 02/10/2024, 01/06/2024, Additional history exists B-12 05/17/2025 05/17/2024, 05/05/2024, 07/07/2023, Additional history exists Diabetic Eye Exam 06/18/2025 06/18/2024, , 05/25/2024, Additional history exists Adult Wellness Visit 08/06/2025 08/06/2024 CKD HGB USE SMARTSET 31935 08/06/202508/06, 08/06/2024, 08/02/2024, Additional history exists Depression [...] as of this encounter Visit Diagnoses Diagnosis Chest pain, unspecified type- Primary Atrial fibrillation with RVR (HCC) Atrial fibrillation [...] the patient have Health Care Power of Radiation Oncology Therapist? Yes, not currently available Care Teams Air Support Operations Operator Relationship Specialty Start Date End Date Doe Cash MD [address] [place] [phone] PCP - General Family Medicine 07/19/24 documented as of this encounter"
--- OUTSIDE RECORDS SUMMARY | 2024-11-07 08:04 | External Medical Summary | Summary of Care ---
Author Name Unknown Organization [facility] Address [address] [place] [address] Phone [phone] Care Team Providers Care Insurance Billing Clerk Name Role Phone Yury Cash MD Primary Care Provi [facility] Reason for Visit * Reason Onset Date Comments [facility]: Maintenance 08/06/2024 Encounter Details Date Type Department Care Team (Late st Contact Info) Description 08/06/2024 Telephone [facility], [facility] [address] [facility] [place] [address] Sonja Mckeon, RN [address] [place], [place] [phone] [facility]: Maintenance Allergies No known [...] the morning. In the morning.. 11/19/2023 Active [employer] 2 w/Device Kit Check blood sugars once [...] Additional Information Patient not taking.Reported on 08/06/2024 Doxycycline Hyclate 100 MG Oral Capsule Take [...] to breakdown of skin 09/27/2023 Atherosclerosis of [place] co ronary artery without angina pectoris 02/09/2023 [...] (AAA) without rupture 06/06/2020 Unspecified atherosclerosis of [place] arteries of extremities, bilateral legs 02/15/2019 Type [...] 10/13/2018 02/15/2019 Coronary artery disease invo lving [place] heart without angina pectoris 06/01/2018 11/10/2021 DM type 2 causing neurological disease 01/24/2018 01/14/2021 Type 2 diabetes mellitus wit h diabetic nephropathy, without long-term current use of insulin 09/08/2017 09/08/2017 Atherosclerotic heart diseas e of [place] coronary artery with unspecified angina pectoris 09/08/2017 [...] mRNA, LNP-s, No Pre serve, 2-Dose Series ([employer]) 08/13/2021,01/22/2021,12/27/2020 Covid-19, Mrna, Lnp-s, Pf, B ivalent, 30 Mcg, IM, 12 yrs and above ([employer]) 11/09/2022 Pneumococcal Conjugate Vacc, 13 Valent [...] No 02/21/2024 Does the household have a [place] [...] Telephone Encounter - Sonja Mckeon RN - 08/06/2024 3:25 PM EDT [facility] ED [employer] Notification Date: 08/06/2024 Time: 3:25 PM [facility] Subprogram: No data was found Ga Episode Start Date: No linked episodes [facility] Enrollment Status: Currently Enrolled Action Taken on [employer] Alert and Outcome of ED Visit: Review ONLY: NEXT DAY [facility] Visit Scheduled In ED for LLE cellulitis Sonja Mckeon RN documented in this encounter Plan of Treatment Upcoming Encounters Date Type Department Care Team ([facility] st Contact Info) Description 08/07/2024 12:30 PM EDT Home Visit [facility], [facility] [address] [place] [address] Dhara Sky RN [facility] [place] [address] 08/14/2024 9:00 AM EDT Office Visit [address] [phone] Yury Cash MD [address] [place] [phone] 08/17/2024 10:30 AM EDT Home Visit [facility], [facility] [address] [place] [address] Marjorie Summers CRNP [address] [facility] [place] [address] Masha Rutledge, Community Health Judicial Law Clerk [facility] [place] [address] 10/25/2024 7:00 AM [facility] Laboratory Laboratory Patient Service [address] [phone] [place], [facility] [address] [place] [address] 11/01/2024 11:40 AM EST [facility] [address] [place] [phone] Yury Cash MD [address] [place] [phone] 11/21/2024 8:30 AM EST Office Visit Cardiology, [facility] [address] [facility] [place] [address] Sajan Griffith PA-C [address] [place] [address] 05/29/2025 9:45 AM EDT Office Visit [facility] Eye [facility] [address] [place], [place] [phone] Constantino Weber DO 16 [place] [address] Health Maintenance Due Date Last Done Comments Colonoscopy 01/20/2016 01/19/2011, 12/29, 01/07/2011, Additional history exists Albumin/Creatinine Ratio 05/07/2023 022, 04/11/2021, 05/28/2020, Additional history exists Diabetic Foot Exam 06/08/2024 06/08/2023, 1 , 11/10/2021, Additional history exists COVID-19 Vaccine ( season) 2024 11/09/2022, 08/13/2021, 01/22/2021, Additional history exists HbA1c 01/16/2025 07/19/2024, 01/29, 02/10/2024, Additional history exists CKD PHOS USE SMARTSET 87235 02/09/202501/29, 02/10/2024, 01/06/2024, Additional history exists B-12 05/17/2025 05/17/2024, 05/0 05/2024, 07/07/2023, Additional history exists Diabetic Eye Exam 06/18/2025 06/18/2024, , 05/25/2024, Additional history exists Adult Wellness Visit 08/06/2025 08/06/2024 CKD HGB USE SMARTSET 21444 08/06/202508/06, 08/06/2024, 08/02/2024, Additional history exists Depression [...] the patient have Health Care Power of Applied Research Director? Yes, not currently available Care Teams Insurance Billing Clerk Relationship Specialty Start Date End Date Yury Cash MD [address] [place] [phone] PCP - General Family Medicine 07/19/24 documented as of this encounter
--- OUTSIDE RECORDS SUMMARY | 2024-11-07 08:04 | External Medical Summary | Summary of Care ---
Author Name Unknown Organization [facility] Address [address] [place] [address] Phone [phone] Care Team Providers Care Light Oil Operator Name Role Phone Yury Cash MD Primary Care Provi [facility] Reason for Visit * Reason Onset Date Comments [facility]: Maintenance 08/06/2024 Encounter Details Date Type Department Care Team (Late st Contact Info) Description 08/06/2024 Telephone [facility], [facility] [address] [facility] [place] [address] Sonja Mckeon, RN [address] [place], [place] [phone] [facility]: Maintenance Allergies No known [...] the morning. In the morning.. 11/19/2023 Active [employer] 2 w/Device Kit Check blood sugars once [...] to breakdown of skin 09/27/2023 Atherosclerosis of [place] co ronary artery without angina pectoris 02/09/2023 [...] (AAA) without rupture 06/06/2020 Unspecified atherosclerosis of [place] arteries of extremities, bilateral legs 02/15/2019 Type [...] 10/13/2018 02/15/2019 Coronary artery disease invo lving [place] heart without angina pectoris 06/01/2018 11/10/2021 DM type 2 causing neurological disease 01/24/2018 01/14/2021 Type 2 diabetes mellitus wit h diabetic nephropathy, without long-term current use of insulin 09/08/2017 09/08/2017 Atherosclerotic heart diseas e of [place] coronary artery with unspecified angina pectoris 09/08/2017 [...] mRNA, LNP-s, No Pre serve, 2-Dose Series ([employer]) 08/13/2021,01/22/2021,12/27/2020 Covid-19, Mrna, Lnp-s, Pf, B ivalent, [...] Encounter - Sonja Mckeon RN - 08/06/2024 1:38 PM EDT Error documented in this encounter Plan of Treatment Upcoming Encounters Date Type Department Care Team (Late st Contact Info) Description 08/07/2024 9:00 AM EDT Scheduled Telephone [facility] at [address] [place] [address] Coordinator, [place] [address] [place] [address] 08/07/2024 12:30 PM EDT Home Visit [facility] [place], [facility] [place] [address] Dhara Sky RN 132 [facility] [address] 08/14/2024 9:00 AM EDT Office Visit [address] [phone] Yury Cash MD [address] [place] [phone] 08/17/2024 10:30 AM EDT Home Visit [facility], [facility] [address] [facility] [facility] [place] [address] Marjorie Summers CRNP [address] [place] [place] [address] Masha Rutledge, Community Health Overlay Plastician [address] [place] [address] 10/25/2024 7:00 AM EST Laboratory Laboratory Patient Service Center[address] [phone] [address] 11/01/2024 11:40 AM EST Office Visit [address] [phone] Yury Cash MD [address] [place] [phone] 11/21/2024 8:30 AM EST Office Visit Cardiology, [facility] [address] [place] [address] Sajan Griffith PA-C [address] [place] [address] 05/29/2025 9:45 AM EDT Office Visit [facility] 16 [place] [address] Constantino Weber DO 16 [place] [address] Health Maintenance Due Date Last Done Comments Colonoscopy 01/20/2016 01/19/2011, 12/29, 01/07/2011, Additional history exists Albumin/Creatinine Ratio 05/07/2023 022, 04/11/2021, 05/28/2020, Additional history exists Diabetic Foot Exam 06/08/2024 06/08/2023, 1 , 11/10/2021, Additional history exists COVID-19 Vaccine ( season) 2024 11/09/2022, 08/13/2021, 01/22/2021, Additional history exists HbA1c 01/16/2025 07/19/2024, 01/29, 02/10/2024, Additional history exists CKD PHOS USE SMARTSET 97241 02/09/202501/29, 02/10/2024, 01/06/2024, Additional history exists B-12 05/17/2025 05/17/2024, 05/0 05/2024, 07/07/2023, Additional history exists Diabetic Eye Exam 06/18/2025 06/18/2024, , 05/25/2024, Additional history exists Adult Wellness Visit 08/06/2025 08/06/2024 CKD HGB USE SMARTSET 24287 08/06/202508/06, 08/06/2024, 08/02/2024, Additional history exists Depression [...] the patient have Health Care Power of On Site Manager? Yes, not currently available Care Teams Light Oil Operator Relationship Specialty Start Date End Date Yury Cash MD [address] [place] [phone] PCP - General Family Medicine 07/19/24 documented as of this encounter
--- OUTSIDE RECORDS SUMMARY | 2024-11-07 08:04 | External Medical Summary | Summary of Care ---
Author Name Unknown Organization [facility] Address [address] [place] [address] Phone [phone] Care Team Providers Care Caddymaster Name Role Phone Yury Cash MD Primary Care Provi [facility] Reason for Visit * Reason Onset Date Comments [facility]: Maintenance 08/06/2024 Encounter Details Date Type Department Care Team (Late st Contact Info) Description 08/06/2024 Telephone [facility], [facility] [address] [facility] [place] [address] Sonja Mckeon, RN [address] [place], [place] [phone] [facility]: Maintenance Allergies No known [...] the morning. In the morning.. 11/19/2023 Active [employer] 2 w/Device Kit Check blood sugars once [...] to breakdown of skin 09/27/2023 Atherosclerosis of [place] co ronary artery without angina pectoris 02/09/2023 [...] (AAA) without rupture 06/06/2020 Unspecified atherosclerosis of [place] arteries of extremities, bilateral legs 02/15/2019 Type [...] 10/13/2018 02/15/2019 Coronary artery disease invo lving [place] heart without angina pectoris 06/01/2018 11/10/2021 DM type 2 causing neurological disease 01/24/2018 01/14/2021 Type 2 diabetes mellitus wit h diabetic nephropathy, without long-term current use of insulin 09/08/2017 09/08/2017 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 Patient in [facility]. Potential admit for cellulitis LLE PC placed documented in this encounter Plan of Treatment Upcoming Encounters Date Type Department Care Team (Late st Contact Info) Description 08/07/2024 9:00 AM EDT Scheduled Telephone ising at [place], [facility] [address] [place] [address] Coordinator, [facility] [address] [place] [address] 08/07/2024 12:30 PM EDT Home Visit [facility], [facility] [address] [place] [address] hDara Sky RN [address] [place] [address] 08/14/2024 9:00 AM EDT Office Visit [address] [phone] Yury Cash MD [address] [place] [phone] 08/17/2024 10:30 AM EDT Home Visit [facility], [facility] [address] [place] [address] Marjorie Summers CRNP [address] [place] [address] Masha Rutledge, Community Health Manga Artist [address] [place] [address] 10/25/2024 7:00 AM EST Laboratory Laboratory Patient Service Center[address] [phone] [facility] [address] [address] 11/01/2024 11:40 AM EST Office Visit [address] [phone] Yury Cash MD [address] [place] [phone] 11/21/2024 8:30 AM EST Office Visit Cardiology, [facility] [address] [place] [address] Sajan Griffith PA-C [address] [place] [address] 05/29/2025 9:45 AM EDT Office Visit [facility] [address] [place] [address] Constantino Weber DO [address] [place] [address] Health Maintenance Due Date Last Done Comments Colonoscopy 01/20/2016 01/19/2011, 12/29, 01/07/2011, Additional history exists Albumin/Creatinine Ratio 05/07/2023 022, 04/11/2021, 05/28/2020, Additional history exists Diabetic Foot Exam 06/08/2024 06/08/2023, 1 , 11/10/2021, Additional history exists COVID-19 Vaccine ( season) 2024 11/09/2022, 08/13/2021, 01/22/2021, Additional history exists HbA1c 01/16/2025 07/19/2024, 01/29, 02/10/2024, Additional history exists CKD PHOS USE SMARTSET 16177 02/09/202501/29, 02/10/2024, 01/06/2024, Additional history exists B-12 05/17/2025 05/17/2024, 05/0 05/2024, 07/07/2023, Additional history exists Diabetic Eye Exam 06/18/2025 06/18/2024, , 05/25/2024, Additional history exists Adult Wellness Visit 08/06/2025 08/06/2024 CKD HGB USE SMARTSET 28401 08/06/202508/06, 08/06/2024, 08/02/2024, Additional history exists Depression [...] the patient have Health Care Power of Insurance Marketing Specialist? Yes, not currently available Care Teams Caddymaster Relationship Specialty Start Date End Date Yury Cash MD [address] [place] [address] [place] [phone] PCP - General Family Medicine 07/19/24 documented as of this encounter
--- OUTSIDE RECORDS SUMMARY | 2024-11-07 08:04 | External Medical Summary | Summary of Care ---
Author Name Unknown Organization [facility] Address [address] [place] [address] Phone [phone] Care Team Providers Care Safety Manager Name Role Phone Yury Cash MD Primary Care Provi [facility] Reason for Visit * Reason Onset Date Comments [facility]: Maintenance 08/06/2024 Encounter Details Date Type Department Care Team (Late st Contact Info) Description 08/06/2024 Telephone [facility], [facility] [address] [facility] [place] [address] Sonja Mckeon, RN [address] [place], [place] [phone] [facility]: Maintenance Allergies No known [...] the morning. In the morning.. 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 Patient in [facility]. Potential admit for cellulitis LLE PC placed documented in this encounter Plan of Treatment Upcoming Encounters Date Type Department Care Team (Late st Contact Info) Description 08/07/2024 9:00 AM EDT Scheduled Telephone ising at [place], [facility] [address] [place] [address] Coordinator, [facility] [address] [place] [address] 08/07/2024 12:30 PM EDT [facility], [facility] [address] [place] [address] Dhara Sky RN [address] [place] [address] 08/14/2024 9:00 AM EDT Office Visit [address] [phone] Yury Cash MD [address] [place] [phone] 08/17/2024 10:30 AM EDT [facility] Visit [facility], [facility] [address] [place] [address] Marjorie Summers CRNP [address] [place] [address] Masha Rutledge, Community Health Addressing Machine Operator [address] [place] [address] 10/25/2024 7:00 AM EST Laboratory Laboratory [facility] Service Center[address] [phone] [facility] [address] [address] 11/01/2024 11:40 AM EST Office Visit [address] [phone] Yury Cash MD [address] [place] [phone] 11/21/2024 8:30 AM EST Office Visit Cardiology, [facility] [address] [place] [address] Sajan Griffith PA-C [address] [place] [address] 05/29/2025 9:45 AM EDT Office Visit [facility] Eye [facility] [address] [place] [address] Constantino Weber DO [address] [place] [address] Health Maintenance Due Date Last Done Comments Colonoscopy 01/20/2016 01/19/2011, 12/29, 01/07/2011, Additional history exists Albumin/Creatinine Ratio 05/07/2023 022, 04/11/2021, 05/28/2020, Additional history exists Diabetic Foot Exam 06/08/2024 06/08/2023, 1 , 11/10/2021, Additional history exists COVID-19 Vaccine ( season) 2024 11/09/2022, 08/13/2021, 01/22/2021, Additional history exists HbA1c 01/16/2025 07/19/2024, 01/29, 02/10/2024, Additional history exists CKD PHOS USE SMARTSET 24330 02/09/202501/29, 02/10/2024, 01/06/2024, Additional history exists B-12 05/17/2025 05/17/2024, 05/0 05/2024, 07/07/2023, Additional history exists Diabetic Eye Exam 06/18/2025 06/18/2024, , 05/25/2024, Additional history exists Adult Wellness Visit 08/06/2025 08/06/2024 CKD HGB USE SMARTSET 87802 08/06/202508/06, 08/06/2024, 08/02/2024, Additional history exists Depression [...] the patient have Health Care Power of Premium Note Interest Calculator Clerk? Yes, not currently available Care Teams Safety Manager Relationship Specialty Start Date End Date Yury Cash MD [address] [place] [address] [place] [phone] PCP - General Family Medicine 07/19/24 documented as of this encounter
--- OUTSIDE RECORDS SUMMARY | 2024-11-07 08:04 | External Medical Summary | Summary of Care ---
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 Name Role Phone Yury Cash MD Primary [facility] Reason for Referral * Evaluate & Treat - Unlimited Visits (Within 10 days (routine)) - Authorized Specialty Diagnoses / Procedures Referred By Contac t Referred To Contact Pain Management / Pain Medicine Diagnoses Sprain, sacroiliac Yury Cash MD [address] [place] [phone] Referral ID Status Reason Start Date Expiration Date Visits Requested Visits Authorized [id number] Authorized Specialty Services Required 08/06/2024 999 999 Question Answer Referral Priority Within 10 days (routine) Where should this appointment be scheduled? [facility] Reason for referral? Interventional Pain Management - (Injection) What condition is the patient being referred for? Lumbar Radiculopathy What is the preferred location to have this test performed? [facility] Comments Patient Name: Gomez Suarez Date of : 1935 Department Phone Number: MRI or CT (if unable to have a MRI) is recommended if any of the following apply: 1. Patient has neck or back pain with radiation to extremities. A previous MRI will be accepted if symptoms unchanged since prior MRI. 2. Spinal surgery since last MRI. If yes, order a MRI with and without contrast. 3. Hx or ongoing cancer treatment. Patient will need spine x-ray (Ap/Lat) for axial neck or back pain if not done previously. Fax No. [facility] [phone] or contact front window cashier [phone] Fax No. [facility] [phone] or contact front window cashier [phone] Fax No. [facility] [phone] or contact front window cashier [phone] Reason for Visit * Reason Onset Date Comments Adult Annual Wellness Visit, Initial Visit Adult Annual Wellness Visit, Initial Visit 08/06 Encounter Details Date Type Department Care Team ([facility] st Contact Info) Description 08/06/2024 9:00 AM EDT Nurse Only Ancillary [address] [phone] Have, Nurse Annual [address] [id number] Adult Annual Wellness Visit, Initial Visit... Allergies No known active allergiesdocumented as of [...] the morning. In the morning.. 11/19/2023 Active Evolero 2 w/Device Kit Check blood sugars once [...] 4 days. 8 Capsule 08/02/2024 08/06/2024 Active documented as of this encounter (statuses [...] to breakdown of skin 09/27/2023 Atherosclerosis of [place] co ronary artery without angina pectoris 02/09/2023 [...] (AAA) without rupture 06/06/2020 Unspecified atherosclerosis of [place] arteries of extremities, bilateral legs 02/15/2019 Type [...] 10/13/2018 02/15/2019 Coronary artery disease invo lving [place] heart without angina pectoris 06/01/2018 11/10/2021 DM type 2 causing neurological disease 01/24/2018 01/14/2021 Type 2 diabetes mellitus wit h diabetic nephropathy, without long-term current use of insulin 09/08/2017 09/08/2017 Atherosclerotic heart diseas e of [place] coronary artery with unspecified angina pectoris 09/08/2017 [...] mRNA, LNP-s, No Pre serve, 2-Dose Series ([employer]) 08/13/2021,01/22/2021,12/27/2020 Covid-19, Mrna, Lnp-s, Pf, B ivalent, [...] Sign Reading Time Taken Comments Blood Pressure 118/64 08/06/2024 9:11 AM EDT Pulse 64 08/06/2024 9:11 AM EDT Temperature 36.8 C (98.2 F) 08/06/2024 9:11 AM ED T Respiratory Rate 18 08/06/2024 9:11 AM EDT Oxygen Saturation 94% 08/06/2024 9:11 AM EDT Inhaled Oxygen Concentration - - Weight 98.7 kg (217 lb 9.6 oz) 08/06/2024 9:11 A M EDT Height 177.8 cm (5' 10") 08/06/2024 9:11 AM EDT Body Mass Index 31.22 08/06/2024 9:11 AM EDT documented in this [...] this encounter Patient Instructions * Patient Instructions* Maru White RN - 08/06/2024 9:01 AM EDT Hi Mr. Suarez, As your primary care physician, I know that regular visits with my patients who have several chronic conditions can go a long way in helping you stay healthy. Many times, the clinic team and I are in touch with you and/or other care team members between office visits to adjust medications, discuss any changes in your health, and review our care plan to make sure it is still meeting your needs. I am dedicated to helping you take a more active role in your overall care. It is important that there are resources available to you, so I created a personalized plan of care with a Health Calendar for you, which is included on the next page of this letter. Below is a list that summarizes your electronic health record: Health Maintenance Due: Health Maintenance Due Topic Date Due Colonoscopy 01/20/2016 Albumin/Creatinine Ratio 05/07/2023 Diabetic Foot Exam 06/08/2024 COVID-19 Vaccine ( season) 2024 Current Medication List: (as of Visit date not found (in office), 10/26/2022 (telemedicine) ) Current Outpatient Medications Medication Sig Dispense Refill aspirin enteric coated 81 MG TBEC Take 1 Tablet by mouth in the morning. ONETOUCH DELICA LANCETS FINE MISC Check blood sugars once daily, E11.9, not using insulin, 100 Each 3 Multiple Vitamin (ONE-A-DAY MENS) Tablet Take [...] (Patient taking differently: Take 1 Capsule by mouthevery other day.) 90 Capsule 2 metFORMIN HCl ER 500 MG Oral Tablet Extended Release 24 Hour (Glucophage XR) Take 2 Tablets by mouth 2 times a day with morning and evening meals. 400 Tablet 1 Gabapentin 600 MG Oral Tablet (Neurontin) TAKE ONE TABLET BY MOUTH THREE TIMES A DAY 270 Tablet1 Myrbetriq 50 MG Oral Tablet Extended Release [...] mouth in the morning. 30 Tablet 3 Cefdinir 300 MG Oral Capsule (Omnicef) Take 1 Capsule by mouth in the morning and 1 Capsule before bedtime. Do all this for 4 days. 8 Capsule 0 No current facility-administered medications for this visit. Current List of Allergies: (as of Visit date not found (in office), 10/26/2022 (telemedicine) ) Review of patient's allergies indicates: No Known Allergies Most Recent Lab Results: Results for orders placed or performed during the hospital encounter of 07/30/24 RESPIRATORY PATHOGEN PANEL, PCR Result Value Ref Range Adenovirus by PCR Negative Negative Coronavirus 229E by PCR Negative Negative Coronavirus HKU1 by PCR Negative Negative Coronavirus NL63 by PCR Negative Negative Coronavirus OC43 by PCR Negative Negative Coronavirus SARS-CoV-2 by PCR Negative Negative Human Metapneumovirus by PCR Negative Negative Rhinovirus/Enterovirus by PCR Negative Negative Influenza A Virus by PCR Negative Negative Influenza B Virus by PCR Negative Negative Parainfluenza Virus 1 by PCR Negative Negative Parainfluenza Virus 2 by PCR Negative Negative Parainfluenza Virus 3 by PCR Negative Negative Parainfluenza Virus 4 by PCR Negative Negative Respiratory Syncytial Virus by PCR Negative Negative Bordetella pertussis by PCR Negative Negative Chlamydia pneumoniae by PCR Negative Negative Mycoplasma pneumoniae by PCR Negative Negative Bordetella parapertussis by PCR Negative Negative COMPREHENSIVE METABOLIC PANEL Result Value Ref Range BUN 23 (H) 6 - 20 mg/dL CREATININE 0.9 0.6 - 1.2 mg/dL EGFR 79 >=60 mL/min SODIUM 139 135 - 146 mmol/L POTASSIUM 4.5 3.5 - 5.1 mmol/L CHLORIDE 99 98 - 107 mmol/L CO2 26 22 - 32 mmol/L ANION GAP 14 7 - 15 mmol/L GLUCOSE 181 (H) 70 - 120 mg/dL Albumin 4.0 3.8 - 5.0 g/dL AST 34 10 - 50 U/L Alkaline Phosphatase 83 35 - 130 U/L Bilirubin, Total 0.7 <=1.2 mg/dL CALCIUM 9.3 8.4 - 10.2 mg/dL Protein 7.1 6.0 - 8.3 g/dL ALT 53 (H) 10 - 50 U/L BNP, NT-PRO Result Value Ref Range BNP, NT-Pro 2,848 (H) <300 pg/mL TROPONIN T, HIGH SENSITIVITY Result Value Ref Range Troponin T, High Sensitivity 183 (HH) <=22 ng/L LACTATE, WHOLE BLOOD WITH REFLEX IF ABNORMAL Result Value Ref Range Lactate, Whole Blood 2.1 (H) 0.4 - 2.0 mmol/L LIPASE Result Value Ref Range Lipase 17 13 - 60 U/L PT INR Result Value Ref Range Prothrombin Time 14.7 11.6 - 15.2 seconds INR 1.2 0.8 - 1.2 CBC Result Value Ref Range WBC 14.22 (H) 4.00 - 10.80 K/uL RBC 4.23 4.50 - 5.25 M/uL HGB 10.7 (L) 14.0 - 16.8 g/dL HCT 35.4 (L) 40.0 - 48.4 % MCV 83.7 82.0 - 99.5 fL MCH 25.3 27.0 - 34.0 pg MCHC 30.2 32.0 - 36.0 g/dL RDW 17.7 11.5 - 15.5 % PLT 181 140 - 400 K/uL MPV 12.7 6.6 - 11.1 fL DIFFERENTIAL, AUTOMATED Result Value Ref Range WBC 14.22 (H) 4.00 - 10.80 K/uL Neutrophils % 68.8 40.0 - 75.0 % Lymphocytes % 16.4 (L) 18.0 - 42.0 % Monocytes % 14.3 (H) 1.0 - 11.0 % Eosinophils % 0.4 0.0 - 6.0 % Basophils % 0.1 0.0 - 2.0 % Absolute Neutrophils 9.80 (H) 1.80 - 7.70 K/uL Absolute Lymphocytes 2.33 1.00 - 4.80 K/ul Absolute Monocytes 2.03 (H) 0.00 - 1.10 K/uL Absolute Eosinophils 0.05 0.00 - 0.70 K/uL Absolute Basophils 0.01 0.00 - 0.20 K/uL TROPONIN T, HIGH SENSITIVITY Result Value Ref Range Troponin T, High Sensitivity 174 (HH) <=22 ng/L CULTURE, BLOOD Result Value Ref Range Blood Culture Growth No growth CULTURE, BLOOD Result Value Ref Range Blood Culture Growth No growth LACTATE,WHOLE BLOOD Result Value Ref Range Lactate, Whole Blood 1.9 0.4 - 2.0 mmol/L BASIC METABOLIC PANEL Result Value Ref Range BUN 15 6 - 20 mg/dL CREATININE 1.0 0.6 - 1.2 mg/dL EGFR 76 >=60 mL/min SODIUM 133 (L) 135 - 146 mmol/L POTASSIUM 3.9 3.5 - 5.1 mmol/L CHLORIDE 97 (L) 98 - 107 mmol/L CO2 26 22 - 32 mmol/L ANION GAP 10 7 - 15 mmol/L GLUCOSE 158 (H) 70 - 120 mg/dL CALCIUM 8.4 8.4 - 10.2 mg/dL CBC Result Value Ref Range WBC 9.70 4.00 - 10.80 K/uL RBC 3.68 4.50 - 5.25 M/uL HGB 9.5 (L) 14.0 - 16.8 g/dL HCT 30.7 (L) 40.0 - 48.4 % MCV 83.4 82.0 - 99.5 fL MCH 25.8 27.0 - 34.0 pg MCHC 30.9 32.0 - 36.0 g/dL RDW 17.6 11.5 - 15.5 % PLT 132 (L) 140 - 400 K/uL MPV 11.9 6.6 - 11.1 fL TROPONIN T, HIGH SENSITIVITY Result Value Ref Range Troponin T, High Sensitivity 116 (HH) <=22 ng/L BASIC METABOLIC PANEL Result Value Ref Range BUN 16 6 - 20 mg/dL CREATININE 1.0 0.6 - 1.2 mg/dL EGFR 75 >=60 mL/min SODIUM 137 135 - 146 mmol/L POTASSIUM 3.7 3.5 - 5.1 mmol/L CHLORIDE 100 98 - 107 mmol/L CO2 27 22 - 32 mmol/L ANION GAP 10 7 - 15 mmol/L GLUCOSE 143 (H) 70 - 120 mg/dL CALCIUM 8.6 8.4 - 10.2 mg/dL CBC Result Value Ref Range WBC 8.13 4.00 - 10.80 K/uL RBC 3.77 4.50 - 5.25 M/uL HGB 9.5 (L) 14.0 - 16.8 g/dL HCT 31.8 (L) 40.0 - 48.4 % MCV 84.4 82.0 - 99.5 fL MCH 25.2 27.0 - 34.0 pg MCHC 29.9 32.0 - 36.0 g/dL RDW 17.9 11.5 - 15.5 % PLT 130 (L) 140 - 400 K/uL MPV 12.2 6.6 - 11.1 fL MAGNESIUM Result Value Ref Range Magnesium 2.0 1.5 - 2.6 mg/dL DIGOXIN LEVEL Result Value Ref Range Digoxin Level <0.4 (L) 0.5 - 1.1 ng/mL BASIC METABOLIC PANEL Result Value Ref Range BUN 13 6 - 20 mg/dL CREATININE 0.9 0.6 - 1.2 mg/dL EGFR 79 >=60 mL/min SODIUM 134 (L) 135 - 146 mmol/L POTASSIUM 3.8 3.5 - 5.1 mmol/L CHLORIDE 99 98 - 107 mmol/L CO2 26 22 - 32 mmol/L ANION GAP 9 7 - 15 mmol/L GLUCOSE 156 (H) 70 - 120 mg/dL CALCIUM 8.9 8.4 - 10.2 mg/dL CBC Result Value Ref Range WBC 9.48 4.00 - 10.80 K/uL RBC 4.16 4.50 - 5.25 M/uL HGB 10.7 (L) 14.0 - 16.8 g/dL HCT 35.0 (L) 40.0 - 48.4 % MCV 84.1 82.0 - 99.5 fL MCH 25.7 27.0 - 34.0 pg MCHC 30.6 32.0 - 36.0 g/dL RDW 18.1 11.5 - 15.5 % PLT 180 140 - 400 K/uL MPV 12.7 6.6 - 11.1 fL ECHO, COMPLETE (2D), TRANS-THORACIC Result Value Ref Range LEFT VENTRICULAR EJECTION FRACTION 65 % GLUCOSE METER, POINT OF CARE Result Value Ref Range GLUCOSE - POCT 166 (H) 70 - 120 mg/dL GLUCOSE METER, POINT OF CARE Result Value Ref Range GLUCOSE - POCT 129 (H) 70 - 120 mg/dL GLUCOSE METER, POINT OF CARE Result Value Ref Range GLUCOSE - POCT 127 (H) 70 - 120 mg/dL GLUCOSE METER, POINT OF CARE Result Value Ref Range GLUCOSE - POCT 152 (H) 70 - 120 mg/dL GLUCOSE METER, POINT OF CARE Result Value Ref Range GLUCOSE - POCT 140 (H) 70 - 120 mg/dL GLUCOSE METER, POINT OF CARE Result Value Ref Range GLUCOSE - POCT 132 (H) 70 - 120 mg/dL GLUCOSE METER, POINT OF CARE Result Value Ref Range GLUCOSE - POCT 165 (H) 70 - 120 mg/dL GLUCOSE METER, POINT OF CARE Result Value Ref Range GLUCOSE - POCT 122 (H) 70 - 120 mg/dL GLUCOSE METER, POINT OF CARE Result Value Ref Range GLUCOSE - POCT 175 (H) 70 - 120 mg/dL GLUCOSE METER, POINT OF CARE Result Value Ref Range GLUCOSE - POCT 138 (H) 70 - 120 mg/dL GLUCOSE METER, POINT OF CARE Result Value Ref Range GLUCOSE - POCT 160 (H) 70 - 120 mg/dL GLUCOSE METER, POINT OF CARE Result Value Ref Range GLUCOSE - POCT 137 (H) 70 - 120 mg/dL GLUCOSE METER, POINT OF CARE Result Value Ref Range GLUCOSE - POCT 144 (H) 70 - 120 mg/dL Sincerely, Yury Cash MD 08/06/2024 [facility] Calendar (as of Visit date not found (in office), 10/26/2022 (telemedicine) ) Care needs Care needs Last completed Due next Colonoscopy 01/19/2011 01/20/2016 Urine albumin/creatinine test 05/07/2022 05/07/2023 Diabetic Foot Exam 06/08/2023 06/08/2024 COVID-19 Vaccine ( season) 2022 07/01/2024 A1C blood sugar test 07/19/2024 01/16/2025 Yearly B-12 vitamin test 05/17/2024 05/17/2025 Diabetic Eye Exam 06/18/2024 06/18/2025 Adult Wellness Visit 08/06/2024 08/06/2025 Diphtheria, tetanus & pertussis vaccines (3 - Td or Tdap) 04/02/2023 04/02/2033 As you look over the recommended services, be sure to check with your insurance company to determine what's covered. [employer] is a great tool that helps you review your medical record online, including test results, doctor notes and your health summary. You can also schedule appointments with me and other members of your care team, request prescription refills and ask for advice related to your medical conditions at [email or web address]. Patient Instructions - Fall Prevention (This education is for all patients over 65 regardless of symptoms) Remember to take your current medications as prescribed. In order to prevent falls, you are encouraged to: Exercise Utilize assistive/adaptive devices Avoid multifocal lenses when walking Avoid hazards in home Maintain a regular toileting schedule Any questions please contact our office. Preventing Falls in the Home (This education is for all patients over 65 regardless of symptoms) As you get older, falls are more likely. Thats because your reaction time slows. Your muscles and joints may also get stiffer, making them less flexible. Illness, medications, and vision changes can also affect your balance. A fall could leave you unable to live on your own. To make your home safer, follow these tips: Floors Put nonskid pads under area rugs Remove throw rugs Replace worn floor coverings Tack carpets firmly to each step on carpeted stairs. Put nonskid strips on the edges of uncarpeted stairs Keep floors and stairs free of clutter and cords Arrange furniture so there are clear pathways Clean up any spills right away Bathrooms Install grab bars in the tub or shower Apply nonskid strips or put a nonskid rubber mat in the tub or shower Sit on a bath chair to bathe Use bathmats with nonskid backing Lighting Keep a flashlight in each room Put a nightlight along the pathway between the bedroom and the bathroom [employer] Patient Education Copyright 2008 - 2010 [employer] except where otherwise noted Preventing Falls: Exercises to Improve Balance, Flexibility, Strength, and Staying Power (This education is for all patients over 65 regardless of symptoms) Certain types of exercises may help make you less likely to fall. Try the ones below. Or do other exercises that your healthcare provider suggests. Depending on your health, you may need to start slowly. Dont let that stop you. Even small amounts of exercise can help you. Be sure to talk to yourhealthcare provider before starting any exercise program. Improve Balance Many types of exercise can help improve balance. Lamine chi and yoga are good examples. Heres another one to try. You can do it anytime and almost anywhere. Stand next to a counter or solid support. Push yourself up onto your tiptoes. Hold for 5 seconds. If you start to lose your balance, hold on to the counter. Rest and repeat 5 times. Work up to holding for 20 to 30 seconds, if you can. Increase Flexibility Being more flexible makes it easier for you to move around safely. Try exercises like the seated hamstring stretch. Sit in a chair and put one foot on a stool. Straighten your leg and reach with both hands down either side of your leg. Reach as far down your leg as you can. Hold for about 20 seconds. Go back to the starting position. Then repeat 5 times. Switch legs. Build Strength Resistance exercises help build strength. You can do them without equipment. Or you can use weights, elastic bands, or special machines. One such exercise is called the biceps curl. You can hold a 1 pound weight or even a can of soup. Do this exercise at least 3 times a week. Strive for everyday. Sit up straight in a chair. Keep your elbow close to your body and your wrist straight. Bend your arm, moving your hand up to your shoulder. Then slowly lower your arm. Repeat 5 times. Switch to the other arm. Build Your Staying Power Aerobic exercises make your heart and lungs stronger so you can keep moving longer. Walking and swimming are two of the best types of exercises you can do. Using a stationary bike is great, too. Find an aerobic exercise that you enjoy. Start slowly and build up. Even 5 minutes is helpful. Aimfor a goal of 30 minutes, at least 3 times a week. You dont have to do 30 minutes in one session. Break it up and walk a little throughout the day. More Helpful Tips Start easy. Slowly work up to doing more. Talk with your healthcare provider about the best exercises for you. Call senior centers or health clubs about exercise programs. If needed, have a family member watch you walk every so often to check your stability. Exercise with a friend. Choose an activity you both enjoy. Try exercises that you can do anytime, anywhere. Here are two examples. Have someone with you when you first try these: Practice walking by placing one foot right in front of the other. Stand up and sit down 10 times. Repeat this throughout the day. Mei Patient Education Copyright 2008 - 2010 Mei except where otherwise noted. Preventing Falls: Moving Safely Using a Cane or Walker (This education is for all patients over 65 regardless of symptoms) Keep the cane away from your feet so you dont trip. A walking aid, such as a cane or walker, can help you stay more independent and avoid falls. Remember to keep your walking aid within easy reach when youre in a chair or in bed. And learn how to use it safely so you dont injure yourself. Using a Cane If you have a stronger side, hold the cane on that side. Get your balance. Move the cane and your weaker leg forward. Support your weight on both the cane and your weaker side. Step with your stronger leg. Start again from step 1. If youre using a folding walker, be sure you know how to lock it open. Check that its locked open before each use. Using a Walker Roll the walker (or lift it, if youre using one without wheels) forward about 12 inches. Step forward with your weaker leg first. Use the walker to help keep your balance. Bring your other foot forward to the center of the walker. Start again from step 1. Helpful Tips Check with your healthcare provider about the right walking aid to use. Ask about a walker with a seat attached. Check the tips of your cane or walker to make sure they have nonskid covers. Move slowly from room to room. Dont cooper. Sit down to get dressed. Use a leif pack or backpack to keep your hands free. Get help for jobs that mean climbing, even on a stepstool. Me[employer] Patient Education Copyright 2008 - 2010 Mei except where otherwise noted. Treating Urinary Incontinence in Men (This education is for all patients over 65 regardless of symptoms) You can't always control the release of urine. You may leak urine. Or you may not be able to hold your urine until you can get to a bathroom. This is called urinary incontinence. The problem can be managed. Talk to your doctor about your treatment options. Taking Medications Prescription medications may help you. They may: Help the sphincter to work better. (This is the muscle that closes to keep urine from leaking out of the bladder.) Help stop the bladder from niecy too often to push urine out. Help the bladder muscles contract with more force. Help relax the sphincter muscle and allow urine to flow more freely. Making Changes to Your Routine Certain changes in your daily routine may help. These include: Avoiding caffeine and alcohol. Using timed voiding. This is following a schedule for drinking fluids and urinating. Doing Kegel exercises daily. These exercises involve tightening the muscles in your sphincter and around your bladder to help strengthen them. Your doctor can explain how to do them. Using a Catheter A catheter is a narrow tube that is inserted through the urethra into the bladder. It drains urine.A condom catheter covers the penis. It channels urine into a collection bag. It is worn most of thetime. Intermittent catheterization means inserting a catheter to drain the bladder, then removing it. This is done on a regular schedule. Having Surgery If other options don't work, surgery may be recommended. If surgery is an option, your healthcare provider can discuss it with you and explain its risks and benefits. Healing After Prostate Surgery Surgery on the prostate gland can cause incontinence. Most often, the incontinence is only for a short time. It clears up when healing is complete. Very rarely, prostate surgery can result in permanent incontinence. documented in this encounter Progress Notes * Maru White RN - 08/06/2024 9:00 AM EDT AD8 Dementia Screening Interview Person answering questions: patient Remember, "Yes, a change" indicates that there has been a change in the last several years caused by cognitive (thinking and memory) problems 1. Problems with judgement (eg: problems making decisions, bad financial decisions, problems with thinking). No (0) 2. Less interest in hobbies/activities. No (0) 3. Repeats the same things over and over (questions, stories, or statements). No (0) 4. Trouble learning how to use a tool, appliance, or gadget (eg: VCR, computer, microwave, remote control). No (0) 5. Forgets correct month or year. No (0) 6. Trouble handling complicated financial affairs (eg: balancing checkbook, income taxes, paying bills). No (0) 7. Trouble remembering appointments. No (0) 8. Daily problems with thinking and/or memory. No (0) TOTAL AD8: 0 - AD8 Dementia Screening Score The final score is a sum of the number items marked "Yes, A Change". 0 - 1: Normal cognition; 2 or greater: Cognitive impairments is likely to be present - further testing required Adult Annual Wellness Visit: Gomez Suarez is a 88 year old male who presents for an Adult Annual Wellness Visit. Depression Screening: Did the patient complete the screening questionnaire for Depression? Yes Is the patient's total score for Depression 15 or greater? No, no further intervention needed, unless requested by patient. Did the patient answer positively to the suicide question? No, no further intervention needed, unless requested by patient. In general, compared to other people your age, what would you say that your health is? Very Good Ht Readings from Last 1 Encounters: 08/06/24 1.778 m (5' 10") Wt Readings from Last 1 Encounters: 08/06/24 98.7 kg (217 lb 9.6 oz) Body Mass Index: BMI Greater than 30 Body mass index is 31.22 kg/m. 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 DM type 2, goal A1c below 7 09/20/2011 Gout 10/14/2014 Hyperlipidemia Other after-cataract, not obscuring vision 04/07/2009 Paroxysmal atrial fibrillation (HCC) PVD (peripheral vascular disease) ([facility]) Recurrent falls Recurrent UTI Urinary [...] performed by Bharath Monaco MD at OR [facility] [place] REMOVAL OF TONSILS, UNDER AGE 13 approx age 11 SACROILIAC JOINT INJECT W/GUIDANCE Bilateral 05/09/2023 INJECTION SACROILIAC JOINT performed by Roberto Li DO at OR [facility] SACROILIAC JOINT INJECT W/GUIDANCE Bilateral 09/29/2023 INJECTION SACROILIAC JOINT performed by Roberto Li DO at OR [facility] Family History Problem Relation Name Age of Onset Cancer Uncle (Unspecified) Cancer Son unknown Diabetes Daughter Other (Denies family history of AAA) Other Has patient ever had cancer? History of cancer, type: melanoma and location: neck Social History Tobacco Use Smoking status: Former [...] Vaping/E-Cigarette Devices Disposable No Pre-filled Pod No Tobacco/Alcohol screening completed today? Yes Hospital Care: Admissions (within the last year): Hospital, Location: [facility] Date of Admission: 07/2024 ER within 30 days: Yes, when: 07/30/2024 and where: [facility] Does the patient have an Advance Directives/Living Will? No. Does the patient want information? No.Patient declined information Last Physical Exam: Last physical exam: 07/19/2024 Does patient see primary provider regularly? Yes Does patient see other providers? Yes, Specialist Patient Care Team updated? Yes Review of patient's allergies indicates: No Known Allergies Immunization History Administered Date(s) Administered COVID-19 mRNA, LNP-s, No Preserve, 2-Dose Series ([employer]) 12/27/2020, 01/22/2021, 08/13/2021 Covid-19, Mrna, Lnp-s, Pf, [...] (Adult) 04/08/2014 Zoster Vaccine Recombinant (Shingrix) 11/16/2019 Current Outpatient Medications Medication Sig Dispense Refill [...] morning and evening meals. 400 Tablet 1 Gabapentin 600 MG Oral Tablet (Neurontin) TAKE ONE TABLET BY MOUTH THREE TIMES A DAY 270 Tablet 1 Myrbetriq 50 MG Oral Tablet Extended Release 24 Hour Take 1 Tablet by mouth in the morning. In the morning.. Evolero 2 w/Device Kit Check blood sugars once [...] mouth in the morning. 30 Tablet 3 Cefdinir 300 MG Oral Capsule (Omnicef) Take 1 Capsule by mouth in the morning and 1 Capsule before bedtime. Do all this for 4 days. 8 Capsule 0 No current facility-administered medications for this visit. Patient Active Problem List Diagnosis After cataract [...] use of insulin (HCC) Unspecified atherosclerosis of [place] arteries of extremities, bilateral legs (HCC) Abdominal aortic aneurysm (AAA) without rupture ([facility]) Chronic kidney disease, stage 3a ([facility]) 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 ([facility]) Atherosclerosis of [place] coronary artery without angina pectoris Skin ulcer of right ankle, limited to breakdown of skin (HCC) Cellulitis COVID Elevated lactic acid level Fever, unknown origin Hematuria History of tonsillectomy Hypomagnesemia Hypoxia PVD (peripheral vascular disease) ([facility]) Recurrent falls Retention of urine Urinary tract infection Pneumonia of left lower lobe due to infectious organism Elevated troponin Generalized weakness Encephalopathy acute Physical deconditioning Ambulatory dysfunction Atrial fibrillation with RVR ([facility]) Type 2 myocardial infarction (HCC) Cellulitis of left lower extremity Medication Compliance: Patient is able to obtain all of his medications? Yes Patient takes medications as prescribed? Yes Patient manages own medications: Yes Patient uses a pill box? Yes, refill(s) completed by spouse Dental Exam: No patient has no teeth Eye Screening: Yes: Every year Are you having trouble with hearing? No Do you use an assistive device to help your hearing? No Exercise Screening: does not exercise regularly Nutrition Assessment: Eats a balanced diet and Eats three meals a day Pain Screening: Are you having any pain? Yes. Pain Scale: 4 out of 10; Location: left upper abdomen, ribs, When: acute, Duration: since home from hospital, Aggravating Factors: cough, Relieved by: nothing Sleep Screening Tool 'STOP': Do you snore? Yes Do you feel fatigued during the day? Yes Do you wake up feeling like you haven't slept? Yes Have you been told you stop breathing at night? No Do you gasp for air or choke while sleeping? No Have you been told you have Sleep Apnea? No Do you have high blood pressure or are on medication(s) to control high blood pressure? Yes SCORE: If you check YES to two or more questions, make a referral for Obstructive Sleep Apnea, patient declines sleep medicine referral Patient and Caregiver Support System: Patient lives with a spouse Means of Transportation: Family transports Patient lives in One Story - with basement stairs: with railing. Patient does not go downstairs Community Resources: Pace Functional Status and ADL Skills: Has patient ever had an amputation? No Functional Assessment: 80- Normal activity with effort: some symptoms of disease Ambulation: Patient ambulates with assistive device. Walker Dressing: Gets clothes and dresses without any assistance: Independent Able to move freely in chair or bed including turning over: Independent Repositioning (bed or chair): Not applicable Transfers: Independent Toileting: Goes to bathroom, uses toilet, arranges clothes and returns without any assistance: Independent Toileting: continent of bowel, incontinent of bladder, and briefs Feeding: Self Bathing: Self; walk-in shower, no grab bars, no shower chair Requires none assistance with ADLs. Instrumental ADL's: Shopping: spouse Housekeeping: spouse Handling Finances: spouse DME Vendor Name: Not Applicable Fall Risk Assessment: Can the patient demonstrate that he can stand from a sitting position? Yes Has the patient had a fall within the last 6 months? Yes Does the patient have a problem with his gait or balance? Yes Does the patient take 4 or more prescription medicines? Yes Does the patient use sedatives or narcotics? No Fall Risk Factors Present: History of falls within the past 6 months Yes Cause of fall: Patient lost balance. Uses more than 4 medications Uses assistive devices Balance or gait disturbances Visually impaired Older than age 70 Jwj-Rv-wkp-Go Test: Time began at 0900. Patient stood from sitting position and walked approximately 10 feet, returned and sat down. Total time for tkx-hm-nsj-go test was 9 seconds. Bbz-Je-yub-Go Test completed? Yes Gender Specific Preventative Plan: Health Maintenance Topic Date Due Colonoscopy 01/20/2016 Albumin/Creatinine Ratio 05/07/2023 Diabetic Foot Exam 06/08/2024 COVID-19 Vaccine ( season) 2024 HbA1c 01/16/2025 CKD PHOS USE SMARTSET 00693 02/09/2025 B-12 05/17/2025 Diabetic Eye Exam 06/18/2025 CKD HGB USE SMARTSET 64746 08/02/2025 Depression Screening 08/06/2025 Adult Wellness Visit 08/06/2025 DTap/Tdap Vaccines (3 - Td or Tdap) 04/02/2033 Influenza Vaccine (FLU shot) Completed Zoster Vaccines Completed Pneumococcal Vaccine: 65+ Years Completed Hepatitis B Vaccine Aged Out MENINGOCOCCAL (MENACTRA/MENVEO) Aged Out HPV (Gardasil) Vaccine Aged Out RETIRED - COLONOSCOPY-EVERY 5 YRS AGES 18-100 Discontinued Patient has been verbally educated on the need or importance of Cholesterol, Colon Cancer Screening, Creatinine, Diabetic Eye Exam, Diabetic Foot Exam, GFR, Glucose, Hemoglobin, Hemoglobin A1c, Potassium, Tdap Vaccine, Pneumococcal Vaccine, Shingles Vaccine, and Flu Vaccine Pt has completed the covid vaccines: Yes, x4 Routine general medical examination at a health care facility (Primary) Hyperlipidemia associated with type 2 diabetes mellitus (HCC) Lab Results Component Value Date/Time LDL CHOLESTEROL (CALCULATED) - [facility] UNINTERPRETABLE RESULT 06/27/2019 07:13 AM LDL CHOLESTEROL (DIRECT MEASURE) - [facility] 59 01/06/2024 07:28 AM LDL CHOLESTEROL (DIRECT MEASURE) - [facility] 69 05/28/2020 08:46 AM LDL CHOLESTEROL (DIRECT MEASURE) - [facility] 100 08/22/2013 10:52 AM - Med reconciliation completed and compliance discussed. - pt to continue present medications. Type 2 diabetes mellitus with diabetic neuropathy, without long-term current use of insulin (HCC) Hemoglobin AIC Results: Lab Results Component Value Date/Time HEMOGLOBIN A1C - [facility] 7.6 (H) 01/06/2024 07:28 AM HEMOGLOBIN A1C - [facility] 7.5 (H) 12/23/2023 05:51 AM HEMOGLOBIN A1C - [facility] 8.0 (H) 07/07/2023 07:22 AM HEMOGLOBIN A1C - [facility] 7.1 (H) 05/28/2020 08:46 AM HEMOGLOBIN A1C - [facility] 6.9 (H) 11/14/2019 03:56 PM HEMOGLOBIN A1C - [facility] 7.0 (H) 06/27/2019 07:13 AM HEMOGLOBIN A1C POCT - [facility] 7.1 (H) 07/19/2024 11:07 AM - Med reconciliation completed and compliance discussed. - pt to continue present medications. Idiopathic chronic gout of multiple sites without tophus - Med reconciliation completed and compliance discussed. - pt to continue present medications. Paroxysmal atrial fibrillation (HCC) - Med reconciliation completed and compliance discussed. - pt to continue present medications. Atherosclerosis of [place] coronary artery of [place] heart without angina pectoris - Med reconciliation completed and compliance discussed. - pt to continue present medications. Retention of urine - Med reconciliation completed and compliance discussed. - pt to continue present medications. History of malignant melanoma of skin Follow Up: Return in 1 year (on 08/06/2025) for 12 month Subsequent Adult Wellness Visit. | For: 12 month Subsequent Adult Wellness Visit | Check-out note: 12 month Subsequent Adult Wellness Visit Patient scheduled for an acute appointment with Arminda Hilliard PA-C as he was complaining of leftupper abdomen/rib pain since coming home from the hospital. Would patient like to schedule next AWV visit? Yes Maru White RN Fall Risk Plan of Care Documentation: - Current medications reconciled Patient encouraged to: - Exercise - Provide education materials for Core strengthening - Utilize assistive/adaptive devices - Provide education materials - Avoid multifocal lenses when walking - Avoid hazards in home - Provide education materials - Maintain a regular toileting schedule Maru White RN 08/06/2024 Urinary Incontinence Plan of Care Documentation: (This education is for all patients over 65 regardless of symptoms) Current medications reconciled. Patient encouraged to: Practice kegal exercises Provide education materials Use the restroom every 2 hours throughout the day Limit caffeine, alcohol, spicy foods and acidic foods Keep a bladder diary Limit fluid intake 3-4 hours before bed Lose weight Prevent constipation Take fluid pills at a time when you can get to the bathroom quickly Control sugar better if diabetic Limit fluid intake to 60 oz. per day Wear support stockings (TEDs)if you have edema Maru White RN 08/06/2024 documented in this encounter Miscellaneous Notes * Pt Handout (on AVS) - Maru White RN - 08/06/2024 9:42 AM EDT [id number] Fall Prevention Falls often take place due to slipping, tripping, or losing your balance. Millions of people fall every year and injure themselves. Among older adults in the [place] falls are the most common cause of traumatic brain injuries. Every 20 minutes, an older adult dies from a fall. Here are ways to reduceyour risk of falling again: Think about your fall. Was there anything that caused your fall that can be fixed, removed, or replaced? Make your home safe by keeping walkways clear of objects you may trip over, such as electrical cords. Use nonslip pads under rugs. Don't use area rugs or small throw rugs. Use nonslip mats in bathtubs and showers. Hang grab rails by the toilet and inside and outside the shower. Install handrails and lights on staircases. The handrails should be on both sides of the stairs. Use night lights. Don't walk in poorly lit areas. Don't stand on chairs or wobbly ladders. Use care when reaching overhead or looking up. This position can cause a loss of balance. Be sure your shoes fit well, are in good condition, and have nonslip bottoms. Wear shoes both inside and outside of your home. Don't go barefoot or wear slippers. Be cautious when going up and down stairs, curbs, and when walking on uneven sidewalks. If your balance is poor, consider using a cane or walker. Talk with your healthcare provider about having a balance assessment. If your fall was related to alcohol use, stop or limit alcohol intake. Ask your provider for help if you think you may overuse alcohol and can't stop. If your fall was related to use of sleeping medicines, talk with your provider about this. You may need to reduce your dosage at bedtime if you wake up during the night to go to the bathroom. To reduce the need for nighttime bathroom trips: o Don't drink fluids for several hours before going to bed o Empty your bladder before going to bed o Men can keep a urinal at the bedside Stay as active as you can. Balance, flexibility, strength, and endurance all come from exercise.They all play a role in preventing falls. Ask your provider which types of activity are right for you. Try to do some type of exercise every day. Get your eyes checked once a year or more often if your vision changes If you have pets, know where they are before you stand up or walk so you don't trip over them. Go over all your medicines with a pharmacist or other provider. This is to see if any of them could make you more likely to fall. Have this type of medicine review at least once every year. If your provider advises a new medicine, ask if the side effects will affect your balance. Don't move quickly from one position to another. For instance, don't stand up fast from sitting.This can cause dizziness and may lead to a fall. Sit down when putting on pants, socks, and shoes. This will make you less likely to lose your balance and fall. Always let your provider know if you have fallen since your last visit. Contact your provider right away if you're having balance problems or falling more often. Last Reviewed Date: 2021 00:00:00 [id number] [employer]. All rights reserved. This information is not intended as a substitute for professional medical care. Always follow your healthcare professional's instructions. * Pt Handout (on AVS) - Maru White RN - 08/06/2024 9:42 AM EDT Images from the original note were not included. [id number] Steps for Eating Healthier Changing the way you eat can improve your health. It can lower your cholesterol and blood pressure,and help you stay at a healthy weight. Your diet doesn?t have to be bland and boring to be healthy.Just watch your calories and follow these steps: Step 1. Eat fewer unhealthy fats Choose more fish and lean meats instead of fatty cuts of meat. Skip butter and lard, and use less margarine. Replace these with healthier fats, such as olive, canola, or avocado oils. Pass on foods that have palm, coconut, or partially hydrogenated oils. Eat fewer high-fat dairy foods like cheese, ice cream, and whole milk. Get a heart-healthy cookbook and try some new recipes. Step 2. Go light on salt Keep the saltshaker off the table. Limit high-salt ingredients, such as soy sauce, bouillon, and garlic salt. Instead of adding salt when cooking, season your food with herbs, spices, and other flavorings. Try lemon, garlic, onion, vinegar, or salt-free herb seasonings. Limit convenience foods, such as boxed or canned foods and restaurant food. Read food labels and choose lower-sodium options. Buy fresh, frozen, or canned vegetables that don't have added salt. Step 3. Limit sugar Pause before you add sugars to pancakes, cereal, coffee, or tea. This includes white and brown table sugar, syrup, honey, and molasses. Cut your usual amount by half. Swap out sugar-filled soda and other drinks. Buy sugar-free or low-calorie beverages. Remember, water is always the best choice. Try adding lemon juice to water for extra flavor. Read labels and choose foods with less added sugar. Keep in mind that dairy foods and foods withfruit will have some natural sugar. Cut the sugar in recipes by 1/3 to 1/2. Boost the flavor with extracts like almond, vanilla, or orange. Or add spices such as cinnamon or nutmeg. Step 4. Eat more fiber Eat fresh fruits and vegetables every day. Boost your diet with whole grains. Go for oats, whole-grain rice, and bran. Add beans and lentils to your meals. Drink more water to match your fiber increase to help prevent constipation. Step 5. Pay attention to serving sizes Remember that a serving size is a standard measurement. It will let you track the amount of fat,calories, and other nutrients in the food you eat. Read the Nutrition Facts label on packaged foods to learn their serving sizes. Use serving sizes to assess how much food you put on your plate. Pay attention to your portions.How many servings are you eating? Keep in mind that your needs may change if you?re more active or less active, or if you have other factors that change your calorie needs. Use your hand to help you measure serving sizes. For example: o 1 teaspoon: This is about the size of the first joint of your thumb. o 1 tablespoon: This is about the size of the first 2 joints of your thumb. o 1 ounce: This is about what you can fit in your cupped hand. o 2 to 3 ounces: This is about the size of the palm of your hand. o cup: This is also about what you can fit in your cupped hand. o 1 cup: This is about the size of your fist. Last Reviewed Date: 2022 00:00:00 [id number] [employer]. All rights reserved. This information is not intended as a substitute for professional medical care. Always follow your healthcare professional's instructions. documented in this encounter Plan of Treatment Upcoming Encounters Date Type Department Care Team ([facility] st Contact Info) Description 08/07/2024 12:30 PM EDT Home Visit [facility] at [facility] [address] [address] Dhara Sky RN [address] [address] 08/14/2024 9:00 AM EDT Office Visit Family [address] [phone] Yury Cash MD [address] [place] [phone] 08/17/2024 10:30 AM EDT Home Visit [facility] at [facility] [address] [address] Marjorie Summers CRNP [address] [place] [address] Masha Rutledge, [facility] [address] [place] [address] 10/25/2024 7:00 AM EST [facility] [phone] [address] 11/01/2024 11:40 AM EST Office Visit [address] [phone] Yury Cash MD [address] [place] [phone] 11/21/2024 8:30 AM EST Office Visit Cardiology, [facility] [address] [place] [address] Sajan Griffith PAOnofreC [address] [place] [address] 05/29/2025 9:45 AM EDT Office Visit [facility] [address] [place] [address] Constantino Weber DO [address] [place] [address] Scheduled Referrals Name Type Priority Associated Diagnoses Orde r Schedule PAIN MEDICINE REFERRAL OP Referral Within 10 days (routine) Sprain, sacroiliac Ordered: 08/06/2024 Health Maintenance Due Date Last Done Comments Colonoscopy 01/20/2016 01/19/2011, 12/29, 01/07/2011, Additional history exists Albumin/Creatinine Ratio 05/07/2023 022, 04/11/2021, 05/28/2020, Additional history exists Diabetic Foot Exam 06/08/2024 06/08/2023, 1 , 11/10/2021, Additional history exists COVID-19 Vaccine ( season) 2024 11/09/2022, 08/13/2021, 01/22/2021, Additional history exists HbA1c 01/16/2025 07/19/2024, 01/29, 02/10/2024, Additional history exists CKD PHOS USE SMARTSET 22855 02/09/202501/29, 02/10/2024, 01/06/2024, Additional history exists B-12 05/17/2025 05/17/2024, 05/2024, 07/07/2023, Additional history exists Diabetic Eye Exam 06/18/2025 06/18/2024, , 05/25/2024, Additional history exists Adult Wellness Visit 08/06/2025 08/06/2024 CKD HGB USE SMARTSET 73110 08/06/202508/06, 08/06/2024, 08/02/2024, Additional history exists Depression [...] as of this encounter Visit Diagnoses Diagnosis Routine general medical examination at a health care facility- Primary Hyperlipidemia associated with type 2 diabetes mellitus (HCC) Type 2 diabetes mellitus with diabetic neuropathy, without long-term current use of insulin (HCC) 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
--- OUTSIDE RECORDS SUMMARY | 2024-11-07 08:04 | External Medical Summary | Summary of Care ---
Author Name Unknown Organization [facility] Address [address] [place] [address] Phone [phone] Care Team Providers Care Dermatology Teacher Name Role Phone Yury Cash MD Primary Care Provi [facility] Reason for Visit * Reason Comments Pain L ribs * Auth/Cert Specialty Diagnoses / Procedures Referred By Contzoie t Referred To Contact Diagnoses Left , [facility] [address] [place] [address] Phone: [phone] Emergency Medicine [facility] [address] [place] [address] Referral ID Status Reason Start Date Expiration Date Visits Re quested Visits Authorized [id number] Encounter Details Date Type Department Care Team (Late st Contact Info) Description 08/06/2024 11:19 AM EDT - 08/06/2024 2:33 PM EDT Emergency [facility] ([facility]) [address] [place] [address] Antelmo Quigley DO [address] [place] [address] Cellulitis of left lower extremity (Primary Dx); Chest pain Discharge Disposition: Home - Self Care Allergies [...] Tablet by mouth in the morning. Active Profyle Ultra Blue In Vitro Strip (Glucose Blood) [...] 01/10/2024 Active Gabapentin 600 MG Oral Tablet (Neurontin)Indic ations:Type 2 diabetes mellitus with diabetic neuropathy, without long-term current use of insulin (HCC) TAKE ONE TABLET BY MOUTH THREE TIMES A DAY 270 Tablet 1 01/10/2024 5 Active Myrbetriq 50 MG Oral Tablet Extended Release 24 Hour Take 1 Tablet by mouth in the morning. In the morning.. 11/19/2023 Active Profyle Ultra 2 w/Device Kit Check blood sugars [...] this for 12 days. 24 Capsule 08/06/2024 Active Cephalexin 500 MG Oral Capsule (Keflex) Take 1 Capsule by mouth in the morning and 1 Capsule at noon and 1 Capsule in the evening and 1 Capsule before bedtime. Do all this for 10 days. 40 Capsule 08/06/2024 Active Apixaban 5 MG Oral Tablet (Eliquis) Take 1 Tablet by mouth in the morning and 1 Tablet before bedtime. 60 Tablet 08/06/2024 Active Cefdinir 300 MG Oral Capsule (Omnicef) Take 1 Capsule by mouth in the morning and 1 Capsule before bedtime. Do all this for 4 days. 8 Capsule 08/02/2024 Additional Information Patient not taking.Reported on 08/06/2024 Sulfamethoxazole -Trimethoprim 800-160 MG Oral Tablet (Bactrim DS) Take 1 Tablet by mouth in the morning and 1 Tablet before bedtime. Do all this for 10 days. 20 Tablet 08/06/2024 4 Discontinued documented as of this encounter (statuses [...] to breakdown of skin 09/27/2023 Atherosclerosis of [place] co ronary artery without angina pectoris 02/09/2023 [...] (AAA) without rupture 06/06/2020 Unspecified atherosclerosis of [place] arteries of extremities, bilateral legs 02/15/2019 Type [...] 10/13/2018 02/15/2019 Coronary artery disease invo lving [place] heart without angina pectoris 06/01/2018 11/10/2021 DM type 2 causing neurological disease 01/24/2018 01/14/2021 Type 2 diabetes mellitus wit h diabetic nephropathy, without long-term current use of insulin 09/08/2017 09/08/2017 Atherosclerotic heart diseas e of [place] coronary artery with unspecified angina pectoris 09/08/2017 [...] mRNA, LNP-s, No Pre serve, 2-Dose Series ([employer]) 08/13/2021,01/22/2021,12/27/2020 Covid-19, Mrna, Lnp-s, Pf, B ivalent, [...] Sign Reading Time Taken Comments Blood Pressure 114/98 08/06/2024 2:15 PM EDT Pulse 108 08/06/2024 2:15 PM EDT Temperature 36.2 C (97.2 F) 08/06/2024 2:15 PM ED T Respiratory Rate 18 08/06/2024 2:15 PM EDT Oxygen Saturation 93% 08/06/2024 2:15 PM EDT Inhaled Oxygen Concentration - - Weight 98.4 kg (217 lb) 08/06/2024 11:16 AM EDT Height - - Body Mass Index 31.14 08/06/2024 9:11 AM EDT documented in this [...] No 07/30/2024 documented as of this encounter Discharge Instructions * Discharge Instructions* Antelmo Quigley DO - 08/06/2024 2:00 PM EDT Follow up with your doctor by Tuesday. documented in this encounter Procedure Notes * Kevin Mckeon MD - 08/06/2024 11:24 AM EDTAssociated Order(s): EKG REASON FOR STUDY: CHEST PAIN CONCLUSIONS: Atrial fibrillationwith rapid ventricular response Right bundle branch block Left posterior fascicular block Bifascicular block T wave abnormality, consider inferior ischemia Abnormal ECG When compared with ECG [id number] 11:23, No significant change was found Ventricular Rate: 124 Atrial Rate: 113 QRS Duration: 138 QT/QTc: 352/505 ms P-R-T [place]: 0 : 119 : -23 degrees * Kevin Mckeon MD - 08/06/2024 11:23 AM EDTAssociated Order(s): EKG REASON FOR STUDY: CHEST PAIN CONCLUSIONS: Atrial fibrillation with rapid ventricular response Right bundle branch block T wave abnormality, consider inferior ischemia Abnormal ECG When compared with ECG of 31-Jul-2024 20:19, No significant change was found Ventricular Rate: 110 Atrial Rate: 115 QRS Duration: 138 QT/QTc: 328/443 ms P-R-T [place]: 0 : 106 : -21 degrees documented in this encounter Consult Notes * Shae Vail PA-C - 08/06/2024 1:53 PM EDTAssociated Order(s): General Internal Medicine Consult IP Images from the original note were not included. [facility] General Internal Medicine Consult IP Consult performed by: Shae Vail PA-C Consult ordered by: Antelmo Quigley DO REASON FOR CONSULT: cellulitis, AFIB REQUESTOR OF CONSULT: Antelmo Quigley DO HPI: Gomez Suarez is an 88 year old male with PMH significant for AFIB, PVD, T2DM, CKD and hyperlipidemiawho presented to the ED today at request of PCP due to left- sided rib pain, rule out PE. Patient previously admitted to [facility] from 07/30-08/02 for AFIB and LLE cellulitis, discharged home with increaseddose of metoprolol succinate 100mg BID, Lasix 40mg daily and Cefdinir BID for cellulitis. Patient seen by PCP this morning for hospital discharge follow-up and PCP concerned for PE due to recent onset of left-sided chest pain, as patient is currently not anticoagulated. ED work-up unremarkable: WBCnormal, troponin elevated but improved compared to previous admission (29) and CTPE negative for PE. Due to recent admission, ED physician contacted hospitalist team to evaluate at bedside. Patient seen at bedside. Patient and provide history. Doing well currently, patient reports left-sided rib pain improved with IV Fentanyl. Patient reports he has been doing well post-hospital discharge, left-sided rib pain started yesterday. Patient reports he did complete antibiotic for cellulitis, feels his legs have stayed about the same. Denies shortness of breath, nausea/vomiting, fever/chills or abdominal pain. Subjective Patient's past history, medications, and allergies were reviewed. Objective Physical Exam Most Recent Vital Signs: BP: 131 mmHg/69 mmHg (08/06/24 1330) Pulse: 120 (08/06/24 1330) Resp: 19 (08/06/24 1330) Temp: 36.5 C (08/06/24 1326) Temp Summary: Temp Min: 36.5 C (97.7 F) Max: 36.8 C (98.2 F) SpO2: 93 % (08/06/24 1330) O2 flow rate: Supplemental O2 Delivery: Room Air, None (08/06/24 133) Constitutional: no acute distress, chronically ill male who is pleasant and conversational CV: irregular rhythm, tachycardic rate, no murmur Chest: normal respiratory effort, lungs CTA Extremities: no edema, erythema of bilateral feet and lower leg, blanchable, distal pulses intact Skin: warm, dry, erythema of lower extremities as stated above : Neuro: alert, oriented to person, place, and time, sensory normal STUDIES: Encounter Orders Labs reviewed. Assessment and Plan IMPRESSION: Active Problems: * No active hospital problems. * Resolved Problems: * No resolved hospital problems. * RECOMMENDATIONS: Lower extremity cellulitis, left > right Unusual presentation to have cellulitis of both extremities, due to patient's history of PVD, likely vascular component. Agree with duplex ultrasound, negative for DVT. After shared decision-making discussion with patient and patient's , patient agreeable to trial additional PO antibiotics at home. Recommend Bactrim BID alone or Cephalexin QID with Doxycycline BID. Recommend close family medicine follow-up ( or Tuesday) to evaluate cellulitis. Return precautions discussed with patient and patient's . Atrial fibrillation Patient tachycardic in ED but responded well to NSS bolus and one dose IV Lopressor. Recommend continuing Metoprolol succinate 100mg BID. Due to patient having a CHADS-VASC score of 6, recommend starting anticoagulation with Eliquis 5mg BID. Patient and agreeable to start anticoagulation. Thank you for consulting medicine service. I spent a total of 45 minutes coordinating, documenting, and providing care for this patient excluding time spent in the performance of separately billed services or time spent by another provider/QHP. Shae Vail PA-C Associated attestation - Suresh Page MD - 08/06/2024 2:27 PM EDT I have reviewed the advanced practitioner's documentation on the date of service referenced in note, and I agree with, and take responsibility for the plan of care. I spent a total of 30 minutes coordinating, documenting, and providing care for this patient excluding time spent in the performance of separately billed services or time spent by another provider/QHP. Patient here with left sided chest pain, also having worsening LE erythema and persistent edema. Right>left for both. Pulses intact in both LE. He is able to move both lower extremities. Patient was recently treated for cellulitis in the hospital this past week. He is back with similarsymptoms. No systemic signs of infection noted however. Patient would prefer to be treated as outpatient. He also does not have any new fevers, chills, nausea, vomiting, dizziness etc. His left sided chest pain is pleuritic and PE study was negative for PE. 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 This maybe giving him pain. Recommend oral bactrim DS BID for cMRSA coverage for cellulitis for 10 days. He will need to fu with PCP in 2-3 days (Tuesday, 08/09). Can come back if symptoms are worse. Patient expressing understanding and agreeable. I did speak to ED attending and informed him of my recommendations. documented in this encounter ED Notes * Antelmo Quigley DO - 08/06/2024 12:28 PM EDT HISTORY OF PRESENT ILLNESS Gomez Suarez is a 88 year old male who presents to the ED for evaluation of Pain (L ribs). The patient was seen at 08/06/24 1120. Pt c/o pain in the left ribs for the last several days, worse with breathing. Was to the PCP today in follow up for the discharge from this facility for LE Cellulitis. Since he left the hospital the redness has worsened. He was called in to me and then sent in for theleft sided chest pain and concern for PE. Tachycardic and new onset A Fib which he was told about at the recent hospitalization and was not anticoagulated. He has no h/o anticoagulation and does not know why he was not given a blood thinner. 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 Negative for activity change and fever. HENT: Negative. Respiratory: Positive for shortness of breath. Cardiovascular: Positive for chest pain and leg swelling. Gastrointestinal: Negative. Genitourinary: Negative. Musculoskeletal: Positive for myalgias. Skin: Positive for color change and rash. Neurological: Negative. The patient's allergies, past history, and medications were reviewed. PHYSICAL EXAM Initial Vitals (see all): BP 148/110 | Pulse 120 | Resp 18 | Temp 98.2 | O2 97 %, Room Air, None | Weight 98.43 kg | Height 177.8 cm | BMI 31.14 kg/m2 Initial Pain Assessment (see all): 4 (moderate pain)/10 ([facility] Adult Scale 0-10) Physical Exam Vitals and nursing note reviewed. Constitutional: General: He is in acute distress. Appearance: Normal appearance. He is not ill-appearing. HENT: Head: Normocephalic and atraumatic. Right Ear: External ear normal. Left Ear: External ear normal. Nose: Nose normal. Mouth/Throat: Mouth: Mucous membranes are moist. Eyes: Conjunctiva/sclera: Conjunctivae normal. Cardiovascular: Rate and Rhythm: Tachycardia present. Rhythm irregular. Pulses: Normal pulses. Pulmonary: Effort: Pulmonary effort is normal. Breath sounds: Normal breath sounds. Abdominal: Palpations: Abdomen is soft. Tenderness: There is no abdominal tenderness. There is no guarding. Musculoskeletal: General: No signs of injury. Cervical back: Neck supple. Comments: Right LE bright red, blanches, warm to touch, tender, no crepitus Skin: General: Skin is warm and dry. Findings: Rash present. Neurological: Mental Status: He is alert and oriented to person, place, and time. Psychiatric: Mood and Affect: Mood normal. PROCEDURES AND TREATMENTS ED Orders | ED Results MEDICAL DECISION MAKING Nursing notes and vital signs were reviewed. ED consults were placed. ED Course as of 08/06/24 1400 Mon Aug 06, 2024 1226 Troponin T, High Sensitivity(!) 29 - down significantly from 1 week ago. [JL] 1226 Comprehensive Metabolic Panel(!) Unremarkable [JL] 1226 CBC with WBC Differential(!) Unremarkable [JL] 1227 CT Pulmonary Embolus with IV contrast IMPRESSION: No acute abnormality. [JL] 1336 EKG My Interpretation: A Fib with RVR, RBBB, RAD, No acute ischemic changes [JL] 1337 Waiting hospitalist to accept [JL] 1341 Vascular Duplex Venous LE Unilat IMPRESSION: No evidence of deep vein thrombosis. [JL] ED Course User Index [JL] Antelmo Quigley DO Scoring Tools Results: [id number] Score: 5 [place] for PE score: 9 Differential Diagnoses Based on my history, physical exam, and evaluation, the differential includes, but is not limited, to the following diagnoses: Cellulitis, PE, PNA, Musculoskeletal pain, DVT. CTA, Labs, Doppler. Will likely need admit for IV ABX. Internal medicine has seen and the patient wants to go home. They advise ok to go home. Eliquis 5 mg BID, Bactrim BID for 10 days, PCP follow up Tuesday. Dispo home. CTA and Doppler negative. Labs unremarkable. Will sub Keflex and Doxy since Bactrim interacts with Metformin and would possibly potentiate hypoglycemia. Problems Addressed: Cellulitis of left lower extremity: acute illness or injury that poses a threat to life or bodily functions Chest pain: undiagnosed new problem with uncertain prognosis Amount and/or Complexity of Data Reviewed Labs: ordered. Decision-making details documented in ED Course. Radiology: ordered. Decision-making details documented in ED Course. ECG/medicine tests: ordered. Decision-making details documented in ED Course. Risk Prescription drug management. Clinical Impressions Chest pain Cellulitis of left lower extremity Disposition Discharged. The patient's condition at disposition was: stable. Discharge Medications Disp Refills Start End Doxycycline Hyclate 100 MG Oral Capsule 24 Capsule 0 08/06/2024 08/18/2024 Sig - Route: Take 1 Capsule by mouth in the morning and 1 Capsule before bedtime. Do all this for 12 days. - Oral Class: ePrescribing Renewals Renewal requests to authorizing provider (Antelmo Quigley DO) <b>prohibited</b> Cephalexin 500 MG Oral Capsule (Keflex) 40 Capsule 0 08/06/2024 08/16/2024 Sig - Route: Take 1 Capsule by mouth in the morning and 1 Capsule at noon and 1 Capsule in the evening and 1 Capsule before bedtime. Do all this for 10 days. - Oral Class: ePrescribing Renewals Renewal requests to authorizing provider (Antelmo Quigley DO) <b>prohibited</b> Apixaban 5 MG Oral Tablet (Eliquis) 60 Tablet 0 08/06/2024 09/05/2024 Sig - Route: Take 1 Tablet by mouth in the morning and 1 Tablet before bedtime. - Oral Class: ePrescribing Renewals Renewal requests to authorizing provider (Antelmo Quigley DO) <b>prohibited</b> Antelmo Quigley * Paz Patel RN - 08/06/2024 11:25 AM EDT Pt was discharged from here on Tuesday, went to PT today and was sent here to rule out PE. Pt reports pain in L ribs, worse with coughing. documented in this encounter Miscellaneous Notes * Pt Handout (on AVS) - Antelmo Quigley DO - 08/06/2024 1:59 PM EDT [id number] Cellulitis Cellulitis is an infection of the deep layers of skin. A break in the skin, such as a cut or scratch, can let bacteria under the skin. Cellulitis causes the affected skin to become red, swollen, warm, and sore. The reddened areas havea border you can see. An open sore may leak fluid (pus). You may have a fever, chills, and pain. Cellulitis is treated with antibiotics taken for 7 to 10 days. An open sore may be cleaned and covered with cool wet gauze. Symptoms should get better 1 to 2 days after treatment is started. Make sure to take all the antibiotics for the full number of days until they are gone. Keep taking the medicine even if your symptoms go away. If not treated, cellulitis can get into the bloodstream and lymph nodes. The infection can then spread throughout the body. This causes serious illness. Home care Follow these tips: Limit the use of the part of your body with cellulitis. If the infection is on your leg, keep your leg raised while sitting. This helps reduce swelling. Take all of the antibiotic medicine exactly as directed until it is gone. Don't miss any doses, especially during the first 7 days. Finish taking all of the medicine even when your symptoms get better. Keep the affected area clean and dry. Wash your hands with soap and clean, running water before and after touching your skin. Anyone else who touches your skin should also wash his or her hands. Don't share towels. Follow-up care Follow up with your healthcare provider, or as advised. If your infection doesn't go away after finishing the first antibiotic, your healthcare provider will prescribe a different one. When to seek medical advice Call your healthcare provider right away if any of these occur: Red areas that spread Swelling or pain that gets worse Fluid leaking from the skin (pus) Fever higher of 100.4 F (38.0 C) or higher after 2 days on antibiotics Last Reviewed Date: 2021 00:00:00 [id number] [employer]. All rights reserved. This information is not intended as a substitute for professional medical care. Always follow your healthcare professional's instructions. * ED Production Tester Note - Paz Patel RN - 08/06/2024 1:35 PM EDT Hospitalist team at bedside * ED Production Tester Note - Paz Patel RN - 08/06/2024 1:22 PM EDT Pt returned from * ED Production Tester Note - Paz Patel RN - 08/06/2024 1:01 PM EDT Pt to ultrasound * ED Production Tester Note - Paz Patel RN - 08/06/2024 12:46 PM EDT Pt repositioned, pants removed for upcoming testing. * ED Production Tester Note - Paz Patel RN - 08/06/2024 11:51 AM EDT Pt returned from [place] documented in this encounter Plan of Treatment Upcoming Encounters Date Type Department Care Team (Late st Contact Info) Description 08/07/2024 12:30 PM EDT Home Visit [facility] [address] [facility] [place] [address] Dhara Sky RN [address] [facility] [place] [address] 08/14/2024 9:00 AM EDT Office Visit [address] [phone] Yury Cash MD [address] [place] [phone] 08/17/2024 10:30 AM EDT Home Visit [facility] [address] [place] [address] Marjorie Summers CRNP [address] [place] [address] Masha Rutledge, [facility] [employer] [address] [place] [address] 09/03/2024 12:20 PM EST Office Visit [facility] [address] [place] [address] Jeb Iraheta MD [address] [place] [address] 10/25/2024 7:00 AM EST Laboratory Laboratory Patient Service [address] [phone] [address] 11/01/2024 11:40 AM EST Office Visit [address] [phone] Yury Cash MD [address] [place] [phone] 11/21/2024 8:30 AM EST Office Visit Cardiology, [facility] [address] [place] [address] Sajan Griffith PA-C [address] [place] [address] 05/29/2025 9:45 AM EDT Office Visit [facility] [address] [place] [address] Constantino Weber DO [address] [place] [address] Health Maintenance Due Date Last Done Comments Colonoscopy 01/20/2016 01/19/2011, 12/29, 01/07/2011, Additional history exists Albumin/Creatinine Ratio 05/07/2023 022, 04/11/2021, 05/28/2020, Additional history exists Diabetic Foot Exam 06/08/2024 06/08/2023, 1 , 11/10/2021, Additional history exists COVID-19 Vaccine ( season) 2024 11/09/2022, 08/13/2021, 01/22/2021, Additional history exists HbA1c 01/16/2025 07/19/2024, 01/29, 02/10/2024, Additional history exists CKD PHOS USE SMARTSET 29778 02/09/202501/29, 02/10/2024, 01/06/2024, Additional history exists B-12 05/17/2025 05/17/2024, 05/0 05/2024, 07/07/2023, Additional history exists Diabetic Eye Exam 06/18/2025 06/18/2024, , 05/25/2024, Additional history exists Adult Wellness Visit 08/06/2025 08/06/2024 CKD HGB USE SMARTSET 15407 08/06/202508/06, 08/06/2024, 08/02/2024, Additional history exists Depression [...] Procedure Name Priority Date/Time Associated Diagnosis Comments VASC DUPLEX VENOUS LE UNILAT STAT 08/06/2024 1:[address] PULMONARY EMBOLUS W CONTRAST STAT 08/06/2024 11:52 AM EDT DIFFERENTIAL, AUTOMATED STAT 08/06/2024 11:38 AM EDT TROPONIN T, HIGH SENSITIVITY STAT 08/06/2024 11:38 AM EDT COMPREHENSIVE METABOLIC PANEL STAT 08/06/2024 11:38 AM EDT CBC STAT 08/06/2024 11:38 AM EDT CBC STAT 08/06/2024 11:38 AM EDT EXTRA LIGHT BLUE TOP Routine 08/06/2024 11:35 AM EDT EXTRA TUBES Routine 08/06/2024 11:35 AM EDT HC ECG TRACING ONLY STAT 08/06/2024 1 1:24 AM EDT Chest pain HC ECG TRACING ONLY Routine 08/06/2024 1 1:23 AM EDT Chest pain documented in this encounter Results * VASC DUPLEX VENOUS LE UNILAT (08/06/2024 1:25 PM EDT) Anatomical Region Laterality Modality Lower Extremity, Vascular Ultras ound 08/06/2024 12:5 9 PM EDT Impressions 08/06/2024 1:39 PM EDT IMPRESSION: No evidence of deep vein thrombosis. THIS DOCUMENT HAS BEEN ELECTRONICALLY SIGNED BY PIPO DELEON MD Narrative 08/06/2024 1:39 PM EDT PROCEDURE INFORMATION: Exam: US Duplex Left Lower Extremity Veins, Limited Exam date and time: 08/06/2024 12:59 PM Age: 88 years old Clinical indication: Pain; Leg, lower; Left; Additional info: Lt leg pain TECHNIQUE: Imaging protocol: Real-time duplex ultrasound of the left extremity with 2-D mahan scale, color Doppler flow and spectral waveform analysis including responses to compression and other maneuvers (when performed) with image documentation. Limited exam focused on the left lower extremity veins. COMPARISON: [facility] DUPLEX VENOUS LE UNILAT 09/21/2019 12:33 PM FINDINGS: Left deep veins: Unremarkable. The common femoral, femoral, proximal profunda femoral and popliteal veins are patent without thrombus. Normal Doppler waveforms. Normal compressibility and/or augmentation response. Superficial veins: Greater saphenous vein at the saphenofemoral junction is patent without thrombus. Soft tissues: Unremarkable. Procedure Note Pipo Deleon MD - 08/06/2024 PROCEDURE INFORMATION: Exam: US Duplex Left Lower Extremity Veins, Limited Exam date and time: 08/06/2024 12:59 PM Age: 88 years old Clinical indication: Pain; Leg, lower; Left; Additional info: Lt leg pain TECHNIQUE: Imaging protocol: Real-time duplex ultrasound of the left extremity with2-D mahan scale, color Doppler flow and spectral waveform analysis including responses to compression and other maneuvers (when performed) with image documentation. Limited exam focused on the left lower extremity veins. COMPARISON: [facility] DUPLEX VENOUS LE UNILAT 09/21/2019 12:33 PM FINDINGS: Left deep veins: Unremarkable. The common femoral, femoral, proximalprofunda femoral and popliteal veins are patent without thrombus. Normal Doppler waveforms. Normal compressibility and/or augmentation response. Superficial veins: Greater saphenous vein at the saphenofemoral junctionis patent without thrombus. Soft tissues: Unremarkable. IMPRESSION IMPRESSION: No evidence of deep vein thrombosis. THIS DOCUMENT HAS BEEN ELECTRONICALLY SIGNED BY PIPO DELEON MD Antelmo Quigley DO RAD VASCULAR * CT PULMONARY EMBOLUS W CONTRAST (08/06/2024 11:52 AM EDT) Anatomical Region Laterality Modality Chest, Cardio, Body Computed Vic ography 08/06/2024 11:4 4 AM EDT Impressions 08/06/2024 12:14 PM EDT IMPRESSION: No acute abnormality. THIS DOCUMENT HAS BEEN ELECTRONICALLY SIGNED BY PIPO DELEON MD Narrative 08/06/2024 12:14 PM EDT PROCEDURE INFORMATION: Exam: CTA Chest With Contrast Exam date and time: 08/06/2024 11:44 AM Age: 88 years old Clinical indication: Pain; Chest pressure; Additional info: Cp, pleuritic left sided, recent leg swelling and hospitalization, hypoxia, R/O pe TECHNIQUE: Imaging protocol: Computed tomographic angiography of the chest with contrast. Exam focused on the arteries. 3D rendering (Not supervised by radiologist): MIP and/or 3D reconstructed images were created by the technologist. Radiation optimization: All CT scans at this facility use at least one of these dose optimization techniques: automated exposure control; mA and/or kV adjustment per patient size (includes targeted exams where dose is matched to clinical indication); or iterative reconstruction. Contrast material: ISOVUE 370; Contrast volume: 80 ml; Contrast route: INTRAVENOUS (IV); COMPARISON: CT CHEST WO CONTRAST 12/22/2023 10:37 PM FINDINGS: Pulmonary arteries: Normal. No pulmonary emboli. Aorta: Unremarkable. No aortic aneurysm. No aortic dissection. Lungs: There is minimal bibasilar atelectasis or scarring. Pleural spaces: Unremarkable. No pneumothorax. No pleural effusion. Heart: Mitral annular calcification is seen. The heart demonstrates diffuse enlargement. Coronary arteries: There is coronary artery calcification. Lymph nodes: Unremarkable. No enlarged lymph nodes. Bones/joints: Old fractures of the left 6th through 8th ribs. No acute fracture. Soft tissues: Unremarkable. Procedure Note Pipo Deleon MD - 08/06/2024 PROCEDURE INFORMATION: Exam: CTA Chest With Contrast Exam date and time: 08/06/2024 11:44 AM Age: 88 years old Clinical indication: Pain; Chest pressure; Additional info: Cp, pleuriticleft sided, recent leg swelling and hospitalization, hypoxia, R/O pe TECHNIQUE: Imaging protocol: Computed tomographic angiography of the chest withcontrast. Exam focused on the arteries. 3D rendering (Not supervised by radiologist): MIP and/or 3D reconstructed images were created by the technologist. Radiation optimization: All CT scans at this facility use at least one ofthese dose optimization techniques: automated exposure control; mA and/or kV adjustment per patient size (includes targeted exams where dose is matchedto clinical indication); or iterative reconstruction. Contrast material: ISOVUE 370; Contrast volume: 80 ml; Contrast route: INTRAVENOUS (IV); COMPARISON: CT CHEST WO CONTRAST 12/22/2023 10:37 PM FINDINGS: Pulmonary arteries: Normal. No pulmonary emboli. Aorta: Unremarkable. No aortic aneurysm. No aortic dissection. Lungs: There is minimal bibasilar atelectasis or scarring. Pleural spaces: Unremarkable. No pneumothorax. No pleural effusion. Heart: Mitral annular calcification is seen. The heart demonstratesdiffuse enlargement. Coronary arteries: There is coronary artery calcification. Lymph nodes: Unremarkable. No enlarged lymph nodes. Bones/joints: Old fractures of the left 6th through 8th ribs. No acute fracture. Soft tissues: Unremarkable. IMPRESSION IMPRESSION: No acute abnormality. THIS DOCUMENT HAS BEEN ELECTRONICALLY SIGNED BY PIPO DELEON MD Antelmo Quigley DO RAD CT * (ABNORMAL) DIFFERENTIAL, AUTOMATED (08/06/2024 11:38 AM EDT) WBC 8.14 4.00 - 10.80 K/uL 08/06/2024 11:50 AM EDT [facility] Neutrophils % 71.2 40.0 - 75.0 % 08/06/2024 11:50 AM EDT [facility] Lymphocytes % 16.8(L) 18.0 - 42.0 % 08/06/2024 11:50 AM EDT [facility] Monocytes % 11.2(H) 1.0 - 11.0 % 08/06/2024 11:50 AM EDT [facility] Eosinophils % 0.7 0.0 - 6.0 % 08/06/2024 11:50 AM EDT [facility] Basophils % 0.1 0.0 - 2.0 % 08/06/2024 11:50 AM EDT [facility] Neutrophils 5.79 1.80 - 7.70 K/uL 08/06/2024 11:50 AM EDT [facility] Absolute Lymphocytes 1.37 1.00 - 4.80 K/ul 08/06/2024 11:50 AM EDT [facility] Absolute Monocytes 0.91 0.00 - 1.10 K/uL 08/06/2024 11:50 AM EDT [facility] Absolute Eosinophils 0.06 0.00 - 0.70 K/uL 08/06/2024 11:50 AM EDT [facility] Absolute Basophils 0.01 0.00 - 0.20 K/uL 08/06/2024 11:50 AM EDT [facility] Blood Venous blood specimen / Unknown Venipuncture / Unknown 08/06/2024 11:38 AM EDT 08/06/2024 11:41 AM EDT Antelmo Quigley DO LAB BLOOD ORDERABL ES Performing Organization Address City/State/[facility] Co de Phone Number LABORATORY [place] [id number] [place] [address] * (ABNORMAL) CBC (08/06/2024 11:38 AM EDT) WBC 8.14 4.00 - 10.80 K/uL 08/06/2024 11:50 AM EDT LAB[facility] RBC 4.41 4.50 - 5.25 M/uL 08/06/2024 11:50 AM EDT [facility] HGB 11.3(L) 14.0 - 16.8 g/dL 08/06/2024 11:50 AM EDT [facility] HCT 37.0(L) 40.0 - 48.4 % 08/06/2024 11:50 AM EDT LAB[facility] MCV 83.9 82.0 - 99.5 fL 08/06/2024 11:50 AM EDT [facility] MCH 25.6 27.0 - 34.0 pg 08/06/2024 11:50 AM EDT [facility] MCHC 30.5 32.0 - 36.0 g/dL 08/06/2024 11:50 AM EDT [facility] RDW 17.7 11.5 - 15.5 % 08/06/2024 11:50 AM EDT LAB[facility] PLT 188 140 - 400 K/uL 08/06/2024 11:50 AM EDT [facility] MPV 10.6 6.6 - 11.1 fL 08/06/2024 11:50 AM EDT [facility] Blood Venous blood specimen / Unknown Venipuncture / Unknown 08/06/2024 11:38 AM EDT 08/06/2024 11:41 AM EDT Antelmo Quigley LAB BLOOD ORDERABL ES Performing Organization Address [facility]/ZIP Co de Phone Number LABORATORY [address] [phone] * (ABNORMAL) TROPONIN T, HIGH SENSITIVITY (08/06/2024 11:38 AM EDT) [facility] Troponin T, High Sensitivity 29(H) <=22 ng/L 08/06/2024 12:04 PM EDT LAB[facility] Blood Venous blood specimen / Unknown Venipuncture / Unknown 08/06/2024 11:38 AM EDT 08/06/2024 11:41 AM EDT Antelmo Quigley LAB BLOOD ORDERABL ES Performing Organization Address [facility] Co de Phone Number LABORATORY [address] [phone] * (ABNORMAL) COMPREHENSIVE METABOLIC PANEL (08/06/2024 11:38 AM EDT) [facility] BUN 13 6 - 20 mg/dL 08/06/2024 12:07 PM EDT LAB[facility] CREATININE 1.0 0.6 - 1.2 mg/dL 08/06/2024 12:07 PM EDT LAB[facility] EGFR 73 >=60 mL/min 08/06/2024 12:07 PM EDT [facility] Comment:eGFR is calculated b ased on the CKD-EPI 2020 equation. SODIUM 136 135 - 146 mmol/L 08/06/2024 12:07 PM EDT LAB[facility] POTASSIUM 4.2 3.5 - 5.1 mmol/L 08/06/2024 12:07 PM EDT LAB[facility] CHLORIDE 97(L) 98 - 107 mmol/L 08/06/2024 12:07 PM EDT LAB[facility] CO2 27 22 - 32 mmol/L 08/06/2024 12:07 PM EDT LAB[facility] ANION GAP 12 7 - 15 mmol/L 08/06/2024 12:07 PM EDT LAB[facility] GLUCOSE 170(H) 70 - 120 mg/dL 08/06/2024 12:07 PM EDT [facility] Albumin 3.9 3.8 - 5.0 g/dL 08/06/2024 12:07 PM EDT LAB[facility] AST 23 10 - 50 U/L 08/06/2024 12:07 PM EDT [facility] Alkaline Phosphatase 105 35 - 130 U/L 08/06/2024 12:07 PM EDT [facility] Bilirubin, Total 0.7 <=1.2 mg/dL 08/06/2024 12:07 PM EDT [facility] CALCIUM 9.3 8.4 - 10.2 mg/dL 08/06/2024 12:07 PM EDT [facility] Protein 7.5 6.0 - 8.3 g/dL 08/06/2024 12:07 PM EDT [facility] ALT 27 10 - 50 U/L 08/06/2024 12:07 PM EDT [facility] Blood Venous blood specimen / Unknown Venipuncture / Unknown 08/06/2024 11:38 AM EDT 08/06/2024 11:41 AM EDT Antelmo Quigley DO LAB BLOOD ORDERABL ES Performing Organization Address [facility] de Phone Number LABORATORY [address] [phone] * EXTRA LIGHT BLUE TOP (08/06/2024 11:35 AM EDT) Blood Venous blood specimen / Unknown Venipuncture / Unknown 08/06/2024 11:35 AM EDT 08/06/2024 11:44 AM EDT Antelmo Quigley DO LAB BLOOD ORDERABL ES Performing Organization Address [facility] de Phone Number LABORATORY [address] [phone] * EKG (08/06/2024 11:24 AM EDT) 08/06/2024 11:2 4 AM EDT Narrative Procedure Note Kevin Mckeon MD - 08/06/2024 11:24 AM EDT REASON FOR STUDY: CHEST PAIN CONCLUSIONS: Atrial fibrillationwith rapid ventricular response Right bundle branch block Left posterior fascicular block Bifascicular block T wave abnormality, consider inferior ischemia Abnormal ECG When compared with ECG [id number] 11:23, No significant change was found Ventricular Rate: 124 Atrial Rate: 113 QRS Duration: 138 QT/QTc: 352/505 ms P-R-T [place]: 0 : 119 : -23 degrees Antelmo Quigley DO EKG Performing Organization Address [facility] de Phone Number [facility] * EKG (08/06/2024 11:23 AM EDT) 08/06/2024 11:2 3 AM EDT Narrative Procedure Note Kevin Mckeon MD - 08/06/2024 11:23 AM EDT REASON FOR STUDY: CHEST PAIN CONCLUSIONS: Atrial fibrillation with rapid ventricular response Right bundle branch block T wave abnormality, consider inferior ischemia Abnormal ECG When compared with ECG of 31-Jul-2024 20:19, No significant change was found Ventricular Rate: 110 Atrial Rate: 115 QRS Duration: 138 QT/QTc: 328/443 ms P-R-T [place]: 0 : 106 : -21 degrees Antelmo Quigley DO EKG Performing Organization Address [facility] Phone Number [employer] documented in this encounter Visit Diagnoses Diagnosis Cellulitis of left lower extremity- Primary Cellulitis and abscess of leg, except foot Chest pain Chest pain, unspecified documented in this encounter Administered Medications Inactive Administered Medications - up to 3 most recent administrations Medication Order MAR Action Action Date Dose Rate Site fentaNYL (PF) inj 25 mcg 25 mcg, IV Push, ONCE, On Tue08/06/24 at 1330, For 1 dose, When given IV Push its recommended that the dose be given over 3 to 5 minutes. Given 08/06/2024 1:25 PM EDT 25 mcg Iopamidol (Isovue 370) inj 80 mL 80 mL, Intravenous, ONCE, On Tue08/06/24 at 1230, For 1 dose, Radiology Medication Routing (Non-IR) Given 08/06/2024 11:52 AM EDT 80 mL Metoprolol Tartrate (Lopressor) inj 5 mg 5 mg, IV Push, ONCE, On Tue08/06/24 at 1330, For 1 dose Given 08/06/2024 1:26 PM EDT 5 mg NSS 0.9% 500 mL bolus infusion Peripheral IV, at 500 mL/hr Administer over 60 Minutes, Administer entire volume within 60 minutes or less., ONCE, 1 dose, On Tue08/06/24 at 1200 New Bag 08/06/2024 11:56 AM EDT 500 mL 500 mL/hr documented in this encounter Active and Recently Administered Medications Times are shown in EDT. Scheduled Medication Order 08/04/2024 08/05/2024 08/06/2024 fentaNYL (PF) inj 25 mcg (COMPLETED) 25 mcg, IV Push, ONCE, On Tue08/06/24 at 1330, For 1 dose, When given IV Push its recommended that the dose be given over 3 to 5 minutes. 1325 (Given - Provid er: Paz Patel RN) Iopamidol (Isovue 370) inj 80 mL (COMPLETED) 80 mL, Intravenous, ONCE, On Tue08/06/24 at 1230, For 1 dose, Radiology Medication Routing (Non-IR) 1152 (Given - Provid er: Jose Alfredo Bateman, RT (R)) Metoprolol Tartrate (Lopressor) inj 5 mg (COMPLETED) 5 mg, IV Push, ONCE, On Tue08/06/24 at 1330, For 1 dose 1326 (Given - Provid er: Paz Patel RN) NSS 0.9% 500 mL bolus infusion (COMPLETED) Peripheral IV, at 500 mL/hr Administer over 60 Minutes, Administer entire volume within 60 minutes or less., ONCE, 1 dose, On Tue08/06/24 at 1200 1156 (New Bag - Prov ider: Paz Patel RN)1324 (Stopped - Provider: Paz Patel RN) documented in this encounter Advance Directives [...] the patient have Health Care Power of Retail Store Clerk? Yes, not currently available Care Teams Dermatology Teacher Relationship Specialty Start Date End Date Yury Cash MD [address] [place] [phone] PCP - General Family Medicine 07/19/24 documented as of this encounter"
--- OUTSIDE RECORDS SUMMARY | 2024-11-07 08:05 | External Medical Summary ---
Author Name Unknown Address Unknown Organization K1G:LABORATORY [facility] - [address] [facility] [place] [address] Laboratory Report Ordering Provider Test Date Status JAXSON RODRIGUEZLorena 08/06/2024 11:38:31 Final Observation Date Value Abnormality Reference (Units ) Status BUN 08/06/2024 11:38:31 13 6-20 (mg/dL) Final Creatinine 08/06/2024 11:38:31 1.0 0.6-1.2 (mg/dL) Final Glomerular filtration rate/1.73 sq M.predicted [Volume Rate/Area] in Serum, Plasma or Blood by Creatinine-based formula (CKD-EPI) 08/06/2024 11:38:31 73 >=60 (mL/min) Final eGFR is calculated based on the CKD-EPI 2020 equation. Sodium 08/06/2024 11:38:31 136 135-146 (m mol/L) Final Potassium 08/06/2024 11:38:31 4.2 3.5-5.1 (m mol/L) Final Cl 08/06/2024 11:38:31 97 Below low normal 98- 107 (mmol/L) Final CO2 08/06/2024 11:38:31 27 22-32 (mmo l/L) Final Anion gap 08/06/2024 11:38:31 12 7-15 (mmol /L) Final Glucose 08/06/2024 11:38:31 170 Above high normal 70 -120 (mg/dL) Final Albumin 08/06/2024 11:38:31 3.9 3.8-5.0 (g /dL) Final AST (Aspartate aminotransferase) 08/06/2024 11:38:31 23 10-50 (U/L) Fin al Alk Phos 08/06/2024 11:38:31 105 35-130 (U/ L) Final Bilirubin, Total 08/06/2024 11:38:31 0.7 <=1 .2 (mg/dL) Final Calcium 08/06/2024 11:38:31 9.3 8.4-10.2 ( mg/dL) Final Protein 08/06/2024 11:38:31 7.5 6.0-8.3 (g /dL) Final ALT (Alanine aminotransferase) 08/06/2024 11:38:31 27 10-50 (U/L) Jc abreu Performing Location LABORATORY [facility] - [address] [place] [phone]
--- OUTSIDE RECORDS SUMMARY | 2024-11-07 08:05 | External Medical Summary | Summary of Care ---
Author Name Unknown Organization [facility] Address [address] [place] [address] Phone [phone] Care Team Providers Care Torch Brazer Name Role Phone Yury Cash MD Primary Care [facility] Reason for Referral * Evaluate & Treat - Unlimited Visits (Within 10 days (routine)) - Authorized Specialty Diagnoses / Procedures Referred By Contac t Referred To Contact Pain Management / Pain Medicine Diagnoses Sprain, sacroiliac Yury Cash MD [address] [place] [phone] Referral ID Status Reason Start Date Expiration Date Visits Requested Visits Authorized [id number] Authorized Specialty Services Required 08/06/2024 999 999 Question Answer Referral Priority Within 10 days (routine) Where should this appointment be scheduled? [facility] Reason for referral? Interventional Pain Management - (Injection) What condition is the patient being referred for? Lumbar Radiculopathy What is the preferred location to have this test performed? [facility] Comments Patient Name: Gomez Suarez Date [...] pain if not done previously. Fax No. [facility] [phone] or contact front desk receptionist [phone] Fax No. [facility] [phone] or contact front desk receptionist [phone] Fax No. [facility] [phone] or contact front desk receptionist [phone] Reason for Visit * Reason Onset Date Comments Adult Annual Wellness Visit, Initial Visit Adult Annual Wellness Visit, Initial Visit 08/06 Encounter Details Date Type Department Care Team ([facility] st Contact Info) Description 08/06/2024 9:00 AM EDT Nurse Only Ancillary [address] [phone] Have, Nurse Annual [address] [address] Adult Annual Wellness Visit, Initial Visit... Allergies [...] the morning. In the morning.. 11/19/2023 Active [employer] Wireless 2 w/Device Kit Check blood sugars once [...] of urine 12/22/2023 Urinary tract infection 12/22/2023 Pneumonia of left lower lobe due to infectious o rganism 12/22/2023 Skin ulcer of right ankle, limited to breakdown of skin 09/27/2023 Atherosclerosis of prairie band co ronary artery without angina pectoris [...] (AAA) without rupture 06/06/2020 Unspecified atherosclerosis of prairie band arteries of extremities, bilateral legs 02/15/2019 Type [...] Problem Noted Date Diagnosed Date Resolved Date Cellulitis of left lower extremity 12/23/2021 12/25/2023 Type 2 diabetes mellitus wit h hemoglobin A1c goal of less than 7.5% 11/14/2019 01/14/2021 Skin ulcer of toe of left fo ot, limited to breakdown of skin 10/13/2018 02/15/2019 Coronary artery disease invo lving prairie band heart without angina pectoris 06/01/2018 11/10/2021 DM type 2 causing neurological disease 01/24/2018 01/14/2021 Type 2 diabetes mellitus wit h diabetic nephropathy, without long-term current use of insulin 09/08/2017 09/08/2017 Atherosclerotic heart diseas e of prairie band coronary artery with unspecified angina pectoris [...] mRNA, LNP-s, No Pre serve, 2-Dose Series ([employer]) 08/13/2021,01/22/2021,12/27/2020 Covid-19, Mrna, Lnp-s, Pf, B ivalent, 30 Mcg, IM, 12 yrs and above ([employer]) 11/09/2022 Pneumococcal Conjugate Vacc, 13 Valent (Prevnar) [...] 120 mg/dL Sincerely, Yury Cash MD 08/06/2024 [facility] Calendar (as of Visit date not found [...] your insurance company to determine what's covered. [employer] is a great tool that helps you review your medical record online, including test results, doctor notes and your health summary. You can also schedule appointments with me and other members of your care team, request prescription refills and ask for advice related to your medical conditions at [email or web address]. Patient Instructions - Fall Prevention (This education [...] 10 times. Repeat this throughout the day. [employer] Patient Education Copyright 2008 - 2010 [employer] except where otherwise noted. Preventing Falls: Moving [...] History: Diagnosis Date AAA (abdominal aortic aneurysm) (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) 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 DM [...] performed by Bharath Monaco [place] [facility] REMOVAL OF TONSILS, UNDER AGE 12 approx age 11 SACROILIAC JOINT INJECT W/GUIDANCE Bilateral 05/09/2023 INJECTION SACROILIAC JOINT performed by Roberto Li DO at OR [facility] SACROILIAC JOINT INJECT W/GUIDANCE Bilateral 09/29/2023 INJECTION SACROILIAC JOINT performed by Roberto Li DO at OR [facility] Family History Problem Relation Name [...] Admissions (within the last year): Hospital, Location: [facility] Date of Admission: 07/2024 ER within 30 days: Yes, when: 07/30/2024 and where: [facility] Does the patient have an Advance Directives/Living Will? No. Does the patient want information? No.Patient declined information Last Physical Exam: Last physical exam: 07/19/2024 Does patient see primary provider regularly? Yes Does patient see other providers? Yes, Specialist Patient Care Team updated? Yes Review of patient's allergies indicates: No Known Allergies Immunization History Administered Date(s) Administered COVID-19 mRNA, LNP-s, No Preserve, 2-Dose Series ([employer]) 12/27/2020, 01/22/2021, 08/13/2021 Covid-19, Mrna, Lnp-s, Pf, [...] mouth in the morning. In the morning.. Eleven Wireless 2 w/Device Kit Check blood sugars once [...] use of insulin (HCC) Unspecified atherosclerosis of prairie band arteries of extremities, bilateral legs (HCC) Abdominal aortic aneurysm (AAA) without rupture (HCC) Chronic kidney disease, stage 3a (HCC) 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 (HCC) Atherosclerosis of prairie band coronary artery without angina pectoris Skin ulcer of right ankle, limited to breakdown of skin (HCC) Cellulitis COVID Elevated lactic acid level Fever, unknown origin Hematuria History of tonsillectomy Hypomagnesemia Hypoxia PVD (peripheral vascular disease) ([facility]) Recurrent falls Retention of urine Urinary tract [...] disturbances Visually impaired Older than age 70 Ftx-Lu-qsx-Go Test: Time began at 0900. Patient stood from sitting position and walked approximately 10 feet, returned and sat down. Total time for fgo-lc-uwz-go test was 9 seconds. Rsy-Pw-ghf-Go Test completed? Yes Gender Specific Preventative Plan: Health Maintenance Topic Date Due Colonoscopy 01/20/2016 Albumin/Creatinine Ratio 05/07/2023 Diabetic Foot Exam 06/08/2024 COVID-19 Vaccine ( season) 2024 HbA1c 01/16/2025 CKD PHOS USE SMARTSET 57019 02/09/2025 B-12 05/17/2025 Diabetic Eye Exam 06/18/2025 CKD HGB USE SMARTSET 87812 08/02/2025 Depression Screening 08/06/2025 Adult Wellness Visit [...] pt to continue present medications. Atherosclerosis of prairie band coronary artery of prairie band heart without angina pectoris - Med reconciliation [...] White RN - 08/06/2024 9:42 AM EDT [id number] Fall Prevention Falls often take place due [...] more often. Last Reviewed Date: 2021 00:00:00 [id number] [employer]. All rights reserved. This information is not intended as a substitute for professional medical care. Always follow your healthcare professional's instructions. * Pt Handout (on AVS) - Maru White RN - 08/06/2024 9:42 AM EDT Images from the original note were not included. [id number] 5 Steps for Eating Healthier Changing the [...] your fist. Last Reviewed Date: 2022 00:00:00 [id number] [employer]. All rights reserved. This information is not intended as a substitute for professional medical care. Always follow your healthcare professional's instructions. documented in this encounter Plan of Treatment Upcoming Encounters Date Type Department Care Team ([facility] Contact Info) Description 08/06/2024 10:20 AM EDT Office Visit [address] [phone] Arminda Hilliard PA-C [address] [place] [phone] Arrived 08/07/2024 12:30 PM EDT [facility] Visit [facility] [address] [address] Dhara Sky RN [address] [address] 08/14/2024 9:00 AM EDT Office Visit [address] [phone] Yury Cash MD [address] [place] [phone] 08/17/2024 10:30 AM EDT Home Visit [facility] [address] [place] [address] Marjorie Summers CRNP [address] [place] [address] Masha Rutledge, Community [facility] Striker Out [address] [place] [address] 10/25/2024 7:00 AM EST [facility] [phone] [phone] 11/01/2024 11:40 AM EST Office Visit [address] [phone] Yury Cash MD [address] [place] [phone] 11/21/2024 8:30 AM EST Office Visit Cardiology, [facility] [address] [place] [address] Sajan Griffith PA-C [address] [place] [address] 05/29/2025 9:45 AM EDT Office Visit [facility] [address] [place], [place] [phone] Constantino Weber DO [address] [place], [place] [phone] Scheduled Referrals Name Type Priority Associated Diagnoses [...] Additional history exists CKD PHOS USE SMARTSET 93919 02/09/202501/29, 02/10/2024, 01/06/2024, Additional history exists B-12 05/17/2025 05/17/2024, 05/0 05/2024, 07/07/2023, Additional history exists Diabetic Eye Exam 06/18/2025 06/18/2024, , 05/25/2024, Additional history exists CKD HGB USE SMARTSET 29405 08/02/202508/02, 08/01/2024, 07/31/2024, Additional history exists Adult Wellness Visit 08/06/2025 08/06/2024 Depression Screening 08/06/2025 08/06/2024, 04/21/20 15 DTap/Tdap [...] atrial fibrillation (HCC) Atrial fibrillation Atherosclerosis of prairie band coronary artery of prairie band heart without angina pectoris Retention of urine [...] patient have Health Care Power of Assistant Import Manager? Yes, not currently available Care Teams Torch Brazer Relationship Specialty Start Date End Date Yury Cash MD [address] [place] [phone] PCP - General Family Medicine 07/19/24 documented as of this encounter
--- OUTSIDE RECORDS SUMMARY | 2024-11-07 08:05 | External Medical Summary | Summary of Care ---
Author Name Unknown Organization [facility] Address [address] [place] [address] Phone [phone] Care Team Providers Care Pearl Maker Name Role Phone Yury Cash MD Primary Care [facility] Reason for Referral * Evaluate & Treat - Unlimited Visits (Within 3 days (urgent)) - Authorized Specialty Diagnoses / Procedures Referred By Contzoie t Referred To Contact HOME CARE / Home Care Diagnoses Cellulitis of left lower extremity Diego Guan, DO [address] [place] [address] Referral ID Status Reason Start Date Expiration Date Visits Requested Visits Authorized [id number] Authorized Specialty Services Required 08/02/2024 999 999 Question Answer Referral Priority Within 3 days (urgent) Where should this appointment be scheduled? [facility]ite[facility] Documentation of Ogri-ku-Cvcp Encounter Addendum Patient Name: Gomez Suarez I certify that this patient is under my care and that I, or a nurse practitioner or physician's records management assistant working with me, had a pkme-kh-ygoo encounter that meets the physician vklj-kg-tvvb encounter requirements with this patient on: 08/02/2024 The encounter with the patient was in whole, or in part, for the following medical condition, which is the primary reason for home health care (List medical condition): Convalescence from acute illness I certify that, based on my findings, the following services are medically necessary home health services: Nursing, Physical Therapy, and OT To provide the following care/treatments: (All hospitalists not following the patient after discharge should complete this section): Medication management, therapy, ADLs Primary Care Physician to follow home care plan of care after discharge: Dr. Cash My clinical findings support the need for the above services because: Evaluation by treatment team Further, I certify that my clinical findings support that this patient is homebound (i.e. Absences from home require considerable and taxing effort and are for medical reasons or [facility] services or infrequently or of short duration when for other reason) because: Patient stable for home Physician Signature: Date of Signature: Physician Printed Name: Diego Guan DO Discharge Order Reason for Visit * Auth/Cert Specialty Diagnoses / Procedures Referred By Radha sung Referred To Contact [facility] [address] [facility] [place] [address] Phone: [phone] Emergency Medicine [address] [address] Referral ID Status Reason Start Date Expiration Date Visits Re quested Visits Authorized [id number] Encounter Details Date Type Department Care Team (Latest Contact Info) Description 07/30/2024 4:54 AM EDT - 08/02/2024 1:59 PM EDT Hospital Encounter ACU [facility], Acute Care Unit, [facility] 2nd Floor [address] [place] [address] Gomez Farrar MD [address] [facility] [place] [address] Diego Guan DO [address] [place] [id number] Various: EKG,KRAVS Discharge Disposition: Home with Services Allergies No known active allergiesdocumented as of this encounter (statuses as of 08/03/2024) Medications Medication Sig Dispensed Refills Start Date End Date Status aspirin enteric coated 81 MG TBEC Take 1 Tablet by mouth in the morning. 05/14/2016 Active ONETOUCH JOSHUA LANCETS FINE MISC Check blood sugars once daily, E11.9, not using insulin, 100 Each 3 11/24/2018 Active Multiple Vitamin (ONE-A-DAY MENS) Tablet Take 1 Tablet by mouth in the morning. Active Realty CompassTouch Ultra Blue In Vitro Strip (Glucose Blood) USE 1 STRIP TO CHECK GLUCOSE ONCE DAILY, dx E11.40 100 Strip 3 10/04/2021 Active Allopurinol 300 MG Oral Tablet (Zyloprim) TAKE ONE TABLET BY MOUTH EVERY DAY 90 Tablet 3 11/17/2023 11/16/19 25 Active Additional Information Patient taking [...] TIMES A DAY 270 Tablet 1 01/10/2024 01/10/20 Active Myrbetriq 50 MG Oral Tablet Extended Release 24 Hour Take 1 Tablet by mouth in the morning. In the morning.. 11/19/2023 Active Realty CompassTouch Ultra 2 w/Device Kit Check blood sugars [...] this for 4 days. 8 Capsule 08/02/2024 08/06/20 24 Active Metoprolol Succinate ER 50 MG Oral Tablet Extended Release 24 Hour (toPROL XL)Indications:Pa roxysmal A-fib (HCC) TAKE ONE TABLET BY MOUTH EVERY DAY AT NOON 90 Tablet 3 02/15/2024 08/02/20 24 Discontinued traMADol HCl 50 MG Oral Tablet (Ultram)Indicatio ns:Chronic foot pain, left,Bilateral sacroiliitis (HCC),Sacral back pain Take 1 Tablet by mouth every 6 hours as needed for Pain, Moderate or Pain, Severe. 40 Tablet 04/13/2024 08/02/20 24 Discontinued B-12 500 MCG Oral Tablet Take 1 Tablet by mouth every morning. 08/02/20 24 Discontinued Iron-Vitamin C 65-125 MG Oral Tablet (Vitron C) Take 1 Tablet by mouth in the morning. 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 02/09/2023 [...] (AAA) without rupture 06/06/2020 Unspecified atherosclerosis of coqu[place] arteries of extremities, bilateral legs 02/15/2019 Type [...] as of this encounter (statuses as of 08/03/2024) Resolved Problems Problem Noted Date Diagnosed Date Resolved Date Cellulitis of left lower extremity 12/23/2021 12/25/2023 Type 2 diabetes mellitus wit h hemoglobin A1c goal of less than 7.5% 11/14/2019 01/14/2021 Skin ulcer of toe of left fo ot, limited to breakdown of skin 10/13/2018 02/15/2019 Coronary artery disease invo lving coquille heart without angina pectoris 06/01/2018 11/10/2021 DM type 2 causing neurological disease 01/24/2018 01/14/2021 Type 2 diabetes mellitus wit h diabetic nephropathy, without long-term current use of insulin 09/08/2017 09/08/2017 Atherosclerotic heart diseas e of coquille coronary artery with unspecified angina pectoris 09/08/2017 [...] as of this encounter (statuses as of 08/03/2024) Immunizations Name Administration Dates Next Due COVID-19 mRNA, LNP-s, No Pre serve, 2-Dose Series (Vusion) 08/13/2021,01/22/2021,12/27/2020 Covid-19, Mrna, Lnp-s, Pf, B ivalent, [...] Male 02/15/2019 10:31 AM EDT Sexual Orientation Not on file Job Start Date Occupation Industry Not on file Not on file Not on file documented as of this encounter Last Filed Vital Signs Vital Sign Reading Time Taken Comments Blood Pressure 114/74 08/02/2024 7:44 AM EDT Pulse 103 08/02/2024 12:45 PM EDT Temperature 37.1 C (98.8 F) 08/02/2024 7:44 AM ED T Respiratory Rate 16 08/02/2024 7:44 AM EDT Oxygen Saturation 95% 08/02/2024 7:44 AM EDT Inhaled Oxygen Concentration - - Weight 104.7 kg (230 lb 13.2 oz) 2023 10:36 AM EDT Height 177.8 cm (5' 10") 07/30/2024 8:45 AM EDT Body Mass Index 33.12 07/30/2024 8:45 AM EDT documented in this encounter Functional [...] 07/30/2024 documented as of this encounter Discharge Summaries * Diego Guan DO - 08/02/2024 12:30 PM EDT Images from the original note were not included. [facility] [address] [facility] [address] Admission Date: 07/30/2024 Discharge Date: 08/02/2024 RECOMMENDED TO DO FOR NEXT PROVIDER(S): Metoprolol Succinate 100mg BID Lasix 40mg daily Cardiology referral REASON(S) FOR MEDICATION CHANGE(S): As above DISPOSITION ON DISCHARGE: Home with [facility] with health services Active Hospital Problems Diagnosis *Principal Diagnosis - Atrial fibrillation with RVR ([facility]) Type 2 myocardial infarction (HCC) Cellulitis of left lower extremity PVD (peripheral vascular disease) ([facility]) Chronic kidney disease, stage 3a ([facility]) Type 2 diabetes mellitus with diabetic neuropathy, without long-term current use of insulin (HCC) S/P right coronary artery (RCA) stent placement Paroxysmal atrial fibrillation (HCC) Hyperlipidemia associated with type 2 diabetes mellitus ([facility]) Resolved Hospital Problems No resolved problems to display. ADMISSION HISTORY & PHYSICAL EXAM (focused): PRESENTING PROBLEM: Generalized weakness HPI: Gomez Suarez is an 88 year old male, with a PMHx of CAD s/p stent, Atrial Fibrillation, DLD, CKD III, PVD, who presents for evaluation of generalized weakness. The patient is accompanied by his , who assists with history taking. The patient notes over the past several days has noticed increasing weakness and coolness of the left lower extremity. The patient notes his right lower extremityis typically cooler 2 peripheral vascular disease and has gotten a bypass of the right lower extremity previously. He noticed increasing redness and coolness to the touch of the left lower extremity.Given this in the generalized weakness, he presented to the ER for further evaluation. In the ER, the patient had lab work which was notable for elevated troponins did trend down. The patient also had a leukocytosis of 14. A sepsis alert was called, patient did receive 2 L of normal saline, was initially in atrial fibrillation with RVR but this improved with fluids as well as a dose of metoprolol tartrate 5 mg IV. Given the weakness, the patient was recommended for admission. Physical Exam Most Recent Vital Signs: BP: 118 mmHg/72 mmHg (07/30/24 0845) Pulse: 68 (07/30/24 0845) Resp: 21 (07/30/24 0845) Temp: 36.72 C (07/30/24 0845) Temp Summary: Temp Min: 36.7 C (98.1 F) Max: 37.9 C (100.2 F) SpO2: 94 % (07/30/24844) O2 flow rate: Supplemental O2 Delivery: Room Air, None (07/30/248[address]) Constitutional: no acute distress, (+) chronically ill CV: irregular rate, no murmur, gallops or rub Chest: normal respiratory effort, decreased at bases Abdomen: normal: soft, bowel sounds normal, no masses, tenderness or organomegaly Extremities: no clubbing, cyanosis, right lower extremity cool to touch, scar from previous surgerynoted, left lower extremity warm to touch, erythematous, no pain to palpation Skin: warm, dry, intact: HOSPITAL COURSE (focused): The patient was admitted with shortness of breath and found have atrial fibrillation with RVR well as cellulitis of the left lower extremity. The patient was started on ceftriaxone, and given increasing doses of metoprolol succinate, 100 mg twice daily. The patient's heart rate did show improvement. The patient did require a dose of IV Lasix for shortness of breath, and was started on Lasix 40 mgoral daily. The patient's cellulitis did show significant improvement, the patient was transitionedto cefdinir to complete treatment for cellulitis. The patient did work with PT and OT, who recommended home health nursing PT and OT which was ordered at time of discharge. Operations & Procedures: none Complications: none significant Significant Lab and Imaging Results: As mentioned above Results Pending at Discharge: Lab Results Pending at Discharge: BASIC METABOLIC PANEL Routine CBC Routine MEDICATION UPDATES AT DISCHARGE START taking these medications INSTRUCTIONS Furosemide 40 MG Tablet Commonly known as: Lasix Start taking on: August 03, 2024 Take 1 Tablet by mouth in the morning. CHANGE how you take these medications INSTRUCTIONS metoprolol succinate XL 100 MG Tb24 Commonly known as: toPROL XL What changed: medication strength how much to take how to take this when to take this Take 1 Tablet by mouth in the morning and 1 Tablet before bedtime. omeprazole 20 MG Cpdr Commonly known as: PriLOSEC What changed: See the new instructions. TAKE 1 CAPSULE BY MOUTH IN THE MORNING. TAKE 1 HOUR BEFORE THE FIRST MEAL OF THE DAY. CONTINUE taking these medications INSTRUCTIONS Allopurinol 300 MG Tablet Commonly known as: Zyloprim Notes to patient: Treats gout TAKE ONE TABLET BY MOUTH EVERY DAY aspirin enteric coated 81 MG Tbec Notes to patient: Heart Health Take 1 Tablet by mouth in the morning. atorvaSTATin 40 MG Tablet Commonly known as: Lipitor Notes to patient: Treats high cholesterol TAKE ONE TABLET BY MOUTH EVERY DAY Gabapentin 600 MG Tablet Commonly known as: Neurontin Notes to patient: Treats pain TAKE ONE TABLET BY MOUTH THREE TIMES A DAY metFORMIN ER 500 MG Tb24 Commonly known as: Glucophage XR Notes to patient: Treats diabetes Take 2 Tablets by mouth 2 times a day with morning and evening meals. Myrbetriq 50 MG Tb24 Generic drug: Mirabegron ER Notes to patient: Treats overactive bladder Take 1 Tablet by mouth in the morning. In the morning.. One-A-Day Mens Tablet Notes to patient: supplement Take 1 Tablet by mouth in the morning. OneTouch Delica Lancets Fine Misc Notes to patient: supplies Check blood sugars once daily, E11.9, not using insulin, OneTouch Ultra 2 w/Device Kit Notes to patient: Supplies Check blood sugars once daily OneTouch Ultra Blue Strp Generic drug: Glucose Blood Notes to patient: Supplies USE 1 STRIP TO CHECK GLUCOSE ONCE DAILY, dx E11.40 STOP taking these medications B-12 500 MCG Tabs Iron-Vitamin C 65-125 mg per tab 65-125 MG Tablet Commonly known as: Vitron C predniSONE 10 MG Tabs Tablet Commonly known as: Deltasone traMADol 50 MG Tablet Commonly known as: Ultram SCHEDULED FOLLOW-UP: Future Appointments Appt Date/Time Provider Department 08/06/2024 9:00 AM Radha, Nurse Annual Wellness [facility] 08/14/2024 9:00 AM Yury Cash MD [facility] 10/25/2024 7:00 AM Radha [facility] Patient Service [facility] 11/01/2024 11:40 AM Yury Cash MD [facility] 11/21/2024 8:30 AM Sajan Griffith PA-C Cardiology, [facility] 05/29/2025 9:45 AM Constantino Weber DO [facility] Outpatient Follow Up Home Health Referral OP Other Information Indwelling Devices: LINES ALL Duration Peripheral Line Left Antecubital 18 Gauge 1 day Vital Signs (last recorded): Most Recent Systolic BP: 114 mmHg (08/02/24743) Most Recent Diastolic BP: 74 mmHg (08/02/24743) Pulse: 104 (08/02/24 1200) Resp: 16 (08/02/24743) Most Recent Temperature: 37.11 C (08/02/24743) Weight: 104.7 kg (230 lb 13.2 oz) (07/30/24 1036) SpO2: 95 % (08/02/24743) O2 flow rate: 1 L/MIN (08/01/24 2300) Allergies: Patient has no known allergies. Activity: as tolerated Diet: age appropriate diet Code Status: Full Code Condition on Discharge: stable Isolation status: None Cognition: normal HOSPITAL CONSULTS ORDERED: ADULT PHYSICAL THERAPY CONSULT IP ADULT OCCUPATIONAL THERAPY CONSULT IP REFERRING PHYSICIAN: REF: SELF NO STREET ADDRESS AVAILABLE PRIMARY CARE PROVIDER: PCP: Yury Cash MD [address] [place] [phone] (office) [phone] (fax) Note: To contact a physician responsible for this patients hospital care, please call [email or web address] [phone]. I certify this patient is confined to the home and needs intermittent senior care care, physical therapy and/or speech therapy, or continues to need occupational therapy. The patient is under my care and I have authorized services on this plan of care. The clinical findings of decrease in functional mobility secondary to decreased strength, decreased balance, and decreased endurance due to recent hospitalization and overall medical condition support the need for home health, and the patientdemonstrates a considerable and taxing effort when attempting to leave the home. The patient had a [id number]-xy-[id number] encounter with an allowed provider type on 08/02/2024 and the encounter was related to the primary reason for home health care. Under situations in which I am an acute/post acute facilityphysician who will not be following the patient's plan of care, I authorized services on this plan of care and I transfer the patient for plan of care certification to the primary care physician named below who will follow the patient and update the plan of care. Primary care physician Yury Cash MD I certify this patient is confined to the home and needs intermittent senior care care, physical therapy and/or speech therapy, or continues to need occupational therapy. The patient is under my care and I have authorized services on this plan of care. The clinical findings of decrease in functional mobility secondary to decreased strength, decreased balance, and decreased endurance due to recent hospitalization and overall medical condition support the need for home health, and the patientdemonstrates a considerable and taxing effort when attempting to leave the home. The patient had a ikqi-hj-hhsz encounter with an allowed provider type on 08/02/24 and the encounter was related to the primary reason for home health care. Under situations in whichI am an acute/post acute facility physician who will not be following the patient's plan of care, Iauthorized services on this plan of care and I transfer the patient for plan of care certification to the primary care physician named below who will follow the patient and update the plan of care. Primary care physician Yury Cash MD I spent a total of 38 minutes coordinating, documenting, and providing care for this patient excluding time spent in the performance of separately billed services. documented in this encounter Discharge Instructions * Discharge Instr - AVS* Diego Guan DO - 08/02/2024 12:30 PM EDT Discharge Date: 08/02/2024 The information below provides you with the instructions and the list of medications you need to betaking following discharge from the hospital. If you have any questions, please ask before leaving. If you have questions after leaving, you can reach us at the numbers below. YOUR HOSPITAL PROVIDERS: Discharging Provider: Diego Guan DO Provider Department: Hospital Medicine To reach this provider Tuesday through Tuesday (8:00 AM to 4:30 PM) for any questions or test results: Call [phone]. For after-hours concerns: Call [phone] and have your provider paged or the provider weatherization operations manager for the Department of Hospital Medicine paged. Please note, the discharging provider will not be able to provide you with any medications refills.Please discuss these with your primary care provider. Worsening Symptoms: If you have new symptoms, or your symptoms get worse, please contact your Discharge Provider or Primary Care Provider (PCP). If these providers are not available, you can go to your local [facility] or [facility] during their business hours. In an EMERGENCY situation: Call 911 or go to the nearest emergency room. A BRIEF SUMMARY OF YOUR HOSPITAL STAY: You came to the hospital with: complaint of shortness of breath Your main diagnosis at discharge was: Atrial Fibrillation, Cellulitis Operations & Procedures performed: none Complications: none significant Inpatient test results that are pending at discharge: none Advance Directive Documented: Advance Directive Does the Patient have an Advance Directive? No YOUR FOLLOW UP APPOINTMENTS: Primary Care Provider Information: PCP: Yury Cash MD [address] [place] [phone] (office) [phone] (fax) An appointment was requested with your PCP (Yury Cash MD) within 7 days. (Please take this form to this visit with your primary care physician.) You need the following studies in the future: none INSTRUCTIONS: Diet: Previous diet Activity: As tolerated * [facility] Frnanie Jansen - 08/02/2024 12:23 PM EDT Gomez, when discussing your care with treatment team you were found to be medically stable for discharge on 08.02.24. [facility] will be contacting you to set up first home visit. I also sent a referral to [facility] to help with your care after the home health agency discharges you, they will be in contact with you if you are accepted into the program. If you have any questions about you discharge you can call [facility], you can contact me directly at [phone]. Thanks for allowing me to participate in your care, Frannie Jansen BSN, RN Registered Nurse Molded Goods Operator [facility] [phone] Patient Care Team: Kim Overton RN as Certified Corporate Travel Executive (Registered Nurse) [phone] If you have Home Care Services, you should have a visit within 48 hours. documented in this encounter Progress Notes * Diego Guna DO - 08/01/2024 7:53 AM EDT Images from the original note were not included. [facility] ACU-241/ INTERVAL HISTORY: Follow-up for atrial fibrillation. Doing okay this morning, did have atrial fibrillation with RVR yesterday afternoon that required IV metoprolol. Denies any chest pain or shortness of breath this morning. Overall feels stronger and better. Has not had a bowel movement since admission. Objective Physical Exam Most Recent Vital Signs: BP: 131 mmHg/75 mmHg (08/01/24742) Pulse: 119 (08/01/24742) Resp: 20 (08/01/24742) Temp: 37.56 C (08/01/24742) Temp Summary: Temp Min: 36.2 C (97.2 F) Max: 37.6 C (99.7 F) SpO2: 97 % (08/01/24742) O2 flow rate: 2 L/MIN (08/01/24742) Supplemental O2 Delivery: Room Air, None (08/01/24742) Constitutional: no acute distress, (+) chronically ill CV: irregular rate, no murmur, gallops or rub Chest: normal respiratory effort, decreased at bases Abdomen: normal: soft, bowel sounds normal, no masses, tenderness or organomegaly Extremities: no clubbing, cyanosis, right lower extremity warmer to touch, scar from previous surgery noted, left lower extremity less warm to touch, improving erythematous, no pain to palpation Skin: warm, dry, intact: Peripheral Line Lower;Right Arm 18 Gauge (Active) Number of days: 2 Peripheral Line Left Antecubital 18 Gauge (Active) Number of days: 1 STUDIES: Encounter Orders Reviewed Assessment and Plan IMPRESSION : Principal Problem: Atrial fibrillation with RVR (HCC) Active Problems: Hyperlipidemia associated with type 2 diabetes mellitus (HCC) Paroxysmal atrial fibrillation (HCC) S/P right coronary artery (RCA) stent placement Type 2 diabetes mellitus with diabetic neuropathy, without long-term current use of insulin (HCC) Chronic kidney disease, stage 3a (HCC) PVD (peripheral vascular disease) (HCC) Type 2 myocardial infarction (HCC) Cellulitis of left lower extremity Resolved Problems: * No resolved hospital problems. * DIFFERENTIAL AND PLAN: Atrial fibrillation with RVR Type 2 myocardial infarction Coronary artery disease status post stent Generalized weakness Doing somewhat better this morning, did have atrial fibrillation with RVR yesterday afternoon that required IV metoprolol and oral metoprolol. Better rate control this morning but remains in atrial fibrillation. Broaden metoprolol to 50 mg succinate twice daily. Monitor heart rate closely throughout today. Possible discharge tomorrow if heart rate remains controlled. Left lower extremity cellulitis Continues to show improvement at this time, continue ceftriaxone 2 g daily. Monitor for continued improvement. Chronic medical conditions Peripheral vascular disease, has declined surgical interventions previously. May need Dopplers to evaluate pulses Type 2 diabetes CKD stage 3 PHARMACOLOGIC VTE PROPHYLAXIS: Enoxaparin CODE STATUS: Full Code EXPECTED DISCHARGE DATE: 08/02/2024 I spent a total of 56 minutes coordinating, documenting, and providing care for this patient excluding time spent in the performance of separately billed services or time spent by another provider/QHP. * Diego Guan DO - 07/31/2024 7:30 AM EDT Images from the original note were not included. [facility] ACU-241/ INTERVAL HISTORY: Follow-up for atrial fibrillation RVR. Doing well overall, did have some shortness of breath yesterday evening that did improve with Lasix. Overall doing well this morning, no chest pain or shortnessof breath. Objective Physical Exam Most Recent Vital Signs: BP: 149 mmHg/71 mmHg (07/31/24599) Pulse: 86 (07/31/24599) Resp: 22 (07/31/24599) Temp: 37.61 C (07/31/24599) Temp Summary: Temp Min: 36 C (96.8 F) Max: 37.6 C (99.7 F) SpO2: 99 % (07/31/24599) O2 flow rate: 2 L/MIN (07/31/24599) Supplemental O2 Delivery: Nasal Cannula (07/31/24599) Constitutional: no acute distress, (+) chronically ill CV: irregular rate, no murmur, gallops or rub Chest: normal respiratory effort, decreased at bases Abdomen: normal: soft, bowel sounds normal, no masses, tenderness or organomegaly Extremities: no clubbing, cyanosis, right lower extremity warmer to touch, scar from previous surgery noted, left lower extremity less warm to touch, improving erythematous, no pain to palpation Skin: warm, dry, intact: Peripheral Line Lower;Right Arm 18 Gauge (Active) Number of days: 1 Peripheral Line Left;Lower 20 Gauge (Active) Number of days: 1 STUDIES: Encounter Orders Reviewed CBC Assessment and Plan IMPRESSION : Principal Problem: Atrial fibrillation with RVR ([facility]) Active Problems: Hyperlipidemia associated with type 2 diabetes mellitus ([facility]) Paroxysmal atrial fibrillation ([facility]) S/P right coronary artery (RCA) stent placement Type 2 diabetes mellitus with diabetic neuropathy, without long-term current use of insulin ([facility]) Chronic kidney disease, stage 3a ([facility]) PVD (peripheral vascular disease) ([facility]) Type 2 myocardial infarction ([facility]) Cellulitis of left lower extremity Resolved Problems: * No resolved hospital problems. * DIFFERENTIAL AND PLAN: Atrial fibrillation with RVR Type 2 myocardial infarction Coronary artery disease status post stent Generalized weakness Doing better at this time, remains in sinus rhythm. Continue prior to admission metoprolol succinate 50 mg daily. TTE does show normal ejection fraction however, patient does have valvular insufficiency. Did require Lasix 40 mg IV yesterday, start Lasix 40 mg oral once daily today and monitor closely. PT/OT recommending outpatient therapy or home health. Possible discharge tomorrow if continues to show improvement. Left lower extremity cellulitis Showing improvement at this time, continue ceftriaxone 2 g daily. Monitor for continued improvement. Chronic medical conditions Peripheral vascular disease, has declined surgical interventions previously. May need Dopplers to evaluate pulses Type 2 diabetes CKD stage 3 PHARMACOLOGIC VTE PROPHYLAXIS: Enoxaparin CODE STATUS: Full Code EXPECTED DISCHARGE DATE: 08/01/2024 I spent a total of 57 minutes coordinating, documenting, and providing care for this patient excluding time spent in the performance of separately billed services or time spent by another provider/QHP. documented in this encounter H&P Notes * iDego Guan DO - 07/30/2024 8:17 AM EDT Images from the original note were not included. [facility] MH2 ACU-241/01 PRESENTING PROBLEM: Generalized weakness HPI: Gomez Suarez is an 88 year old male, with a PMHx of CAD s/p stent, Atrial Fibrillation, DLD, CKD III, PVD, who presents for evaluation of generalized weakness. The patient is accompanied by his , who assists with history taking. The patient notes over the past several days has noticed increasing weakness and coolness of the left lower extremity. The patient notes his right lower extremityis typically cooler 2 peripheral vascular disease and has gotten a bypass of the right lower extremity previously. He noticed increasing redness and coolness to the touch of the left lower extremity.Given this in the generalized weakness, he presented to the ER for further evaluation. In the ER, the patient had lab work which was notable for elevated troponins did trend down. The patient also had a leukocytosis of 14. A sepsis alert was called, patient did receive 2 L of normal saline, was initially in atrial fibrillation with RVR but this improved with fluids as well as a dose of metoprolol tartrate 5 mg IV. Given the weakness, the patient was recommended for admission. Subjective Patient's past history, medications, and allergies were reviewed. Objective Physical Exam Most Recent Vital Signs: BP: 118 mmHg/72 mmHg (07/30/24844) Pulse: 68 (07/30/24844) Resp: 21 (07/30/24844) Temp: 36.72 C (07/30/24844) Temp Summary: Temp Min: 36.7 C (98.1 F) Max: 37.9 C (100.2 F) SpO2: 94 % (07/30/24844) O2 flow rate: Supplemental O2 Delivery: Room Air, None (07/30/24844) Constitutional: no acute distress, (+) chronically ill CV: irregular rate, no murmur, gallops or rub Chest: normal respiratory effort, decreased at bases Abdomen: normal: soft, bowel sounds normal, no masses, tenderness or organomegaly Extremities: no clubbing, cyanosis, right lower extremity cool to touch, scar from previous surgerynoted, left lower extremity warm to touch, erythematous, no pain to palpation Skin: warm, dry, intact: STUDIES: Encounter Orders Reviewed Assessment and Plan IMPRESSION: Principal Problem: Atrial fibrillation with RVR ([facility]) Active Problems: Hyperlipidemia associated with type 2 diabetes mellitus ([facility]) Paroxysmal atrial fibrillation ([facility]) S/P right coronary artery (RCA) stent placement Type 2 diabetes mellitus with diabetic neuropathy, without long-term current use of insulin ([facility]) Chronic kidney disease, stage 3a ([facility]) PVD (peripheral vascular disease) ([facility]) Type 2 myocardial infarction ([facility]) Cellulitis of left lower extremity Resolved Problems: * No resolved hospital problems. * DIFFERENTIAL AND PLAN: Atrial fibrillation with RVR Type 2 myocardial infarction Coronary artery disease status post stent Generalized weakness Patient presents with generalized weakness after a recent upper respiratory illness, found have atrial fibrillation with RVR upon arrival to the emergency department. Patient did receive 2 L of normal saline fluid as well as metoprolol tartrate IV, with improvement of the patient's heart rate and the patient did convert to normal sinus rhythm. Elevated troponins likely secondary to demand from atrial fibrillation with RVR. No signs of ACS on ECG. 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 Check TTE. PT/OT consult. Left lower extremity cellulitis Will start ceftriaxone 2 g daily. Monitor for improvement. Chronic medical conditions Peripheral vascular disease, has declined surgical interventions previously. May need Dopplers to evaluate pulses Type 2 diabetes CKD stage 3 PHARMACOLOGIC VTE PROPHYLAXIS:Enoxaparin CODE STATUS: Full Code EXPECTED DISCHARGE DATE: 08/01/2024 I spent a total of 82 minutes coordinating, documenting, and providing care for this patient excluding time spent in the performance of separately billed services or time spent by another provider/QHP. documented in this encounter Procedure Notes * Jonathan Ward MD - 07/31/2024 8:19 PM EDTAssociated Order(s): EKG REASON FOR STUDY: TACHYCARDIA CONCLUSIONS: Atrial fibrillation with rapid ventricular response Right bundle branch block Left posterior fascicular block Bifascicular block Cannot rule out Inferior infarct (cited on or before 30-Jul-2024) Abnormal ECG When compared with ECG of 31-Jul-2024 18:45, No significant change was found Ventricular Rate: 142 Atrial Rate: 153 QRS Duration: 138 QT/QTc: 338/519 ms P-R-T Webster: 0 : 128 : -25 degrees * Jonathan Ward MD - 07/31/2024 6:45 PM EDTAssociated Order(s): EKG REASON FOR STUDY: SVT CONCLUSIONS: Atrial fibrillation with rapid ventricular response Right bundle branch block Left posterior fascicular block Bifascicular block Cannot rule out Inferior infarct (cited on or before 30-Jul-2024) When compared with ECG of 30-Jul-2024 08:08, Atrial fibrillation has replaced Sinus rhythm Vent. rate has increased by 81 bpm Left posterior fascicular block is now Present ST now depressed in Anterior leads Ventricular Rate: 150 Atrial Rate: 138 QRS Duration: 130 QT/QTc: 308/486 ms P-R-T Webster: 0 : 135 : -25 degrees * Adria Henry MD - 07/30/2024 8:08 AM EDTAssociated Order(s): EKG REASON FOR STUDY: RHYTHM CHANGE CONCLUSIONS: Sinus rhythm with occasional Premature ventricular complexes Right bundle branch block Cannot rule out Inferior infarct , age undetermined Abnormal ECG When compared with ECG of 30-Jul-2024 05:07, Sinus rhythm has replaced Atrial fibrillation Vent. rate has decreased by 62 bpm The axis Shifted left Ventricular Rate: 69 Atrial Rate: 69 TN Interval: 160 QRS Duration: 130 QT/QTc: 440/471 ms P-R-T Webster: 31 : 52 : -3 degrees documented in this encounter Consult Notes * Estrellita Taylor, OT - 07/30/2024 1:53 PM EDTAssociated Order(s): ADULT OCCUPATIONAL THERAPY CONSULT IP GENERAL EVALUATION - Occupational Therapy [facility] [address] [address] Name: Gomez Suarez Location: [address] Date: 07/30/2024 Time: 1:57 PM Gomez Suarez is a 88 year old male. Patient Status: Inpatient Insurance: Payor: [facility] Plan: [facility] PREFERRED ENHANCED MP-DD Product Type: *No Product type* Patient Seen: at bedside, nursing cleared patient for therapy Patient Identified By: Name, ID Band and Date Diagnosis: Atrial fibrillation with RVR (07/30/241314) Status of treatment: Evaluation completed (07/30/241314) Orders: OT evaluation and treatment (07/30/241314) Weight Bearing Status: Weight bearing as tolerated (07/30/241314) Precautions: Safety;Skin (07/30/241314) Total Treatment Time: 15 (07/30/241314) Past Medical History: Past Medical History: Diagnosis Date AAA (abdominal aortic aneurysm) ([facility]) 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 Aortic stenosis CAD (coronary artery disease) CKD (chronic kidney disease) stage 3, GFR 30-59 ml/min ([facility]) 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 DM type 2, goal A1c below 7 09/20/2011 Gout 10/14/2014 Hyperlipidemia Other after-cataract, not obscuring vision 04/07/2009 Paroxysmal atrial fibrillation ([facility]) PVD (peripheral vascular disease) (H[facility]) Recurrent falls Recurrent UTI Urinary retention Vitreous degeneration 04/01/2010 Past Surgical History: Past Surgical History: Procedure Laterality Date COLONOSCOPY [...] performed by Bharath Monaco MD at [place] [facility] [place] REMOVAL OF TONSILS, UNDER AGE 13 approx age 11 SACROILIAC JOINT INJECT W/GUIDANCE Bilateral 05/09/2023 INJECTION SACROILIAC JOINT performed by Roberto Li DO at OR [facility] SACROILIAC JOINT INJECT W/GUIDANCE Bilateral 09/29/2023 INJECTION SACROILIAC JOINT performed by Roberto Li DO at OR [facility] Social History/Disposition Lives with: Spouse (07/30/241314) Assistance available: Yes (07/30/241314) Dwelling type: Single story home (07/30/241314) Entry steps: 3 (right handrail) (07/30/241314) Inside steps: None (07/30/241314) Bedroom location: 1st floor (07/30/241314) Bath location: 1st floor full bath (07/30/241314) Prior Level of Function Reported by: Patient (07/30/241314) Ambulation: Ambulatory with device (07/30/241314) Ambulatory Device: Cane (And rolling walker) (07/30/241314) Grooming: Independent (07/30/241314) Bathing: Independent (07/30/241314) Dressing: Independent (07/30/241314) Feeding: Independent (07/30/241314) Toileting: Independent (07/30/241314) Meal Prep: Independent (07/30/241314) Homemaking: Dependent (07/30/241314) Shopping: Dependent (07/30/241314) Medication Management: Dependent (07/30/241314) Money Management: Dependent (07/30/241314) Driving: No (07/30/241314) Durable Medical Equipment at home: Straight cane;Rolling walker (07/30/241314) Subjective: Gomez was pleasant and cooperative during evaluation. His was present for session. Pain: No complaints of pain Observations Consciousness: Alert;Eyes open (07/30/241314) Orientation: Oriented times 4 (07/30/241314) Psychosocial: Patient can communicate basic needs;Patient can converse in a social setting (07/30/241314) Sitting posture: Forward head;Rounded shoulders (07/30/241314) Standing posture: Forward head;Rounded shoulders (07/30/241314) Safety awareness: The Patient verbalizes insight of current deficits.;The Patient demonstrates carryover of insight during functional tasks. (07/30/241314) Other Findings Coordination: LUE;RUE;Intact (07/30/241314) Tone: LUE;RUE;Normal tone (07/30/241314) Current Functional Status: Bilateral Upper Extremity Hand Dominance: Right (07/30/241314) Range of Motion: WNL (07/30/241314) Strength Assessment: WNL (07/30/241314) Self Care Toileting: Contact Guard (07/30/241314) Dressing Upper Body: Dependent (07/30/241314) Lower Body: Maximal Assistance (07/30/241314) Functional Ambulation Assistive Device: Rolling walker (07/30/241314) Distance in feet:: 90 (07/30/241314) Level of Assistance: Contact Guard (07/30/241314) OT Transfers Sit-Stand: Supervision (Please comment) (07/30/241314) Stand-Sit: Supervision (Please comment) (07/30/241314) Toilet: Contact Guard (07/30/241314) Balance Sit (Static): Good (07/30/241314) Sit (Dynamic): Fair (07/30/241314) Stand (Static): Fair (07/30/241314) Stand (Dynamic): Poor (07/30/241314) Alarm Status Patient positioned in: Bed (07/30/241314) With: Pressure pad alarm intact and functioning and call mcintosh in reach (07/30/241314) Patient and Family Goals: to get well Patient Education Education Topic: Role of OT;Plan of care goals (07/30/241314) Review of Precautions: Safety (07/30/241314) Review of Exercises: Verbal Exercises Provided (07/30/241314) Method of Education: Verbalized to patient (07/30/241314) Education Provided to: Patient (07/30/241314) Response to Education: Receptive and agreeable to education;Needs further education (07/30/241314) Barriers to learning: Medical status (07/30/241314) Preferred learning method: Combination (07/30/241314) Treatment Provided: Evaluation Moderate Complexity 15 minutes - 07696: Patient was cooperative, pleasant, and alert during treatment session. Moderate complexity evaluation performed and 3-5 activitylimitations were identified, including ADL deficit, functional mobility deficit, bed mobility deficit, and impaired balance. Minimal or moderate modification of the functional task was necessary to complete the evaluation. Deficits Requiring O.T. Treatment: Deficits requiring O.T. treatment needs: ADL/self-care;Balance;Functional mobility;Safety;Weakness (07/30/241314) Goals: Bathing: Upper: modified independent (100% with device and additional time). Lower: modifiedindependent (100% with device and additional time) Dressing: Upper: modified independent (100% with device and additional time). Lower: modified independent (100% with device and additional time). Bed Mobility with: Supine to Sit: modified independent (with device or slow) Sit to supine: modified independent (with device or slow). Transfers with: Sit to Stand: modified independent (with device or slow) Stand to Sit: modified independent (with device or slow) Toilet: modified independent (with device or slow). Demonstrates toileting at modified independent (100% with device and additional time) Goal Time Frame: 3 to 5 treatments per week Assessment: Gomez is a 88 year old who presents with atrial fibrillation with RVR. He reports he lives with his who is able to assist him. He presents with deficits in transfers, functional ambulation, and activities of daily living. He would benefit from continued skilled occupational therapy services to maximize his safety and independence during daily task. Would consider home with post-acute care services which may include outpatient therapy or home health. The level of care will be determined in collaboration with the patient, family/caregiver, and care team members. Treatment Plan: Safety, Bed mobility training, Functional Ambulation, Transfer training, Balance activities, and ADL training Anticipated Frequency (on eval): 3 to 5 times per week (07/30/241314) AM-PAC Help From Another Person Eating Meals: None (07/30/241314) Help From Another Person Taking Care of Personal Grooming: A little (07/30/241314) Help From Another Person To Put On/Take Off Upper Body Clothing: Total (07/30/241314) Help From Another Person To Put On/Take Off Lower Body Clothing: Total (07/30/241314) Help From Another Person Toileting: A little (07/30/241314) Help From Another Person Bathing: A lot (07/30/241314) OT AM-PAC Score: 14 (07/30/241314) OT AM-PAC t-Scale Score: 33.39 (07/30/241314) A portion of this AM-PAC assessment not scored based on functional assessment due to full ADL not assessed upon evaluation; rather clinical decision making utilized based on current findings and/or prior level of function. Please refer to future AM-PAC calculations of functional ability as they become available. Treatment time: * Timothy Torres, PT - 07/30/2024 1:30 PM EDTAssociated Order(s): ADULT PHYSICAL THERAPY CONSULT IP GENERAL EVALUATION - Physical Therapy [address] [address] Name: Gomez Suarez Location: [facility] MH2 ACU-241/01 Date: 07/30/2024 Time: 1:30 PM Gomez Suarez is a/an 88 year old male. Patient Status: Inpatient Insurance: Payor: [facility] Plan: [facility] PREFERRED ENHANCED MP-DD Product Type: *No Product type* Patient Seen: at bedside, nursing cleared patient for therapy Patient Identified By: Name, ID Band and Date Diagnosis: Afib w/RVR; L foot cellulitis (07/30/241314) Status of treatment: Evaluation completed (07/30/241314) Orders: PT evaluation and treatment (07/30/241314) Weight Bearing Status: Weight bearing as tolerated (07/30/241314) Precautions: Skin;Safety;Falls;Cardiac (07/30/241314) Total Treatment Time--free text: 15 (07/30/241314) Past Medical History: Past Medical History: Diagnosis Date AAA (abdominal aortic aneurysm) ([facility]) 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 Aortic stenosis CAD (coronary artery disease) CKD (chronic kidney disease) stage 3, GFR 30-59 ml/min ([facility]) 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 DM type 2, goal A1c below 7 09/20/2011 Gout 10/14/2014 Hyperlipidemia Other after-cataract, not obscuring vision 04/07/2009 Paroxysmal atrial fibrillation (HCC) PVD (peripheral vascular disease) ([facility]CC) Recurrent falls Recurrent UTI Urinary retention Vitreous degeneration 04/01/2010 Past Surgical History: Past Surgical History: Procedure Laterality Date COLONOSCOPY [...] performed by Bharath Monaco MD at [place] [facility] [place] REMOVAL OF TONSILS, UNDER AGE 12 approx age 11 SACROILIAC JOINT INJECT W/GUIDANCE Bilateral 05/09/2023 INJECTION SACROILIAC JOINT performed by Roberto Li DO at OR [facility] SACROILIAC JOINT INJECT W/GUIDANCE Bilateral 09/29/2023 INJECTION SACROILIAC JOINT performed by Roberto Li DO at OR [facility] Subjective: Gomez is seen in room and is found sitting at edge of bed, awake, alert and willing to participate. His is present in the room. She reports that Gomez uses a cane in the house but morerecently has been using his rolling walker in the house because of falling episodes and notes that he has a rollator that he uses when they go out. Social History/Disposition Lives with: Spouse (07/30/241314) Assistance available: Yes (07/30/241314) Dwelling type: Single story home (07/30/241314) Entry steps: 3 (right handrail) (07/30/241314) Inside steps: None (07/30/241314) Bedroom location: 1st floor (07/30/241314) Bath location: 1st floor full bath (07/30/241314) Prior Level of Function Reported by: Patient (07/30/241314) Ambulation: Ambulatory with device (07/30/241314) Ambulatory Device: Rolling walker (07/30/241314) Devices at home: Rollator;Rolling walker;Straight cane (07/30/241314) Observations Consciousness: Alert (07/30/241314) Orientation: Oriented times 4 (07/30/241314) Psychosocial: Patient can communicate basic needs;Patient can converse in a social setting (07/30/241314) Sitting Posture: Forward head;Rounded shoulders (07/30/241314) Standing Posture: Forward head;Rounded shoulders (07/30/241314) Pain: No complaints of pain during treatment. Observation: L forefoot erythematous and has maceration of skin between toes and superficial skin breakdown between toes. Nursing notified. Range of Motion Range of Motion: WFL (for transfers and ambulation with assistive device) (07/30/241314) Strength Assessment Strength Assessment: Deficits noted (07/30/241314) WNL, except: LLE;RLE (07/30/241314) LLE: 4/5 (07/30/241314) RLE: 4/5 (07/30/241314) P.T. Bed Mobility Supine-Sit: Supervision (07/30/241314) Sit-Supine: Supervision (07/30/241314) Transfers Sit-Stand: Supervision (07/30/241314) Stand-Sit: Supervision (07/30/241314) W/C-Bed/Mat: Contact Guard (07/30/241314) Ambulation: Distance ambulated (feet): 90' demonstrating slow pace, slightly wide base of support. Assistive Device: Rolling walker Assist: Contact Guard Balance Sit (Static): Good (07/30/241314) Sit (Dynamic): Fair (07/30/241314) Stand (Static): Fair (07/30/241314) Stand (Dynamic): Poor (requires assistive device for safe balance) (07/30/241314) Patient and or Family Goal(s): to get well and to return home Patient Education Review of Precautions: Safety (07/30/241314) Safety Awareness: Patient verbalizes insight of current deficits;Patient demonstrates carryover of insight during functional tasks;Patient can communicate basic needs (07/30/241314) Preferred learning method: Combination (07/30/241314) Barriers to learning: None (07/30/241314) Method of Education: Verbalized to patient (07/30/241314) Topic of Education: Safety with mobility and Use of assistive device Method of Education: Verbal discussion and explanation provided to patient: demonstrated the exercise and or task Treatment Provided: Evaluation Moderate Complexity 15 minutes - 91702: Patient was cooperative and alert during treatment session. Moderate complexity evaluation performed and 1-2 personal factors orcomorbidities were identified that will impact plan of care, including cardiac history and significant PVD. Patient presents with limitations in gait, balance, endurance, and safety, which will impact plan of care. These limitations will be addressed by the goals set for this patient. Alarm Status Patient positioned in: Bed (07/30/241314) With: Call mcintosh in reach (07/30/241314) Treatment Status: Treatment at bedside (07/30/241314) Goals: Demonstrate Transfers with: Sit to stand: modified independent (with device or slow) Stand to sit: modified independent (with device or slow) Bed to chair: modified independent (with device or slow) Demonstrate Ambulation: assistive device: rolling walker distance in feet: 150' or greater for functional household distances level of assistance on level surface: modified independent (with device or slow) to supervision (with cues) Demonstrate Stairclimbing: Number of steps: 4 up and down, rail on right, and Level of Assistance: supervision (with cues) Time Frame: 2-3 treatment days Assessment: Gomez is an 88 y.o. male admitted with Afib RVR and has significant PVD in his LE's for which he has had a R bypass procedure. His L foot is notably erythematous and he has maceration and some superficial skin breakdown between his toes. Gomez demonstrates mild mobility deficits with transfers and ambulation and due to his PVD and lack of protective sensation in his feet, his balance is negatively affected and he reports that he has had 4 falls backward in this calendar year. Gomez would be most safe using a rolling walker for his gait rather than his cane and I encouraged him to usehis rolling walker. Gomez would benefit from skilled PT services while in the hospital to help to improve and ensure safety with gait on levels and stairs and would consider home with post- acute care services which may include outpatient therapy or home health. The level of care will be determined in collaboration with the patient, family/caregiver, and care team members. Deficits requiring P.T. treatment needs: Safety;Mobility;Balance;Endurance (07/30/241314) Equipment Needs: none identified at present Treatment Plan: Transfer training, Gait training, and Elevation training Anticipated Frequency (on eval): 3 to 5 times per week (07/30/241314) AM PAC Score with Stairs: 21 13:15 - 13:30 documented in this encounter Nursing Notes * Nan Lan RN - 07/31/2024 9:48 PM EDT Hospitalist notified that patient remains in Afib RVR with a rate of 120-140's. Obtained set of vital signs. * Penelope Comer RN - 07/31/2024 7:35 PM EDT Tele continues SVT/Afib 150s, pt asymptomatic. Dr Shan Robbins notified * Penelope Comer RN - 07/31/2024 6:47 PM EDT 1759 tele SVT 150s pt lying in bed, resp even and unlabored. Denies pain, dizziness, palpitations. Color flesh, skin dry and warm. Instructed to deep breathe and cough, bear down. Tele shows uncontrolled Afib at one point, EKG at bedside done. Darleen MOSHER notified. Metoprolol 5mg IVP given. * Cesilia Cardona RN - 07/31/2024 4:00 AM EDT Patient's bed alarm sounded and patient was found sitting on the edge of the bed with his blood on his abdomen. The IVL in his left hand had become dislodged. IVL was removed. Patient was also incontinent of moderate amount of urine. Blood was cleansed from patient's arm and abdomen, and clean adult brief was placed on patient. * Cesilia Cardona RN - 07/31/2024 1:45 AM EDT Patient woke out of a sound sleep moaning loudly in pain. He states pain is in his right lower abdomen, which is distended, and hot and tender to touch. ROLANDO Benedict, aware and assessed patient. When ROLANDO Benedict, arrived patient's abdomen was not as distended and warm to touch. Patient told ROLANDO Benedict, that his pain was in his bladder area. Order received to bladder scan and straight cath if needed. Patient was bladder scanned for 758 and straight cathed for 750. * Bailey Shaffer RN - 07/30/2024 11:30 AM EDT Dual Licensed Skin Assessment completed by CHRIS Avalos and CHRIS Dominguez. The patient is/has a N/A Skin Breakdown (includes non blanchable erythema): No Patient's left lower leg red, edematous, and warm. There are blisters between each toe on the left foot. The doctor is aware. The blisters are open to air, with serous drainage. documented in this encounter ED Notes * Gomez Farrar MD - 07/30/2024 5:10 AM EDT HISTORY OF PRESENT ILLNESS Gomez Suarez is a 88 year old male who presents to the ED for evaluation of No chief complaint on file.. The patient was seen at 07/30/24 0510. 88-year-old male presents with generalized weakness. He states that he has had a cough ongoing for the past few days and subjective fevers at home with generalized weakness and fatigue. No chest pain. No shortness of breath. He does have pain in his bilateral lower extremities. He states that he did have bypass surgery at [facility] for the right lower extremity and that it was recommended he have the left lower extremity done however he did not feel that he would be a good surgical candidate and did not receive much benefit from having the right done and thus has chosen for medical management. He states that his feet are chronically cold and his sensation is significantly decreased. Does have chronic pain in the feet however making it difficult for him to ambulate. States that the pain has worsened over the past few weeks. History provided by: spouse Weakness, Generalized Severity: Moderate Onset quality: Gradual Timing: Constant Progression: Worsening Chronicity: Recurrent Associated symptoms: cough, fever and shortness of breath Review of Systems Constitutional: Positive for fatigue and fever. Respiratory: Positive for cough and shortness of breath. Musculoskeletal: Positive for gait problem. All other systems reviewed and are negative. The patient's allergies, past history, and medications were reviewed. PHYSICAL EXAM Initial Vitals (see all): BP 128/93 | Pulse 134 | Resp 22 | Temp 100.2 | O2 92 %, Room Air, None | Weight 103.5 kg | Height 177.8 cm | BMI 32.74 kg/m2 Initial Pain Assessment (see all): 0 (no pain)/10 ([facility] Adult Scale 0-10) Physical Exam Constitutional: General: He is in acute distress. Appearance: He is ill-appearing. HENT: Head: Normocephalic and atraumatic. Nose: Nose normal. Mouth/Throat: Mouth: Mucous membranes are moist. Eyes: Extraocular Movements: Extraocular movements intact. Pupils: Pupils are equal, round, and reactive to light. Cardiovascular: Rate and Rhythm: Tachycardia present. Rhythm irregular. Pulses: Normal pulses. Heart sounds: Normal heart sounds. Pulmonary: Effort: No respiratory distress. Breath sounds: Wheezing and rhonchi present. Abdominal: General: There is no distension. Palpations: Abdomen is soft. Tenderness: There is no abdominal tenderness. Musculoskeletal: General: Tenderness present. Cervical back: Normal range of motion and neck supple. Right lower leg: No edema. Left lower leg: No edema. Feet: Comments: Bilateral feet cool to touch, decreased sensation Skin: Capillary Refill: Capillary refill takes less than 2 seconds. Coloration: Skin is pale. Neurological: General: No focal deficit present. Mental Status: He is oriented to person, place, and time. Psychiatric: Mood and Affect: Mood normal. Behavior: Behavior normal. PROCEDURES AND TREATMENTS ED Orders | ED Results MEDICAL DECISION MAKING Nursing notes and vital signs were reviewed. ED Course as of 07/30/24 0817 TueJul 30, 2024 0816 EKG shows sinus rhythm with otherwise normal intervals and axis. Right bundle-branch block present. No acute signs of ischemia noted otherwise by my interpretation. [DM] ED Course User Index [DM] Lenny Vernon, DO Differential Diagnoses Based on my history, physical exam, and evaluation, the differential includes, but is not limited, to the following diagnoses: Sepsis, Bronchitis, Viral URI, Ischemic foot, AAA rupture. 88-year-old male presents with generalized weakness and subjective fevers and chills at home with cough. Sepsis workup was initiated on his arrival. He was borderline febrile here and tachycardic. EKG reveals atrial fibrillation with rapid ventricular response. Was given Lopressor. Labs show a slight leukocytosis and slight lactic acidosis. With the cough was concerned this could be pneumonia. Was started on broad-spectrum antibiotics. Chest x-ray unremarkable. Labs do show an elevated BNP and troponin. No chest pain at this time and I do suspect this is elevated from demand ischemia secondary to the rapid ventricular response. Of note he does have very poor perfusion of his bilateral lower extremities. Dopplerable pulses had to be obtained. He states that he has been offered surgery in the past but has declined. His pain has worsened but the cool extremities with decreased pulses are chronic per patient family. Did discuss with medicine team. Evaluation admission pending repeat troponin to ensure stable. Problems Addressed: Lactic acidosis: acute illness or injury Sepsis, due to unspecified organism, unspecified whether acute organ dysfunction present (HCC): acute illness or injury Amount and/or Complexity of Data Reviewed Independent Historian: spouse Labs: ordered. Details: Slight leukocytosis and slight lactic acidosis. Question this could be early sepsis. Radiology: ordered and independent interpretation performed. Details: No acute findings. No pneumonia. No pulmonary vascular congestion. ECG/medicine tests: ordered and independent interpretation performed. Details: Atrial fibrillation with rapid ventricular response. Rate of 128. Discussion of management or test interpretation with external provider(s): Did discuss with the medicine team. Admission and evaluation pending repeat troponin to ensure his staple. Risk OTC drugs. Prescription drug management. Decision regarding hospitalization. Emergency major surgery. Risk Details: Did discuss patient's poor peripheral vascular perfusion and potential need for surgery. Patient states that he has been evaluated for this before and does not wish to proceed with surgical intervention given he has had bypass on the right lower extremity with what he describes as no significant improvement Clinical Impressions SOB (shortness of breath) Sepsis, due to unspecified organism, unspecified whether acute organ dysfunction present (HCC) Atrial fibrillation with RVR (HCC) Peripheral vascular disease (HCC) Elevated troponin Heart failure, etiology unknown (HCC) Lactic acidosis Disposition: Signed out pending repeat Troponin and admission Gomez Farrar * Leonie Carlisle RN - 07/30/2024 4:58 AM EDT Pt reports that he has had a cough since yesterday. Reports he also has throbbing in both lower legs for the past "few weeks". documented in this encounter Miscellaneous Notes * Pt Handout (on AVS) - Manda Sahu RN - 08/02/2024 1:46 PM EDT [id number] Metoprolol Brand Name(s): Kapspargo Sprinkle, Lopressor, Toprol, Toprol XL, Dutoprol (as a combination product containing Metoprolol, Hydrochlorothiazide), Lopressidone (as a combination product containing Chlorthalidone, Metoprolol), Lopressor HCT (as a combination product containing Metoprolol, Hydrochlorothiazide); also available generically WHY is this medicine prescribed? Metoprolol is used alone or in combination with other medications to treat high blood pressure. It also is used to treat chronic (long-term) angina (chest pain). Metoprolol is also used to improve survival after a heart attack. Metoprolol also is used in combination with other medications to treat heart failure. Metoprolol is in a class of medications called beta blockers. It works by relaxing blood vessels and slowing heart rate to improve blood flow and decrease blood pressure. High blood pressure is a common condition and when not treated, can cause damage to the brain, heart, blood vessels, kidneys and other parts of the body. Damage to these organs may cause heart disease, a heart attack, heart failure, stroke, kidney failure, loss of vision, and other problems. In addition to taking medication, making lifestyle changes will also help to control your blood pressure. These changes include eating a diet that is low in fat and salt, maintaining a healthy weight, exercising at least 30 minutes most days, not smoking, and using alcohol in moderation. HOW should this medicine be used? Metoprolol comes as a tablet, an extended-release (long-acting) tablet, and an extended-release capsule to take by mouth. The regular tablet is usually taken once or twice a day with meals or immediately after meals. The extended-release tablet and extended-release capsule are usually taken once a day. To help you remember to take metoprolol, take it around the same time(s) every day. Follow the directions on your prescription label carefully, and ask your doctor or pharmacist to explain any part you do not understand. Take metoprolol exactly as directed. Do not take more or less of it or take it more often than prescribed by your doctor. The extended-release tablet may be split. Swallow the whole or half extended- release tablets whole;do not chew or crush them. Swallow the extended-release capsules whole; do not split, chew, or crush them. If you are unable to swallow the capsules, you may open the capsule and sprinkle the contents over a spoonful of soft food, such as applesauce, pudding, or yogurt and swallow the mixture immediately. Do not swallow the mixture more than 60 minutes after you sprinkle the contents of the capsule. Your doctor may start you on a low dose of metoprolol and gradually increase your dose. Metoprolol helps to control your condition but will not cure it. Continue to take metoprolol even if you feel well. Do not stop taking metoprolol without talking to your doctor. If you suddenly stop taking metoprolol you may experience serious heart problems such as severe chest pain, a heart attack, or an irregular heartbeat. Your doctor will probably want to decrease your dose gradually over 1 to 2 weeks and will monitor you closely. Are there OTHER USES for this medicine? Metoprolol is also used sometimes to treat certain types of irregular heartbeats. Talk to your doctor about the possible risks of using this medication for your condition. This medication may be prescribed for other uses; ask your doctor or pharmacist for more information. What SPECIAL PRECAUTIONS should I follow? Before taking metoprolol, tell your doctor and pharmacist if you are allergic to metoprolol, any other medications, or anyof the ingredients in metoprolol tablets, extended-release tablets, or extended-release capsules. Ask your pharmacist for a list of the ingredients. tell your doctor and pharmacist what prescription and nonprescription medications, vitamins, nutritional supplements, and herbal products you are taking or plan to take. Your doctor may need to change the doses of your medications or monitor you carefully for side effects. tell your doctor if you have a slow or irregular heartbeat or heart failure. Your doctor may tell you not to take metoprolol. tell your doctor if you have or have ever had asthma or other lung diseases; problems with bloodcirculation; pheochromocytoma (a tumor that develops on a gland near the kidneys and may cause highblood pressure and fast heartbeat); heart or liver disease;diabetes; or hyperthyroidism (an overactive thyroid gland). Also tell your doctor if you have ever had a serious allergic reaction to a foodor any other substance. tell your doctor if you are , plan to become , or are . If you become while taking metoprolol, call your doctor. if you are having surgery, including dental surgery, tell the doctor or dentist that you are taking metoprolol. you should know that metoprolol may make you drowsy. Do not drive a car or operate machinery until you know how this medication affects you. do not drink any alcoholic drinks or take any prescription or nonprescription medications that contain alcohol if you are taking metoprolol extended-release capsules. Ask your doctor or pharmacistif you do not know if a medication that you plan to take contains alcohol. you should know that metoprolol may increase the risk of hypoglycemia (low blood sugar) and prevent the warning signs and symptoms that would tell you that your blood sugar is low. Let your doctorknow if you are unable to eat or drink normally or are vomiting while you are taking metoprolol. You should know the symptoms of low blood sugar and what to do if you have these symptoms. you should know that if you have allergic reactions to different substances, your reactions may be worse while you are using metoprolol, and your allergic reactions may not respond to the usual doses of injectable epinephrine. What SPECIAL DIETARY instructions should I follow? IUnless your doctor tells you otherwise, continue your normal diet. What should I do IF I FORGET to take a dose? Skip the missed dose and continue your regular dosing schedule. Do not take a double dose to make up for a missed one. What SIDE EFFECTS can this medicine cause? Metoprolol may cause side effects. Tell your doctor if any of these symptoms are severe or do not go away: dizziness or lightheadedness tiredness depression diarrhea nausea dry mouth stomach pain vomiting gas or bloating heartburn constipation rash or itching cold hands and feet runny nose Some side effects can be serious. The following symptoms are uncommon, but if you experience anyof them, call your doctor immediately: shortness of breath or difficulty breathing wheezing swelling of the hands, feet, ankles, or lower legs weight gain fainting rapid, pounding, or irregular heartbeat Metoprolol may cause other side effects. Call your doctor if you have any unusual problems while taking this medication. If you experience a serious side effect, you or your doctor may send a report to the Food and Drug Administration's (FDA) MedWatch Adverse Event Reporting program online (https://www.fda.gov/Safety/MedWatch) or by phone ( ). What should I know about STORAGE and DISPOSAL of this medication? Keep this medication in the container it came in, tightly closed, and out of reach of children. Store it at room temperature and away from excess heat and moisture (not in the bathroom). It is important to keep all medication out of sight and reach of children as many containers (such as weekly pill minders and those for eye drops, creams, patches, and inhalers) are not child-resistant and young children can open them easily. To protect young children from poisoning, always lock safety caps and immediately place the medication in a safe location - one that is up and away and out of their sight and reach. https://www.upandaway.org Unneeded medications should be disposed of in special ways to ensure that pets, children, and otherpeople cannot consume them. However, you should not flush this medication down the toilet. Instead,the best way to dispose of your medication is through a medicine take-back program. Talk to your pharmacist or contact your local garbage/recycling department to learn about take-back programs in your community. See the FDA's Safe Disposal of Medicines website (https://goo.gl/c4Rm4p) for more information if you do not have access to a take-back program. What should I do in case of OVERDOSE? In case of overdose, call the poison control helpline at . Information is also available online at https://www.poisonhelp.org/help. If the victim has collapsed, had a seizure, has trouble breathing, or can't be awakened, immediately call emergency services at 101. Symptoms of overdose may include the following: nausea vomiting decreased consciousness or loss of consciousness (coma) irregular, fast, or slow heartbeat chest pain dizziness fatigue or weakness fainting difficulty breathing cough or wheezing swelling of the hands, feet, ankles, or lower legs What OTHER INFORMATION should I know? Keep all appointments with your doctor. Your blood pressure should be checked regularly to determine your response to metoprolol. Your doctor may ask you to check your pulse (heart rate). Ask your pharmacist or doctor to teach you how to take your pulse. If your pulse is faster or slower than it should be, call your doctor. Do not let anyone else take your medication. Ask your pharmacist any questions you have about refilling your prescription. It is important for you to keep a written list of all of the prescription and nonprescription ([id number]) medicines you are taking, as well as any products such as vitamins, minerals, or otherdietary supplements. You should bring this list with you each time you visit a doctor or if you areadmitted to a hospital. It is also important information to carry with you in case of emergencies. This report on medications is for your information only, and is not considered individual patient advice. Because of the changing nature of drug information, please consult your physician or pharmacist about specific clinical use. The [employer] represents that the information provided hereunder was formulated with a reasonable standard of care, and in conformity with professional standards in the field. The [employer] makes no representations or warranties, express or implied, including, but not limited to, any implied warranty of merchantability and/or fitness for a particular purpose, with respect to such information and specifically disclaims all such warranties. Users are advised that decisions regarding drug therapy are complex medical decisions requiring the independent, informed decision of an appropriate health care asst, and the information is provided for informational purposes only. The entire monograph for a drug should be reviewed for a thorough understanding of the drug's actions, uses and side effects. The [employer] does not endorse or recommend the use of any drug.The information is not a substitute for medical care. [facility] Patient Medication Information?. Copyright, 2023. [employer], [facility], [address], [place], [place]. All Rights Reserved. Duplication for commercial use must be authorized by [facility]. Selected Revisions: July 15, 2023. [facility] Patient Medication Information?. Copyright, 2023 * Pt Handout (on AVS) - Manda Sahu RN - 08/02/2024 1:46 PM EDT [id number] Furosemide Brand Name(s): Lasix; also available generically IMPORTANT WARNING: Furosemide is a strong diuretic ('water pill') and may cause dehydration and electrolyte imbalance.It is important that you take it exactly as told by your doctor. If you experience any of the following symptoms, call your doctor immediately: decreased urination; dry mouth; thirst; nausea; vomiting; weakness; drowsiness; confusion; muscle pain or cramps; or rapid or pounding heartbeats. WHY is this medicine prescribed? Furosemide is used alone or in combination with other medications to treat high blood pressure. Furosemide is used to treat edema (fluid retention; excess fluid held in body tissues) caused by various medical problems, including heart, kidney, and liver disease. Furosemide is in a class of medications called diuretics ('water pills'). It works by causing the kidneys to get rid of unneeded water and salt from the body into the urine. High blood pressure is a common condition and when not treated, can cause damage to the brain, heart, blood vessels, kidneys and other parts of the body. Damage to these organs may cause heart disease, a heart attack, heart failure, stroke, kidney failure, loss of vision, and other problems. In addition to taking medication, making lifestyle changes will also help to control your blood pressure. These changes include eating a diet that is low in fat and salt, maintaining a healthy weight, exercising at least 30 minutes most days, not smoking, and using alcohol in moderation. HOW should this medicine be used? Furosemide comes as a tablet and as a solution (liquid) to take by mouth. It usually is taken once or twice a day. When used to treat edema, furosemide may be taken daily or only on certain days of the week. When used to treat hypertension, take furosemide around the same time(s) every day. Follow the directions on your prescription label carefully, and ask your doctor or pharmacist to explain any part you do not understand. Take furosemide exactly as directed. Do not take more or less of it ortake it more often than prescribed by your doctor. Furosemide controls high blood pressure and edema but does not cure these conditions. Continue to take furosemide even if you feel well. Do not stop taking furosemide without talking to your doctor. Are there OTHER USES for this medicine? This medicine is sometimes prescribed for other uses; ask your doctor or pharmacist for more information. What SPECIAL PRECAUTIONS should I follow? Before taking furosemide, tell your doctor and pharmacist if you are allergic to furosemide, sulfonamide medications, any other medications, or any of the ingredients in furosemide tablets or solution. Ask your pharmacist or check the patient information for a list of the ingredients. tell your doctor and pharmacist what prescription and nonprescription medications, vitamins, nutritional supplements, and herbal products you are taking or plan to take. Be sure to mention any of the following: aminoglycoside antibiotics such as amikacin, gentamicin (Garamycin), or tobramycin (Gato, Diogo); angiotensin-converting enzyme (LEXI) inhibitors such as benazepril (Lotensin, in Lotrel), captopril (Capoten), fosinopril, lisinopril (in Prinzide, in Zestoretic), moexipril (Univasc, inUniretic), perindopril (Aceon), quinapril (Accupril, in Accuretic), ramipril (Altace), and trandolapril (Mavik, in Tarka); angiotensin II receptor antagonists (ARB) such as azilsartan (Edarbi, Edarbyclor), candesartan (Atacand, in Atacand HCT), eprosartan (Teveten, in Teveten HCT), irbesartan (Avapro, in Avalide), losartan (Cozaar, in Hyzaar), olmesartan (Benicar, in Alden, Benicar HCT), telmisartan (Micardis, in Micardis HCT), and valsartan (Diovan, in Diovan HCT, Exforge); aspirin and other mega icylates; barbiturates such as phenobarbital and secobarbital (Seconal); corticosteroids such as betamethasone (Celestone), budesonide (Entocort), cortisone (Cortone), dexamethasone (Decadron, Dexpak, Dexasone, others), fludrocortisone (Floriner), hydrocortisone (Cortef, Hydrocortone), methylprednis olone (Medrol, Meprolone, others), prednisolone (Prelone, others), prednisone (Deltasone, Meticorten, Sterapred, others), and triamcinolone (Aristocort, Azmacort); cisplatin (Platinol); cyclosporine (Gengraf, Neoral, Sandimmune); digoxin (Lanoxin), ethacrynic acid (Edecrin); indomethacin (Indocin);laxatives; lithium (Lithobid); medications for diabetes, high blood pressure and pain; methotrexate(Trexall); probenecid (Probalan, Probenemid); and phenytoin (Dilantin, Phenytek). Your doctor may need to change the doses of your medications or monitor you carefully for side effects. if you are taking sucralfate (Carafate), take it 2 hours before or after you take furosemide. tell your doctor if you have kidney disease. Your doctor may tell you not to take furosemide. tell your doctor if you have or have ever had any condition that stops your bladder from emptying completely, diabetes, gout, systemic lupus erythematosus (SLE, a chronic inflammatory condition), or liver disease. tell your doctor if you are , plan to become , or are breast- feeding. Do not breast-feed while taking this medicine. If you become while taking furosemide, call your doctor. if you are having surgery, tell the doctor that you are using furosemide. plan to avoid unnecessary or prolonged exposure to sunlight and to wear protective clothing, sunglasses, and sunscreen. Furosemide may make your skin sensitive to sunlight. you should know that furosemide may cause dizziness, lightheadedness, and fainting when you get up too quickly from a lying position. This is more common when you first start taking furosemide. Toavoid this problem, get out of bed slowly, resting your feet on the floor for a few minutes before standing up. Alcohol can add to these side effects. What SPECIAL DIETARY instructions should I follow? If your doctor prescribes a low-salt or low-sodium diet, or to eat or drink increased amounts of potassium-rich foods (e.g., bananas, prunes, raisins, and orange juice) in your diet, follow these instructions carefully. What should I do IF I FORGET to take a dose? Take the missed dose as soon as you remember it. However, if it is almost time for your next dose, skip the missed dose and continue your regular dosing schedule. Do not take a double dose to make upfor a missed one. What SIDE EFFECTS can this medicine cause? Tell your doctor if any of these symptoms are severe or do not go away: frequent urination blurred vision headache constipation diarrhea Some side effects can be serious. If you have any of these symptoms or those listed in the IMPORTANT WARNINGS section, call your doctor immediately or seek emergency medical treatment: fever ringing in the ears loss of hearing rash hives blisters or peeling skin itching difficulty breathing or swallowing yellowing of the skin or eyes If you experience a serious side effect, you or your doctor may send a report to the Food and Drug Administration's (FDA) MedWatch Adverse Event Reporting program online (https://www.fda.gov/Safety/MedWatch) or by phone ( ). What should I know about STORAGE and DISPOSAL of this medication? Keep this medicine in the container it came in, tightly closed, and out of reach of children. Storeit at room temperature and away from excess heat and moisture (not in the bathroom). Dispose of unused furosemide solution after 90 days. It is important to keep all medication out of sight and reach of children as many containers (such as weekly pill minders and those for eye drops, creams, patches, and inhalers) are not child-resistant and young children can open them easily. To protect young children from poisoning, always lock safety caps and immediately place the medication in a safe location - one that is up and away and out of their sight and reach. https://www.[employer].org Unneeded medications should be disposed of in special ways to ensure that pets, children, and otherpeople cannot consume them. However, you should not flush this medication down the toilet. Instead,the best way to dispose of your medication is through a medicine take-back program. Talk to your pharmacist or contact your local garbage/recycling department to learn about take-back programs in your community. See the FDA's Safe Disposal of Medicines website (https://goo.gl/c4Rm4p) for more information if you do not have access to a take-back program. What should I do in case of OVERDOSE? In case of overdose, call the poison control helpline at . Information is also available online at https://www.poisonhelp.org/help. If the victim has collapsed, had a seizure, has trouble breathing, or can't be awakened, immediately call emergency services at 721. Symptoms of overdose may include: extreme thirst dry mouth dizziness confusion extreme tiredness vomiting stomach cramps What OTHER INFORMATION should I know? Keep all appointments with your doctor and the laboratory. Your blood pressure should be checked regularly, and blood tests should be done occasionally. Before having any laboratory test, tell your doctor and the laboratory personnel that you are taking furosemide. Do not let anyone else take your medicine. Ask your pharmacist any questions you have about refilling your prescription. It is important for you to keep a written list of all of the prescription and nonprescription (fxls-bqs-qpiooys) medicines you are taking, as well as any products such as vitamins, minerals, or otherdietary supplements. You should bring this list with you each time you visit a doctor or if you areadmitted to a hospital. It is also important information to carry with you in case of emergencies. This report on medications is for your information only, and is not considered individual patient advice. Because of the changing nature of drug information, please consult your physician or pharmacist about specific clinical use. The [employer] represents that the information provided hereunder was formulated with a reasonable standard of care, and in conformity with professional standards in the field. The [employer] makes no representations or warranties, express or implied, including, but not limited to, any implied warranty of merchantability and/or fitness for a particular purpose, with respect to such information and specifically disclaims all such warranties. Users are advised that decisions regarding drug therapy are complex medical decisions requiring the independent, informed decision of an appropriate health care asst, and the information is provided for informational purposes only. The entire monograph for a drug should be reviewed for a thorough understanding of the drug's actions, uses and side effects. The [employer] does not endorse or recommend the use of any drug.The information is not a substitute for medical care. [facility] Patient Medication Information?. Copyright, 2023. The [employer], [address] [place] [address], [facility] [address], [place], [place]. All Rights Reserved. Duplication for commercial use must be authorized by [facility]. Selected Revisions: July 15, 2017. [facility] Patient Medication Information?. Copyright, 2023 * Pt Handout (on AVS) - Manda Sahu RN - 08/02/2024 1:45 PM EDT 81697 Discharge Instructions for Atrial Fibrillation You have been diagnosed with an abnormal heart rhythm called atrial fibrillation (AFib). This meansyour heart?s 2 upper chambers quiver rather than squeeze the blood out in a normal pattern. This leads to an irregular and sometimes rapid heartbeat. Some people will have symptoms such as a flip-flopping heartbeat, chest pain, lightheadedness, or shortness of breath. Other people may have no symptoms at all. AFib is serious because it affects the heart?s ability to fill with blood as it should. Blood clots may form. This increases the risk for stroke. Untreated, it can also lead to heart failure. AFib can be controlled. With treatment, most people lead normal lives. Treatment options Treatment for AFib depends on your age, symptoms, how long you have had it, and other factors. You will have a complete evaluation to find out if you have any abnormalities that caused your heart to go into AFib. This might be blocked heart arteries, heart valve problems, or a thyroid problem. Yourdoctor will assess your case and discuss choices with you. Treatment choices may include: Treating an underlying disorder that puts you at risk for atrial fibrillation. For example, correcting an abnormal thyroid or electrolyte problem, or treating a blocked heart artery. Restoring a normal heart rhythm with an electrical shock (cardioversion) or with an antiarrhythmic medicine (chemical cardioversion). Using medicine to control your heart rate and rhythm. Taking blood-thinning medicines (anticoagulants). These lower the risk for blood clot and stroke. Blood-thinners range from aspirin and clopidogrel to others such as rivaroxaban and warfarin. Having a procedure such as left atrial appendage closure. In this procedure, a small pouch in the top of your atrium is blocked off. This pouch is where blood clots often form. The procedure can prevent blood clots and reduce stroke risk without the need for a blood thinner. Doing catheter ablation or a surgical maze procedure. These procedures use different methods to create scar tissue in certain areas of heart. This stops the abnormal electrical signals that cause AFib. This may be an option when medicines don't work. It may be used instead of taking a medicine custodial. Your provider may advise other treatment choices. Managing risk factors for stroke and preventing heart failure are important parts of any treatment plan for AFib. Home care Take your medicines exactly as directed. Don?t skip doses. Work with your healthcare provider to find the right medicines and doses for you. Learn to take your own pulse. Keep a record of your results. Ask your provider which pulse ratesmean that you need medical attention. Slowing your pulse is often the goal of treatment. Ask your provider if it?s OK for you to use an automatic machine to check your pulse at home. Sometimes these machines don?t count the pulse correctly with AFib. Limit how much coffee, tea, cola, and other drinks with caffeine you have. Ask your provider if you should cut out all caffeine. Don't take qobk-vqw-flyuvdm medicines that have caffeine in them. Also don't take medicines withpseudoephedrine. Let your provider know what medicines you take. These include prescription and fliv-tbe-kdjhloq medicines, as well as any supplements. They interfere with some medicines given for AFib. Ask your provider if you can drink alcohol. Some people need to cut out alcohol to better treat AFib. If you are taking blood-thinner medicines, alcohol may interfere with them by increasing theireffect. Never take stimulants such as amphetamines or cocaine. These drugs can speed up your heart rate and trigger AFib. Manage your weight. If you are above your ideal body weight, losing excess pounds can reduce your incidence of AFib. Follow-up care Follow up with your healthcare provider as advised. When to call your healthcare provider Call your healthcare provider right away if you have any of the following: Weakness Dizziness Fainting Tiredness (fatigue) Shortness of breath Chest pain with increased activity A change in the usual regularity of your heartbeat, or an unusually fast heartbeat Last Reviewed Date: 2021 00:00:00 5683-4122 The [employer]. All rights reserved. This information is not intended as a substitute for professional medical care. Always follow your healthcare professional's instructions. * Pt Handout (on AVS) - Manda Sahu RN - 08/02/2024 1:45 PM EDT Images from the original note were not included. [id number] Understanding Atrial Fibrillation (AFib) Atrial fibrillation (AFib) is the most common type of arrhythmia. An arrhythmia is any problem withthe speed or pattern of the heartbeat. AFib causes fast, chaotic electrical signals in the atria. This makes it hard for the heart to work as it should. It affects how much blood your heart can pump out to the body. AFib may occur once in a while and go away on its own. This is called paroxysmal. Or it may continue for longer periods. This is called persistent. AFib can lead to serious problems, such as stroke. Your healthcare provider will need to watch and manage your condition. What happens during atrial fibrillation? The heart has an electrical system. This sends signals to control the heartbeat. As the signals move through the heart, they tell the heart?s upper chambers (atria) and lower chambers (ventricles) when to squeeze (contract) and relax. This lets blood move through the heart and out to the body and lungs. With AFib, the atria get abnormal signals. This causes them to contract in a fast and irregular way. They are out of sync with the ventricles. The atria have a harder time moving blood into the ventricles. Blood may then pool in the atria. This increases the risk for blood clots and stroke. The ventricles may contract too quickly and irregularly. They may not pump blood to the body and lungs as well as they should. This can weaken the heart muscle over time. This can lead to heart failure. Heart failure means the heart muscle can?t pump blood well. What causes atrial fibrillation? AFib is more common in older adults. It has many possible causes: Older age Coronary artery disease Heart valve disease Heart attack Heart surgery High blood pressure Thyroid disease Diabetes Lung disease Sleep apnea Heavy alcohol use In some cases of AFib, healthcare providers don't know the cause. What are the symptoms of atrial fibrillation? AFib may not cause symptoms. If symptoms do occur, they may include: A fast, pounding, irregular heartbeat Shortness of breath Tiredness Dizziness or fainting Chest pain How is atrial fibrillation treated? Treatments for AFib can include any of the below. Medicines. You may be prescribed: o Heart rate medicines to help slow down the heartbeat o Heart rhythm medicines to help the heart beat more regularly o Blood thinners or anti-clotting medicines to help reduce the risk for blood clots and stroke Left atrial appendage closure. Your healthcare provider may advise this to prevent stroke. You may need it if you are at high risk for stroke but have problems taking blood-thinner (anticoagulant)medicines. This is a procedure done through a catheter in the groin. A device is placed in the partof the heart. This is where most clots form. This area is called the left atrial appendage (JONATHAN). It's a pouch-like structure in the muscle wall of the left atrium. The device closes off the JONATHAN. This prevents clots moving from the heart to the brain and causing a stroke. Electrical cardioversion. Your healthcare provider uses special pads or paddles to send 1 or more brief electrical shocks to the heart. This can help reset the heartbeat to normal. Ablation. Long, thin tubes (catheters) are threaded through a blood vessel to the heart. In the heart, the catheters send out hot or cold energy to the places that cause the abnormal signals. Thisdestroys the problem tissue or cells. This improves the chances that your heart will stay in normalrhythm without using medicines. If your heart rate and rhythm can?t be controlled, you may need an AV node ablation and a pacemaker. These will help control the heart rate and regularity of the heartbeat. Surgery. Your healthcare provider may use a method to create scar tissue in the parts of the heart causing the abnormal signals. The scar tissue disrupts the abnormal signals. This may stop AFib from occurring. Most often, the left atrial appendage is closed off as well. Hybrid surgical-catheter ablation for AFib. This is used for people with AFib that continues or is hard to treat. It combines surgery with a catheter ablation. First, the surgeon makes small cuts (incisions) between the ribs in the chest or in the abdomen near the sternum. The surgeon puts a scope through the incisions. This is done to get to the backside and other areas of the heart. Energy is sent to the surface of the atria. This disrupts the abnormal electrical signals. Then a catheter is put into a vein in the groin. The catheter is guided into the heart. Using the catheter, radiofrequency ablation is done. This destroys any other tissue inside the heart that is causing the AFib. It's also done to assess the success of the surgery. This hybrid treatment may work better to block the abnormal electrical signals. It may be a more permanent fix for persistent AFib. What are possible complications of atrial fibrillation? Complications can include: Blood clots Stroke Dementia Heart failure When should I call my healthcare provider? Call your healthcare provider right away if you have any of these: Symptoms that don?t get better with treatment, or get worse New symptoms Last Reviewed Date: 2021 00:00:00 [id number] The [employer]. All rights reserved. This information is not intended as a substitute for professional medical care. Always follow your healthcare professional's instructions. * Care Plan - Hilda Esposito, CHRIS - 08/02/2024 5:24 AM EDT Clinical Goal(s): patient's HR will be <110 by the end of shift (08/02/24 0000) Possible barriers to meeting goal(s)/advancing plan of care: Afib with RVR Stability of the patient: Moderately stable - low risk of patient condition declining or worsening Summary regarding today's goal(s): Met: pt's HR stayed mainly in the low 100s by the end of the shift but did jump up into the 130s occasionally for a few seconds Recommendations: continue with plan of care * Care Plan - Bailey Shaffer RN - 08/01/2024 6:13 PM EDT Clinical Goal(s): Patient's heart rate will be <110 by the end of this shift. (08/01/24 0700) Possible barriers to meeting goal(s)/advancing plan of care: Afib with RVR Stability of the patient: Moderately stable - low risk of patient condition declining or worsening Summary regarding today's goal(s): Not Met: Goal not met; patient became tachycardic during ambulation. Recommendations: Continue to follow the plan of care * Ancillary Progress Note - Timothy Torres, PT - 08/01/2024 2:37 PM EDT PROGRESS NOTE - Physical Therapy [facility] [address] Name: Gomez Suarez Location: [place] [address] [id number] Date: 08/01/2024 Time: 2:27 PM Gomez Suarez is a/an 88 year old male. Patient Status: Inpatient Insurance: Payor: Gabrielle HOPKINS Plan: Gabrielle HOPKINS PREFERRED ENHANCED MP-DD Product Type: *No Product type* Patient Seen: at bedside, nursing cleared patient for therapy Patient Identified By: Name, ID Band and Date Diagnosis: Afib w/RVR; L foot cellulitis (08/01/241411) Status of treatment: Treatment completed (08/01/241411) Orders: PT evaluation and treatment (08/01/241411) Weight Bearing Status: Weight bearing as tolerated (08/01/241411) Precautions: Skin;Safety;Falls;Cardiac (08/01/241411) Total Treatment Time--free text: 20 (08/01/241411) Gomez is seen in brief a.m. session and for p.m. session. Subjective: Gomez is seen in room and is found in bed, awake, alert and willing to participate. In a.m. session he had to use the bathroom so ambulation to bathroom performed but he wanted to wait until p.m. to practice steps and walker further due to having dose of diuretic this morning. Pain: No complaints of pain P.T. Bed Mobility Supine-Sit: Not Tested (08/01/241411) Sit-Supine: Not Tested (08/01/241411) Transfers Sit-Stand: Modified Independent (08/01/241411) Stand-Sit: Modified Independent (08/01/241411) W/C-Bed/Mat: Modified Independent (08/01/241411) Toilet transfers: Modified independent Ambulation: Distance ambulated (feet): In a.m. session, ambulated 12' to bathroom then 18' after using bathroom. In p.m. session, ambulated 160' including stairs.. 2L O2 via n.c. used. No SOB reported. Assistive Device: Rolling walker Assist: Modified Independent Stair Training: Number of stairs: 4 Number of handrails: R handrail ascending and L handrail descending Level of Assistance: supervision for safety, no physical assistance given. Balance Sit (Static): Good (08/01/241411) Sit (Dynamic): Fair (08/01/241411) Stand (Static): Fair (08/01/241411) Stand (Dynamic): Poor (requires assistive device for safe balance) (08/01/241411) Patient and or Family Goal(s): to get well and to return home Topic of Education: Safety with mobility, Use of assistive device, and Stair training Method of Education: Verbal discussion and explanation provided to patient: demonstrated the exercise and or task Treatment Provided: Gait Training 26 minutes: gait training with rolling walker stair training Alarm Status Patient positioned in: Bed (08/01/241411) With: Call mcintosh in reach (08/01/241411) Patient Education Review of Precautions: Safety (08/01/241411) Safety Awareness: Patient verbalizes insight of current deficits;Patient demonstrates carryover of insight during functional tasks;Patient can communicate basic needs (08/01/241411) Preferred learning method: Combination (08/01/241411) Barriers to learning: None (08/01/241411) Method of Education: Verbalized to patient (08/01/241411) Assessment: Gomez demonstrates ability to safely walk functional household distances with 2L O2 via n.c. using a rolling walker. He also performed 4 steps with supervision and should be able to safelyperform his entry steps at home. Gomez should be safe to return home once he is medically cleared. Would consider home with post-acute care services which may include outpatient therapy or home healthif he is agreeable, or possibly cardiac rehab may be more appropriate for monitored exercise. The level of care will be determined in collaboration with the patient, family/caregiver, and care team members. Deficits requiring P.T. treatment needs: Safety;Mobility;Balance;Endurance (08/01/241411) Plan: Continue with current treatment plan established on evaluation. AM PAC Score with Stairs: 24 11:00 - 11:06 GT 6 min 14:12 - 14:27 GT 20 min * Ancillary Progress Note - Luis Eduardo Flowers, OT - 08/01/2024 10:00 AM EDT PROGRESS NOTE - Occupational Therapy [place] [id number] [facility] [address] Name: Gomez Suarez [id number] Date: 08/01/2024 Time: 10:47 AM Gomez Suarez is a 88 year old male. Patient Status: Inpatient Insurance: Payor: Gabrielle HOPKINS Plan: Gabrielle HOPKINS PREFERRED ENHANCED MP-DD Product Type: *No Product type* Patient Seen: at bedside, nursing cleared patient for therapy Patient Identified By: Name, ID Band and Date Diagnosis: a-fib (08/01/24999) Status of treatment: Treatment completed (08/01/24999) Orders: OT evaluation and treatment (08/01/24999) Weight Bearing Status: Weight bearing as tolerated (08/01/24999) Precautions: Safety;Skin;Falls (08/01/24999) Total Treatment Time: 29 (08/01/24999) Subjective: patient seen for OT, states that he hasn't had a bowel movement recently but he was given medication to help Pain: No complaints of pain Observations Consciousness: Alert;Eyes open (07/30/241314) Orientation: Oriented times 4 (07/30/241314) Psychosocial: Patient can communicate basic needs;Patient can converse in a social setting (07/30/241314) Sitting posture: Forward head;Rounded shoulders (07/30/241314) Standing posture: Forward head;Rounded shoulders (07/30/241314) Safety awareness: The Patient verbalizes insight of current deficits.;The Patient demonstrates carryover of insight during functional tasks. (07/30/241314) Other Findings Coordination: LUE;RUE;Intact (07/30/241314) Tone: LUE;RUE;Normal tone (07/30/241314) Current Functional Status: Activities of Daily Living: Self Care Toileting: Contact Guard (08/01/24999) Dressing Upper Body: Dependent (07/30/241314) Lower Body: Supervision (Please comment) (for undergarment) (08/01/24999) Functional Ambulation Assistive Device: Rolling walker (08/01/24999) Distance in feet:: 60 (10/02/24 1000) Level of Assistance: Contact Guard (08/01/24 1000) Bed Mobility Supine-Sit: Modified Independent (07/31/24 141) Sit-Supine: Modified Independent (07/31/24 141) OT Transfers Sit-Stand: Supervision (Please comment) (07/30/241314) Stand-Sit: Supervision (Please comment) (07/30/241314) Toilet: Supervision (Please comment) (08/01/24 1000) Balance Sit (Static): Fair (08/01/24999) Sit (Dynamic): Fair (08/01/24 1000) Stand (Static): Fair (08/01/24999) Stand (Dynamic): Poor (08/01/24999) Patient Education Education Topic: Role of OT;Plan of care goals (07/30/241314) Review of Precautions: Safety (07/30/241314) Review of Exercises: Verbal Exercises Provided (07/30/241314) Method of Education: Verbalized to patient (07/30/241314) Education Provided to: Patient (07/30/241314) Response to Education: Receptive and agreeable to education;Needs further education (07/30/241314) Barriers to learning: Medical status (07/30/241314) Preferred learning method: Combination (07/30/241314) Alarm Status Patient positioned in: Chair (08/01/24999) With: Pressure pad alarm intact and functioning and call mcintosh in reach (08/01/24999) Treatment Provided: Therapeutic Activity: 29 minutes Upper Extremity exercise Demonstrate Exercises: LUE;RUE;Shoulder;Elbow;1 set of 10;Flexion;Extension;Abduction;Adduction;Scapular protraction/retraction;Internal/external rotation (08/01/24999) Peformed in: Seated (08/01/24999) Deficits requiring O.T. treatment needs: ADL/self- care;Balance;Endurance;Weakness (08/01/24999) Assessment: patient did well with UE exercises and appropriate rest breaks. He was able to adjust his clothes and clean self after toileting. He was also able to change his own undergarment while sitting on the toilet. Ambulated to window and then to toilet. Patient had 2 episodes of slight loss ofbalance backwards when he was turning around. Plan: Safety, Bed mobility training, Functional Ambulation, Transfer training, Balance activities:,ADL training, and Endurance Anticipated Frequency (on eval): 3 to 5 times per week (08/01/24999) Equipment Equipment used in Therapy: Rolling walker (08/01/24 1000) AM-PAC Help From Another Person Eating Meals: None (08/01/24999) Help From Another Person Taking Care of Personal Grooming: A little (08/01/24999) Help From Another Person To Put On/Take Off Upper Body Clothing: A little (08/01/24999) Help From Another Person To Put On/Take Off Lower Body Clothing: A little (08/01/24999) Help From Another Person Toileting: A little (08/01/24999) Help From Another Person Bathing: A lot (08/01/24999) OT AM-PAC Score: 18 (08/01/24999) OT AM-PAC t-Scale Score: 38.66 (08/01/24999) HLM (Highest Level of Mobility) Goal: Level 6 walk 10 steps or more (08/01/24 0841) [id number] * Care Plan - Delores Hughes RN - 08/01/2024 6:59 AM EDT Clinical Goal(s): Patient's heart rate will be < 110 by end of shift. (07/31/24 2300) Possible barriers to meeting goal(s)/advancing plan of care: afib with RVR Stability of the patient: Moderately unstable - medium risk of patient condition declining or worsening Summary regarding today's goal(s): Not Met: Patient's heart rate has been in the 100's to 140's at times. Heart rate does go up with any activity. Was given PRN dose of IV metoprolol which helped a little, but heart rate continues to stay elevated. Told by doctor to just continue to monitor. Pt is asymptomatic. Recommendations: Continue to monitor heart rate and rhythm. Beta rita and antiarrhythmics as ordered. * Care Plan - Delores Hughes RN - 07/31/2024 10:56 PM EDT Clinical Goal(s): Patient's heart rate will be < 110 by end of shift. (07/31/24 1900) Possible barriers to meeting goal(s)/advancing plan of care: afib with RVR Stability of the patient: Moderately unstable - medium risk of patient condition declining or worsening Summary regarding today's goal(s): Not Met: Patient's heart rate continues to be above 110 with interventions. Recommendations: Continue to monitor heart rate and rhythm. Medications to lower heart rate and possibly return patient to NSR as ordered. * Ancillary Progress Note - Luis Eduardo Flowers OT - 07/31/2024 2:19 PM EDT PROGRESS NOTE - Occupational Therapy [facility] [address] Name: Gomez Suarez Location: [facility] ACU-241/01 Date: 07/31/2024 Time: 2:44 PM Gomez Suarez is a 88 year old male. Patient Status: Inpatient Insurance: Payor: [facility] Plan: [facility] PREFERRED ENHANCED MP-DD Product Type: *No Product type* Patient Seen: at bedside, nursing cleared patient for therapy Patient Identified By: Name, ID Band and Date Diagnosis: a-fib (07/31/241418) Status of treatment: Treatment completed (07/31/241418) Orders: OT evaluation and treatment (07/31/241418) Weight Bearing Status: Weight bearing as tolerated (07/31/241418) Precautions: Safety;Skin;Falls (07/31/241418) Total Treatment Time: 15 (07/31/241418) Subjective: patient asleep but easily aroused, present Pain: No complaints of pain Observations Consciousness: Alert;Eyes open (07/30/24 1315) Orientation: Oriented times 4 (07/30/24 1315) Psychosocial: Patient can communicate basic needs;Patient can converse in a social setting (07/30/241314) Sitting posture: Forward head;Rounded shoulders (07/30/241314) Standing posture: Forward head;Rounded shoulders (07/30/241314) Safety awareness: The Patient verbalizes insight of current deficits.;The Patient demonstrates carryover of insight during functional tasks. (07/30/241314) Other Findings Coordination: LUE;RUE;Intact (07/30/241314) Tone: LUE;RUE;Normal tone (07/30/241314) Current Functional Status: Activities of Daily Living: Self Care Toileting: Contact Guard (07/30/241314) Dressing Upper Body: Dependent (07/30/241314) Lower Body: Minimal Assistance (07/31/241418) Functional Ambulation Assistive Device: Rolling walker (07/30/241314) Distance in feet:: 90 (07/30/241314) Level of Assistance: Contact Guard (07/30/241314) Bed Mobility Supine-Sit: Modified Independent (07/31/241418) Sit-Supine: Modified Independent (07/31/241418) OT Transfers Sit-Stand: Supervision (Please comment) (07/30/241314) Stand-Sit: Supervision (Please comment) (07/30/241314) Toilet: Contact Guard (07/30/241314) Balance Sit (Static): Fair (07/31/241418) Sit (Dynamic): Fair (07/31/241418) Stand (Static): Fair (07/31/241418) Stand (Dynamic): Poor (07/31/241418) Patient Education Education Topic: Role of OT;Plan of care goals (07/30/241314) Review of Precautions: Safety (07/30/241314) Review of Exercises: Verbal Exercises Provided (07/30/241314) Method of Education: Verbalized to patient (07/30/241314) Education Provided to: Patient (07/30/241314) Response to Education: Receptive and agreeable to education;Needs further education (07/30/241314) Barriers to learning: Medical status (07/30/241314) Preferred learning method: Combination (09/30/24 1315) Alarm Status Patient positioned in: Bed (07/31/241418) With: Pressure pad alarm intact and functioning and call mcintosh in reach (07/31/241418) Treatment Provided: Self Residential Management Trainin minutes Deficits requiring O.T. treatment needs: ADL/self- care;Balance;Endurance;Weakness (07/31/241418) Assessment: patient instructed in use of code clerk to don and doff pants, and to doff socks. After instruction he was able to complete this with verbal cues. Instructed in sock aid to don socks. After instruction he was able to put sock onto the aid, assist to position the aid as he was getting his small toe caught. Plan: Safety, Bed mobility training, Functional Ambulation, Transfer training, ADL training, and Endurance Anticipated Frequency (on eval): 3 to 5 times per week (07/31/241418) Equipment Equipment used in Therapy: Hospital bed;Bottle And Glass Inspector;Sock aid (07/31/241418) AM-PAC Help From Another Person Eating Meals: None (07/31/241418) Help From Another Person Taking Care of Personal Grooming: A little (07/31/241418) Help From Another Person To Put On/Take Off Upper Body Clothing: Total (07/31/241418) Help From Another Person To Put On/Take Off Lower Body Clothing: A little (07/31/241418) Help From Another Person Toileting: A little (07/31/241418) Help From Another Person Bathing: A lot (07/31/241418) OT AM-PAC Score: 16 (07/31/241418) OT AM-PAC t-Scale Score: 35.96 (07/31/241418) HLM (Highest Level of Mobility) Goal: Level 7 walk 25 feet or more (07/31/24 1136) * Care Plan - Moni Bennett RN - 07/31/2024 2:04 PM EDT Clinical Goal(s): Patient will not fall this shift (07/31/24 0700) Possible barriers to meeting goal(s)/advancing plan of care: Pt admitted for generalized weakness and sepsis Stability of the patient: Moderately stable - low risk of patient condition declining or worsening Summary regarding today's goal(s): Met: Pt did not fall this shfit Recommendations: Continue to monitor patient, continue to assist patient to bathroom and around room * Ancillary Progress Note - Timothy Torres, PT - 07/31/2024 11:47 AM EDT PROGRESS NOTE - Physical Therapy [place] [id number] [facility] [address] Name: Gomez Suarez Location: [place] [address] Date: 07/31/2024 Time: 11:55 AM Gomez Suarez is a/an 88 year old male. Patient Status: Inpatient Insurance: Payor: [facility]rielle [facility] Plan: Gabrielle HOPKINS PREFERRED ENHANCED MP-DD Product Type: *No Product type* Patient Seen: at bedside, nursing cleared patient for therapy Patient Identified By: Name, ID Band and Date Diagnosis: Afib w/RVR; L foot cellulitis (07/31/241135) Status of treatment: Treatment completed (07/31/241135) Orders: PT evaluation and treatment (07/31/241135) Weight Bearing Status: Weight bearing as tolerated (07/31/241135) Precautions: Skin;Safety;Falls;Cardiac (07/31/241135) Total Treatment Time--free text: 11 (07/31/241135) Subjective: Gomez is seen in room and is found sitting at the edge of his bed, awake, alert, willingto participate. He is using 2L supplemental O2 via n.c. Pain: No complaints of pain during treatment. P.T. Bed Mobility Supine-Sit: Supervision (07/31/241135) Sit-Supine: Supervision (07/31/241135) Transfers Sit-Stand: Supervision (07/31/241135) Stand-Sit: Supervision (07/31/241135) W/C-Bed/Mat: Contact Guard (07/31/241135) Ambulation: Distance ambulated (feet): 125' x 2 with slow steady pace, slightly wide base of support, using 2L O2 via n.c. SpO2 92% at end of first walk. No shortness of breath reported or demonstrated. Assistive Device: Rolling walker Assist: Supervision for safety. No physical assistance needed. Balance Sit (Static): Good (07/31/241135) Sit (Dynamic): Fair (07/31/241135) Stand (Static): Fair (07/31/241135) Stand (Dynamic): Poor (requires assistive device for safe balance) (07/31/241135) Patient and or Family Goal(s): to get well and to return home Topic of Education: Safety with mobility and Use of assistive device Method of Education: Verbal discussion and explanation provided to patient: demonstrated the exercise and or task Treatment Provided: Gait Training 11 minutes: gait training with rolling walker Alarm Status Patient positioned in: Bed (07/31/241135) With: Call mcintosh in reach (07/31/241135) Patient Education Review of Precautions: Safety (07/31/241135) Safety Awareness: Patient verbalizes insight of current deficits;Patient demonstrates carryover of insight during functional tasks;Patient can communicate basic needs (07/31/241135) Preferred learning method: Combination (07/31/241135) Barriers to learning: None (07/31/241135) Method of Education: Verbalized to patient (07/31/241135) Assessment: Gomez is demonstrating functional ambulation with the rolling walker and appropriate supplemental O2. He would benefit from ensuring that he can perform the stairs safely, prior to his discharge home tomorrow. Gomez should be safe to return home once medically cleared and would benefit from post-acute PT services to continue to work on improving and maximizing his functional mobility, safety and tolerance for activity. Deficits requiring P.T. treatment needs: Safety;Mobility;Balance;Endurance (07/31/241135) Plan: Continue with current treatment plan established on evaluation and assess stairs tomorrow morning. AM PAC Score with Stairs: 22 11:36 - 11:47 * Care Plan - Cesilia Cardona RN - 07/31/2024 5:40 AM EDT Clinical Goal(s): Patient will be free from falls/injuries this shift (07/30/24 2300) Possible barriers to meeting goal(s)/advancing plan of care: Generalized weakness Stability of the patient: Moderately stable - low risk of patient condition declining or worsening Summary regarding today's goal(s): Met: Recommendations: Continue to do hourly rounds, follow fall protocol, and remind patient to ring forassistance * Care Plan - Bailey Shaffer RN - 07/30/2024 6:53 PM EDT Clinical Goal(s): Patient will remain free from falls/injury this shift. (07/30/24 1100) Possible barriers to meeting goal(s)/advancing plan of care: AFib with RVR Stability of the patient: Moderately stable - low risk of patient condition declining or worsening Summary regarding today's goal(s): Met: Goal met Recommendations: Continue with plan of care * Ancillary Progress Note - Kimberly Case RN - 07/30/2024 4:12 PM EDT CARE MANAGEMENT - ADULT INITIAL SCREENING [address] [address] Name: Gomez Suarez [address] Date: 07/30/2024 Time: 4:12 PM Discussed patient with the interdisciplinary care team. This Molded Goods Operator performed a chart review and met with Pt and his spouse Pretty at bedside to complete admission screen and assessed needs for transition planning. The senior care provider role and services were explained and emotional support was provided. Chief Complaint: No chief complaint on file. Molding Line Assistant met with Pt in order to complete care management assessment and to discuss DC planning. Pt was admitted to inpatient on 07/30/2024 from home after presenting with S/S of Atrial fibrillation with RVR (HCC). Pt describes having an intact family support system. Pt's medical decision maker has been identified as being his Pretty, who is involved with theDC planning process. Per review of the medical record, pt has no admitting MH Dx. Pt denies any current or prior Hx of substance abuse. Pt reports being able to write but has difficulty with reading due to blurry vision. Pt reports his manages his medications. Pt's primary pharmacy has been identified as being [facility] in [place]. Pt denies difficulty completing ADLs prior to admission. Pt denies difficulty paying for medications, utilities, and food. Pt reports home DME as being rolling walker, Rolator, cane, electric Scooter, [id number]. Prior Living Arrangements What was your living situation prior to admission/observation?: With Spouse (07/30/24 1609) Living Quarters: House (07/30/24 160) Number of steps to enter living quarters:: 3 (07/30/24 160) Do you have serious difficulty walking or climbing stairs? (5 years old or older): Yes (walking) (07/30/24 0907) History of falling: No (07/30/24 1500) Prior Level of Functioning Describe the patient's ability prior to admission/observation to perform ADLs: Performs independently (07/30/24 160) Describe the patient's mobility status prior to admission: Patient requires assistance with ambulation (07/30/24 160) Patient uses assistive device: Yes (07/30/24 160) If yes, choose:: Walker;Cane (07/30/24 160) Caregiver Information Patient Contacts Name Relation Home Work Mobile PRETTY SUAREZ Spouse [phone] Risk Stratification/Psychosocial/Care Gaps Risk Stratification Psycho Social / Medical Concerns Identified: Adjustment to illness/injury;Multiple Comorbidities;Chronic Kidney Disease (07/30/24 160) Accessed [facility] to connect patients to social care resources: No (07/30/24 160) OBRA or OPTIONS needed for placement: No (07/30/24 160) Readmission Risk Score: 15.69 (07/30/24 1601) AM-PAC Score With Stairs : 21 (07/30/24 1315) Prior to Admission Services Services Prior to Admission METALLIC YARN SLITTING MACHINE OPERATOR Services (Services received within the last 30 days with exception, Psych within last two years): Durable Medical Equipment (07/30/24 160) METALLIC YARN SLITTING MACHINE OPERATOR Durable Medical Equipment (DME) in home: Cane;Bedside commode;Grab bars/Rails;Wheelchair motorized;Walker Rolling;Other - Comment (Rolator) (07/30/241608) DME Name: Pt owns (07/30/24 160) [place] Dept. of Aging (PDA) Waiver Program: N/A (07/30/24 160) METALLIC YARN SLITTING MACHINE OPERATOR Transportation (Services received within the last 30 days): Family/Friends Personal Vehicle (07/30/241608) Outpatient Molded Goods Operator: Patient Care Team: Kim Overton RN as Certified Corporate Travel Executive (Registered Nurse) Patient/Family Expectations: Return home Once deemed medically appropriate, it is anticipated patient will DC home without needs pending continued medical work-up/evaluations/findings. Pt reports home DME as being rolling walker, Rolator, cane, electric Scooter, [id number]. Molding Line Assistant will continue to meet with treatment team in order to discuss DC planning/needs. Molding Line Assistant will continue to follow for any identified needs and or concerns which may arise. For further screening information, please refer to the Care Management flow document. * Communication - Eileen Torre RN - 07/30/2024 8:26 AM EDT Hand-Off - Nurse Communication Note Name: Gomez Suarez Location: Date: 07/30/2024 Time: 8:46 AM Nurse giving report: Eileen Torre RN Nurse receiving report: Bailey PEREZ Reason for SBAR handoff: Admission Immediate Concerns: critical labs: BNP 2848, troponin 183, 174, lactic 2.1 SITUATION: Admission date: 07/30/2024 Chief Complaint: No chief complaint on file. 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 Problem list: Principal Problem: Atrial fibrillation with RVR ([facility]) Active Problems: Hyperlipidemia associated with type 2 diabetes mellitus ([facility]) Paroxysmal atrial fibrillation ([facility]) S/P right coronary artery (RCA) stent placement Type 2 diabetes mellitus with diabetic neuropathy, without long-term current use of insulin ([facility]) Chronic kidney disease, stage 3a ([facility]) PVD (peripheral vascular disease) ([facility]) Type 2 myocardial infarction ([facility]) Resolved Problems: * No resolved hospital problems. * Activity: as tolerated Fall Risk or Safety Concerns: Fall Risk Isolation: None Isolation flowsheet: ASSESSMENT: Vital Signs: BP: 117/78 (07/30/24799) Temp: 37.9 C (100.2 F) (07/30/24458) Pulse: 71 (07/30/24799) Resp: 11 (07/30/24799) SpO2: 94 % (07/30/24799) Weight: 103.5 kg (228 lb 2.8 oz) (07/30/24458) Height: 177.8 cm (5' 10") (07/30/24458) Pain Assessment Flowsheet Row Most Recent Value Pain Assessment Scale isinger Adult Scale 0-10 Pain Score 3 (mild pain) Fall Scale: Fall Score: 45 (07/30/24501) Fall Interventions: Bed at low level;Floor free of clutter;Walk path free of obstacles (07/30/24501) Neurological: [place] Coma Scale - For patients greater than two years old Eyes Open: Spontaneous (07/30/24729) Best Verbal Response: Verbally appropriate for age (07/30/24729) Best Motor Response: Obeys commands appropriate for age (07/30/24729) Coma Score: 15 (07/30/24729) Respiratory: Respiratory WNL: X - Exceptions to WNL as documented below (07/30/24509) Cough: Non-Productive (07/30/24509) Depth/Rhythm: Regular (07/30/24509) Dyspnea Occurance: None (07/30/24509) Effort: Unlabored (07/30/24509) Cardiac: Cardiovascular WNL: X - Exceptions to WNL as documented below (07/30/24509) Rhythm: AFib (07/30/24509) Edema Assessment: +1 - Description (07/30/24509) Capillary Refill: 4 seconds (07/30/24509) Integumentary: Skin Description: Cool;Dry (07/30/24509) Skin Color: [place] (07/30/24509) Restraints: No orders of the defined types were placed in this encounter. Medications: see MAR Lines: Peripheral Line Lower;Right Arm 18 Gauge (Active) Number of days: 0 Peripheral Line Left;Lower 20 Gauge (Active) Number of days: 0 Treatment: As per hospitalist Labs: Labs This Encounter COMPREHENSIVE METABOLIC PANEL - Abnormal; Notable for the following components: Result Value Ref Range BUN 23 6 - 20 mg/dL GLUCOSE 181 70 - 120 mg/dL ALT 53 10 - 50 U/L All other components within normal limits BNP, NT-PRO - Abnormal; Notable for the following components: BNP, NT-Pro 2,848 <300 pg/mL All other components within normal limits Narrative: Exclude Heart Failure: <300 pg/mL Diagnose Heart Failure: Age <50 yr: >450 pg/mL 50-75 yr: >900 pg/mL >75 yr: >1800 pg/mL GFR is 30-59 mL/min: >1200 pg/mL or Age-adjusted values GFR <30 mL/min: do not use, not reliable Prognostic threshold: 1000 pg/mL TROPONIN T, HIGH SENSITIVITY - Abnormal; Notable for the following components: Troponin T, High Sensitivity 183 <=22 ng/L All other components within normal limits LACTATE, WHOLE BLOOD WITH REFLEX IF ABNORMAL - Abnormal; Notable for the following components: Lactate, Whole Blood 2.1 0.4 - 2.0 mmol/L All other components within normal limits CBC - Abnormal; Notable for the following components: WBC 14.22 4.00 - 10.80 K/uL HGB 10.7 14.0 - 16.8 g/dL HCT 35.4 40.0 - 48.4 % All other components within normal limits DIFFERENTIAL, AUTOMATED - Abnormal; Notable for the following components: WBC 14.22 4.00 - 10.80 K/uL Lymphocytes % 16.4 18.0 - 42.0 % Monocytes % 14.3 1.0 - 11.0 % Absolute Neutrophils 9.80 1.80 - 7.70 K/uL Absolute Monocytes 2.03 0.00 - 1.10 K/uL All other components within normal limits TROPONIN T, HIGH SENSITIVITY - Abnormal; Notable for the following components: Troponin T, High Sensitivity 174 <=22 ng/L All other components within normal limits RESPIRATORY PATHOGEN PANEL, PCR - Normal LIPASE - Normal PT INR - Normal Narrative: Warfarin Therapy INR: 2.0-3.0 conventional anticoagulation INR: 2.5-3.5 high intensity anticoagulation CBC WITH WBC DIFFERENTIAL Narrative: The following orders were created for panel order CBC WITH WBC DIFFERENTIAL. Procedure Abnormality Status --------- ------ CBC[[id number]] Abnormal Final result DIFFERENTIAL, AUTOMATED[[id number]] Abnormal Final result Please view results for these tests on the individual orders. EXTRA TUBES Narrative: The following orders were created for panel order EXTRA TUBES. Procedure Abnormality Status --------- ------ EXTRA GOLD TOP[[id number]] Final result Please view results for these tests on the individual orders. EXTRA GOLD TOP URINALYSIS, REFLEX TO CULTURE (NOT FOR NEUTROPENIC PATIENTS) Narrative: The following orders were created for panel order URINALYSIS, REFLEX TO CULTURE (NOT FOR NEUTROPENIC PATIENTS). Procedure Abnormality Status --------- ------ URINALYSIS, REFLEX TO CU...[[id number]] URINALYSIS, REFLEX TO CU...[[id number]] Please view results for these tests on the individual orders. URINALYSIS, REFLEX TO CULTURE (CUP ONLY) URINALYSIS, REFLEX TO CULTURE CULTURE, BLOOD CULTURE, BLOOD LACTATE,WHOLE BLOOD GLUCOSE METER, POINT OF CARE (COMMUNICATION ORDER) GLUCOSE METER, POINT OF CARE (COMMUNICATION ORDER) GLUCOSE METER, POINT OF CARE (COMMUNICATION ORDER) GLUCOSE METER, POINT OF CARE (COMMUNICATION ORDER) GLUCOSE METER, POINT OF CARE (COMMUNICATION ORDER) GLUCOSE METER, POINT OF CARE (COMMUNICATION ORDER) GLUCOSE METER, POINT OF CARE (COMMUNICATION ORDER) Diet: Orders Placed This Encounter Procedures Consistent Carbohydrate Diet : Number of Choices: 4 (60 grams) Intake and Output: Intake/Output Summary (Last 24 hours) at 07/30/2024 0846 Last data filed at 07/30/2024 0736 Gross per 24 hour Intake 1019.29 ml Output -- Net 1019.29 ml Patient Belongings and Home Medications RECOMMENDATIONS: Consults not completed: as per hospitalist Anticipated tests/studies/procedures: as per hospitalist Medication Reconcilliation completed for this Admission? Yes * ED Taxicab Driver Note - Eileen Torre RN - 07/30/2024 8:26 AM EDT Pt transported to second floor for admission at this time by this nurse via litter with all belongings. Pt remains on color television console monitor and IV fluids and Vancomycin continue to infuse per orders duringtransport. Pt's spouse accompanied pt to second floor. documented in this encounter Plan of Treatment Upcoming Encounters Date Type Department Care Team ([facility] Contact Info) Description 08/06/2024 9:00 AM EDT Nurse Only Ancillary [address] [phone] [place], Nurse Annual [address] [address] 08/07/2024 12:30 PM EDT Home Visit [facility] [address] [address] Dhara Sky, RN [address] [address] 08/14/2024 9:00 AM EDT Office Visit [address] [phone] Yury Cash MD [address] [place] [phone] 08/17/2024 10:30 AM EDT Home Visit [facility] [address] [place] [address] Marjorie Summers CRNP [address] [place] [address] Masha Rutledge, [facility] [address] [place] [address] 10/25/2024 7:00 AM EST [facility] [phone] [address] [address] 11/01/2024 11:40 AM EST Office Visit [address] [phone] Yury Cash MD [address] [place] [phone] 11/21/2024 8:30 AM EST Office Visit Cardiology, [facility] [address] [place] [address] Sajan Griffith PA-C [address] [place] [address] 05/29/2025 9:45 AM EDT Office Visit [facility] [address] [place], [place] [phone] Constantino Weber DO [address] [place], [place] [phone] Pending Results Name Type Priority Associated Diagnoses Date /Time CULTURE, BLOOD Lab STAT 07/30/2024 6:46 AM EDT CULTURE, BLOOD Lab STAT 07/30/2024 6:52 AM EDT Scheduled Orders Name Type Priority Associated Diagnoses Orde r Schedule EKG EKG STAT Screening for cardiovascular condition Perform Now for 1 Occurrences starting 07/30/2024 until 07/30/2024 Scheduled Referrals Name Type Priority Associated Diagnoses Orde r Schedule HOME HEALTH REFERRAL OP Referral Within 3 days (urgent) Cellulitis of left lower extremity Ordered: 08/02/2024 Health Maintenance Due Date Last Done Comments Adult Wellness Visit 2002 Colonoscopy 01/20/2016 01/19/2011, 12/29, 01/07/2011, Additional history exists Albumin/Creatinine Ratio 05/07/2023 022, 04/11/2021, 05/28/2020, Additional history exists Diabetic Foot Exam 06/08/2024 06/08/2023, 1 , 11/10/2021, Additional history exists COVID-19 Vaccine ( season) 2024 11/09/2022, 08/13/2021, 01/22/2021, Additional history exists HbA1c 01/16/2025 07/19/2024, 01/29, 02/10/2024, Additional history exists CKD PHOS USE SMARTSET 95141 02/09/202501/29, 02/10/2024, 01/06/2024, Additional history exists Depression Screening 04/24/2025 04/24/2024, 04/21/20 15 B-12 05/17/2025 05/17/2024, 05/0 05/2024, 07/07/2023, Additional history exists Diabetic Eye Exam 06/18/2025 06/18/2024, , 05/25/2024, Additional history exists CKD HGB USE SMARTSET 62601 08/02/202508/02, 08/01/2024, 07/31/2024, Additional history exists DTap/Tdap Vaccines (3 - [...] Procedure Name Priority Date/Time Associated Diagnosis Comments GLUCOSE METER, POINT OF CARE NESTOR 08/02/2024 11:36 AM EDT GLUCOSE METER, POINT OF CARE NESTOR 08/02/2024 7:57 AM EDT BASIC METABOLIC PANEL Routine 08/02/2024 6:53 AM EDT CBC Routine 08/02/2024 6:53 AM EDT GLUCOSE METER, POINT OF CARE NESTOR 08/01/2024 9:28 PM EDT GLUCOSE METER, POINT OF CARE NESTOR 08/01/2024 4:57 PM EDT GLUCOSE METER, POINT OF CARE NESTOR 08/01/2024 11:55 AM EDT DIGOXIN LEVEL Routine 08/01/2024 10:07 AM EDT GLUCOSE METER, POINT OF CARE NESTOR 08/01/2024 7:55 AM EDT BASIC METABOLIC PANEL Routine 08/01/2024 6:50 AM EDT CBC Routine 08/01/2024 6:50 AM EDT MAGNESIUM Routine 08/01/2024 6:50 AM EDT EXTRA LAVENDER TOP Routine 07/31/2024 10 :22 PM EDT EXTRA TUBES Routine 07/31/2024 10:22 PM EDT TROPONIN T, HIGH SENSITIVITY Routine 07/31/2024 10:22 PM EDT GLUCOSE METER, POINT OF CARE NESTOR 07/31/2024 9:28 PM EDT HC ECG TRACING ONLY Routine 07/31/2024 8 :19 PM EDT Tachycardia HC ECG TRACING ONLY STAT 07/31/2024 6 :45 PM EDT Screening for cardiovascular condition GLUCOSE METER, POINT OF CARE NESTOR 07/31/2024 4:51 PM EDT GLUCOSE METER, POINT OF CARE NESTOR 07/31/2024 11:31 AM EDT GLUCOSE METER, POINT OF CARE NESTOR 07/31/2024 7:57 AM EDT BASIC METABOLIC PANEL Routine 07/31/2024 6:55 AM EDT CBC Routine 07/31/2024 6:55 AM EDT GLUCOSE METER, POINT OF CARE NESTOR 07/30/2024 9:21 PM EDT XR CHEST 1 VIEW Routine 07/30/2024 7:22 PM EDT Cardiomegaly Other specified symptoms and signs involving the circulatory and respiratory systems SOB (shortness of breath) Wheezing GLUCOSE METER, POINT OF CARE NESTOR 07/30/2024 4:47 PM EDT ECHO, COMPLETE (2D), TRANS-THORACIC Routine 07/30/2024 12:16 PM EDT Cardiac arrhythmia, unspecified GLUCOSE METER, POINT OF CARE NESTOR 07/30/2024 10:04 AM EDT LACTATE,WHOLE BLOOD STAT 07/30/2024 9 :20 AM EDT HC ECG TRACING ONLY STAT 07/30/2024 8 :08 AM EDT SOB (shortness of breath) CULTURE, BLOOD STAT 07/30/2024 6:52 AM EDT CULTURE, BLOOD STAT 07/30/2024 6:46 AM EDT TROPONIN T, HIGH SENSITIVITY STAT 07/30/2024 6:42 AM EDT XR CHEST 1 VIEW STAT 07/30/2024 5:34 AM EDT Weakness LACTATE, WHOLE BLOOD WITH REFLEX IF ABNORMAL STAT 07/30/2024 5:17 AM EDT EXTRA GOLD TOP Routine 07/30/2024 5:17 AM EDT EXTRA TUBES Routine 07/30/2024 5:17 AM EDT DIFFERENTIAL, AUTOMATED STAT 07/30/2024 5:17 AM EDT TROPONIN T, HIGH SENSITIVITY STAT 07/30/2024 5:17 AM EDT RESPIRATORY PATHOGEN PANEL, PCR STAT 07/30/2024 5:17 AM EDT BNP (NT-PROBNP) STAT 07/30/2024 5:17 AM EDT COMPREHENSIVE METABOLIC PANEL STAT 07/30/2024 5:17 AM EDT CBC STAT 07/30/2024 5:17 AM EDT PT INR STAT 07/30/2024 5:17 AM EDT LIPASE STAT 07/30/2024 5:17 AM EDT CBC STAT 07/30/2024 5:17 AM EDT documented in this encounter Results * (ABNORMAL) GLUCOSE METER, POINT OF CARE (08/02/2024 11:36 AM EDT) GLUCOSE - POCT 144(H) 70 - 120 mg/dL 08/02/2024 11:41 AM EDT LABORATORY [facility] Blood Whole blood specimen / Unknown 08/02/2024 11:36 AM EDT 08/02/2024 11:40 AM EDT Diego Guan DO LAB POINT OF CARE TE ST DOCKED DEVICE UNSOLICITED RESULTS Performing Organization Address City/[facility]/ZIP Co de Phone Number LABORATORY [address] [address] * (ABNORMAL) GLUCOSE METER, POINT OF CARE (08/02/2024 7:57 AM EDT) GLUCOSE - POCT 137(H) 70 - 120 mg/dL 08/02/2024 7:59 AM EDT LABORATORY [facility] Blood Whole blood specimen / Unknown 08/02/2024 7:57 AM EDT 08/02/2024 7:59 AM EDT Diego Gaun DO LAB POINT OF CARE TE ST DOCKED DEVICE UNSOLICITED RESULTS LABORATORY [address] [phone] * (ABNORMAL) CBC (08/02/2024 6:53 AM EDT) WBC 9.48 4.00 - 10.80 K/uL 08/02/2024 8:19 AM EDT LABORATORY [facility] RBC 4.16 4.50 - 5.25 M/uL 08/02/2024 8:19 AM EDT LABORATORY [facility] HGB 10.7(L) 14.0 - 16.8 g/dL 08/02/2024 8:19 AM EDT LABORATORY [facility] HCT 35.0(L) 40.0 - 48.4 % 08/02/2024 8:19 AM EDT LABORATORY [facility] MCV 84.1 82.0 - 99.5 fL 08/02/2024 8:19 AM EDT LABORATORY [facility] MCH 25.7 27.0 - 34.0 pg 08/02/2024 8:19 AM EDT LABORATORY [facility] MCHC 30.6 32.0 - 36.0 g/dL 08/02/2024 8:19 AM EDT LABORATORY [facility] RDW 18.1 11.5 - 15.5 % 08/02/2024 8:19 AM EDT LABORATORY [facility] PLT 180 140 - 400 K/uL 08/02/2024 8:19 AM EDT LABORATORY [facility] MPV 12.7 6.6 - 11.1 fL 08/02/2024 8:19 AM EDT LABORATORY [facility] Blood Venous blood specimen / Unknown Venipuncture / Unknown 08/02/2024 6:53 AM EDT 08/02/2024 7:28 AM EDT Diego Guan DO LAB BLOOD ORDERABLES LABORATORY [address] [phone] * (ABNORMAL) BASIC METABOLIC PANEL (08/02/2024 6:53 AM EDT) BUN 13 6 - 20 mg/dL 08/02/2024 8:09 AM EDT LABORATORY [facility] CREATININE 0.9 0.6 - 1.2 mg/dL 08/02/2024 8:09 AM EDT LABORATORY [facility] EGFR 79 >=60 mL/min 08/02/2024 8:09 AM EDT LABORATORY [facility] Comment:eGFR is calculated b ased on the CKD-EPI 2020 equation. SODIUM 134(L) 135 - 146 mmol/L 08/02/2024 8:09 AM EDT LABORATORY [facility] POTASSIUM 3.8 3.5 - 5.1 mmol/L 08/02/2024 8:09 AM EDT LABORATORY [facility] CHLORIDE 99 98 - 107 mmol/L 08/02/2024 8:09 AM EDT LABORATORY SH CO2 26 22 - 32 mmol/L 08/02/2024 8:09 AM EDT LABORATORY SH ANION GAP 9 7 - 15 mmol/L 08/02/2024 8:09 AM EDT LABORATORY [facility] GLUCOSE 156(H) 70 - 120 mg/dL 08/02/2024 8:09 AM EDT LABORATORY [facility] CALCIUM 8.9 8.4 - 10.2 mg/dL 08/02/2024 8:09 AM EDT LABORATORY [facility] Blood Venous blood specimen / Unknown Venipuncture / Unknown 08/02/2024 6:53 AM EDT 08/02/2024 7:28 AM EDT Diego Guan DO LAB BLOOD ORDERABLES Performing Organization Address City/[facility]/ZIP Co de Phone Number LABORATORY [address] [address] * (ABNORMAL) GLUCOSE METER, POINT OF CARE (08/01/2024 9:28 PM EDT) GLUCOSE - POCT 160(H) 70 - 120 mg/dL 08/01/2024 9:35 PM EDT LABORATORY [facility] Blood Whole blood specimen / Unknown 08/01/2024 9:28 PM EDT 08/01/2024 9:35 PM EDT Diego Guan DO LAB POINT OF CARE TE ST DOCKED DEVICE UNSOLICITED RESULTS LABORATORY [address] [phone] * (ABNORMAL) GLUCOSE METER, POINT OF CARE (08/01/2024 4:57 PM EDT) GLUCOSE - POCT 138(H) 70 - 120 mg/dL 08/01/2024 5:02 PM EDT LABORATORY [facility] Blood Whole blood specimen / Unknown 08/01/2024 4:57 PM EDT 08/01/2024 5:02 PM EDT Diego Guan DO LAB POINT OF CARE TE ST DOCKED DEVICE UNSOLICITED RESULTS Performing Organization Address City/[facility]/ZIP Co de Phone Number LABORATORY [address] [address] * (ABNORMAL) GLUCOSE METER, POINT OF CARE (08/01/2024 11:55 AM EDT) GLUCOSE - POCT 175(H) 70 - 120 mg/dL 08/01/2024 12:05 PM EDT LABORATORY [facility] Blood Whole blood specimen / Unknown 08/01/2024 11:55 AM EDT 08/01/2024 12:05 PM EDT Diego Guan DO LAB POINT OF CARE TE ST DOCKED DEVICE UNSOLICITED RESULTS Performing Organization Address [facility] de Phone Number LABORATORY [address] [phone] * (ABNORMAL) DIGOXIN LEVEL (08/01/2024 10:07 AM EDT) [facility] Digoxin Level <0.4(L) 0.5 - 1.1 ng/mL 08/01/2024 5:27 PM EDT LABORATORY [facility] Blood Venous blood specimen / Unknown Venipuncture / Unknown 08/01/2024 10:07 AM EDT 08/01/2024 10:37 AM EDT Narrative LABORATORY [facility] - 08/01/2024 5:27 PM EDT Recommended trough therapeutic ranges: 0.5 to 0.8 for heart failure 0.5 to 1.1 for atrial fibrillation Candi Robbins MD LAB BLOOD ORDERABLES Performing Organization Address City/[facility]/ZIP Co de Phone Number LABORATORY [facility] [address] [place] [address] * (ABNORMAL) GLUCOSE METER, POINT OF CARE (08/01/2024 7:55 AM EDT) GLUCOSE - POCT 122(H) 70 - 120 mg/dL 08/01/2024 8:11 AM EDT LABORATORY [facility] Blood Whole blood specimen / Unknown 08/01/2024 7:55 AM EDT 08/01/2024 8:11 AM EDT Diego Guan DO LAB POINT OF CARE TE ST DOCKED DEVICE UNSOLICITED RESULTS LABORATORY [place] [id number] [place] [address] * (ABNORMAL) CBC (08/01/2024 6:50 AM EDT) [facility] WBC 8.13 4.00 - 10.80 K/uL 08/01/2024 7:18 AM EDT LABORATORY [facility] RBC 3.77 4.50 - 5.25 M/uL 08/01/2024 7:18 AM EDT LABORATORY [facility] HGB 9.5(L) 14.0 - 16.8 g/dL 08/01/2024 7:18 AM EDT LABORATORY [facility] HCT 31.8(L) 40.0 - 48.4 % 08/01/2024 7:18 AM EDT LABORATORY [facility] MCV 84.4 82.0 - 99.5 fL 08/01/2024 7:18 AM EDT LABORATORY [facility] MCH 25.2 27.0 - 34.0 pg 08/01/2024 7:18 AM EDT LABORATORY [facility] MCHC 29.9 32.0 - 36.0 g/dL 08/01/2024 7:18 AM EDT LABORATORY [facility] RDW 17.9 11.5 - 15.5 % 08/01/2024 7:18 AM EDT LABORATORY [facility] PLT 130(L) 140 - 400 K/uL 08/01/2024 7:18 AM EDT LABORATORY [facility] MPV 12.2 6.6 - 11.1 fL 08/01/2024 7:18 AM EDT LABORATORY [facility] Blood Venous blood specimen / Unknown Venipuncture / Unknown 08/01/2024 6:50 AM EDT 08/01/2024 7:12 AM EDT Diego Guan DO LAB BLOOD ORDERABLES LABORATORY [facility] [address] [place] [phone] * (ABNORMAL) BASIC METABOLIC PANEL (08/01/2024 6:50 AM EDT) BUN 16 6 - 20 mg/dL 08/01/2024 7:46 AM EDT LABORATORY [facility] CREATININE 1.0 0.6 - 1.2 mg/dL 08/01/2024 7:46 AM EDT LABORATORY [facility] EGFR 75 >=60 mL/min 08/01/2024 7:46 AM EDT LABORATORY [facility] Comment:eGFR is calculated b ased on the CKD-EPI 2020 equation. SODIUM 137 135 - 146 mmol/L 08/01/2024 7:46 AM EDT LABORATORY [facility] POTASSIUM 3.7 3.5 - 5.1 mmol/L 08/01/2024 7:46 AM EDT LABORATORY [facility] CHLORIDE 100 98 - 107 mmol/L 08/01/2024 7:46 AM EDT LABORATORY [facility] CO2 27 22 - 32 mmol/L 08/01/2024 7:46 AM EDT LABORATORY [facility] ANION GAP 10 7 - 15 mmol/L 08/01/2024 7:46 AM EDT LABORATORY [facility] GLUCOSE 143(H) 70 - 120 mg/dL 08/01/2024 7:46 AM EDT LABORATORY [facility] CALCIUM 8.6 8.4 - 10.2 mg/dL 08/01/2024 7:46 AM EDT LABORATORY [facility] Blood Venous blood specimen / Unknown Venipuncture / Unknown 08/01/2024 6:50 AM EDT 08/01/2024 7:12 AM EDT Diego Guan DO LAB BLOOD ORDERABLES LABORATORY [address] [phone] * MAGNESIUM (08/01/2024 6:50 AM EDT) Magnesium 2.0 1.5 - 2.6 mg/dL 08/01/2024 7:46 AM EDT LABORATORY [facility] Blood Venous blood specimen / Unknown Venipuncture / Unknown 08/01/2024 6:50 AM EDT 08/01/2024 7:12 AM EDT Candi Robbins MD LAB BLOOD ORDERABLES Performing Organization Address [facility] de Phone Number LABORATORY [address] [address] * EXTRA LAVENDER TOP (07/31/2024 10:22 PM EDT) Blood Venous blood specimen / Unknown 07/31/2024 10:22 PM EDT 07/31/2024 10:26 PM EDT Diego Guan DO LAB BLOOD ORDERABLES Performing Organization Address [facility] Co de Phone Number LABORATORY [address] [address] * (ABNORMAL) TROPONIN T, HIGH SENSITIVITY (07/31/2024 10:22 PM EDT) [facility] Troponin T, High Sensitivity 116(HH) <=22 ng/L 07/31/2024 10:47 PM EDT LABORATORY [facility] Blood Venous blood specimen / Unknown Venipuncture / Unknown 07/31/2024 10:22 PM EDT 07/31/2024 10:26 PM EDT Candi Robbins MD LAB BLOOD ORDERABLES Performing Organization Address [facility] de Phone Number LABORATORY [address] [address] * (ABNORMAL) GLUCOSE METER, POINT OF CARE (07/31/2024 9:28 PM EDT) [facility] GLUCOSE - POCT 165(H) 70 - 120 mg/dL 07/31/2024 9:32 PM EDT LABORATORY [facility] Blood Whole blood specimen / Unknown 07/31/2024 9:28 PM EDT 07/31/2024 9:32 PM EDT Diego Guan DO LAB POINT OF CARE TE ST DOCKED DEVICE UNSOLICITED RESULTS Performing Organization Address [facility] Co de Phone Number [place] [address] [place] [address] * EKG (07/31/2024 8:19 PM EDT) 07/31/2024 8:19 PM EDT Narrative Procedure Note Jonathan Ward MD - 07/31/2024 8:19 PM EDT REASON FOR STUDY: TACHYCARDIA CONCLUSIONS: Atrial fibrillation with rapid ventricular response Right bundle branch block Left posterior fascicular block Bifascicular block Cannot rule out Inferior infarct (cited on or before 30-Jul-2024) Abnormal ECG When compared with ECG of 31-Jul-2024 18:45, No significant change was found Ventricular Rate: 142 Atrial Rate: 153 QRS Duration: 138 QT/QTc: 338/519 ms P-R-T Webster: 0 : 128 : -25 degrees Candi Robbins MD EKG Performing Organization Address [facility] de Phone Number [facility] * EKG (07/31/2024 6:45 PM EDT) 07/31/2024 6:45 PM EDT Narrative Procedure Note Jonathan Ward MD - 07/31/2024 6:45 PM EDT REASON FOR STUDY: SVT CONCLUSIONS: Atrial fibrillation with rapid ventricular response Right bundle branch block Left posterior fascicular block Bifascicular block Cannot rule out Inferior infarct (cited on or before 30-Jul-2024) When compared with ECG of 30-Jul-2024 08:08, Atrial fibrillation has replaced Sinus rhythm Vent. rate has increased by 81 bpm Left posterior fascicular block is now Present ST now depressed in Anterior leads Ventricular Rate: 150 Atrial Rate: 138 QRS Duration: 130 QT/QTc: 308/486 ms P-R-T Webster: 0 : 135 : -25 degrees Gomez Farrar MD EKG Performing Organization Address [facility] Co de Phone Number [facility] * (ABNORMAL) GLUCOSE METER, POINT OF CARE (07/31/2024 4:51 PM EDT) GLUCOSE - POCT 132(H) 70 - 120 mg/dL 07/31/2024 4:54 PM EDT LABORATORY [facility] Blood Whole blood specimen / Unknown 07/31/2024 4:51 PM EDT 07/31/2024 4:54 PM EDT Diego Guan DO LAB POINT OF CARE TE ST DOCKED DEVICE UNSOLICITED RESULTS Performing Organization Address [facility] de Phone Number LABORATORY [address] [phone] * (ABNORMAL) GLUCOSE METER, POINT OF CARE (07/31/2024 11:31 AM EDT) GLUCOSE - POCT 140(H) 70 - 120 mg/dL 07/31/2024 11:59 AM EDT LABORATORY [facility] Blood Whole blood specimen / Unknown 07/31/2024 11:31 AM EDT 07/31/2024 11:59 AM EDT Diego Guan DO LAB POINT OF CARE TE ST DOCKED DEVICE UNSOLICITED RESULTS Performing Organization Address [facility] de Phone Number LABORATORY [address] [phone] * (ABNORMAL) GLUCOSE METER, POINT OF CARE (07/31/2024 7:57 AM EDT) GLUCOSE - POCT 152(H) 70 - 120 mg/dL 07/31/2024 8:04 AM EDT LABORATORY [facility] Blood Whole blood specimen / Unknown 07/31/2024 7:57 AM EDT 07/31/2024 8:04 AM EDT Diego Guan DO LAB POINT OF CARE TE ST DOCKED DEVICE UNSOLICITED RESULTS Performing Organization Address [facility] Co de Phone Number LABORATORY [facility] [address] [place] [address] * (ABNORMAL) CBC (07/31/2024 6:55 AM EDT) WBC 9.70 4.00 - 10.80 K/uL 07/31/2024 7:15 AM EDT LABORATORY [facility] RBC 3.68 4.50 - 5.25 M/uL 07/31/2024 7:15 AM EDT LABORATORY [facility] HGB 9.5(L) 14.0 - 16.8 g/dL 07/31/2024 7:15 AM EDT LABORATORY [facility] HCT 30.7(L) 40.0 - 48.4 % 07/31/2024 7:15 AM EDT LABORATORY [facility] MCV 83.4 82.0 - 99.5 fL 07/31/2024 7:15 AM EDT LABORATORY [facility] MCH 25.8 27.0 - 34.0 pg 07/31/2024 7:15 AM EDT LABORATORY [facility] MCHC 30.9 32.0 - 36.0 g/dL 07/31/2024 7:15 AM EDT LABORATORY [facility] RDW 17.6 11.5 - 15.5 % 07/31/2024 7:15 AM EDT LABORATORY [facility] PLT 132(L) 140 - 400 K/uL 07/31/2024 7:15 AM EDT LABORATORY [facility] MPV 11.9 6.6 - 11.1 fL 07/31/2024 7:15 AM EDT LABORATORY [facility] Blood Venous blood specimen / Unknown Venipuncture / Unknown 07/31/2024 6:55 AM EDT 07/31/2024 7:11 AM EDT Diego Guan DO LAB BLOOD ORDERABLES LABORATORY [facility] [address] [place] [address] * (ABNORMAL) BASIC METABOLIC PANEL (07/31/2024 6:55 AM EDT) BUN 15 6 - 20 mg/dL 07/31/2024 8:01 AM EDT LABORATORY [facility] CREATININE 1.0 0.6 - 1.2 mg/dL 07/31/2024 8:01 AM EDT LABORATORY [facility] EGFR 76 >=60 mL/min 07/31/2024 8:01 AM EDT LABORATORY [facility] Comment:eGFR is calculated b ased on the CKD-EPI 2020 equation. SODIUM 133(L) 135 - 146 mmol/L 07/31/2024 8:01 AM EDT LABORATORY [facility] POTASSIUM 3.9 3.5 - 5.1 mmol/L 07/31/2024 8:01 AM EDT LABORATORY [facility] CHLORIDE 97(L) 98 - 107 mmol/L 07/31/2024 8:01 AM EDT LABORATORY SH CO2 26 22 - 32 mmol/L 07/31/2024 8:01 AM EDT LABORATORY [facility] ANION GAP 10 7 - 15 mmol/L 07/31/2024 8:01 AM EDT LABORATORY [facility] GLUCOSE 158(H) 70 - 120 mg/dL 07/31/2024 8:01 AM EDT LABORATORY [facility] CALCIUM 8.4 8.4 - 10.2 mg/dL 07/31/2024 8:01 AM EDT LABORATORY [facility] Blood Venous blood specimen / Unknown Venipuncture / Unknown 07/31/2024 6:55 AM EDT 07/31/2024 7:11 AM EDT Diego Guan DO LAB BLOOD ORDERABLES LABORATORY [place] [address] [place] [address] * (ABNORMAL) GLUCOSE METER, POINT OF CARE (07/30/2024 9:21 PM EDT) [facility] GLUCOSE - POCT 127(H) 70 - 120 mg/dL 07/30/2024 9:25 PM EDT LAB[facility]ATORY [facility] Blood Whole blood specimen / Unknown 07/30/2024 9:21 PM EDT 07/30/2024 9:25 PM EDT Diego Guan DO LAB POINT OF CARE TE ST DOCKED DEVICE UNSOLICITED RESULTS [facility]AT[facility] [place] [id number] [place] [address] * XR CHEST 1 VIEW (07/30/2024 7:22 PM EDT) Anatomical Region Laterality Modality Chest Computed Radiogr aphy 07/30/2024 7:22 PM EDT Impressions 07/30/2024 7:58 PM EDT IMPRESSION: Cardiac enlargement with moderate vascular congestion. THIS DOCUMENT HAS BEEN ELECTRONICALLY SIGNED BY SONY GUTIERREZ MD Narrative 07/30/2024 7:58 PM EDT PROCEDURE INFORMATION: Exam: XR Chest Exam date and time: 07/30/2024 7:22 PM Age: 88 years old Clinical indication: Shortness of breath; Additional info: Wheezing SOB TECHNIQUE: Imaging protocol: Radiologic exam of the chest. Views: 1 view. COMPARISON: DX XR CHEST 1 VIEW 07/30/2024 5:34 AM FINDINGS: Lungs: Moderate vascular congestion. Pleural spaces: No pleural effusion. No pneumothorax. Heart/Mediastinum: Mild cardiomegaly. Bones/joints: Degenerative changes within the thoracic spine. Procedure Note Sony Gutierrez MD - 07/30/2024 PROCEDURE INFORMATION: Exam: XR Chest Exam date and time: 07/30/2024 7:22 PM Age: 88 years old Clinical indication: Shortness of breath; Additional info: Wheezing SOB TECHNIQUE: Imaging protocol: Radiologic exam of the chest. Views: 1 view. COMPARISON: DX XR CHEST 1 VIEW 07/30/2024 5:34 AM FINDINGS: Lungs: Moderate vascular congestion. Pleural spaces: No pleural effusion. No pneumothorax. Heart/Mediastinum: Mild cardiomegaly. Bones/joints: Degenerative changes within the thoracic spine. IMPRESSION IMPRESSION: Cardiac enlargement with moderate vascular congestion. THIS DOCUMENT HAS BEEN ELECTRONICALLY SIGNED BY SONY GUTIERREZ MD Diego Guan DO RADIOLOGY (RAD GENER AL) * (ABNORMAL) GLUCOSE METER, POINT OF CARE (07/30/2024 4:47 PM EDT) GLUCOSE - POCT 129(H) 70 - 120 mg/dL 07/30/2024 4:51 PM EDT LABORATORY [facility] Blood Whole blood specimen / Unknown 07/30/2024 4:47 PM EDT 07/30/2024 4:51 PM EDT Diego Guan DO LAB POINT OF CARE TE ST DOCKED DEVICE UNSOLICITED RESULTS Performing Organization Address [facility] Co de Phone Number LABORATORY [address] [address] * ECHO, COMPLETE (2D), TRANS-THORACIC (07/30/2024 12:16 PM EDT) [facility] LEFT VENTRICULAR EJECTION FRACTION 65 % [facility] CARDIOLOGY 07/30/2024 11:3 4 AM EDT Diego Guan DO ECHOCARDIOLOGY Performing Organization Address [facility] Co de Phone Number [facility] CARDIOLOGY * (ABNORMAL) GLUCOSE METER, POINT OF CARE (07/30/2024 10:04 AM EDT) [facility] GLUCOSE - POCT 166(H) 70 - 120 mg/dL 07/30/2024 10:07 AM EDT LABORATORY [facility] Blood Whole blood specimen / Unknown 07/30/2024 10:04 AM EDT 07/30/2024 10:07 AM EDT Diego Guan DO LAB POINT OF CARE TE ST DOCKED DEVICE UNSOLICITED RESULTS Performing Organization Address [facility] Co de Phone Number LABORATORY [address] [phone] * LACTATE,WHOLE BLOOD (07/30/2024 9:20 AM EDT) [facility] Lactate, Whole Blood 1.9 0.4 - 2.0 mmol/L 07/30/2024 9:25 AM EDT LABORATORY [facility] Blood Venous blood specimen / Unknown Venipuncture / Unknown 07/30/2024 9:20 AM EDT 07/30/2024 9:23 AM EDT Gomez Farrar MD LAB BLOOD ORDERA BLES Performing Organization Address [facility] de Phone Number LABORATORY [facility] [address] [place] [address] * EKG (07/30/2024 8:08 AM EDT) 07/30/2024 8:0 8 AM EDT Narrative Procedure Note Adria Henry MD - 07/30/2024 8:08 AM EDT REASON FOR STUDY: RHYTHM CHANGE CONCLUSIONS: Sinus rhythm with occasional Premature ventricular complexes Right bundle branch block Cannot rule out Inferior infarct , age undetermined Abnormal ECG When compared with ECG of 30-Jul-2024 05:07, Sinus rhythm has replaced Atrial fibrillation Vent. rate has decreased by 62 bpm The axis Shifted left Ventricular Rate: 69 Atrial Rate: 69 TN Interval: 160 QRS Duration: 130 QT/QTc: 440/471 ms P-R-T Webster: 31 : 52 : -3 degrees Gomez Farrar MD EKG Performing Organization Address [facility] de Phone Number [facility] CARDIOLOGY * (ABNORMAL) TROPONIN T, HIGH SENSITIVITY (07/30/2024 6:42 AM EDT) [facility] Troponin T, High Sensitivity 174(HH) <=22 ng/L 07/30/2024 7:19 AM EDT LABORATORY [facility] Blood Venous blood specimen / Unknown Venipuncture / Unknown 07/30/2024 6:42 AM EDT 07/30/2024 6:50 AM EDT Gomez Farrar MD LAB BLOOD ORDERA BLES Performing Organization Address [facility] Co de Phone Number LABORATORY [facility] [address] [place] [address] * XR CHEST 1 VIEW (07/30/2024 5:34 AM EDT) Anatomical Region Laterality Modality Chest Computed Radiogr aphy 07/30/2024 5:34 AM EDT Impressions 07/30/2024 5:47 AM EDT IMPRESSION: No acute abnormality. THIS DOCUMENT HAS BEEN ELECTRONICALLY SIGNED BY BRIANA BUTLER MD Narrative 07/30/2024 5:47 AM EDT PROCEDURE INFORMATION: Exam: XR Chest Exam date and time: 07/30/2024 5:34 AM Age: 88 years old Clinical indication: Other: Weakness; Patient HX: HX cardiac stents; Additional info: Cough, SOB TECHNIQUE: Imaging protocol: Radiologic exam of the chest. Views: 1 view. COMPARISON: DX XR CHEST 1 VIEW 23/12/2023 06:23 FINDINGS: Lungs: Unremarkable. No consolidation. Pleural spaces: Unremarkable. No pleural effusion. No pneumothorax. Heart/Mediastinum: Cardiomegaly. Vasculature: Calcified aortic arch. Bones/joints: Unremarkable. Procedure Note Briana Pond MD - 07/30/2024 PROCEDURE INFORMATION: Exam: XR Chest Exam date and time: 07/30/2024 5:34 AM Age: 88 years old Clinical indication: Other: Weakness; Patient HX: HX cardiac stents;Additional info: Cough, SOB TECHNIQUE: Imaging protocol: Radiologic exam of the chest. Views: 1 view. COMPARISON: DX XR CHEST 1 VIEW 23/12/2023 06:23 FINDINGS: Lungs: Unremarkable. No consolidation. Pleural spaces: Unremarkable. No pleural effusion. No pneumothorax. Heart/Mediastinum: Cardiomegaly. Vasculature: Calcified aortic arch. Bones/joints: Unremarkable. IMPRESSION IMPRESSION: No acute abnormality. THIS DOCUMENT HAS BEEN ELECTRONICALLY SIGNED BY BRIANA BUTLER MD Gomez Farrar MD RADIOLOGY (RAD G ENERAL) * EXTRA GOLD TOP (07/30/2024 5:17 AM EDT) Blood Venous blood specimen / Unknown 07/30/2024 5:17 AM EDT 07/30/2024 5:22 AM EDT Gomez Farrar MD LAB BLOOD ORDERA BLES LABORATORY [address] [phone] * (ABNORMAL) DIFFERENTIAL, AUTOMATED (07/30/2024 5:17 AM EDT) WBC 14.22(H) 4.00 - 10.80 K/uL 07/30/2024 5:27 AM EDT LABORATORY [facility] Neutrophils % 68.8 40.0 - 75.0 % 07/30/2024 5:27 AM EDT LAB[facility]ATORY [facility] Lymphocytes % 16.4(L) 18.0 - 42.0 % 07/30/2024 5:27 AM EDT LABORATORY [facility] Monocytes % 14.3(H) 1.0 - 11.0 % 07/30/2024 5:27 AM EDT LABORATORY [facility] Eosinophils % 0.4 0.0 - 6.0 % 07/30/2024 5:27 AM EDT LAB[facility]ATORY [facility] Basophils % 0.1 0.0 - 2.0 % 07/30/2024 5:27 AM EDT LAB[facility]ATORY [facility] Absolute Neutrophils 9.80(H) 1.80 - 7.70 K/uL 07/30/2024 5:27 AM EDT LABORATORY [facility] Absolute Lymphocytes 2.33 1.00 - 4.80 K/ul 07/30/2024 5:27 AM EDT LABORATORY [facility] Absolute Monocytes 2.03(H) 0.00 - 1.10 K/uL 07/30/2024 5:27 AM EDT LABORATORY [facility] Absolute Eosinophils 0.05 0.00 - 0.70 K/uL 07/30/2024 5:27 AM EDT LABORATORY [facility] Absolute Basophils 0.01 0.00 - 0.20 K/uL 07/30/2024 5:27 AM EDT LABORATORY [facility] Blood Venous blood specimen / Unknown Venipuncture / Unknown 07/30/2024 5:17 AM EDT 07/30/2024 5:21 AM EDT Gomez Farrar MD LAB BLOOD ORDERA BLES LABORATORY [address] [phone] * (ABNORMAL) CBC (07/30/2024 5:17 AM EDT) WBC 14.22(H) 4.00 - 10.80 K/uL 07/30/2024 5:27 AM EDT LABORATORY [facility] RBC 4.23 4.50 - 5.25 M/uL 07/30/2024 5:27 AM EDT LABORATORY [facility] HGB 10.7(L) 14.0 - 16.8 g/dL 07/30/2024 5:27 AM EDT LABORATORY [facility] HCT 35.4(L) 40.0 - 48.4 % 07/30/2024 5:27 AM EDT LABORATORY [facility] MCV 83.7 82.0 - 99.5 fL 07/30/2024 5:27 AM EDT LABORATORY [facility] MCH 25.3 27.0 - 34.0 pg 07/30/2024 5:27 AM EDT LABORATORY [facility] MCHC 30.2 32.0 - 36.0 g/dL 07/30/2024 5:27 AM EDT LABORATORY [facility] RDW 17.7 11.5 - 15.5 % 07/30/2024 5:27 AM EDT LABORATORY [facility] PLT 181 140 - 400 K/uL 07/30/2024 5:27 AM EDT LABORATORY [facility] MPV 12.7 6.6 - 11.1 fL 07/30/2024 5:27 AM EDT LAB[facility]ATORY [facility] Blood Venous blood specimen / Unknown Venipuncture / Unknown 07/30/2024 5:17 AM EDT 07/30/2024 5:21 AM EDT Gomez Farrar MD LAB BLOOD ORDERA BLES LABORATORY [address] [phone] * PT INR (07/30/2024 5:17 AM EDT) Pathologist [facility] Prothrombin Time 14.7 11.6 - 15.2 seconds 07/30/2024 5:40 AM EDT LABORATORY [facility] INR 1.2 0.8 - 1.2 07/30/2024 5:40 AM EDT LABORATORY [facility] Blood Venous blood specimen / Unknown Venipuncture / Unknown 07/30/2024 5:17 AM EDT 07/30/2024 5:21 AM EDT Narrative LABORATORY [facility] - 07/30/2024 5:40 AM EDT Warfarin Therapy INR: 2.0-3.0 conventional anticoagulation INR: 2.5-3.5 high intensity anticoagulation Gomez Farrar MD LAB BLOOD ORDERA BLES Performing Organization Address City/[facility]/ZIP Co de Phone Number LABORATORY [address] [phone] * LIPASE (07/30/2024 5:17 AM EDT) [facility] Lipase 17 13 - 60 U/L 07/30/2024 5:50 AM EDT LABORATORY [facility] Blood Venous blood specimen / Unknown Venipuncture / Unknown 07/30/2024 5:17 AM EDT 07/30/2024 5:21 AM EDT Gomez Farrar MD LAB BLOOD ORDERA BLES Performing Organization Address [facility] de Phone Number LABORATORY [address] [phone] * (ABNORMAL) LACTATE, WHOLE BLOOD WITH REFLEX IF ABNORMAL (07/30/2024 5:17 AM EDT) [facility] Lactate, Whole Blood 2.1(H) 0.4 - 2.0 mmol/L 07/30/2024 5:29 AM EDT LABORATORY [facility] Blood Venous blood specimen / Unknown Venipuncture / Unknown 07/30/2024 5:17 AM EDT 07/30/2024 5:21 AM EDT Gomez Farrar MD LAB BLOOD ORDERA BLES Performing Organization Address [facility]/ZIP Co de Phone Number LABORATORY [address] [phone] * (ABNORMAL) TROPONIN T, HIGH SENSITIVITY (07/30/2024 5:17 AM EDT) [facility] Troponin T, High Sensitivity 183(HH) <=22 ng/L 07/30/2024 5:55 AM EDT LABORATORY [facility] Blood Venous blood specimen / Unknown Venipuncture / Unknown 07/30/2024 5:17 AM EDT 07/30/2024 5:22 AM EDT Gomez Farrar MD LAB BLOOD ORDERA BLES Performing Organization Address [facility]/ZIP Co de Phone Number LABORATORY [address] [phone] * (ABNORMAL) BNP, NT-PRO (07/30/2024 5:17 AM EDT) BNP, NT-Pro 2,848(H) <300 pg/mL 07/30/2024 5:55 AM EDT LABORATORY [facility] Blood Venous blood specimen / Unknown Venipuncture / Unknown 07/30/2024 5:17 AM EDT 07/30/2024 5:21 AM EDT Narrative LABORATORY [facility] - 07/30/2024 5:55 AM EDT Exclude Heart Failure: <300 pg/mL Diagnose Heart Failure: Age <50 yr: >450 pg/mL 50-75 yr: >900 pg/mL >75 yr: >1800 pg/mL GFR is 30-59 mL/min: >1200 pg/mL or Age-adjusted values GFR <30 mL/min: do not use, not reliable Prognostic threshold: 1000 pg/mL Gomez Farrar MD LAB BLOOD ORDERA BLES Performing Organization Address [facility] Co de Phone Number LABORATORY [address] [phone] * (ABNORMAL) COMPREHENSIVE METABOLIC PANEL (07/30/2024 5:17 AM EDT) BUN 23(H) 6 - 20 mg/dL 07/30/2024 5:50 AM EDT LABORATORY [facility] CREATININE 0.9 0.6 - 1.2 mg/dL 07/30/2024 5:50 AM EDT LAB[facility]ATORY [facility] EGFR 79 >=60 mL/min 07/30/2024 5:50 AM EDT LAB[facility]ATORY [facility] Comment:eGFR is calculated b ased on the CKD-EPI 2020 equation. SODIUM 139 135 - 146 mmol/L 07/30/2024 5:50 AM EDT LABORATORY [facility] POTASSIUM 4.5 3.5 - 5.1 mmol/L 07/30/2024 5:50 AM EDT LAB[facility]ATORY [facility] CHLORIDE 99 98 - 107 mmol/L 07/30/2024 5:50 AM EDT LAB[facility]ATORY [facility] CO2 26 22 - 32 mmol/L 07/30/2024 5:50 AM EDT LAB[facility]ATORY [facility] ANION GAP 14 7 - 15 mmol/L 07/30/2024 5:50 AM EDT LAB[facility]ATORY [facility] GLUCOSE 181(H) 70 - 120 mg/dL 07/30/2024 5:50 AM EDT LAB[facility]ATORY [facility] Albumin 4.0 3.8 - 5.0 g/dL 07/30/2024 5:50 AM EDT LAB[facility]ATORY [facility] AST 34 10 - 50 U/L 07/30/2024 5:50 AM EDT LAB[facility]ATORY [facility] Alkaline Phosphatase 83 35 - 130 U/L 07/30/2024 5:50 AM EDT LAB[facility]ATORY [facility] Bilirubin, Total 0.7 <=1.2 mg/dL 07/30/2024 5:50 AM EDT LAB[facility]ATORY [facility] CALCIUM 9.3 8.4 - 10.2 mg/dL 07/30/2024 5:50 AM EDT LAB[facility]ATORY [facility] Protein 7.1 6.0 - 8.3 g/dL 07/30/2024 5:50 AM EDT LAB[facility]ATORY [facility] ALT 53(H) 10 - 50 U/L 07/30/2024 5:50 AM EDT LAB[facility]ATORY [facility] Blood Venous blood specimen / Unknown Venipuncture / Unknown 07/30/2024 5:17 AM EDT 07/30/2024 5:21 AM EDT Gomez Farrar MD LAB BLOOD ORDERA BLES LABORATORY [place] [id number] [place] [address] * RESPIRATORY PATHOGEN PANEL, PCR (07/30/2024 5:17 AM EDT) Pathologist [facility] Adenovirus by PCR Negative Negative 024 6:13 AM EDT LABORATORY [facility] Coronavirus 229E by PCR Negative Negative 07/30/2024 6:13 AM EDT LAB[facility]ATORY [facility] Coronavirus HKU1 by PCR Negative Negative 07/30/2024 6:13 AM EDT LAB[facility]ATORY [facility] Coronavirus NL63 by PCR Negative Negative 07/30/2024 6:13 AM EDT LAB[facility]ATORY [facility] Coronavirus OC43 by PCR Negative Negative 07/30/2024 6:13 AM EDT LAB[facility]ATORY [facility] Coronavirus SARS-CoV-2 by PCR Negative Negative 07/30/2024 6:13 AM EDT LAB[facility]ATORY [facility] Human Metapneumovirus by PCR Negative Negative 07/30/2024 6:13 AM EDT LAB[facility]ATORY [facility] Rhinovirus/Enterovi fermin by PCR Negative Negative 07/30/2024 6:13 AM EDT LAB[facility]ATORY [facility] Influenza A Virus by PCR Negative Negative 07/30/2024 6:13 AM EDT LAB[facility]ATORY [facility] Influenza B Virus by PCR Negative Negative 07/30/2024 6:13 AM EDT LAB[facility]ORY [facility] Parainfluenza Virus 1 by PCR Negative Negative 07/30/2024 6:13 AM EDT LAB[facility]ATORY [facility] Parainfluenza Virus 2 by PCR Negative Negative 07/30/2024 6:13 AM EDT LAB[facility]ATORY [facility] Parainfluenza Virus 3 by PCR Negative Negative 07/30/2024 6:13 AM EDT LAB[facility]ATORY [facility] Parainfluenza Virus 4 by PCR Negative Negative 07/30/2024 6:13 AM EDT LAB[facility]ATORY [facility] Respiratory Syncytial Virus by PCR Negative Negative 07/30/2024 6:13 AM EDT LAB[facility]ATORY [facility] Bordetella pertussis by PCR Negative Negative 07/30/2024 6:13 AM EDT LAB[facility]ATORY [facility] Chlamydia pneumoniae by PCR Negative Negative 07/30/2024 6:13 AM EDT LAB[facility]ATORY [facility] Mycoplasma pneumoniae by PCR Negative Negative 07/30/2024 6:13 AM EDT LAB[facility]ATORY [facility] Bordetella parapertussis by PCR Negative Negative 07/30/2024 6:13 AM EDT LAB[facility]ATORY [facility] Comment: The primers that detect Rhinovirus may cross react with some Enterorviruses. The validation of bronchial specimens, tracheal aspirates, and throats for this assay was developed and performance characteristics determined by [employer]. The validation of alternate specimen types has not been cleared or approved by the U.S. Food and Drug Administration (FDA). It has been determined that such clearance or approval is not necessary. Upper Respiratory Mid-turbinate nasal swab / Unknown 07/30/2024 5:17 AM EDT 07/30/2024 5:23 AM EDT Gomez Farrar MD LAB MICRO - GENE RAL ORDERABLES LABORATORY [address] [phone] documented in this encounter Visit Diagnoses Diagnosis Atrial fibrillation with RVR (HCC)- Primary Atrial fibrillation Screening for cardiovascular condition Screening for other and unspecified cardiovascular conditions SOB (shortness of breath) Shortness of breath Sepsis, due to unspecified organism, unspecified whether acute organ dysfunction present (HCC) Atrial fibrillation with RVR (HCC) Atrial fibrillation Peripheral vascular disease (HCC) Peripheral vascular disease, unspecified Elevated troponin Other abnormal blood chemistry Heart failure, etiology unknown (HCC) Heart failure, unspecified Lactic acidosis Acidosis Chest pain Chest pain, unspecified Cardiac arrhythmia, unspecified Weakness Other malaise and fatigue Tachycardia Tachycardia, unspecified Cardiomegaly Other specified symptoms and signs involving the circulatory and respiratory systems Wheezing Cellulitis of left lower extremity Cellulitis and abscess of leg, except foot Type 2 myocardial infarction (HCC) Hyperlipidemia associated with type 2 diabetes mellitus (HCC) Paroxysmal atrial fibrillation (HCC) Atrial fibrillation Type 2 diabetes mellitus with diabetic neuropathy, without long-term current use of insulin (HCC) S/P right coronary artery (RCA) stent placement Chronic kidney disease, stage 3a (HCC) PVD (peripheral vascular disease) (HCC) Peripheral vascular disease, unspecified Cellulitis of left lower extremity Cellulitis and abscess of leg, except foot Routine general medical examination at a health care facility- Primary Hyperlipidemia associated with type 2 diabetes mellitus (HCC) Type 2 diabetes mellitus with diabetic neuropathy, without long-term current use 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 Given 07/30/2024 5:35 AM EDT 650 mg Acetaminophen (Tylenol) tab 650 mg 650 mg, Oral, Q6H PRN Pain, Mild, Fever >38C(100.5F), Starting on Tue07/30/24 at 0814, Until Swapna 08/02/24 at 1759, Maximum of 4 grams (4000 mg) per day. Given 08/01/2024 12:17 PM EDT 650 mg Given 07/31/2024 8:44 PM EDT 650 mg Allopurinol (Zyloprim) tab 300 mg 300 mg, Oral, HS, First dose on Tue07/30/24 at 2200, Until Discontinued Given 08/01/2024 10:07 PM EDT 300 mg Given 07/31/2024 8:45 PM EDT 300 mg Given 07/30/2024 9:37 PM EDT 300 mg aspirin enteric coated tab 81 mg 81 mg, Oral, Daily(AM), First dose on Tue07/30/24 at 0900, Until Discontinued, This med should NOT be Crushed or Chewed Given 08/02/2024 8:51 AM EDT 81 mg Given 08/01/2024 7:53 AM EDT 81 mg Given 07/31/2024 8:09 AM EDT 81 mg atorvaSTATin (Lipitor) tab 40 mg 40 mg, Oral, Q1700, First dose on Tue07/30/24 at 1700, Until Discontinued Given 08/01/2024 5:21 PM EDT 40 mg Given 07/31/2024 5:33 PM EDT 40 mg Given 07/30/2024 5:51 PM EDT 40 mg Bisacodyl (Dulcolax) supp 10 mg 10 mg, Rectal, ONCE, On Tue08/01/24 at 0830, For 1 dose Given 08/01/2024 8:06 AM EDT 10 mg cefTRIAXone in dextrose (Rocephin) IVPB 2 g IV Piggyback, 2 g, Q24H, 5 doses, First dose on Tue07/30/24 at 1300, Last dose on Tue08/03/24 at 1300, Administer over 30 Minutes New Bag 08/02/2024 1:02 PM EDT 2 g 100 mL/hr New Bag 08/01/2024 1:20 PM EDT 2 g 100 mL/hr Restarted 07/31/2024 12:11 PM EDT 4 g/hr 100 mL/hr dextrose 50% inj 25 mL 25 mL, IV Push, PRN Hypoglycemia, Other, For blood glucose 54 - 69 mg/dL or 70 - 100 mg/dL with symptoms AND patient is unresponsive, NPO, OR unable to swallow, Starting on Tue07/30/24 at 0815, Until Sawpna 08/02/24 at 1759, Administer IV. Recheck blood glucose after 15 minutes. Notify provider. dextrose 50% inj 50 mL 50 mL, IV Push, PRN Hypoglycemia, Other, For blood glucose below 54 mg/dL AND patient unresponsive, NPO, OR unable to swallow, Starting on Tue07/30/24 at 0815, Until Swapna 08/02/24 at 1759, Administer IV. Recheck blood glucose in 15 minutes. Notify provider. Digoxin (Lanoxin) 0.25 MG/ML inj 250 mcg 250 mcg, IV Push, ONCE, On Tue07/31/24 at 2230, For 1 dose, NOTE CONC: 250 MCG/ML PROTECT FROM LIGHT Given 07/31/2024 10:13 PM EDT 250 mcg Docusate Sodium (Colace) cap 100 mg 100 mg, Oral, BID (.AM/PM), First dose on Tue07/31/24 at 1745, Until Discontinued, For oral administration ONLY, if route of administration is other than oral and alternative product must be ordered. Given 08/02/2024 8:51 AM EDT 100 mg Given 08/01/2024 10:07 PM EDT 100 mg Given 08/01/2024 7:53 AM EDT 100 mg Enoxaparin (Lovenox) inj 40 mg 40 mg, Subcutaneous, Daily(AM), First dose on Tue07/31/24 at 0900, Until Discontinued, If patient is on warfarin, inform provider if daily INR value is 2 or greater! Given 08/02/2024 8:54 AM EDT 40 mg Abdom en Left Lower Given 08/01/2024 7:58 AM EDT 40 mg Ar m Left Upper Given 07/31/2024 8:09 AM EDT 40 mg Ar m Right Upper Furosemide (Lasix) inj 40 mg 40 mg, IV Push, ONCE, On Tue07/30/24 at 1930, For 1 dose Given 07/30/2024 9:36 PM EDT 40 mg Furosemide (Lasix) tab 40 mg 40 mg, Oral, Daily(AM), First dose on Tue07/31/24 at 0900, Until Discontinued Given 08/02/2024 8:51 AM EDT 40 mg Given 08/01/2024 7:53 AM EDT 40 mg Given 07/31/2024 8:09 AM EDT 40 mg Gabapentin (Neurontin) cap 600 mg 600 mg, Oral, TID(AM/NOON/HS), First dose on Tue07/30/24 at 1200, Until Discontinued Given 08/02/2024 11:41 AM EDT 600 mg Given 08/02/2024 6:02 AM EDT 600 mg Given 08/01/2024 10:07 PM EDT 600 mg glucagon (Glucagen) inj 1 mg 1 mg, Intramuscular, PRN Hypoglycemia, Other, If patient is unresponsive, or NPO and has no IV access, Starting on Tue07/30/24 at 0815, Until [facility] 08/02/24 at 1759, NPO and no IV access with either 1) blood glucose less than 100 mg/dL and symptomatic OR 2) blood glucose less than 70 mg/dL and asymptomatic Glucose (Glutose 15) 40 % gel 15 g of glucose 15 g of glucose, Oral, PRN Hypoglycemia (low sugar), Other, For blood glucose 54 - 69 mg/dL or 70 - 100 mg/dL with symptoms AND patient alert WITH difficulty chewing/swallowing, Starting on Tue07/30/24 at 0815, Until Swapna 08/02/24 at 1759, Administer gel. Recheck blood glucose after 15 minutes. Notify provider. 37.5 gram tube = 15 grams glucose = 1 each Glucose (Glutose 15) 40 % gel 30 g of glucose 30 g of glucose, Oral, PRN Hypoglycemia (low sugar), Other, For blood glucose below 54 mg/dL AND patient alert WITH difficulty chewing/swallowing, Starting on Tue07/30/24 at 0815, Until Swapna 08/02/24 at 1759, Administer gel. Recheck blood glucose after 15 minutes. Notify provider. 37.5 gram tube = 15 grams glucose = 1 each glucose chew tab 16 g 16 g, Oral, PRN Hypoglycemia, Other, For blood glucose 54 - 69 mg/dL or 70 - 100 mg/dL with symptoms and patient alert without difficulty chewing/swallowing., Starting on Tue07/30/24 at 0815, Until Swapna 08/02/24 at 1759 HYDROmorphone (Dilaudid) inj 1 mg 1 mg, Intravenous, ONCE, On Tue07/30/24 at 0600, For 1 dose Given 07/30/2024 5:34 AM EDT 1 mg insulin aspart (NovoLOG) inj Subcutaneous, W/MEALS AND HS, First dose on Tue07/30/24 at 0900, Until Discontinued, MEDIUM DOSE (Usual starting dose): Sliding Scale Correctional insulin may be given if the patient is NPO. Dose based on standard build from Insulin Calculator. Do not modify insulin doses in administration instructions!, Glucose less than 70 instructions: Obtain STAT lab blood glucose and call covering provider., Glucose 80-150 (units): 0, Glucose 151-200 (units): 2, Glucose 201-250 (units): 4, Glucose 251-300 (units): 6, Glucose greater than 300 (units): 8, Glucose greater than 300 instructions: Give suggested insulin dose and call covering provider. Given 08/01/2024 10:07 PM EDT 2 Units Arm Right Upper Given 08/01/2024 12:17 PM EDT 2 Units A rm Right Upper Given 07/31/2024 9:40 PM EDT 2 Units Ar m Left Upper Lactulose (Constulose) oral soln 20 g 20 g, Oral, ONCE, On Tue07/31/24 at 1745, For 1 dose Given 07/31/2024 5:37 PM EDT 20 g Lactulose (Constulose) oral soln 30 g 30 g, Oral, ONCE, On Tue08/01/24 at 0830, For 1 dose Given 08/01/2024 8:06 AM EDT 30 g metFORMIN ER (Glucophage XR) 1,000 mg 1,000 mg, Oral, BID (AM/PM MEALS), First dose on Tue07/30/24 at 0900, Until Discontinued, METFORMIN SHOULD BE HELD FOR 24 HRS BEFORE AND 48 HRS AFTER PROCEDURES THAT REQUIRE CONTRAST MEDIUM !!!!! Use of Metformin in patients with Low GFR puts the patient at risk for adverse effects. - Please discontinue if GFR is less than 30. - Continue with caution, consider dosage reduction if GFR is between 30-45. - Do not initiate therapy in patients with GFR less than 45 Swallow tablet whole. Do NOT crush, cut or chew tablet. Given 08/02/2024 8:51 AM EDT 1,000 mg Given 08/01/2024 5:21 PM EDT 1,000 mg Given 08/01/2024 7:53 AM EDT 1,000 mg metoprolol succinate XL (toPROL XL) tab 100 mg 100 mg, Oral, BID (.AM/PM), First dose (after last modification) on Tue08/02/24 at 0900, Until Discontinued, Hold for HR less than 60 or SBP below 100 and notify service if dose is held This med should NOT be Crushed or Chewed. Given 08/02/2024 8:50 AM EDT 100 mg metoprolol succinate XL (toPROL XL) tab 25 mg 25 mg, Oral, QPM-1999, First dose on Tue07/31/24 at 2015, Until Discontinued, Hold for HR less than 60 or SBP below 100 and notify service if dose is held This med should NOT be Crushed or Chewed. Given 07/31/2024 8:03 PM EDT 25 mg metoprolol succinate XL (toPROL XL) tab 50 mg 50 mg, Oral, Daily(AM), First dose on Tue07/31/24 at 0900, Until Discontinued, Hold for HR less than 60 or SBP below 100 and notify service if dose is held This med should NOT be Crushed or Chewed. Given 07/31/2024 8:09 AM EDT 50 mg metoprolol succinate XL (toPROL XL) tab 50 mg 50 mg, Oral, BID (.AM/PM), First dose (after last modification) on Tue08/01/24 at 0730, Until Discontinued, Hold for HR less than 60 or SBP below 100 and notify service if dose is held This med should NOT be Crushed or Chewed. Given 08/01/2024 10:07 PM EDT 50 mg Given 08/01/2024 7:53 AM EDT 50 mg Metoprolol Tartrate (Lopressor) inj 5 mg 5 mg, IV Push, Q15 MINUTES, First dose on Tue07/30/24 at 0645, Last dose on Tue07/30/24 at 0715, For 3 doses Given 07/30/2024 7:32 AM EDT 5 mg Metoprolol Tartrate (Lopressor) inj 5 mg 5 mg, IV Push, ONCE, On Tue07/31/24 at 1915, For 1 dose Given 07/31/2024 6:44 PM EDT 5 mg Metoprolol Tartrate (Lopressor) inj 5 mg 5 mg, IV Push, Q8H PRN Other, HR>140mmhg, Starting on Tue07/31/24 at 2339, Until Swapna 08/02/24 at 1759 Given 08/01/2024 1:08 AM EDT 5 mg NSS 0.9% 1,000 mL bolus infusion Peripheral IV, at 1,000 mL/hr Administer over 60 Minutes, Administer entire volume within 60 minutes or less., ONCE, 1 dose, On Tue07/30/24 at 0600 New Bag 07/30/2024 5:34 AM EDT 1,000 mL 1000 mL/hr NSS 0.9% 1,000 mL bolus infusion Peripheral IV, at 1,000 mL/hr Administer over 60 Minutes, Administer entire volume within 60 minutes or less., ONCE, 1 dose, On Tue07/30/24 at 0730 Restarted 07/30/2024 7:08 AM EDT 1000 mL/hr New Bag 07/30/2024 6:55 AM EDT 1,000 mL 1000 mL/hr NSS 0.9% 250 mL bolus infusion Intravenous, at 250 mL/hr Administer over 60 Minutes, Administer entire volume within 60 minutes or less., ONCE, 1 dose, On Tue07/31/24 at 2230 New Bag 07/31/2024 10:07 PM EDT 250 mL 250 mL/hr omeprazole (PriLOSEC) cap 20 mg 20 mg, Oral, EVERY OTHER DAY, First dose on Tue07/30/24 at 0900, Until Discontinued, This med should NOT be Crushed or Chewed Given 08/01/2024 7:53 AM EDT 20 mg Given 07/30/2024 10:05 AM EDT 20 mg ondansetron (Zofran) inj 4 mg 4 mg, IV Push, Q6H PRN Nausea, Starting on Tue07/30/24 at 0814, Until Swapna 08/02/24 at 1759 oxygen GAS Inhalation, OXYGEN, First dose on Tue07/31/24 at 0130, Until Discontinued, Device/Managed by: Low Flow Device, Goal SPO2 (%): 91-95, Starting Device: Nasal Cannula, Initial Flow Rate (LPM): 2, Lowest Support: Nasal Cannula: Flow 0-6 LPM. Titrate up/down by 1 LPM., Titration Interval: Q2 minutes and as needed., Notify Provider: For sudden DECREASE in resting SPO2 to less than 85% and when escalating delivery device., Wean patient off Oxygen when the oxygen saturation is greater than or equal to 93% Oxygen On 08/01/2024 4:00 PM EDT Oxygen On 08/01/2024 8:00 AM EDT Oxygen On 08/01/2024 12:00 AM EDT 2 L/min(Oxygen) perflutren lipid microsphere inj SUSP 1.956 mg 1.956 mg, Intravenous, ONCE PRN Other, For Echo Only - Suboptimal Echo Images, Starting on Tue07/30/24 at 1208, Until Tue07/30/24 at 1407, For 2 hours, Administer IVP over 45 seconds, Cardiac Studies_HODHOV Given 07/30/2024 12:09 PM EDT 1.956 mg Piperacillin-Tazobactam (Zosyn) 4.5 g in 100 mL NSS ivpb (HALF hour infusion) IV Piggyback, 4.5 g, ONCE, 1 dose, On Tue07/30/24 at 0715, Administer over 30 Minutes New Bag 07/30/2024 7:01 AM EDT 4.5 g 210 mL/hr senna (Senokot) 1 Tablet 1 Tablet, Oral, Daily(AM), First dose on Tue07/31/24 at 1745, Until Discontinued Given 08/02/2024 8:51 AM EDT 1 Tablet Given 08/01/2024 7:53 AM EDT 1 Tablet Given 07/31/2024 5:33 PM EDT 1 Tablet sodium chloride 0.9 % flush/inj 3 mL 3 mL, IV Push, PRN Other, Line Patency, Starting on Tue07/30/24 at 0814, Until Tue08/02/24 at 1759, Do not flush if lock, PICC, or central line not in place, IV infusing or unable to flush Given 08/01/2024 1:17 AM EDT 3 mL Given 08/01/2024 1:15 AM EDT 3 mL Given 07/31/2024 10:21 PM EDT 3 mL traMADol (Ultram) tab 50 mg 50 mg, Oral, Q6H PRN Pain, Moderate, Pain, Severe, Starting on Tue07/30/24 at 0815, Until Swapna 08/02/24 at 1759 Given 08/02/2024 12:17 AM EDT 50 mg Given 07/31/2024 8:02 PM EDT 50 mg Vancomycin (Vancocin) 2,500 mg in NSS 500 mL ivpb 2,500 mg, IV Piggyback, ONCE, 1 dose, On Tue07/30/24 at 0715 Restarted 07/30/2024 8:43 AM EDT 1,000 mg/hr 214 mL/hr New Bag 07/30/2024 7:12 AM EDT 2,500 mg 214 mL/hr documented in this encounter Active and Recently Administered Medications Times are shown in EDT. Scheduled Medication Order 07/31/2024 08/01/2024 08/02/2024 Allopurinol (Zyloprim) tab 300 mg 300 mg, Oral, HS, First dose on Tue07/30/24 at 2200, Until Discontinued 2044 (Given - Provider: Delores Hughes RN) 2206 (Given - Provider: Sadia Corrales LPN) aspirin enteric coated tab 81 mg 81 mg, Oral, Daily(AM), First dose on Tue07/30/24 at 0900, Until Discontinued, This med should NOT be Crushed or Chewed 0809 (Given - Provider: Moni Bennett RN) 0753 (Given - Provider: Bailey Shaffer RN) 0851 (Given - Provider: SN Anni) atorvaSTATin (Lipitor) tab 40 mg 40 mg, Oral, Q1700, First dose on Tue07/30/24 at 1700, Until Discontinued 173 (Given - Provider: Marge Tuttle RN) 1721 (Given - Provider: Bailey Shaffer RN) Bisacodyl (Dulcolax) supp 10 mg (COMPLETED) 10 mg, Rectal, ONCE, On Tue08/01/24 at 0830, For 1 dose 0806 (Given - Provider: Bailey Shaffer RN) cefTRIAXone in dextrose (Rocephin) IVPB 2 g IV Piggyback, 2 g, Q24H, 5 doses, First dose on Tue07/30/24 at 1300, Last dose on Tue08/03/24 at 1300, Administer over 30 Minutes 1154 (New Bag - Provider: Moni Bennett RN)1204 (Paused - Provider: Moni Bennett RN)1211 (Restarted - Provider: Moni Bennett RN)1231 (Stopped - Provider: Moni Bennett RN) 1320 (New Bag - Provider: Bailey Shaffer RN)1350 (Stopped - Provider: Jacqueline Wilkins LPN) 1302 (New Bag - Provider: SN Anni)1331 (Stopped - Provider: Jacqueline Wilkins LPN) Digoxin (Lanoxin) 0.25 MG/ML inj 250 mcg (COMPLETED) 250 mcg, IV Push, ONCE, On Tue07/31/24 at 2230, For 1 dose, NOTE CONC: 250 MCG/ML PROTECT FROM LIGHT 2213 (Given - Provider: Delores Hughes RN) Docusate Sodium (Colace) cap 100 mg 100 mg, Oral, BID (.AM/PM), First dose on Tue07/31/24 at 1745, Until Discontinued, For oral administration ONLY, if route of administration is other than oral and alternative product must be ordered. 1733 (Given - Provider: Marge Tuttle RN) 0753 (Given - Provider: Bailey Shaffer RN)2207 (Given - Provider: Sadia Corrales LPN) 0851 (Given - Provider: SN Anni) Enoxaparin (Lovenox) inj 40 mg 40 mg, Subcutaneous, Daily(AM), First dose on Tue07/31/24 at 0900, Until Discontinued, If patient is on warfarin, inform provider if daily INR value is 2 or greater! 0809 (Given - Provider: Moni Bennett RN) 0758 (Given - Provider: Bailey Shaffer RN) 0854 (Given - Provider: SN Anni) Furosemide (Lasix) tab 40 mg 40 mg, Oral, Daily(AM), First dose on Tue07/31/24 at 0900, Until Discontinued 0809 (Given - Provider: Moni Bennett RN) 0753 (Given - Provider: Bailey Shaffer RN) 0851 (Given - Provider: SN nAni) Gabapentin (Neurontin) cap 600 mg 600 mg, Oral, TID(AM/NOON/HS), First dose on Tue07/30/24 at 1200, Until Discontinued 06 (Given - Provider: Cesilia Cardona RN)1152 (Given - Provider: Moni Bennett RN)2045 (Given - Provider: Delores Hughes RN) 0603 (Given - Provider: Nan Lan RN)1217 (Given - Provider: Bailey Shaffer RN)2207 (Given - Provider: Sadia Corrales LPN) 0602 (Given - Provider: Sadia Corrales LPN)1141 (Given - Provider: SN Anni) insulin aspart (NovoLOG) inj Subcutaneous, W/MEALS AND HS, First dose on Tue07/30/24 at 0900, Until Discontinued, MEDIUM DOSE (Usual starting dose): Sliding Scale Correctional insulin may be given if the patient is NPO. Dose based on standard build from [employer]ulin [employer]culator. Do not modify insulin doses in administration instructions!, Glucose less than 70 instructions: Obtain STAT lab blood glucose and call covering provider., Glucose 80-150 (units): 0, Glucose 151-200 (units): 2, Glucose 201-250 (units): 4, Glucose 251-300 (units): 6, Glucose greater than 300 (units): 8, Glucose greater than 300 instructions: Give suggested insulin dose and call covering provider. 0808 (Given - Provider: Moni Bennett RN)1200 (No Insulin - Provider: Moni Bennett RN - Reason: Parameter(s) Not Met)1700 (Not Given - Provider: Marge Tuttle RN - Reason: Parameter(s) Not Met)2140 (Given - Provider: Adelina Mcclure RN) 0800 (Not Given - Provider: Bailey Shaffer RN - Reason: Parameter(s) Not Met)1217 (Given - Provider: Bailey Shaffer RN)1700 (Not Given - Provider: Bailey Shaffer RN - Reason: Parameter(s) Not Met)2207 (Given - Provider: Sadia Corrales LPN) 0800 (No Insulin - Provider: Jacqueline Wilkins LPN - Reason: Parameter(s) Not Met)1200 (No Insulin - Provider: SN Anni - Reason: Parameter(s) Not Met) Lactulose (Constulose) oral soln 20 g (COMPLETED) 20 g, Oral, ONCE, On Tue07/31/24 at 1745, For 1 dose 1737 (Given - Provider: Marge Tuttle RN) Lactulose (Constulose) oral soln 30 g (COMPLETED) 30 g, Oral, ONCE, On Tue08/01/24 at 0830, For 1 dose 0806 (Given - Provider: Bailey Shaffer RN) metFORMIN ER (Glucophage XR) 1,000 mg 1,000 mg, Oral, BID (AM/PM MEALS), First dose on Tue07/30/24 at 0900, Until Discontinued, METFORMIN SHOULD BE HELD FOR 24 HRS BEFORE AND 48 HRS AFTER PROCEDURES THAT REQUIRE CONTRAST MEDIUM !!!!! Use of Metformin in patients with Low GFR puts the patient at risk for adverse effects. - Please discontinue if GFR is less than 30. - Continue with caution, consider dosage reduction if GFR is between 30-45. - Do not initiate therapy in patients with GFR less than 45 Swallow tablet whole. Do NOT crush, cut or chew tablet. 0809 (Given - Provider: Moni Bennett RN)1733 (Given - Provider: Marge Tuttle RN) 0753 (Given - Provider: Bailey Shaffer RN)1721 (Given - Provider: Bailey Shaffer RN) 0851 (Given - Provider: SN Anni) metoprolol succinate XL (toPROL XL) tab 100 mg 100 mg, Oral, BID (.AM/PM), First dose (after last modification) on Tue08/02/24 at 0900, Until Discontinued, Hold for HR less than 60 or SBP below 100 and notify service if dose is held This med should NOT be Crushed or Chewed. 0850 (Given - Provider: SN Anni) metoprolol succinate XL (toPROL XL) tab 25 mg (CANCELED) 25 mg, Oral, QPM-1999, First dose on Tue07/31/24 at 2015, Until Discontinued, Hold for HR less than 60 or SBP below 100 and notify service if dose is held This med should NOT be Crushed or Chewed. 2002 (Given - Provider: Delores Hughes, RN) metoprolol succinate XL (toPROL XL) tab 50 mg (CANCELED) 50 mg, Oral, Daily(AM), First dose on Tue07/31/24 at 0900, Until Discontinued, Hold for HR less than 60 or SBP below 100 and notify service if dose is held This med should NOT be Crushed or Chewed. 08 (Given - Provider: Moni Bennett RN) metoprolol succinate XL (toPROL XL) tab 50 mg (CANCELED) 50 mg, Oral, BID (.AM/PM), First dose (after last modification) on Tue08/01/24 at 0730, Until Discontinued, Hold for HR less than 60 or SBP below 100 and notify service if dose is held This med should NOT be Crushed or Chewed. 0753 (Given - Provider: Bailey Shaffer, RN)2207 (Given - Provider: Sadia Corrales LPN) Metoprolol Tartrate (Lopressor) inj 5 mg (COMPLETED) 5 mg, IV Push, ONCE, On Tue07/31/24 at 1915, For 1 dose 1844 (Given - Provider: Penelope Comer, CHRIS) NSS 0.9% 250 mL bolus infusion (COMPLETED) Intravenous, at 250 mL/hr Administer over 60 Minutes, Administer entire volume within 60 minutes or less., ONCE, 1 dose, On Tue07/31/24 at 2230 2207 (New Bag - Provider: Delores Hughes, RN)2305 (Stopped - Provider: Delores Hughes, RN)230 (Stopped - Provider: Delores Hughes, RN) omeprazole (PriLOSEC) cap 20 mg 20 mg, Oral, EVERY OTHER DAY, First dose on Tue07/30/24 at 0900, Until Discontinued, This med should NOT be Crushed or Chewed 0753 (Given - Provider: Bailey Shaffer RN) oxygen GAS Inhalation, OXYGEN, First dose on Tue07/31/24 at 0130, Until Discontinued, Device/Managed by: Low Flow Device, Goal SPO2 (%): 91-95, Starting Device: Nasal Cannula, Initial Flow Rate (LPM): 2, Lowest Support: Nasal Cannula: Flow 0-6 LPM. Titrate up/down by 1 LPM., Titration Interval: Q2 minutes and as needed., Notify Provider: For sudden DECREASE in resting SPO2 to less than 85% and when escalating delivery device., Wean patient off Oxygen when the oxygen saturation is greater than or equal to 93% 0130 (Oxygen On - Provider: Sadia Corrales LPN)0800 (Oxygen On - Provider: Moni Bennett RN)1600 (Oxygen On - Provider: Marge Tuttle RN) 0000 (Oxygen On - Provider: Delores Hughes RN)0800 (Oxygen On - Provider: Bailey Shaffer RN)1600 (Oxygen On - Provider: Bailey Shaffer RN) 0000 (Oxygen Off - Provider: Hilda Esposito RN)0800 (Oxygen Off - Provider: Jacqueline Wilkins LPN) senna (Senokot) 1 Tablet 1 Tablet, Oral, Daily(AM), First dose on Tue07/31/24 at 1745, Until Discontinued 1733 (Given - Provider: Marge Tuttle RN) 0753 (Given - Provider: Bailey Shaffer RN) 0851 (Given - Provider: SN Anni) PRN Medication Order 07/31/2024 08/01/2024 08/02/2024 Acetaminophen (Tylenol) tab 650 mg 650 mg, Oral, Q6H PRN Pain, Mild, Fever >38C(100.5F), Starting on Tue07/30/24 at 0814, Until Swapna 08/02/24 at 1759, Maximum of 4 grams (4000 mg) per day. 2043 (Given - Provider: Delores Hughes RN - Comment: given per MD verbal instruction for temp 99.5F.) 121 (Given - Provider: Bailey Shaffer RN - Comment: pt requested) dextrose 50% inj 25 mL 25 mL, IV Push, PRN Hypoglycemia, Other, For blood glucose 54 - 69 mg/dL or 70 - 100 mg/dL with symptoms AND patient is unresponsive, NPO, OR unable to swallow, Starting on Tue07/30/24 at 0815, Until Swapna 08/02/24 at 1759, Administer IV. Recheck blood glucose after 15 minutes. Notify provider. dextrose 50% inj 50 mL 50 mL, IV Push, PRN Hypoglycemia, Other, For blood glucose below 54 mg/dL AND patient unresponsive, NPO, OR unable to swallow, Starting on Tue07/30/24 at 0815, Until Swapna 08/02/24 at 1759, Administer IV. Recheck blood glucose in 15 minutes. Notify provider. glucagon (Glucagen) inj 1 mg 1 mg, Intramuscular, PRN Hypoglycemia, Other, If patient is unresponsive, or NPO and has no IV access, Starting on Tue07/30/24 at 0815, Until Swapna 08/02/24 at 1759, NPO and no IV access with either 1) blood glucose less than 100 mg/dL and symptomatic OR 2) blood glucose less than 70 mg/dL and asymptomatic Glucose (Glutose 15) 40 % gel 15 g of glucose 15 g of glucose, Oral, PRN Hypoglycemia (low sugar), Other, For blood glucose 54 - 69 mg/dL or 70 - 100 mg/dL with symptoms AND patient alert WITH difficulty chewing/swallowing, Starting on Tue07/30/24 at 0815, Until Swapna 08/02/24 at 1759, Administer gel. Recheck blood glucose after 15 minutes. Notify provider. 37.5 gram tube = 15 grams glucose = 1 each Glucose (Glutose 15) 40 % gel 30 g of glucose 30 g of glucose, Oral, PRN Hypoglycemia (low sugar), Other, For blood glucose below 54 mg/dL AND patient alert WITH difficulty chewing/swallowing, Starting on Tue07/30/24 at 0815, Until Swapna 08/02/24 at 1759, Administer gel. Recheck blood glucose after 15 minutes. Notify provider. 37.5 gram tube = 15 grams glucose = 1 each glucose chew tab 16 g 16 g, Oral, PRN Hypoglycemia, Other, For blood glucose 54 - 69 mg/dL or 70 - 100 mg/dL with symptoms and patient alert without difficulty chewing/swallowing., Starting on Tue07/30/24 at 0815, Until Swapna 08/02/24 at 1759 Metoprolol Tartrate (Lopressor) inj 5 mg 5 mg, IV Push, Q8H PRN Other, HR>140mmhg, Starting on Tue07/31/24 at 2339, Until Swapna 08/02/24 at 1759 0108 (Given - Provider: Delores Hughes RN) ondansetron (Zofran) inj 4 mg 4 mg, IV Push, Q6H PRN Nausea, Starting on Tue07/30/24 at 0814, Until Swapna 08/02/24 at 1759 sodium chloride 0.9 % flush/inj 3 mL 3 mL, IV Push, PRN Other, Line Patency, Starting on Tue07/30/24 at 0814, Until Swapna 08/02/24 at 1759, Do not flush if lock, PICC, or central line not in place, IV infusing or unable to flush 222 (Given - Provider: Delores Hughes RN) 0115 (Given - Provider: Delores Hughes RN)0117 (Given - Provider: Delores Hughes RN) traMADol (Ultram) tab 50 mg 50 mg, Oral, Q6H PRN Pain, Moderate, Pain, Severe, Starting on Tue07/30/24 at 0815, Until Swapna 08/02/24 at 1759 2001 (Given - Provider: Delores Hughes RN) 0017 (Given - Provider: Hilda Esposito RN) documented in this encounter Additional Health Concerns Infection Onset Date Last Indicated Resolved Time Respiratory Rule-Out 07/30/2024 07/30/2024 024 6:13 AM EDT COVID-19 Rule-Out 07/30/2024 07/30/2024 07/30/2024 6:13 AM EDT documented as of this encounter Advance Directives * [...] the patient have Health Care Power of Wirer Maintenance? Yes, not currently available Care Teams Pearl Maker Relationship Specialty Start Date End Date Yury Cash MD [address] [place], [place] [address] [id number] PCP - General Family Medicine 07/19/24 documented as of this encounter
--- OUTSIDE RECORDS SUMMARY | 2024-11-07 08:05 | External Medical Summary | Summary of Care ---
Author Name Unknown Organization [facility] Address [address] [facility] [place] [address] Phone [phone] Care Team Providers Care Melter Loader Name Role Phone Yury Cash MD Primary Care [facility] Reason for Referral * Evaluate & Treat - Unlimited Visits (Within 10 days (routine)) - Authorized Specialty Diagnoses / Procedures Referred By Contac t Referred To Contact Pain Management / Pain Medicine Diagnoses Sprain, sacroiliac Yury Cash MD [address] [place] [phone] Referral ID Status Reason Start Date Expiration Date Visits Requested Visits Authorized [id number] Authorized Specialty Services Required 08/06/2024 999 999 Question Answer Referral Priority Within 10 days (routine) Where should this appointment be scheduled? [facility] Reason for referral? Interventional Pain Management - (Injection) What condition is the patient being referred for? Lumbar Radiculopathy What is the preferred location to have this test performed? [facility] II Comments Patient Name: Gomez [...] pain if not done previously. Fax No. [facility] [phone] or contact front end web designer [phone] Fax No. [facility] [phone] or contact front end web designer [phone] Fax No. [facility] [phone] or contact front end web designer [phone] Reason for Visit * Reason Onset Date Comments Adult Annual Wellness Visit, Initial Visit Adult Annual Wellness Visit, Initial Visit 08/06 Encounter Details Date Type Department Care Team ([facility] Contact Info) Description 08/06/2024 9:00 AM EDT Nurse Only Ancillary [address] [phone] Have, Nurse Annual [address] [address] Adult Annual Wellness Visit, Initial Visit... Allergies [...] the morning. In the morning.. 11/19/2023 Active Krikle 2 w/Device Kit Check blood sugars once [...] to breakdown of skin 09/27/2023 Atherosclerosis of [place] co ronary artery without angina pectoris 02/09/2023 [...] (AAA) without rupture 06/06/2020 Unspecified atherosclerosis of [place] arteries of extremities, bilateral legs 02/15/2019 Type [...] 10/13/2018 02/15/2019 Coronary artery disease invo lving [place] heart without angina pectoris 06/01/2018 11/10/2021 DM type 2 causing neurological disease 01/24/2018 01/14/2021 Type 2 diabetes mellitus wit h diabetic nephropathy, without long-term current use of insulin 09/08/2017 09/08/2017 Atherosclerotic heart diseas e of [place] coronary artery with unspecified angina pectoris 09/08/2017 [...] mRNA, LNP-s, No Pre serve, 2-Dose Series ([employer]) 08/13/2021,01/22/2021,12/27/2020 Covid-19, Mrna, Lnp-s, Pf, B ivalent, [...] 120 mg/dL Sincerely, Yury Cash MD 08/06/2024 [facility] Calendar (as of Visit date not found [...] your insurance company to determine what's covered. 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 Aortic stenosis CAD (coronary artery disease) CKD (chronic kidney disease) stage 3, GFR 30-59 ml/min ([facility]) 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 DM type 2, goal A1c below 7 09/20/2011 Gout 10/14/2014 Hyperlipidemia Other after-cataract, not obscuring vision 04/07/2009 Paroxysmal atrial fibrillation (HCC) PVD (peripheral vascular disease) ([facility]) Recurrent falls Recurrent UTI Urinary retention Vitreous [...] performed by Bharath Monaco MD at OR [facility] REMOVAL OF TONSILS, UNDER AGE 12 approx age 11 SACROILIAC JOINT INJECT W/GUIDANCE Bilateral 05/09/2023 INJECTION SACROILIAC JOINT performed by Roberto Li DO at OR [facility] SACROILIAC JOINT INJECT W/GUIDANCE Bilateral 09/29/2023 INJECTION SACROILIAC JOINT performed by Roberto Li DO at OR [facility] Family History Problem Relation Name Age of [...] COVID-19 mRNA, LNP-s, No Preserve, 2-Dose Series ([employer]) 12/27/2020, 01/22/2021, 08/13/2021 Covid-19, Mrna, Lnp-s, Pf, [...] mouth in the morning. In the morning.. Krikle 2 w/Device Kit Check blood sugars once [...] use of insulin (HCC) Unspecified atherosclerosis of [place] arteries of extremities, bilateral legs (HCC) Abdominal aortic aneurysm (AAA) without rupture ([facility]) Chronic kidney disease, stage 3a ([facility]) 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 ([facility]) Atherosclerosis of [place] coronary artery without angina pectoris Skin ulcer of right ankle, limited to breakdown of skin (HCC) Cellulitis COVID Elevated lactic acid level Fever, unknown origin Hematuria History of tonsillectomy Hypomagnesemia Hypoxia PVD (peripheral vascular disease) ([facility]) Recurrent falls Retention of urine Urinary tract infection Pneumonia of left lower lobe due to infectious organism Elevated troponin Generalized weakness Encephalopathy acute Physical deconditioning Ambulatory dysfunction Atrial fibrillation with RVR ([facility]) Type 2 myocardial infarction (HCC) Cellulitis of [...] disturbances Visually impaired Older than age 70 Xhp-Az-kvc-Go Test: Time began at 0900. Patient stood from sitting position and walked approximately 10 feet, returned and sat down. Total time for jap-ap-pey-go test was 9 seconds. Jjn-Vp-fer-Go Test completed? Yes Gender Specific Preventative Plan: Health Maintenance Topic Date Due Colonoscopy 01/20/2016 Albumin/Creatinine Ratio 05/07/2023 Diabetic Foot Exam 06/08/2024 COVID-19 Vaccine ( season) 2024 HbA1c 01/16/2025 CKD PHOS USE SMARTSET 30680 02/09/2025 B-12 05/17/2025 Diabetic Eye Exam 06/18/2025 CKD HGB USE SMARTSET 29770 08/02/2025 Depression Screening 08/06/2025 Adult Wellness Visit [...] pt to continue present medications. Atherosclerosis of [place] coronary artery of [place] heart without angina pectoris - Med reconciliation [...] White RN - 08/06/2024 9:42 AM EDT [id number] Fall Prevention Falls often take place due [...] more often. Last Reviewed Date: 2021 00:00:00 [id number] [employer]. All rights reserved. This information is not intended as a substitute for professional medical care. Always follow your healthcare professional's instructions. * Pt Handout (on AVS) - Maru White RN - 08/06/2024 9:42 AM EDT Images from the original note were not included. [id number] Steps for Eating Healthier Changing the [...] your fist. Last Reviewed Date: 2022 00:00:00 [id number] [employer]. All rights reserved. This information is not intended as a substitute for professional medical care. Always follow your healthcare professional's instructions. documented in this encounter Plan of Treatment Upcoming Encounters Date Type Department Care Team ([facility] st Contact Info) Description 08/07/2024 12:30 PM EDT Home Visit [facility] [address] [address] Dhara Sky RN [address] [place] [address] 08/14/2024 9:00 AM EDT Office Visit Family [address] [phone] Yury Cash MD [address] [place] [phone] 08/17/2024 10:30 AM EDT Home Visit [facility] at [facility] [address] [place] [address] Marjorie Summers CRNP [address] [place] [address] Masha Rutledge, Community Health Environmental Designer [address] [place] [address] 10/25/2024 7:00 AM EST Laboratory [facility] [phone] [address] 11/01/2024 11:40 AM EST Office Visit [address] [phone] Yury Cash MD [address] [place] [phone] 11/21/2024 8:30 AM EST Office Visit Cardiology, [facility] [address] [place] [address] Sajan Griffith PAOnofreC [address] [place] [address] 05/29/2025 9:45 AM EDT Office Visit [facility] [address] [place] [address] Constantino Weber DO 16 [place] [address] Scheduled Referrals Name Type Priority Associated Diagnoses [...] Additional history exists CKD PHOS USE SMARTSET 01619 02/09/202501/29, 02/10/2024, 01/06/2024, Additional history exists B-12 05/17/2025 05/17/2024, 05/2024, 07/07/2023, Additional history exists Diabetic Eye Exam 06/18/2025 06/18/2024, , 05/25/2024, Additional history exists Adult Wellness Visit 08/06/2025 08/06/2024 CKD HGB USE SMARTSET 63494 08/06/202508/06, 08/06/2024, 08/02/2024, Additional history exists Depression [...] atrial fibrillation (HCC) Atrial fibrillation Atherosclerosis of [place] coronary artery of [place] heart without angina pectoris Retention of urine [...] patient have Health Care Power of Attor ismone? No * Full Code Date Activated Date [...] the patient have Health Care Power of Neurology Hospitalist? Yes, not currently available Care Teams Melter Loader Relationship Specialty Start Date End Date Yury Cash MD [address] [place] [phone] PCP - General Family Medicine 07/19/24 documented as of this encounter
--- OUTSIDE RECORDS SUMMARY | 2024-11-07 08:05 | External Medical Summary ---
Author Name Unknown Address Unknown Organization K1G:LABORATORY [facility] - [address] [place] [id number] Laboratory Report Ordering Provider Test Date Status MARKELL RODRIGUEZ 08/06/2024 11:38:31 Final Observation Date Value Abnormality Reference (Units ) Status WBC, Total 08/06/2024 11:38:31 8.14 4.00-10.8 0 (K/uL) Final RBC 08/06/2024 11:38:31 4.41 4.50-5.25 (M/uL) Final Hemoglobin 08/06/2024 11:38:31 11.3 Below low normal 14 .0-16.8 (g/dL) Final HCT 08/06/2024 11:38:31 37.0 Below low normal 40. 0-48.4 (%) Final MCV 08/06/2024 11:38:31 83.9 82.0-99.5 (fL) Final MCH 08/06/2024 11:38:31 25.6 27.0-34.0 (pg) Final MCHC 08/06/2024 11:38:31 30.5 32.0-36.0 (g/dL) Final RDW 08/06/2024 11:38:31 17.7 11.5-15.5 (%) Final Platelets 08/06/2024 11:38:31 188 140-400 (K /uL) Final MPV 08/06/2024 11:38:31 10.6 6.6-11.1 ( fL) Final Performing Location LABORATORY [facility] - [address] [place] [phone]
--- OUTSIDE RECORDS SUMMARY | 2024-11-07 08:05 | External Medical Summary ---
Author Name Unknown Address Unknown Organization K1G:LABORATORY [facility] - [address] [facility] [address] Laboratory Report Ordering Provider Test Date Status JAXSON RODRIGUEZLorena 08/06/2024 11:38:31 Final Observation Date Value Abnormality Reference (Units ) Status SYNC LEUKOCYTES IN BLOOD BY AUTOMATED COUNT 08/06/2024 11:38:31 8.14 4.00-10.80 (K/uL) Final Segs 08/06/2024 11:38:31 71.2 40.0-75.0 (%) Final Lymphs % 08/06/2024 11:38:31 16.8 Below low normal 18.0-42.0 (%) Final Monos 08/06/2024 11:38:31 11.2 Above high normal 1.0-11.0 (%) Final Eosinophils 08/06/2024 11:38:31 0.7 0.0-6.0 (%) Final Basos 08/06/2024 11:38:31 0.1 0.0-2.0 (%) Final Absolute Segs 08/06/2024 11:38:31 5.79 1.80-7.70 (K/uL) Final Lymphs, absolute 08/06/2024 11:38:31 1.37 1.00-4.80 (K/ul) Final Monos, Abs 08/06/2024 11:38:31 0.91 0.00-1.10 (K/uL) Final Eos, Abs 08/06/2024 11:38:31 0.06 0.00-0.70 (K/uL) Final Basos, Abs 08/06/2024 11:38:31 0.01 0.00-0.20 (K/uL) Final Performing Location LABORATORY [facility] - [address] [facility] [place] [address]
--- OUTSIDE RECORDS SUMMARY | 2024-11-07 08:05 | External Medical Summary | Summary of Care ---
Author Name Unknown Organization [facility] Address [address] [place] [address] Phone [phone] Care Team Providers Care New Patient Escort Name Role Phone Yury Cash MD Primary Care [facility] Reason for Visit * Reason Onset Date Comments [facility]: Engagement 08/02/2024 Encounter Details Date Type Department Care Team (Late st Contact Info) Description 08/02/2024 Telephone [facility], [place] [address] [facility] [address] [place], [place] [phone] Lulu Morris, YEISON [address] [place], [place] [phone] [facility]: Engagement Allergies No known active allergiesdocumented as of this encounter (statuses as of 08/02/2024) Medications Medication Sig Dispensed Refills Start Date [...] the morning. In the morning.. 11/19/2023 Active Rebel Monkey 2 w/Device Kit Check blood sugars once [...] as of this encounter (statuses as of 08/02/2024) Active Problems Problem Noted Date Diagnosed Date [...] (AAA) without rupture 06/06/2020 Unspecified atherosclerosis of [place] arteries of extremities, bilateral legs 02/15/2019 Type [...] as of this encounter (statuses as of 08/02/2024) Resolved Problems Problem Noted Date Diagnosed Date [...] as of this encounter (statuses as of 08/02/2024) Immunizations Name Administration Dates Next Due COVID-19 mRNA, LNP-s, No Pre serve, 2-Dose Series ([employer]) 08/13/2021,01/22/2021,12/27/2020 Covid-19, Mrna, Lnp-s, Pf, B ivalent, [...] encounter Miscellaneous Notes * Telephone Encounter - Lulu Morris OSA - 08/02/2024 3:42 PM EDT Outreach to patient for [facility] scheduling. Patient Accepted Date Scheduled: 08/16 Time: 12 In Person RNCM Special Instructions: na documented in this encounter Plan of Treatment Upcoming Encounters Date Type Department Care Team ([facility] Contact Info) Description 08/06/2024 9:00 AM EDT Nurse Only Ancillary Keith Sandoval [address] [place] [address] [place] [phone] Radha, Nurse [address] [address] 08/07/2024 12:30 PM EDT [facility] Visit [facility] [address] [place] [address] Dhara Sky RN [address] [place] [address] 08/14/2024 9:00 AM EDT Office Visit [address] [phone] Yury Cash MD [address] [place] [phone] 08/17/2024 10:30 AM EDT [facility] [address] [place] [address] Marjorie Summers CRNP [address] [place] [address] Masha Rutledge, Community Health Curing Oven Attendant [facility] [place] [address] 10/25/2024 7:00 AM EST Laboratory Laboratory Patient Service [address] [phone] [address] 11/01/2024 11:40 AM EST Office Visit [address] [phone] Yury Cash MD [address] [place] [phone] 11/21/2024 8:30 AM EST Office Visit Cardiology, [facility] [address] [place] [address] Sajan Griffith PA-C [address] [place] [address] 05/29/2025 9:45 AM EDT Office Visit [facility] 16 [place] [address] Constantino Weber DO [address] [place] [address] Health Maintenance Due Date Last Done Comments Adult Wellness Visit 2002 Colonoscopy 01/20/2016 01/19/2011, 12/29, 01/07/2011, Additional history exists Albumin/Creatinine Ratio 05/07/2023 022, 04/11/2021, 05/28/2020, Additional history exists Diabetic Foot Exam 06/08/2024 06/08/2023, 1 , 11/10/2021, Additional history exists COVID-19 Vaccine ( season) 2024 11/09/2022, 08/13/2021, 01/22/2021, Additional history exists HbA1c 01/16/2025 07/19/2024, 01/29, 02/10/2024, Additional history exists CKD PHOS USE SMARTSET 20421 02/09/202501/29, 02/10/2024, 01/06/2024, Additional history exists Depression Screening 04/24/2025 04/24/2024, 04/21/20 15 B-12 05/17/2025 05/17/2024, 05/0 05/2024, 07/07/2023, Additional history exists Diabetic Eye Exam 06/18/2025 06/18/2024, , 05/25/2024, Additional history exists CKD HGB USE SMARTSET 75242 08/02/202508/02, 08/01/2024, 07/31/2024, Additional history exists DTap/Tdap [...] Activated Date Inactivated Comments 07/30/2024 8:15 AM This order ref lects the patients wishes and were consensually agreed [...] patient have Health Care Power of Manager Wound Care? Yes, not currently available Care Teams New Patient Escort Relationship Specialty Start Date End Date Yury Cash MD [address] [place] [phone] PCP - General Family Medicine 07/19/24 documented as of this encounter
[2024-11-07] MEDS: VANCOMYCIN HCL 1,500 MG in SODIUM CHLORIDE 0.9% 500 ML IV SCH (08:06)
--- OUTSIDE RECORDS SUMMARY | 2024-11-07 08:06 | External Medical Summary ---
Author Name Unknown Address Unknown Organization K1G:LABORATORY [facility] - [facility] [address] Laboratory Report Ordering Provider Test Date Status NEDA HUGO 07/30/2024 16:47:10 Final Observation Date Value Abnormality Reference (Units ) Status Glucose Point of Care 07/30/2024 16:47:10 129 Above high normal 70-120 (mg/dL) Final Performing Location LABORATORY [facility] - [address] [facility] [phone]
--- OUTSIDE RECORDS SUMMARY | 2024-11-07 08:06 | External Medical Summary | Summary of Care ---
Author Name Unknown Organization [facility] Address [address] [place] [address] Phone [phone] Care Team Providers Care Furniture Mover Driver Name Role Phone Yury Cash MD Primary Care Provi [facility] Reason for Visit * Reason Onset Date Comments [facility]: Screening 08/02/2024 Encounter Details Date Type Department Care Team (Late st Contact Info) Description 08/02/2024 Telephone [facility], [facility] [address] [facility] [place] [address] Dolores Velasquez LPN [address] [facility] [place] [address] [facility]: Screening Allergies No known active allergiesdocumented as of this encounter (statuses as of 08/02/2024) Medications Medication Sig Dispensed Refills Start Date End Date Status Metoprolol Succinate ER 100 MG Oral Tablet [...] 4 days. 8 Capsule 08/02/2024 08/06/2024 Active aspirin enteric coated 81 MG TBEC Take 1 Tablet by mouth in the morning. 05/14/2016 Suspended ONETOUCH DELICA LANCETS FINE MISC Check blood sugars once daily, E11.9, not using insulin, 100 Each 3 11/24/2018 Suspended Additional Information Multiple Vitamin (ONE-A-DAY MENS) Tablet Take 1 Tablet by mouth in the morning. Suspended [employer] Ultra Blue In Vitro Strip (Glucose Blood) USE 1 STRIP TO CHECK GLUCOSE ONCE DAILY, dx E11.40 100 Strip 3 10/04/2021 Suspended Additional Information Allopurinol 300 MG Oral Tablet (Zyloprim) TAKE ONE TABLET BY MOUTH EVERY DAY 90 Tablet 3 11/17/2023 11/16/2024 Suspended Additional Information Patient taking differently: 300 mg Oral HS, Reported on 12/22/2023 Omeprazole 20 MG Oral Capsule Delayed Release (PriLOSEC)Indica tions:Dysphagia TAKE 1 CAPSULE BY MOUTH IN THE MORNING. TAKE 1 HOUR BEFORE THE FIRST MEAL OF THE DAY. 90 Capsule 2 11/17/2023 Suspended Additional Information Patient taking differently: 20 mg Oral EVERY OTHER DAY, Reported on 12/22/2023 metFORMIN HCl ER 500 MG Oral Tablet Extended Release 24 Hour (Glucophage XR)Indications:T ype 2 diabetes mellitus with diabetic neuropathy, without long-term current use of insulin (HCC) Take 2 Tablets by mouth 2 times a day with morning and evening meals. 400 Tablet 1 01/10/2024 Suspended Additional Information Gabapentin 600 MG Oral Tablet (Neurontin)Indic ations:Type 2 diabetes mellitus with diabetic neuropathy, without long-term current use of insulin (HCC) TAKE ONE TABLET BY MOUTH THREE TIMES A DAY 270 Tablet 1 01/10/2024 01/09/2025 Suspended Additional Information Myrbetriq 50 MG Oral Tablet Extended Release 24 Hour Take 1 Tablet by mouth in the morning. In the morning.. 11/19/2023 Suspended Stand Offer Ultra 2 w/Device Kit Check blood sugars once daily 1 Kit 01/31/2024 Suspended Additional Information Atorvastatin Calcium 40 MG Oral Tablet (Lipitor)Indicat ions:Dyslipidemi a, goal LDL below 100 TAKE ONE TABLET BY MOUTH EVERY DAY 100 Tablet 1 07/16/2024 Suspended Additional Information documented as of this encounter (statuses as [...] to breakdown of skin 09/27/2023 Atherosclerosis of [place] co ronary artery without angina pectoris 02/09/2023 [...] (AAA) without rupture 06/06/2020 Unspecified atherosclerosis of [place] arteries of extremities, bilateral legs 02/15/2019 Type [...] 10/13/2018 02/15/2019 Coronary artery disease invo lving [place] heart without angina pectoris 06/01/2018 11/10/2021 DM type 2 causing neurological disease 01/24/2018 01/14/2021 Type 2 diabetes mellitus wit h diabetic nephropathy, without long-term current use of insulin 09/08/2017 09/08/2017 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 A review of this chart was completed and: Gomez meets criteria for [facility]. Jump to Initiation Referring care team was notified via : [employer] communication Currently in opt at [facility], will follow for DC documented in this encounter Plan of Treatment Upcoming Encounters Date Type Department Care Team ([facility] st Contact Info) Description 08/06/2024 9:00 AM EDT Nurse Only Ancillary [address] [phone] Radha, [place] [address] 08/14/2024 9:00 AM EDT Office Visit [address] [phone] Yury Cash MD [address] [place] [phone] 10/25/2024 7:00 AM EST Laboratory Laboratory [facility] Center[address] [phone] Radha, Lab Lock [address] [place] [address] 11/01/2024 11:40 AM EST Office Visit [address] [phone] Yury Cash MD [address] [place] [phone] 11/21/2024 8:30 AM EST Office Visit Cardiology, [facility] [address] [facility] [place] [address] Sajan Griffith PA-C [address] [facility] [place] [address] 05/29/2025 9:45 AM EDT [facility] [address] [place] [address] Constantino Weber DO 16 [place], [place] [phone] Health Maintenance Due Date Last Done Comments Adult Wellness Visit 2002 Colonoscopy 01/20/2016 01/19/2011, 12/29, 01/07/2011, Additional history exists Albumin/Creatinine Ratio 05/07/2023 022, 04/11/2021, 05/28/2020, Additional history exists Diabetic Foot Exam 06/08/2024 06/08/2023, 1 , 11/10/2021, Additional history exists COVID-19 Vaccine ( season) 2024 11/09/2022, 08/13/2021, 01/22/2021, Additional history exists HbA1c 01/16/2025 07/19/2024, 01/29, 02/10/2024, Additional history exists CKD PHOS USE SMARTSET 61688 02/09/202501/29, 02/10/2024, 01/06/2024, Additional history exists Depression Screening 04/24/2025 04/24/2024, 04/21/20 15 B-12 05/17/2025 05/17/2024, 05/0 05/2024, 07/07/2023, Additional history exists Diabetic Eye Exam 06/18/2025 06/18/2024, , 05/25/2024, Additional history exists CKD HGB USE SMARTSET 79967 08/02/202508/02, 08/01/2024, 07/31/2024, Additional history exists DTap/Tdap [...] the patient have Health Care Power of Hospitality Internship? Yes, not currently available Care Teams Furniture Mover Driver Relationship Specialty Start Date End Date Yury Cash MD [address] [place] [phone] PCP - General Family Medicine 07/19/24 documented as of this encounter
--- OUTSIDE RECORDS SUMMARY | 2024-11-07 08:06 | External Medical Summary ---
Author Name Unknown Address Unknown Organization K1G:LABORATORY [facility] - [facility] [address] Laboratory Report Ordering Provider Test Date Status NEDA HUGO 08/02/2024 11:36:27 Final Observation Date Value Abnormality Reference (Units ) Status Glucose Point of Care 08/02/2024 11:36:27 144 Above high normal 70-120 (mg/dL) Final Performing Location LABORATORY [facility] - [address] [facility] [phone]
--- OUTSIDE RECORDS SUMMARY | 2024-11-07 08:06 | External Medical Summary ---
Author Name Unknown Address Unknown Organization K1G:LABORATORY [facility] - [address] [place] [address] Laboratory Report Ordering Provider Test Date Status SHEA ABREU 07/30/2024 09:20:00 Final Observation Date Value Abnormality Reference (Units ) Status Lactic Acid, Whole Blood 07/30/2024 09:20:00 1.9 0.4-2.0 (mmol/L) Final Performing Location LABORATORY [facility] - [address] [place] [address] [place] [address]
--- OUTSIDE RECORDS SUMMARY | 2024-11-07 08:06 | External Medical Summary ---
Author Name Unknown Address Unknown Organization K1G:LABORATORY [facility] - [address] [place] [address] Laboratory Report Ordering Provider Test Date Status SHEA ABREU 07/30/2024 05:17:00 Final Observation Date Value Abnormality Reference (Units ) Status Troponin T 07/30/2024 05:17:00 183 Above upper panic limits <=22 (ng/L) Final Performing Location LABORATORY [facility] - [address] [place] [address] [place] [address]
--- OUTSIDE RECORDS SUMMARY | 2024-11-07 08:06 | External Medical Summary ---
Author Name Unknown Address Unknown Organization K1G:LABORATORY [facility] - [facility]0 [facility] [address] Laboratory Report Ordering Provider Test Date Status NEDA HUGO 07/31/2024 11:31:57 Final Observation Date Value Abnormality Reference (Units ) Status Glucose Point of Care 07/31/2024 11:31:57 140 Above high normal 70-120 (mg/dL) Final Performing Location LABORATORY [facility] - [address] [facility] [address]
--- OUTSIDE RECORDS SUMMARY | 2024-11-07 08:06 | External Medical Summary ---
Author Name Unknown Address Unknown Organization K1G:LABORATORY [facility] - [facility]0 [facility] [address] Laboratory Report Ordering Provider Test Date Status NEDA HUGO 07/31/2024 16:51:18 Final Observation Date Value Abnormality Reference (Units ) Status Glucose Point of Care 07/31/2024 16:51:18 132 Above high normal 70-120 (mg/dL) Final Performing Location LABORATORY [facility] - [address] [facility] [address]
--- OUTSIDE RECORDS SUMMARY | 2024-11-07 08:06 | External Medical Summary ---
Author Name Unknown Address Unknown Organization K1G:LABORATORY [facility] - [address] [place] [phone] Laboratory Report Ordering Provider Test Date Status NEDA HUGO 07/30/2024 10:04:05 Final Observation Date Value Abnormality Reference (Units ) Status Glucose Point of Care 07/30/2024 10:04:05 166 Above high normal 70-120 (mg/dL) Final Performing Location LABORATORY [facility] - [address] [facility] [address]
--- OUTSIDE RECORDS SUMMARY | 2024-11-07 08:06 | External Medical Summary ---
Author Name Unknown Address Unknown Organization K1G:LABORATORY [facility] - [facility]0 [facility] [address] Laboratory Report Ordering Provider Test Date Status NEDA HUGO 07/31/2024 21:28:17 Final Observation Date Value Abnormality Reference (Units ) Status Glucose Point of Care 07/31/2024 21:28:17 165 Above high normal 70-120 (mg/dL) Final Performing Location LABORATORY [facility] - [address] [facility] [address]
--- OUTSIDE RECORDS SUMMARY | 2024-11-07 08:06 | External Medical Summary ---
Author Name Unknown Address Unknown Organization K1G:LABORATORY [facility] - [address] [place] [address] [place] [address] Laboratory Report Ordering Provider Test Date Status NEDA HUGO 08/02/2024 06:53:00 Final Observation Date Value Abnormality Reference (Units ) Status BUN 08/02/2024 06:53:00 13 6-20 (mg/dL) Final Creatinine 08/02/2024 06:53:00 0.9 0.6-1.2 (mg/dL) Final Glomerular filtration rate/1.73 sq M.predicted [Volume Rate/Area] in Serum, Plasma or Blood by Creatinine-based formula (CKD-EPI) 08/02/2024 06:53:00 79 >=60 (mL/min) Final eGFR is calculated based on the CKD-EPI 2020 equation. Sodium 08/02/2024 06:53:00 134 Below low normal 135 -146 (mmol/L) Final Potassium 08/02/2024 06:53:00 3.8 3.5-5.1 (m mol/L) Final Cl 08/02/2024 06:53:00 99 98-107 (mm ol/L) Final CO2 08/02/2024 06:53:00 26 22-32 (mmo l/L) Final Anion gap 08/02/2024 06:53:00 9 7-15 (mmol /L) Final Glucose 08/02/2024 06:53:00 156 Above high normal 70 -120 (mg/dL) Final Calcium 08/02/2024 06:53:00 8.9 8.4-10.2 ( mg/dL) Final Performing Location LABORATORY [facility] - [address] [place] [address] [place] [address]
--- OUTSIDE RECORDS SUMMARY | 2024-11-07 08:06 | External Medical Summary ---
Author Name Unknown Address Unknown Organization K1G:LABORATORY [facility] - [address] [place] [address] Laboratory Report Ordering Provider Test Date Status SMITH POWELL 08/01/2024 06:50:00 Final Observation Date Value Abnormality Reference (Units ) Status Magnesium 08/01/2024 06:50:00 2.0 1.5-2.6 (m g/dL) Final Performing Location LABORATORY [facility] - [address] [place] [phone]
--- OUTSIDE RECORDS SUMMARY | 2024-11-07 08:06 | External Medical Summary ---
Author Name Unknown Address Unknown Organization K1G:LABORATORY [facility] - [address] [place] [address] Laboratory Report Ordering Provider Test Date Status NEDA HUGO 08/02/2024 06:53:00 Final Observation Date Value Abnormality Reference (Units ) Status WBC, Total 08/02/2024 06:53:00 9.48 4.00-10.8 0 (K/uL) Final RBC 08/02/2024 06:53:00 4.16 4.50-5.25 (M/uL) Final Hemoglobin 08/02/2024 06:53:00 10.7 Below low normal 14 .0-16.8 (g/dL) Final HCT 08/02/2024 06:53:00 35.0 Below low normal 40. 0-48.4 (%) Final MCV 08/02/2024 06:53:00 84.1 82.0-99.5 (fL) Final MCH 08/02/2024 06:53:00 25.7 27.0-34.0 (pg) Final MCHC 08/02/2024 06:53:00 30.6 32.0-36.0 (g/dL) Final RDW 08/02/2024 06:53:00 18.1 11.5-15.5 (%) Final Platelets 08/02/2024 06:53:00 180 140-400 (K /uL) Final MPV 08/02/2024 06:53:00 12.7 6.6-11.1 ( fL) Final Performing Location LABORATORY [facility] - [address] [place] [phone]
--- OUTSIDE RECORDS SUMMARY | 2024-11-07 08:06 | External Medical Summary ---
Author Name Unknown Address Unknown Organization K1G:LABORATORY [facility] - [facility]0 [facility] [address] Laboratory Report Ordering Provider Test Date Status NEDA HUGO 08/01/2024 16:57:18 Final Observation Date Value Abnormality Reference (Units ) Status Glucose Point of Care 08/01/2024 16:57:18 138 Above high normal 70-120 (mg/dL) Final Performing Location LABORATORY [facility] - [address] [facility] [address]
--- OUTSIDE RECORDS SUMMARY | 2024-11-07 08:06 | External Medical Summary ---
Author Name Unknown Address Unknown Organization K1G:LABORATORY [facility] - [facility]0 [facility] [address] Laboratory Report Ordering Provider Test Date Status NEDA HUGO 08/01/2024 21:28:45 Final Observation Date Value Abnormality Reference (Units ) Status Glucose Point of Care 08/01/2024 21:28:45 160 Above high normal 70-120 (mg/dL) Final Performing Location LABORATORY [facility] - [address] [facility] [address]
--- OUTSIDE RECORDS SUMMARY | 2024-11-07 08:06 | External Medical Summary ---
Author Name Unknown Address Unknown Organization K1G:LABORATORY [facility] - [address] [place] [address] Laboratory Report Ordering Provider Test Date Status NEDA HUGO 07/31/2024 06:55:00 Final Observation Date Value Abnormality Reference (Units ) Status WBC, Total 07/31/2024 06:55:00 9.70 4.00-10.8 0 (K/uL) Final RBC 07/31/2024 06:55:00 3.68 4.50-5.25 (M/uL) Final Hemoglobin 07/31/2024 06:55:00 9.5 Below low normal 14 .0-16.8 (g/dL) Final HCT 07/31/2024 06:55:00 30.7 Below low normal 40. 0-48.4 (%) Final MCV 07/31/2024 06:55:00 83.4 82.0-99.5 (fL) Final MCH 07/31/2024 06:55:00 25.8 27.0-34.0 (pg) Final MCHC 07/31/2024 06:55:00 30.9 32.0-36.0 (g/dL) Final RDW 07/31/2024 06:55:00 17.6 11.5-15.5 (%) Final Platelets 07/31/2024 06:55:00 132 Below low normal 140 -400 (K/uL) Final MPV 07/31/2024 06:55:00 11.9 6.6-11.1 ( fL) Final Performing Location LABORATORY [facility] - [address] [place] [phone]
--- OUTSIDE RECORDS SUMMARY | 2024-11-07 08:06 | External Medical Summary ---
Author Name Unknown Address Unknown Organization K1G:LABORATORY [facility] - [address] [place] [phone] Laboratory Report Ordering Provider Test Date Status SHEA ABREU 07/30/2024 06:46:55 Preliminary Observation Date Value Abnormality Reference (Units) Status Bacteria identified in Specimen by Culture 07/30/2024 06:46:55 No growth to date Preliminary Test: Culture, Blood
Kimberly silevira Source: Blood, Venous
Specimen Type: Blood
Specimen Date: 07/30/202446
Result Date: 08/04/2024 0656
Result Status: Preliminary result
Resulting Lab: LABORATORY [facility]
[address] [place] [address]
[facility] [address]

CULTURE

No growth to date

null Performing Location LABORATORY [facility] - [address] [place] [phone]
--- OUTSIDE RECORDS SUMMARY | 2024-11-07 08:06 | External Medical Summary ---
Author Name Unknown Address Unknown Organization K1G:LABORATORY [facility] - [address] [place] [phone] Laboratory Report Ordering Provider Test Date Status NEDA HUGO 07/31/2024 06:55:00 Final Observation Date Value Abnormality Reference (Units ) Status BUN 07/31/2024 06:55:00 15 6-20 (mg/dL) Final Creatinine 07/31/2024 06:55:00 1.0 0.6-1.2 (mg/dL) Final Glomerular filtration rate/1.73 sq M.predicted [Volume Rate/Area] in Serum, Plasma or Blood by Creatinine-based formula (CKD-EPI) 07/31/2024 06:55:00 76 >=60 (mL/min) Final eGFR is calculated based on the CKD-EPI 2020 equation. Sodium 07/31/2024 06:55:00 133 Below low normal 135 -146 (mmol/L) Final Potassium 07/31/2024 06:55:00 3.9 3.5-5.1 (m mol/L) Final Cl 07/31/2024 06:55:00 97 Below low normal 98- 107 (mmol/L) Final CO2 07/31/2024 06:55:00 26 22-32 (mmo l/L) Final Anion gap 07/31/2024 06:55:00 10 7-15 (mmol /L) Final Glucose 07/31/2024 06:55:00 158 Above high normal 70 -120 (mg/dL) Final Calcium 07/31/2024 06:55:00 8.4 8.4-10.2 ( mg/dL) Final Performing Location LABORATORY [facility] - [address] [place] [address] [place] [address]
--- OUTSIDE RECORDS SUMMARY | 2024-11-07 08:06 | External Medical Summary ---
Author Name Unknown Address Unknown Organization K1G:LABORATORY [facility] - [address] [place] [phone] Laboratory Report Ordering Provider Test Date Status NEDA HUGO 08/01/2024 06:50:00 Final Observation Date Value Abnormality Reference (Units ) Status WBC, Total 08/01/2024 06:50:00 8.13 4.00-10.8 0 (K/uL) Final RBC 08/01/2024 06:50:00 3.77 4.50-5.25 (M/uL) Final Hemoglobin 08/01/2024 06:50:00 9.5 Below low normal 14 .0-16.8 (g/dL) Final HCT 08/01/2024 06:50:00 31.8 Below low normal 40. 0-48.4 (%) Final MCV 08/01/2024 06:50:00 84.4 82.0-99.5 (fL) Final MCH 08/01/2024 06:50:00 25.2 27.0-34.0 (pg) Final MCHC 08/01/2024 06:50:00 29.9 32.0-36.0 (g/dL) Final RDW 08/01/2024 06:50:00 17.9 11.5-15.5 (%) Final Platelets 08/01/2024 06:50:00 130 Below low normal 140 -400 (K/uL) Final MPV 08/01/2024 06:50:00 12.2 6.6-11.1 ( fL) Final Performing Location LABORATORY [facility] - [address] [place] [phone]
--- OUTSIDE RECORDS SUMMARY | 2024-11-07 08:06 | External Medical Summary ---
Author Name Unknown Address Unknown Organization K1G:LABORATORY [facility] - [address] [place] [phone] Laboratory Report Ordering Provider Test Date Status SHEA ABREU 07/30/2024 05:17:00 Final Observation Date Value Abnormality Reference (Units ) Status Lactic Acid, Whole Blood 07/30/2024 05:17:00 2.1 Above high normal 0.4-2.0 (mmol/L) Final Performing Location LABORATORY [facility] - [address] [place] [address] [place] [address]
--- OUTSIDE RECORDS SUMMARY | 2024-11-07 08:06 | External Medical Summary | Summary of Care ---
Author Name Unknown Organization [facility] Address [address] [facility] [address] Phone [phone] Care Team Providers Care Marine Pipefitter Helper Name Role Phone Yury Cash MD Primary Care Provi [facility] Encounter Details Date Type Department Care Team (Late st Contact Info) Description 07/31/2024 Population Health External Data Unspecified Department Allergies No known active allergiesdocumented as of this encounter (statuses as of 07/31/2024) Medications Medication Sig Dispensed Refills Start Date End Date Status aspirin enteric coated 81 MG TBEC Take 1 Tablet by mouth in the morning. 05/14/2016 Suspended ONETOUCH DELICA LANCETS FINE MISC Check blood sugars once daily, E11.9, not using insulin, 100 Each 3 11/24/2018 Suspended Additional Information Multiple Vitamin (ONE-A-DAY MENS) Tablet Take 1 Tablet by mouth in the morning. Suspended OneTouch Ultra Blue In Vitro Strip (Glucose Blood) USE 1 STRIP TO CHECK GLUCOSE ONCE DAILY, dx E11.40 100 Strip 3 10/04/2021 Suspended Additional Information Allopurinol 300 MG Oral Tablet (Zyloprim) TAKE ONE TABLET BY MOUTH EVERY DAY 90 Tablet 3 11/17/2023 5 Suspended Additional Information Patient taking differently: 300 [...] Additional Information Gabapentin 600 MG Oral Tablet (Neurontin)Indicat ions:Type 2 diabetes mellitus with diabetic neuropathy, without long-term current use of insulin (HCC) TAKE ONE TABLET BY MOUTH THREE TIMES A DAY 270 Tablet 1 01/10/2024 5 Suspended Additional Information Myrbetriq 50 MG Oral Tablet Extended Release 24 Hour Take 1 Tablet by mouth in the morning. In the morning.. 11/19/2023 Suspended EnvironmentIQ Ultra 2 w/Device Kit Check blood sugars once daily 1 Kit 01/31/2024 Suspended Additional Information Metoprolol Succinate ER 50 MG Oral Tablet Extended Release 24 Hour (toPROL XL)Indications:Par oxysmal A-fib (HCC) TAKE ONE TABLET BY MOUTH EVERY DAY AT NOON 90 Tablet 3 02/15/2024 5 Suspended Additional Information traMADol HCl 50 MG Oral Tablet (Ultram)Indication s:Chronic foot pain, left,Bilateral sacroiliitis (HCC),Sacral back pain Take 1 Tablet by mouth every 6 hours as needed for Pain, Moderate or Pain, Severe. 40 Tablet 04/13/2024 Suspended Additional Information Patient not taking.Reported on 07/30/2024 B-12 500 MCG Oral Tablet Take 1 Tablet by mouth every morning. Suspended Iron-Vitamin C 65-125 MG Oral Tablet (Vitron C) Take 1 Tablet by mouth in the morning. Suspended Atorvastatin Calcium 40 MG Oral Tablet (Lipitor)Indicatio ns:Dyslipidemia, goal LDL below 100 TAKE ONE TABLET BY MOUTH EVERY DAY 100 Tablet 1 07/16/2024 Suspended Additional Information predniSONE 10 MG Oral Tablet (Deltasone)Indicat ions:Acute gout involving toe of left foot, unspecified cause Take 5 tabs for 2 days, 4 tabs for 2 days, 3 tabs for 2 days, 2 tabs for 2 days 1 tab for 2 days 30 Tablet 07/19/2024 Suspended Additional Information documented as of this encounter (statuses as of 07/31/2024) Active Problems Problem Noted Date Diagnosed Date [...] to breakdown of skin 09/27/2023 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 02/09/2023 [...] (AAA) without rupture 06/06/2020 Unspecified atherosclerosis of algaaciq arteries of extremities, bilateral legs 02/15/2019 Type [...] melanoma of skin 08/16/2011 Overview: Back - 1989', no SLN, unknown depth Hyperlipidemia associated with type 2 diabetes m norris 09/11/2010 After cataract not obscuring vision 04/07/2009 Overview: ICD-10 update of inactive term documented as of this encounter (statuses as of 07/31/2024) Resolved Problems Problem Noted Date Diagnosed Date Resolved Date Cellulitis of left lower extremity 12/23/2021 12/25/2023 Type 2 diabetes mellitus wit h hemoglobin A1c goal of less than 7.5% 11/14/2019 01/14/2021 Skin ulcer of toe of left fo ot, limited to breakdown of skin 10/13/2018 02/15/2019 Coronary artery disease invo lving algaaciq heart without angina pectoris 06/01/2018 11/10/2021 DM type 2 causing neurological disease 01/24/2018 01/14/2021 Type 2 diabetes mellitus wit h diabetic nephropathy, without long-term current use of insulin 09/08/2017 09/08/2017 Atherosclerotic heart diseas e of algaaciq coronary artery with unspecified angina pectoris 09/08/2017 [...] as of this encounter (statuses as of 07/31/2024) Immunizations Name Administration Dates Next Due COVID-19 mRNA, LNP-s, No Pre serve, 2-Dose Series (OneSource Virtual) 08/13/2021,01/22/2021,12/27/2020 Covid-19, Mrna, Lnp-s, Pf, B ivalent, 30 Mcg, IM, 12 yrs and above (One[employer] Virtual) 11/09/2022 Pneumococcal Conjugate Vacc, 13 Valent (Prevnar) 04/21/2015 Pneumococcal Polysaccharide PPV23 (Pneumovax) 09/07/2010 Season Influenza, Quad, PF, Adjuvanted, 65+ Yrs, IM (FLUAD) 07/12/2020 Seasonal Influenza, High Dos e, Trivalent, PF, IM (Fluzone HD) 07/19/2024 Seasonal Influenza, PF, 6 M & above, IM , (FluLaval or Fluzone) 09/08/2017 Seasonal Influenza, Quadriva lent Hd (Fluzone Hd) 07/13/2023,07/02/2022 Seasonal Influenza, Quadriva lent, No Preserve, IM 07/27/2018,09/15/2015 Seasonal Influenza, Trivalen t, (IIV3), with Preserv, (Fluzone) 07/07/2016,09/16/2014,08/22/2013,08/07,07/12/2011,09/07/2010 Seasonal Influenza, Trivalen t, Adjuvanted, 65+ YRS, [...] No 02/21/2024 Does the household have a [facility] source of income? (Household - for [...] Upcoming Encounters Date Type Department Care Team ([facility] st Contact Info) Description 08/06/2024 9:00 AM EDT Nurse Only Ancillary [facility] [address] [place] [phone] Radha, Nurse Annual Wellness [address] [place] [address] 10/25/2024 7:00 AM EST Laboratory [facility] [place] [address] [place] [address] Have, Lab [facility] [address] [place] [address] 11/01/2024 11:40 AM EST Office Visit [facility] [address] [place] [address] Yury Cash MD [address] [place] [phone] 11/21/2024 8:30 AM EST Office Visit Cardiology, [facility] [address] [place] [address] Sajan Griffith PA-C [address] [place] [address] 05/29/2025 9:45 AM EDT Office [facility] [address] [place] [address] Constantino Weber DO [address] [place] [address] Health Maintenance Due Date Last Done Comments Adult Wellness Visit 2002 Colonoscopy 01/20/2016 01/19/2011, 12/29, 01/07/2011, Additional history exists Albumin/Creatinine Ratio 05/07/2023 022, 04/11/2021, 05/28/2020, Additional history exists Diabetic Foot Exam 06/08/2024 06/08/2023, 1 , 11/10/2021, Additional history exists COVID-19 Vaccine ( season) 2024 11/09/2022, 08/13/2021, 01/22/2021, Additional history exists HbA1c 01/16/2025 07/19/2024, 01/29, 02/10/2024, Additional history exists CKD PHOS USE SMARTSET 24796 02/09/202501/29, 02/10/2024, 01/06/2024, Additional history exists Depression Screening 04/24/2025 04/24/2024, 04/21/20 15 B-12 05/17/2025 05/17/2024, 05/0 05/2024, 07/07/2023, Additional history exists Diabetic Eye Exam 06/18/2025 06/18/2024, , 05/25/2024, Additional history exists CKD HGB USE SMARTSET 58770 07/31/202507/31, 07/30/2024, 07/30/2024, Additional history exists DTap/Tdap Vaccines (3 - [...] the patient have Health Care Power of Textile Engineer? Yes, not currently available Care Teams Marine Pipefitter Helper Relationship Specialty Start Date End Date Yury Cash MD [address] [place] [phone] PCP - General Family Medicine 07/19/24 documented as of this encounter
--- OUTSIDE RECORDS SUMMARY | 2024-11-07 08:06 | External Medical Summary ---
Author Name Unknown Address Unknown Organization K01:LABORATORY [facility] - [address] [place] [address] Laboratory Report Ordering Provider Test Date Status SMITH POWELL 08/01/2024 10:07:00 Final Recommended trough therapeut ic ranges:
0.5 to 0.8 for heart failure
0.5 to 1.1 for atrial fibrillation Observation Date Value Abnormality Reference (Units ) Status Digoxin 08/01/2024 10:07:00 <0.4 Below low normal 0.5 -1.1 (ng/mL) Final Performing Location LABORATORY [facility] - [address] [place] [address]
--- OUTSIDE RECORDS SUMMARY | 2024-11-07 08:06 | External Medical Summary ---
Author Name Unknown Address Unknown Organization K1G:LABORATORY [facility] - [address] [place] [phone] Laboratory Report Ordering Provider Test Date Status NEDA HUGO 08/01/2024 07:55:34 Final Observation Date Value Abnormality Reference (Units ) Status Glucose Point of Care 08/01/2024 07:55:34 122 Above high normal 70-120 (mg/dL) Final Performing Location LABORATORY [facility] - [address] [facility] [phone]
--- OUTSIDE RECORDS SUMMARY | 2024-11-07 08:06 | External Medical Summary | Summary of Care ---
Author Name Unknown Organization [facility] Address [address] [place] [address] Phone [phone] Care Team Providers Care It Security Consultant Name Role Phone Yury Cash MD Primary Care [facility] Reason for Visit * Reason Onset Date Comments Home Health 08/02/2024 Encounter Details Date Type Department Care Team ([facility] Contact Info) Description 08/02/2024 Telephone Family [facility] [address] [place] [phone] Yury Cash MD [address] [place] [phone] Home Health Allergies No known active [...] MOUTH EVERY DAY 90 Tablet 3 11/17/2023 Suspended Additional Information Patient taking differently: 300 [...] neuropathy, without long-term current use of insulin ([facility]) TAKE ONE TABLET BY MOUTH THREE TIMES A DAY 270 Tablet 1 01/10/2024 5 Suspended Additional Information Myrbetriq 50 MG Oral Tablet Extended Release 24 Hour Take 1 Tablet by mouth in the morning. In the morning.. 11/19/2023 Suspended Kids Movie 2 w/Device Kit Check blood sugars once [...] (AAA) without rupture 06/06/2020 Unspecified atherosclerosis of [place] arteries of extremities, bilateral legs 02/15/2019 Type [...] mRNA, LNP-s, No Pre serve, 2-Dose Series ([place]) 08/13/2021,01/22/2021,12/27/2020 Covid-19, Mrna, Lnp-s, Pf, B ivalent, 30 Mcg, IM, 12 yrs and above ([place]) 11/09/2022 Pneumococcal Conjugate Vacc, 13 Valent (Prevnar) [...] Telephone Encounter - Maru Thomas LPN - 08/02/2024 12:04 PM EDT HH Admission/Start of Care Admission/Start of Care: Marilee Almendarez from: [facility] Patient was Admitted to: [facility], for: A Fib with RVR from 07/30 to present Referral ordered by: [facility] Referral received for: Fpc, PT, and OT Planned start of care date:Yes, Date within 48 hours of discharge Start of care completed on: No Report/Concerns of:NA They will call with any updates or additional concerns from the upcoming HH visit. Last Office Visit: 07/19/2024 Has patient been scheduled or seen in the office for a follow up visit: Yes- on08/14 Advised that orders will be signed by Yury Cash MD and to fax to the office for signature. documented in this encounter Plan of Treatment Upcoming Encounters Date Type Department Care Team ([facility] Contact Info) Description 08/06/2024 9:00 AM EDT Nurse Only Ancillary [address] [phone] Radha, Nurse Annual Wellness [address] [address] 08/14/2024 9:00 AM EDT Office Visit [address] [phone] Yury Cash MD [address] [place] [phone] 10/25/2024 7:00 AM EST Laboratory [facility], [address] [phone] [facility] [address] [address] 11/01/2024 11:40 AM EST Office Visit [address] [phone] Yury Cash MD [address] [place] [phone] 11/21/2024 8:30 AM EST Office Visit Cardiology, [facility] [address] [place] [address] Sajan Griffith PA-C [address] [place] [address] 05/29/2025 9:45 AM EDT Office Visit [facility] [address] [place] [address] Constantino Weber DO [address] [place] [address] Health Maintenance Due Date Last Done Comments Adult Wellness Visit 2002 Colonoscopy 01/20/2016 01/19/2011, 12/29, 01/07/2011, Additional history exists Albumin/Creatinine Ratio 05/07/2023 022, 04/11/2021, 05/28/2020, Additional history exists Diabetic Foot Exam 06/08/2024 06/08/2023, 1 , 11/10/2021, Additional history exists COVID-19 Vaccine ( season) 2024 11/09/2022, 08/13/2021, 01/22/2021, Additional history exists HbA1c 01/16/2025 07/19/2024, 01/29, 02/10/2024, Additional history exists CKD PHOS USE SMARTSET 54362 02/09/202501/29, 02/10/2024, 01/06/2024, Additional history exists Depression Screening 04/24/2025 04/24/2024, 04/21/20 15 B-12 05/17/2025 05/17/2024, 05/0 05/2024, 07/07/2023, Additional history exists Diabetic Eye Exam 06/18/2025 06/18/2024, , 05/25/2024, Additional history exists CKD HGB USE SMARTSET 23663 08/02/202508/02, 08/01/2024, 07/31/2024, Additional history exists DTap/Tdap [...] the patient have Health Care Power of Motor Driver? Yes, not currently available Care Teams It Security Consultant Relationship Specialty Start Date End Date Yury Cash MD [address] [place] [phone] PCP - General Family Medicine 07/19/24 documented as of this encounter
--- OUTSIDE RECORDS SUMMARY | 2024-11-07 08:06 | External Medical Summary ---
Author Name Unknown Address Unknown Organization K1G:[facility] - [address] [place] [id number] Laboratory Report Ordering Provider Test Date Status SHEA ABREU 07/30/2024 06:42:33 Final Observation Date Value Abnormality Reference (Units ) Status Troponin T 07/30/2024 06:42:33 174 Above upper panic limits <=22 (ng/L) Final Performing Location [facility] - [address] [place] [phone]
--- OUTSIDE RECORDS SUMMARY | 2024-11-07 08:06 | External Medical Summary ---
Author Name Unknown Address Unknown Organization K1G:[facility] - [address] [place] [address] [place] [id number] Laboratory Report Ordering Provider Test Date Status SMITH POWELL 07/31/2024 22:22:00 Final Observation Date Value Abnormality Reference (Units ) Status Troponin T 07/31/2024 22:22:00 116 Above upper panic limits <=22 (ng/L) Final Performing Location [facility] - [address] [place] [address] [place] [id number]
--- OUTSIDE RECORDS SUMMARY | 2024-11-07 08:07 | External Medical Summary | Summary of Care ---
Author Name Unknown Organization [facility] Address [address] [place] [address] Phone [phone] Care Team Providers Care Magnetizer Name Role Phone Yury Cash MD Primary Care [facility] Reason for Visit * Reason Onset Date Comments Follow Up Pt is present to day for a 3 mos follow up.Pt states there is no concerns today. Medication Administration 07/19/2024 Flu an d/or Pneumo Inj Encounter Details Date Type Department Care Team ([facility] Contact Info) Description 07/19/2024 10:20 AM EDT Office Visit [address] [phone] Yury Cash MD [address] [place] [phone] Need for prophylactic vaccination and inoculation against influenza*; Type 2 diabetes mellitus with diabetic neuropathy, without long-term current use of insulin (HCC); Hyperlipidemia associated with type 2 diabetes mellitus (HCC); Paroxysmal atrial fibrillation (HCC); Abdominal aortic aneurysm (AAA) without rupture, unspecified part (HCC); PVD (peripheral vascular disease) ([facility]); Acute gout involving toe of left foot, unspecified cause Allergies No known active allergiesdocumented as of this encounter (statuses as of 07/19/2024) Medications Medication Sig Dispensed Refills Start Date End Date Status aspirin enteric coated 81 MG TBEC Take 1 Tablet by mouth in the morning. 05/14/2016 Active ONETOUCH DELICA LANCETS FINE MISC Check blood sugars once daily, E11.9, not using insulin, 100 Each 3 11/24/2018 Active Multiple Vitamin (ONE-A-DAY MENS) Tablet Take 1 Tablet by mouth in the morning. Active ButtonTouch Ultra Blue In Vitro Strip (Glucose Blood) [...] 01/10/2024 Active Gabapentin 600 MG Oral Tablet (Neurontin)Indicati ons:Type 2 diabetes mellitus with diabetic neuropathy, without long-term current use of insulin (HCC) TAKE ONE TABLET BY MOUTH THREE TIMES A DAY 270 Tablet 1 01/10/2024 01/09/2025 Active Myrbetriq 50 MG Oral Tablet Extended Release 24 Hour Take 1 Tablet by mouth in the morning. In the morning.. 11/19/2023 Active ButtonTouch Ultra 2 w/Device Kit Check blood sugars once daily 1 Kit 01/31/2024 Active Metoprolol Succinate ER 50 MG Oral Tablet Extended Release 24 Hour (toPROL XL)Indications:Paro xysmal A-fib (HCC) TAKE ONE TABLET BY MOUTH EVERY DAY AT NOON 90 Tablet 3 02/15/2024 02/14/2025 Active traMADol HCl 50 MG Oral Tablet (Ultram)Indications :Chronic foot pain, left,Bilateral sacroiliitis (HCC),Sacral back pain Take 1 Tablet by mouth every 6 hours as needed for Pain, Moderate or Pain, Severe. 40 Tablet 04/13/2024 Active B-12 500 MCG Oral Tablet Take 1 Tablet by mouth every morning. Active Iron-Vitamin C 65-125 MG Oral Tablet (Vitron C) Take 1 Tablet by mouth in the morning. Active Atorvastatin Calcium 40 MG Oral Tablet (Lipitor)Indication s:Dyslipidemia, goal LDL below 100 TAKE ONE TABLET BY MOUTH EVERY DAY 100 Tablet 1 07/16/2024 Active predniSONE 10 MG Oral Tablet (Deltasone)Indicati ons:Acute gout involving toe of left foot, unspecified cause Take 5 tabs for 2 days, 4 tabs for 2 days, 3 tabs for 2 days, 2 tabs for 2 days 1 tab for 2 days 30 Tablet 07/19/2024 Active documented as of this encounter (statuses as of 07/19/2024) Active Problems Problem Noted Date Diagnosed Date Physical deconditioning 12/27/2023 Ambulatory dysfunction 12/27/2023 Elevated [...] to breakdown of skin 09/27/2023 Atherosclerosis of apache co ronary artery without angina pectoris 02/09/2023 [...] (AAA) without rupture 06/06/2020 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, bilateral legs 02/15/2019 Type [...] Back - 1989's, no SLN, unknown depth Hyperlipidemia associated with type 2 diabetes m norris 09/11/2010 After cataract not obscuring vision 04/07/2009 Overview: ICD-10 update of inactive term documented as of this encounter (statuses as of 07/19/2024) Resolved Problems Problem Noted Date Diagnosed Date Resolved Date Cellulitis of left lower extremity 12/23/2021 12/25/2023 Type 2 diabetes mellitus wit h hemoglobin A1c goal of less than 7.5% 11/14/2019 01/14/2021 Skin ulcer of toe of left fo ot, limited to breakdown of skin 10/13/2018 02/15/2019 Coronary artery disease invo lving apache heart without angina pectoris 06/01/2018 11/10/2021 DM type 2 causing neurological disease 01/24/2018 01/14/2021 Type 2 diabetes mellitus wit h diabetic nephropathy, without long-term current use of insulin 09/08/2017 09/08/2017 Atherosclerotic heart diseas e of apache coronary artery with unspecified angina pectoris 09/08/2017 [...] as of this encounter (statuses as of 07/19/2024) Immunizations Name Administration Dates Next Due COVID-19 mRNA, LNP-s, No Pre serve, 2-Dose Series ([facility]) 08/13/2021,01/22/2021,12/27/2020 Covid-19, Mrna, Lnp-s, Pf, B ivalent, 30 Mcg, IM, 12 yrs and above ([facility]) 11/09/2022 Pneumococcal Conjugate Vacc, 13 Valent (Prevnar) [...] have concerns for your saf ety? No 02/21/2024 Do you have concerns for you r family's safety? (Household - for ages 0-17 years) Not on file 02/21/2024 Utilities Answer Date Recorded Do you have trouble paying y our heating, water, or electric bill? No 02/21/2024 Is your family able to pay t he heat, water, or electric bill? (Household - for ages 0-17 years) Not on file 02/21/2024 Does your family have access to good internet? (Household - for ages 0-17 years) Not on file 02/21/2024 Employment Status Answer Date Recorded Are you unemployed or without regular income? No 02/21/2024 Does the household have a [facility] source of income? (Household - [...] to medical visits or work? Never True 02/21/2024 Does your family have a hard time getting a ride to doctors visits? (Household - for ages 0-17 years) Not on file 02/21/2024 Has lack of transportation k ept you from medical appointments, meetings, work, or from getting things needed for daily living? Check all that apply. (Adult - for ages 18 years and over) Not on file 02/21/2024 Do you (or your family) have trouble finding or paying for a ride (transportation)? (Household - for ages 0-17 years) Not on file 02/21/2024 Housing Stability Answer Date Recorded Do you currently live in a s helter or have no steady place to sleep at night? No 02/21/2024 READ ONLY Do you think you a re at risk of becoming homeless? No 02/21/2024 Does your family worry about paying for your home or becoming homeless? (Household - for ages 0-17 years) Not on file 0 02/21/2024 Are you homeless or worried that you might be in the future? (Adult - for ages 18 years and over) Not on file Are you (or your family) roxy eless or worried that you might be in the future? (Household - for ages 0-17 years) Not on file Food Insecurity Answer Date Recorded Do you need food for this week? No 02/21/2024 Are you able to get enough f ood for your family? (Household - for ages 0-17 years) Not on file 02/21/2024 Does your family need food t his week? (Household - for ages 0-17 years) Not on file 02/21/2024 Do you always have enough fo od for your family? (Household - for ages 0-17 years) Not on file 02/21/2024 Sex and Gender Information Value Date Recorded Sex Assigned at Male 02/15/2019 10:31 AM EDT Gender Identity Male 02/15/2019 10:31 AM EDT Sexual Orientation Not on file Job Start Date Occupation Industry Not on file Not on file Not on file documented as of this encounter Last Filed Vital Signs Vital Sign Reading Time Taken Comments Blood Pressure 134/72 07/19/2024 10:21 AM EDT Pulse 75 07/19/2024 10:21 AM EDT Temperature 36.6 C (97.9 F) 07/19/2024 10:21 AM E DT Respiratory Rate 18 07/19/2024 10:21 AM EDT Oxygen Saturation 95% 07/19/2024 10:21 AM EDT Inhaled Oxygen Concentration - - Weight 98.6 kg (217 lb 6.4 oz) 07/19/2024 10:21 AM EDT Height - - Body Mass Index 31.19 04/25/2024 9:18 AM EDT documented in this encounter Functional Status Functional Status Response Date of Assess ment Are you deaf or do you have serious difficulty h earing? No 12/27/2023 Are you blind or do you have serious difficulty seeing, even when wearing glasses? No 12/27/2023 Do you have serious difficul ty walking or climbing stairs? (5 years old or older) No 12/27/2023 Do you have difficulty dress ing or bathing? (5 years old or older) No 12/27/2023 Because of a physical, menta l, or emotional condition, do you have difficulty doing errands alone such as visiting a doctor s office or shopping? (15 years old or older) No 12/27/19 Cognitive Status Response Date of Assessm ent Because of a physical, menta l, or emotional condition, do you have serious difficulty concentrating, remembering, or making decisions? (5 years old or older) No 12/27/2023 documented as of this encounter Progress Notes * Carmen Herr CCMA - 07/19/2024 11:14 AM EDT Pre-Administration Time Out Procedure Performed: Yes Patient Identified (Ask Name/Date of ): Yes Does the patient have a fever greater than 101 degrees today? No Patient allergic to latex? No Has the patient ever fainted after receiving an injection? No VFC Stock: No Immunization(s) verified: Yes, Immunization Name: Flu, VIS Sheet(s) given: Yes Verified Side and Site: Yes Verified Shot(s) with Parent(s)/Patient: Yes * Yury Cash MD - 07/19/2024 10:43 AM EDT Images from the original note were not included. History of Present Illness Gomez Suaerz is a 88 year old male that presents for Follow Up (Pt is present today for a 3 mos follow up./Pt states there is no concerns today. ) and Medication Administration (Flu and/or Pneumo Inj) 88-year-old male establishing care today Type 2 diabetes, A1c today 7.1 percent Patient does note that he has some redness and swelling of his right big toe, commonly gets gout flares in that toe. He is on allopurinol. Typically takes steroid medications for his flares Does have some weakness, uses a walker and a cane at home. He does have occasional falls, but has declined physical therapy because of out of pocket cost for co-pay Medical history includes-- Coronary artery disease status post drug-eluting stent placement to the mid-RCA at [facility] in May 2016 . Has follow-up with Cardiology AAA Enlarged aortic root 4.5 cm via December 2023 resting echocardiogram 5.0 cm ascending aortic aneurysm via December 2023 Peripheral vascular disease, status post right popliteal to common plantar bypass grafting in January2024. Followed by [facility] Physical Exam Vitals: 07/19/24 1021 Temp: 36.6 C (97.9 F) Pulse: 75 Resp: 18 SpO2: 95% BP: 134/72 BP Readings from Last 3 Encounters: 07/19/24 134/72 05/17/24 130/80 04/25/24 132/78 Wt Readings from Last 3 Encounters: 07/19/24 98.6 kg (217 lb 6.4 oz) 05/17/24 99.3 kg (219 lb) 04/25/24 97 kg (213 lb 14.4 oz) BMI Readings from Last 3 Encounters: 07/19/24 31.19 kg/m 05/17/24 31.42 kg/m 04/25/24 30.69 kg/m Ht Readings from Last 3 Encounters: 04/25/24 1.778 m (5' 10") 12/27/23 1.778 m (5' 10") 12/22/23 1.778 m (5' 10") General; Normal cephalic, atraumatic Cardiology; Regular rate and rhythm, normal S1 S2, no murmurs, rubs or gallops, no peripheral edema Pulmonary; Clear to auscultation bilaterally, no rales, rhonchi or wheezing Neuro/psych; CN grossly intact, normal gait, answering questions appropriately, normal mood/affect I have reviewed the following results: CMP, Lipid Panel, Hemoglobin A1C, and CBC Assessment and Plan Need for prophylactic vaccination and inoculation against influenza (Primary) - INFLUENZA VAC., TRIVALENT, HD, PF, 65 AND ABOVE, 0.5 ML IM (FLUZONE HD) Type 2 diabetes mellitus with diabetic neuropathy, without long-term current use of insulin (HCC) - HEMOGLOBIN A1C; Future; Expected date: 10/18/2024 - COMPREHENSIVE METABOLIC PANEL; Future; Expected date: 10/18/2024 - HEMOGLOBIN A1C, POINT OF CARE Hyperlipidemia associated with type 2 diabetes mellitus (HCC) - COMPREHENSIVE METABOLIC PANEL; Future; Expected date: 10/18/2024 Paroxysmal atrial fibrillation (HCC) - CBC WITH WBC DIFFERENTIAL; Future; Expected date: 10/18/2024 Abdominal aortic aneurysm (AAA) without rupture, unspecified part (HCC) PVD (peripheral vascular disease) (HCC) Acute gout involving toe of left foot, unspecified cause - predniSONE 10 MG Oral Tablet (Deltasone); Take 5 tabs for 2 days, 4 tabs for 2 days, 3 tabs for 2days, 2 tabs for 2 days 1 tab for 2 days Follow Up: Return in about 3 months (around 10/18/2024) for Return with Physician, Labs 2-5 Days Before Next Visit. | For: Return with Physician, Labs 2-5 Days Before Next Visit Reviewed past medical history with establishing care today Treating gout flare Continue follow-up with Cardiology, Vascular Surgery A1c was 7.1 percent within goal today Discussed patient with Case Management, they will be checking in if we can get a lower co-pay with home health physical therapy Wrap-Up Follow Up: Return in about 3 months (around 10/18/2024) for Return with Physician, Labs 2-5 Days Before Next Visit. | For: Return with Physician, Labs 2-5 Days Before Next Visit Time: I spent a total of 40-54 minutes (exact time 43 mins) on the date of service in preparation, delivery, and documentation of the care provided to Gomez Suarez excluding any time spent in the performance of separately billed services. documented in this encounter Nursing Notes * Carmen Herr CCMA - 07/19/2024 10:21 AM EDT The patient has been properly identified by confirmation of name and date of . Chief Complaint Patient presents with Follow Up Pt is present today for a 3 mos follow up. Pt states there is no concerns today. Pt agreed to a flu injection. documented in this encounter Plan of Treatment Upcoming Encounters Date Type Department Care Team (Late st Contact Info) Description 08/06/2024 9:00 AM EDT Nurse Only Ancillary [address] [phone] [facility] [address] [place] [phone] 10/25/2024 7:00 AM EST Laboratory [facility], [address] [phone] [place], Lab Lock [address] [place] [phone] 11/01/2024 11:40 AM EST Office Visit [address] [phone] Yury Cash MD [address] [place] [phone] 11/21/2024 8:30 AM EST Office Visit Cardiology, [facility] [address] [facility] [place] [address] Sajan Griffith PA-C [address] [place] [address] 05/29/2025 9:45 AM EDT [facility] Visit [facility] [address] [place] [address] Constantino Weber DO [address] [place] [address] Scheduled Orders Name Type Priority Associated Diagnoses Orde r Schedule HEMOGLOBIN A1C Lab Routine Type 2 diabetes mellitus with diabetic neuropathy, without long-term current use of insulin (HCC) Expected: 10/18/2024 (Approximate), Expires: 07/19/2025 COMPREHENSIVE METABOLIC PANEL Lab Routine Type 2 diabetes mellitus with diabetic neuropathy, without long-term current use of insulin (HCC) Hyperlipidemia associated with type 2 diabetes mellitus (HCC) Expected: 10/18/2024 (Approximate), Expires: 07/19/2025 CBC WITH WBC DIFFERENTIAL Lab Routine Paroxysmal atrial fibrillation (HCC) Expected: 10/18/2024 (Approximate), Expires: 07/19/2025 Health Maintenance Due Date Last Done Comments Adult Wellness Visit 2002 Colonoscopy 01/20/2016 01/19/2011, 12/29, 01/07/2011, Additional history exists Albumin/Creatinine Ratio 05/07/2023 022, 04/11/2021, 05/28/2020, Additional history exists Diabetic Foot Exam 06/08/2024 06/08/2023, 1 , 11/10/2021, Additional history exists COVID-19 Vaccine ( season) 2024 11/09/2022, 08/13/2021, 01/22/2021, Additional history exists HbA1c 01/16/2025 07/19/2024, 01/29, 02/10/2024, Additional history exists CKD PHOS USE SMARTSET 59284 02/09/202501/29, 02/10/2024, 01/06/2024, Additional history exists Depression Screening 04/24/2025 04/24/2024, 04/21/20 15 B-12 05/17/2025 05/17/2024, 05/0 05/2024, 07/07/2023, Additional history exists CKD HGB USE SMARTSET 22308 05/17/202505/17, 03/07/2024, 03/07/2024, Additional history exists Diabetic Eye Exam 06/18/2025 06/18/2024, , 05/25/2024, Additional history exists DTap/Tdap Vaccines (3 - [...] Procedure Name Priority Date/Time Associated Diagnosis Comments HEMOGLOBIN A1C, POINT OF CARE Routine 07/19/2024 11:07 AM EDT Type 2 diabetes mellitus with diabetic neuropathy, without long-term current use of insulin (HCC) documented in this encounter Results * (ABNORMAL) HEMOGLOBIN A1C, POINT OF CARE (07/19/2024 11:07 AM EDT) Hemoglobin A1c 7.1(H) 4.0 - 5.6 % 07/19/2024 11:19 AM EDT [facility] Blood 07/19/2024 11:0 7 AM EDT 07/19/2024 11:19 AM EDT Yury Cash MD LAB POINT O F CARE TEST DOCKED DEVICE UNSOLICITED RESULTS [facility] [address] [place] [address] documented in this encounter Visit Diagnoses Diagnosis Need for prophylactic vaccination and inoculation against influenza- Primary Type 2 diabetes mellitus with diabetic neuropathy, without long-term current use of insulin (HCC) Hyperlipidemia associated with type 2 diabetes mellitus (HCC) Paroxysmal atrial fibrillation (HCC) Atrial fibrillation Abdominal aortic aneurysm (AAA) without rupture, unspecified part (HCC) PVD (peripheral vascular disease) (HCC) Peripheral vascular disease, unspecified Acute gout involving toe of left foot, unspecified cause documented in this encounter Advance Directives * Full Code (Latest Code Status on File) Date Activated Date Inactivated Comments 12/27/2023 11:32 [...] the patient have Health Care Power of Air Conditioning [employer]? Yes, not currently available Care Teams Magnetizer Relationship Specialty Start Date End Date Yury Cash MD [address] [place] [phone] PCP - General Family Medicine 07/19/24 documented as of this encounter
--- OUTSIDE RECORDS SUMMARY | 2024-11-07 08:07 | External Medical Summary ---
Author Name Unknown Address Unknown Organization K1G:LABORATORY [facility] - [address] [place] [phone] Laboratory Report Ordering Provider Test Date Status SHEA ABREU 07/30/2024 05:17:00 Final Observation Date Value Abnormality Reference (Units ) Status Lipase 07/30/2024 05:17:00 17 13-60 (U/L ) Final Performing Location [facility] - [address] [place] [phone]
--- OUTSIDE RECORDS SUMMARY | 2024-11-07 08:07 | External Medical Summary ---
Author Name Unknown Address Unknown Organization K1G:[facility] - [address] [facility] [place] [id number] Laboratory Report Ordering Provider Test Date Status SHEA ABREU 07/30/2024 05:17:00 Final Observation Date Value Abnormality Reference (Units ) Status BUN 07/30/2024 05:17:00 23 Above high normal 6-20 (mg/dL) Final Creatinine 07/30/2024 05:17:00 0.9 0.6-1.2 (mg/dL) Final Glomerular filtration rate/1.73 sq M.predicted [Volume Rate/Area] in Serum, Plasma or Blood by Creatinine-based formula (CKD-EPI) 07/30/2024 05:17:00 79 >=60 (mL/min) Final eGFR is calculated based on the CKD-EPI 2020 equation. Sodium 07/30/2024 05:17:00 139 135-146 (m mol/L) Final Potassium 07/30/2024 05:17:00 4.5 3.5-5.1 (m mol/L) Final Cl 07/30/2024 05:17:00 99 98-107 (mm ol/L) Final CO2 07/30/2024 05:17:00 26 22-32 (mmo l/L) Final Anion gap 07/30/2024 05:17:00 14 7-15 (mmol /L) Final Glucose 07/30/2024 05:17:00 181 Above high normal 70 -120 (mg/dL) Final Albumin 07/30/2024 05:17:00 4.0 3.8-5.0 (g /dL) Final AST (Aspartate aminotransferase) 07/30/2024 05:17:00 34 10-50 (U/L) Fin al Alk Phos 07/30/2024 05:17:00 83 35-130 (U/ L) Final Bilirubin, Total 07/30/2024 05:17:00 0.7 <=1 .2 (mg/dL) Final Calcium 07/30/2024 05:17:00 9.3 8.4-10.2 ( mg/dL) Final Protein 07/30/2024 05:17:00 7.1 6.0-8.3 (g /dL) Final ALT (Alanine aminotransferase) 07/30/2024 05:17:00 53 Above high normal 10-50 (U/L) Final Performing Location [facility] - [address] [place] [id number]
--- OUTSIDE RECORDS SUMMARY | 2024-11-07 08:07 | External Medical Summary | Summary of Care ---
Author Name Unknown Organization [facility] Address [address] [place] [address] Phone [phone] Care Team Providers Care Application Architect Manager Name Role Phone Yury Pierre MD Primary Care [facility] Reason for Visit * Reason Onset Date Comments Follow Up Pt is present to day for a 3 mos follow up.Pt states there is no concerns today. Medication Administration 07/19/2024 Flu an d/or Pneumo Inj Encounter Details Date Type Department Care Team ([facility] Contact Info) Description 07/19/2024 10:20 AM EDT Office Visit [address] [phone] Yury Pierre MD [address] [place] [phone] Need for prophylactic vaccination and inoculation against influenza*; Type 2 diabetes mellitus with diabetic neuropathy, without long-term current use of insulin (HCC); Hyperlipidemia associated with type 2 diabetes mellitus (HCC); Paroxysmal atrial fibrillation (HCC); Abdominal aortic aneurysm (AAA) without rupture, unspecified part (HCC); PVD (peripheral vascular disease) ([facility]); Acute gout involving toe of [...] Tablet by mouth in the morning. Active WikiswayTouch Ultra Blue In Vitro Strip (Glucose Blood) [...] the morning. In the morning.. 11/19/2023 Active WikiswayTouch Ultra 2 w/Device Kit Check blood sugars once daily 1 Kit 01/31/2024 Active Metoprolol Succinate ER 50 MG Oral Tablet Extended Release 24 Hour (toPROL XL)Indications:Pa roxysmal A-fib (HCC) TAKE ONE TABLET BY MOUTH EVERY DAY AT NOON 90 Tablet 3 02/15/2024 02/15/20 25 Active traMADol HCl 50 MG Oral Tablet (Ultram)Indicatio [...] 07/16/2024 Active predniSONE 10 MG Oral Tablet (Deltasone)Indica tions:Acute gout involving toe of left foot, unspecified cause Take 5 tabs for 2 days, 4 tabs for 2 days, 3 tabs for 2 days, 2 tabs for 2 days 1 tab for 2 days 30 Tablet 07/19/2024 Active predniSONE 10 MG Oral Tablet (Deltasone)Indica tions:Acute gout involving toe of left foot, unspecified cause Take 5 tabs for 2 days, 4 tabs for 2 days, 3 tabs for 2 days, 2 tabs for 2 days 1 tab for 2 days 30 Tablet 07/19/2024 07/19/20 24 Discontinued documented as of this encounter [...] to breakdown of skin 09/27/2023 Atherosclerosis of [place] co ronary artery without angina pectoris 02/09/2023 [...] (AAA) without rupture 06/06/2020 Unspecified atherosclerosis of [place] arteries of extremities, bilateral legs 02/15/2019 Type [...] 10/13/2018 02/15/2019 Coronary artery disease invo lving [place] heart without angina pectoris 06/01/2018 11/10/2021 DM type 2 causing neurological disease 01/24/2018 01/14/2021 Type 2 diabetes mellitus wit h diabetic nephropathy, without long-term current use of insulin 09/08/2017 09/08/2017 Atherosclerotic heart diseas e of [place] coronary artery with unspecified angina pectoris 09/08/2017 [...] mRNA, LNP-s, No Pre serve, 2-Dose Series ([employer]) 08/13/2021,01/22/2021,12/27/2020 Covid-19, Mrna, Lnp-s, Pf, B ivalent, [...] Verified Shot(s) with Parent(s)/Patient: Yes * Yury Pierre MD - 07/19/2024 10:43 AM EDT Images [...] drug-eluting stent placement to the mid-RCA at [facility] in May 2016 . Has follow-up with Cardiology AAA Enlarged aortic root 4.5 cm via December 2023 resting echocardiogram 5.0 cm ascending aortic aneurysm via December 2023 Peripheral vascular disease, status post right popliteal to common plantar bypass grafting in January2024. Followed by [facility] Physical Exam Vitals: 07/19/24 1021 Temp: 36.6 [...] unspecified part (HCC) PVD (peripheral vascular disease) ([facility]) Acute gout involving toe of left foot, [...] a flu injection. documented in this encounter Miscellaneous Notes * Addendum Note - Yury Pierre MD - 07/19/2024 6:02 PM EDT Addended by: YURY PIERRE on: 07/19/2024 06:02 PM Modules accepted: Orders documented in this encounter Plan of Treatment Upcoming Encounters Date Type Department Care Team ([facility] st Contact Info) Description 08/06/2024 9:00 AM EDT Nurse Only Ancillary [address] [phone] [place], Nurse Annual Wellness [address] [address] 10/25/2024 7:00 AM EST Laboratory Laboratory Patient Service [address] [phone] [place], Lab Lock [address] [place] [address] 11/01/2024 11:40 AM EST Office Visit [address] [phone] Yury Pierre MD [address] [place] [phone] 11/21/2024 8:30 AM EST Office Visit Cardiology, [facility] [address] [facility] [place] [address] Sajan Griffith PA-C [address] [place] [address] 05/29/2025 9:45 AM EDT Office Visit [facility] [address] [place] [address] Constantino Weber DO [address] [place] [address] Scheduled Orders Name Type Priority Associated Diagnoses [...] Additional history exists CKD PHOS USE SMARTSET 04936 02/09/202501/29, 02/10/2024, 01/06/2024, Additional history exists Depression Screening 04/24/2025 04/24/2024, 04/21/20 15 B-12 05/17/2025 05/17/2024, 05/0 05/2024, 07/07/2023, Additional history exists CKD HGB USE SMARTSET 44948 05/17/202505/17, 03/07/2024, 03/07/2024, Additional history exists Diabetic [...] AM EDT 07/19/2024 11:19 AM EDT Yury Pierre MD LAB POINT [facility] CARE TEST DOCKED DEVICE UNSOLICITED RESULTS TAIWO HARRIS [address] [place] [address], [facility] [[email or web address]] documented in this encounter Visit Diagnoses Diagnosis [...] the patient have Health Care Power of Fingernail Technician? Yes, not currently available Care Teams Application Architect Manager Relationship Specialty Start Date End Date Yury Pierre MD [address] [place] [phone] PCP - General Family Medicine 07/19/24 documented as of this encounter
--- OUTSIDE RECORDS SUMMARY | 2024-11-07 08:07 | External Medical Summary ---
Author Name Unknown Address Unknown Organization K1G:LABORATORY [facility] - [address] [place] [address] [place] [id number] Laboratory Report Ordering Provider Test Date Status SHEA ABREU 07/30/2024 05:17:00 Final ADMITTED patient Observation Date Value Abnormality Reference (Units ) Status Adenovirus DNA [Presence] in Nasopharynx by ROMEO with non-probe detection 07/30/2024 05:17:00 Negative Negative Final Human coronavirus 229E RNA [Presence] in Nasopharynx by ROMEO with non-probe detection 07/30/2024 05:17:00 Negative Negative Final Human coronavirus HKU1 RNA [Presence] in Nasopharynx by ROMEO with non-probe detection 07/30/2024 05:17:00 Negative Negative Final Human coronavirus NL63 RNA [Presence] in Nasopharynx by ROMEO with non-probe detection 07/30/2024 05:17:00 Negative Negative Final Human coronavirus OC43 RNA [Presence] in Nasopharynx by ROMEO with non-probe detection 07/30/2024 05:17:00 Negative Negative Final SARS-CoV-2 (COVID-19) RNA [Presence] in Nasopharynx by ROMEO with non-probe detection 07/30/2024 05:17:00 Negative Negative Final Human metapneumovirus RNA [Presence] in Nasopharynx by ROMEO with non-probe detection 07/30/2024 05:17:00 Negative Negative Final Rhinovirus+Enterovirus RNA [Presence] in Nasopharynx by ROMEO with non-probe detection 07/30/2024 05:17:00 Negative Negative Final Influenza virus A RNA [Presence] in Nasopharynx by ROMEO with non-probe detection 07/30/2024 05:17:00 Negative Negative Final Influenza virus B RNA [Presence] in Nasopharynx by ROMEO with non-probe detection 07/30/2024 05:17:00 Negative Negative Final Parainfluenza virus 1 RNA [Presence] in Nasopharynx by ROMEO with non-probe detection 07/30/2024 05:17:00 Negative Negative Final Parainfluenza virus 2 RNA [Presence] in Nasopharynx by ROMEO with non-probe detection 07/30/2024 05:17:00 Negative Negative Final Parainfluenza virus 3 RNA [Presence] in Nasopharynx by ROMEO with non-probe detection 07/30/2024 05:17:00 Negative Negative Final Parainfluenza virus 4 RNA [Presence] in Nasopharynx by ROMEO with non-probe detection 07/30/2024 05:17:00 Negative Negative Final Respiratory syncytial virus RNA [Presence] in Nasopharynx by ROMEO with non-probe detection 07/30/2024 05:17:00 Negative Negative Final Bordetella pertussis.pertussis toxin promoter region [Presence] in Nasopharynx by ROMEO with non-probe detection 07/30/2024 05:17:00 Negative Negative Final Chlamydophila pneumoniae DNA [Presence] in Nasopharynx by ROMEO with non-probe detection 07/30/2024 05:17:00 Negative Negative Final Mycoplasma pneumoniae DNA [Presence] in Nasopharynx by ROMEO with non-probe detection 07/30/2024 05:17:00 Negative Negative Final Bordetella parapertussis [id number] DNA [Presence] in Nasopharynx by ROMEO with non-probe detection 07/30/2024 05:17:00 Negative Negative Final
The primers that detect Rhinovirus may cross react with some Enterorviruses. The validation of bronchial specimens, tracheal aspirates, and throats for this assay was developed and performance characteristics determined by [employer]. The validation of alternate specimen types has not been cleared or approved by the U.S. Food and Drug Administration (FDA). It has been determined that such clearance or approval is not necessary. Performing Location LABORATORY [facility] - [address] [facility] [phone]
--- OUTSIDE RECORDS SUMMARY | 2024-11-07 08:07 | External Medical Summary | Summary of Care ---
Author Name Unknown Organization [facility] Address [address] [place] [address] Phone [phone] Care Team Providers Care Floor Coverings Salesperson Name Role Phone Eron Tovar DO Primary Care Provid er Reason for Visit * Reason Onset Date Comments STAIR AAA 01/11/2024 Encounter Details Date Type Department Care Team (Late st Contact Info) Description 01/11/2024 Telephone STAIR AAA [address] [place] [address] Program, Stair [address] [place] [address] STAIR AAA Allergies No known active allergiesdocumented as of this encounter (statuses as of 06/05/2024) Medications Medication Sig Dispensed Refills Start Date [...] Oral EVERY OTHER DAY, Reported on 12/22/2023 Atorvastatin Calcium 40 MG Oral Tablet (Lipitor)Indicat ions:Dyslipidemi a, goal LDL below 100 TAKE ONE TABLET BY MOUTH EVERY DAY 100 Tablet 1 01/02/2024 Active metFORMIN HCl ER 500 MG Oral Tablet Extended Release 24 Hour (Glucophage XR)Indications:T ype 2 diabetes mellitus with diabetic neuropathy, without long-term current use of insulin ([facility]) Take 2 Tablets by mouth 2 times a day with morning and evening meals. 400 Tablet 1 01/10/2024 Active Gabapentin 600 MG Oral Tablet (Neurontin)Indic ations:Type 2 diabetes mellitus with diabetic neuropathy, without long-term current use of insulin ([facility]) TAKE ONE TABLET BY MOUTH THREE TIMES A DAY 270 Tablet 1 01/10/2024 5 Active Myrbetriq 50 MG Oral Tablet Extended Release 24 Hour Take 1 Tablet by mouth in the morning. In the morning.. 11/19/2023 Active Blood Glucose Monitoring Suppl ([facility] ULTRA 2) w/Device KIT Check blood sugars once daily, E11.9, not using insulin, 1 Kit 11/24/2018 4 Discontinue d(Refill) Metoprolol Succinate ER 50 MG Oral Tablet Extended Release 24 Hour (toPROL XL)Indications:P aroxysmal A-fib (HCC) TAKE ONE TABLET BY MOUTH EVERY DAY AT NOON 90 Tablet 3 01/18/2023 4 Discontinue d(Refill) Terbinafine HCl 1 % External Cream (LamISIL AT [facility]) Apply to skin between the toes of the left foot 2 times a day. 30 g 3 07/12/2023 4 Discontinue d(Patient preference/ discontinua tion) Mirtazapine 15 MG Oral Tablet (Remeron) Take 1 Tablet by mouth every night at bedtime. 30 Tablet 12/30/2023 4 Discontinue d(Patient preference/ discontinua tion) documented as of this encounter (statuses as of 06/05/2024) Active Problems Problem Noted Date Diagnosed Date [...] to breakdown of skin 09/27/2023 Atherosclerosis of [place] co ronary artery without angina pectoris 02/09/2023 [...] (AAA) without rupture 06/06/2020 Unspecified atherosclerosis of [place] arteries of extremities, bilateral legs 02/15/2019 Type [...] as of this encounter (statuses as of 06/05/2024) Resolved Problems Problem Noted Date Diagnosed Date Resolved Date Cellulitis of left lower extremity 12/23/2021 12/25/2023 Type 2 diabetes mellitus wit h hemoglobin A1c goal of less than 7.5% 11/14/2019 01/14/2021 Skin ulcer of toe of left fo ot, limited to breakdown of skin 10/13/2018 02/15/2019 Coronary artery disease invo lving [place] heart without angina pectoris 06/01/2018 11/10/2021 DM type 2 causing neurological disease 01/24/2018 01/14/2021 Type 2 diabetes mellitus wit h diabetic nephropathy, without long-term current use of insulin 09/08/2017 09/08/2017 Atherosclerotic heart diseas e of [place] coronary artery with unspecified angina pectoris 09/08/2017 [...] as of this encounter (statuses as of 06/05/2024) Immunizations Name Administration Dates Next Due COVID-19 mRNA, LNP-s, No Pre serve, 2-Dose Series (Opax) 08/13/2021,01/22/2021,12/27/2020 Covid-19, Mrna, Lnp-s, Pf, B ivalent, 30 Mcg, IM, 12 yrs and above (Pfizer) 11/09/2022 Pneumococcal Conjugate Vacc, 13 Valent (Prevnar) 04/21/2015 Pneumococcal Polysaccharide PPV23 (Pneumovax) 09/07/2010 Season Influenza, Quad, PF, Adjuvanted, 65+ Yrs, IM (FLUAD) 07/12/2020 Seasonal Influenza, PF, 6 M & above, IM , (FluLaval or Fluzone) 09/08/2017 Seasonal Influenza, Quadriva lent Hd (Fluzone Hd) 07/13/2023,07/02/2022 Seasonal Influenza, Quadriva lent, No Preserve, IM 07/27/2018,09/15/2015 Seasonal Influenza, Split, I IV3, With Preserve, Inj 07/07/2016,09/16/2014,08/22/2013,08/07,07/12/2011,09/07/2010 Seasonal Influenza, Trivalen t, Adjuvanted, 65+ yrs 07/04/2019 TDAP (age 10 and older)(Boostrix) 04/02/2023 [...] No 12/27/2023 documented as of this encounter Miscellaneous Notes * Telephone Encounter - Jaci Gates LPN - 06/05/2024 3:29 PM EDT AAA - Communication to Patient Called and spoke to patients Alyx. States patient is seeing Dr Pfeiffer at [facility] and has next appt already scheduled. Patient disenrolled from STAIR Program for Abdominal Aortic Aneurysm - banner removed PCP- CAMILO Gates LPN Coordinator STAIR (System to Track Abnormalities of Importance Reliably) [phone] * Telephone Encounter - Jaci Gates LPN - 01/11/2024 2:30 PM EDT AAA - Clinical Summary Name: Gomez Suarez Age: [age] year old AAA Review: Follow-up Follow-up Encounter Provider: Hunter Britt MD Patient Identified by: Problem List Report Imaging Interpretation: MRI Type of Result: AAA 3.0 to 3.9 cm AAA Care Plan Imaging Recommendation: Aortic Duplex - details below Details: in 3 months AAA Care Plan Visit Recommendation: Return visit in Vascular Surgery Details: in 3 months Next steps: No action needed at this time. Patient was seen by vascular surgery today. Next clinic visit with testing prior is already scheduled. Will continue to track. Time spent: 10 minutes Jaci Gates LPN Coordinator SAMINA (System to Track Abnormalities of Importance Reliably) MRI L SPINE WO CONTRAST 03/21/2023 Narrative EXAM: MRI LUMBAR SPINE WITHOUT CONTRAST HISTORY: Low back pain; Neurologic deficit, non-traumatic; LE weakness; Increasing/persistent or sudden onset LE weakness; No known/automatically detected potential contraindications to imaging COMPARISON: November 12, 2021. TECHNIQUE: Multiplanar multisequence MRI of the lumbar spine without contrast was performed. FINDINGS: The retroperitoneum is unremarkable in appearance. The conus terminates at L1. Signal in the distalcord is normal. Alignment of the lumbar vertebral bodies is anatomic. There is disc space narrowingat L4-5. The remaining disc space heights are maintained. Minimal discogenic endplate changes are present at L4-5. There are no additional focal marrow signal abnormalities on the STIR sequence. At L1-2 there is no herniation, thecal sac narrowing, or foraminal compromise. At L2-3 disc bulge and facet hypertrophy are present without thecal sac or subarticular compromise.There is no foraminal impingement. At L3-4 there is disc bulge and facet hypertrophy with no thecal sac stenosis and minimal right subarticular narrowing. No foraminal impingement is present. At L4-5 there is a left foraminal extrusion extending cephalad in the epidural space. No thecal sacstenosis is present, but there is moderate narrowing of the left foramen and there may be mass effect on the exiting left L4 nerve root. The right foramen is patent. At L5-S1 bilateral facet degeneration is evident. There is a synovial cyst at the medial margin of the left facet joint, but there is no high-grade thecal sac stenosis or foraminal compromise. Impression : 1. Left foraminal extrusion at the L4-5 level resulting in possible mass effect on the left L4 nerve root in the foramen. 2. Additional degenerative changes of the mid and lower lumbar spine without high-grade thecal sac or foraminal compromise. documented in this encounter Plan of Treatment Upcoming Encounters Date Type Department Care Team (Late st Contact Info) Description 07/19/2024 10:20 AM EDT Office Visit [address] [phone] Yury Cash MD [address] [place] [phone] 08/06/2024 2:45 PM EDT Office Visit Dermatology [facility] [address] [facility] [place] [address] Jim Ahuja MD [address] [facility] [place] [address] 11/21/2024 8:30 AM EST [facility] [place] [address] Sajan Griffith PA-C [address] [facility] [place] [address] 05/29/2025 9:45 AM EDT Office Visit [facility] [address] [place] [address] Constantino Weber DO [address] [place], [place] [phone] Health Maintenance Due Date Last Done Comments Adult Wellness Visit 2002 Colonoscopy 01/20/2016 01/19/2011, 12/29, 01/07/2011, Additional history exists Albumin/Creatinine Ratio 05/07/2023 022, 04/11/2021, 05/28/2020, Additional history exists COVID-19 Vaccine ( season) 2023 11/09/2022, 08/13/2021, 01/22/2021, Additional history exists Diabetic Foot Exam 06/08/2024 06/08/2023, 1 , 11/10/2021, Additional history exists Influenza Vaccine (FLU shot) (#1) 2024 07/13/2023, 07/02/2022, 07/12/2020, Additional history exists HbA1c 08/11/2024 02/10/2024, 01/29, 01/06/2024, Additional history exists CKD PHOS USE SMARTSET 50336 02/09/202501/29, 02/10/2024, 01/06/2024, Additional history exists Depression Screening 04/24/2025 04/24/2024, 04/21/20 15 B-12 05/17/2025 05/17/2024, 05/0 05/2024, 07/07/2023, Additional history exists CKD HGB USE SMARTSET 51498 05/17/202505/17, 03/07/2024, 03/07/2024, Additional history exists Diabetic Eye Exam 05/25/2025 05/25/2024, , 05/25/2024, Additional history exists DTaP,Tdap,and Td Vaccines (3 - Td or Tdap) 04/02/2033 04/02/2023, 03/11/2012 Pneumococcal Vaccine: 65+ Years Completed 04/21/2015, 09/07/2010 RETIRED - COLONOSCOPY-EVERY 5 YRS AGES 18-100 Discontinued 03/22/2016 (Declined), 01/19/2011, 01/13/2011, Additional history exists Zoster Vaccines Completed 05/07/2021, 10/31, 04/08/2014 HPV (Gardasil) Vaccine Aged Out No lo [...] the patient have Health Care Power of Dye Jig Operator? Yes, not currently available Care Teams Floor Coverings Salesperson Relationship Specialty Start Date End Date Eron Tovar DO [address] [place] [address] PCP - General Internal Medicine 01/14/21 documented as of this encounter
--- OUTSIDE RECORDS SUMMARY | 2024-11-07 08:07 | External Medical Summary | Summary of Care ---
Author Name Unknown Organization [facility] Address [address] [place] [address] Phone [phone] Care Team Providers Care Brake Assembler Name Role Phone Eron Tovar DO Primary Care Provid er Reason for Visit * Reason Comments Eye Exam Encounter Details Date Type Department Care Team (Late st Contact Info) Description 05/25/2024 10:30 AM EDT Office Visit [facility] [address] [place] [address] Constantino Weber DO [address] [place] [address] After cataract of both eyes not obscuring vision*; Visual distortions of shape and size; Type 2 diabetes mellitus with diabetic neuropathy, without long-term current use of insulin (HCC); Keratoconjunctivitis sicca of both eyes not due to Sjogren's syndrome Allergies No known active allergiesdocumented as of this encounter (statuses as of 05/25/2024) Medications Medication Sig Dispensed Refills Start Date [...] 12/22/2023 Atorvastatin Calcium 40 MG Oral Tablet (Lipitor)Indication [...] the morning. In the morning.. 11/19/2023 Active OneTouch Ultra 2 w/Device Kit Check [...] Tablet by mouth in the morning. Active documented as of this encounter (statuses as of 05/25/2024) Active Problems Problem Noted Date Diagnosed Date [...] to breakdown of skin 09/27/2023 Atherosclerosis of [place] co ronary artery without angina pectoris [...] (AAA) without rupture 06/06/2020 Unspecified atherosclerosis of [place] arteries of extremities, bilateral legs 02/15/2019 Type [...] as of this encounter (statuses as of 05/25/2024) Resolved Problems Problem Noted Date Diagnosed Date Resolved Date Cellulitis of left lower extremity 12/23/2021 12/25/2023 Type 2 diabetes mellitus wit h hemoglobin A1c goal of less than 7.5% 11/14/2019 01/14/2021 Skin ulcer of toe of left fo ot, limited to breakdown of skin 10/13/2018 02/15/2019 Coronary artery disease invo lving [place] heart without angina pectoris 06/01/2018 11/10/2021 DM type 2 causing neurological disease 01/24/2018 01/14/2021 Type 2 diabetes mellitus wit h diabetic nephropathy, without long-term current use of insulin 09/08/2017 09/08/2017 Atherosclerotic heart diseas e of [place] coronary artery with unspecified angina pectoris [...] as of this encounter (statuses as of 05/25/2024) Immunizations Name Administration Dates Next Due COVID-19 mRNA, LNP-s, No Pre serve, 2-Dose Series (dooyoo) 08/13/2021,01/22/2021,12/27/2020 Covid-19, Mrna, Lnp-s, Pf, B ivalent, 30 Mcg, IM, 12 yrs and above (dooyoo) 11/09/2022 Pneumococcal Conjugate Vacc, 13 Valent (Prevnar) [...] as of this encounter Progress Notes * Constantino Weber, - 05/25/2024 11:03 AM EDT 05/25/2024 11:04 AM [facility] Note HPI: Pt return for follow up CE Ou and angle closure post op OS - see prior notes CE done elsewhere and was treated urgently here. Doing OK in interval some bladder issues etc - eyes stable for most part Location: OU Severity: severe IOP spike OS Quality: LPI Exacerbating/Remitting Factors: improved with treatment Associated Sx: gets blurry at times mostly with prolonged reading or blinking Nursing notes reviewed. Medical hx reviewed. Medications reviewed. Social: pt denies smoking ROS: Pt denies acute vision loss Pt denies new onset double vision Pt denies severe POWERS Pt denies new or worsening eyelid issues Pt admits to above Please see below for full exam details. Base Eye Exam Visual Acuity (Snellen - Linear) Right Left Dist cc 20/50 20/40 Dist ph cc NI NI Correction: Glasses Tonometry (icare, 10:34 AM) Right Left Pressure 12 9 Pupils Dark Shape React Right 4 Round Minimal Left 4 Round Minimal Visual Schmidt (Counting fingers) Right Left Full Full Extraocular Movement Right Left Full Full Neuro/Psych Oriented x3: Yes Mood/Affect: Normal Dilation Both eyes: 1.0% Mydriacyl @ 10:34 AM Patient cautioned that effects of dilation may last 2-7 hours dependant upon individual reaction. It was discussed that driving while dilated is not recommended. 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 Slit Lamp and Fundus Exam External Exam Right Left External Normal Normal Slit Lamp Exam Right Left Lids/Lashes 1+ Blepharitis 1+ Blepharitis Conjunctiva/Sclera White and quiet White and quiet Cornea 1+ PEE, Guttata 1+ PEE, Guttata Anterior Chamber Deep and quiet Deep and quiet Iris Round and reactive PI Lens Centered posterior chamber intraocular lens - PC open, pitting Centered posterior chamber intraocular lens Anterior Vitreous Posterior vitreous detachment Posterior vitreous detachment Fundus Exam Right Left Disc Sl pallor, PPA Sl pallor, PPA C/D Ratio 0.2 0.2 Macula Mottling Mottling Vessels Normal Normal Periphery Normal Normal (H53.15) Visual distortions of shape and size (primary encounter diagnosis) Plan: OPHTHAL IMAGE (SITE), RETINA SCAN DIAGNOSTIC IMAGE, POSTERIOR, OPTIC NERVE SCAN DIAGNOSTIC IMAGE,POSTERIOR OCT stable mild NFL OS and normal OD -has some rpe changes OD under fovea - follow -overall no severe changes remains thin OS 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 Constantino Weber DO 05/25/2024 documented in this encounter Nursing Notes * Pricilla Roca COA - 05/25/2024 11:00 AM EDT OCT image(s) of both eyes acquired and filed/scanned into chart. * Reer Alaniz COA - 05/25/2024 10:23 AM EDT Gomez Suarez is a 88 year old male who presents for 6 month diabetic eye exam. Last Visit: 03/31/2022 (in office), Visit date not found (telemedicine) He currently states has not noticed any significant changes in the vision. Are you diabetic? Yes. Do you check your sugar daily? YES. Did not measure this morning. Last Hemoglobin A1C: Lab Results Component Value Date/Time HGBA1C 6.7 (H) 02/10/2024 01:23 PM HGBA1C 6.7 (H) 02/10/2024 12:00 AM HGBA1C 7.6 (H) 01/06/2024 07:28 AM HGBA1C 7.5 (H) 12/23/2023 05:51 AM HGBA1C 8.0 (H) 07/07/2023 07:22 AM HGBA1C 7.3 (A) 08/16/2022 12:00 AM HGBA1C 7.1 (H) 05/28/2020 08:46 AM HGBA1C 6.9 (H) 11/14/2019 03:56 PM HGBA1C 7.0 (H) 06/27/2019 07:13 AM Current Ophthalmic Medications: None Vision, Tonometry, current glass prescription and pupil check if done can be found in the ophth exam documented in this encounter Plan of Treatment Upcoming Encounters Date Type Department Care Team (Late st Contact Info) Description 07/19/2024 10:20 AM EDT Office Visit [address] [phone] Yury Cash MD [address] [place] [address] 08/06/2024 2:45 PM EDT Office [facility] [address] Jim Ahuja MD [address] [facility], [place] [address] 11/21/2024 8:30 AM EST Office Visit Cardiology, [facility] [address] [place] [address] Sajan Griffith PA-C [address] [place] [address] 05/29/2025 9:45 AM EDT Office Visit [facility] [address] [place] [address] Constantino Weber DO [address] [place] [address] Scheduled Orders Name Type Priority Associated Diagnoses Orde r Schedule RETINA SCAN DIAGNOSTIC IMAGE, POSTERIOR Procedures Routine Visual distortions of shape and size Ordered: 05/25/2024 Health Maintenance Due Date Last Done Comments [...] Additional history exists CKD PHOS USE SMARTSET 68080 02/09/202501/29, 02/10/2024, 01/06/2024, Additional history exists Depression Screening 04/24/2025 04/24/2024, 04/21/20 15 B-12 05/17/2025 05/17/2024, 05/0 05/2024, 07/07/2023, Additional history exists CKD HGB USE SMARTSET 41385 05/17/202505/17, 03/07/2024, 03/07/2024, Additional history exists Diabetic [...] as of this encounter Visit Diagnoses Diagnosis After cataract of both eyes not obscuring vision- Primary Visual distortions of shape and size Type 2 diabetes mellitus with diabetic neuropathy, without long-term current use of insulin (HCC) Keratoconjunctivitis sicca of both eyes not due to Sjogren's syndrome documented in this encounter Advance Directives * [...] the patient have Health Care Power of Improvement Advisor? Yes, not currently available Care Teams Brake Assembler Relationship Specialty Start Date End Date Eron Tovar DO [address] [place] [address] PCP - General Internal Medicine 01/14/21 documented as of this encounter
--- OUTSIDE RECORDS SUMMARY | 2024-11-07 08:07 | External Medical Summary | Summary of Care ---
Author Name Unknown Organization [facility] Address [address] [place] [address] Phone [phone] Care Team Providers Care Bag Valver Name Role Phone Yury Cash MD Primary Care Provi [facility] Encounter Details Date Type Department Care Team ([facility] st Contact Info) Description 07/19/[address] [phone] Yury Cash MD [address] [place] [phone] Allergies No known active allergiesdocumented as of [...] A DAY 270 Tablet 1 01/10/2024 01/10/20 25 Active Myrbetriq 50 MG Oral Tablet Extended Release 24 Hour Take 1 Tablet by mouth in the morning. In the morning.. 11/19/2023 Active [employer] 2 w/Device Kit Check blood sugars once [...] to breakdown of skin 09/27/2023 Atherosclerosis of [place] co ronary artery without angina pectoris 02/09/2023 [...] (AAA) without rupture 06/06/2020 Unspecified atherosclerosis of [place] arteries of extremities, bilateral legs 02/15/2019 Type [...] 10/13/2018 02/15/2019 Coronary artery disease invo lving [place] heart without angina pectoris 06/01/2018 11/10/2021 DM type 2 causing neurological disease 01/24/2018 01/14/2021 Type 2 diabetes mellitus wit h diabetic nephropathy, without long-term current use of insulin 09/08/2017 09/08/2017 Atherosclerotic heart diseas e of [place] coronary artery with unspecified angina pectoris 09/08/2017 [...] mRNA, LNP-s, No Pre serve, 2-Dose Series (AQS) 08/13/2021,01/22/2021,12/27/2020 Covid-19, Mrna, Lnp-s, Pf, B ivalent, 30 Mcg, IM, 12 yrs and above (AQS) 11/09/2022 Pneumococcal Conjugate Vacc, 13 Valent (Prevnar) [...] Telephone Encounter - Yury Cash MD - 07/19/2024 6:01 PM EDT Noted, sent in another encounter * Telephone Encounter - Kim Overton RN - 07/19/2024 1:40 PM EDT Incoming call from [facility] requesting to have prednisone script that was ordered today sent to [facility] in [place] rather than mail order. Please send if agreeable. Kim Overton RN documented in this encounter Plan of Treatment Upcoming Encounters Date Type Department Care Team ([facility] st Contact Info) Description 08/06/2024 9:00 AM EDT Nurse Only Ancillary [address] [phone] [facility] [address] [address] 10/25/2024 7:00 AM EST Laboratory [facility] [phone] [facility] Lock [address] [place] [address] 11/01/2024 11:40 AM EST Office Visit [address] [phone] Yury Cash MD [address] [place] [phone] 11/21/2024 8:30 AM EST Office Visit Cardiology, [facility] [address] [facility] [place] [address] Sajan Griffith PA-C [address] [place] [address] 05/29/2025 9:45 AM EDT Office Visit [facility] [address] [place] [address] Constantino Weber DO [address] [place], [place] [phone] Health Maintenance Due Date Last Done Comments Adult Wellness Visit 2002 Colonoscopy 01/20/2016 01/19/2011, 12/29, 01/07/2011, Additional history exists Albumin/Creatinine Ratio 05/07/2023 022, 04/11/2021, 05/28/2020, Additional history exists Diabetic Foot Exam 06/08/2024 06/08/2023, 1 , 11/10/2021, Additional history exists COVID-19 Vaccine ( season) 2024 11/09/2022, 08/13/2021, 01/22/2021, Additional history exists HbA1c 01/16/2025 07/19/2024, 01/29, 02/10/2024, Additional history exists CKD PHOS USE SMARTSET 45415 02/09/202501/29, 02/10/2024, 01/06/2024, Additional history exists Depression Screening 04/24/2025 04/24/2024, 04/21/20 15 B-12 05/17/2025 05/17/2024, 05/0 05/2024, 07/07/2023, Additional history exists CKD HGB USE SMARTSET 62317 05/17/202505/17, 03/07/2024, 03/07/2024, Additional history exists Diabetic [...] the patient have Health Care Power of Defensive Driving Instructor? Yes, not currently available Care Teams Bag Valver Relationship Specialty Start Date End Date Yury Cash MD [address] [place], [place] [address] [place] [phone] PCP - General Family Medicine 07/19/24 documented as of this encounter
--- OUTSIDE RECORDS SUMMARY | 2024-11-07 08:07 | External Medical Summary ---
Author Name Unknown Address Unknown Organization K1G:[facility] [address] Laboratory Report Ordering Provider Test Date Status SHEA ABREU 07/30/2024 05:17:00 Final Observation Date Value Abnormality Reference (Units ) Status WBC, Total 07/30/2024 05:17:00 14.22 Above high normal 4 .00-10.80 (K/uL) Final RBC 07/30/2024 05:17:00 4.23 4.50-5.25 (M/uL) Final Hemoglobin 07/30/2024 05:17:00 10.7 Below low normal 14 .0-16.8 (g/dL) Final HCT 07/30/2024 05:17:00 35.4 Below low normal 40. 0-48.4 (%) Final MCV 07/30/2024 05:17:00 83.7 82.0-99.5 (fL) Final MCH 07/30/2024 05:17:00 25.3 27.0-34.0 (pg) Final MCHC 07/30/2024 05:17:00 30.2 32.0-36.0 (g/dL) Final RDW 07/30/2024 05:17:00 17.7 11.5-15.5 (%) Final Platelets 07/30/2024 05:17:00 181 140-400 (K /uL) Final MPV 07/30/2024 05:17:00 12.7 6.6-11.1 ( fL) Final Performing Location [facility] [place] [address]
--- OUTSIDE RECORDS SUMMARY | 2024-11-07 08:07 | External Medical Summary ---
Author Name Unknown Address Unknown Organization : Laboratory Report Ordering Provider Test Date Status IGNACIO AZAR 07/19/2024 11:07:33 Final Observation Date Value Abnormality Reference (Units ) Status HbA1C 07/19/2024 11:07:33 7.1 Above high normal 4. 0-5.6 (%) Final Performing Location
--- OUTSIDE RECORDS SUMMARY | 2024-11-07 08:07 | External Medical Summary | Summary of Care ---
Author Name Unknown Organization [facility] Address [address] [place] [address] Phone [phone] Care Team Providers Care Mop Handle Assembler Name Role Phone Eron Tovar DO Primary Care Provid er Reason for Visit * Reason Onset Date Comments FYI 03/21/2024 Encounter Details Date Type Department Care Team ([facility] Contact Info) Description 03/21/[address] [phone] Eron Tovar DO [address] [place] [address] FYI Allergies No known active allergiesdocumented as of this encounter (statuses as of 06/20/2024) Medications Medication Sig Dispensed Refills Start Date [...] 12/22/2023 Atorvastatin Calcium 40 MG Oral Tablet (Lipitor)Indicati [...] the morning. In the morning.. 11/19/2023 Active [employer] 2 w/Device Kit Check blood sugars once daily 1 Kit 01/31/2024 Active Metoprolol Succinate ER 50 MG Oral Tablet Extended Release 24 Hour (toPROL XL)Indications:Pa roxysmal A-fib (HCC) TAKE ONE TABLET BY MOUTH EVERY DAY AT NOON 90 Tablet 3 02/15/2024 02/14/2025 Active documented as of this encounter (statuses as of 06/20/2024) Active Problems Problem Noted Date Diagnosed Date [...] as of this encounter (statuses as of 06/20/2024) Resolved Problems Problem Noted Date Diagnosed Date [...] as of this encounter (statuses as of 06/20/2024) Immunizations Name Administration Dates Next Due COVID-19 [...] encounter Miscellaneous Notes * Telephone Encounter - Eron Tovar DO - 03/21/2024 2:07 PM EDT Noted. He should follow-up as scheduled * Telephone Encounter - Denae Lan MED ASSIST - 03/21/2024 11:21 AM EDT Please advise. * Telephone Encounter - Brianna Armenta OSA - 03/21/2024 9:47 AM EDT Patient was seen at [facility] in [place] today, BP is 144/68. This is an FYI for Dr Tovar documented in this encounter Plan of Treatment Upcoming Encounters Date Type Department Care Team ([facility] st Contact Info) Description 07/19/2024 10:20 AM EDT Office Visit [address] [phone] Yury Cash MD [address] [place] [address] 08/06/2024 9:00 AM EDT Nurse Only Ancillary [facility] [address] [place] [phone] [place], Nurse Annual Wellness Lock [address] [place] [address] 11/21/2024 8:30 AM EST Office Visit Cardiology, [facility] [address] [facility] [place] [address] Sajan Griffith PA-C [address] [place] [address] 05/29/2025 9:45 AM EDT [facility] [address] [place] [address] Constantino Weber DO [address] [place] [address] Health Maintenance Due Date Last Done Comments [...] Additional history exists CKD PHOS USE SMARTSET 44088 02/09/202501/29, 02/10/2024, 01/06/2024, Additional history exists Depression Screening 04/24/2025 04/24/2024, 04/21/20 15 B-12 05/17/2025 05/17/2024, 05/0 05/2024, 07/07/2023, Additional history exists CKD HGB USE SMARTSET 96037 05/17/202505/17, 03/07/2024, 03/07/2024, Additional history exists Diabetic [...] the patient have Health Care Power of Bankruptcy Attorney? Yes, not currently available Care Teams Mop Handle Assembler Relationship Specialty Start Date End Date Eron Tovar DO [address] [place] [phone] PCP - General Internal Medicine 01/14/21 documented as of this encounter
--- OUTSIDE RECORDS SUMMARY | 2024-11-07 08:07 | External Medical Summary | Summary of Care ---
Author Name Unknown Organization [facility] Address [address] [place] [address] Phone [phone] Care Team Providers Care Silo Worker Name Role Phone Eron Tovar DO Primary Care Provid er Reason for Visit * Reason Onset Date Comments Health Maintenance 06/18/2024 Encounter Details Date Type Department Care Team ([facility] Contact Info) Description 06/18/[address] [phone] Eron Tovar DO [address] [place] [phone] Health Maintenance Allergies No known active allergiesdocumented as of this encounter (statuses as of 06/18/2024) Medications Medication Sig Dispensed Refills Start Date [...] the morning. In the morning.. 11/19/2023 Active Liquid[employer] Ultra 2 w/Device Kit Check blood sugars [...] as of this encounter (statuses as of 06/18/2024) Active Problems Problem Noted Date Diagnosed Date [...] to breakdown of skin 09/27/2023 Atherosclerosis of [place] co ronary artery without angina pectoris 02/09/2023 [...] (AAA) without rupture 06/06/2020 Unspecified atherosclerosis of [place] arteries of extremities, bilateral legs 02/15/2019 Type [...] as of this encounter (statuses as of 06/18/2024) Resolved Problems Problem Noted Date Diagnosed Date Resolved Date Cellulitis of left lower extremity 12/23/2021 12/25/2023 Type 2 diabetes mellitus wit h hemoglobin A1c goal of less than 7.5% 11/14/2019 01/14/2021 Skin ulcer of toe of left fo ot, limited to breakdown of skin 10/13/2018 02/15/2019 Coronary artery disease invo lving [place] heart without angina pectoris 06/01/2018 11/10/2021 DM type 2 causing neurological disease 01/24/2018 01/14/2021 Type 2 diabetes mellitus wit h diabetic nephropathy, without long-term current use of insulin 09/08/2017 09/08/2017 Atherosclerotic heart diseas e of [place] coronary artery with unspecified angina pectoris 09/08/2017 [...] as of this encounter (statuses as of 06/18/2024) Immunizations Name Administration Dates Next Due COVID-19 mRNA, LNP-s, No Pre serve, 2-Dose Series ([employer] 08/13/2021,01/22/2021,12/27/2020 Covid-19, Mrna, Lnp-s, Pf, B ivalent, [...] encounter Miscellaneous Notes * Telephone Encounter - Laura Wade LPN - 06/18/2024 11:58 AM EDT Care Gaps Comprehensive Care Outreach Last Office/Telemedicine Visit: 04/13/2024 (in office), Visit date not found (telemedicine) Next Office Visit: 07/19/2024 Hemoglobin AIC Results: Lab Results Component Value Date/Time HEMOGLOBIN A1C - [facility] 7.6 (H) 01/06/2024 07:28 AM HEMOGLOBIN A1C - [facility] 7.5 (H) 12/23/2023 05:51 AM HEMOGLOBIN A1C - [facility] 8.0 (H) 07/07/2023 07:22 AM HEMOGLOBIN A1C - [facility] 7.1 (H) 05/28/2020 08:46 AM HEMOGLOBIN A1C - [facility] 6.9 (H) 11/14/2019 03:56 PM HEMOGLOBIN A1C - [facility] 7.0 (H) 06/27/2019 07:13 AM BP Readings from Last 1 Encounters: 05/17/24 130/80 Reviewed Health Maintenance below: Health Maintenance Topic Date Due Adult Wellness Visit Never done Colonoscopy 01/20/2016 Albumin/Creatinine Ratio 05/07/2023 Influenza Vaccine (FLU shot) (1) 07/01/2024 HbA1c 08/11/2024 Care Gap Outreach Action Taken: Spoke to patient Cologuard f/u. Pt can discuss with PCP at upcoming visit d/t age. AWV scheduled. A1C added for Jul. documented in this encounter Plan of Treatment Upcoming Encounters Date Type Department Care Team ([facility] Contact Info) Description 07/19/2024 10:20 AM EDT Office Visit [address] [phone] Yury Cash MD [address] [place] [phone] 08/06/2024 9:00 AM EDT Nurse Only Ancillary [address] [phone] Radha, Nurse Annual Wellness [address] [address] 11/21/2024 8:30 AM EST [facility] [place] [address] Sajan Griffith PA-C [address] [place] [address] 05/29/2025 9:45 AM EDT Office Visit [facility] [address] [place], [place] [phone] Constantino Weber DO [address] [place], [place] [phone] Scheduled Orders Name Type Priority Associated Diagnoses Orde r Schedule HEMOGLOBIN A1C Lab Routine Type 2 diabetes mellitus with diabetic neuropathy, without long-term current use of insulin (HCC) Expected: 07/31/2024, Expires: 06/18/2025 Health Maintenance Due Date Last Done Comments [...] Additional history exists CKD PHOS USE SMARTSET 55717 02/09/202501/29, 02/10/2024, 01/06/2024, Additional history exists Depression Screening 04/24/2025 04/24/2024, 04/21/20 15 B-12 05/17/2025 05/17/2024, 05/0 05/2024, 07/07/2023, Additional history exists CKD HGB USE SMARTSET 65060 05/17/202505/17, 03/07/2024, 03/07/2024, Additional history exists Diabetic [...] neuropathy, without long-term current use of insulin (HCC)- Primary documented in this encounter Advance Directives [...] the patient have Health Care Power of [employer] Consultant? Yes, not currently available Care Teams Silo Worker Relationship Specialty Start Date End Date Eron Tovar DO [address] [place] [address] PCP - General Internal Medicine 01/14/21 documented as of this encounter
--- OUTSIDE RECORDS SUMMARY | 2024-11-07 08:07 | External Medical Summary | Summary of Care ---
Author Name Unknown Organization [facility] Address [address] [place] [address] Phone [phone] Care Team Providers Care Physics Professor Name Role Phone Eron Boland DO Primary Care Provid er Reason for Visit * Reason Comments Medication Refill Encounter Details Date Type Department Care Team ([facility] Contact Info) Description 07/15/2024 Refill Family [address] [phone] Eron Boland DO [address] [place] [phone] Dyslipidemia, goal LDL below 100 Allergies No known active allergiesdocumented as of this encounter (statuses as of 07/16/2024) Medications Medication Sig Dispensed Refills Start Date [...] the morning. In the morning.. 11/19/2023 Active Xipin Ultra 2 w/Device Kit Check blood sugars once daily 1 Kit 01/31/2024 Active Metoprolol Succinate ER 50 MG Oral Tablet Extended Release 24 Hour (toPROL XL)Indications:Par oxysmal A-fib (HCC) TAKE ONE TABLET BY MOUTH EVERY DAY AT NOON 90 Tablet 3 02/15/2024 5 Active traMADol HCl 50 MG Oral Tablet (Ultram)Indication [...] EVERY DAY 100 Tablet 1 07/16/2024 Active Atorvastatin Calcium 40 MG Oral Tablet (Lipitor)Indicatio ns:Dyslipidemia, goal LDL below 100 TAKE ONE TABLET BY MOUTH EVERY DAY 100 Tablet 1 01/02/2024 4 Discontinue d(Refill) documented as of this encounter (statuses as of 07/16/2024) Active Problems Problem Noted Date Diagnosed Date [...] to breakdown of skin 09/27/2023 Atherosclerosis of robinson co ronary artery without angina pectoris 02/09/2023 [...] (AAA) without rupture 06/06/2020 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, bilateral legs 02/15/2019 Type [...] as of this encounter (statuses as of 07/16/2024) Resolved Problems Problem Noted Date Diagnosed Date Resolved Date Cellulitis of left lower extremity 12/23/2021 12/25/2023 Type 2 diabetes mellitus wit h hemoglobin A1c goal of less than 7.5% 11/14/2019 01/14/2021 Skin ulcer of toe of left fo ot, limited to breakdown of skin 10/13/2018 02/15/2019 Coronary artery disease invo lving robinson heart without angina pectoris 06/01/2018 11/10/2021 DM type 2 causing neurological disease 01/24/2018 01/14/2021 Type 2 diabetes mellitus wit h diabetic nephropathy, without long-term current use of insulin 09/08/2017 09/08/2017 Atherosclerotic heart diseas e of robinson coronary artery with unspecified angina pectoris 09/08/2017 [...] as of this encounter (statuses as of 07/16/2024) Immunizations Name Administration Dates Next Due COVID-19 mRNA, LNP-s, No Pre serve, 2-Dose Series ([place]) 08/13/2021,01/22/2021,12/27/2020 Covid-19, Mrna, Lnp-s, Pf, B ivalent, 30 Mcg, IM, 12 yrs and above ([place]) 11/09/2022 Pneumococcal Conjugate Vacc, 13 Valent (Prevnar) [...] encounter Miscellaneous Notes * Telephone Encounter - Elmo Hutchinson [facility] - 07/16/2024 3:31 PM EDTSigned Prescriptions: Disp Refills Atorvastatin Calcium 40 MG Oral Tablet (Li*100 Ta*1 Sig: TAKE ONE TABLET BY MOUTH EVERY DAYAuthorizing Provider: ERON BOLAND User: Luis HUTCHINSON documented in this encounter Plan of Treatment Upcoming Encounters Date Type Department Care Team ([facility] Contact Info) Description 07/19/2024 10:20 AM EDT Office Visit Family Practice [facility] [address] [place] [phone] Yury Cash MD [address] [place] [phone] 08/06/2024 9:00 AM EDT Nurse Only Ancillary [address] [phone] Radha, Nurse Annual Wellness [address] [address] 11/21/2024 8:30 AM EST Office Visit [facility] [place] [address] Sajan Griffith PA-C [address] [facility] [id number] 05/29/2025 9:45 AM EDT [facility] [address] [place] [address] Constantino Weber DO [address] [place] [address] Health Maintenance Due Date Last Done Comments Adult Wellness Visit 2002 Colonoscopy 01/20/2016 01/19/2011, 12/29, 01/07/2011, Additional history exists Albumin/Creatinine Ratio 05/07/20232 022, 04/11/2021, 05/28/2020, Additional history exists Diabetic Foot Exam 06/08/2024 06/08/2023, 1 , 11/10/2021, Additional history exists COVID-19 Vaccine ( season) 2024 11/09/2022, 08/13/2021, 01/22/2021, Additional history exists Influenza Vaccine (FLU shot) (#1) 2024 07/13/2023, 07/02/2022, 07/12/2020, Additional history exists HbA1c 08/11/2024 02/10/2024, 01/29, 01/06/2024, Additional history exists CKD PHOS USE SMARTSET 36346 02/09/202501/29, 02/10/2024, 01/06/2024, Additional history exists Depression Screening 04/24/2025 04/24/2024, 04/21/20 15 B-12 05/17/2025 05/17/2024, 050 05/2024, 07/07/2023, Additional history exists CKD HGB USE SMARTSET 61204 05/17/202505/17, 03/07/2024, 03/07/2024, Additional history exists Diabetic [...] as of this encounter Visit Diagnoses Diagnosis Dyslipidemia, goal LDL below 100 Other and unspecified hyperlipidemia documented in this [...] the patient have Health Care Power of Realty Loan Specialist? Yes, not currently available Care Teams Physics Professor Relationship Specialty Start Date End Date Eron Boland DO [address] [place] [phone] PCP - General Internal Medicine 01/14/21 documented as of this encounter
--- OUTSIDE RECORDS SUMMARY | 2024-11-07 08:07 | External Medical Summary ---
Author Name Unknown Address Unknown Organization K1G:[facility] - [address] [place] [id number] Laboratory Report Ordering Provider Test Date Status SHEA ABREU 07/30/2024 05:17:00 Final Exclude Heart Failure: <300 pg/mL
Diagnose Heart Failure:
Age <50 yr: >450 pg/mL
50-75 yr: >900 pg/mL
>75 yr: >1800 pg/mL
GFR is 30-59 mL/min: >1200 pg/mL or Age- adjusted values
GFR <30 mL/min: do not use, not reliable

Prognostic threshold: 1000 pg/mL Observation Date Value Abnormality Reference (Units ) Status BNP, Pro-hormone 07/30/2024 05:17:00 2848 Above high no rmal <300 (pg/mL) Final Performing Location [facility] - [address] [place] [phone]
--- OUTSIDE RECORDS SUMMARY | 2024-11-07 08:08 | External Medical Summary ---
Author Name Unknown Address Unknown Organization R1WR:[facility] [address] [facility] [place] [address] Laboratory Report Ordering Provider Test Date Status JONATHON ABREU 05/16/2024 16:23:00 Final Observation Date Value Abnormality Reference (Units ) Status Specimen Description 05/16/2024 16:29 L FOOT Final Special Requests 05/16/2024 16:29 None Final Culture 05/18/2024 14:06 No Anaerobes isolated Final Report Status 05/18/2024 14:06 Final Result 05/18/2024 Final Performing Location [facility] [address] [place] [address]
--- OUTSIDE RECORDS SUMMARY | 2024-11-07 08:08 | External Medical Summary ---
Author Name Unknown Address Unknown Organization R1WR:[facility] [address] [place] [address] Laboratory Report Ordering Provider Test Date Status JONATHON ABREU 05/16/2024 16:23:00 Final Observation Date Value Abnormality Reference (Units ) Status Specimen Description 05/16/2024 16:29 L FOOT Final Special Requests 05/16/2024 16:29 None Final Gram Stain 05/17/2024 08:12 Rare Polys F inal 2+ Gram positive cocci in pa irs and chains Rare Gram Negative Rods Rare Yeast Culture 05/18/2024 14:11 4+ Serratia marcescens Final 4+ Enterococcus faecalis 4+ CHRYSEOBACTERIUM (FLAVOBACTERIUM) INDOLOGENES 3+ Julia albicans Report Status 05/20/2024 08:22 Final Result 05/20/2024 Final Organism 05/18/2024 14:11 4+ Serratia marcescens Final METHOD 05/18/2024 14:11 Microscan ALEXANDREA-ug/ml (MARY) Final Cefepime 05/18/2024 14:11 <=2 Sensitive Susceptible Final Ceftazidime 05/18/2024 14:11 <=1 Sensitive Susceptible Final Ceftriaxone 05/18/2024 14:11 2 Intermediate Intermediate Final Ciprofloxacin 05/18/2024 14:11 <=0.25 Sensitive Susceptible Final Ertapenem 05/18/2024 14:11 <=0.5 Sensitive Susceptible Final Gentamicin 05/18/2024 14:11 <=2 Sensitive Susceptible Final Levofloxacin 05/18/2024 14:11 <=0.5 Sensitive Susceptible Final Meropenem 05/18/2024 14:11 <=1 Sensitive Susceptible Final Piperacillin/Tazobacta m 05/18/2024 14:11 <=8 Sensitive Susceptible Final Tetracycline 05/18/2024 14:11 8 Intermediate Intermediate Final Tobramycin 05/18/2024 14:11 <=2 Sensitive Susceptible Final Sulfa/Trimethoprim 05/18/2024 14:11 <=0.5/9.5 Sensitive Susc eptible Final Organism 05/18/2024 14:11 4+ Enterococcus faecalis Final METHOD 05/18/2024 14:11 Microscan ALEXANDREA-ug/ml (MARY) Final Ampicillin 05/18/2024 14:11 <=2 Sensitive Susceptible Final Daptomycin 05/18/2024 14:11 1 Sensitive Susceptible Final Penicillin 05/18/2024 14:11 2 Sensitive Susceptible Final Vancomycin 05/18/2024 14:11 1 Sensitive Susceptible Final Organism 05/20/2024 08:22 4+ CHRYSEOBACTE RIUM (FLAVOBACTERIUM) INDOLOGENES Final METHOD 05/20/2024 08:22 Microscan ALEXANDREA-ug/ml (MARY) Final Amikacin 05/20/2024 08:22 >32 Resistant Resistant Final Aztreonam 05/20/2024 08:22 >16 Resistant Resistant Final Cefepime 05/20/2024 08:22 >16 Resistant Resistant Final Ceftazidime 05/20/2024 08:22 >16 Resistant Resistant Final Ceftriaxone 05/20/2024 08:22 >32 Resistant Resistant Final Gentamicin 05/20/2024 08:22 >8 Resistant Resistant Final Meropenem 05/20/2024 08:22 >8 Resistant Resistant Final Piperacillin/Tazobacta m 05/20/2024 08:22 16 Sensitive Susceptible Final Tobramycin 05/20/2024 08:22 >8 Resistant Resistant Final Sulfa/Trimethoprim 05/20/2024 08:22 <=0.5/9.5 Sensitive Susc eptible Final Performing Location [facility] [address] [place] [address]
--- OUTSIDE RECORDS SUMMARY | 2024-11-07 08:08 | External Medical Summary | Summary of Care ---
Author Name Unknown Organization [facility] Address [address] [place] [address] Phone [phone] Care Team Providers Care Rack Puller Name Role Phone Eron Tovar DO Primary Care Provid er Reason for Visit * Reason Comments Outpatient Testing Encounter Details Date Type Department Care Team (Late st Contact Info) Description 05/17/2024 9:50 AM EDT Laboratory [facility], [facility] [address] [facility] [phone] [facility] [address] [facility] [address] Anemia, unspecified type Allergies No known active allergiesdocumented as of this encounter (statuses as of 05/17/2024) Medications Medication Sig Dispensed Refills Start Date [...] the morning. In the morning.. 11/19/2023 Active Yasuu Ultra 2 w/Device Kit Check blood sugars [...] or Pain, Severe. 40 Tablet 04/13/2024 Active documented as of this encounter (statuses as of 05/17/2024) Active Problems Problem Noted Date Diagnosed Date [...] to breakdown of skin 09/27/2023 Atherosclerosis of unga co ronary artery without angina pectoris 02/09/2023 [...] (AAA) without rupture 06/06/2020 Unspecified atherosclerosis of unga arteries of extremities, bilateral legs 02/15/2019 Type [...] as of this encounter (statuses as of 05/17/2024) Resolved Problems Problem Noted Date Diagnosed Date Resolved Date Cellulitis of left lower extremity 12/23/2021 12/25/2023 Type 2 diabetes mellitus wit h hemoglobin A1c goal of less than 7.5% 11/14/2019 01/14/2021 Skin ulcer of toe of left fo ot, limited to breakdown of skin 10/13/2018 02/15/2019 Coronary artery disease invo lving unga heart without angina pectoris 06/01/2018 11/10/2021 DM type 2 causing neurological disease 01/24/2018 01/14/2021 Type 2 diabetes mellitus wit h diabetic nephropathy, without long-term current use of insulin 09/08/2017 09/08/2017 Atherosclerotic heart diseas e of unga coronary artery with unspecified angina pectoris 09/08/2017 [...] as of this encounter (statuses as of 05/17/2024) Immunizations Name Administration Dates Next Due COVID-19 [...] No 12/27/2023 documented as of this encounter Plan of Treatment Upcoming Encounters Date Type Department Care Team (Late st Contact Info) Description 07/19/2024 10:20 AM EDT Office Visit [facility] [address] [place] [phone] Yury Cash MD [address] [place] [phone] 08/06/2024 2:45 PM EDT Office Visit Dermatology [facility] [place] [address] [place] [address] Jim Ahuja MD [address] [place] [address] [id number] 11/21/2024 8:30 AM EST Office Visit Cardiology, [facility] [address] [facility] [place] [address] Sajan Griffith PA-C [address] [place] [address] Pending Results Name Type Priority Associated Diagnoses Date /Time CBC Lab Routine Anemia, unspecified type 05/17/2024 9:43 AM EDT IRON SCREEN, INCLUDING TIBC Lab Routine Anemia, unspecified type 05/17/2024 9:43 AM EDT FERRITIN Lab Routine Anemia, unspecified type 05/17/2024 9:43 AM EDT VITAMIN B12 Lab Routine Anemia, unspecified type 05/17/2024 9:43 AM EDT MAGNESIUM Lab Routine Anemia, unspecified type 05/17/2024 9:43 AM EDT Health Maintenance Due Date Last [...] 08/11/2024 02/10/2024, 01/29, 01/06/2024, Additional history exists Diabetic Eye Exam 10/17/2024 10/17/2023, , 10/17/2023, Additional history exists CKD PHOS USE SMARTSET 15310 02/09/202501/29, 02/10/2024, 01/06/2024, Additional history exists B-12 03/07/2025 03/07/2024, 09/0 04/2023, 05/07/2022, Additional history exists CKD HGB USE SMARTSET 97238 03/07/202503/07, 03/07/2024, 02/20/2024, Additional history exists Depression Screening 04/24/2025 04/24/2024, 04/21/20 15 DTaP,Tdap,and Td Vaccines (3 - Td or [...] as of this encounter Visit Diagnoses Diagnosis Anemia, unspecified type documented in this encounter [...] the patient have Health Care Power of Cyber Operator? Yes, not currently available Care Teams Rack Puller Relationship Specialty Start Date End Date Eron Tovar DO [address] [place] [address] [phone] PCP - General Internal Medicine 01/14/21 documented as of this encounter
--- OUTSIDE RECORDS SUMMARY | 2024-11-07 08:08 | External Medical Summary ---
Author Name Unknown Address Unknown Organization K01:[facility] - [address] [place] [address] Laboratory Report Ordering Provider Test Date Status DIANA DIEGOALISSA 05/17/2024 09:43:50 Final Observation Date Value Abnormality Reference (Units ) Status Magnesium 05/17/2024 09:43:50 2.0 1.5-2.6 (m g/dL) Final Performing Location [facility] - [address] [place] [address]
--- OUTSIDE RECORDS SUMMARY | 2024-11-07 08:08 | External Medical Summary | Summary of Care ---
Author Name Unknown Organization [facility] Address [address] [address] Phone [phone] Care Team Providers Care Property Manager Name Role Phone Eron Tovar DO Primary Care Provid er Reason for Visit * Reason Comments Follow Up Encounter Details Date Type Department Care Team (Late st Contact Info) Description 05/17/2024 9:00 AM EDT Office Visit Cardiology, 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, bilateral legs 02/15/2019 Type [...] 10/13/2018 02/15/2019 Coronary artery disease invo lving sycuan heart without angina pectoris 06/01/2018 11/10/2021 DM type 2 causing neurological disease 01/24/2018 01/14/2021 Type 2 diabetes mellitus wit h diabetic nephropathy, without long-term current use of insulin 09/08/2017 09/08/2017 Atherosclerotic heart diseas e of sycuan coronary artery with unspecified angina pectoris 09/08/2017 [...] mRNA, LNP-s, No Pre serve, 2-Dose Series (ECO) 08/13/2021,01/22/2021,12/27/2020 Covid-19, Mrna, Lnp-s, Pf, B ivalent, [...] Sign Reading Time Taken Comments Blood Pressure 130/80 05/17/2024 8:50 AM EDT Pulse 68 05/17/2024 8:50 AM EDT Temperature - - Respiratory Rate - - Oxygen Saturation 93% 05/17/2024 8:50 AM EDT Inhaled Oxygen Concentration - - Weight 99.3 kg (219 lb) 05/17/2024 8:50 AM EDT Height - - Body Mass Index 31.42 04/25/2024 9:18 AM EDT documented in this [...] as of this encounter Progress Notes * Sajan Griffith PA-C - 05/17/2024 9:00 AM EDT Date of Service: 05/17/2024 History of Present Illness: Gomez Suarez is a 88 year old male who presents today for cardiology follow-up evaluation. Patient previously followed by Dr. Vieira. Last visit was with Dr. Hurtado. The patient is being evaluated by the undersigned for the first time today. No chest pain. Stable exertional dyspnea. No palpitations. Sleeps mostly on his side, without orthopnea or PND. No lightheadedness, dizziness, near syncope, or syncope. No epistaxis, hemoptysis, melena, hematochezia, or hematuria. Following with [facility] Vascular Surgery, status post right lower extremity surgical intervention in January. Saw Dr. Collazo, podiatry, yesterday, prescribed an antibiotic for left lower extremity recurrent cellulitis with improvement in erythema reported today. No fevers or chills. + Ambulatory dysfunction, multiple falls. 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, bilateral legs ([facility]) Abdominal aortic aneurysm (AAA) without rupture ([facility]) Chronic kidney disease, stage 3a ([facility]) 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 ([facility]) Atherosclerosis of sycuan coronary artery without angina pectoris Skin ulcer of right ankle, limited to breakdown of skin ([facility]) Cellulitis COVID Elevated lactic acid level Fever, unknown origin Hematuria History of tonsillectomy Hypomagnesemia Hypoxia PVD (peripheral vascular disease) ([facility]) Recurrent falls Retention of urine Urinary tract infection Pneumonia of left lower lobe due to infectious organism Elevated troponin Generalized weakness Encephalopathy acute Physical deconditioning Ambulatory dysfunction Past Medical History: Diagnosis Date AAA (abdominal aortic aneurysm) ([facility]) 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 Aortic stenosis CAD (coronary artery disease) CKD (chronic kidney disease) stage 3, GFR 30-59 ml/min ([facility]) 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 DM [...] performed by Bharath Monaco MD at OR [facility] REMOVAL OF TONSILS, UNDER AGE 13 approx age 11 SACROILIAC JOINT INJECT W/GUIDANCE Bilateral 05/09/2023 INJECTION SACROILIAC JOINT performed by Roberto Li DO at OR [facility] SACROILIAC JOINT INJECT W/GUIDANCE Bilateral 09/29/2023 INJECTION SACROILIAC JOINT performed by Roberto Li DO at OR [facility] Family History Problem Relation Name Age [...] level: Not on file Occupational History Occupation: [employer] Employer: [employer] Tobacco Use Smoking status: Former Current packs/day: 0.00 Average packs/day: 1 pack/day for 37.0 years (37.0 ttl pk-yrs) Types: Cigarettes, Cigars Start date: 10/31/1952 Quit date: 10/31/1989 Years since quittin.5 Smokeless tobacco: Never Tobacco comments: Started smoking age - 17 - 18 Vaping Use Vaping status: Never Used Substance and Sexual Activity Alcohol use: No Drug use: Never Complete Review of Systems is as stated above, negative, or noncontributory. Review of patient's allergies indicates: No Known Allergies Current Outpatient Medications Medication Sig Dispense Refill aspirin enteric coated 81 MG TBEC Take 1 Tablet by mouth in the morning. SCADA AccessTOUCH DELICA LANCETS FINE MISC Check blood sugars once daily, E11.9, not using insulin, 100 Each3 Multiple Vitamin (ONE-A-DAY MENS) Tablet Take 1 Tablet by mouth in the morning. Xplore TechnologiesTouch Ultra Blue In Vitro Strip (Glucose Blood) [...] mouth every other day.) 90 Capsule 2 Atorvastatin Calcium 40 MG Oral Tablet (Lipitor) TAKE ONE TABLET BY MOUTH EVERY DAY 100 Tablet 1 metFORMIN HCl ER 500 MG Oral [...] mouth in the morning. In the morning.. MediaWheel Ultra 2 w/Device Kit Check blood sugars once daily 1 Kit 0 Metoprolol Succinate ER 50 MG Oral Tablet Extended Release 24 Hour (toPROL XL) TAKE ONE TABLET BY MOUTH EVERY DAY AT NOON 90 Tablet 3 traMADol HCl 50 MG Oral Tablet (Ultram) Take 1 Tablet by mouth every 6 hours as needed for Pain, Moderate or Pain, Severe. 40 Tablet 0 No current facility-administered medications for this visit. OBJECTIVE/PHYSICAL EXAMINATION: BP 130/80 | Pulse 68 | Wt 99.3 kg (219 lb) | SpO2 93% | BMI 31.42 kg/m | BSA 2.21 m General: Alert and oriented x3. No acute distress. Pleasant. Comfortable. Cooperative. Skin: No rash Eyes: PER. Conjunctiva pink, sclera clear. HENT: Normocephalic. Atraumatic. Neck: Bilateral carotid bruits. No JVD. Heart: RRR. Grade II-III/ systolic ejection murmur. No diastolic murmur Lungs: Clear to auscultation. No wheeze. No rales. No rhonchi Abdomen: +BS. Soft. Nontender. No masses. No organomegaly. Extremities: Multiple surgical scars on nubia eright leg. 1+ right lower extremity swelling. The leg less is erythematous (improved compared to yesterday as per patient) and cool to touch. I was not able to feel a posterior tibial or dorsalis pedis pulse on either leg. No cyanosis. No clubbing. Radial pulses were 2/4 bilaterally. Limited neurological examination: No focal deficit. Data: January 23, 2024 TTE Interpretation Summary (as [...] as follows: Mild mitral stenosis is present ASSESSMENT AND RECOMMENDATIONS/PLAN: Coronary artery disease status post drug-eluting stent placement to the mid-RCA at [facility] in May 2016. Stable symptoms. Continue appropriate medical management. Paroxysmal atrial fibrillation with rapid ventricular response in the setting of line sepsis. Severe left atrial enlargement noted on recent echocardiography. Concern for asymptomatic paroxysmal atrial fibrillation recurrence noted and discussed. Referral for ambulatory EKG discussed, electing not to proceed as results would not likely interchange agent at this time. Patient is asymptomatic. Risks of anticoagulation appear to be greater than the benefit noting the anemia, ambulatory dysfunction, multiple falls. Mild valvular disease. Echocardiography results discussed in detail today. Enlarged aortic root 4.5 cm via December 2023 resting echocardiogram 5.0 cm ascending aortic aneurysm via December [address] noted in discussed in detail with patient and today. Via shared decision-making, we will manage conservatively. He does not appear to be suffering the morbidity of a time bomb mentality. Hypertension controlled. Dyslipidemia. LDL cholesterol 70 mg/dL on 07/07/2023. On atorvastatin 40 mg/day. Followed by PCP. Recommend targeting an optimal LDL cholesterol of less than 55 mg/dL. Peripheral vascular disease, status post right popliteal to common plantar bypass grafting in January2024. Followed by [facility] Durga Type 2 diabetes mellitus Stage 3 chronic kidney disease Anemia. Per chart review, this is felt to be anemia of chronic disease however recent laboratory work did suggest iron deficiency along with borderline B12. Repeat CBC, iron studies, B12 requested. Probable future supplementation discussed. Mr. Suarez states that he understands the proposed plan and verbally consents. Patient to call withany questions, concerns, etc. Cardiac follow-up in 6 months or as needed. ER with emergencies. Sajan Griffith PA-C Department of Cardiology I spent a total of 30-39 minutes (exact time 33 mins) on the date of service in preparation, delivery, and documentation of the care provided to Gomez Suarez excluding any time spent in the performance of separately billed services. This visit involved medical care services related to at least oneserious condition or complex condition requiring ongoing care. This chart was completed in part util [employer] Speech Voice Recognition Software. Grammatical errors, random word insertions, prounoun errors, and incomplete sentences are an occasional consequence of this system due to software limitations, ambient noise, and hardware issues. Any formal questions or concerns about the content, text, or information contained within the body of this dictation should be directly addressed to the provider for clarification. documented in this encounter Nursing Notes * Lisy Velasquez CMA - 05/17/2024 8:48 AM EDT Examination Room: 1 Name: Gomez Suarez Date of : (1935) Reason for Visit: 6m Interim Hospitalization(s): January - foot infection Problems/Concerns: denied Chest Pain/SOB: denied My [facility] [...] Upcoming Encounters Date Type Department Care Team ([facility] st Contact Info) Description 07/19/2024 10:20 AM EDT Office Visit [facility] [address] [place] [phone] Yury Cash MD [address] [place] [phone] 08/06/2024 2:45 PM EDT Office Visit Dermatology [facility] [address] [place] [address] Jim Ahuja MD [address] [place] [address] 11/21/2024 8:30 AM EST Office Visit Cardiology, [facility] [address] [place] [address] Sajan Griffith PA-C [address] [place] [id number] Pending Results Name Type Priority Associated Diagnoses Date /Time CBC Lab Routine Anemia, unspecified type 05/17/2024 9:43 AM EDT IRON SCREEN, INCLUDING TIBC Lab Routine Anemia, unspecified type 05/17/2024 9:43 AM EDT FERRITIN Lab Routine Anemia, unspecified type 05/17/2024 9:43 AM EDT VITAMIN B12 Lab Routine Anemia, unspecified type 05/17/2024 9:43 AM EDT MAGNESIUM Lab Routine Anemia, unspecified type 05/17/2024 9:43 AM EDT Scheduled Orders Name Type Priority Associated Diagnoses Orde r Schedule CBC Lab Routine Anemia, unspecified type Expected: 05/17/2024, Expires: 05/17/2025 IRON SCREEN, INCLUDING TIBC Lab Routine Anemia, unspecified type Expected: 05/17/2024, Expires: 05/17/2025 FERRITIN Lab Routine Anemia, unspecified type Expected: 05/17/2024, Expires: 05/17/2025 VITAMIN B12 Lab Routine Anemia, unspecified type Expected: 05/17/2024, Expires: 05/17/2025 MAGNESIUM Lab Routine Anemia, unspecified type Expected: 05/17/2024, Expires: 05/17/2025 Health Maintenance Due Date Last Done Comments [...] Additional history exists CKD PHOS USE SMARTSET 96440 02/09/202501/29, 02/10/2024, 01/06/2024, Additional history exists B-12 03/07/2025 03/07/2024, 09/0 04/2023, 05/07/2022, Additional history exists CKD HGB USE SMARTSET 16087 03/07/202503/07, 03/07/2024, 02/20/2024, Additional history exists Depression [...] this encounter Visit Diagnoses Diagnosis Anemia, unspecified type- Primary Paroxysmal A-fib (HCC) Atrial fibrillation Nonrheumatic aortic valve stenosis Aortic valve disorders Coronary artery disease involving sycuan coronary artery of sycuan heart without angina pectoris Ascending aorta enlargement (HCC) Other specified disorders of arteries and arterioles S/P right coronary artery (RCA) stent placement documented in this encounter Advance Directives * [...] the patient have Health Care Power of Cdl Program Coordinator? Yes, not currently available Care Teams Property Manager Relationship Specialty Start Date End Date Eron Tovar DO [address] [place] [phone] PCP - General Internal Medicine 01/14/21 documented as of this encounter"
--- OUTSIDE RECORDS SUMMARY | 2024-11-07 08:08 | External Medical Summary ---
Author Name Unknown Address Unknown Organization K01:[facility] - [address] [place] [address] Laboratory Report Ordering Provider Test Date Status ALISSA DIEGO 05/17/2024 09:43:50 Final Observation Date Value Abnormality Reference (Units ) Status Iron 05/17/2024 09:43:50 44 Below low normal 45-176 (ug/dL) Final Iron-binding capacity 05/17/2024 09:43:50 453 Above high normal 250-425 (ug/dL) Final Transferrin Sat % 05/17/2024 09:43:50 10 Below low normal 15-55 (%) Final Performing Location [facility] - [address] [place] [address]
--- OUTSIDE RECORDS SUMMARY | 2024-11-07 08:08 | External Medical Summary ---
Author Name Unknown Address Unknown Organization K01:[facility] - [address] [place] [address] Laboratory Report Ordering Provider Test Date Status ALISSA DIEGO 05/17/2024 09:43:50 Final Observation Date Value Abnormality Reference (Units ) Status Vitamin B12 05/17/2024 09:43:50 [phone] (pg/mL) Final Performing Location [facility] - [address] [place] [address]
--- OUTSIDE RECORDS SUMMARY | 2024-11-07 08:08 | External Medical Summary | Summary of Care ---
Author Name Unknown Organization [facility] Ambulatory Address [address] [place] [address] Phone Care Team Providers Care Alarm Technician Name Role Phone Rosario Black PA-C Unavailable [phone] Jacob Brown DPM Unavailable [phone] Provider, Generic External Data Unavailable Unavailable Provider, Historical Unavailable Unavailable Hu Pfeiffer MD Unavailable [phone] Gomez Collazo DPM Unavailable [phone] Eron Tovar DO Primary Care Provid er Source Comments This information has been disclosed to you from records protected by federal confidentiality rules (42 CFR part 2). The federal rules prohibit you from making any further disclosure of information inthis record that identifies a patient as having or having had a substance use disorder either directly, by reference to publicly available information, or through verification of such identification by another person unless further disclosure is expressly permitted by the written consent of the individual whose information is being disclosed or as otherwise permitted by 42 CFR part 2. A general authorization for the release of medical or other information is NOT sufficient for this purpose (seesection 2.31). The federal rules restrict any use of the information to investigate or prosecute with regard to a crime any patient with a substance use disorder, except as provided at sections 2.12(c)(5) and 2.65.[facility] Ambulatory Reason for Visit * Reason Comments Ulcer Right ankle Encounter Details Date Type Department Care Team (Late st Contact Info) Description 05/16/2024 1:30 PM EDT Office Visit [facility] [place] [address] [facility] [place] [phone] General Agent: Missy Saucedo John Robert, DPM [address] [facility] [place] [phone] 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) (Primary Dx); Type 2 diabetes mellitus with diabetic neuropathy, without long-term current use of insulin (HCC); 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); Left foot pain; 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); Cellulitis of left ankle; Cellulitis of fifth toe of left foot Allergies No known active allergiesdocumented as of this encounter (statuses as of 05/20/2024) Medications Medication Sig Dispensed Refills Start Date End Date Status allopurinoL (ZYLOPRIM) 300 mg oral tablet at bedtime 10/14/2021 Active aspirin 81 mg oral chewable tablet Take 1 tablet by mouth daily Active atorvastatin (LIPITOR) 40 mg oral tablet 12/05/2021 Active gabapentin (NEURONTIN) 600 mg oral tablet 600 mg 3 times a day 10/14/2021 Active metoprolol succinate (TOPROL-XL) 50 mg oral extended-release tablet daily 10/14/2021 Active nitroglycerin (NITROSTAT) 0.4 mg sublingual tablet 10/05/2021 Active omeprazole (PRILOSEC) 20 mg oral delayed-release capsule TAKE 1 CAPSULE BY MOUTH IN THE MORNING 1 HOUR BEFORE THE FIRST MEAL OF THE DAY 11/26/2021 Active multivitamin (DAILY VITAMIN) oral tablet Take 1 tablet by mouth daily Active meloxicam (MOBIC) 15 mg oral tablet Take 1 tablet by mouth daily 30 tablet 2023 Active mirtazapine (REMERON) 15 mg oral tablet Take 1 tablet by mouth at bedtime 12/30/2023 Active mirabegron (MYRBETRIQ) 50 mg oral tablet extended release 24 hr Take 50 mg by mouth 11/19/2023 Active metFORMIN (GLUCOPHAGE-XR) 500 mg oral extended-release tablet 01/09/2024 Active glucose monitoring kit Check blood sugars once daily 01/31/2024 Active ONETOUCH ULTRA2 METER misc 01/31/2024 Active cefdinir (OMNICEF) 300 mg oral capsule Take 1 capsule by mouth every 12 hours for 10 days 20 capsule 05/16/2024 05/26/2024 Active sulfamethoxazole- trimethoprim (BACTRIM DS) 800-160 mg oral tablet Take 1 tablet by mouth 2 times a day for 10 days 20 tablet 05/20/2024 05/30/2024 Active cephalexin (KEFLEX) 500 mg oral capsule Take 1 capsule by mouth 3 times a day 43 capsule 03/21/2024 05/16/2024 Discontinued (Completed) Hospital, Clinic, or Other Facility Administered Medication Ordered Dose Route Frequency Start Date End Date Status cefTRIAXone (ROCEPHIN) injection 1 gIndications: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) 1 g IM Once 05/16/2024 05/16/2024 E nded documented as of this encounter (statuses as of 05/20/2024) Active Problems Problem Noted Date Diagnosed Date PVD (peripheral vascular disease) 12/16/2021 Last Assessment & Plan: Patient sent back [...] (AAA) without rupture 06/06/2020 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, bilateral legs 02/15/2019 Type 2 diabetes mellitus wit h diabetic neuropathy, without long-term current use of insulin 09/08/2017 S/P right coronary artery (RCA) stent placement 09/20/2016 Paroxysmal atrial fibrillation 05/17/2016 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 10/14/2014 History of malignant melanoma of skin 08/16/2011 Overview: Back - , no SLN, unknown depth Hyperlipidemia associated with type 2 diabetes jeniffer pisano 09/11/2010 After cataract not obscuring vision 04/07/2009 Overview: ICD-10 update of inactive term documented as of this encounter (statuses as of 05/20/2024) Social History Tobacco Use Types Packs/Day Years Used Date Smoking Tobacco: Former Cigarettes 0.5 15 Passive Smoke Exposure: Past Smokeless Tobacco: Never Alcohol Use Standard Drinks/Week Comments Not Currently 0 (1 standard drink = 0.6 oz pur e alcohol) quit 10 years Depression Answer Date Recorded PHQ-2 Screening Result Negative PHQ Result Negative 04/04/2024 Sex and Gender Information Value Date Recorded Sex Assigned at Not on file Gender Identity Not on file Sexual Orientation Not on file documented as of this encounter Last Filed Vital Signs Vital Sign Reading Time Taken Comments Blood Pressure - - Pulse - - Temperature - - Respiratory Rate - - Oxygen Saturation - - Inhaled Oxygen Concentration - - Weight 98 kg (216 lb) 05/16/2024 1:44 PM EDT Height 177.8 cm (5' 10") 05/16/2024 1:44 PM EDT Body Mass Index 30.99 05/16/2024 1:44 PM EDT documented in this encounter Progress Notes * Leonie Etienne - 05/16/2024 1:30 PM EDT Review of Systems: Constitutional: Negative. HENT: Negative. Eyes: Negative. Respiratory: Negative. Cardiovascular: Negative. Gastrointestinal: Negative. Musculoskeletal: Negative. Skin: Negative. Neurological: Negative. Allergy/Immunology: Negative. Psychiatric/Behavioral: Negative. Endocrine: Positive for diabetes. Hematologic/Lymphatic: Negative. Genitourinary: Negative. * Gomez Collazo DPM - 05/16/2024 1:30 PM EDT Wound Note Chief Complaint: Ulcer (Right ankle) Nursing Notes Leonie Etienne SignedEncounter Date: TueMay 16, 2024 1:30 PM Patient is here for his right ankle. He states that when the ankle is touched the bone aches. He states that the right great toe is throbbing. He went on to say that the left 5th toe has an opening on it. He states that he was treated for cellulitis in the left foot but he is done with the ABX. He states that the foot is red and warm to the touch. HPI: Patient is a 88 year old male who presents for evaluation treatment. Patient presents with chief complaint of Ulcer (Right ankle) Patient has chronic right ankle wound open for 7 months. Patient is concerned with left foot swelling, warmth, redness.. Patient has history of PVD with arterial sclerosis. ROS: Review of Systems: Constitutional: Negative. HENT: Negative. Eyes: Negative. Respiratory: Negative. Cardiovascular: Negative. Gastrointestinal: Negative. Musculoskeletal: Negative. Skin: Negative. Neurological: Negative. Allergy/Immunology: Negative. Psychiatric/Behavioral: Negative. Endocrine: Positive for diabetes. Hematologic/Lymphatic: Negative. Genitourinary: Negative. Past Medical History: Past Medical History: Diagnosis Date Diabetes mellitus (HCC) Essential hypertension GERD (gastroesophageal reflux disease) Melanoma (HCC) Past Surgical History: Past Surgical History: Procedure Laterality Date melanoma skin surgery back Right femoral to tibial bypass Right 02/16/2024 Dr. Pfeiffer Family History: family history is not on file. Social History: Social History Socioeconomic History Marital status: Tobacco Use Smoking status: Former Current packs/day: 0.50 Average packs/day: 0.5 packs/day for 15.0 years (7.5 ttl pk-yrs) Types: Cigarettes Passive exposure: Past Smokeless tobacco: Never Vaping Use Vaping status: never used Substance and Sexual Activity Alcohol use: Not Currently Comment: quit 10 years Drug use: Never Medications: Current Outpatient Prescriptions Medication Sig allopurinoL (ZYLOPRIM) 300 mg oral tablet at bedtime aspirin 81 mg oral chewable tablet Take 1 tablet by mouth daily atorvastatin (LIPITOR) 40 mg oral tablet cefdinir (OMNICEF) 300 mg oral capsule Take 1 capsule by mouth every 12 hours for 10 days gabapentin (NEURONTIN) 600 mg oral tablet 600 mg 3 times a day glucose monitoring kit Check blood sugars once daily meloxicam (MOBIC) 15 mg oral tablet Take 1 tablet by mouth daily metFORMIN (GLUCOPHAGE-XR) 500 mg oral extended-release tablet metoprolol succinate (TOPROL-XL) 50 mg oral extended-release tablet daily mirabegron (MYRBETRIQ) 50 mg oral tablet extended release 24 hr Take 50 mg by mouth mirtazapine (REMERON) 15 mg oral tablet Take 1 tablet by mouth at bedtime multivitamin (DAILY VITAMIN) oral tablet Take 1 tablet by mouth daily nitroglycerin (NITROSTAT) 0.4 mg sublingual tablet omeprazole (PRILOSEC) 20 mg oral delayed-release capsule TAKE 1 CAPSULE BY MOUTH IN THE MORNING 1 HOUR BEFORE THE FIRST MEAL OF THE DAY ONETOUCH ULTRA2 METER misc sulfamethoxazole-trimethoprim (BACTRIM DS) 800-160 mg oral tablet Take 1 tablet by mouth 2 times a day for 10 days Allergies: No Known Allergies General Physical Exam: Ht 5' 10" (177.8 cm) | Wt 216 lb (98 kg) | BMI 30.99 kg/m Body mass index is 30.99 kg/m. GEN: Alert and oriented. Patient appears well-developed and well-nourished. NEUROLOGIC: Patient is alert and oriented. No motor deficiencies appreciated PSYCH: Normal affect and demeanor Physical Exam: INTEGUMENT: Atrophic changes noted to legs and feet. Right full-thickness ankle ulcer. Left fifth toe Partial-thickness ulcer. Erythematous right foot with increasing warmth. VASCULAR: Dorsalis pedis and posterior tibial pulses palpable bilateral. Capillary refill time within normal limits. Absence of leg and pedal hair. Proximal distal cooling within normal limits. MUSCULOSKETETAL: Manual muscle test elicits 5 out of 5. Digital contractures 2 through 5 adductovarus fifth toes. NEUROLOGIC: Vibratory sensation absent bilateral to lower extremities. Haworth Lidia 5.07 monofilament elicits 4 out of 10. CONSTITUTIONAL: Patient denies constitutional symptoms PSYCH: Normal affect and demeanor Focused Exam: Wound location: Right lateral ankle Wound base color and depth: Full-thickness into subcutaneous tissue. wound size (cm): 1.7 x 1.7 x 0.2 cm Odor: No malodor Drainage: None Undermining: None Borders: Macerated with hyperkeratotic rim Wound location: Right lateral ankle Wound base color and depth: Full-thickness into subcutaneous tissue. wound size (cm): 1.7 x 1.7 x 0.2 cm Odor: No malodor Drainage: None Undermining: None Borders: Macerated with hyperkeratotic rim Gram Stain Rare Polys 2+ Gram positive cocci in pairs and chains Rare Gram Negative Rods Rare Yeast [facility] Culture 4+ Serratia marcescens 4+ Enterococcus faecalis 4+ CHRYSEOBACTERIUM (FLAVOBACTERIUM) INDOLOGENES 3+ Julia albicans [facility] Report Status Final Result 05/20/2024 [facility] Organism 4+ Serratia marcescens [facility] Organism 4+ Enterococcus faecalis [facility] Organism 4+ CHRYSEOBACTERIUM (FLAVOBACTERIUM) INDOLOGENES [facility] Susceptibility 4+ enterococcus faecalis (microscan roma-ug/ml (janak)) 4+ chryseobacterium (flavobacterium) indologenes (microscan roma-ug/ml (janak)) 4+ serratia marcescens (microscan roma-ug/ml (janak)) Not Specified Not Specified Not Specified Amikacin >32 Resistant Ampicillin <=2 Sensitive Aztreonam >16 Resistant Cefepime >16 Resistant <=2 Sensitive Ceftazidime >16 Resistant <=1 Sensitive Ceftriaxone >32 Resistant 2 Intermediate Ciprofloxacin <=0.25 Sensitive Daptomycin 1 Sensitive Ertapenem <=0.5 Sensitive Gentamicin >8 Resistant <=2 Sensitive Levofloxacin <=0.5 Sensitive Meropenem >8 Resistant <=1 Sensitive Penicillin 2 Sensitive Piperacillin/Tazobactam 16 Sensitive <=8 Sensitive Sulfa/Trimethoprim <=0.5/9.5 Sensitive <=0.5/9.5 Sensitive Tetracycline 8 Intermediate Tobramycin >8 Resistant <=2 Sensitive Vancomycin 1 Sensitive Specimen Collected: 05/16/24 4:23 PM Last Resulted: 05/20/24 8:22 AM Assessment/Plan: Patient seen, evaluated, and treated. Significant time was spent in [id number] discussion reviewing symptoms, diagnosis, and treatment. Patient denies constitutional symptoms. Reviewed left fifth toe wound and erythematous left foot and ankle consistent with cellulitis. Patient does have history of gout and this was reviewed. There is low suspicion of gout flareup versus infection. Dispensed prescription for left foot x-ray. Wound culture taken of left fifth toe interdigital ulcer. Dispensed prescription for Omnicef and Bactrim with instructions on use. 1 g of Rocephin injected intramuscularly. Wounds cleansed with betadine followed by normal saline. Application of of aquacel followed by DSD.Dispensed Dressing supplies. . Patient to return to office in 3 weeks or call sooner if symptoms arise. Conservative wound care was rendered. We discussed the pertinent risks, benefits, and an alternative to the patients considered procedure, as well as the patients expectations.Surgery operations have subjective outcomes which may be dependent upon patient anatomy and expectations. While a specific result cannot be guaranteed and harry-operative problems may occur, every effort will be made to deliver a satisfactory result in a safe and ethical manner. Diagnosis ICD-10-CM Plan 1. 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 Type 2 diabetes mellitus with diabetic neuropathy, without long-term current use of insulin ([facility]) E11.40 XR FOOT MINIMUM 3 VIEWS LEFT 3. 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 Left foot pain M79.672 XR FOOT MINIMUM 3 VIEWS LEFT 5. Diabetic ulcer of left fifth toe ([facility]) E11.621 XR FOOT MINIMUM 3 VIEWS LEFT L97.529 cefTRIAXone (ROCEPHIN) injection 1 g AEROBIC AND ANAEROBIC CULTURE DEEP WOUND CULTURE 6. Cellulitis of left ankle L03.116 XR FOOT MINIMUM 3 VIEWS LEFT 7. Cellulitis of fifth toe of left foot L03.032 XR FOOT MINIMUM 3 VIEWS LEFT Orders Placed This Encounter XR FOOT MINIMUM 3 VIEWS LEFT AEROBIC AND ANAEROBIC CULTURE DEEP WOUND CULTURE cefdinir (OMNICEF) 300 mg oral capsule cefTRIAXone (ROCEPHIN) injection 1 g sulfamethoxazole-trimethoprim (BACTRIM DS) 800-160 mg oral tablet No follow-ups on file. The above report was generated using voice recognition software. It may contain grammatical, syntax, or spelling errors. documented in this encounter Nursing Notes * Leonie Etienne - 05/16/2024 1:30 PM EDT Patient is here for his right ankle. He states that when the ankle is touched the bone aches. He states that the right great toe is throbbing. He went on to say that the left 5th toe has an opening on it. He states that he was treated for cellulitis in the left foot but he is done with the ABX. He states that the foot is red and warm to the touch. documented in this encounter Plan of Treatment Scheduled Orders Name Type Priority Associated Diagnoses Orde r Schedule XR FOOT MINIMUM 3 VIEWS LEFT Imaging Routine Type 2 diabetes mellitus with diabetic neuropathy, without long-term current use of insulin (HCC) Left foot pain 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) Cellulitis of left ankle Cellulitis of fifth toe of left foot 1 Occurrences starting 05/16/2024 until 05/16/2025 AEROBIC AND ANAEROBIC CULTURE Lab [facility] 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) Ordered: 05/16/2024 Health Maintenance Due Date Last Done Comments Diabetic Foot Exam 1936 Diabetic Retinal Exam 1936 Full Body Skin Exam 1936 Lipid Profile 1936 Medicare Annual Wellness Visit 1936 Pneumococcal Vaccine (1 of 2 - PCV) 1942 Urine Albumin Battery 1954 DTaP/Tdap/Td Vaccine (1 - Tdap) 1955 Shingles Vaccine (Recombinan t) (1 of 2) 1986 Hepatitis B Vaccine (1 of 3 - Risk 3-dose series) 1996 Hearing Screening 2001 Vision Exam 2001 COVID-19 Vaccine (5 - 2022-2 4 season) 2023 11/09/2022, 08/13/2021, 01/22/2021, Additional history exists Flu Vaccine (#1) 07/31/2024 HbA1c 08/11/2024 02/10/2024 Creatinine Serum 02/19/2025 02/20/2024, , 02/18/2024, Additional history exists Advance Directives 04/04/2029 04/04/2024 Depression Screening Completed 04/04/2024, 03/21/2024, 02/29/2024 documented as of this encounter Procedures Procedure Name Priority Date/Time Associated Diagnosis Comments DEEP WOUND CULTURE Routine 05/16/2024 4: 23 PM EDT 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) documented in this encounter Results * DEEP WOUND CULTURE (05/16/2024 4:23 PM EDT) Specimen Description L FOOT 05/16/2024 4:29 PM EDT [facility] [place] Special Requests None 05/16/2024 4:29 PM EDT [facility] [place] Gram Stain Rare Polys 2+ Gram positive cocci in pairs and chains Rare Gram Negative Rods Rare Yeast 05/17/2024 8:12 AM EDT [facility] Culture 4+ Serratia marcescens 4+ Enterococcus faecalis 4+ CHRYSEOBACTERIUM (FLAVOBACTERIUM) INDOLOGENES 3+ Julia albicans 05/18/2024 2:11 PM EDT [facility] Report Status Final Result 05/20/2024 05/20/2024 8:22 AM EDT [facility] Organism 4+ Serratia marcescens 05/18/2024 2:11 PM EDT [facility] Organism 4+ Enterococcus faecalis 05/18/2024 2:11 PM EDT [facility] Organism 4+ CHRYSEOBACTERIUM (FLAVOBACTERIUM) INDOLOGENES 05/20/2024 8:22 AM EDT [facility] Wound (Left Foot) 05/16/2024 4:23 PM EDT 05/16/2024 4:28 PM EDT Narrative Organism Antibiotic Method Susceptibility 4+ serratia marcescens (microscan roma-ug/ml (janak)) Cefepime <=2: Sensitive 4+ serratia marcescens (microscan roma-ug/ml (janak)) Ceftazidime <=1: Sensitive 4+ serratia marcescens (microscan roma-ug/ml (janak)) Ceftriaxone 2: Intermediate 4+ serratia marcescens (microscan roma-ug/ml (janak)) Ciprofloxacin <=0.25: Sensitive 4+ serratia marcescens (microscan roma-ug/ml (janak)) Ertapenem <=0.5: Sensitive 4+ serratia marcescens (microscan roma-ug/ml (janak)) Gentamicin <=2: Sensitive 4+ serratia marcescens (microscan roma-ug/ml (janak)) Levofloxacin <=0.5: Sensitive 4+ serratia marcescens (microscan roma-ug/ml (janak)) Meropenem <=1: Sensitive 4+ serratia marcescens (microscan roma-ug/ml (janak)) Piperacillin/Tazobactam <=8: Sensitive 4+ serratia marcescens (microscan roma-ug/ml (janak)) Tetracycline 8: Intermediate 4+ serratia marcescens (microscan roma-ug/ml (janak)) Tobramycin <=2: Sensitive 4+ serratia marcescens (microscan roma-ug/ml (janak)) Sulfa/Trimethoprim <=0.5/9.5: Sensitive 4+ enterococcus faecalis (microscan roma-ug/ml (janak)) Ampicillin <=2: Sensitive 4+ enterococcus faecalis (microscan roma-ug/ml (janak)) Daptomycin 1: Sensitive 4+ enterococcus faecalis (microscan roma-ug/ml (janak)) Penicillin 2: Sensitive 4+ enterococcus faecalis (microscan roma-ug/ml (janak)) Vancomycin 1: Sensitive 4+ chryseobacterium (flavobacterium) indologenes (microscan roma-ug/ml (janak)) Amikacin >32: Resistant 4+ chryseobacterium (flavobacterium) indologenes (microscan roma-ug/ml (janak)) Aztreonam >16: Resistant 4+ chryseobacterium (flavobacterium) indologenes (microscan roma-ug/ml (janak)) Cefepime >16: Resistant 4+ chryseobacterium (flavobacterium) indologenes (microscan roma-ug/ml (janak)) Ceftazidime >16: Resistant 4+ chryseobacterium (flavobacterium) indologenes (microscan roma-ug/ml (janak)) Ceftriaxone >32: Resistant 4+ chryseobacterium (flavobacterium) indologenes (microscan roma-ug/ml (janak)) Gentamicin >8: Resistant 4+ chryseobacterium (flavobacterium) indologenes (microscan roma-ug/ml (janak)) Meropenem >8: Resistant 4+ chryseobacterium (flavobacterium) indologenes (microscan roma-ug/ml (janak)) Piperacillin/Tazobactam 16: Sensitive 4+ chryseobacterium (flavobacterium) indologenes (microscan roma-ug/ml (janak)) Tobramycin >8: Resistant 4+ chryseobacterium (flavobacterium) indologenes (microscan roma-ug/ml (janak)) Sulfa/Trimethoprim <=0.5/9.5: Sensitive Gomez Collazo DPM LAB MICROBIOLOGY GENERAL ORDERABLES [address] [address], [place] [phone] [facility] [address] [place] [address], documented in this encounter Visit Diagnoses Diagnosis 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)- Primary Type 2 diabetes mellitus with diabetic neuropathy, without long-term current use of insulin (HCC) 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) Atherosclerosis of muscogee arteries of the extremities with rest pain Left foot pain Pain in limb 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) Cellulitis of left ankle Cellulitis and abscess of leg, except foot Cellulitis of fifth toe of left foot Cellulitis and abscess of toe, unspecified documented in this encounter Administered Medications Inactive Administered Medications - up to 3 most recent administrations Medication Order MAR Action Action Date Dose Rate Site cefTRIAXone (ROCEPHIN) injection 1 g 1 g, Normal, intramuscular, Once, 1 dose, On Tue05/16/24 at 1445 Given 05/16/2024 2:44 PM EDT 1 g Ri ght Gluteus documented in this encounter Care Teams Alarm Technician Relationship Specialty Start Date End Date Eron Tovar DO [address] [place] [phone] PCP - General Internal Medicine 02/29/24 Rosario Black PA-C [address] [place] [address] Floor [place] [address] Cardiology 04/29/19 Jacob Brown DPM [address] [place] [address] [place] [phone] Referring Provider Podiatric Surgery 12/09/21 Provider, Generic External Data 12/10/21 Provider, Historical EPICARE PROVIDER 12/10/21 Hu Pfeiffer MD [address] [facility] [address] [place] [phone] Vascular Surgery 12/11/21 Gomez Collazo DPM [address] [place] [address] [address] [place] [phone] Podiatric Surgery 10/03/23 documented as of this encounter
--- OUTSIDE RECORDS SUMMARY | 2024-11-07 08:08 | External Medical Summary | Summary of Care ---
Author Name Unknown Organization [facility] Address [address] [facility] [address] Phone [phone] Care Team Providers Care Vegetable Packer Name Role Phone Eron Tovar DO Primary Care Provid er Reason for Visit * Reason Onset Date Comments Test Results 05/18/2024 Encounter Details Date Type Department Care Team (Late st Contact Info) Description 05/18/2024 Telephone Cardiology, [facility] [address] [place] [address] Sajan Griffith PA-C [address] [place] [address] Test Results Allergies No known active allergiesdocumented as of this encounter (statuses as of 05/18/2024) Medications Medication Sig Dispensed Refills Start Date [...] the morning. In the morning.. 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, bilateral legs 02/15/2019 Type [...] as of this encounter (statuses as of 05/18/2024) Resolved Problems Problem Noted Date Diagnosed Date Resolved Date Cellulitis of left lower extremity 12/23/2021 12/25/2023 Type 2 diabetes mellitus wit h hemoglobin A1c goal of less than 7.5% 11/14/2019 01/14/2021 Skin ulcer of toe of left fo ot, limited to breakdown of skin 10/13/2018 02/15/2019 Coronary artery disease invo lving hoopa heart without angina pectoris 06/01/2018 11/10/2021 DM type 2 causing neurological disease 01/24/2018 01/14/2021 Type 2 diabetes mellitus wit h diabetic nephropathy, without long-term current use of insulin 09/08/2017 09/08/2017 Atherosclerotic heart diseas e of hoopa coronary artery with unspecified angina pectoris 09/08/2017 [...] as of this encounter (statuses as of 05/18/2024) Immunizations Name Administration Dates Next Due COVID-19 mRNA, LNP-s, No Pre serve, 2-Dose Series ([employer]) 08/13/2021,01/22/2021,12/27/2020 Covid-19, Mrna, Lnp-s, Pf, B ivalent, 30 Mcg, IM, 12 yrs and above ([employer]) 11/09/2022 Pneumococcal Conjugate Vacc, 13 Valent (Prevnar) [...] encounter Miscellaneous Notes * Telephone Encounter - Matt Jefferson LPN - 05/18/2024 1:26 PM EDT Called and informed patient of Sajan's message. Patient verbalized understanding. Medication list updated. ----- Message from Sajan Griffith sent at 05/18/2024 7:52 AM EDT ----- Iron deficiency. Borderline low B12. Add Vitron C, one tablet daily. Add oral B12, 500 mcg daily documented in this encounter Plan of Treatment Upcoming Encounters Date Type Department Care Team (Late st Contact Info) Description 07/19/2024 10:20 AM EDT Office Visit [facility] [address] [place] [phone] Yury Cash MD [address] [place] [phone] 08/06/2024 2:45 PM EDT Office Visit Dermatology [facility] [address] [facility] [place] [address] Jim Ahuja MD [address] [facility] [place] [address] 11/21/2024 8:30 AM EST Office Visit Cardiology, [facility] [address] [place] [address] Sajan Griffith PA-C [address] [place] [address] Health Maintenance Due Date Last Done Comments [...] Additional history exists CKD PHOS USE SMARTSET 22200 02/09/202501/294, 02/10/2024, 01/06/2024, Additional history exists Depression Screening 04/24/2025 04/24/2024, 04/21/20 15 B-12 05/17/2025 05/17/2024, 05/0 05/2024, 07/07/2023, Additional history exists CKD HGB USE SMARTSET 20256 05/17/202505/17, 03/07/2024, 03/07/2024, Additional history exists DTaP,Tdap,and Td Vaccines (3 [...] the patient have Health Care Power of Batch Freezer? Yes, not currently available Care Teams Vegetable Packer Relationship Specialty Start Date End Date Eron Tovar DO [address] [place] [phone] PCP - General Internal Medicine 01/14/21 documented as of this encounter
--- OUTSIDE RECORDS SUMMARY | 2024-11-07 08:08 | External Medical Summary | Summary of Care ---
Author Name Unknown Organization [facility] Ambulatory Address [address] [place] [address] Phone Care Team Providers Care Dielectric Tester Name Role Phone Rosario Black PA-C Unavailable [phone] Jacob Brown DPM Unavailable +[phone] Provider, Generic External Data Unavailable Unavailable Provider, Historical Unavailable Unavailable Hu Pfeiffer MD Unavailable [phone] Gomez Collazo DPM Unavailable [phone] Eron [...] except as provided at sections 2.12(c)(5) and 2.65.[facility] Ambulatory Reason for Visit * Reason Comments Ulcer Left ankle Encounter Details Date Type Department Care Team (Late Contact Info) Description 05/21/2024 12:45 PM EDT Office Visit [facility] [place] [address] [facility] [place] [phone] Account Administrator: Missy Saucedo John Robert, DPM [address] [place] [phone] 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) (Primary Dx); Type 2 diabetes mellitus with diabetic neuropathy, without long-term current use of insulin (HCC); Cellulitis of left ankle; 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); Left foot pain; Cellulitis of fifth toe of left foot Allergies No known active allergiesdocumented as of this encounter (statuses as of 05/21/2024) Medications Medication Sig Dispensed Refills Start Date [...] 10 days 20 capsule 05/16/2024 05/26/2024 Active sulfamethoxazole-tr imethoprim (BACTRIM DS) 800-160 mg oral tablet Take 1 tablet by mouth 2 times a day for 10 days 20 tablet 05/20/2024 05/30/2024 Active iron,carbonyl-vitam in C (VITRON-C) 65 mg iron- 125 mg oral tablet,delayed release (/EC) Take 1 tablet by mouth every morning Active cyanocobalamin (VITAMIN B-12) 500 mcg oral tablet Take 1 tablet by mouth every morning Active documented as of this encounter (statuses as of 05/21/2024) Active Problems Problem Noted Date Diagnosed Date [...] (AAA) without rupture 06/06/2020 Unspecified atherosclerosis of [place] arteries of extremities, bilateral legs 02/15/2019 Type 2 diabetes mellitus wit h diabetic neuropathy, without long-term current use of insulin 09/08/2017 S/P right coronary artery (RCA) stent placement 09/20/2016 Paroxysmal atrial fibrillation 05/17/2016 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 10/14/2014 History of malignant melanoma of skin 08/16/2011 Overview: Back - s, no SLN, unknown depth Hyperlipidemia associated with type 2 diabetes m salazaritus 09/11/2010 After cataract not obscuring vision 04/07/2009 Overview: ICD-10 update of inactive term documented as of this encounter (statuses as of 05/21/2024) Social History Tobacco Use Types Packs/Day Years [...] - - Weight 98 kg (216 lb) 05/21/2024 12:59 PM EDT Height 177.8 cm (5' 10") 05/21/2024 12:59 PM EDT Body Mass Index 30.99 05/21/2024 12:59 PM EDT documented in this encounter Progress Notes * Leonie Etienne - 05/21/2024 12:45 PM EDT Review of Systems: Constitutional: Negative. HENT: Negative. Eyes: Negative. Respiratory: Negative. Cardiovascular: Negative. Gastrointestinal: Negative. Musculoskeletal: Positive for joint pain. Skin: Negative. Neurological: Negative. Allergy/Immunology: Negative. Psychiatric/Behavioral: Negative. Endocrine: Positive for diabetes. Hematologic/Lymphatic: Negative. Genitourinary: Negative. * Gomez Collazo DPM - 05/21/2024 12:45 PM EDT Wound Note Chief Complaint: Ulcer (Left ankle) Nursing Notes Leonie Etienne SignedEncounter Date: TueMay 21, 2024 12:45 PM Patient is here for his left ankle ulcer. He states that the ankle is throbbing along with the leftgreat toe. His states that they picked up the one ABX last week, and she received a text on Tuesday for the other ABX. He took one of the Bactrim so far. Right ankle 3/10, left great toe 6/10. Hestates that when he wears his right shoe, it's rubbing the ankle enough to make it pain. HPI: Patient is a 88 year old male who presents for evaluation treatment. Patient presents with chief complaint of Ulcer (Left ankle) Patient has chronic right ankle wound. Patient is concerned with left foot swelling, warmth, redness. Wound culture taken at previous visit and patient dispensed oral antibiotics. He has recently started Bactrim. Patient complains today of left foot and leg pain when at rest. He notes standing and taking a few steps relieves his symptoms.. Patient has history of PVD with arterial sclerosis. ROS: Review of Systems: Constitutional: Negative. HENT: Negative. Eyes: Negative. Respiratory: Negative. Cardiovascular: Negative. Gastrointestinal: Negative. Musculoskeletal: Positive for joint pain. Skin: Negative. Neurological: Negative. Allergy/Immunology: Negative. Psychiatric/Behavioral: [...] mouth every 12 hours for 10 days cyanocobalamin (VITAMIN B-12) 500 mcg oral tablet Take 1 tablet by mouth every morning gabapentin (NEURONTIN) 600 mg oral tablet 600 mg 3 times a day glucose monitoring kit Check blood sugars once daily iron,carbonyl-vitamin C (VITRON-C) 65 mg iron- 125 mg oral tablet,delayed release (DR/EC) Take 1 tablet by mouth every morning meloxicam (MOBIC) 15 mg oral tablet Take [...] ankle ulcer. Left fifth toe Partial-thickness ulcer. VASCULAR: Dorsalis pedis and posterior tibial pulses palpable bilateral. Capillary refill time absent to left foot. Left foot is cold to touch.. Absence of leg and pedal hair. MUSCULOSKETETAL: Manualmuscle test elicits 5 out of 5. Digital contractures 2 through 5 adductovarus fifth toes. NEUROLOGIC: Vibratory sensation absent bilateral to lower extremities. [place] Lidia 5.07 monofilament elicits 4 out of 10. CONSTITUTIONAL: Patient denies constitutional symptoms PSYCH: Normal affect and demeanor Focused Exam: Wound location: Right lateral ankle Wound base color and depth: Full-thickness into subcutaneous tissue. wound size (cm): 0.7 x 0.7 x 0.2 cm Odor: No malodor Drainage: None Undermining: None Borders: Macerated with hyperkeratotic rim Gram Stain Rare Polys 2+ Gram positive cocci in pairs and chains Rare Gram Negative Rods Rare Yeast [facility] Culture 4+ Serratia marcescens 4+ Enterococcus faecalis 4+ CHRYSEOBACTERIUM (FLAVOBACTERIUM) INDOLOGENES 3+ Julia albicans [facility] Report Status Final Result 05/20/2024 [facility] Organism 4+ Serratia marcescens [facility] Organism 4+ Enterococcus faecalis [facility] Organism 4+ CHRYSEOBACTERIUM (FLAVOBACTERIUM) INDOLOGENES [facility] Susceptibility 4+ enterococcus faecalis (microscan roma-ug/ml (janak)) [...] and treated. Significant time was spent in [id number] discussion reviewing symptoms, diagnosis, and treatment. Patient denies constitutional symptoms. Patient's left foot is ice cold to touch. Suspected rest pain complaint. Reviewed previous vascularintervention of right lower extremity. Patient has an appointment for follow-up in July and we did discuss possibly being seen sooner. Wounds cleansed with betadine followed by normal [...] right ankle with fat layer exposed (HCC) L97.312 2. Type 2 diabetes mellitus with diabetic neuropathy, without long-term current use of insulin (HCC) E11.40 3. Cellulitis of left ankle L03.116 4. 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 Left foot pain M79.672 6. Cellulitis of fifth toe of left foot L03.032 No follow-ups on file. The above report was generated using voice recognition software. It may contain grammatical, syntax, or spelling errors. documented in this encounter Nursing Notes * Leonie Etienne - 05/21/2024 12:45 PM EDT Patient is here for his left ankle ulcer. He states that the ankle is throbbing along with the leftgreat toe. His states that they picked up the one ABX last week, and she received a text on Tuesday for the other ABX. He took one of the Bactrim so far. Right ankle 3/10, left great toe 6/10. Hestates that when he wears his right shoe, it's rubbing the ankle enough to make it pain. 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 [address] [place] [address] Cardiology 04/29/19 Jacob Brown DPM [address] [facility] [address] [place] [phone] Referring Provider Podiatric Surgery 12/09/21 Provider, Generic External Data 12/10/21 Provider, Historical [facility] 12/10/21 Hu Pfeiffer MD [address] [place] [address] [place] [phone] Vascular Surgery 12/11/21 Gomez Collazo DPM [address] [facility] [address] [place] [address] Podiatric Surgery 10/03/23 documented as of this encounter
--- OUTSIDE RECORDS SUMMARY | 2024-11-07 08:08 | External Medical Summary ---
Author Name Unknown Address Unknown Organization [id number] [address] [place] [address] Laboratory Report Ordering Provider Test Date Status ALISSA DIEGO 05/17/2024 09:43:50 Final Observation Date Value Abnormality Reference (Units ) Status WBC, Total 05/17/2024 09:43:50 5.30 4.00-10.8 0 (K/uL) Final RBC 05/17/2024 09:43:50 4.39 4.50-5.25 (M/uL) Final Hemoglobin 05/17/2024 09:43:50 11.7 Below low normal 14 .0-16.8 (g/dL) Final HCT 05/17/2024 09:43:50 37.8 Below low normal 40. 0-48.4 (%) Final MCV 05/17/2024 09:43:50 86.1 82.0-99.5 (fL) Final MCH 05/17/2024 09:43:50 26.7 27.0-34.0 (pg) Final MCHC 05/17/2024 09:43:50 31.0 32.0-36.0 (g/dL) Final RDW 05/17/2024 09:43:50 15.3 11.5-15.5 (%) Final Platelets 05/17/2024 09:43:50 117 Below low normal 140 -400 (K/uL) Final MPV 05/17/2024 09:43:50 12.4 6.6-11.1 ( fL) Final Performing Location [facility] [address] [place] [id number]
[2024-11-07] MEDS: INSULIN ASPART PER UNIT CHARGE SC SCH ×2 (08:09→13:17)
[2024-11-07 08:32] LABS: Basophils # (auto) 0.02 K/uL (0.00-0.20); Basophils % (auto) 0.2 %; Eosinophils # (auto) 0.03 K/uL (0.00-0.50); Eosinophils % (auto) 0.3 %; Hematocrit (blood only) 29.8 % (42.0-52.0); Hemoglobin 9.4 g/dl (14.0-18.0); Immature Granulocytes # (auto) 0.06 K/uL (0.01-0.20); Immature Granulocytes % (auto) 0.5 %; Lymphocytes # (auto) 1.53 K/uL (1.20-3.40); Lymphocytes % (auto) 13.3 %; Mean Corpuscular Hgb Conc 31.5 g/dL (32.0-36.0); Mean Corpuscular Volume 82.5 fL (80.0-100.0); Mean Platelet Volume 12.8 fL (9.4-12.4); Monocytes # (auto) 1.49 K/uL (0.11-0.59); Monocytes % (auto) 12.9 %; Neutrophils # (auto) 8.38 K/uL (1.40-6.50); Neutrophils % (auto) 72.8 %; Platelet Count 114 K/uL (130-400); RDW Coefficient of Variation 15.9 % (11.5-14.5); RDW Standard Deviation 48.4 fL (36.4-46.3); Red Blood Count 3.61 M/uL (4.70-6.10); White Blood Count 11.51 K/ul (4.8-10.8)
[2024-11-07 08:48] LABS: BUN Creatinine Ratio 19.3 (10-20); Calcium 8.5 mg/dl (8.6-10.3); Magnesium 1.7 mg/dl (1.7-2.4)
[2024-11-07] MEDS ORDERED: INSULIN ASPART PER UNIT CHARGE SC SCH (09:00)
--- NOTE | 2024-11-07 09:08 | Hospitalist Progress Note ---
Date of Service November 07, 2024 Assessment & Plan (1) Cellulitis of left lower extremity: Plan: Patient had a surgery about a month ago and he was initially fine and then around a week ago he started noticing gradual redness which continued to get worse along with pain. On examination he does have blanching erythema around the surgical incision extending to posterior knee mainly involving the medial aspect of the left leg. Agree with continuing vancomycin and Zosyn empirically, monitor clinical response, patient has already been seen by vascular surgery who will review the prior records and advise further. Patient had 1 event of fever of 38.4 yesterday at around 10 PM but otherwise remained afebrile thereafter. His white blood cell count is 11,000 but otherwise he is stable clinically. (2) Sepsis: Plan: Continue treating underlying cause of cellulitis. (3) Peripheral arterial disease: Plan: He underwent recent bypass of left popliteal to dorsalis pedis bypass at [facility]. Vascular surgery is on board, awaiting documents from that facility to be reviewed. Here he had a venous Doppler which showed a 9 x 2 cm postoperative collection appears to be. Duplex arterial Doppler was reviewed, showed marked stenotic left anterior tibialis artery, patent vascular graft between left distal popliteal artery and left dorsalis pedis with again the same observation of that ill-defined 9 x 2 cm inflammatory/postsurgical collection. Defer further interpretation of the study and review of the prior records and need for any additional intervention to vascular surgery. Continue with aspirin, statin and anticoagulation. (4) Hypomagnesemia: Plan: Magnesium was 1.2 and was replaced, today magnesium is 1.7. (5) Dyslipidemia: Plan: Continue with Lipitor 40 mg daily. (6) Diabetes mellitus type 2, controlled: Plan: Glycemic control is adequate, blood sugars ranging from 150-180, use sliding scale coverage for now. Continue with gabapentin. (7) Chronic gout: Plan: Continue with allopurinol 300 mg at bedtime (8) Paroxysmal atrial fibrillation: Plan: Heart rate is controlled, continue with Eliquis 5 mg twice daily, aspirin 81 mg daily, apparently patient is on Toprol XL 150 mg twice daily at home which will be continued. Plan Continue with empirical vancomycin and Zosyn, monitor response of cellulitis to IV antibiotic treatment, await review of the records and further input by vascular surgery. Admission and Anticipated Discharge Date Admission Date: November 07, 2024 Subjective Patient is a 88-year-old gentleman with history of diabetes mellitus type 2, dyslipidemia, chronic gout, paroxysmal atrial fibrillation on anticoagulation, peripheral vascular disease status post recent bypass surgery from left popliteal artery to dorsalis pedis at [facility] and history of coronary artery disease who was admitted after a month of with cellulitis of the left lower extremity, he appears to be having sepsis on admission with fever, hemodynamically was stable, he was empirically placed on vancomycin and Zosyn, arterial and venous Doppler were done, awaiting to review records sent from [facility], vascular surgery is on consult. Patient was seen and examined, clinically he is stable, his pain is under good control, the area over the left lower extremity shows an area of cellulitis with blanching erythema no significant tenderness but mainly around, more toward the medial aspect of the incision. Physical Exam Physical Exam: VITALS: Reviewed. WEIGHT/BMI reviewed. GEN: Healthy appearing, well-developed, NAD. CV: RRR, no m/r/g. LUNGS: CTAB, no w/r/c. ABD: Soft, NT/ND, NBS, no masses or organomegaly. : N/A SKIN: The incision site over the area of the recent bypass surgery was reviewed, there is no significant swelling about probably 1+, there is no purulence from incisions, there is not much tension noticed at that incision site, there is erythema around more on the medial side of the left leg with extension to popliteal area. Results & Data Results & Data Vital Signs (Past 12 Hours) Vital Signs Temp Pulse Pulse Resp BP BP Pulse Ox 11/07/24 07:33 11/07/24 07:17 75 11/07/24 07:09 36.8 C 78 17 130/59 L 98 11/07/24 06:25 36.6 C 79 18 141/71 H 98 11/07/24 05:46 74 11/07/24 05:30 36.7 C 71 19 126/54 L 99 11/07/24 05:30 11/07/24 01:54 71 11/07/24 01:30 73 18 119/63 90 11/07/24 00:30 71 17 102/54 L 96 11/07/24 00:15 66 19 96/39 L 96 11/07/24 00:05 68 19 84/36 L 95 11/07/24 00:00 69 20 78/39 L 95 11/06/24 23:45 68 18 97/55 L 95 11/06/24 23:15 87 22 126/63 94 11/06/24 23:08 37.4 C 70 16 106/52 L 96 11/06/24 23:00 106/52 L 11/06/24 23:00 106/52 L 11/06/24 22:57 72 20 97 11/06/24 22:45 72 21 96 11/06/24 22:45 109/54 L 11/06/24 22:45 109/54 L 11/06/24 22:45 109/54 L 11/06/24 22:42 105/52 L 11/06/24 22:42 73 22 105/52 L 96 11/06/24 22:30 73 22 120/58 L 96 11/06/24 22:20 79 25 H 97 11/06/24 22:17 81 22 116/56 L 96 11/06/24 22:17 80 26 H 97 11/06/24 22:15 81 25 H 11/06/24 22:00 82 28 H 96 11/06/24 21:56 11/06/24 21:56 38.4 C H 80 22 112/59 L 96 11/06/24 21:54 82 Pulse Ox O2 Del Method O2 Del Method O2 Flow Rate O2 Flow Rate 11/07/24 07:33 Nasal Cannula 2 11/07/24 07:17 11/07/24 07:09 Nasal Cannula 4 11/07/24 06:25 Nasal Cannula 2 11/07/24 05:46 11/07/24 05:30 Nasal Cannula 2 11/07/24 05:30 98 Nasal Cannula 2 11/07/24 01:54 11/07/24 01:30 Nasal Cannula 2 11/07/24 00:30 Nasal Cannula 2 11/07/24 00:15 Nasal Cannula 2 11/07/24 00:05 Nasal Cannula 2 11/07/24 00:00 Nasal Cannula 2 11/06/24 23:45 Nasal Cannula 2 11/06/24 23:15 Nasal Cannula 2 11/06/24 23:08 Nasal Cannula 2 11/06/24 23:00 11/06/24 23:00 11/06/24 22:57 11/06/24 22:45 11/06/24 22:45 11/06/24 22:45 11/06/24 22:45 11/06/24 22:42 11/06/24 22:42 Room Air 11/06/24 22:30 Nasal Cannula 2 11/06/24 22:20 Nasal Cannula 2 11/06/24 22:17 Nasal Cannula 2 11/06/24 22:17 Nasal Cannula 2 11/06/24 22:15 11/06/24 22:00 11/06/24 21:56 Nasal Cannula 3 11/06/24 21:56 Nasal Cannula 3 11/06/24 21:54 Laboratory Results Laboratory Results - last 24 hr 11/06/24 11/06/24 11/06/24 21:05 22:03 22:08 WBC 10.72 RBC 4.01 L Hgb 10.3 L Hct 32.7 L MCV 81.5 MCH 25.7 MCHC 31.5 L RDW Std Deviation 47.2 H RDW Coeff of Sandie 15.9 H Plt Count 136 MPV 12.5 H Immature Gran % (Auto) 0.5 Neut % (Auto) 82.0 Lymph % (Auto) 7.2 [place] % (Auto) 10.1 Eos % (Auto) 0.0 Baso % (Auto) 0.2 Neut # (Auto) 8.80 H Lymph # (Auto) 0.77 L [place] # (Auto) 1.08 H Eos # (Auto) 0.00 Baso # (Auto) 0.02 Immature Gran # (Auto) 0.05 Sodium 134 L Potassium 4.1 Chloride 97 L Carbon Dioxide 26 Anion Gap 11 BUN 18 Creatinine 0.98 Est Cr Clr Drug Dosing 63.0 eGFR 74.63 BUN/Creatinine Ratio 18.4 Glucose 188 H POC Glucose Estimat Average Glucose Hemoglobin A1c Lactate 2.9 H* Calcium 9.0 Magnesium 1.2 L Total Bilirubin 1.0 Direct Bilirubin 0.2 AST 19 ALT 13 Alkaline Phosphatase 69 Troponin I High Sens 34.0 H Total Protein 6.7 Albumin 4.0 Procalcitonin 0.11 Urine Color Urine Appearance Urine pH Ur Specific [place] Urine Protein Urine Glucose (UA) Urine Ketones Urine Blood Urine Nitrite Urine Bilirubin Urine Urobilinogen Ur Leukocyte Esterase Urine WBC (Auto) Urine RBC (Auto) U Hyaline Cast (Auto) U Epithel Cells (Auto) Urine Bacteria (Auto) Adenovirus (PCR) Not Detected B. pertussis DNA (PCR) Not Detected B.parapertussis DNA PCR Not Detected C. pneumoniae DNA (PCR) Not Detected Coronavirus OC43 (PCR) Not Detected Coronavirus HKU1 (PCR) Not Detected Coronavirus 229E (PCR) Not Detected SARS-CoV-2 (PCR) Not Detected Coronavirus NL63 (PCR) Not Detected Human Metapneumovir PCR Not Detected Influenza Type A (PCR) Not Detected Influenza Type B (PCR) Not Detected M. pneumoniae (PCR) Not Detected Parainfluenza 1 (PCR) Not Detected Parainfluenza 2 (PCR) Not Detected Parainfluenza 3 (PCR) Not Detected Parainfluenza 4 (PCR) Not Detected RSV (PCR) Not Detected Entero/Rhino (PCR) Not Detected 11/06/24 11/06/24 11/07/24 23:09 23:54 07:11 WBC RBC Hgb Hct MCV MCH MCHC RDW Std Deviation RDW Coeff of Sandie Plt Count MPV Immature Gran % (Auto) Neut % (Auto) Lymph % (Auto) [place] % (Auto) Eos % (Auto) Baso % (Auto) Neut # (Auto) Lymph # (Auto) [place] # (Auto) Eos # (Auto) Baso # (Auto) Immature Gran # (Auto) Sodium Potassium Chloride Carbon Dioxide Anion Gap BUN Creatinine Est Cr Clr Drug Dosing eGFR BUN/Creatinine Ratio Glucose POC Glucose 176 H Estimat Average Glucose Hemoglobin A1c Lactate 1.8 Calcium Magnesium Total Bilirubin Direct Bilirubin AST ALT Alkaline Phosphatase Troponin I High Sens 49.8 H D Total Protein Albumin Procalcitonin Urine Color Dark Yellow Urine Appearance Clear Urine pH 5.0 Ur Specific [place] 1.039 H Urine Protein 2+ H Urine Glucose (UA) Negative Urine Ketones Trace H Urine Blood 2+ H Urine Nitrite Negative Urine Bilirubin Negative Urine Urobilinogen Negative Ur Leukocyte Esterase Negative Urine WBC (Auto) 21-50 H Urine RBC (Auto) >20 H U Hyaline Cast (Auto) 3-5 H U Epithel Cells (Auto) 3-5 H Urine Bacteria (Auto) None Seen Adenovirus (PCR) B. pertussis DNA (PCR) B.parapertussis DNA PCR C. pneumoniae DNA (PCR) Coronavirus OC43 (PCR) Coronavirus HKU1 (PCR) Coronavirus 229E (PCR) SARS-CoV-2 (PCR) Coronavirus NL63 (PCR) Human Metapneumovir PCR Influenza Type A (PCR) Influenza Type B (PCR) M. pneumoniae (PCR) Parainfluenza 1 (PCR) Parainfluenza 2 (PCR) Parainfluenza 3 (PCR) Parainfluenza 4 (PCR) RSV (PCR) Entero/Rhino (PCR) 11/07/24 07:44 WBC 11.51 H RBC 3.61 L Hgb 9.4 L Hct 29.8 L MCV 82.5 MCH 26.0 MCHC 31.5 L RDW Std Deviation 48.4 H RDW Coeff of Sandie 15.9 H Plt Count 114 L MPV 12.8 H Immature Gran % (Auto) 0.5 Neut % (Auto) 72.8 Lymph % (Auto) 13.3 [place] % (Auto) 12.9 Eos % (Auto) 0.3 Baso % (Auto) 0.2 Neut # (Auto) 8.38 H Lymph # (Auto) 1.53 [place] # (Auto) 1.49 H Eos # (Auto) 0.03 Baso # (Auto) 0.02 Immature Gran # (Auto) 0.06 Sodium 136 Potassium 4.0 Chloride 101 Carbon Dioxide 29 Anion Gap 6 BUN 17 Creatinine 0.88 Est Cr Clr Drug Dosing 69.0 eGFR 83.22 BUN/Creatinine Ratio 19.3 Glucose 154 H POC Glucose Estimat Average Glucose Pending Hemoglobin A1c Pending Lactate Calcium 8.5 L Magnesium 1.7 Total Bilirubin Direct Bilirubin AST ALT Alkaline Phosphatase Troponin I High Sens Total Protein Albumin Procalcitonin Urine Color Urine Appearance Urine pH Ur Specific [place] Urine Protein Urine Glucose (UA) Urine Ketones Urine Blood Urine Nitrite Urine Bilirubin Urine Urobilinogen Ur Leukocyte Esterase Urine WBC (Auto) Urine RBC (Auto) U Hyaline Cast (Auto) U Epithel Cells (Auto) Urine Bacteria (Auto) Adenovirus (PCR) B. pertussis DNA (PCR) B.parapertussis DNA PCR C. pneumoniae DNA (PCR) Coronavirus OC43 (PCR) Coronavirus HKU1 (PCR) Coronavirus 229E (PCR) SARS-CoV-2 (PCR) Coronavirus NL63 (PCR) Human Metapneumovir PCR Influenza Type A (PCR) Influenza Type B (PCR) M. pneumoniae (PCR) Parainfluenza 1 (PCR) Parainfluenza 2 (PCR) Parainfluenza 3 (PCR) Parainfluenza 4 (PCR) RSV (PCR) Entero/Rhino (PCR) Diagnostic Findings Chest X-Ray 11/06/24 22:04 Exam(s): XR CXR 1 VIEW EXAM: XR Chest, 1 View CLINICAL HISTORY: Reason for exam: Sepsis. TECHNIQUE: Frontal view of the chest. COMPARISON: August 12, 2022 FINDINGS: Lungs: Mild vascular congestion without overt edema or acute focal infiltrate. Pleural space: Unremarkable. No pneumothorax. Heart: The cardiac silhouette is mildly enlarged. Mediastinum: Unremarkable. Normal mediastinal contour. Bones/joints: There are several old healed left rib fractures, unchanged. Vasculature: The aortic arch is calcified. Upper abdomen: There is no pneumoperitoneum under the diaphragm. Other findings: The patient is rotated to the right. IMPRESSION: 1. The cardiac silhouette is mildly enlarged. 2. Mild vascular congestion without overt edema or acute focal infiltrate. Electronically signed by: Elijah Echols MD 11/06/24 23:33 PM Venous Doppler Study 11/06/24 22:04 EXAM: US venous doppler LE LT CLINICAL HISTORY: RECENT LLE BYPASS GRAFT. SCARRING MED UPPER THIGH, GSV VEIN HARVESTED (LIMITED HISTORY, PT POOR HISTORIAN, PRESENTS TO ER WITH INCREASED CONFUSION) TECHNIQUE: Ultrasound examination of left lower extremity veins was performed in real time and duplex. One or more of the following were performed- spectral analysis, resistive index, waveform analysis, and pulsed Doppler. COMPARISON: None. FINDINGS: Normal phasic, non-pulsatile and spontaneous flow is noted in left GSV, common femoral, superficial femoral, popliteal, anterior tibial, posterior tibial and peroneal veins. Visualized veins of left lower extremity demonstrate normal compressibility. No sonographic evidence of acute deep vein thrombosis (DVT) is detected in the visualized veins of lower extremity. Compression and Augmentation: All evaluated veins compress fully with applied transducer pressure. Augmentation of venous flow is noted with distal compression. Additional Findings: No evidence of intraluminal thrombus. Evidence of left knee end of thigh scar heterogenous irregular shaped nonvascular complex area is noted measuring 9.7 x 2.0 cm most likely postoperative collection, edema and inflammatory changes/scarring tissue. IMPRESSION: 1. No sonographic evidence of acute DVT detected at the time of examination. 2. Evidence of left knee end of thigh scar heterogenous irregular shaped nonvascular complex area is noted measuring 9.7 x 2.0 cm most likely postoperative collection, edema and inflammatory changes/scarring tissue. 3. Please correlate clinically. Disclaimer: DVT could be missed early in the disease when clot burden is minimal. For patients with moderate and high pretest probability of DVT and negative ultrasound, the [employer] clinical guidelines recommend testing with a D-dimer assay or repeat ultrasound in 5-7 days. If symptoms worsen, the Society of radiologists in ultrasound recommends repeating ultrasound even earlier. Electronically signed by Masha Green 11-07-2024 04:44 AM Duplex Scan Lower Extremity Artery 11/06/24 23:53 EXAM: US arterial duplex LE LT CLINICAL HISTORY: HX: no priors at this facility. Recent bypass graft left lower limb extremity. Redness around stitches. TECHNIQUE: Ultrasound examination of the bilateral lower extremities arteries with ankle brachial indices was performed in real time and duplex. One or more of the following were performed- spectral analysis, resistive index, waveform analysis, and pulsed Doppler. COMPARISON: None. FINDINGS: (Stitches on left medial mid-calf, left distal lateral calf and dorsum left foot along with patient movement making examination limited). 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 Velocities gradually increased throughout the left superficial femoral artery but no focal areas of change in velocities are detected. Additional Findings: Popliteal artery distal to the graft shows monophasic flow with spectral broadening with peak systolic velocity of 62.5 cm/s An ill-defined irregular collection is noted in the medial popliteal fossa measuring 4.1 x 8.9 x 2.2 cm with overlying inflammatory changes and subcutaneous edema Left dorsalis pedis proximal to the graft shows reverse flow with peak systolic velocity of 128 cm/s Vessel Flow Pattern Right Peak Velocity Right (cm/sec) Flow Pattern Left Peak Velocity Left (cm/sec) Common Femoral Artery (EXTRUSION LINE OPERATOR) - - Biphasic 148 Deep Femoral Artery (DPA) - - Monophasic with spectral broadening 66 Superficial Femoral Artery (SFA) - - Biphasic in proximal Monophasic in mid SFA Monophasic with spectral broadening in the distal SFA 58 in proximal SFA 186 in the mid SFA 260 in distal SFA Popliteal Artery (POP A) - - Monophasic with spectral broadening in proximal middle and distal popliteal artery 135 in proximal left popliteal artery 99 in mid left popliteal artery 74 mm distal left popliteal artery Posterior Tibial Artery (FELTMAKER AND WEIGHER) - Monophasic flow in with spectral broadening in proximal, middle and distal left posterior tibial artery 101 and left posterior tibial artery proximal 185 in left posterior tibial artery middle 35 in left posterior tibial artery distal part Peroneal artery - Monophasic flow with spectral broadening in left peroneal artery proximal, middle and distal part 61 in proximal left peroneal artery 120 in medial left peroneal artery 101 in distal left peroneal artery Anterior tibial artery (AVI) Monophasic flow with spectral broadening in the proximal left AVI 106 in proximal left AVI Dorsalis Pedis Artery (DPA) - Monophasic flow with spectral broadening 51 IMPRESSION: 1. 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 2. A patent, vascular graft is seen between the left distal popliteal artery just above the triple-vessel runoff and the left dorsalis pedis artery showing high vascular velocities measuring 136.9 cm/s and also the velocities are increased in medial posterior tibial artery and dorsalis pedis artery distal to the anastomosis. High flow velocities suggest mild luminal narrowing however no evidence of thrombosis. 3. Velocities gradually increased throughout the left superficial femoral artery but no focal areas of change in velocities are detected. 4. An ill-defined post-surgical collection is noted in the medial popliteal fossa measuring 4.1 x 8.9 x 2.2 cm with overlying inflammatory changes and subcutaneous edema 5. Further evaluation with CT/MR angiography can be recommended if clinically warranted. Electronically signed by Masha Green 11-07-2024 06:05 AM Medications Administered Current Inpatient Medications Acetaminophen (Acetaminophen 325 Mg Tab) 650 mg PO Q6H PRN PRN Reason: Pain or Fever Stop: 12/07/24 05:29 Last Admin: 11/07/24 08:02 Dose: 650 mg Allopurinol (Allopurinol 300 Mg Tab) 300 mg PO HS [place] Stop: 12/07/24 20:59 Apixaban (Apixaban 5 Mg Tablet) 5 mg PO AMHS [place] Stop: 12/07/24 08:59 Last Admin: 11/07/24 08:02 Dose: 5 mg Aspirin (Aspirin 81 Mg Ectab) 81 mg PO DAILY [place] Stop: 12/07/24 08:59 Last Admin: 11/07/24 08:02 Dose: 81 mg Atorvastatin Calcium (Atorvastatin 40 Mg Tab) 40 mg PO DAILY [place] Stop: 12/07/24 08:59 Last Admin: 11/07/24 08:02 Dose: 40 mg Dextrose (Dextrose 50% 50 Ml Syringe) 25 - 50 ml IV UD PRN; Protocol PRN Reason: Hypoglycemia Protocol Stop: 12/07/24 05:29 Gabapentin (Gabapentin 600 Mg Tab) 600 mg PO TID [place] Stop: 12/07/24 08:59 Last Admin: 11/07/24 08:01 Dose: 600 mg Glucagon (Glucagon For Inj 1 Mg Vial) 1 mg SQ UD PRN; Protocol PRN Reason: Hypoglycemia Protocol Stop: 12/07/24 05:29 Glucose (Glucose 40% Gel 15 Gm Tube) 15 - 30 gm PO UD PRN; Protocol PRN Reason: Hypoglycemia Protocol Stop: 12/07/24 05:29 Glucose (Glucose 10 Tab/Tube) 4 - 8 tab PO UD PRN; Protocol PRN Reason: Hypoglycemia Protocol Stop: 12/07/24 05:29 Sodium Chloride (Nss) 1,000 mls @ 80 mls/hr IV .[id number] [facility] Stop: 11/07/24 17:59 Last Admin: 11/07/24 06:37 Dose: 80 mls/hr Piperacillin Sod/Tazobactam Sod (Zosyn) 4.5 gm in 100 mls @ 25 mls/hr IV Q8H [facility]; Protocol Stop: 11/14/24 05:59 Last Admin: 11/07/24 08:01 Dose: 25 mls/hr Vancomycin HCl 1,500 mg/ (Sodium Chloride) 530 mls @ 200 mls/hr IV Q24H [facility] Stop: 11/14/24 07:59 Last Admin: 11/07/24 08:06 Dose: 200 mls/hr Insulin Aspart (Insulin Aspart Per Unit Charge) 0 units SC ACHS [facility] Stop: 12/07/24 11:29 Metoprolol Succinate (Metoprolol Succ 50mg Ext Rel Tab) 150 mg PO AMHS [facility] Stop: 12/07/24 08:59 Last Admin: 11/07/24 08:02 Dose: 150 mg Miscellaneous (Carbohydrates For Hypoglycemia ) 15 - 30 gm PO UD PRN PRN Reason: Hypoglycemia Protocol Stop: 12/07/24 05:29 Miscellaneous Information (Vancomycin Consult Active) 1 each N/A UD PRN PRN Reason: Consult Stop: 12/06/24 22:07 Multivitamins (Multivitamin Tab) 1 tab PO DAILY [place] Stop: 12/07/24 08:59 Last Admin: 11/07/24 08:02 Dose: 1 tab Nitroglycerin (Nitroglycerin Sl 0.4 Mg/Tab Tab) 0.4 mg SL Q5M PRN PRN Reason: Chest Pain Stop: 12/07/24 05:29 Pantoprazole Sodium (Pantoprazole 40 Mg Tab) 40 mg PO DAILYBB [place] Stop: 12/07/24 06:29 Last Admin: 11/07/24 08:01 Dose: 40 mg Polyethylene Glycol (Polyethylene (Miralax) 17 Gm Pack) 17 gm PO DAILY PRN PRN Reason: Constipation Stop: 12/07/24 05:29 Tramadol HCl (Tramadol Hcl 50 Mg Tablet) 50 mg PO Q6 PRN PRN Reason: Pain Stop: 12/07/24 05:29 Vibegron (Vibegron 75 Mg Tab) 75 mg PO QAM [place] Stop: 12/07/24 08:59 Last Admin: 11/07/24 08:02 Dose: 75 mg (2) Sepsis Sepsis type: sepsis due to unspecified organism Sepsis acute organ dysfunction status: without acute organ dysfunction Qualified Code(s): A41.9 - Sepsis, unspecified organism (6) Diabetes mellitus type 2, controlled Diabetes mellitus fpc insulin use: without fpc use Diabetes mellitus complication status: with neurologic complications Diabetes mellitus complication detail: with polyneuropathy Qualified Code(s): E11.42 - Type 2 diabetes mellitus with diabetic polyneuropathy (7) Chronic gout Gout site: unspecified site Gout etiology: idiopathic Presence of tophus: without tophus Qualified Code(s): M1A.00X0 - Idiopathic chronic gout, unspecified site, without tophus (tophi)
[2024-11-07 09:16] LABS: Estimated Average Glucose 169 mg/dl; Hemoglobin A1C 7.5 % (4.5-5.6)
--- NOTE | 2024-11-07 10:46 | Pharmacy Report ---
Pharmacy PK ABX Note - Date of Service November 07, 2024 - Assessment and Plan Assessment 88 year old M receiving vancomycin for treatment of LLE Cellulitis and sepsis. Pertinent microbiologic data includes: urine and blood cultures pending. Patient had fever of 38.4'C last night but resolved. PMH includes recent bypass of left popliteal to dorsalis pedis @ [facility] [place], PAD, A fib, gout, dyslipidemia. Recent abx use, possibly augmentin, keflex, doxy, bactrim, and cefepime. Day # 1 of antimicrobial therapy. Plan Vancomycin * Loading dose: 2,000 mg IV x 1 * Maintenance dose: 1500 mg IV every 24 hours * Regimen is predicted to achieve target AUC/ALEXANDREA of 400-600 mg/L.hr * Random level ordered with tuesday (11/09) AM labs. Piperacillin/tazobactam 4.5g q8H Pharmacy will continue to follow and will adjust dose/frequency as necessary. Thank you. Pharmacy has transitioned to AUC monitoring for vancomycin. AUC/ALEXANDREA is the preferred PK/PD target and is associated with decreased risk of nephrotoxicity compared to traditional trough targets.
--- NOTE | 2024-11-07 13:35 | Consultation ---
Date of Consultation November 07, 2024 Assessment & Plan (1) Peripheral arterial disease: Pt with patent LLE distal pop to DP nonreversed saphenous vein bypass. He does appear to have cellulitis of LLE, with improvement since abx initiation. There are no open wounds, and DP pulse is palpable. No blood cultures yet. Will discuss with Dr Bosch whether further imaging is required. In meantime, incisions are well healed and sutures to be removed. No further imaging necessary. No indications for vascular surgical intervention at this time. Continue conservative treatment, pain control per medical team. Can follow up with his vascular surgeon at discharge. Please call if needed. History of Present Illness Reason for Consultation: LLE infection Attending Physician: Mary Lou Portillo MD History of Present Illness 88 yo m with multiple medical problems, including DMII, gout, A fib, dyslipidemia, GERD, neuropathy, PAD with revascularization, admitted with LLE infection, seen in consultation for same. Per pt, he had bypass surgery of LLE at [facility] approx 1 month ago. Records obtained indicate this was a distal pop to DP nonreversed saphenous vein bypass. Pt relates that he was seen in f/u and some of his sutures were removed, but not all. Believes he has an appt in another week or so to see his vascular surgeon again. States he noted increasing pain/swelling/redness to LLE over past few days, so came to [facility] for eval. Denies any open wounds or drainage to LLE. Denies any fever, chest pain, SOB, abd pain, N/V, dizziness, other complaints. Pt also states hx of RLE bypass surgery d/t nonhealing ulcer to L lateral malleolus. Has been following with Dr Gomez Collazo for the ankle wound. Imaging: LLE arterial US demonstrates patent bypass. Allergies Allergy/AdvReac Type Severity Reaction Status Date / Time No Known Allergies Allergy Mild Verified 08/12/22 21:07 Home Medications Medication Instructions Recorded Confirmed Type nitroglycerin 0.4 mg sublingual 0.4 mg sublingual .PRN PRN Chest 03/20/19 11/06/24 History tablet (Nitrostat) Pain omeprazole 20 mg capsule,delayed 20 mg PO DAILYBB 03/20/19 11/06/24 History release atorvastatin 40 mg tablet 40 mg PO DAILY 07/18/22 11/06/24 History gabapentin 600 mg tablet 600 mg PO TID 07/18/22 11/06/24 History allopurinol 300 mg tablet 300 mg PO HS 08/12/22 11/06/24 History aspirin 81 mg tablet,delayed 81 mg PO DAILY 08/12/22 11/06/24 History release multivitamin 1 tab PO DAILY 08/12/22 11/06/24 History acetaminophen 325 mg tablet 650 mg (2 x 325 mg) PO Q4H PRN 08/16/22 11/06/24 Rx fever or pain #30 tabs apixaban 5 mg tablet (Eliquis) 5 mg PO AMHS 11/06/24 11/06/24 History furosemide 40 mg tablet 40 mg PO QAM 11/06/24 11/06/24 History metformin 500 mg tablet,extended 1,000 mg PO AMPM 11/06/24 11/06/24 History release 24 hr metoprolol succinate 50 mg 150 mg PO AMHS 11/06/24 11/06/24 History tablet,extended release 24 hr mirabegron 50 mg tablet,extended 50 mg PO QAM 11/06/24 11/06/24 History release 24 hr tramadol 50 mg tablet 50 mg PO Q6 PRN Pain 11/06/24 11/06/24 History Patient History Medical History Recurrent falls COVID Hypoxia Family History Other Family history non-contributory Social History Smoking Status: Never smoker Do You Dip or Chew Tobacco: No; Hx Alcohol Use: No Hx Substance Use: No Preferred Language: Macedonian Communication Ability: Effective Treating And Pumping Supervisor Required: No Beliefs That Will Affect Care: None marital status: Current Living Situation: Spouse Other Information That Helps Us Care for You: No Feels Safe at Home: Yes Safety Concerns: Feels Safe At This Time Assistive Devices: Cane, Walker and Wheelchair Review of Systems Review of Systems: All systems reviewed & are unremarkable except as noted in HPI & below Physical Exam Constitutional: WD/WN, vitals as above Neck: trachea midline Respiratory: normal respiratory effort, lungs clear to auscultation Cardiovascular: Rate/Rhythm: + irregularly irregular Vessels: femoral pulses present, posterior tibial pulses present (palpable RLE), dorsalis pedis pulses present (palpable BLE) and radial pulses present; + abnormal peripheral pulses Extremities: normal capillary refill and + edema (LLE +2 pitting edema) Gastrointestinal (Abdomen): Inspection/Auscultation: abdomen normal to inspection and normal bowel sounds Percussion/Palpation: abdomen soft; abdomen nontender Musculoskeletal: no cyanosis or clubbing, extremities motor strength 5/5 Skin: LLE surgical incisions C/D/I. Sutures present lower leg incisions only. Incisions are well healed. LLE calf firm with edema/erythema/warmth extending from below knee to foot. Neurologic: moves all extremities and awake; no focal motor deficits and not confused Psychiatric: A+Ox3, euthymic affect (Pt is a poor historian.) Results & Data Vital Signs (Past 12 Hours) Vital Signs Temp Pulse Pulse Resp BP BP Pulse Ox 11/07/24 10:46 37.1 C 74 17 106/53 L 94 11/07/24 07:33 11/07/24 07:17 75 11/07/24 07:09 36.8 C 78 17 130/59 L 98 11/07/24 06:25 36.6 C 79 18 141/71 H 98 11/07/24 05:46 74 11/07/24 05:30 36.7 C 71 19 126/54 L 99 11/07/24 05:30 11/07/24 01:54 71 11/07/24 01:30 73 18 119/63 90 Pulse Ox O2 Del Method O2 Del Method O2 Flow Rate O2 Flow Rate 11/07/24 10:46 Nasal Cannula 2 11/07/24 07:33 Nasal Cannula 2 11/07/24 07:17 11/07/24 07:09 Nasal Cannula 4 11/07/24 06:25 Nasal Cannula 2 11/07/24 05:46 11/07/24 05:30 Nasal Cannula 2 11/07/24 05:30 98 Nasal Cannula 2 11/07/24 01:54 11/07/24 01:30 Nasal Cannula 2
[2024-11-07] MEDS: allopurinoL 300 MG TAB PO SCH (20:14)
--- NOTE | 2024-11-08 06:54 | Electrocardiogram Report ---
Test Reason : Blood Pressure : */* mmHG Vent. Rate : 81 BPM Atrial Rate : 81 BPM P-R Int : 154 ms QRS Dur : 134 ms QT Int : 418 ms P-R-T Axes : -23 99 -5 degrees QTcB Int : 485 ms Normal sinus rhythm Right bundle branch block T wave abnormality, consider inferior ischemia Abnormal ECG When compared with ECG of 12-Aug-2022 19:14, Right bundle branch block is now Present Confirmed by Billy Pa ([id number]) on 11/08/2024 6:54:23 AM Referred By: REFERRED SELF Confirmed By: Billy Pa
[2024-11-08 07:25] LABS: BUN Creatinine Ratio 14.7 (10-20); Calcium 8.5 mg/dl (8.6-10.3); Creatinine Clr Calc Pharmacy 64.5 ml/min; Magnesium 1.8 mg/dl (1.7-2.4)
[2024-11-08 07:30] LABS: Basophils # (auto) 0.03 K/uL (0.00-0.20); Basophils % (auto) 0.3 %; Eosinophils # (auto) 0.15 K/uL (0.00-0.50); Eosinophils % (auto) 1.4 %; Hematocrit (blood only) 29.4 % (42.0-52.0); Hemoglobin 9.1 g/dl (14.0-18.0); Immature Granulocytes # (auto) 0.04 K/uL (0.01-0.20); Immature Granulocytes % (auto) 0.4 %; Lymphocytes # (auto) 2.14 K/uL (1.20-3.40); Lymphocytes % (auto) 20.2 %; Mean Corpuscular Hemoglobin 25.9 pg (25.0-34.0); Mean Corpuscular Volume 83.5 fL (80.0-100.0); Monocytes # (auto) 0.99 K/uL (0.11-0.59); Monocytes % (auto) 9.4 %; Neutrophils # (auto) 7.23 K/uL (1.40-6.50); Neutrophils % (auto) 68.3 %; Platelet Count 113 K/uL (130-400); RDW Coefficient of Variation 16.2 % (11.5-14.5); RDW Standard Deviation 49.5 fL (36.4-46.3); Red Blood Count 3.52 M/uL (4.70-6.10); White Blood Count 10.58 K/ul (4.8-10.8)
--- NOTE | 2024-11-08 09:33 | Hospitalist Progress Note ---
Date of Service November 08, 2024 Assessment & Plan (1) Cellulitis of left lower extremity: Plan: Patient is clinically doing much better on IV antibiotic, based on this response we will continue with vancomycin and Zosyn until further improvement is achieved in cellulitis, he only had 1 occasion of Tmax of 37.8 but otherwise remained afebrile. No leukocytosis today, no further recommendation so far by vascular surgery. (2) Sepsis: Plan: Clinically stable, no concern, continue treating underlying cause of cellulitis. (3) Peripheral arterial disease: Plan: He underwent recent bypass of left popliteal to dorsalis pedis bypass at [facility]. Vascular surgery is on board, awaiting documents from that facility to be reviewed. Here he had a venous Doppler which showed a 9 x 2 cm postoperative collection appears to be. Duplex arterial Doppler was reviewed, showed marked stenotic left anterior tibialis artery, patent vascular graft between left distal popliteal artery and left dorsalis pedis with again the same observation of that ill-defined 9 x 2 cm inflammatory/postsurgical collection. Defer further interpretation of the study and review of the prior records and need for any additional intervention to vascular surgery. Continue with aspirin, statin and anticoagulation. (4) Hypomagnesemia: Plan: Replaced and resolved, magnesium is 1.8 today. (5) Dyslipidemia: Plan: Continue with Lipitor 40 mg daily. (6) Diabetes mellitus type 2, controlled: Plan: Glycemic control is adequate, blood sugars ranging from 150-180, use sliding scale coverage for now. Continue with gabapentin. (7) Chronic gout: Plan: Continue with allopurinol 300 mg at bedtime (8) Paroxysmal atrial fibrillation: Plan: Heart rate is controlled, continue with Eliquis 5 mg twice daily, aspirin 81 mg daily, apparently patient is on Toprol XL 150 mg twice daily at home which will be continued. Plan Continue with empirical vancomycin and Zosyn, expecting patient would probably need 2 more days of IV antibiotic prior to transitioning to oral. No further input from vascular surgery, they will let us know if patient needs additional imaging. Admission and Anticipated Discharge Date Admission Date: November 07, 2024 Subjective Patient is a 88-year-old gentleman with history of diabetes mellitus type 2, dyslipidemia, chronic gout, paroxysmal atrial fibrillation on anticoagulation, peripheral vascular disease status post recent bypass surgery from left popliteal artery to dorsalis pedis at [facility] and history of coronary artery disease who was admitted after a month of with cellulitis of the left lo wer extremity, he appears to be having sepsis on admission with fever, hemodynamically was stable, he was empirically placed on vancomycin and Zosyn, arterial and venous Doppler were done, awaiting to review records sent from [facility], vascular surgery was consulted. Patient was empirically placed on vancomycin and Zosyn. Patient was seen and examined today, after 24 hours of treatment, he has achieve d significant improvement over the left lower extremity cellulitis, the area appears to be fading and getting less prominent. I noticed that lower part of the incision is a little soft so I am questioning whether he is developing a fluctuation there. Patient was seen by vascular surgery and no further intervention was recommended, No other event overnight. Physical Exam Physical Exam: VITALS: Reviewed. GEN: Healthy appearing, well-developed, NAD. CV: RRR, no m/r/g. LUNGS: CTAB, no w/r/c. ABD: Soft, NT/ND, NBS, no masses or organomegaly. : N/A SKIN: No gross drainage, the area of cellulitis seems to have much receded from yesterday, I am suspecting that the bottom half of the incision site over the culver has a soft underlying tissue texture on exam, will monitor this area carefully in case he started developing a fluctuation there Results & Data Results & Data Vital Signs (Past 12 Hours) Vital Signs Temp Pulse Pulse Resp BP Pulse Ox O2 Del Method 11/08/24 07:33 37.2 C 73 124/61 91 Nasal Cannula 11/08/24 03:45 37.0 C 66 18 118/55 L 90 Nasal Cannula 11/07/24 23:54 80 11/07/24 23:18 92 Nasal Cannula 11/07/24 23:17 37.8 C H 78 17 103/44 L 84 L Room Air O2 Flow Rate 11/08/24 07:33 3.0 11/08/24 03:45 3 11/07/24 23:54 11/07/24 23:18 3 11/07/24 23:17 Laboratory Results Laboratory Results - last 24 hr 11/07/24 11/07/24 11/07/24 11:22 16:00 20:08 WBC RBC Hgb Hct MCV MCH MCHC RDW Std Deviation RDW Coeff of Sandie Plt Count MPV Immature Gran % (Auto) Neut % (Auto) Lymph % (Auto) Garrard % (Auto) Eos % (Auto) Baso % (Auto) Neut # (Auto) Lymph # (Auto) Garrard # (Auto) Eos # (Auto) Baso # (Auto) Immature Gran # (Auto) Sodium Potassium Chloride Carbon Dioxide Anion Gap BUN Creatinine Est Cr Clr Drug Dosing eGFR BUN/Creatinine Ratio Glucose POC Glucose 165 H 138 H 158 H Calcium Magnesium 11/08/24 11/08/24 06:07 07:30 WBC 10.58 RBC 3.52 L Hgb 9.1 L Hct 29.4 L MCV 83.5 MCH 25.9 MCHC 31.0 L RDW Std Deviation 49.5 H RDW Coeff of Sandie 16.2 H Plt Count 113 L MPV 13.0 H Immature Gran % (Auto) 0.4 Neut % (Auto) 68.3 Lymph % (Auto) 20.2 Garrard % (Auto) 9.4 Eos % (Auto) 1.4 Baso % (Auto) 0.3 Neut # (Auto) 7.23 H Lymph # (Auto) 2.14 Garrard # (Auto) 0.99 H Eos # (Auto) 0.15 Baso # (Auto) 0.03 Immature Gran # (Auto) 0.04 Sodium 136 Potassium 4.0 Chloride 103 Carbon Dioxide 28 Anion Gap 5 BUN 14 Creatinine 0.95 Est Cr Clr Drug Dosing 64.5 eGFR 77.47 BUN/Creatinine Ratio 14.7 Glucose 120 H POC Glucose 123 H Calcium 8.5 L Magnesium 1.8 Medications Administered Current Inpatient Medications Acetaminophen (Acetaminophen 325 Mg Tab) 650 mg PO Q6H PRN PRN Reason: Pain or Fever Stop: 12/07/24 05:29 Last Admin: 11/08/24 00:54 Dose: 650 mg Allopurinol (Allopurinol 300 Mg Tab) 300 mg PO HS [facility] Stop: 12/07/24 20:59 Last Admin: 11/07/24 20:14 Dose: 300 mg Apixaban (Apixaban 5 Mg Tablet) 5 mg PO [facility] Stop: 12/07/24 08:59 Last Admin: 11/08/24 09:10 Dose: 5 mg Aspirin (Aspirin 81 Mg Ectab) 81 mg PO DAILY [facility] Stop: 12/07/24 08:59 Last Admin: 11/08/24 09:10 Dose: 81 mg Atorvastatin Calcium (Atorvastatin 40 Mg Tab) 40 mg PO DAILY [facility] Stop: 12/07/24 08:59 Last Admin: 11/08/24 09:09 Dose: 40 mg Dextrose (Dextrose 50% 50 Ml Syringe) 25 - 50 ml IV UD PRN; Protocol PRN Reason: Hypoglycemia Protocol Stop: 12/07/24 05:29 Gabapentin (Gabapentin 600 Mg Tab) 600 mg PO TID [place] Stop: 12/07/24 08:59 Last Admin: 11/08/24 09:10 Dose: 600 mg Glucagon (Glucagon For Inj 1 Mg Vial) 1 mg SQ UD PRN; Protocol PRN Reason: Hypoglycemia Protocol Stop: 12/07/24 05:29 Glucose (Glucose 40% Gel 15 Gm Tube) 15 - 30 gm PO UD PRN; Protocol PRN Reason: Hypoglycemia Protocol Stop: 12/07/24 05:29 Glucose (Glucose 10 Tab/Tube) 4 - 8 tab PO UD PRN; Protocol PRN Reason: Hypoglycemia Protocol Stop: 12/07/24 05:29 Piperacillin Sod/Tazobactam Sod (Zosyn) 4.5 gm in 100 mls @ 25 mls/hr IV Q8H [facility]; Protocol Stop: 11/14/24 05:59 Last Admin: 11/08/24 05:38 Dose: 25 mls/hr Vancomycin HCl 1,500 mg/ (Sodium Chloride) 530 mls @ 200 mls/hr IV Q24H [facility] Stop: 11/14/24 07:59 Last Admin: 11/08/24 09:07 Dose: 200 mls/hr Insulin Aspart (Insulin Aspart Per Unit Charge) 0 units SC ACHS [facility] Stop: 12/07/24 11:29 Last Admin: 11/08/24 08:14 Dose: Not Given Metoprolol Succinate (Metoprolol Succ 50mg Ext Rel Tab) 150 mg PO AMHS [facility] Stop: 12/07/24 08:59 Last Admin: 11/08/24 09:09 Dose: 150 mg Miscellaneous (Carbohydrates For Hypoglycemia ) 15 - 30 gm PO UD PRN PRN Reason: Hypoglycemia Protocol Stop: 12/07/24 05:29 Miscellaneous Information (Vancomycin Consult Active) 1 each N/A UD PRN PRN Reason: Consult Stop: 12/06/24 22:07 Multivitamins (Multivitamin Tab) 1 tab PO DAILY [place] Stop: 12/07/24 08:59 Last Admin: 11/08/24 09:10 Dose: 1 tab Nitroglycerin (Nitroglycerin Sl 0.4 Mg/Tab Tab) 0.4 mg SL Q5M PRN PRN Reason: Chest Pain Stop: 12/07/24 05:29 Pantoprazole Sodium (Pantoprazole 40 Mg Tab) 40 mg PO DAILYBB [place] Stop: 12/07/24 06:29 Last Admin: 11/08/24 05:39 Dose: 40 mg Polyethylene Glycol (Polyethylene (Miralax) 17 Gm Pack) 17 gm PO DAILY PRN PRN Reason: Constipation Stop: 12/07/24 05:29 Tramadol HCl (Tramadol Hcl 50 Mg Tablet) 50 mg PO Q6 PRN PRN Reason: Pain Stop: 12/07/24 05:29 Vibegron (Vibegron 75 Mg Tab) 75 mg PO QAM [facility] Stop: 12/07/24 08:59 Last Admin: 11/08/24 09:09 Dose: 75 mg (2) Sepsis Sepsis acute organ dysfunction status: without acute organ dysfunction Sepsis type: sepsis due to unspecified organism Qualified Code(s): A41.9 - Sepsis, unspecified organism (6) Diabetes mellitus type 2, controlled 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
[2024-11-09 07:43] LABS: Creatinine Clr Calc Pharmacy 74.1 ml/min
--- NOTE | 2024-11-09 08:44 | Hospitalist Progress Note ---
Date of Service November 09, 2024 Assessment & Plan (1) Cellulitis of left lower extremity: Plan: Clinically responding well to combination of vancomycin and Zosyn, I do not see any MRSA screen so we will have to continue with this combination, will wait until complete resolution of erythema, patient's yesterday had a Tmax of 38, await complete defervescence. No further recommendation by vascular surgery. (2) Sepsis: Plan: Continue treating cellulitis, clinically stable otherwise. (3) Peripheral arterial disease: Plan: He underwent recent bypass of left popliteal to dorsalis pedis bypass at [facility]. Vascular surgery is on board, awaiting documents from that facility to be reviewed. Here he had a venous Doppler which showed a 9 x 2 cm postoperative collection appears to be. Duplex arterial Doppler was reviewed, showed marked stenotic left anterior tibialis artery, patent vascular graft between left distal popliteal artery and left dorsalis pedis with again the same observation of that ill-defined 9 x 2 cm inflammatory/postsurgical collection. No further recommendation by vascular surgery. (4) Hypomagnesemia: Plan: Replaced and resolved. (5) Dyslipidemia: Plan: Continue with Lipitor 40 mg daily. (6) Diabetes mellitus type 2, controlled: Plan: Glycemic control is adequate, blood sugars ranging from 137-149, use sliding scale coverage for now. Continue with gabapentin. (7) Chronic gout: Plan: Continue with allopurinol 300 mg at bedtime (8) Paroxysmal atrial fibrillation: Plan: Heart rate is controlled, continue with Eliquis 5 mg twice daily, aspirin 81 mg daily, apparently patient is on Toprol XL 150 mg twice daily at home which will be continued. Plan Continue with empirical vancomycin and Zosyn, monitor resolution of cellulitis until it is complete, Bañuelos catheter was discontinued. Potential transition to oral antibiotic on 11/10/2024. Admission and Anticipated Discharge Date Admission Date: November 07, 2024 Subjective Patient is a 88-year-old gentleman with history of diabetes mellitus type 2, dyslipidemia, chronic gout, paroxysmal atrial fibrillation on anticoagulation, peripheral vascular disease status post recent bypass surgery from left popliteal artery to dorsalis pedis at [facility] and history of coronary artery disease who was admitted after a month of with cellulitis of the left lower extremity, he appears to be having sepsis on admission with fever, hemodynamically was stable, he was empirically placed on vancomycin and Zosyn, arterial and venous Doppler were done, awaiting to review records sent from [facility], vascular surgery was consulted. Patient was empirically placed on vancomycin and Zosyn. Patient was seen and examined today, overall significant improvement has been noticed over the past several days, the area of erythema is now limited to around the incision site, on examination today I have no longer any suspicion for underlying fluctuation or abscess, based on the input from vascular surgery, no further intervention or imaging is suggested at this point. Continue with IV antibiotic treatment for now. Bañuelos catheter will be discontinued. Physical Exam Physical Exam: VITALS: Reviewed. GEN: Healthy appearing, well-developed, NAD. CV: RRR, no m/r/g. LUNGS: CTAB, no w/r/c. ABD: Soft, NT/ND, NBS, no masses or organomegaly. SKIN: No suspicion for any fluctuation anymore, the area of erythema is now limited to probably around 4 to 5 cm to the medial aspect of the incision but otherwise it seems to be resolving well Results & Data Results & Data Vital Signs (Past 12 Hours) Vital Signs Temp Pulse Pulse Resp BP Pulse Ox O2 Del Method 11/09/24 07:42 72 11/09/24 04:36 37.4 C 71 18 140/74 92 Nasal Cannula 11/08/24 23:57 37.2 C 64 18 145/74 H 97 Nasal Cannula 11/08/24 23:32 68 11/08/24 20:51 Nasal Cannula O2 Flow Rate 11/09/24 07:42 11/09/24 04:36 3 11/08/24 23:57 3 11/08/24 23:32 11/08/24 20:51 3 Laboratory Results Laboratory Results - last 24 hr 11/08/24 11/08/24 11/08/24 11:37 16:22 20:23 Creatinine Est Cr Clr Drug Dosing eGFR POC Glucose 177 H 138 H 149 H Random Vancomycin 11/09/24 11/09/24 05:39 07:51 Creatinine 0.83 Est Cr Clr Drug Dosing 74.1 eGFR 84.71 POC Glucose 137 H Random Vancomycin 6.9 L Medications Administered Current Inpatient Medications Acetaminophen (Acetaminophen 325 Mg Tab) 650 mg PO Q6H PRN PRN Reason: Pain or Fever Stop: 12/07/24 05:29 Last Admin: 11/08/24 00:54 Dose: 650 mg Allopurinol (Allopurinol 300 Mg Tab) 300 mg PO HS [facility] Stop: 12/07/24 20:59 Last Admin: 11/08/24 20:37 Dose: 300 mg Apixaban (Apixaban 5 Mg Tablet) 5 mg PO AMHS [facility] Stop: 12/07/24 08:59 Last Admin: 11/09/24 08:05 Dose: 5 mg Aspirin (Aspirin 81 Mg Ectab) 81 mg PO DAILY [place] Stop: 12/07/24 08:59 Last Admin: 11/09/24 08:05 Dose: 81 mg Atorvastatin Calcium (Atorvastatin 40 Mg Tab) 40 mg PO DAILY [place] Stop: 12/07/24 08:59 Last Admin: 11/09/24 08:06 Dose: 40 mg Dextrose (Dextrose 50% 50 Ml Syringe) 25 - 50 ml IV UD PRN; Protocol PRN Reason: Hypoglycemia Protocol Stop: 12/07/24 05:29 Gabapentin (Gabapentin 600 Mg Tab) 600 mg PO TID [place] Stop: 12/07/24 08:59 Last Admin: 11/09/24 08:06 Dose: 600 mg Glucagon (Glucagon For Inj 1 Mg Vial) 1 mg SQ UD PRN; Protocol PRN Reason: Hypoglycemia Protocol Stop: 12/07/24 05:29 Glucose (Glucose 40% Gel 15 Gm Tube) 15 - 30 gm PO UD PRN; Protocol PRN Reason: Hypoglycemia Protocol Stop: 12/07/24 05:29 Glucose (Glucose 10 Tab/Tube) 4 - 8 tab PO UD PRN; Protocol PRN Reason: Hypoglycemia Protocol Stop: 12/07/24 05:29 Piperacillin Sod/Tazobactam Sod (Zosyn) 4.5 gm in 100 mls @ 25 mls/hr IV Q8H [facility]; Protocol Stop: 11/14/24 05:59 Last Admin: 11/09/24 05:45 Dose: 25 mls/hr Vancomycin HCl 1,500 mg/ (Sodium Chloride) 530 mls @ 200 mls/hr IV Q24H [facility] Stop: 11/14/24 07:59 Last Infusion: 11/08/24 15:18 Dose: Infused Insulin Aspart (Insulin Aspart Per Unit Charge) 0 units SC ACHS [facility] Stop: 12/07/24 11:29 Last Admin: 11/08/24 20:33 Dose: Not Given Metoprolol Succinate (Metoprolol Succ 50mg Ext Rel Tab) 150 mg PO AMHS [place] Stop: 12/07/24 08:59 Last Admin: 11/09/24 08:06 Dose: 150 mg Miscellaneous (Carbohydrates For Hypoglycemia ) 15 - 30 gm PO UD PRN PRN Reason: Hypoglycemia Protocol Stop: 12/07/24 05:29 Miscellaneous Information (Vancomycin Consult Active) 1 each N/A UD PRN PRN Reason: Consult Stop: 12/06/24 22:07 Multivitamins (Multivitamin Tab) 1 tab PO DAILY [place] Stop: 12/07/24 08:59 Last Admin: 11/09/24 08:06 Dose: 1 tab Nitroglycerin (Nitroglycerin Sl 0.4 Mg/Tab Tab) 0.4 mg SL Q5M PRN PRN Reason: Chest Pain Stop: 12/07/24 05:29 Pantoprazole Sodium (Pantoprazole 40 Mg Tab) 40 mg PO DAILYBB [place] Stop: 12/07/24 06:29 Last Admin: 11/09/24 05:45 Dose: 40 mg Polyethylene Glycol (Polyethylene (Miralax) 17 Gm Pack) 17 gm PO DAILY PRN PRN Reason: Constipation Stop: 12/07/24 05:29 Tramadol HCl (Tramadol Hcl 50 Mg Tablet) 50 mg PO Q6 PRN PRN Reason: Pain Stop: 12/07/24 05:29 Vibegron (Vibegron 75 Mg Tab) 75 mg PO QAM [facility] Stop: 12/07/24 08:59 Last Admin: 11/09/24 08:06 Dose: 75 mg (2) Sepsis Sepsis acute organ dysfunction status: without acute organ dysfunction Sepsis type: sepsis due to unspecified organism Qualified Code(s): A41.9 - Sepsis, unspecified organism (6) Diabetes mellitus type 2, controlled 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
[2024-11-09] MEDS: VANCOMYCIN LEVEL ONE (08:45)
--- NOTE | 2024-11-09 09:28 | Pharmacy Report ---
Pharmacy PK ABX Note - Date of Service November 09, 2024 - Assessment and Plan Assessment 11/09/24: -Vancomycin level this morning came back low at 6.9 which would give AUCs in 300s based on PK data from [facility], below goal range of 400-600 -Will change dose to 1250 mg and decrease dosing frequency to 12 hours to attain therapeutic AUC goal. 11/07/24: 88 year old M receiving vancomycin for treatment of LLE Cellulitis and sepsis. Pertinent microbiologic data includes: urine and blood cultures pending. Patient had fever of 38.4'C last night but resolved. PMH includes recent bypass of left popliteal to dorsalis pedis @ [facility] [place], PAD, A fib, gout, dyslipidemia. Recent abx use, possibly augmentin, keflex, doxy, bactrim, and cefepime. Day # 1 of antimicrobial therapy. Plan Vancomycin * Current regimen: 1500 mg IV every 24 hours * Random level obtained 11/09/24 at 0539 resulted as 6.9 mcg/mL. * Predicted AUC at steady state: 319 mg/L.hr on current regimen * Change to 1250 mg IV every 12 hours, with AUC predicted to be at 515 at steady state, within goal AUC of 400-600. * Will repeat level in the next 48-72 hours if therapy is continued and/or change in patient clinical status Piperacillin/tazobactam 4.5g q8H Pharmacy will continue to follow and will adjust dose/frequency as necessary. Thank you. Pharmacy has transitioned to AUC monitoring for vancomycin. AUC/ALEXANDREA is the prefe rred PK/PD target and is associated with decreased risk of nephrotoxicity compared to traditional trough targets.
[2024-11-09] MEDS: VANCOMYCIN HCL 1,250 MG in SODIUM CHLORIDE 0.9% 250 ML IV SCH (20:08)
[2024-11-09] MEDS: traMADol HCL 50 MG TABLET PO PRN (22:34)
--- NOTE | 2024-11-10 09:14 | Hospitalist Progress Note ---
Date of Service November 10, 2024 Assessment & Plan (1) Cellulitis of left lower extremity: Plan: Clinically responding well to combination of vancomycin and Zosyn, I do not see any MRSA screen, will continue with current vancomycin and Zosyn until Tuesday, will then decide if transition to p.o. antibiotics. (2) Sepsis: Plan: Continue treating cellulitis, clinically stable otherwise. (3) Peripheral arterial disease: Plan: He underwent recent bypass of left popliteal to dorsalis pedis bypass at [facility]. Vascular surgery is on board, awaiting documents from that facility to be reviewed. Here he had a venous Doppler which showed a 9 x 2 cm postoperative collection appears to be. Duplex arterial Doppler was reviewed, showed marked stenotic left anterior tibialis artery, patent vascular graft between left distal popliteal artery and left dorsalis pedis with again the same observation of that ill-defined 9 x 2 cm inflammatory/postsurgical collection. No further recommendation by vascular surgery. (4) Hypomagnesemia: Plan: Replaced and resolved. (5) Dyslipidemia: Plan: Continue with Lipitor 40 mg daily. (6) Diabetes mellitus type 2, controlled: Plan: Glycemic control is adequate, continue to use sliding scale coverage for now. Continue with gabapentin. (7) Chronic gout: Plan: Continue with allopurinol 300 mg at bedtime (8) Paroxysmal atrial fibrillation: Plan: Heart rate is controlled, continue with Eliquis 5 mg twice daily, aspirin 81 mg daily, apparently patient is on Toprol XL 150 mg twice daily at home which will be continued. Plan Continue with empirical vancomycin and Zosyn, until Tuesday we will then try to transition to p.o. antibiotics. In regard to his ambulation, he was seen by PT, while he is in the hospital, continue with acute care PT. Admission and Anticipated Discharge Date Admission Date: November 07, 2024 Subjective Patient is a 88-year-old gentleman with history of diabetes mellitus type 2, dyslipidemia, chronic gout, paroxysmal atrial fibrillation on anticoagulation, peripheral vascular disease status post recent bypass surgery from left popliteal artery to dorsalis pedis at [facility] and history of coronary artery disease who was admitted after a month of with cellulitis of the left lower extremity, he appears to be having sepsis on admission with fever, hemodynamically was stable, he was empirically placed on vancomycin and Zosyn, arterial and venous Doppler were done, awaiting to review records sent from [facility], vascular surgery was consulted. Patient was empirically placed on vancomycin and Zosyn. Patient was seen and examined today, the area is to show improvement, I feel that we probably need to continue with this combination for at least another 48 hours Physical Exam Physical Exam: VITALS: Reviewed. GEN: Healthy appearing, well-developed, NAD. CV: RRR, no m/r/g. LUNGS: CTAB, no w/r/c. ABD: Soft, NT/ND, NBS, no masses or organomegaly. SKIN: Further improvement and receding of erythema was noticed. Results & Data Results & Data Vital Signs (Past 12 Hours) Vital Signs Temp Pulse Pulse Resp BP BP Pulse Ox 11/10/24 07:10 37.2 C 69 19 146/74 H 94 11/10/24 05:40 69 11/10/24 02:51 37.2 C 64 18 140/75 96 11/09/24 22:38 37.0 C 69 19 133/71 92 11/09/24 21:47 71 O2 Del Method O2 Flow Rate 11/10/24 07:10 Nasal Cannula 2.5 11/10/24 05:40 11/10/24 02:51 Room Air 11/09/24 22:38 Nasal Cannula 2 11/09/24 21:47 Laboratory Results Laboratory Results - last 24 hr 11/09/24 11/09/24 11/09/24 11:22 15:57 19:59 Creatinine Est Cr Clr Drug Dosing eGFR POC Glucose 180 H 139 H 117 H 11/10/24 11/10/24 07:07 08:38 Creatinine Pending Est Cr Clr Drug Dosing Pending eGFR Pending POC Glucose 147 H Medications Administered Current Inpatient Medications Acetaminophen (Acetaminophen 325 Mg Tab) 650 mg PO Q6H PRN PRN Reason: Pain or Fever Stop: 12/07/24 05:29 Last Admin: 11/08/24 00:54 Dose: 650 mg Allopurinol (Allopurinol 300 Mg Tab) 300 mg PO HS [place] Stop: 12/07/24 20:59 Last Admin: 11/09/24 20:06 Dose: 300 mg Apixaban (Apixaban 5 Mg Tablet) 5 mg PO AMHS [place] Stop: 12/07/24 08:59 Last Admin: 11/10/24 08:50 Dose: 5 mg Aspirin (Aspirin 81 Mg Ectab) 81 mg PO DAILY [facility] Stop: 12/07/24 08:59 Last Admin: 11/10/24 08:50 Dose: 81 mg Atorvastatin Calcium (Atorvastatin 40 Mg Tab) 40 mg PO DAILY [place] Stop: 12/07/24 08:59 Last Admin: 11/10/24 08:50 Dose: 40 mg Dextrose (Dextrose 50% 50 Ml Syringe) 25 - 50 ml IV UD PRN; Protocol PRN Reason: Hypoglycemia Protocol Stop: 12/07/24 05:29 Gabapentin (Gabapentin 600 Mg Tab) 600 mg PO TID [place] Stop: 12/07/24 08:59 Last Admin: 11/10/24 08:50 Dose: 600 mg Glucagon (Glucagon For Inj 1 Mg Vial) 1 mg SQ UD PRN; Protocol PRN Reason: Hypoglycemia Protocol Stop: 12/07/24 05:29 Glucose (Glucose 40% Gel 15 Gm Tube) 15 - 30 gm PO UD PRN; Protocol PRN Reason: Hypoglycemia Protocol Stop: 12/07/24 05:29 Glucose (Glucose 10 Tab/Tube) 4 - 8 tab PO UD PRN; Protocol PRN Reason: Hypoglycemia Protocol Stop: 12/07/24 05:29 Piperacillin Sod/Tazobactam Sod (Zosyn) 4.5 gm in 100 mls @ 25 mls/hr IV Q8H [facility]; Protocol Stop: 11/14/24 05:59 Last Admin: 11/10/24 06:02 Dose: 25 mls/hr Vancomycin HCl 1,250 mg/ (Sodium Chloride) 275 mls @ 200 mls/hr IV Q12H [facility] Stop: 11/13/24 19:59 Last Admin: 11/10/24 08:47 Dose: 200 mls/hr Insulin Aspart (Insulin Aspart Per Unit Charge) 0 units SC ACHS [facility] Stop: 12/07/24 11:29 Last Admin: 11/10/24 08:33 Dose: Not Given Metoprolol Succinate (Metoprolol Succ 50mg Ext Rel Tab) 150 mg PO AMHS [facility] Stop: 12/07/24 08:59 Last Admin: 11/10/24 08:50 Dose: 150 mg Miscellaneous (Carbohydrates For Hypoglycemia ) 15 - 30 gm PO UD PRN PRN Reason: Hypoglycemia Protocol Stop: 12/07/24 05:29 Miscellaneous Information (Vancomycin Consult Active) 1 each N/A UD PRN PRN Reason: Consult Stop: 12/06/24 22:07 Multivitamins (Multivitamin Tab) 1 tab PO DAILY [place] Stop: 12/07/24 08:59 Last Admin: 11/10/24 08:50 Dose: 1 tab Nitroglycerin (Nitroglycerin Sl 0.4 Mg/Tab Tab) 0.4 mg SL Q5M PRN PRN Reason: Chest Pain Stop: 12/07/24 05:29 Pantoprazole Sodium (Pantoprazole 40 Mg Tab) 40 mg PO DAILYBB [place] Stop: 12/07/24 06:29 Last Admin: 11/10/24 06:03 Dose: 40 mg Polyethylene Glycol (Polyethylene (Miralax) 17 Gm Pack) 17 gm PO DAILY PRN PRN Reason: Constipation Stop: 12/07/24 05:29 Tramadol HCl (Tramadol Hcl 50 Mg Tablet) 50 mg PO Q6 PRN PRN Reason: Pain Stop: 12/07/24 05:29 Last Admin: 11/10/24 08:49 Dose: 50 mg Vibegron (Vibegron 75 Mg Tab) 75 mg PO QAM [place] Stop: 12/07/24 08:59 Last Admin: 11/10/24 08:50 Dose: 75 mg (2) Sepsis Sepsis acute organ dysfunction status: without acute organ dysfunction Sepsis type: sepsis due to unspecified organism Qualified Code(s): A41.9 - Sepsis, unspecified organism (6) Diabetes mellitus type 2, controlled Diabetes mellitus fci insulin use: without fci use Diabetes mellitus complication status: with neurologic complications Diabetes mellitus complication detail: with polyneuropathy Qualified Code(s): E11.42 - Type 2 diabetes mellitus with diabetic polyneuropathy (7) Chronic gout Gout site: unspecified site Gout etiology: idiopathic Presence of tophus: without tophus Qualified Code(s): M1A.00X0 - Idiopathic chronic gout, unspecified site, without tophus (tophi)
[2024-11-10 09:17] LABS: Creatinine Clr Calc Pharmacy 80.9 ml/min
[2024-11-10] MEDS: POLYETHYLENE (MIRALAX) 17 GM PACK PO PRN (09:55)
[2024-11-11 06:49] LABS: Creatinine Clr Calc Pharmacy 76.3 ml/min
--- NOTE | 2024-11-11 09:13 | Hospitalist Progress Note ---
Date of Service November 11, 2024 Assessment & Plan (1) Cellulitis of left lower extremity: Plan: With current improvement, will continue with vancomycin and Zosyn, reevaluate tomorrow potential transition to oral antibiotic tomorrow. (2) Sepsis: Plan: Continue treating cellulitis, clinically stable otherwise. (3) Peripheral arterial disease: Plan: He underwent recent bypass of left popliteal to dorsalis pedis bypass at [facility]. Vascular surgery is on board, awaiting documents from that facility to be reviewed. Here he had a venous Doppler which showed a 9 x 2 cm postoperative collection appears to be. Duplex arterial Doppler was reviewed, showed marked stenotic left anterior tibialis artery, patent vascular graft between left distal popliteal artery and left dorsalis pedis with again the same observation of that ill-defined 9 x 2 cm inflammatory/postsurgical collection. No further recommendation by vascular surgery. (4) Hypomagnesemia: Plan: Replaced and resolved. (5) Dyslipidemia: Plan: Continue with Lipitor 40 mg daily. (6) Diabetes mellitus type 2, controlled: Plan: Glycemic control is adequate, continue to use sliding scale coverage for now. Continue with gabapentin. (7) Chronic gout: Plan: Continue with allopurinol 300 mg at bedtime (8) Paroxysmal atrial fibrillation: Plan: Heart rate is controlled, continue with Eliquis 5 mg twice daily, aspirin 81 mg daily, apparently patient is on Toprol XL 150 mg twice daily at home which will be continued. Plan Continue with empirical vancomycin and Zosyn, until Tuesday we will then try to transition to p.o. antibiotics. In regard to his ambulation, will get the final opinion about recommendation on discharge from physical therapy tomorrow. Admission and Anticipated Discharge Date Admission Date: November 07, 2024 Subjective Patient is a 88-year-old gentleman with history of diabetes mellitus type 2, dyslipidemia, chronic gout, paroxysmal atrial fibrillation on anticoagulation, peripheral vascular disease status post recent bypass surgery from left popliteal artery to dorsalis pedis at [facility] and history of coronary artery disease who was admitted after a month of with cellulitis of the left lower extremity, he appears to be having sepsis on admission with fever, hemodynamically was stable, he was empirically placed on vancomycin and Zosyn, arterial and venous Doppler were done, awaiting to review records sent from [facility], vascular surgery was consulted. Patient was empirically placed on vancomycin and Zosyn. He continued to show improvement He was seen and examined today, I cannot say that he has made a huge improvement since yesterday but overall he is in the right direction. Physical Exam Physical Exam: VITALS: Reviewed. GEN: Healthy appearing, well-developed, NAD. CV: RRR, no m/r/g. LUNGS: CTAB, no w/r/c. ABD: Soft, NT/ND, NBS, no masses or organomegaly. SKIN: No significant noticeable change from yesterday. Results & Data Results & Data Vital Signs (Past 12 Hours) Vital Signs Temp Pulse Pulse Resp BP BP Pulse Ox 11/11/24 07:17 37.0 C 60 18 152/73 H 95 11/11/24 05:40 70 11/11/24 03:01 36.8 C 58 L 18 162/72 H 92 11/10/24 23:30 70 11/10/24 22:12 36.3 C L 68 20 128/65 93 11/10/24 21:30 O2 Del Method 11/11/24 07:17 Room Air 11/11/24 05:40 11/11/24 03:01 Room Air 11/10/24 23:30 11/10/24 22:12 Room Air 11/10/24 21:30 Room Air Laboratory Results Laboratory Results - last 24 hr 11/10/24 11/10/24 11/10/24 08:38 11:27 16:30 Creatinine 0.76 Est Cr Clr Drug Dosing 80.9 eGFR 86.99 POC Glucose 184 H 117 H Random Vancomycin 11/10/24 11/11/24 11/11/24 20:34 06:03 07:19 Creatinine 0.80 Est Cr Clr Drug Dosing 76.3 eGFR 85.65 POC Glucose 140 H 133 H Random Vancomycin 12.5 Medications Administered Current Inpatient Medications Acetaminophen (Acetaminophen 325 Mg Tab) 650 mg PO Q6H PRN PRN Reason: Pain or Fever Stop: 12/07/24 05:29 Last Admin: 11/11/24 08:49 Dose: 650 mg Allopurinol (Allopurinol 300 Mg Tab) 300 mg PO HS [place] Stop: 12/07/24 20:59 Last Admin: 11/10/24 19:40 Dose: 300 mg Apixaban (Apixaban 5 Mg Tablet) 5 mg PO AMHS [place] Stop: 12/07/24 08:59 Last Admin: 11/11/24 08:32 Dose: 5 mg Aspirin (Aspirin 81 Mg Ectab) 81 mg PO DAILY [place] Stop: 12/07/24 08:59 Last Admin: 11/11/24 08:32 Dose: 81 mg Atorvastatin Calcium (Atorvastatin 40 Mg Tab) 40 mg PO DAILY [place] Stop: 12/07/24 08:59 Last Admin: 11/11/24 08:32 Dose: 40 mg Dextrose (Dextrose 50% 50 Ml Syringe) 25 - 50 ml IV UD PRN; Protocol PRN Reason: Hypoglycemia Protocol Stop: 12/07/24 05:29 Gabapentin (Gabapentin 600 Mg Tab) 600 mg PO TID [place] Stop: 12/07/24 08:59 Last Admin: 11/11/24 08:32 Dose: 600 mg Glucagon (Glucagon For Inj 1 Mg Vial) 1 mg SQ UD PRN; Protocol PRN Reason: Hypoglycemia Protocol Stop: 12/07/24 05:29 Glucose (Glucose 40% Gel 15 Gm Tube) 15 - 30 gm PO UD PRN; Protocol PRN Reason: Hypoglycemia Protocol Stop: 12/07/24 05:29 Glucose (Glucose 10 Tab/Tube) 4 - 8 tab PO UD PRN; Protocol PRN Reason: Hypoglycemia Protocol Stop: 12/07/24 05:29 Piperacillin Sod/Tazobactam Sod (Zosyn) 4.5 gm in 100 mls @ 25 mls/hr IV Q8H [facility]; Protocol Stop: 11/14/24 05:59 Last Admin: 11/11/24 05:50 Dose: 25 mls/hr Vancomycin HCl 1,250 mg/ (Sodium Chloride) 275 mls @ 200 mls/hr IV Q12H [place] Stop: 11/13/24 19:59 Last Infusion: 11/10/24 21:26 Dose: Infused Insulin Aspart (Insulin Aspart Per Unit Charge) 0 units SC ACHS [facility] Stop: 12/07/24 11:29 Last Admin: 11/11/24 08:29 Dose: 3 units Metoprolol Succinate (Metoprolol Succ 50mg Ext Rel Tab) 150 mg PO AMHS [facility] Stop: 12/07/24 08:59 Last Admin: 11/11/24 08:32 Dose: 150 mg Miscellaneous (Carbohydrates For Hypoglycemia ) 15 - 30 gm PO UD PRN PRN Reason: Hypoglycemia Protocol Stop: 12/07/24 05:29 Miscellaneous Information (Vancomycin Consult Active) 1 each N/A UD PRN PRN Reason: Consult Stop: 12/06/24 22:07 Multivitamins (Multivitamin Tab) 1 tab PO DAILY [place] Stop: 12/07/24 08:59 Last Admin: 11/11/24 08:32 Dose: 1 tab Nitroglycerin (Nitroglycerin Sl 0.4 Mg/Tab Tab) 0.4 mg SL Q5M PRN PRN Reason: Chest Pain Stop: 12/07/24 05:29 Pantoprazole Sodium (Pantoprazole 40 Mg Tab) 40 mg PO DAILYBB [place] Stop: 12/07/24 06:29 Last Admin: 11/11/24 05:50 Dose: 40 mg Polyethylene Glycol (Polyethylene (Miralax) 17 Gm Pack) 17 gm PO DAILY PRN PRN Reason: Constipation Stop: 12/07/24 05:29 Last Admin: 11/11/24 07:49 Dose: 17 gm Tramadol HCl (Tramadol Hcl 50 Mg Tablet) 50 mg PO Q6 PRN PRN Reason: Pain Stop: 12/07/24 05:29 Last Admin: 11/10/24 08:49 Dose: 50 mg Vibegron (Vibegron 75 Mg Tab) 75 mg PO QAM [facility] Stop: 12/07/24 08:59 Last Admin: 11/11/24 08:32 Dose: 75 mg (2) Sepsis Sepsis acute organ dysfunction status: without acute organ dysfunction Sepsis type: sepsis due to unspecified organism Qualified Code(s): A41.9 - Sepsis, unspecified organism (6) Diabetes mellitus type 2, controlled Diabetes mellitus prison insulin use: without prison use Diabetes mellitus complication status: with neurologic complications Diabetes mellitus complication detail: with polyneuropathy Qualified Code(s): E11.42 - Type 2 diabetes mellitus with diabetic polyneuropathy (7) Chronic gout Gout site: unspecified site Gout etiology: idiopathic Presence of tophus: without tophus Qualified Code(s): M1A.00X0 - Idiopathic chronic gout, unspecified site, without tophus (tophi)
--- NOTE | 2024-11-11 09:41 | Pharmacy Report ---
Pharmacy PK ABX Note - Date of Service November 11, 2024 - Assessment and Plan Assessment 11/11: * Vanc level predicted to achieve goal AUC continue current regimen. 11/09/24: -Vancomycin level this morning came back low at 6.9 which would give AUCs in 300s based on PK data from [facility], below goal range of 400-600 -Will change dose to 1250 mg and decrease dosing frequency to 12 hours to attain therapeutic AUC goal. 11/07/24: 88 year old M receiving vancomycin for treatment of LLE Cellulitis and sepsis. Pertinent microbiologic data includes: urine and blood cultures pending. Patient had fever of 38.4'C last night but resolved. PMH includes recent bypass of left popliteal to dorsalis pedis @ [facility] [place], PAD, A fib, gout, dyslipidemia. Recent abx use, possibly augmentin, keflex, doxy, bactrim, and cefepime. Day # 1 of antimicrobial therapy. Plan Vancomycin * Current regimen: 1250 mg IV every 12 hours * Random level obtained 11/11/24 resulted as 12.5 mcg/mL. This is predicted to achieve target AUC/ALEXANDREA of 400-600 mg/L.hr * Predicted AUC at steady state: 469 mg/L.hr * Continue 1250 mg IV every 12 hours * Will repeat level in the next 48-72 hours if therapy is continued and/or change in patient clinical status Piperacillin/tazobactam 4.5g q8H Pharmacy will continue to follow and will adjust dose/frequency as necessary. Thank you. Pharmacy has transitioned to AUC monitoring for vancomycin. AUC/ALEXANDREA is the preferred PK/PD target and is associated with decreased risk of nephrotoxicity compared to traditional trough targets.
[2024-11-11] MEDS ORDERED: Nursing to Pharmacy Communication SCH (10:45)
--- NOTE | 2024-11-12 11:27 | Discharge Summary ---
Discharge Summary Date of Service November 12, 2024 Principal Dx & Hospital Course #1 = Principal Diagnosis (1) Cellulitis of left lower extremity: (2) Sepsis: (3) Peripheral arterial disease: (4) Hypomagnesemia: (5) Dyslipidemia: Continue with Lipitor 40 mg daily. (6) Diabetes mellitus type 2, controlled: (7) Chronic gout: (8) Paroxysmal atrial fibrillation: Notes For Next Care Provider Medication Changes From Visit Cefdinir 300 mg twice daily for 10 more days Doxycycline 100 mg twice daily for 10 more days Admission HPI Per Admitting Provider Patient is a 88-year-old gentleman with history of diabetes mellitus type 2, dyslipidemia, chronic gout, paroxysmal atrial fibrillation on anticoagulation, peripheral vascular disease status post recent bypass surgery from left popliteal artery to dorsalis pedis at [facility] and history of coronary artery disease who was admitted after a month of with cellulitis of the left lower extremity, he appears to be having sepsis on admission with fever, hemodynamically was stable, he was empirically placed on vancomycin and Zosyn, arterial and venous Doppler were done, awaiting to review records sent from [facility], vascular surgery was consulted. Patient was seen by vascular surgery but no further investigation or treatment or intervention was recommended, patient was overall treated for 5 days with vancomycin and Zosyn with much improvement however he continues to have a small rim of erythema in the medial aspect of his incision, also I am aware that at the end of his long incision toward inner aspect of the groin on the left side he has a small opening but that is not significant I think that was as a result of contact with urine when his condom catheter came off. He was seen and examined, he is otherwise stable, I am planning to transition to combination of cefdinir and doxycycline for 10 more days, he can be discharged home, this was communicated with case management, it seems that he is willing to go back home with home health and I concur with this plan. Updated Medication List Medication Instructions Recorded Confirmed Type nitroglycerin 0.4 mg sublingual 0.4 mg sublingual .PRN PRN Chest 03/20/19 11/06/24 History tablet (Nitrostat) Pain omeprazole 20 mg capsule,delayed 20 mg PO DAILYBB 03/20/19 11/06/24 History release atorvastatin 40 mg tablet 40 mg PO DAILY 07/18/22 11/06/24 History gabapentin 600 mg tablet 600 mg PO TID 07/18/22 11/06/24 History allopurinol 300 mg tablet 300 mg PO HS 08/12/22 11/06/24 History aspirin 81 mg tablet,delayed 81 mg PO DAILY 08/12/22 11/06/24 History release multivitamin 1 tab PO DAILY 08/12/22 11/06/24 History acetaminophen 325 mg tablet 650 mg (2 x 325 mg) PO Q4H PRN 08/16/22 11/06/24 Rx fever or pain #30 tabs apixaban 5 mg tablet (Eliquis) 5 mg PO AMHS 11/06/24 11/06/24 History furosemide 40 mg tablet 40 mg PO QAM 11/06/24 11/06/24 History metformin 500 mg tablet,extended 1,000 mg PO AMPM 11/06/24 11/06/24 History release 24 hr metoprolol succinate 50 mg 150 mg PO AMHS 11/06/24 11/06/24 History tablet,extended release 24 hr mirabegron 50 mg tablet,extended 50 mg PO QAM 11/06/24 11/06/24 History release 24 hr tramadol 50 mg tablet 50 mg PO Q6 PRN Pain 11/06/24 11/06/24 History cefdinir 300 mg capsule 300 mg PO BID #20 caps 11/12/24 Rx doxycycline monohydrate 100 mg 100 mg PO BID 10 days #20 caps 11/12/24 Rx capsule Hospital Stay Data Consultations 11/06/24 23:25 ED Decision to Admit Stat 11/07/24 08:00 Consult Vascular Surgery Routine Diagnostic Imagining Performed 11/06/24 22:04 US venous doppler LE LT Stat 11/06/24 23:53 US arterial duplex LE LT Stat Pending Results Patient Have Any Pending Studies at Discharge: No Discharge Instructions Given to Patient (Per Discharging Provider) Patient to complete 10 more days of oral antibiotic as written Total Time Total Time Spent Total Time Spent (In Minutes): More than 35 minutes
--- NOTE | 2024-11-12 14:20 | Communication Note ---
Date of Service: November 12, 2024 on today's date patient agreed with Rehab placement,Discharge was canceled and postponed to at least tomorrow,CM is aware.
[2024-11-13] MEDS: DOXYCYCLINE HYCLATE 100 MG CAP PO SCH (09:04)
[2024-11-13] MEDS: CEFDINIR 300 MG CAP PO SCH (09:04)
--- NOTE | 2024-11-13 09:12 | Hospitalist Progress Note ---
Date of Service November 13, 2024 Assessment & Plan (1) Cellulitis of left lower extremity: Plan: Will transition to combination of cefdinir and doxycycline for total of 10 days. (2) Sepsis: Plan: This has resolved. (3) Peripheral arterial disease: Plan: Continue with aspirin and Lipitor. (4) Hypomagnesemia: Plan: Replaced and resolved. (5) Dyslipidemia: Plan: Continue with Lipitor 40 mg daily. (6) Diabetes mellitus type 2, controlled: Plan: Glycemic control is adequate, managed with sliding scale coverage if needed. (7) Chronic gout: Plan: Continue with allopurinol 300 mg daily. (8) Paroxysmal atrial fibrillation: Plan: Heart rate is controlled, continue with Eliquis and Toprol XL 150 mg twice daily. (9) Hypertension, essential: Plan: Blood pressure is at times elevated, I do not think he is in pain or if there is any other etiology for this, I will increase his treatment, will add lisinopril 5 mg daily. Plan Patient has tentatively been planned for transfer to rehab on 11/14/2024. Admission and Anticipated Discharge Date Admission Date: November 07, 2024 Subjective Patient is a 88-year-old gentleman with history of diabetes mellitus type 2, dyslipidemia, chronic gout, paroxysmal atrial fibrillation on anticoagulation, peripheral vascular disease status post recent bypass surgery from left popliteal artery to dorsalis pedis at [facility] and history of coronary artery disease who was admitted after a month of with cellulitis of the left lower extremity, he appears to be having sepsis on admission with fever, hemo dynamically was stable, he was empirically placed on vancomycin and Zosyn, arterial and venous Doppler were done, awaiting to review records sent from [facility], vascular surgery was consulted. Patient was empirically placed on vancomycin and Zosyn. He continued to show improvement, patient was ready for discharge on 11/12/2024 however he changed his opinion about going to rehab and so now rehab placement is underway. Antibiotic was changed to cefdinir and doxycycline. He was seen and examined today, the area continues to show gradual improvement. Physical Exam Physical Exam: VITALS: Reviewed. GEN: Healthy appearing, well-developed, NAD. CV: RRR, no m/r/g. LUNGS: CTAB, no w/r/c. ABD: Soft, NT/ND, NBS, no masses or organomegaly. SKIN: Ongoing erythema unchanged from yesterday Results & Data Results & Data Vital Signs (Past 12 Hours) Vital Signs Temp Pulse Pulse Resp BP Pulse Ox O2 Del Method 11/13/24 07:23 60 11/13/24 07:19 37.0 C 66 19 165/82 H 92 Room Air 11/13/24 02:40 36.5 C 65 20 153/80 H 94 Room Air 11/12/24 23:58 151/70 H 11/12/24 23:10 36.6 C 67 20 91 Nasal Cannula 11/12/24 21:50 70 O2 Flow Rate 11/13/24 07:23 11/13/24 07:19 11/13/24 02:40 11/12/24 23:58 11/12/24 23:10 2.5 11/12/24 21:50 Laboratory Results Laboratory Results - last 24 hr 11/12/24 11/12/24 11/12/24 11:20 16:28 21:11 POC Glucose 140 H 137 H 151 H 11/13/24 07:18 POC Glucose 129 H Medications Administered Current Inpatient Medications Acetaminophen (Acetaminophen 325 Mg Tab) 650 mg PO Q6H PRN PRN Reason: Pain or Fever Stop: 12/07/24 05:29 Last Admin: 11/12/24 21:29 Dose: 650 mg Allopurinol (Allopurinol 300 Mg Tab) 300 mg PO HS [place] Stop: 12/07/24 20:59 Last Admin: 11/12/24 21:29 Dose: 300 mg Apixaban (Apixaban 5 Mg Tablet) 5 mg PO AMHS [place] Stop: 12/07/24 08:59 Last Admin: 11/13/24 08:28 Dose: 5 mg Aspirin (Aspirin 81 Mg Ectab) 81 mg PO DAILY [place] Stop: 12/07/24 08:59 Last Admin: 11/13/24 08:27 Dose: 81 mg Atorvastatin Calcium (Atorvastatin 40 Mg Tab) 40 mg PO DAILY [place] Stop: 12/07/24 08:59 Last Admin: 11/13/24 08:27 Dose: 40 mg Cefdinir (Cefdinir 300 Mg Cap) 300 mg PO BID [place] Stop: 11/20/24 08:59 Last Admin: 11/13/24 09:04 Dose: 300 mg Dextrose (Dextrose 50% 50 Ml Syringe) 25 - 50 ml IV UD PRN; Protocol PRN Reason: Hypoglycemia Protocol Stop: 12/07/24 05:29 Doxycycline Hyclate (Doxycycline Hyclate 100 Mg Cap) 100 mg PO BID [facility] Stop: 11/20/24 08:59 Last Admin: 11/13/24 09:04 Dose: 100 mg Gabapentin (Gabapentin 600 Mg Tab) 600 mg PO TID [place] Stop: 12/07/24 08:59 Last Admin: 11/13/24 08:28 Dose: 600 mg Glucagon (Glucagon For Inj 1 Mg Vial) 1 mg SQ UD PRN; Protocol PRN Reason: Hypoglycemia Protocol Stop: 12/07/24 05:29 Glucose (Glucose 40% Gel 15 Gm Tube) 15 - 30 gm PO UD PRN; Protocol PRN Reason: Hypoglycemia Protocol Stop: 12/07/24 05:29 Glucose (Glucose 10 Tab/Tube) 4 - 8 tab PO UD PRN; Protocol PRN Reason: Hypoglycemia Protocol Stop: 12/07/24 05:29 Insulin Aspart (Insulin Aspart Per Unit Charge) 0 units SC ACHS [facility] Stop: 12/07/24 11:29 Last Admin: 11/13/24 08:26 Dose: 3 units Metoprolol Succinate (Metoprolol Succ 50mg Ext Rel Tab) 150 mg PO AMHS [facility] Stop: 12/07/24 08:59 Last Admin: 11/13/24 08:28 Dose: 150 mg Miscellaneous (Carbohydrates For Hypoglycemia ) 15 - 30 gm PO UD PRN PRN Reason: Hypoglycemia Protocol Stop: 12/07/24 05:29 Multivitamins (Multivitamin Tab) 1 tab PO DAILY [facility] Stop: 12/07/24 08:59 Last Admin: 11/13/24 08:27 Dose: 1 tab Nitroglycerin (Nitroglycerin Sl 0.4 Mg/Tab Tab) 0.4 mg SL Q5M PRN PRN Reason: Chest Pain Stop: 12/07/24 05:29 Pantoprazole Sodium (Pantoprazole 40 Mg Tab) 40 mg PO DAILYBB [facility] Stop: 12/07/24 06:29 Last Admin: 11/13/24 06:20 Dose: 40 mg Polyethylene Glycol (Polyethylene (Miralax) 17 Gm Pack) 17 gm PO DAILY PRN PRN Reason: Constipation Stop: 12/07/24 05:29 Last Admin: 11/11/24 07:49 Dose: 17 gm Tramadol HCl (Tramadol Hcl 50 Mg Tablet) 50 mg PO Q6 PRN PRN Reason: Pain Stop: 12/07/24 05:29 Last Admin: 11/13/24 00:18 Dose: 50 mg Vibegron (Vibegron 75 Mg Tab) 75 mg PO QAM [place] Stop: 12/07/24 08:59 Last Admin: 11/13/24 08:26 Dose: 75 mg (2) Sepsis Sepsis acute organ dysfunction status: without acute organ dysfunction Sepsis type: sepsis due to unspecified organism Qualified Code(s): A41.9 - Sepsis, unspecified organism (6) Diabetes mellitus type 2, controlled Diabetes mellitus manager long term care insulin use: without manager long term care use Diabetes mellitus complication status: with neurologic complications Diabetes mellitus complication detail: with polyneuropathy Qualified Code(s): E11.42 - Type 2 diabetes mellitus with diabetic polyneuropathy (7) Chronic gout Gout site: unspecified site Gout etiology: idiopathic Presence of tophus: without tophus Qualified Code(s): M1A.00X0 - Idiopathic chronic gout, unspecified site, without tophus (tophi)
[2024-11-13] MEDS: lisinopril 5 MG TAB PO SCH (10:22)
[2024-11-14 07:48] VITALS: RESP 18; TEMP 98.2; O2SAT 96
[2024-11-14 13:19] VITALS: BP 156/83; PULSE 66
--- NOTE | 2024-11-14 17:21 | Discharge Summary ---
Discharge Summary Date of Service November 14, 2024 Principal Dx & Hospital Course #1 = Principal Diagnosis (1) Cellulitis of left lower extremity: -sent to SNF with abx (2) Sepsis: -improved at discharge (3) Peripheral arterial disease: -Continue with aspirin and Lipitor. (4) Hypomagnesemia: -Replaced and resolved. (5) Dyslipidemia: -Continue with Lipitor 40 mg daily. (6) Diabetes mellitus type 2, controlled: -Glycemic control is adequate, managed with sliding scale coverage if needed. (7) Chronic gout: -Continue with allopurinol 300 mg daily. (8) Paroxysmal atrial fibrillation: -Heart rate is controlled, continue with Eliquis and Toprol XL 150 mg twice daily. (9) Hypertension, essential: -continue lisinopril 5 mg daily. Plan Discharge to rehab today Notes For Next Care Provider [id number]-old male with multiple comorbidities including paroxysmal atrial fibrillation on anticoagulation and any recent post bypass surgery in the left popliteal to dorsalis pedis at [facility] who presented for cellulitis of the lower extremity was treated with antibiotics and improved. Vascular surgery was consulted but had no further recommendations for treatment surgically. Records were sent over from [facility] and reviewed. Concern about ability of patient to take care of himself at home so requested PT OT evaluation. Patient was discharged to rehab facility. Medication Changes From Visit -sent back with course of abx Admission HPI Per Admitting Provider Patient is a 88-year-old gentleman with history of diabetes mellitus type 2, dyslipidemia, chronic gout, paroxysmal atrial fibrillation on anticoagulation, peripheral vascular disease status post recent bypass surgery from left popliteal artery to dorsalis pedis at [facility] and history of coronary artery disease who was admitted after a month of with cellulitis of the left lower extremity, he appears to be having sepsis on admission with fever, hemodynamically was stable, he was empirically placed on vancomycin and Zosyn, arterial and venous Doppler were done, awaiting to review records sent from [facility], vascular surgery was consulted. Patient was seen by vascular surgery but no further investigation or treatment or intervention was recommended, patient was overall treated for 5 days with vancomycin and Zosyn with much improvement however he continues to have a small rim of erythema in the medial aspect of his incision, also I am aware that at the end of his long incision toward inner aspect of the groin on the left side he has a small opening but that is not significant I think that was as a result of contact with urine when his condom catheter came off. He was seen and examined, he is otherwise stable, I am planning to transition to combination of cefdinir and doxycycline for 10 more days, he can be discharged home, this was communicated with case management, it seems that he is willing to go back home with home health and I concur with this plan. Admission Exam Per Admitting Provider General- Not in acute distress. Head- atraumatic Eyes- PERRL. ENT- oropharynx clear Neck- supple, no JVD. Lungs- clear to auscultation no wheezing or crackles Heart- regular rhythm; no murmur, no gallop Abdomen- normal bowel sounds, soft, nontender, no distension Extremities- left lower extremity erythematous and warm. recent popliteal to dorsalis pedis by pass surgery site sutures seen. no drainage seen., Neuro- alert, oriented PERRL, no facial palsy; no dysarthria; obeys simple commands Discharge Exam Gen: A&O 3 NAD HEENT: NCAT, EOMI, not icteric. External ears normal. No rhinorrhea. Moist mucous membranes. Neck: Supple, full range of motion, no observable masses, No meningeal sign. Lungs: No Respiratory distress. CV: RRR, no edema. Abdomen: Soft, nondistended, No rebound tenderness. MSK: difficulty with ADLs witnessed at bedside, s/p bypass with improvement in erythema on left lower extremity Skin: No rashes, petechiae, lesions. Normal color per patient. Neuro: Normal Gait, Grossly intact. Psych: Appropriate for situation. Updated Medication List Medication Instructions Recorded Confirmed Type nitroglycerin 0.4 mg sublingual 0.4 mg sublingual .PRN PRN Chest 03/20/19 11/06/24 History tablet (Nitrostat) Pain omeprazole 20 mg capsule,delayed 20 mg PO DAILYBB 03/20/19 11/06/24 History release atorvastatin 40 mg tablet 40 mg PO DAILY 07/18/22 11/06/24 History gabapentin 600 mg tablet 600 mg PO TID 07/18/22 11/06/24 History allopurinol 300 mg tablet 300 mg PO HS 08/12/22 11/06/24 History aspirin 81 mg tablet,delayed 81 mg PO DAILY 08/12/22 11/06/24 History release multivitamin 1 tab PO DAILY 08/12/22 11/06/24 History acetaminophen 325 mg tablet 650 mg (2 x 325 mg) PO Q4H PRN 08/16/22 11/06/24 Rx fever or pain #30 tabs apixaban 5 mg tablet (Eliquis) 5 mg PO AMHS 11/06/24 11/06/24 History furosemide 40 mg tablet 40 mg PO QAM 11/06/24 11/06/24 History metformin 500 mg tablet,extended 1,000 mg PO AMPM 11/06/24 11/06/24 History release 24 hr metoprolol succinate 50 mg 150 mg PO AMHS 11/06/24 11/06/24 History tablet,extended release 24 hr mirabegron 50 mg tablet,extended 50 mg PO QAM 11/06/24 11/06/24 History release 24 hr tramadol 50 mg tablet 50 mg PO Q6 PRN Pain 11/06/24 11/06/24 History cefdinir 300 mg capsule 300 mg PO BID #20 caps 11/12/24 Rx doxycycline monohydrate 100 mg 100 mg PO BID 10 days #20 caps 11/12/24 Rx capsule Hospital Stay Data Consultations 11/06/24 23:25 ED Decision to Admit Stat 11/07/24 08:00 Consult Vascular Surgery Routine Diagnostic Imagining Performed 11/06/24 22:04 US venous doppler LE LT Stat 11/06/24 23:53 US arterial duplex LE LT Stat Pending Results Patient Have Any Pending Studies at Discharge: No Discharge Instructions Given to Patient (Per Discharging Provider) Patient to complete 10 more days of oral antibiotic as written. Please continue to work hard on improving mobility and ADLs. Total Time Total Time Spent Total Time Spent (In Minutes): I spent a total of 35 minutes coordinating, documenting, and providing care for this patient excluding time spent in the performance of separately billed services.
== END 2024-11-14 13:46 | DRG 872 ==
LOC: ED 21:40 → SUATTDRO 11-07 04:33 → EDINP 11-07 04:33 → 2S 11-07 05:30